=== PATIENT | male | born 1955 | race Caucasian/White ===

== ENCOUNTER 2022-11-16 08:24 | Outpatient (OUT) | payer OTHER, SELFPAY ==
[2022-11-16 08:42] LABS: Basophils Absolute Auto 0.1 10^3/uL (0.0-0.1); Basophils Percent Auto 1.2 % (0.2-2.0); Eosinophils Absolute Auto 0.2 10^3/uL (0.0-0.7); Eosinophils Percent Auto 2.3 % (0.9-7.0); Hematocrit 42.7 % (42.0-54.0); Hemoglobin 13.6 g/dL (14.0-18.0); Immature Granulocytes Abs Auto 0.04 10^3/uL (0.00-0.03); Immature Granulocytes Pct Auto 0.5 % (0.0-0.5); Lymphocytes Absolute Auto 0.7 10^3/uL (1.2-3.8); Lymphocytes Percent Auto 9.9 % (20.5-60.0); Mean Corpuscular HGB Conc 31.9 g/dL (29.9-35.2); Mean Corpuscular Volume 87.9 fL (80.0-94.0); Mean Platelet Volume 9.2 fL (9.5-13.5); Monocytes Absolute Auto 0.6 10^3/uL (0.3-0.8); Monocytes Percent Auto 8.4 % (1.7-12.0); Neutrophils Absolute Auto 5.7 10^3/uL (1.4-6.5); Neutrophils Percent Auto 77.7 % (43.0-75.0); Platelet Count 334 10^3/uL (150-450); Red Blood Count 4.86 10^6/uL (4.70-6.10); White Blood Count 7.4 10^3/uL (4.0-11.0)
[2022-11-16 10:09] LABS: Prostate Specific Antigen Dx 0.38 ng/mL (<=4.00)
[2022-11-16 10:10] LABS: Alanine Aminotransferase 20 U/L (16-63); Albumin Globulin Ratio 0.9; Albumin Level 3.8 g/dL (3.4-5.0); Alkaline Phosphatase 100 U/L (46-116); Anion Gap 13.7; Aspartate Amino Transferase 18 U/L (15-37); BUN Creatinine Ratio 5.6; Bilirubin Total 0.9 mg/dL (0.2-1.0); Calcium 8.6 mg/dL (8.5-10.1); Carbon Dioxide 26.2 mmol/L (21.0-32.0); Chloride 92 mmol/L (98-107); Chol HDL Ratio 3.9; Cholesterol 151 mg/dL (<=200); Estimated GFR (African America >60 (>=60); Estimated GFR (Non-African Ame >60 (>=60); Globulin 4.3 g/dL; Glucose 89 mg/dL (74-106); HDL Cholesterol 39 mg/dL (40-60); Potassium 3.9 mmol/L (3.5-5.1); Sodium 128 mmol/L (136-145); Thyroid Stimulating Hormone 0.533 uIU/mL (0.358-3.740); Total Protein 8.1 g/dL (6.4-8.2); Triglycerides 88 mg/dL (<=150); VLDL CHOLESTEROL 17.6 mg/dL
== END 2022-11-16 08:25 | disposition home or self-care (01) ==
LOC: LAB 08:25
PROVIDERS: PCP Family Medicine; Visit Provider Family Medicine
DX: Z00.00 Encounter for general adult medical examination without abnormal findings (principal); E03.9 Hypothyroidism, unspecified
CPT/HCPCS: 36415; 80053; 80061; 84153; 84443; 85025

== ENCOUNTER 2022-12-22 14:03 | Outpatient (OUT) | payer MEDICARE, OTHER, SELFPAY ==
[2022-12-22 14:28] LABS: Basophils Absolute Auto 0.1 10^3/uL (0.0-0.1); Basophils Percent Auto 0.9 % (0.2-2.0); Eosinophils Absolute Auto 0.2 10^3/uL (0.0-0.7); Eosinophils Percent Auto 1.2 % (0.9-7.0); Hematocrit 41.5 % (42.0-54.0); Hemoglobin 12.9 g/dL (14.0-18.0); Immature Granulocytes Abs Auto 0.09 10^3/uL (0.00-0.03); Immature Granulocytes Pct Auto 0.7 % (0.0-0.5); Lymphocytes Absolute Auto 1.1 10^3/uL (1.2-3.8); Lymphocytes Percent Auto 8.5 % (20.5-60.0); Mean Corpuscular HGB Conc 31.1 g/dL (29.9-35.2); Mean Corpuscular Hemoglobin 29.1 pg (25.9-34.0); Mean Corpuscular Volume 93.5 fL (80.0-94.0); Mean Platelet Volume 8.9 fL (9.5-13.5); Monocytes Absolute Auto 0.8 10^3/uL (0.3-0.8); Monocytes Percent Auto 6.5 % (1.7-12.0); Neutrophils Absolute Auto 10.5 10^3/uL (1.4-6.5); Neutrophils Percent Auto 82.2 % (43.0-75.0); Platelet Count 380 10^3/uL (150-450); Red Blood Count 4.44 10^6/uL (4.70-6.10); Red Cell Distribution Width 16.1 % (11.0-15.0); White Blood Count 12.8 10^3/uL (4.0-11.0)
[2022-12-22 15:02] LABS: Alanine Aminotransferase 21 U/L (16-63); Albumin Level 4.1 g/dL (3.4-5.0); Alkaline Phosphatase 86 U/L (46-116); Anion Gap 8.7; Aspartate Amino Transferase 17 U/L (15-37); BUN Creatinine Ratio 6.7; Bilirubin Total 0.5 mg/dL (0.2-1.0); Calcium 8.4 mg/dL (8.5-10.1); Carbon Dioxide 26.7 mmol/L (21.0-32.0); Chloride 86 mmol/L (98-107); Estimated GFR (African America >60 (>=60); Estimated GFR (Non-African Ame >60 (>=60); Glucose 93 mg/dL (74-106); Magnesium 1.7 mg/dL (1.8-2.4); Potassium 3.4 mmol/L (3.5-5.1); Thyroid Stimulating Hormone 0.878 uIU/mL (0.358-3.740); Total Protein 8.1 g/dL (6.4-8.2)
[2022-12-22 15:22] LABS: Sodium 118 mmol/L (136-145)
== END 2022-12-22 14:04 | disposition home or self-care (01) ==
PROVIDERS: PCP Family Medicine; Visit Provider Family Medicine
DX: I10 Essential (primary) hypertension (principal); E03.9 Hypothyroidism, unspecified
CPT/HCPCS: 36415; 80053; 83735; 84443; 85025

== ENCOUNTER 2022-12-25 10:08 | Outpatient (OUT) | payer MEDICARE, OTHER, SELFPAY ==
[2022-12-25 11:28] LABS: Basophils Absolute Auto 0.1 10^3/uL (0.0-0.1); Basophils Percent Auto 1.1 % (0.2-2.0); Eosinophils Absolute Auto 0.2 10^3/uL (0.0-0.7); Eosinophils Percent Auto 1.8 % (0.9-7.0); Hematocrit 44.6 % (42.0-54.0); Hemoglobin 13.7 g/dL (14.0-18.0); Immature Granulocytes Abs Auto 0.08 10^3/uL (0.00-0.03); Immature Granulocytes Pct Auto 0.7 % (0.0-0.5); Lymphocytes Absolute Auto 1.1 10^3/uL (1.2-3.8); Mean Corpuscular HGB Conc 30.7 g/dL (29.9-35.2); Mean Corpuscular Hemoglobin 28.8 pg (25.9-34.0); Mean Corpuscular Volume 93.9 fL (80.0-94.0); Mean Platelet Volume 9.2 fL (9.5-13.5); Monocytes Absolute Auto 0.6 10^3/uL (0.3-0.8); Neutrophils Absolute Auto 8.6 10^3/uL (1.4-6.5); Neutrophils Percent Auto 80.4 % (43.0-75.0); Platelet Count 441 10^3/uL (150-450); Red Blood Count 4.75 10^6/uL (4.70-6.10); Red Cell Distribution Width 16.2 % (11.0-15.0); White Blood Count 10.7 10^3/uL (4.0-11.0)
[2022-12-25 11:34] LABS: Alanine Aminotransferase 23 U/L (16-63); Albumin Globulin Ratio 0.9; Albumin Level 4.1 g/dL (3.4-5.0); Alkaline Phosphatase 91 U/L (46-116); Anion Gap 8.9; Aspartate Amino Transferase 19 U/L (15-37); BUN Creatinine Ratio 8.6; Bilirubin Total 0.6 mg/dL (0.2-1.0); Calcium 8.6 mg/dL (8.5-10.1); Carbon Dioxide 29.1 mmol/L (21.0-32.0); Chloride 98 mmol/L (98-107); Estimated GFR (African America >60 (>=60); Estimated GFR (Non-African Ame >60 (>=60); Globulin 4.5 g/dL; Glucose 120 mg/dL (74-106); Magnesium 1.8 mg/dL (1.8-2.4); Sodium 132 mmol/L (136-145); Thyroid Stimulating Hormone 0.622 uIU/mL (0.358-3.740); Total Protein 8.6 g/dL (6.4-8.2)
== END 2022-12-25 10:09 | disposition home or self-care (01) ==
PROVIDERS: PCP Family Medicine; Visit Provider Family Medicine
DX: I10 Essential (primary) hypertension (principal); E03.9 Hypothyroidism, unspecified
CPT/HCPCS: 36415; 80053; 83735; 84443; 85025

== ENCOUNTER 2023-07-18 10:07 | Outpatient (OUT) | payer MEDICARE, OTHER, SELFPAY ==
[2023-07-18 11:58] LABS: Alanine Aminotransferase 29 U/L (16-63); Albumin Globulin Ratio 0.9; Albumin Level 3.5 g/dL (3.4-5.0); Alkaline Phosphatase 111 U/L (46-116); Anion Gap 12.4; Aspartate Amino Transferase 24 U/L (15-37); BUN Creatinine Ratio 9.2; Bilirubin Total 0.5 mg/dL (0.2-1.0); Calcium 8.4 mg/dL (8.5-10.1); Carbon Dioxide 27.8 mmol/L (21.0-32.0); Chloride 97 mmol/L (98-107); Estimated GFR (African America >60 (>=60); Estimated GFR (Non-African Ame >60 (>=60); Glucose 108 mg/dL (74-106); Magnesium 1.9 mg/dL (1.8-2.4); Potassium 4.2 mmol/L (3.5-5.1); Sodium 133 mmol/L (136-145); TSH W/ REFLEX FT4 0.406 uIU/mL (0.358-3.740); Total Protein 7.5 g/dL (6.4-8.2)
== END 2023-07-18 10:08 | disposition home or self-care (01) ==
LOC: LAB 10:10
PROVIDERS: PCP Family Medicine; Visit Provider Family Medicine
DX: M79.89 Other specified soft tissue disorders (principal)
CPT/HCPCS: 36415; 80053; 83735; 83880; 84443

== ENCOUNTER 2023-07-30 10:12 | Outpatient (OUT) | payer MEDICARE, OTHER, SELFPAY ==
[2023-07-30 10:37] LABS: Basophils Absolute Auto 0.1 10^3/uL (0.0-0.1); Basophils Percent Auto 1.3 % (0.2-2.0); Eosinophils Absolute Auto 0.2 10^3/uL (0.0-0.7); Eosinophils Percent Auto 2.2 % (0.9-7.0); Hematocrit 42.6 % (42.0-54.0); Hemoglobin 13.1 g/dL (14.0-18.0); Immature Granulocytes Abs Auto 0.05 10^3/uL (0.00-0.03); Immature Granulocytes Pct Auto 0.5 % (0.0-0.5); Lymphocytes Absolute Auto 1.1 10^3/uL (1.2-3.8); Lymphocytes Percent Auto 10.6 % (20.5-60.0); Mean Corpuscular HGB Conc 30.8 g/dL (29.9-35.2); Mean Corpuscular Hemoglobin 29.5 pg (25.9-34.0); Mean Corpuscular Volume 95.9 fL (80.0-94.0); Mean Platelet Volume 9.4 fL (9.5-13.5); Monocytes Absolute Auto 0.9 10^3/uL (0.3-0.8); Neutrophils Absolute Auto 7.5 10^3/uL (1.4-6.5); Neutrophils Percent Auto 76.4 % (43.0-75.0); Platelet Count 366 10^3/uL (150-450); Red Blood Count 4.44 10^6/uL (4.70-6.10); Red Cell Distribution Width 13.4 % (11.0-15.0); White Blood Count 9.9 10^3/uL (4.0-11.0)
== END 2023-07-30 10:13 | disposition home or self-care (01) ==
LOC: LAB 10:15
PROVIDERS: PCP Family Medicine
DX: H02.209 Unspecified lagophthalmos unspecified eye, unspecified eyelid (principal); Z01.812 Encounter for preprocedural laboratory examination
CPT/HCPCS: 36415; 85025

== ENCOUNTER 2024-07-07 08:56 | Outpatient (OUT) | payer MEDICARE, OTHER, SELFPAY ==
--- NOTE | 2024-07-07 09:15 | NM_ITS ---
Patient Name: ALYSSIA GARCES MR#: [id number] : 1955 Exam Date: 07/07/2024 Ordering Doctor: DR. ROMULO CLARK RADIOLOGY REPORT PROCEDURE: NM BETH PERF SPECT REST STR COMPARISON: None. INDICATIONS: CHEST PAIN, SYNCOPE, HYPERTENSION TECHNIQUE: Exam Description: Rest/Stress two day protocol gated SPECT Rest Imagin.6 mCi Tc-99m Cardiolite IV on 07/07/2024 Stress Imaging 25.6 mCi Tc-99m Cardiolite IV on 07/08/2024 Exercise Protocol: Chris Heart Rate (bpm): Rest: 88 Max: 137 PMHR: 89 Blood Pressure: Rest: 162/96 Max: 180/96 Symptoms: Rest and peak stress ECG findings were pending and the exercise portion of the study was pending per attending physician [facility] . For more details, please see separate cardiac stress test report. FINDINGS: QUALITY OF STUDY: Good PERFUSION DEFECT: LOCATION: Inferior SIZE: Moderate SEVERITY: Moderate TYPE: Fixed and likely due to diaphragm attenuation WALL MOTION: Normal wall motion LV SIZE: 125 mL. TID / TCD: 0.9 LVEF: Calculated EF 59%. SUMMARY: Myocardial perfusion imaging study is normal CONCLUSION: 1. Myocardial perfusion is normal with soft tissue attenuation 2. Global left ventricular systolic function is normal 3. No evidence of transient ischemic dilatation Dictated by: Edgar Vasquez M.D. on 07/09/2024 at 12:28 Approved by: Edgar Vasquez M.D. on 07/09/2024 at 12:32
== END 2024-07-07 08:57 | disposition home or self-care (01) ==
LOC: NM 08:57
PROVIDERS: PCP Family Medicine; Visit Provider Family Medicine
DX: R55 Syncope and collapse (principal); I10 Essential (primary) hypertension; R07.9 Chest pain, unspecified
CPT/HCPCS: 78452; A9500

== ENCOUNTER 2024-07-08 08:34 | Outpatient (OUT) | payer MEDICARE, OTHER, SELFPAY ==
--- NOTE | 2024-07-08 | PCN_ITS ---
CARDIAC STRESS TEST Requesting Physician: Procedure Date: 07/08/2024 [facility] EKG STRESS TEST INDICATION FOR THE TEST: Syncope. The procedure was explained to the patient including details as well as risks and benefits and the patient was agreeable to proceed. Resting EKG showed normal sinus rhythm, heart rate 85 beats per minute, poor R progression with late transition in precordial leads. No T or ST changes. Resting blood pressure 162/96 mm/Hg.. The patient was exercised according to standard Chris protocol, and was able to finish 4 minutes and 10 seconds of exercise consistent with 7 METS. Patient achieved max heart rate of 137 beats per minute, which represents 89% of age predicted maximum heart rate. Maximum blood pressure of 180/96 mm/Hg. The patient was monitored for a total of 6 minutes into recovery phase with heart rate down to 100 beats per minute and blood pressure to 158/90 mm/Hg. Exercise was terminated secondary to dyspnea and generalized fatigue. The patient did not have any chest, neck, jaw or arm discomfort. EKG during exercise, at peak exercise, and during recovery phase did not show significant T or ST changes or significant arrhythmias. CONCLUSION: 1. Maximal stress test achieving 89% of age predicted maximum heart rate. 2. Appropriate heart rate and blood pressure response to exercise. 3. Mildly reduced exercise tolerance. 4. This stress test is negative for exercise induced ischemic symptoms, EKG changes or arrhythmias. 5. The nuclear perfusion images result will be reported separately. [facility]
== END 2024-07-08 08:35 | disposition home or self-care (01) ==
LOC: CARD 08:35
PROVIDERS: PCP Family Medicine; Visit Provider Family Medicine
DX: I10 Essential (primary) hypertension (principal); R55 Syncope and collapse; R07.9 Chest pain, unspecified
CPT/HCPCS: 93017

== ENCOUNTER 2025-02-18 11:07 | Outpatient (OUT) | payer MEDICARE, OTHER, SELFPAY ==
--- OUTSIDE RECORDS SUMMARY | 2025-02-18 11:20 | XMS_ITS | CCD ---
Author Organization [facility] Care Team Providers Care Steward [place] Name Role Phone Romulo Clark Primary Care Provider DO Romulo Clark Primary Care Provider SIMBA Samayoa Attending Provider Romulo Clark Primary Care Adiel Elizabeth Attending Unavailable Petznick, Romulo Lemos Primary Care Unavai lable Warmbrod, Rosalie Cantu Attending Unav ailable Warmbrod, Rosalie Cantu Attending Unav ailable Petznick, Romulo Lemos Primary Care Unavai lable Warmbrod, Rosalie Cantu Attending Unav ailable Petznick, Romulo Lemos Primary Care Unavai lable Warmbrod, Rosalie Cantu Attending Unav ailable Petznick, Romulo Lemos Primary Care Unavai lable Petznick, Romulo Lemos Primary Care Unavai lable Warmbrod, Rosalie Cantu Consulting UnaAdiel Parker Attending Unavailable Petznick, Romulo Lemos Primary Care Adiel lEizabeth Consulting Unavailable Warmbrod, Rosalie Cantu Attending Unav ailable Warmbrod, Rosalie Cantu Attending Unav ailable Petznick, Romulo Lemos Primary Care Unavai lable Petznick, Romulo Lemos Primary Care Emilyi Adiel Mcleod Attending Unavailable Petznick, Romulo Lemos Primary Care Unavai labAdiel Gallegos Attending Unavailable Warmbrod, Rosalie Cantu Attending Unav ailable Petznick, Romulo Lemos Primary Care Unavai lable Petznick, Romulo Lemos Primary Care Unavai lable Lori, Adiel Attending Unavailable Petznick, Romulo Lemos Primary Care Provider Petnelaick, Romulo Lemos Primary Care Provider LAKSHMI, DR MARTIN Admitting Unavailable SIDDIQUI, DR MARTIN Attending Unavailable PETZNICK, ROMULO Primary Care Unavailable MISC, DR CONDE Admitting Unavailable MISC, DR CONDE Attending Unavailable PETZNICK, ROMULO Primary Care Unavailable MISC, DR CONDE Consulting Unavailable PETZNICK, ROMULO Admitting Unavailable PETZNICK, ROMULO Attending Unavailable PETZNICK, ROMULO Primary Care Unavailable PETZNICK, ROMULO Consulting Unavailable Demetriick, Romulo Lemos Primary Care Provider Petznick, DO Romulo Primary Care Provider Yao [employer]IV[employer]ER Ivanna Attending Provider [phone] Yao Ivanna Unavailable Petznick DO, Romulo Lemos Primary Care Provid er Petznick, DO Romulo Primary Care Provider Petznick, DO Romulo Attending Provider Petznick DO, Romulo Lemos Primary Care Provid er Petznick DO, Romulo Vela Primary Care Provider Unavailable Primary Care Provider Unavailabl e SERG FOSTER Attending Unavailable SERG FOSTER Referring Unavailable Petznick Romulo SAMUEL Unavailable Petznick DO, Romulo Primary Care Provider Wesley Newell DO Emergency Provider Petznick DORomulo Dane Unavailable Petnelaick, Romulo Primary Care Unavailable Wesley Newell Admitting Unavailable Wesley Newell Attending Unavailable Petznick, Romulo Primary Care Unavailable Petznick, Romulo Attending Unavailable Petznick, Romulo Admitting Unavailable Petznick DO, Romulo Dane Primary Care Provider MARILUZ RUBIN Referring Unavailable PETZNICK, ROMULO C Primary Care Unavailable MARILUZ RUBIN Referring Unavailable PETZNICK, ROMULO C Primary Care Unavailable Petznick DO, Romulo Primary Care Provider Wesley Newell DO Emergency Provider MARILUZ RUBIN Attending Unavailable RUBIN, MARILUZ N Admitting Unavailable RUBIN, MARILUZ N Attending Unavailable PETZNICK, ROMULO Vela Primary Care Unavailable PETZNICK, ROMULO Vela Primary Care Unavailable RUBIN, MARILUZ N Referring Unavailable PETZNICK, ROMULO Vela Primary Care Unavailable RUBIN, MARILUZ N Attending Unavailable PETZNICK, ROMULO C Primary Care Unavailable RUBIN, MARILUZ N Admitting Unavailable RUBIN, MARILUZ N Attending Unavailable PETZNICK, ROMULO C Primary Care Unavailable RUBIN, MARILUZ N Attending Unavailable PETZNICK, ROMULO C Primary Care Unavailable RUBIN, MARILUZ N Attending Unavailable PETZNICK, ROMULO Vela Primary Care Unavailable PETZNICK, ROMULO LEMOS Primary Care Unavai lablaurence FUCHS, GABO Ramírez Attending Unavailable PETZNICK, ROMULO LEMOS Primary Care ROXANA Diaz Attending Unavailable MARIO SIDDIQUI Referring Unavailable PETZNICK, ROMULO LEMOS Primary Care Unamilesi lable KOLBYHE, GABO Ramírez Referring Unavailable PETZNICK, ROMULO LEMOS Primary Care Unavai lable PETZNICK, ROMULO LEMOS Primary Care Unavai lable PETZNICK, ROMULO LEMOS Primary Care Unavai lable PETZNICK, ROMULO LEMOS Referring Unavai lable PETZNICK, ROMULO LEMOS Primary Care Unavai lable CATRACHITA MARIEE Attending Unavailable MARIO SIDDIQUI Referring Unavailable PETZNICK, ROMULO LEMOS Primary Care MARTA Lee Attending Unavailable MARTA SALAZAR Admitting Unavailable PETZNICK, ROMULO LEMOS Primary Care Unavai lable PETZNICK, ROMULO LEMOS Primary Care Unavai lable PETZNICK, ROMULO LEMOS Primary Care Unavai lable PETZNICK, ROMULO LEMOS Primary Care Unavai MELANI Sagastume Attending Unavailable PETZNICK, ROMULO LEMOS Primary Care Unavai labMARTA Palma Attending Unavailable PETZNICK, ROMULO LEMOS Primary Care Unavai lable GOSHE, GABO Ramírez Referring Unavailable PETZNICK, ROMULO LEMOS Primary Care Unavathompson thompson SELF Referring Unavailable PETZNICK, ROMULO LEMOS Primary Care Unavai lable GOSHE, GABO Ramírez Referring Unavailable GOSHE, GABO Ramírez Attending Unavailable PETZNICK, ROMULO LEMOS Primary Care Unavai lable PETZNICK, ROMULO LEMOS Primary Care Unavai lable SELF Referring Unavailable HOLLY TANG Attending Unavailable PETZNICK, ROMULO LEMOS Primary Care Unavai lable SELF Referring Unavailable MARIO SIDDIQUI Attending Unavailable PETZNICK, ROMULO LEMOS Primary Care Unavai lable MARIO SIDDIQUI Referring Unavailable PETZNICK, ROMULO LEMOS Primary Care Unavai lable SELF Referring Unavailable PETZNICK, ROMULO LEMOS Primary Care Unavai lable PETZNICK, ROMULO LEMOS Primary Care Unavai lable PETZNICK, ROMULO LEMOS Primary Care Unavai lable PETZNICK, ROMULO LEMOS Primary Care Unavai lable HOLLY TAGN Attending Unavailable PETZNICK, ROMULO LEMOS Primary Care Unavai lable SELF Referring Unavailable PETZNICK, ROMULO LEMOS Primary Care Unavai lable MATRA SALAZAR Attending Unavailable TAYLOR MARQUEZ Attending Unavailable PETZNICK, ROMULO Vela Referring Unavailable PETZNICK, ROMULO Vela Attending Unavailable PETITTI, XAVI Villalpando Attending Unavailable FELTERTAYLOR Attending Unavailable PETITTI, XAVI Villalpando Attending Unavailable PETZNICK, ROMULO Vela Attending Unavailable FELTERTAYLOR Attending Unavailable FELTERTAYLOR Attending Unavailable Allergies Allergy ClassificationReported Allergen(s)Allergy TypeDate of OnsetReaction(s) Facility (20 sources)Angiotensin-converting enzyme inhibitor agent; Translations: [LIV INHIBITORS]Drug Xvwjvtlrcuu15-20-7930RivkcSmtrwsoab Clinic (20 sources)Angiotensin-converting enzyme inhibitor agentDrug Intolerance 73-81-9298TiqheCgsbjweuv Clinic (1 source)Angiotensin Converting Enzyme (Liv) InhibitorsDrug allergy (disorder) 53-75-5266Y[facility] Repository (1 source)Angiotensin Converting Enzyme (Liv) InhibitorsDrug allergy (disorder) 35-35[facility]239[facility]dlnxksCh[facility] Medications Current Medications MedicationDrug Class(es)DatesSig (Normalized)Sig (Original)acetaminophen 325 mg oral tablet (20 sources)Start: 06-23-2024 End: 11-44-8220xbeb 2 tablets by mouth every six hours as neededacetaminophen (Tylenol) 325 MG tablet Take 650 mg by mouth every 6 (six) hours if needed 5Activeacetaminophen 325 mg / oxyCODONE hydrochloride 5 mg oral tablet (13 sources)Opioid AgonistStart: 06-20-2024 End: 63-40-4930kuzg 1 tablet by mouth every four hours as neededoxyCODONE- acetaminophen (PERCOCET) 5-325 mg tablet 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 20 tablet 06/20/2024 06/27/2024 ActiveStart: 06-17-2024 End: 60-81-0792Bzmlq: 06-16-2024 End: 01-06-1509wosh 1 tablet into the eye(s) every six hours as needed for pain oxyCODONE-acetaminophen (PERCOCET) 5-325 mg tablet Indications: Pain in right eye 1 tablet every 6 hours as needed for pain 6 tablet 06/16/2024 06/17/2024 Expiredascorbic acid 500 mg chewable tablet (20 sources)Vitamin Ctake 1 tablet by mouth in the morningascorbic acid (Vitamin C) 500 MG tablet Take 500 mg by mouth in the morning. Activetake 2 tablets by mouth once dailyascorbic acid, vitamin C, (VITAMIN C) 500 mg tablet Take 1,000 mg by mouth once daily. Activetake 1 tablet by mouth once dailyascorbic acid, vitamin C, (VITAMIN C) 500 mg tablet Take 500 mg by mouth once daily. 0 Active Vitamin C ActiveComment on above:Take 500 mg by mouth once daily.Take 1,000 mg by mouth once daily.aspirin 81 mg delayed release oral tablet (20 sources)Platelet Aggregation Inhibitor, Nonsteroidal Anti-inflammatory Drug End: 20-21-1352okziydf 81 MG EC tablet 1 (one) time each day at the same time ActiveBABY ASPIRIN ORAL Take by mouth. SuspendedBABY ASPIRIN ORAL Take by mouth. ActiveBABY ASPIRIN ORAL Take by mouth. 0 ActiveComment on above:Take 81 mg by mouth once daily.Take by mouth.carboxymethylcellulose sodium 5 mg/ml ophthalmic solution (20 sources)carboxymethylcellulose (Refresh Plus) 0.5 % ophthalmic solution 1 drop Activecarboxymethylcellulose (REFRESH TEARS) 0.5 % drop Use 1 Drop in both eyes as needed. Active End: 90-99-8079Rtidzoexholanbeeolfmzq Sodium (EYE DROPS OP) Administer into affected eye(s) Ceftazidine 5%-eye drops 2x daily 06/18/2024 Discontinued (Therapy completed)Carboxymethylcellulose Sodium (EYE DROPS OP) Administer into affected eye(s) Ceftazidine 5%-eye drops 2x daily ActiveComment on above:Use 1 Drop in both eyes as needed.Carboxymethylcellulose Sodium (Refresh Contacts) drops (1 source)Start: 80-67-4048Ipooslkvclobqwpojkruqu Sodium (Refresh Contacts) drops Active 1 DROPS EYE-BOTH 4-6 TIMES PER DAY asneeded August 08, 2024 12:00amcefTAZidime ophthlamic solution 5% (50 mg/mL) (IP-CPD) (20 sources)Start: 41-82-3878jxwz 1 drop(s) into the eye(s) twice daily cefTAZidime ophthlamic solution 5% (50 mg/mL) (IP-CPD) Use 1 Drop in the right eye two times a day.15 mL 11 04/16/2024 8:13 AM EST 10/02/2023 SuspendedStart: 05-90-3010gsmn 1 drop(s) into the eye(s) twice dailycefTAZidime ophthlamic solution 5% (50 mg/mL) (IP-CPD) Use 1 Drop in the right eye two times a day.15 mL 11 04/16/2024 8:13 AM EST 10/02/2023 ActiveStart: 45-60-5832lndo 1 drop(s) into the eye(s) twice dailycefTAZidime ophthlamic solution 5% (50 mg/mL) (IP- CPD) Use 1 Drop in the right eye two times a day.15 mL 11 10/02/2023 Active Start: 07-30-2023 End: 46-40-9240eptj 1 drop(s) into the eye(s) every two hourscefTAZidime ophthlamic solution 5% (50 mg/mL) (IP-CPD) Use 1 drop in right eye every 2 hours as directed 15 mL 2 07/30/2023 10/02/2023 DiscontinuedStart: 92-22-1518nrkh 1 drop(s) into the eye(s) every two hourscefTAZidime ophthlamic solution 5% (50 mg/mL) (IP-CPD) Use 1 drop in right eye every 2 hours as directed 15 mL 2 07/30/2023 ActiveStart: 07-27-2023 End: 24-80-1376reee 1 drop(s) into the eye(s) every two hourscefTAZidime ophthlamic solution 5% (50 mg/mL) (IP-CPD) Use 1 Drop in the right eye every 2 hours. 15 mL 2 07/27/2023 08/28/2023 DiscontinuedStart: 02-47-6457ralm 1 drop(s) into the eye(s) every two hourscefTAZidime ophthlamic solution 5% (50 mg/mL) (IP-CPD) Use 1 Drop in the right eye every 2 hours. 15 mL 2 07/27/2023 Active Start: 69-41-1039xgrx 1 drop(s) into the eye(s) every hourcefTAZidime ophthlamic solution 5% (50 mg/mL) (IP-CPD) Place 1 Drop in the right eye every hour while awake. 15 mL 0 07/20/2023 ActiveComment on above:Place 1 Drop in the right eye every hour while awake.Use 1 Drop in the right eye every 2 hours.Use 1 drop in right eye every 2 hours as directedchlorhexidine gluconate 40 mg/ml medicated liquid soap (2 sources)Start: 06-26-2024 End: 74-61-9803kaacsqruvaspi (Hibiclens) 4 % external liquid Indications: Malignant melanoma of neck (Multi) Applytopically once daily as needed for wound care for up to 5 days. 473 mL 06/26/2024 07/03/2024 Discontinued (Stop Taking at Discharge)Start: 06-26-2024 End: 38-34-4976anxa 15 mL by mouth every other daychlorhexidine (Peridex) 0.12 % solution Indications: Malignant melanoma of neck (Multi) Use 15 mL in the mouth or throat if needed (Please rinse mouth night before surgey and morning of surgery) for up to 2 days. 473 mL 06/26/2024 07/03/2024 Discontinued (Stop Taking at Discharge)colchicine 0.6 mg oral tablet (5 sources)Start: 05-19-2024 End: 91-17-1524ipfm 1 tablet by mouth in the morningcolchicine 0.6 mg tablet Take 1 tablet (0.6 mg) by mouth early in the morning.. 05/19/2024 Activedocusate sodium 50 mg / sennosides, mcfp 8.6 mg oral tablet (3 sources)Start: 07-03-2024 End: 49-44-8580ttsr 1 tablet by mouth once dailySenna-Plus 8.6-50 MG tablet Take 1 tablet by mouth Daily 07/03/2024 Activeerythromycin 0.005 mg/mg ophthalmic ointment (20 sources)Macrolide, Macrolide AntimicrobialStart: 33-00-7826fxcnphcltftq (ROMYCIN) 5 mg/gram (0.5 %) ophthalmic ointment Use 1 application in the right eye four times daily. Apply less than a pea-sized amount per application 3.5 g 1 06/23/2024 ActiveStart: 10-09-2022 End: 62-60-4299exgpd 3.5 g into the eye(s) at bedtimeerythromycin (ROMYCIN) 5 mg/gram (0.5 %) ophthalmic ointment apply into right eye at bedtime 3.5 g 2 12/27/2022 ActiveStart: 09-28-2021 End: 20-31-0523tzbhw 3.5 g into the eye(s) at bedtimeerythromycin (ROMYCIN) 5 mg/gram (0.5 %) ophthalmic ointment apply into right eye at bedtime 3.5 g 2 04/12/2022 ActiveStart: 08-24-2021 End: 41-16-4777gwbadfgiphpd (ROMYCIN) 5 mg/gram (0.5 %) ophthalmic ointment Use 1 application in the right eye three times daily. 7 g 2 08/24/2021 09/28/2021 DiscontinuedStart: 05-23-2021 End: 06-51-4872mcvidbhnrkng (ROMYCIN) 5 mg/gram (0.5 %) ophthalmic ointment Use 1 application in the right eye daily at bedtime. Apply 1/2 inch ribbon per application 0 08/05/2021 08/18/2021 DiscontinuedStart: 06-18-2020 End: 72-00-7971mlszedtnrjqf ophthalmic ointment In both eyes and on incisions four times a day X 1 wk then twice aday x 1 wk 7 g 1 06/18/2020 08/05/2021 DiscontinuedStart: 06-10-2020 End: 34-77-3543rqyujhnomqvl ophthalmic ointment Apply 1/2 inch ribbon per application to incision and in eye four times a day X 1 wk then twice a day x 1 wk 7 g 2 06/10/2020 08/05/2021 DiscontinuedErythromycin ActiveErythromycin opthalmic ointment ActiveComment on above:Apply 1/2 inch ribbon per application to incision and in eye four times a day X 1 wk then twice a day x 1 wkIn both eyes and on incisions four times a day X 1 wk then twice a day x 1 wkUse 1 application in the right eye daily at bedtime. Apply 1/2 inch ribbon per applicationUse 1 application in the right eye three times daily.once daily.Use 1 application in the right eye daily at bedtime.apply into right eye at bedtime fluticasone propionate 0.05 mg/actuat metered dose nasal spray (20 sources)CorticosteroidStart: 99-43-4371mhfy 1 spray(s) nasal route once dailyFluticasone Propionate (Allergy Relief (Fluticasone)) 50 mcg/actuation spray,suspension Active 1 SPRAY INTRANASAL Daily August 08, 2024 12:00am administer into each nostrilStart: 04-09-2024 End: 89-32-5167zaix 2 spray(s) nasal route once dailyfluticasone (Flonase) 50 mcg/actuation nasal spray Administer 2 sprays into each nostril once daily. 04/09/2024 ActiveStart: 12-17-2020 End: 34-13-5661qznl 2 spray(s) nasal route once dailyfluticasone (Flonase) 50 MCG/ACT nasal spray Indications: Sinusitis, unspecified chronicity, unspecified location Administer 2 sprays into each nostril Daily 16 g 4 04/09/2024 Active Flonase Activehydroxyurea 500 mg oral capsule (20 sources)AntimetaboliteStart: 01-06-2024 End: 73-79-4535rtnc 1 capsule by mouth twice dailyhydroxyurea (HYDREA) 500 mg capsule Indications: Polycythemia vera (HCC) Take 1 capsule by mouth two times a day. 180 capsule 3 12/04/2024 ActiveStart: 05-14-2023 End: 62-03-8045ytil 1 capsule by mouth twice dailyhydroxyurea (HYDREA) 500 mg capsule Indications: Polycythemia vera (HCC) Take 1 capsule by mouth two times a day. 180 capsule 3 08/28/2023 01/04/2024 DiscontinuedStart: 03-13-2023 End: 13-63-5408zfiy 1 capsule by mouth twice dailyhydroxyurea (HYDREA) 500 mg capsule Indications: Polycythemia vera (HCC) Take 1 capsule by mouth two times a day. Or as directed. 60 capsule 0 03/23/2023 04/18/2023 DiscontinuedStart: 05-02-2022 End: 09-54-8829remp 2 capsules by mouth once dailyhydroxyurea (HYDREA) 500 mg capsule Take 2 capsules by mouth once daily. Or as directed. 180 capsule 3 09/19/2022 03/13/2023 DiscontinuedStart: 10-10-2021 End: 65-13-8922uwnh 1 capsule by mouth twice dailyhydroxyurea (HYDREA) 500 mg capsule Take 1 capsule by mouth twice daily. Or as directed. 180 capsule 3 10/10/2021 05/02/2022 DiscontinuedStart: 05-30-2021 End: 32-05-6969bpnq 1 capsule by mouth twice dailyhydroxyurea (HYDREA) 500 mg capsule Take 1 capsule by mouth twice daily. 180 capsule 3 05/30/2021 10/07/2021 DiscontinuedComment on above:Take 1 capsule by mouth twice daily.Take 1 capsule by mouth twice daily. Or as directed.Take 2 capsules by mouth once daily. Or as directed.Take 1 capsule by mouth two times a day. Or as directed.Take 1 capsule by mouth two times a day.take 1 capsule by mouth twice a daylevocetirizine dihydrochloride 5 mg oral tablet (20 sources)Histamine-1 Receptor AntagonistStart: 01-10-2024 End: 74-66-8795kozh 1 tablet by mouth in the eveninglevocetirizine (Xyzal) 5 MG tablet Indications: Sinusitis, unspecified chronicity, unspecified location , Benign prostatic hyperplasia with urinary obstruction Take 1 tablet (5 mg) by mouth in the evening 90 tablet 3 04/09/2024 04/04/2025 Active End: 37-27-5273kyxfzlwhlahafc (Xyzal) 5 MG tablet Take 5 mg by mouth. Active Xyzal ActiveComment on above:Take 5 mg by mouth.levothyroxine sodium 0.15 mg oral tablet (20 sources)l-ThyroxineStart: 04-05-2021 End: 96-18-8274nkoa 1 tablet by mouth once dailySynthroid 150 MCG tablet Indications: Acquired hypothyroidism TAKE 1 TABLET BY MOUTH DAILY 90 tablet 1 10/06/2024 Activetake 1 tablet by mouth once daily in the morningSynthroid 175 MCG 1 tablet on an empty stomach in the morning Orally Once a day ActiveComment on above:Take 1 tablet by mouth once daily.ondansetron 4 mg disintegrating oral tablet (13 sources)Serotonin-3 Receptor AntagonistStart: 07-03-2024 End: 14-50-2213boqo 1 tablet by mouth every six hours for nauseaondansetron ODT (Zofran-ODT) 4 mg disintegrating tablet Indications: Malignant melanoma of neck (Multi) Dissolve 1 tablet (4 mg) in the mouth every 6 hours if needed for nausea or vomiting for up to 5 days. 20 tablet 07/03/2024 07/08/2024 ActiveStart: 06-23-2024 End: 39-86-8434pdog 1 tablet by mouth every eight hours as neededondansetron (ZOFRAN) 8 mg tablet Take 1 tablet by mouth every 8 hours as needed for nausea/vomiting. 10 tablet 06/23/2024 ActiveoxyCODONE hydrochloride 5 mg oral tablet (4 sources)Opioid AgonistStart: 06-23-2024 End: 03-99-8606kbrb 1 tablet by mouth every eight hours as neededoxyCODONE (Roxicodone) 5 MG immediate release tablet Take 5 mg by mouth every 8 (eight) hours if needed 06/23/2024 Activephenylephrine hydrochloride 25 mg/ml ophthalmic solution (1 source)alpha-1 Adrenergic AgonistStart: 01-15-2024 End: 88-03-6646VAQDUBddskfmd 2.5 % 1 Drop (AK-DILATE, TERRANCE-SYNEPHRINE)polyvinyl alcohol 0.014 ml/ml / povidone 6 mg/ml ophthalmic solution (20 sources)polyvinyl alcohol-povidone (REFRESH) 1.4-0.6 % ophthalmic solution 1 drop into affected eye as needed ActiveComment on above:1 drop into affected eye as neededproparacaine hydrochloride 5 mg/ml ophthalmic solution (1 source)Local AnestheticStart: 01-15-2024 End: 28-08-5258xnfwuatxdvzm 0.5 % 1 Drop (ALCAINE)sodium fluoride 0.011 mg/mg toothpaste (20 sources)Start: 46-92-5208evescotg, sodium, (DENTA-GEL) 1.1 % gel use to BRUSH TEETH 3 to 5 MINUTES once daily 06/21/2022 ActiveComment on above:use to BRUSH TEETH 3 to 5 MINUTES once dailytamsulosin hydrochloride 0.4 mg oral capsule (20 sources)alpha-Adrenergic BlockerStart: 38-83-4116qjsw 1 capsule by mouth every twenty-four hours at bedtimetamsulosin (Flomax) 0.4 MG 24 hr capsule Indications: Benign prostatic hyperplasia with urinary obstruction Take 1 capsule (0.4 mg) by mouth at bedtime 90 capsule 3 04/09/2024 ActiveStart: 34-89-7766jnlm 1 capsule by mouth every twenty-four hours at bedtimetamsulosin (Flomax) 0.4 MG 24 hr capsule Indications: Benign prostatic hyperplasia with urinary obstruction Take 1 capsule (0.4 mg) by mouth at bedtime 90 capsule 3 01/10/2024 ActiveStart: 58-51-5799gjsa 1 capsule by mouth every twenty-four hours at bedtimetamsulosin (Flomax) 0.4 MG 24 hr capsule Indications: Benign prostatic hyperplasia with urinary obstruction take 1 capsule by mouth at bedtime 90 capsule 3 11/12/2023 ActiveStart: 63-47-2947vqth 0.4 mg by mouth once daily at bedtimetamsulosin (FLOMAX) 0.4 mg Take 0.4 mg by mouth daily at bedtime. 12/05/2020 ActiveTamsulosin HCl ActiveComment on above:Take 0.4 mg by mouth daily at bedtime.terbinafine 250 mg oral tablet (2 sources)Allylamine AntifungalStart: 12-10-2023 End: 05-74-4462zqop 1 tablet by mouth once dailyterbinafine (LamISIL) 250 MG tablet Indications: Onychomycosis Take 1 tablet (250 mg) by mouth Daily 90 tablet 12/10/2023 03/09/2024 ActivetraMADol hydrochloride 50 mg oral tablet (3 sources)Opioid AgonistStart: 07-03-2024 End: 14-79-0320nopm 1 tablet by mouth every eight hours for paintraMADol (Ultram) 50 mg tablet Indications: Malignant melanoma of neck (Multi) Take 1 tablet (50 mg) by mouth every 8 hours if needed for severe pain (7 - 10). 10 tablet 07/03/2024 08/07/2024 Discontinued (Stop Taking at Discharge) triamcinolone acetonide 1 mg/ml topical cream (6 sources)CorticosteroidStart: 89-97-8001qhkhuzdfscejv (Kenalog) 0.1 % cream Indications: Other atopic dermatitis Apply topically to hand bid as needed when flaring, set aside when clear. Avoid using on face, axilla, and groin 15 g 11 11/17/2024 Activetropicamide 10 mg/ml ophthalmic solution (1 source)AnticholinergicStart: 01-15-2024 End: 63-91-8461essczlkavra 1 % 1 Drop (MYDRIACYL)valACYclovir 1000 mg oral tablet (7 sources)Herpesvirus Nucleoside Analog DNA Polymerase Inhibitor, Herpes Simplex Virus Nucleoside Analog DNA Polymerase Inhibitor, Herpes Zoster Virus Nucleoside Analog DNA Polymerase InhibitorStart: 08-03-2021 End: 55-83-6780dsdg 1 tablet by mouth three times dailyvalACYclovir (VALTREX) 1 gram Take 1 tablet by mouth three times daily. 90 tablet 3 08/03/2021 09/02/2021 ActiveComment on above:Take 1 tablet by mouth three times daily.vitamin B12 (1 source)Vitamin L28Vnzjsng B 12 Active Completed/Discontinued Medications MedicationDrug Class(es)DatesSig (Normalized)Sig (Original)amLODIPine 5 mg / hydroCHLOROthiazide 12.5 mg / olmesartan medoxomil 40 mg oral tablet (1 source)Thiazide Diuretic, Dihydropyridine Calcium Channel Mars, Angiotensin 2 Receptor Blockertake 1 tablet by mouth every twenty-four hours Bmkhnxctto-srGCGISwqk-DJSU 40-5-12.5 MG 1 tablet Orally Once a day Not-Taking calcium chloride 0.0014 meq/ml / potassium chloride 0.004 meq/ml / sodium chloride 0.103 meq/ml / sodium lactate 0.028 meq/ml injectable solution (1 source)Start: 07-03-2024 End: 92-04-1429zyxp 100 mL intravenously every zhpd246 mL/hr, intravenous, Continuous, Starting on Abigail 07/03/24 at 0900, For 1 day, Recovery (only) cefTAZidime (4 sources)Cephalosporin AntibacterialStart: 09-15-2021 End: 64-07-9415cjks 1 drop(s) into the eye(s) twice dailycefTAZidime ophthalmic solution 2.5% (25 mg/mL) (IP-CPD) Use 1 Drop in the right eye twice daily. 15 mL 1 09/15/2021 09/28/2021 DiscontinuedStart: 73-04-6866dphb 1 drop(s) into the eye(s) twice dailycefTAZidime ophthalmic solution 2.5% (25 mg/mL) (IP-CPD) Use 1 Drop in the right eye twice daily. 15 mL 1 09/15/2021 ActiveComment on above:Use 1 Drop in the right eye twice daily.ciprofloxacin 3 mg/ml ophthalmic solution (11 sources)Quinolone AntimicrobialStart: 08-05-2021 End: 82-12-6723lzxw 1 drop(s) into the eye(s) four times dailyciprofloxacin HCl (CILOXAN) 0.3 % ophthalmic solution Use 1 Drop in the right eye four times daily.0 08/05/2021 09/19/2021 Discontinued (Course of therapy completed)Start: 06-07-2021 End: 02-93-9127bsvg 1 drop(s) into the eye(s) four times dailyciprofloxacin HCl (CILOXAN) 0.3 % ophthalmic solution Use 1 Drop in the right eye four times daily.5 mL 2 06/07/2021 08/03/2021 DiscontinuedComment on above:Use 1 Drop in the right eye four times daily.dexamethasone 6 mg oral tablet (5 sources)CorticosteroidStart: 04-20-2021 End: 66-14-3246rkvb 1 tablet by mouth once dailydexAMETHasone (DECADRON) 6 mg tablet Take 6 mg by mouth once daily. 0 04/20/2021 08/18/2021 Discontinued Comment on above:Take 6 mg by mouth once daily.dexamethasone 1 mg/ml / neomycin 3.5 mg/ml / polymyxin b 72416 unt/ml ophthalmic suspension (8 sources)Aminoglycoside Antibacterial, Polymyxin-class Antibacterial, CorticosteroidStart: 01-30-2022 End: 16-99-9249ltfs 1 drop(s) into the eye(s) four times daily URWIBTFF-JZSRHRUYE-BFZHEDWU 3.5 MG/ML-10,000 UNIT/ML-0.1% EYE DROPS instill 1 drop into right eye four times a day 0 01/30/2022 02/28/2022 DiscontinuedStart: 06-07-2021 End: 23-31-3118bgrx 1 drop(s) into the eye(s) four times dailyneomycin/polymyxin b/dexametha(MAXITROL 3.5 MG/ML-10,000 UNIT/ML-0.1% EYE DROPS,SUSPENSION) Use 1 Drop in the right eye four times daily. 10 mL 5 06/07/2021 08/05/2021 DiscontinuedComment on above:Use 1 Drop in the right eye four times daily. instill 1 drop into right eye four times a dayfluorouracil 50 mg/ml topical cream (9 sources)Nucleoside Metabolic InhibitorStart: 05-20-2024 End: 83-63-5063Zzpmnisrpsyw 5 % cream Discontinued 1 APPLIC TOPICAL Twice daily June 17, 2024 1:00am June 17, 2024 11:24amfurosemide 40 mg oral tablet (5 sources)Loop DiureticStart: 12-07-2022 End: 48-68-6843bapg 1 tablet by mouth once daily in the morningfurosemide (LASIX) 40 mg tablet Take 40 mg by mouth every morning. 0 12/07/2022 03/13/2023 DiscontinuedComment on above:Take 40 mg by mouth every morning.gentamicin 3 mg/ml ophthalmic solution (20 sources)Start: 11-15-2021 End: 08-46-6852mdqj 1 drop(s) into the eye(s) twice dailygentamicin (GENTAK) 0.3 % ophthalmic solution Use 1 Drop in the right eye twice daily. 5 mL 2 02/01/2022 04/12/2022 DiscontinuedStart: 08-03-2021 End: 68-03-0063zqni 1 drop(s) into the eye(s) four times dailygentamicin (GENTAK) 0.3 % ophthalmic solution Use 1 Drop in both eyes four times daily. 15 mL 1 08/03/2021 08/05/2021 DiscontinuedComment on above:Use 1 Drop in both eyes four times daily.Use 1 Drop in the right eye twice daily.hydroCHLOROthiazide 12.5 mg / olmesartan medoxomil 40 mg oral tablet (1 source)Thiazide Diuretic, Angiotensin 2 Receptor Blockertake 1 tablet by mouth every twenty-four hoursBenicar HCT 40-12.5 MG 1 tablet Orally Once a day Not-Takinglinezolid (20 sources)Oxazolidinone AntibacterialStart: 10-02-2023 End: 62-40-3076eghv 1 drop(s) into the eye(s) twice dailylinezolid ophthalmic solution 0.2% (IP-CPD) Use 1 Drop in the right eye two times a day. 15 mL 11 01/15/2024 DiscontinuedStart: 97-97-3698dzmk 1 drop(s) into the eye(s) twice dailylinezolid ophthalmic solution 0.2% (IP-CPD) Use 1 Drop in the right eye two times a day. 15 mL 11 10/02/2023 ActiveStart: 07-30-2023 End: 03-03-6760gazu 1 drop(s) into the eye(s) every two hourslinezolid ophthalmic solution 0.2% (IP-CPD) Use 1 drop in the right eye every 2 hours 15 mL 2 07/30/2023 10/02/2023 DiscontinuedStart: 86-76-7169berg 1 drop(s) into the eye(s) every two hourslinezolid ophthalmic solution 0.2% (IP-CPD) Use 1 drop in the right eye every 2 hours 15 mL 2 07/30/2023 ActiveStart: 07-27-2023 End: 54-23-1721kvdq 1 drop(s) into the eye(s) every two hourslinezolid ophthalmic solution 0.2% (IP-CPD) Use 1 Drop in the right eye every 2 hours. 15 mL 2 07/27/2023 08/28/2023 DiscontinuedStart: 24-49-1542dyvf 1 drop(s) into the eye(s) every two hourslinezolid ophthalmic solution 0.2% (IP-CPD) Use 1 Drop in the right eye every 2 hours. 15 mL 2 07/27/2023 ActiveStart: 39-19-8522iscg 1 drop(s) into the eye(s) every hourlinezolid ophthalmic solution 0.2% (IP-CPD) Use 1 Drop in the right eye every hour while awake. 15 mL 0 07/20/2023 Active End: 55-38-0373oewxqrvkv (Zyvox) 100 MG/5ML suspension 0.2% 2 drops ophtho x daily 09/05/2024 DiscontinuedComment on above:Use 1 Drop in the right eye every hour while awake.Use 1 Drop in the right eye every 2 hours.Use 1 drop in the right eye every 2 hoursMagnesium (1 source)Magnesium Not-Takingmoxifloxacin 5 mg/ml ophthalmic solution (20 sources)Quinolone AntimicrobialStart: 01-26-2023 End: 43-13-8139vqpl 1 drop(s) into the eye(s) three times dailymoxifloxacin (VIGAMOX) 0.5 % ophthalmic solution instill 1 drop into right eye three times a day 3 mL 5 01/26/2023 10/02/2023 DiscontinuedStart: 73-44-3195lbbt 1 drop(s) into the eye(s) three times dailymoxifloxacin (VIGAMOX) 0.5 % ophthalmic solution instill 1 drop into right eye three times a day 3 mL 3 10/09/2022 ActiveStart: 80-78-5970whzt 1 drop(s) into the eye(s) three times daily moxifloxacin (VIGAMOX) 0.5 % ophthalmic solution Use 1 Drop in the right eye three times daily. 3 mL 3 07/19/2022 ActiveStart: 08-24-2021 End: 14-26-7045oewv 1 drop(s) into the eye(s) twice dailymoxifloxacin (VIGAMOX) 0.5 % ophthalmic solution Use 1 Drop in the right eye twice daily. 3 mL 1 09/19/2021 Discontinued (Course of therapy completed) End: 59-99-7065ytihyvjvrjou (VIGAMOX) 0.5 % ophthalmic solution Not Available 0 02/07/2022 DiscontinuedComment on above:Use 1 Drop in the right eye twice daily. Not AvailableUse 1 Drop in the right eye three times daily.instill 1 drop into right eye three times a dayolmesartan medoxomil 20 mg oral tablet (20 sources)Angiotensin 2 Receptor BlockerStart: 06-17-2024 End: 41-39-5312mynr 1 tablet by mouth once dailyOlmesartan 20 mg tablet Discontinued 20 MG PO Daily June 17, 2024 1:00am August 08, 2024 10:10am Start: 04-05-2021 End: 04-37-0750humazqzlro (BENICAR) 40 mg tablet 0.5 tablets once daily. 0 04/05/2021 08/28/2023 DiscontinuedOlmesartan Medoxomil ActiveComment on above: 0.5 tablets once daily.microencapsulated potassium chloride 10 meq extended release oral tablet (5 sources)Start: 12-07-2022 End: 68-22-3822urxg 1 tablet by mouth once daily in the morningpotassium chloride ER (KLOR-CON M10) 10 mEq tablet take 1 tablet by mouth every morning (TAKE WITH LASIX) 0 12/07/2022 03/13/2023 DiscontinuedComment on above:take 1 tablet by mouth every morning (TAKE WITH LASIX)prednisoLONE acetate 10 mg/ml ophthalmic suspension (20 sources)CorticosteroidStart: 02-28-2022 End: 02-50-1536pamiwyepPGKF acetate (PRED FORTE, ECONOPRED PLUS) 1 % ophthalmic suspension Use 1 Drop in the righteye once daily. 10 mL 5 02/28/2022 03/13/2023 Discontinued (Discontinued by another Health Care Provider)Start: 02-28-2022 prednisoLONE acetate (PRED FORTE, ECONOPRED PLUS) 1 % ophthalmic suspension Use 1 Drop in the righteye once daily. 10 mL 5 02/28/2022 ActiveStart: 08-05-2021 End: 41-08-6779oalullkgCLAD acetate (PRED FORTE, ECONOPRED PLUS) 1 % ophthalmic suspension Use 1 Drop in the righteye four times daily. 5 mL 5 08/05/2021 09/19/2021 Discontinued (Discontinued by Patient) End: 05-68-3931ulmrjuvzOLME acetate (PRED FORTE, ECONOPRED PLUS) 1 % ophthalmic suspension 1 Drop twice daily. 0 02/28/2022 DiscontinuedComment on above:Use 1 Drop in the right eye four times daily.1 Drop twice daily.Use 1 Drop in the right eye once daily.predniSONE 20 mg oral tablet (20 sources)Start: 83-54-6103zshi 1 tablet by mouth once dailypredniSONE (DELTASONE) 20 mg tablet Take 1 tablet by mouth once daily. 90 tablet 0 09/28/2021 ActiveStart: 09-05-2021 End: 10-78-2407fsdc 3 tablets by mouth once dailypredniSONE (DELTASONE) 20 mg tablet Take 3 tablets by mouth once daily. 90 tablet 0 09/05/2021 09/28/2021 DiscontinuedComment on above:Take 3 tablets by mouth once daily.Take 1 tablet by mouth once daily.Ys-75j-woyvsnrpkde (Lymphoseek) injection 2.3 millicurie (1 source)Start: 07-02-2024 End: .3 millicurie, intradermal, Once in imaging, Starting on Sun07/02/24 at 1539, For 1 dose, If using for lymphoscintigraphy, administer immediately and up to 15 hours prior to imaging unless otherwise indicated. No imaging for breast injections.Tobramycin (2 sources)Aminoglycoside AntibacterialStart: 03-13-2023 End: 08-13-7926xuin 1 drop(s) into the eye(s) every two hourstobramycin ophthalmic solution 1.4% (13.57 mg/mL) (IP-CPD) Use 1 Drop in the right eye every 2 hours. 7 mL 0 03/13/2023 03/19/2023 DiscontinuedStart: 35-34-5585cpwb 1 drop(s) into the eye(s) every two hourstobramycin ophthalmic solution 1.4% (13.57 mg/mL) (IP-CPD) Use 1 Drop in the right eye every 2 hours. 7 mL 0 03/13/2023 ActiveComment on above:Use 1 Drop in the right eye every 2 hours. tobramycin 13.57 mg/mL ophthalmic drops ([facility]) (1 source)Start: 03-13-2023 End: 68-37-9248vchm 1 drop(s) into the eye(s) every two hourstobramycin 13.57 mg/mL ophthalmic drops ([facility]) Use 1 Drop in the right eye every 2 hours. 7 mL 0 03/13/2023 03/13/2023 DiscontinuedComment on above:Use 1 Drop in the right eye every 2 hours.Vancomycin (13 sources)Glycopeptide AntibacterialStart: 03-13-2023 End: 91-21-8495zekhysyyeq ophthalmic solution 2.5% (25 mg/mL) (IP-CPD) Use 1 Drop in the right eye every 2 hours while awake. 15 mL 0 03/13/2023 07/20/2023 DiscontinuedStart: 61-58-1250xcjaxggrjj ophthalmic solution 2.5% (25 mg/mL) (IP- CPD) Use 1 Drop in the right eye every 2 hours while awake. 15 mL 0 03/13/2023 ActiveComment on above:Use 1 Drop in the right eye every 2 hours while awake. vancomycin 25 mg/mL ophthalmic drops ([facility]) (1 source)Start: 03-13-2023 End: 78-09-8783exxn 1 drop(s) into the eye(s) every two hoursvancomycin 25 mg/mL ophthalmic drops ([facility]) Use 1 Drop in the right eye every 2 hours while awake. 15 mL 0 03/13/2023 03/13/2023 DiscontinuedComment on above:Use 1 Drop in the right eye every 2 hours while awake.Vitamin B Complex (20 sources) End: 07-53-4667sgnmkoc B complex (B-PLEX ORAL) Take by mouth. 0 03/13/2023 Discontinued (Discontinued by another Health Care Provider)vitamin B complex (B- PLEX ORAL) Take by mouth. 0 ActiveComment on above:Take by mouth.Vitamin D (1 source)Vitamin D Not-TakingZinc (20 sources) End: 75-57-7230HOAD ORAL Take 140 mg by mouth. 0 03/13/2023 Discontinued (Discontinued by another Health Care Provider)ZINC ORAL Take 140 mg by mouth. 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; Translations: [Rejection of cornea transplant of righteye]36-71-6184RwbofuipQxzacfxnbh associated with dizziness or vertigo (3 sources)Lightheadedness; Translations: [Dizziness and giddiness]Onset: 846607-92-5583BmtsfqpfRrunybab mellitus without complication (1 source)Hyperglycemia, unspecified; Translations: [Elevated random blood glucose level]Onset: 73-67-1286AbwwfdzyUeysacbhq hypertension (20 sources)Hypertensive disorder; Translations: [Essential (primary) hypertension]Onset: 439350-61-9598UdjujpbHkdle and electrolyte disorders (4 sources)Hyponatremia; Translations: [Hypo-osmolality and hyponatremia] 46-27-4257TvdlzwnvWphegdwfbcy of prostate (20 sources)Benign prostatic hypertrophy with outflow obstruction; Translations: [Benign prostatic hyperplasia with lower urinary tract symptoms]Onset: 12-07-2022 Resolved: 693230-65-8547LcttnuqEypaujqjt of skin (20 sources)Malignant melanoma of neck; Translations: [Malignant melanoma of scalp and neck]Onset: 245105-73-4532JkmkcyaLynjqmtxl of skin (5 sources)History of malignant melanoma of the skin; Translations: [Personal history of malignant melanoma ofskin]98-68-8763DezpkaypQhlyumxfy of unspecified nature or uncertain behavior (20 sources)Polycythemia vera (clinical); Translations: [Polycythemia vera] Onset: 42-23-5787QzsuwxtSobkjffqx of unspecified nature or uncertain behavior (6 sources)Neoplastic disease; Translations: [Neoplasm of unspecified behavior of bone, soft tissue, and skin]08-95-2097NnwtiowdLqtcccjmedb chest pain (4 sources)Chest pain; Translations: [Chest pain, unspecified]88-21-8784Goxzeihb Other and unspecified benign neoplasm (7 sources)Melanocytic nevus of trunk; Translations: [Melanocytic nevi of trunk] 67-19-5056KpxtqtywVovyx and unspecified benign neoplasm (3 sources)Melanocytic nevus of lower limb; Translations: [Melanocytic nevi of unspecified lower limb, including hip]66-64-9610ZmfqognqXmven circulatory disease (7 sources)Spider nevus; Translations: [Nevus, non-neoplastic]65-58-3568Tufpdzsu Other congenital anomalies (20 sources)Anophthalmos of right eye; Translations: [Other anophthalmos]Onset: 340786-08-7920VkwimnbXgksy eye disorders (20 sources)History of penetrating keratoplasty; Translations: [Corneal transplant status]Onset: 76-96-7064AiwucnrWfrpj eye disorders (12 sources)Aphakia of right eye; Translations: [Aphakia, right eye]ChronicOther eye disorders (1 source)Vitreous opacity of right eye; Translations: [Other vitreous opacities, right eye]19-77-6258HnulqapYjtus eye disorders (3 sources)Hemorrhagic choroidal detachment, left eye; Translations: [Hemorrhagic choroidal detachment]20-77-9781ItemilhMzezl eye disorders (20 sources)Phthisis bulbi of right eye; Translations: [Atrophy of globe, right eye]Onset: 071357-92-2784FgebnfdMktpe eye disorders (1 source)Atrophy of globe, right eye; Translations: [Phthisis bulbi of right eye]Onset: 29-08-7183HwpgbetQhtsw eye disorders (3 sources)Corneal scar; Translations: [Unspecified corneal scar and opacity] EpisodicOther eye disorders (1 source)Peripheral ulcerative keratitis of right eye; Translations: [Unspecified corneal ulcer, right eye]EpisodicOther eye disorders (4 sources)Other specified disorders of eye and adnexa; Translations: [OTHER SPEC DISORDERS EYE AND ADNEXA]Onset: 75-84-1194WpwygclrOelxr eye disorders (2 sources)Pain of right eye; Translations: [Ocular pain, right eye]06-16-2024 EpisodicOther non-epithelial cancer of skin (11 sources)Basal cell carcinoma of nose; Translations: [Basal cell carcinoma of skin of nose]Onset: 145320-66-9869XfhrdzbxZlacd nutritional; endocrine; and metabolic disorders (20 sources)Body mass index 30+ - obesity; Translations: [Obesity, unspecified] Onset: 395233-80-2783LftrmngVmnbv nutritional; endocrine; and metabolic disorders (1 source)Body mass index (BMI) 34.0-34.9, adultChronicOther nutritional; endocrine; and metabolic disorders (1 source)Obesity, unspecified; Translations: [Obesity, unspecified]Onset: 89-11-2602UqzaqwyGlolw screening for suspected conditions (not mental disorders or infectious disease) (3 sources)Encounter for screening for malignant neoplasm of prostate; Translations: [Encounter for screening for cardiovascular disorders]Onset: 80-57-8043PtqvqsvdEohjj skin disorders (7 sources)Seborrheic keratosis; Translations: [Other seborrheic keratosis] 30-06-2145PrtlgappMogqd skin disorders (8 sources)Actinic keratosis; Translations: [Actinic keratosis]05-20-2024 EpisodicOther skin disorders (7 sources)Lentiginosis; Translations: [Other melanin hyperpigmentation] 52-48-0643AxwgdvwfEhaoo skin disorders (3 sources)Skin tag; Translations: [Other hypertrophic disorders of the skin] 42-13-5867PsshkpmrVvccubgj codes; unclassified (20 sources)Obstructive sleep apnea syndrome; Translations: [Obstructive sleep apnea (adult) (pediatric)]Onset: 12-07-2022 Resolved: 740698-14-7255FbnwjwnCckeohyt codes; unclassified (1 source)Dependence on enabling machine or device; Translations: [Dependence on other enabling machines and devices]ChronicResidual codes; unclassified (4 sources)Obstructive sleep apnea (adult) (pediatric); Translations: [Obstructive sleep apnea (adult)(pediatric)]Onset: 30-61-3135NifplepMsikxfdg codes; unclassified (2 sources)Postoperative state; Translations: [Other specified postprocedural states]62-76-1455JlvmigmxApbtcsi disorders (20 sources)Hypothyroidism; Translations: [Hypothyroidism, unspecified]Onset: 03-17-2022 Resolved: 891254-53-8726JkmhcjmIkypexaljcuh (1 source)Established PatientOnset: 01-27-2025 Past or Other Problems Problem ClassificationProblemDateDocumented DateEpisodic/ChronicAllergic reactions (20 sources)Radiation dermatitis; 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, unspecified] Onset: 07-03-2017 Resolved: 234246-97-8116CriwwlowNpnnbf; other and unspecified primary (20 sources)Malignant tumor of conjunctiva; Translations: [Malignant neoplasm of right conjunctiva]Onset: 12-07-2022 Resolved: 071078-89-6366CkroadbNrzrmytl (20 sources)Cataract associated with radiation; Translations: [Other specified cataract]Onset: 09-30-2019 Resolved: 850835-68-7285VzpqqtvPrheqfnmnwrws of surgical procedures or medical care (20 sources)Dehiscence of surgical wound; Translations: [Disruption of external operation (surgical) wound, notelsewhere classified, initial encounter]Onset: 10-09-2017 Resolved: 472028-47-4950VjxdzxatUxmblaeh of white blood cells (20 sources)Leukocytosis; Translations: [Elevated white blood cell count, unspecified]Onset: 10-13-2014 Resolved: 567386-40-7444BmzznbsFvuqswobc of lipid metabolism (20 sources)Pure hypercholesterolemia; Translations: [Pure hypercholesterolemia, unspecified]Onset: 12-07-2022 Resolved: 776705-48-8560WhakycuMtccznerdwubrc and diverticulitis (20 sources)Diverticulosis of colon; Translations: [Diverticulosis of large intestine without perforation or abscess without bleeding]Onset: 12-07-2022 Resolved: 092837-92-6754DvsabifWlujnublvxxx; infection of eye (except that caused by tuberculosis or sexually transmitteddisease) (20 sources)Neurotrophic keratoconjunctivitis of right eye; Translations: [Neurotrophic keratoconjunctivitis, right eye]Onset: 10-09-2017 Resolved: 508841-09-1622BfwsgpvHwg-Zbmzngw`s lymphoma (20 sources)Malignant lymphoma of the eye region ; Translations: [Non-Hodgkin lymphoma, unspecified, extranodaland solid organ sites]Onset: 04-10-2017 Resolved: 303834-13-6345OkuqfavCtnqnmpukkg deficiencies (20 sources)Iron deficiency; Translations: [Iron deficiency]Onset: 12-07-2022 Resolved: 976239-57-9489QwrotsrbTuwdtrrxsekumw (20 sources)Degenerative joint disease involving multiple joints; Translations: [Polyosteoarthritis, unspecified]Onset: 12-07-2022 Resolved: 907385-60-1791AxidrwcMscxe eye disorders (20 sources)Cicatricial entropion of right lower eyelid; Translations: [Cicatricial entropion]Onset: 12-12-2017 Resolved: 949700-11-1693FhufmeurCujvh eye disorders (20 sources)Cicatricial ectropion of left lower eyelid; Translations: [Cicatricial ectropion of left lower eyelid]Onset: 12-12-2017 Resolved: 001217-23-9363CsiqkzsmMvvie eye disorders (20 sources)Limbal stem cell deficiency; Translations: [Other specified disorders of cornea, right eye]Onset: 352600-16-9386DykqgjvgZglcy eye disorders (20 sources)Scar of cornea of right eye; Translations: [Unspecified corneal scar and opacity]Onset: 04-05-2021 Resolved: 566572-70-9532UhoaxyypWzmfz eye disorders (20 sources)Perforated corneal ulcer, right eye; Translations: [Perforated corneal ulcer]Onset: 09-11-2017 Resolved: 59-57-6157DmfdhfxqFcqia eye disorders (20 sources)Malposition of eyelashes; Translations: [Trichiasis without entropion left lower eyelid]Onset: 05-11-2022 Resolved: 19-46-7163KwczygbhPkuev eye disorders (20 sources)Central corneal ulcer, right eye; Translations: [Central corneal ulcer]Onset: 05-11-2022 Resolved: 09-77-0770LzawzunaLwesu eye disorders (20 sources)Other specified disorders of cornea, right eye; Translations: [Other corneal disorders]Onset: 05-08-2018 Resolved: 83-14-6684NumsmmthKyzuv male genital disorders (20 sources)Other male erectile dysfunction; Translations: [Impotence of organic origin]Onset: 12-07-2022 Resolved: 236433-75-9139SsrgyklUtiyf nervous system disorders (1 source)Other acute postprocedural pain; Translations: [Post-op pain]Onset: 75-33-0329XthtpnchKgbek nutritional; endocrine; and metabolic disorders (20 sources)Obesity caused by energy imbalance; Translations: [Morbid (severe) obesity due to excess calories]Onset: 12-07-2022 Resolved: 662530-66-3787GdcpgalNhisyfxz codes; unclassified (1 source)Other specified postprocedural states; Translations: [Post-operative state]Onset: 50-99-3820VwbidjgnKttwutqaoiw injury; contusion (20 sources)Conjunctival abrasion; Translations: [Injury of conjunctiva and corneal abrasion without foreign body, right eye, initial encounter]Onset: 05-11-2022 Resolved: 95-81-1891AtqjcjlbUdovdcy (5 sources)Syncope; Translations: [Syncope and collapse]Onset: 08-03-2023 66-97-6432RrjjjuszMmrgouwrxlfp (8 sources)Onset: 06-09-2024 Resolved: Results Test NameValueInterpretationReference RangeFacilityCryotherapy, skin lesionon 37-31-6903ZGXDUniversity of [facility] W Auto Differential panel (Bld)on 01-27-2025 Basophils (Bld) [#/Vol]0.15 10*3/uLHigh<0.11CProtestant Hospital on above:Order Comment: Specimen Type: BLOOD SPECIMENOrdering Facility: [facility] Address:[address] [facility] [place], [place] [address]Jgoetslzs By: #### [id number] ####[facility] LABCLIA [id number] [place], [place] [address]Mbprkblmz/100 WBC (Bld)1.4 %NormalJ.W. Ruby Memorial Hospital on above:Order Comment: Specimen Type: BLOOD SPECIMENOrdering Facility: [facility] Address:[address] [place], [place] [address]Performed By: #### [id number] ####[facility] LABIA [id number] [place], [place] [address]Eeybeadaiarb cell count method Nom (Bld)AutoNormalClevelCleveland Clinic [facility]mount [facility] on above:Order Comment: Specimen Type: BLOOD SPECIMENOrdering Facility: [facility] Address:[address] [place], [place] [address]Performed By: #### [id number] ####[facility] LABIA [id number] [place], [place] [address]Tyzxtqyuxkg (Bld) [#/Vol]0.33 10*3/uLNormal<0.46[facility] on above:Order Comment: Specimen Type: BLOOD SPECIMENOrdering Facility: [facility] Address:[address] [place], [place] [address]Performed By: #### [id number] ####[facility] LABIA [id number] [place], [place] [address]Oyqvzjdaqkv/100 WBC (Bld)3.0 %NormalJ.W. Ruby [facility] Hospital on above:Order Comment: Specimen Type: BLOOD SPECIMENOrdering Facility: [facility] Address:[address] [place], [place] [address]Performed By: #### [id number] ####[facility] LABCLIA [id number] [place], [place] [address]Wmsuwpgkvyo distribution width (RBC) [Ratio]15.9 %High 11.5-15.0[facility] on above:Order Comment: Specimen Type: BLOOD SPECIMENOrdering Facility: [facility] Address:[address] [place], [place] [address]Performed By: #### 89519-7 ####[facility] LABIA [id number] [place] [address] Hematocrit (Bld) [Volume fraction]43.9 %Ffhgwm64.0-51.0[facility] on above:Order Comment: Specimen Type: BLOOD SPECIMENOrdering Facility: [facility] Address:[address] [place], [place] [address]Performed By: #### 60025-1 ####[facility] [id number] [place], [place] [address]Awmrjcpxor (Bld) [Mass/Vol]13.1 g/aFHbjfsi82.0-17.0[facility] on above:Order Comment: Specimen Type: BLOOD SPECIMENOrdering Facility: [facility] Address:[address] [place], [place] [address]Performed By: #### [id number] ####[facility] [id number] [place], [place] [address]Maiqcgmp granulocytes (Bld) [#/Vol]0.07 10*3/uLNormal <0.10[facility] on above:Order Comment: Specimen Type: BLOOD SPECIMENOrdering Facility: [facility] Address:[address] [place], [place] [address]Performed By: #### 77939-4 ####[facility] [id number] [place], [place] [address]Lnvenpib granulocytes/100 WBC (Bld)0.6 %NormalJ.W. Ruby [facility] Hospital on above: Order Comment: Specimen Type: BLOOD SPECIMENOrdering Facility: [facility] Address:[address] [place], [place] [address]Performed By: #### [id number]- 8 ####[facility] LABIA [id number] [place], [place] [address]Yevixwpjaqf (Bld) [#/Vol]1.07 10*3/uLNormal1.00-4.00 [facility] on above:Order Comment: Specimen Type: BLOOD SPECIMENOrdering Facility: [facility] Address:[address] [place], [place] [address]Performed By: #### 66175-0 ####[facility] LABIA [id number] [place], [place] [address]Dyijrwuedtz/100 WBC (Bld)9.7 %NormalJ.W. [facility] on above:Order Comment: Specimen Type: BLOOD SPECIMENOrdering Facility: [facility] Address:[address] [place], [place] [address]Performed By: #### 43326-2 ####[facility] LABCLIA [id number] [place], [place] [address]YHV (RBC) [Entitic mass]27.1 obLamjqe23.0-34.0[facility] on above:Order Comment: Specimen Type: BLOOD SPECIMENOrdering Facility: [facility] Address:[address] [place], [place] [address]Performed By: #### 12535-6 ####[facility] LABIA [id number] [place], [place] [address]AGJH (RBC) [Mass/Vol]29.8 g/dLLow30.5-36.0[facility] on above:Order Comment: Specimen Type: BLOOD SPECIMENOrdering Facility: [facility] Address:[address] [place], [place] [address]Performed By: #### 52791- 8 ####[facility] LABCLIA [id number] [place], [place] [address]XUL (RBC) [Entitic vol]90.7 uAHcbxxd52.0-100.0[facility] on above:Order Comment: Specimen Type: BLOOD SPECIMENOrdering Facility: [facility] Address:[address] [place], [place] [address]Performed By: #### 08273-2 ####[facility] LABIA [id number] [place], [place] [address]Qmsrmodnb (Bld) [#/Vol]0.63 10*3/uLNormal<0.87[facility] on above:Order Comment: Specimen Type: BLOOD SPECIMENOrdering Facility: [facility] Address:[address] [place], [place] [address]Performed By: #### 42858- 8 ####[facility] LABCLIA [id number] [place], [place] [address]Xwnmidtoj/100 WBC (Bld)5.7 %NormalJ.W. [facility] on above:Order Comment: Specimen Type: BLOOD SPECIMENOrdering Facility: [facility] Address:[address] [place], [place] [address]Performed By: #### 34390-3 ####[facility] LABIA [id number] [place], [place] [address]Acqzfijslwn (Bld) [#/Vol]8.74 10*3/uLHigh1.45-7.50[facility] on above:Order Comment: Specimen Type: BLOOD SPECIMENOrdering Facility: [facility] Address:[address] [place], [place] [address]Performed By: #### 11271-2 ####[facility] LABCLIA [id number] [place], [place] [address]Bfoprewdzto/100 WBC (Bld)79.6 %NormalJ.W. [facility] on above:Order Comment: Specimen Type: BLOOD SPECIMENOrdering Facility: [facility] Address:[address] [place], [place] [address]Performed By: #### 57837-3 ####[facility] LABIA [id number] [place], [place] [address]Iroakzjwv RBC (Bld) [#/Vol] 10*3/uLNormal<0.01[facility] on above:Order Comment: Specimen Type: BLOOD SPECIMENOrdering Facility: [facility] Address:[address] [place], [place] [address]Performed By: #### 10617-4 ####[facility] LABCLIA [id number] [place], [place] [address]Gzjsqbzba RBC/100 WBC (Bld) [Ratio]0.0 /100 WBCNormal [facility] on above:Order Comment: Specimen Type: BLOOD SPECIMENOrdering Facility: [facility] Address:[address] [place], [place] [address]Performed By: #### 91337-7 ####[facility] LABCLIA [id number] [place], [place] [address]Vssgoqbh mean volume (Bld) [Entitic vol]9.9 fLNormal9.0-12.7CProtestant Hospital on above:Order Comment: Specimen Type: BLOOD SPECIMENOrdering Facility: [facility] Address:[address] [place] [address] Performed By: #### 24376-6 ####[facility] LABCLIA [id number] [place], [place] [address]Eggjinucc (Bld) [#/Vol]417 10*3/rZErtz305-422LitfsxizxJ.W. [facility] on above:Order Comment: Specimen Type: BLOOD SPECIMENOrdering Facility: [facility] Address:[address] [place], [place] [address]Performed By: #### 60822-4 ####[facility] LABCLIA [id number] [place], [place] [address]PRF (Bld) [#/Vol]4.84 10*6/uLNormal4.20-6.00[facility] on above:Order Comment: Specimen Type: BLOOD SPECIMENOrdering Facility: [facility] Address:[address] [place], [place] [address]Performed By: #### 40112-8 ####[facility] LABCLIA [id number] [place], [place] [address]KYM (Bld) [#/Vol]10.99 10*3/uLNormal3.70-11.00[facility] on above: Order Comment: Specimen Type: BLOOD SPECIMENOrdering Facility: [facility] Address:[address] [place] [address] [place], [place] [address]Hpktpjrso By: #### 57726- 8 ####[facility] LABCLIA [id number] [place], [place] [address]XSR CBC W AUTO DIFF BLDon 51-20-7624Hddbomiit/100 WBC (Bld)1.4 %[facility] BASOPHILS # BLD AUTO0.15HighNITennova Healthcare DIFFERENTIAL METHOD BLDAutoNOMI[facility] EOSINOPHIL # BLD AUTO0.33NITennova Healthcare LYMPHOCYTES # BLD AUTO1.07[facility] MONOCYTES # BLD AUTO 0.63NITennova Healthcare NEUTROPHILS # BLD AUTO8.74[facility] NRBC # BLD AUTO<0.01NITennova Healthcare NRBC/100 WBC BLD-RTO0/100 WBCResearch Psychiatric Center PLATELET # BLD QURH449AvftBNCPAdvanced Surgical Hospital PMV BLD AUTO9.9 fL9.0 - 12.7 fLResearch Psychiatric Center WBC # BLD AUTO10.99NOMetropolitan Saint Louis Psychiatric CenterEosinophils/100 WBC (Bld)3 %[facility] Sports MedicineErythrocyte distribution width (RBC) [Ratio]15.9 % High11.5 - 15.0 %[facility] HealthcareHematocrit (Bld) [Volume fraction]43.9 %39.0 - 51.0 %[facility] HealthcareHemoglobin (Bld) [Mass/Vol]13.1 g/dL13.0 - 17.0 g/dLMercy McCune-Brooks Hospital GRANULOCYTES # BLD AUTO0.07NIRegionalOne Health Center GRANULOCYTES/LEUK NFR BLD AUTO0.6 %[facility] HealthcareInterpretation and review of laboratory resultsAbnormClarion HospitalLymphocytes/100 WBC (Bld)9.7 %[facility] Sports MedicineMCH (RBC) [Entitic mass]27.1 pg26.0 - 34.0 pgMissouri Rehabilitation CenterHC (RBC) [Mass/Vol]29.8 g/dLLow30.5 - 36.0 g/dLMissouri Rehabilitation CenterV (RBC) [Entitic vol]90.7 fL80.0 - 100.0 fLFreeman Orthopaedics & Sports MedicineMonocytes/100 WBC (Bld)5.7 %[facility] Neutrophils/100 WBC (Bld)79.6 %[facility] & Sports MedicineRBC (Bld) [#/Vol]4.84 10*6/uL4.20 - 6.00 m/uLFreeman Orthopaedics & Sports MedicineSpecimen Type: BLOOD SPECIMEN [facility] Address: [address] [place] [address] Original Ordering Provider: CATRACHITA RODRIGUES [facility] HospitalOVSMario [id number] () Office ([place]) MAK GARCES Dean ([id number]) 1955 M Date Time Provider Department 01/27/25 8:30 AM ROXANA PACHECO During your visit today, we recorded the following information about you: Temperature Pulse Respiration Blood pressure 97.9 degrees 79/minute 16/minute 153/99 Weight 119 kg Roxana Pacheco APRN.[employer] 01/27/2025 10:42 AM Signed PATIENT NAME: Mak Garces DATE: 01/27/25 PRIMARY CARE PHYSICIAN: Dr. Romulo Clark OTHER PHYSICIANS: Dr. Gabo Fuchs ([facility] Ophthalmology) Some of the elements of this note have been copied from my previous progress note dated 11/04/24 . All the information has been reviewed carefully. 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 Surgery was 06/23/2024. Since that his pain, headaches, and associate symptoms have resolved. 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 Status post WLE and SLNBx at on 07/03/2024. Lymph nodes were negative. He underwent reexcision on 08/07/2024 for positive margins, and ultimate surgical margins were clear. The patient has recovered from surgery well. Per plastic surgery adjuvant therapy not indicated. The patient has had no other significant medical changes. He remains on Hydrea 500 mg twice daily and is tolerating it well. 11/04/24: - Doing well - Remains on Hydrea 2 tabs daily. - Last phlebotomy was 5-6 months ago. - Seeing veterans employment representative next week. 01/27/25: -Overall doing well -Continues Hydrea -Following with Dermatology Has not needed phlebotomy's for over 10 months MEDICATIONS: hydroxyurea (HYDREA) 500 mg capsule Take 1 capsule by mouth two times a day. erythromycin (ROMYCIN) 5 mg/gram (0.5 %) ophthalmic ointment Use 1 application in the right eye four times daily. Apply less than a pea-sized amount per application acetaminophen (TYLENOL) 325 mg tablet Take 2 tablets by mouth every 6 hours as needed (Mild Pain (1-3)). ondansetron (ZOFRAN) 8 mg tablet Take 1 tablet by mouth every 8 hours as needed for nausea/vomiting. levocetirizine 5 mg tablet Take 5 mg by mouth. cefTAZidime ophthlamic solution 5% (50 mg/mL) (IP-CPD) Use 1 Drop in the right eye two times a day. BABY ASPIRIN ORAL Take by mouth. erythromycin (ROMYCIN) 5 mg/gram (0.5 %) ophthalmic ointment apply into right eye at bedtime fluoride, sodium, (DENTA-GEL) 1.1 % gel use to BRUSH TEETH 3 to 5 MINUTES once daily polyvinyl alcohol-povidone (REFRESH) 1.4-0.6 % ophthalmic solution 1 drop into affected eye as needed ascorbic acid, vitamin C, (VITAMIN C) 500 mg tablet Take 1,000 mg by mouth once daily. levothyroxine (SYNTHROID) 150 mcg tablet Take 1 tablet by mouth once daily. fluticasone (FLONASE) 50 mcg/actuation nasal spray tamsulosin (FLOMAX) 0.4 mg Take 0.4 mg by mouth daily at bedtime. carboxymethylcellulose (REFRESH TEARS) 0.5 % drop Use 1 Drop in both eyes as needed. 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 PAST SURGICAL HISTORY: PAST SURGICAL HISTORY Procedure Laterality Date CHOLECYSTECTOMY 2011 EPILATION OF TRICHIASIS, FORCEPS Right 04/18/2023 EYE SURGERY HX Left 01/17/2018 CONJUNCTIVOPLASTY, RECONSTRUCTION CUL-DE-SAC W/ BUCCAL GRAFT (Left EYE SURGERY HX Right Eye removal EYE SURGERY PROCEDURE Right 10/10/2017 REVISION OR REPAIR OPERATIVE WOUND EYE ANTERIOR SEGMENT MAJOR OR MINOR KERATOPLASTY PENTRG EXCEPT APHAKIA/PSEUDOPHAKIA Right 09/12/2017 PK (Penetrating Keratoplasty) OCULAR SURFACE RECONSTRUCTION AMNIOTIC MEMBRANE PAST SURGICAL HISTORY OF Right EVISCERATION OF OCULAR CONTENTS W/ IMPLANT - Right with Marta Salazar MD on 06/23/2024 PAST SURGICAL HISTORY OF Melanoma removed from left side of neck PAST SURGICAL HISTORY OF Skin cancer removed REFRACTIVE SURGERY OD (RIGHT EYE) 08/01/2023 REVIEW OF SYSTEMS: General: No weight loss, malaise or fevers. HEENT: Negative for frequent or signif (more content not included)...Normal [facility] HospitalComprehensive metabolic 2000 panelon 00-80-2860Ysfxask [Mass/Vol]4.1 g/dLNormal3.9-4.9CUniversity Hospitals Health SystemComtrinity health [facility] on above:Order Comment: Specimen Type: BLOOD SPECIMENOrdering Facility: [facility] Address:[address] [address]ATH[address] [place], [place] [address]Yuycnlmku By: #### 90002- 8, 2532-0 ####RANINVMARIA FERNANDA [facility] LABCLIA [id number] [facility] [place], [place] [address]SHB [Catalytic activity/Vol]108 U/TEyccil62-009 [facility] on above:Order Comment: Specimen Type: BLOOD SPECIMENOrdering Facility: [facility] Address:[address] [place], [place] [address]Performed By: #### 88549-4, 2532-0 ####[facility] CENTERMARIA FERNANDA [facility] LABCLIA [id number] [facility] [place], [place] [address]ZJF [Catalytic activity/Vol]9 U/OLgf57-68QblrzbzmyJ.W. [facility] on above: Order Comment: Specimen Type: BLOOD SPECIMENOrdering Facility: [facility] Address:[address] [place], [place] [address]Performed By: #### 22620- 8, 2531-0 ####RANINVMARIA FERNANDA [facility] LABCLIA [id number] [place], [place] [address]Sdwje gap [Moles/Vol]12 mmol/LNormal8-15[facility] on above:Order Comment: Specimen Type: BLOOD SPECIMENOrdering Facility: [facility] Address:[address] [place], [place] [address]Performed By: #### 51466-3, 2532-0 ####[facility] CENTERMARIA FERNANDA [facility] LABCLIA [id number] [facility] [place], [place] [address]MLN [Catalytic activity/Vol]16 U/FVxnfic50-62AefyetfyaJ.W. [facility] on above:Order Comment: Specimen Type: BLOOD SPECIMENOrdering Facility: [facility] Address:[address] [place], [place] [address]Performed By: #### 88252-5, 2532-0 ####[facility] LABCLIA [id number] [place], [place] [address]Zvojgmgft [Mass/Vol]0.5 mg/dLNormal0.2-1.3 [facility] on above:Order Comment: Specimen Type: BLOOD SPECIMENOrdering Facility: [facility] Address:[address] [place], [place] [address]Performed By: #### 03083-9, 2531-0 ####[facility] LABCLIA [id number] [place], [place] [address]Fjkeoey [Mass/Vol]8.8 mg/dLNormal8.5-10.2CProtestant Hospital on above: Order Comment: Specimen Type: BLOOD SPECIMENOrdering Facility: [facility] Address:[address] [place], [place] [address]Performed By: #### 40684- 8, 2531-0 ####[facility] LABCLIA [id number] [place], [place] [address]Skibmijt [Moles/Vol]97 mmol/XLjy10-758WmagycyaiJ.W. [facility] on above:Order Comment: Specimen Type: BLOOD SPECIMENOrdering Facility: [facility] Address:[address] [place], [place] [address]Performed By: #### 03500-8, 2-0 ####[facility] LABCLIA [id number] [place], [place] [address]DD1 [Moles/Vol]25 mmol/BEcjjww07-81FrpecydppJ.W. [facility] on above:Order Comment: Specimen Type: BLOOD SPECIMENOrdering Facility: [facility] Address:[address] [place], [place] [address]Performed By: #### 62447- 8, 2532-0 ####[facility] LABCLIA [id number] [place], [place] [address]Znsiauqmqg [Mass/Vol]0.97 mg/dLNormal0.73-1.22 [facility] on above:Order Comment: Specimen Type: BLOOD SPECIMENOrdering Facility: [facility] Address:[address] [place], [place] [address]Performed By: #### 02174-7, 2532-0 ####[facility] LABCLIA [id number] [place], [place] [address]mSHGvg SerPlBld CKD-EPI 804473 mL/min/1.73m???Normal>=60[facility] Comment on above:Order Comment: Specimen Type: BLOOD SPECIMENOrdering Facility: [facility] Address:[address] [place], [place] [address]Result Comment: Estimated Glomerular Filtration Rate (eGFR) is calculated using the 2020 CKD-EPI creatinine equation. This equation utilizes serum creatinine, sex, and age as parameters. The creatinine assay has traceable calibration to isotope dilution-mass spectrometry. Refer to KDIGO guidelines for clinical interpretation. In patients with unstable renal function, e.g. those with acute kidney injury, the eGFR may not accurately reflect actual GFR.Performed By: #### 58300-6, ####[facility] LABCLIA [id number] [place], [place] [address]Ivrxemr [Mass/Vol]103 mg/fYQcsz62-74 [facility] HospitalComment on above:Order Comment: Specimen Type: BLOOD SPECIMENOrdering Facility: [facility] Address:[address] [place] [address] Comment: The [place] Diabetes Association (ADA) provides guidance for cutoff values for fasting glucose and random glucose. The ADA defines fasting as no caloric intake for at least 8 hours. Fasting plasma glucose results between 100 to 125 mg/dL indicate increased risk for diabetes (prediabetes). Fasting plasma glucose results greater than or equal to 126 mg/dL meet the criteria for diagnosis of diabetes. In the absence of unequivocal hyperglycemia, results should be confirmed by repeat testing. In a patient with classic symptoms of hyperglycemia or hyperglycemic crisis, random plasma glucose results greater than or equal to 200 mg/dL meet the criteria for diagnosis of diabetes. Reference: Standards of Medical Care in Diabetes 2016, [place] Diabetes Association. Diabetes Care. 2016.39(Suppl 1).Performed By: #### 40303-8, 0 ####[facility] LABCLIA [id number] [place], [place] [address]Twngxgqmt [Moles/Vol]3.7 mmol/LNormal3.7-5.1CProtestant Hospital on above:Order Comment: Specimen Type: BLOOD SPECIMENOrdering Facility: [facility] Address:[address] [place], [place] [address]Performed By: #### 12923-8, 2532-0 ####[facility] LABCLIA [id number] [place], [place] [address]Powvnfw [Mass/Vol]7.5 g/dLNormal6.3-8.0[facility] on above:Order Comment: Specimen Type: BLOOD SPECIMENOrdering Facility: [facility] Address:[address] [place], [place] [address]Performed By: #### 28971- 8, 2531-0 ####[facility] LABCLIA [id number] [place], [place] [address]Fqcvjp [Moles/Vol]134 mmol/CSgt809-089PicuqxbezJ.W. [facility] on above:Order Comment: Specimen Type: BLOOD SPECIMENOrdering Facility: [facility] Address:[address] [place], [place] [address]Performed By: #### 62050-1, 2531-0 ####[facility] LABCLIA [id number] [place], [place] [address]Xpik nitrogen [Mass/Vol]7 mg/dLLow9-24[facility] on above: Order Comment: Specimen Type: BLOOD SPECIMENOrdering Facility: [facility] Address:[address] [place], [place] [address]Performed By: #### 51668- 8, 2532-0 ####[facility] LABCLIA [id number] [place], [place] [address]HET SerPl-cCncon 62-48-1989VJT [Catalytic activity/Vol]216 U/QFxtbzi474-164AuuvexdnqJ.W. [facility] on above: Order Comment: Specimen Type: BLOOD SPECIMENOrdering Facility: [facility] Address:[address] [id number] By: #### 37982- 8, 2532-0 ####CLAUDIA [facility] LABCLIA [id number] [place], [place] [address]Jl Panel Informationon 37-48-6915Ymga of biopsy: tangential Informed consent: discussed and consent obtained Informed consent comment: The risks and benefits of the biopsy were discussed. Risks include but are not limited to bleeding, infection, scarring, pain, and nerve damage. An opportunity to ask questions prior to the procedure was permitted and all questions were answered. Patient was prepped and draped in usual sterile fashion: area cleansed with alcohol. Anesthesia: the lesion was anesthetized in a standard fashion Anesthetic: 1% lidocaine w/ epinephrine 1-100,000 buffered w/ 8.4% NaHCO3 Instrument used: DermaBlade Hemostasis achieved with: suture and electrodesiccation Outcome: patient tolerated procedure well Outcome comment: The specimen was placed in a prelabeled formalin container to be sent for pathology Post-procedure details: sterile dressing applied and wound care instructions given Post-procedure details comment: Emphasized need to contact clinic for any signs of infection, uncontrollable bleeding, or complications. Dressing type: bandage Additional details: Photo taken Amount of lidocaine used: 1.[address] [facility] ALBUMIN/CREATININE RATIO, URINEon 68-80-4452Yqlzynb DL <= 20 mg/L (U) [Mass/Vol] 75.3 mg/LNormalJ.W. [facility] on above:Order Comment: Specimen Type: URINE SPECIMENOrdering Facility: [facility] [address] Address: [address] [place], [place] [address]Performed By: #### UA ####[facility] LABCLIA [id number] [place] [address] [place] AMERICAAlbumin/Creatinine (U) [Mass ratio]128 mg/gHigh<30[facility] on above:Order Comment: Specimen Type: URINE SPECIMENOrdering Facility: [facility] [address] Address: [address] [place], [place] [address]Result Comment: Adult Male and Female Nephrotic Criteria: <30 mg/g is considered normal to mildly increased 30-300 mg/g is considered moderately increased >300 mg/g is considered severely increased KDIGO. (2013). KDIGO 2012 Clinical Practice Guideline for the Evaluation and Management of Chronic Kidney Disease. Official Journal of the International Society of Nephrology, 3(1), 1-150.Performed By: #### UACR ####[facility] LABCLIA [id number] [place] [address] [place] AMERICACreatinine (U) [Mass/Vol]58.9 mg/zMVtfgap15.0-300.0 [facility] on above:Order Comment: Specimen Type: URINE SPECIMENOrdering Facility: [facility] [address] Address: [address] [place], [place] [address]Performed By: #### UACR ####[facility] LABCLIA [id number] [place] [address] [place] CBC W Auto Differential panel (Bld)on 51-47-8109Jiwtjdwdf (Bld) [#/Vol]0.13 10*3/uLHigh<0.11CProtestant Hospital on above:Order Comment: Specimen Type: BLOOD SPECIMENOrdering Facility: [facility] Address:[address] [place], [place] [address]Performed By: #### 04177-2 ####[facility] LABCLIA [id number] [place], [place] [address]Epaxqfmuh/100 WBC (Bld)1.3 %NormalJ.W. [facility] on above:Order Comment: Specimen Type: BLOOD SPECIMENOrdering Facility: [facility] Address:[address] [place], [place] [address]Performed By: #### 13821-9 ####[facility] LABIA [id number] [place], [place] [address]Wgkqdhnzbscy cell count method Nom (Bld)AutoNormalCProtestant Hospital on above:Order Comment: Specimen Type: BLOOD SPECIMENOrdering Facility: [facility] Address:[address] [place], [place] [address]Performed By: #### 83152-6 ####[facility] LABCLIA [id number] [place], [place] [address]Vpyezoarnxh (Bld) [#/Vol]0.35 10*3/uLNormal<0.46[facility] on above:Order Comment: Specimen Type: BLOOD SPECIMENOrdering Facility: [facility] Address:[address] [place], [place] [address]Performed By: #### 31116-0 ####[facility] LABCLIA [id number] [place], [place] [address]Arcgwiltqjo/100 WBC (Bld)3.5 %NormalJ.W. [facility] Hospital on above:Order Comment: Specimen Type: BLOOD SPECIMENOrdering Facility: [facility] Address:[address] [place], [place] [address]Performed By: #### 49950-1 ####[facility] LABCLIA [id number] [place], [place] [address]Qlwvsuinuof distribution width (RBC) [Ratio]15.5 %High 11.5-15.0[facility] on above:Order Comment: Specimen Type: BLOOD SPECIMENOrdering Facility: [facility] Address:[address] [place], [place] [address]Performed By: #### 65260-3 ####[facility] LABIA [id number] [place] [address] Hematocrit (Bld) [Volume fraction]42.6 %Esnxdj88.0-51.0[facility] on above:Order Comment: Specimen Type: BLOOD SPECIMENOrdering Facility: [facility] Address:[address] [place], [place] [address]Performed By: #### 04466-3 ####[facility] LABIA [id number] [place], [place] [address]Mvczpxnjbz (Bld) [Mass/Vol]12.9 g/dLLow13.0-17.0[facility] on above:Order Comment: Specimen Type: BLOOD SPECIMENOrdering Facility: [facility] Address:[address] [place], [place] [address]Performed By: #### 84659-3 ####[facility] [facility] LABCLIA [id number] [place], [place] [address]Qboxccfp granulocytes (Bld) [#/Vol]0.06 10*3/uLNormal <0.10[facility] on above:Order Comment: Specimen Type: BLOOD SPECIMENOrdering Facility: [facility] Address:[address] [place], [place] [address]Performed By: #### 14194-8 ####[facility] LABIA [id number] [place], [place] [address]Qjdorkrn granulocytes/100 WBC (Bld)0.6 %NormalJ.W. [facility] on above: Order Comment: Specimen Type: BLOOD SPECIMENOrdering Facility: [facility] Address:[address] [place], [place] [address]Performed By: #### 44001- 8 ####[facility] LABCLIA [id number] [place], [place] [address]Eviheteygqq (Bld) [#/Vol]1.11 10*3/uLNormal1.00-4.00 [facility] on above:Order Comment: Specimen Type: BLOOD SPECIMENOrdering Facility: [facility] Address:[address] [place], [place] [address]Performed By: #### 55228-8 ####[facility] LABIA [id number] [place], [place] [address]Nfkhylzafbw/100 WBC (Bld)11.2 %NormalJ.W. [facility] on above:Order Comment: Specimen Type: BLOOD SPECIMENOrdering Facility: [facility] Address:[address] [place], [place] [address]Performed By: #### 27006-1 ####[facility] LABCLIA [id number] [place], [place] [address]UFA (RBC) [Entitic mass]27.2 dnMsblkq77.0-34.0[facility] on above:Order Comment: Specimen Type: BLOOD SPECIMENOrdering Facility: [facility] Address:[address] [place], [place] [address]Performed By: #### 81410-0 ####[facility] LABCLIA [id number] [place], [place] [address]ZYEP (RBC) [Mass/Vol]30.3 g/dLLow30.5-36.0[facility] on above:Order Comment: Specimen Type: BLOOD SPECIMENOrdering Facility: [facility] Address:[address] [place], [place] [address]Performed By: #### 80737- 8 ####[facility] LABCLIA [id number] [place], [place] [address]APP (RBC) [Entitic vol]89.9 eYGlfecd34.0-100.0[facility] on above:Order Comment: Specimen Type: BLOOD SPECIMENOrdering Facility: [facility] Address:[address] [place], [place] [address]Performed By: #### 61094-7 ####[facility] LABCLIA [id number] [place], [place] [address]Zindavjee (Bld) [#/Vol]0.72 10*3/uLNormal<0.87[facility] on above:Order Comment: Specimen Type: BLOOD SPECIMENOrdering Facility: [facility] Address:[address] [place], [place] [address]Performed By: #### 16726- 8 ####[facility] LABCLIA [id number] [place], [place] [address]Yajfnwfen/100 WBC (Bld)7.3 %NormalJ.W. [facility] on above:Order Comment: Specimen Type: BLOOD SPECIMENOrdering Facility: [facility] Address:[address] [place], [place] [address]Performed By: #### 35978-3 ####[facility] LABCLIA [id number] [place], [place] [address]Mwowqyctrix (Bld) [#/Vol]7.56 10*3/uLHigh1.45-7.50[facility] on above:Order Comment: Specimen Type: BLOOD SPECIMENOrdering Facility: [facility] Address:[address] [place], [place] [address]Performed By: #### 02110-4 ####[facility] LABCLIA [id number] [place], [place] [address]Uelztsftzxx/100 WBC (Bld)76.1 %NormalJ.W. [facility] on above:Order Comment: Specimen Type: BLOOD SPECIMENOrdering Facility: [facility] Address:[address] [place], [place] [address]Performed By: #### 88983-1 ####[facility] LABCLIA [id number] [place], [place] [address]Bzfmfnbzh RBC (Bld) [#/Vol] 10*3/uLNormal<0.01[facility] on above:Order Comment: Specimen Type: BLOOD SPECIMENOrdering Facility: [facility] Address:[address] [place], [place] [address]Performed By: #### 82416-2 ####[facility] LABCLIA [id number] [place], [place] [address]Polxczsnf RBC/100 WBC (Bld) [Ratio]0.0 /100 WBCNormal [facility] on above:Order Comment: Specimen Type: BLOOD SPECIMENOrdering Facility: [facility] Address:[address] [place], [place] [address]Performed By: #### 50648-4 ####[facility] LABCLIA [id number] [place], [place] [address]Ogdqrhgi mean volume (Bld) [Entitic vol]10.0 fLNormal9.0-12.7CProtestant Hospital on above:Order Comment: Specimen Type: BLOOD SPECIMENOrdering Facility: [facility] Address:[address] [place] [address] Performed By: #### 26280-7 ####[facility] LABCLIA [id number] [place], [place] [address]Ugmgwqcxo (Bld) [#/Vol]370 10*3/lMJcxdjd999-041XhpyaeiayJ.W. [facility] on above:Order Comment: Specimen Type: BLOOD SPECIMENOrdering Facility: [facility] Address:[address] [place], [place] [address]Performed By: #### 13206-7 ####[facility] LABCLIA [id number] [place], [place] [address]KDQ (Bld) [#/Vol]4.74 10*6/uLNormal4.20-6.00[facility] on above:Order Comment: Specimen Type: BLOOD SPECIMENOrdering Facility: [facility] Address:[address] [place], [place] [address]Performed By: #### 77889-3 ####[facility] LABCLIA [id number] [place], [place] [address]KQQ (Bld) [#/Vol]9.93 10*3/uLNormal3.70-11.00[facility] on above: Order Comment: Specimen Type: BLOOD SPECIMENOrdering Facility: [facility] Address:[address] [place], [place] [address]Performed By: #### 34644- 8 ####[facility] LABCLIA [id number] [place], [place] [address]RMD CBC W AUTO DIFF BLDon 66-62-8570Eolyxlygw/100 WBC (Bld)1.3 %[facility] BASOPHILS # BLD AUTO0.13HighNITennova Healthcare DIFFERENTIAL METHOD BLDAutoNOMI[facility] EOSINOPHIL # BLD AUTO0.35NITennova Healthcare LYMPHOCYTES # BLD AUTO1.11[facility] MONOCYTES # BLD AUTO 0.72NITennova Healthcare NEUTROPHILS # BLD AUTO7.56[facility] NRBC # BLD AUTO<0.01NITennova Healthcare NRBC/100 WBC BLD-RTO0/100 WBCResearch Psychiatric Center PLATELET # BLD [id number] Psychiatric Center PMV BLD AUTO10 fL9.0 - 12.7 fLResearch Psychiatric Center WBC # BLD AUTO9.93[facility] MedicineEosinophils/100 WBC (Bld)3.5 %[facility] Sports MedicineErythrocyte distribution width (RBC) [Ratio]15.5 %High 11.5 - 15.0 %[facility] Sports MedicineHematocrit (Bld) [Volume fraction]42.6 %39.0 - 51.0 %[facility] Sports MedicineHemoglobin (Bld) [Mass/Vol]12.9 g/dLLow13.0 - 17.0 g/dLMercy McCune-Brooks Hospital GRANULOCYTES # BLD AUTO0.06NIRegionalOne Health Center GRANULOCYTES/LEUK NFR BLD AUTO0.6 %[facility] Sports MedicineInterpretation and review of laboratory resultsAbnormalFreeman Orthopaedics & Sports MedicineLymphocytes/100 WBC (Bld)11.2 %[facility] CenterH (RBC) [Entitic mass]27.2 pg26.0 - 34.0 pgMissouri Rehabilitation CenterHC (RBC) [Mass/Vol]30.3 g/dLLow30.5 - 36.0 g/dLMissouri Rehabilitation CenterV (RBC) [Entitic vol]89.9 fL80.0 - 100.0 fLFreeman Orthopaedics & Sports MedicineMonocytes/100 WBC (Bld)7.3 %[facility] Neutrophils/100 WBC (Bld)76.1 %[facility] Sports MedicineRBC (Bld) [#/Vol]4.74 10*6/uL4.20 - 6.00 m/uLFreeman Orthopaedics & Sports MedicineSpecimen Type: BLOOD SPECIMEN [facility] Address: [address], [place] [address] Original Ordering Provider: CATRACHITA GusmanSofie [id number] () Office ([place]) MAK GARCES ([id number]) 1955 Date Time Provider Department 11/04/24 8:20 AM CATRACHITA MARIEE During your visit today, we recorded the following information about you: Temperature Pulse Respiration Blood pressure 97.5 degrees 81/minute 16/minute 163/104 Weight Height 120.3 kg 1.88 m Catrachita Mariee MD 11/04/2024 11:23 AM Signed PATIENT NAME: Mak Garces DATE: 11/04/24 PRIMARY CARE PHYSICIAN: Dr. Romulo Clark OTHER PHYSICIANS: Dr. Gabo Fuchs ([facility] Ophthalmology) Some of the elements of this note have been copied from previous progress note dated 08/12/24. All the information has been reviewed carefully. 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 Surgery was 06/23/2024. Since that his pain, headaches, and associate symptoms have resolved. 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 Status post WLE and SLNBx at on 07/03/2024. Lymph nodes were negative. He underwent reexcision on 08/07/2024 for positive margins, and ultimate surgical margins were clear. The patient has recovered from surgery well. Per plastic surgery adjuvant therapy not indicated. The patient has had no other significant medical changes. He remains on Hydrea 500 mg twice daily and is tolerating it well. 11/04/24: - Doing well - Remains on Hydrea 2 tabs daily. - Last phlebotomy was 5-6 months ago. - Seeing veterans employment representative next week. MEDICATIONS: erythromycin (ROMYCIN) 5 mg/gram (0.5 %) ophthalmic ointment Use 1 application in the right eye four times daily. Apply less than a pea-sized amount per application acetaminophen (TYLENOL) 325 mg tablet Take 2 tablets by mouth every 6 hours as needed (Mild Pain (1-3)). ondansetron (ZOFRAN) 8 mg tablet Take 1 tablet by mouth every 8 hours as needed for nausea/vomiting. levocetirizine 5 mg tablet Take 5 mg by mouth. hydroxyurea (HYDREA) 500 mg capsule Take 1 capsule by mouth two times a day. cefTAZidime ophthlamic solution 5% (50 mg/mL) (IP-CPD) Use 1 Drop in the right eye two times a day. BABY ASPIRIN ORAL Take by mouth. erythromycin (ROMYCIN) 5 mg/gram (0.5 %) ophthalmic ointment apply into right eye at bedtime fluoride, sodium, (DENTA-GEL) 1.1 % gel use to BRUSH TEETH 3 to 5 MINUTES once daily polyvinyl alcohol-povidone (REFRESH) 1.4-0.6 % ophthalmic solution 1 drop into affected eye as needed ascorbic acid, vitamin C, (VITAMIN C) 500 mg tablet Take 1,000 mg by mouth once daily. levothyroxine (SYNTHROID) 150 mcg tablet Take 1 tablet by mouth once daily. fluticasone (FLONASE) 50 mcg/actuation nasal spray tamsulosin (FLOMAX) 0.4 mg Take 0.4 mg by mouth daily at bedtime. carboxymethylcellulose (REFRESH TEARS) 0.5 % drop Use 1 Drop in both eyes as needed. 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 PAST SURGICAL HISTORY: PAST SURGICAL HISTORY Procedure Laterality Date 2011 EPILATION OF TRICHIASIS, FORCEPS Right 04/18/2023 EYE SURGERY HX Left 01/17/2018 CONJUNCTIVOPLASTY, RECONSTRUCTION CUL-DE-SAC W/ BUCCAL GRAFT (Left EYE SURGERY HX Right Eye removal EYE SURGERY PROCEDURE Right 10/10/2017 REVISION OR REPAIR OPERATIVE WOUND EYE ANTERIOR SEGMENT MAJOR OR MINOR KERATOPLASTY PENTRG EXCEPT APHAKIA/PSEUDOPHAKIA Right 09/12/2017 PK (Penetrating Keratoplasty) OCULAR SURFACE RECONSTRUCTION AMNIOTIC MEMBRANE PAST SURGICAL HISTORY OF Right EVISCERATION OF OCULAR CONTENTS W/ IMPLANT - Right with Marta Salazar MD on 06/23/2024 PAST SURGICAL HISTORY OF Melanoma removed from left side of neck PAST SURGICAL HISTORY OF Skin cancer removed REFRACTIVE SURGERY OD (RIGHT EYE) 08/01/2023 REVIEW OF SYSTEMS: General: No weight loss, malaise or fevers. HEENT: Negative for frequent or significant headaches. No changes in hearing, no nose bleeds or other nasal problems. Positive right eye (more content not included)...NormalWilson Memorial HospitalComprehensive metabolic 2000 panelon 25-35-4181Poskmlf [Mass/Vol]4.3 g/dLNormal3.9-4.9CUniversity Hospitals Health System Comment on above:Order Comment: Specimen Type: BLOOD SPECIMENOrdering Facility: [facility] Address:[address] [place] [address] Performed By: #### 82229-8 ####[facility] LABCLIA [id number] [place], [place] [address]EWX [Catalytic activity/Vol]106 U/NAwaest79-769RktfzffrlWilson Memorial HospitalComment on above:Order Comment: Specimen Type: BLOOD SPECIMENOrdering Facility: [facility] Address:[address] [place] [address]Bviwmqjuo By: #### 15745-5 ####[facility] LABCLIA [id number] [place] [place] [address]KWZ [Catalytic activity/Vol]12 U/BEwoyjx34-49GtkxdqhlwJ.W. [facility] on above:Order Comment: Specimen Type: BLOOD SPECIMENOrdering Facility: [facility] Address:[address] [place], [place] [address]Performed By: #### 64140-8 ####[facility]ENTERMARIA FERNANDA [facility] LABCLIA [id number] [place], [place] [address]Xonkr gap [Moles/Vol]11 mmol/LNormal8-15[facility] on above:Order Comment: Specimen Type: BLOOD SPECIMENOrdering Facility: [facility] Address:[address] [place], [place] [address]Performed By: #### 50160- 8 ####[facility]ENTERMARIA [facility] LABCLIA [id number] [facility] [place], [place] [address]GKO [Catalytic activity/Vol]22 U/GXhzqvo47-47QpwnmngzzJ.W. [facility] on above:Order Comment: Specimen Type: BLOOD SPECIMENOrdering Facility: [facility] Address:[address] [place], [place] [address]Performed By: #### 75116-6 ####[facility] LABCLIA [id number] [facility] LEANNCONCEPCIONBAN[facility] [place], [place] [address]Zegyywtvl [Mass/Vol]0.6 mg/dLNormal0.2-1.3CProtestant Hospital on above:Order Comment: Specimen Type: BLOOD SPECIMENOrdering Facility: [facility] Address:[address] [place], [place] [address]Performed By: #### 08325- 8 ####[facility] LABCLIA [id number] [facility] [place], [place] [address]Ctlsnin [Mass/Vol]9.5 mg/dLNormal8.5-10.2CProtestant Hospital on above:Order Comment: Specimen Type: BLOOD SPECIMENOrdering Facility: [facility] Address:[address] [place], [place] [address]Performed By: #### 80346-2 ####[facility] LABCLIA [id number] [place], [place] [address]Auaralld [Moles/Vol]96 mmol/L Voy74-737BeezufxxcJ.W. [facility] on above:Order Comment: Specimen Type: BLOOD SPECIMENOrdering Facility: [facility] Address:[address] [place], [place] [address]Performed By: #### 07854-8 ####[facility] LABCLIA [id number] [place] [address] CO2 [Moles/Vol]26 mmol/URleanc93-83LyeeecprjJ.W. [facility] on above: Order Comment: Specimen Type: BLOOD SPECIMENOrdering Facility: [facility] Address:[address] [place], [place] [address]Performed By: #### 82131- 8 ####[facility] LABCLIA [id number] [place], [place] [address]Uvsczoqbjj [Mass/Vol]0.96 mg/dLNormal0.73-1.22[facility] on above:Order Comment: Specimen Type: BLOOD SPECIMENOrdering Facility: [facility] Address:[address] [place], [place] [address]Performed By: #### 27350-3 ####[facility] LABIA [id number] [place], [place] [address]Jsvjmzzyfv and Glomerular filtration rate.predicted panel (S/P/Bld)87 mL/min/1.73m???Normal>=60 [facility] on above:Order Comment: Specimen Type: BLOOD SPECIMENOrdering Facility: [facility] Address:[address] [place], [place] [address]Result Comment: Estimated Glomerular Filtration Rate (eGFR) is calculated using the 2020 CKD-EPI creatinine equation. This equation utilizes serum creatinine, sex, and age as parameters. The creatinine assay has traceable calibration to isotope dilution-mass spectrometry. Refer to KDIGO guidelines for clinical interpretation. In patients with unstable renal function, e.g. those with acute kidney injury, the eGFR may not accurately reflect actual GFR.Performed By: #### 38361-9 ####[facility] LABIA [id number] [place], [place] [address]Ushhguh [Mass/Vol]99 mg/aEIzxbnl56-55TiuuaohqpJ.W. [facility] on above:Order Comment: Specimen Type: BLOOD SPECIMENOrdering Facility: [facility] Address:[address] [place] [address]Dqbypi Comment: The [place] Diabetes Association (ADA) provides guidance for cutoff values for fast ing glucose and random glucose. The ADA defines fasting as no caloric intake for at least 8 hours. Fasting plasma glucose results between 100 to 125 mg/dL indicate increased risk for diabetes (prediabetes). Fasting plasma glucose results greater than or equal to 126 mg/dL meet the criteria for diagnosis of diabetes. In the absence of unequivocal hyperglycemia, results should be confirmed by repeat testing. In a patient with classic symptoms of hyperglycemia or hyperglycemic crisis, random plasma glucose results greater than or equal to 200 mg/dL meet the criteria for diagnosis of diabetes. Reference: Standards of Medical Care in Diabetes 2016, [place] Diabetes Association. Diabetes Care. 2016.39(Suppl 1).Performed By: #### 67764-5 ####[facility] LABIA [id number] [place], [place] [address]Luexefguh [Moles/Vol]4.4 mmol/LNormal3.7-5.1CProtestant Hospital on above:Order Comment: Specimen Type: BLOOD SPECIMENOrdering Facility: [facility] Address:[address] [place], [place] [address]Ftuvzaquz By: #### 96238-2 ####[facility] LABIA [id number] [place], [place] [address]Qkyyxdt [Mass/Vol]7.7 g/dLNormal6.3-8.0[facility] on above:Order Comment: Specimen Type: BLOOD SPECIMENOrdering Facility: [facility] Address:[address] [place], [place] [address]Performed By: #### 91923- 8 ####[facility] LABCLIA [id number] [place], [place] [address]Pgimtp [Moles/Vol]133 mmol/NRdp209-915VluacswgtJ.W. [facility] Hospital on above:Order Comment: Specimen Type: BLOOD SPECIMENOrdering Facility: [facility] Address:[address] [place], [place] [address]Performed By: #### 62257-5 ####[facility] LABCLIA [id number] [place], [place] [address]Ueot nitrogen [Mass/Vol]8 mg/dL Low9-24[facility] on above:Order Comment: Specimen Type: BLOOD SPECIMENOrdering Facility: [facility] Address:[address] [place], [place] [address]Performed By: #### 79260-8 ####[facility] LABCLIA [id number] [place], [place] [address]EkS1n (Bld)on 21-16-7989Jiygqhd glucose Estimated from glycated hemoglobin (Bld) [Mass/Vol]105 mg/dLNormalCProtestant Hospital on above:Order Comment: Specimen Type: BLOOD SPECIMENOrdering Facility: [facility] [address] Address: [address] [place], [place] [address]Result Comment: eAG: (Estimated average glucose) is a calculated value from HgbA1c and is signs sales representative of the average blood glucose level in the last 2-3 month period.Performed By: #### 60517-7 ####[facility] LABCLIA [id number] [place] [address] [facility] QTWKVTDApW9z (Bld) [Mass fraction]5.3 %Normal4.3-5.6CProtestant Hospital on above:Order Comment: Specimen Type: BLOOD SPECIMENOrdering Facility: [place] [address] Address: [address] [place], [place] [address]Result Comment: [place] Diabetes Association guidelines indicate that patients with HgbA1c in the range 5.7-6.4% are at increased risk for development of diabetes, and intervention by lifestyle modification may be beneficial. HgbA1c greater or equal to 6.5% is considered diagnostic of diabetes.Performed By: #### 33364-8 ####[facility] LABCLIA [id number] EUCD [facility]ITALK [address] [place] [address] [facility] MEDICAL CENTERLipid 1996 panelon 15-19-8475Okpztllymbv [Mass/Vol]162 mg/dL Normal<200Wilson Memorial HospitalComment on above:Order Comment: Specimen Type: BLOOD SPECIMENOrdering Facility: [place] [address] Address: [address] [place], [place] [address]Result Comment: <200 mg/dL, Desirable 200-239 mg/dL, Borderline high >239 mg/dL, HighPerformed By: #### 57976-0 ####[facility] LABCLIA [id number] [address] [place] [address] [facility] LABCLIA [id number] [place] [address]#### 3016-3, 3027 ####[facility] LABCLIA [id number] [address], [facility]95 [facility] CENTERCholesterol in HDL [Mass/Vol]37 mg/dLLow>39[facility] Comment on above:Order Comment: Specimen Type: BLOOD SPECIMENOrdering Facility: [place] [address] Address: [address] [place], [place] [address]Result Comment: 40-59 mg/dL, Acceptable >59 mg/dL, High: Negative risk factor for coronary heart disease <40 mg/dL, Low: Positive risk factor for coronary heart diseasePerformed By: #### 00412-1 ####[facility] LABCLIA [id number] [address] [place] [address] [facility] LABCLIA [id number] [place] [address]#### 3016-3, 3024-7 ####[facility] LABCLIA [id number] [address] [address] [facility] AMERICACholesterol in LDL [Mass/Vol]107 mg/dLHigh<100[facility] on above:Order Comment: Specimen Type: BLOOD SPECIMENOrdering Facility: [facility] 230 Address: [address] [place], [place] [address]Result Comment: <100 mg/dL, Optimal 100-129 mg/dL, Near optimal/above optimal 130-159 mg/dL, Borderline high 160-189 mg/dL, High >189 mg/dL, Very high Secondary prevention optimal LDL Cholesterol levels are recommended to be <70 mg/dL LDL cholesterol is calculated using the [place]-NIH equation.Performed By: #### 60078-5 ####[facility] LABCLIA [id number] [address] [address] [facility] LABCLIA [id number] [place] [address]#### 3016-3, 3024-7 ####[facility] LABCLIA [id number] [address] [address] [facility] AMERICACholesterol in LDL/Cholesterol in HDL [Mass ratio]2.89 {ratio}High<2.54[facility] on above:Order Comment: Specimen Type: BLOOD SPECIMENOrdering Facility: [place] [address] Address: [address] [place], [place] [address]Result Comment: Reference: 1. National Cholesterol Education Program ATP III Guideline At-A-Glance Quick Desk Reference: National Heart, Lung, and Blood Benge. National Institutes of Health. 2001: NIH Publication No. 01-3305. 2. An International Atherosclerosis Society position paper: global recommendations for the management of dyslipidemia: executive summary, Atherosclerosis. 2014: 232(2):410-413.Performed By: #### 33985-2 ####[facility] LABIA [id number] [address] [address] [facility] LABCLIA [id number] [place] [address]#### 3016-3, 7 ####[facility] LABCLIA [id number] [place] [address] [place] AMERICACholesterol in VLDL [Mass/Vol]16 mg/dLNormal<30[facility] on above:Order Comment: Specimen Type: BLOOD SPECIMENOrdering Facility: [place] [address] Address: [address] [place], [place] [address]Performed By: #### 31555-6 ####[facility] LABCLIA [id number] [place] [address] [facility] LABCLIA [id number] [place] [address]#### 3016-3, 3023-10 ####[facility] LABCLIA [id number] [place] [address] [place] AMERICACholesterol non HDL [Mass/Vol]125 mg/dLNormal<130[facility] on above:Order Comment: Specimen Type: BLOOD SPECIMENOrdering Facility: [place] [address] Address: [address] [place], [place] [address]Result Comment: <130 mg/dL, Optimal 130-159 mg/dL, Near optimal/above optimal 160-189 mg/dL, Borderline high 190-219 mg/dL, High >219 mg/dL, Very high Secondary prevention optimal non HDL Cholesterol levels are recommended to be <100 mg/dLPerformed By: #### 05019-3 ####[facility] LABCLIA [id number] [place] [address] [facility] LABCLIA [id number] [place] [address]#### 3016-3, 3023-7 ####[facility] LABCLIA [id number] [address] [place] [address] [facility] CENTERCholesterol.total/Cholesterol in HDL [Mass ratio]4.38 {ratio}Normal<5.10 [facility] on above:Order Comment: Specimen Type: BLOOD SPECIMENOrdering Facility: [place] [address] Address: [address] [place], [place] [address]Performed By: #### 99759-1 ####[facility] LABCLIA [id number] [address] [place] [address] [facility] LABCLIA [id number] [place] [address]#### 3016-3, 3024-7 ####[facility] LABCLIA [id number] [address] [place] [address] [place] [facility] CENTERFASTING TIME12 hrsNormalCProtestant Hospital on above:Order Comment: Specimen Type: BLOOD SPECIMENOrdering Facility: [place] [address] Address: [address] [place], [place] [address]Performed By: #### 34048-8 ####[facility] LABCLIA [id number] [address] [address] [facility] LABCLIA [id number] [place] [address]#### 3016-3, 3024-7 ####[facility] LABCLIA [id number] [address] [place] [address] [place] STATES AMERICATriglyceride [Mass/Vol]99 mg/dL Normal<150[facility] on above:Order Comment: Specimen Type: BLOOD SPECIMENOrdering Facility: [place] [address] Address: [address] [place], [place] [address]Result Comment: <150 mg/dL, Normal 150-199 mg/dL, Borderline high 200-499 mg/dL, High >499 mg/dL, Very highPerformed By: #### 72105-1 ####[facility] LABIA [id number] [place] [address] [facility] LABCLIA [id number] [place] [address]#### 3016-3, 3023-7 ####[facility]PITALIA [id number] [address]PSA/PROSTATE SPECIFIC ANTIGEN SCREENINGon 99-78-0431Feenvono specific Ag [Mass/Vol]0.45 ng/mLNormal<2.60[facility] on above:Order Comment: Specimen Type: BLOOD SPECIMENOrdering Facility: [place] [address] Address: [address] [place], [place] [address]Result Comment: Total PSA test methodology used is the Electrochemiluminescence Immunoassay by [employer]. Total PSA values by differing methodologies cannot be interchanged. Performed By: #### PSAS1 ####[facility] HOSPITALIA [id number] [address]T Free SerPl-mCncon 84-83-8402Nbvy T4 [Mass/Vol]1.6 ng/dLNormal0.9-1.7CProtestant Hospital on above:Order Comment: Specimen Type: BLOOD SPECIMENOrdering Facility: [place] [address] Address: [address] [place] [address] Performed By: #### 84158-3 ####[facility] LABIA [id number] [place] [address] [facility] LABIA [id number] [place] [address]#### 3016-3, 3027 ####[facility] LABIA [id number] [place] [address] [facility] CENTERTS SerPl-aCncon 28-06-1512FAD Qn0.336 m[IU]/LNormal0.270-4.200[facility] on above:Order Comment: Specimen Type: BLOOD SPECIMENOrdering Facility: [place] [place] [address] Address: [address] [place], [place] [address]Performed By: #### 25572-5 ####[facility] LABCLIA [id number] [address]ORTHCOAST UN[facility] LABCLIA [id number] [place] [address]#### 3016-3, 3024-7 ####[facility] LABCLIA [id number] [address]CNPNon 74-80-1284MPIVFqbsgoodk (HEMASA) MAK GARCES ([id number]) 1955 Date Time Provider Department 10/27/24 CATRACHITA MARIEE During your visit today, we recorded the following information about you: Vannesa Woodward MA 10/27/2024 11:47 AM Signed Patient coming in Sunday11/04/24 for Transition of care. Do you want labs before being seen. If so, please add lab orders. Thanks. Vannesa Woodward MA Allergies As of Date: 10/27/2024 Noted Allergy Reaction LIV INHIBITORS 10/05/2014 3 - Cough Date Reviewed: 08/12/2024 Reviewed by: Jessica Pal MA - Fully Assessed Reason for Visit: Lab Orders [1688] Primary Visit Diagnosis:Polycythemia vera (HCC) [D45] Order(s):COMPLETE BLOOD COUNT AND DIFFERENTIAL [SQCBCDIF] Order #: [id number] FUTURE COMPREHENSIVE METABOLIC PANEL [SQCMP] Order #: [id number] FUTURE Prescriptions as of 10/27/2024 - erythromycin (ROMYCIN) 5 mg/gram (0.5 %) ophthalmic ointment Use 1 application in the right eye four times daily. Apply less than a pea-sized amount per application - acetaminophen (TYLENOL) 325 mg tablet Take 2 tablets by mouth every 6 hours as needed (Mild Pain (1-3)). - ondansetron (ZOFRAN) 8 mg tablet Take 1 tablet by mouth every 8 hours as needed for nausea/vomiting. - levocetirizine 5 mg tablet Take 5 mg by mouth. - hydroxyurea (HYDREA) 500 mg capsule Take 1 capsule by mouth two times a day. - cefTAZidime ophthlamic solution 5% (50 mg/mL) (IP-CPD) Use 1 Drop in the right eye two times a day. - BABY ASPIRIN ORAL Take by mouth. - erythromycin (ROMYCIN) 5 mg/gram (0.5 %) ophthalmic ointment apply into right eye at bedtime - fluoride, sodium, (DENTA-GEL) 1.1 % gel use to BRUSH TEETH 3 to 5 MINUTES once daily - polyvinyl alcohol-povidone (REFRESH) 1.4-0.6 % ophthalmic solution 1 drop into affected eye as needed - ascorbic acid, vitamin C, (VITAMIN C) 500 mg tablet Take 1,000 mg by mouth once daily. - levothyroxine (SYNTHROID) 150 mcg tablet Take 1 tablet by mouth once daily. - fluticasone (FLONASE) 50 mcg/actuation nasal spray - tamsulosin (FLOMAX) 0.4 mg Take 0.4 mg by mouth daily at bedtime. - carboxymethylcellulose (REFRESH TEARS) 0.5 % drop Use 1 Drop in both eyes as needed. 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/2017 Exposure keratoconjunctivitis, right [H16.211] 10/09/2017 Rupture of operation wound [T81.31XA] 10/09/2017 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*12/12/2017 Exposure keratoconjunctivitis of right eye [H16*12/12/2017 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] 05/08/2018 Radiation induced cataract [H26.8] 09/30/2019 Preoperative examination [Z01.818] 04/05/2021 06/17/2024 Corneal scar, 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] 04/05/2021 Total, 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.89] 04/05/2021 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 W Auto Differential panel (Bld)on 32-42-0778Uxxbltmpx (Bld) [#/Vol] 0.12 10*3/uLHigh<0.11CProtestant Hospital on above:Order Comment: Specimen Type: BLOOD SPECIMENOrdering Facility: [facility] Address:[address] [place] [address]Ucbadnqat By: #### 92731-5 ####[facility] LABIA [id number] [place], [place] [address]Kglomseca/100 WBC (Bld)1.4 %NormalJ.W. [facility] on above:Order Comment: Specimen Type: BLOOD SPECIMENOrdering Facility: [facility] Address:[address] [place], [place] [address]Performed By: #### 97564-2 ####[facility] LABCLIA [id number] [place], [place] [address]Eeblembvilru cell count method Nom (Bld)AutoNormalClevelCleveland Clinic [facility]mount Hospital on above:Order Comment: Specimen Type: BLOOD SPECIMENOrdering Facility: [facility] Address:[address] [place], [place] [address]Performed By: #### 84575-5 ####[facility] LABCLIA [id number] [place], [place] [address]Ekaynodarqd (Bld) [#/Vol]0.38 10*3/uLNormal<0.46[facility] on above:Order Comment: Specimen Type: BLOOD SPECIMENOrdering Facility: [facility] Address:[address] [place], [place] [address]Performed By: #### 12384-9 ####[facility] LABIA [id number] [place], [place] [address]Ahecpbclhcg/100 WBC (Bld)4.3 %NormalJ.W. [facility] on above:Order Comment: Specimen Type: BLOOD SPECIMENOrdering Facility: [facility] Address:[address] [place], [place] [address]Performed By: #### 43895-2 ####[facility] LABIA [id number] [place], [place] [address]Mwnemwzxnyf distribution width (RBC) [Ratio]15.4 %High 11.5-15.0[facility] on above:Order Comment: Specimen Type: BLOOD SPECIMENOrdering Facility: [facility] Address:[address] [place], [place] [address]Performed By: #### 03783-2 ####[facility] LABCLIA [id number] [place] [address] Hematocrit (Bld) [Volume fraction]41.4 %Ctdxlb22.0-51.0[facility] on above:Order Comment: Specimen Type: BLOOD SPECIMENOrdering Facility: [facility] Address:[address] [place], [place] [address]Performed By: #### 59597-3 ####[facility] LABIA [id number] [place], [place] [address]Utughcptya (Bld) [Mass/Vol]12.6 g/dLLow13.0-17.0[facility] on above:Order Comment: Specimen Type: BLOOD SPECIMENOrdering Facility: [facility] Address:[address] [place], [place] [address]Performed By: #### 06856-7 ####[facility] LABIA [id number] [place], [place] [address]Qkcteknq granulocytes (Bld) [#/Vol]0.04 10*3/uLNormal <0.10[facility] on above:Order Comment: Specimen Type: BLOOD SPECIMENOrdering Facility: [facility] Address:[address] [place], [place] [address]Performed By: #### 37024-8 ####[facility] LABIA [id number] [place], [place] [address]Huqbgozp granulocytes/100 WBC (Bld)0.5 %NormalJ.W. [facility] on above: Order Comment: Specimen Type: BLOOD SPECIMENOrdering Facility: [facility] Address:[address] [place], [place] [address]Performed By: #### 54840- 8 ####[facility] LABIA [id number] [place], [place] [address]Oyychtiknnr (Bld) [#/Vol]1.17 10*3/uLNormal1.00-4.00 [facility] on above:Order Comment: Specimen Type: BLOOD SPECIMENOrdering Facility: [facility] Address:[address] [place], [place] [address]Performed By: #### 12830-3 ####[facility] LABCLIA [id number] [place], [place] [address]Sjgbgnotrzt/100 WBC (Bld)13.3 %NormalJ.W. [facility] on above:Order Comment: Specimen Type: BLOOD SPECIMENOrdering Facility: [facility] Address:[address] [place], [place] [address]Performed By: #### 01147-2 ####[facility] LABCLIA [id number] [place], [place] [address]XHC (RBC) [Entitic mass]27.6 aaFktndb48.0-34.0[facility] on above:Order Comment: Specimen Type: BLOOD SPECIMENOrdering Facility: [facility] Address:[address] [place], [place] [address]Performed By: #### 36699-3 ####[facility] LABCLIA [id number] [place], [place] [address]JNXJ (RBC) [Mass/Vol]30.4 g/dLLow30.5-36.0[facility] on above:Order Comment: Specimen Type: BLOOD SPECIMENOrdering Facility: [facility] Address:[address] [place], [place] [address]Performed By: #### 88039- 8 ####[facility] LABCLIA [id number] [place], [place] [address]BZM (RBC) [Entitic vol]90.6 kCZpfwud68.0-100.0[facility] on above:Order Comment: Specimen Type: BLOOD SPECIMENOrdering Facility: [facility] Address:[address] [place], [place] [address]Performed By: #### 29142-1 ####[facility] LABCLIA [id number] [place], [place] [address]Jdtpcencn (Bld) [#/Vol]0.56 10*3/uLNormal<0.87[facility] on above:Order Comment: Specimen Type: BLOOD SPECIMENOrdering Facility: [facility] Address:[address] [place], [place] [address]Performed By: #### 82454- 8 ####[facility] LABCLIA [id number] [place], [place] [address]Nlrekcjuk/100 WBC (Bld)6.4 %NormalJ.W. [facility] on above:Order Comment: Specimen Type: BLOOD SPECIMENOrdering Facility: [facility] Address:[address] [place], [place] [address]Performed By: #### 40393-6 ####[facility] LABIA [id number] [place], [place] [address]Kjuadfzyfro (Bld) [#/Vol]6.52 10*3/uLNormal1.45-7.50[facility] on above:Order Comment: Specimen Type: BLOOD SPECIMENOrdering Facility: [facility] Address:[address] [place], [place] [address]Performed By: #### 67872-7 ####[facility] LABCLIA [id number] [place], [place] [address]Vimuhrigjse/100 WBC (Bld)74.1 %NormalJ.W. [facility] on above:Order Comment: Specimen Type: BLOOD SPECIMENOrdering Facility: [facility] Address:[address] [place], [place] [address]Performed By: #### 34527-9 ####[facility] LABIA [id number] [place], [place] [address]Xaerbpaqd RBC (Bld) [#/Vol] 10*3/uLNormal<0.01[facility] on above:Order Comment: Specimen Type: BLOOD SPECIMENOrdering Facility: [facility] Address:[address] [place], [place] [address]Performed By: #### 51927-7 ####[facility] LABCLIA [id number] [place], [place] [address]Kynvhocmx RBC/100 WBC (Bld) [Ratio]0.0 /100 WBCNormal [facility] on above:Order Comment: Specimen Type: BLOOD SPECIMENOrdering Facility: [facility] Address:[address] [place], [place] [address]Performed By: #### 29725-2 ####[facility] LABCLIA [id number] [place], [place] [address]Iojbzjty mean volume (Bld) [Entitic vol]9.9 fLNormal9.0-12.7CProtestant Hospital on above:Order Comment: Specimen Type: BLOOD SPECIMENOrdering Facility: [facility] Address:[address] [place] [address] Performed By: #### 07052-4 ####[facility] LABCLIA [id number] [place], [place] [address]Xcejsbnzc (Bld) [#/Vol]310 10*3/sOTdvirm956-593PwgaiagziJ.W. [facility] on above:Order Comment: Specimen Type: BLOOD SPECIMENOrdering Facility: [facility] Address:[address] [place], [place] [address]Performed By: #### 30319-6 ####[facility] LABCLIA [id number] [place], [place] [address]FYH (Bld) [#/Vol]4.57 10*6/uLNormal4.20-6.00[facility] on above:Order Comment: Specimen Type: BLOOD SPECIMENOrdering Facility: [facility] Address:[address] [place], [place] [address]Performed By: #### 32285-2 ####[facility] LABCLIA [id number] [place], [place] [address]UNK (Bld) [#/Vol]8.79 10*3/uLNormal3.70-11.00[facility] on above: Order Comment: Specimen Type: BLOOD SPECIMENOrdering Facility: [facility] Address:[address] [place], [place] [address]Performed By: #### 72215- 8 ####[facility] LABCLIA [id number] [place], [place] [address]GLL CBC W AUTO DIFF BLDon 25-39-1120Auimidajn/100 WBC (Bld)1.4 %[facility] NorthlandF BASOPHILS # BLD AUTO0.12HighNITennova Healthcare DIFFERENTIAL METHOD BLDAutoNOMI[facility] EOSINOPHIL # BLD AUTO0.38NITennova Healthcare LYMPHOCYTES # BLD AUTO1.17[facility] MONOCYTES # BLD AUTO 0.56NITennova Healthcare NEUTROPHILS # BLD AUTO6.52NOProgress [facility] NRBC # BLD AUTO<0.01NITennova Healthcare NRBC/100 WBC BLD-RTO0/100 WBCFreeman Orthopaedics & Sports Medicine CCF PLATELET # BLD [id number] Psychiatric Center PMV BLD AUTO9.9 fL9.0 - 12.7 fLChildren's Mercy NorthlandF WBC # BLD AUTO8.79NOMetropolitan Saint Louis Psychiatric CenterEosinophils/100 WBC (Bld)4.3 % [facility]ics & Sports MedicineErythrocyte distribution width (RBC) [Ratio]15.4 %High11.5 - 15.0 %[facility] HealthcareHematocrit (Bld) [Volume fraction]41.4 %39.0 - 51.0 %NOM HealthcareHemoglobin (Bld) [Mass/Vol]12.6 g/dLLow13.0 - 17.0 g/dLFreeman Orthopaedics & Sports Medicine IMM GRANULOCYTES # BLD AUTO0.04NIRegionalOne Health Center GRANULOCYTES/LEUK NFR BLD AUTO0.5 %[facility] HealthcareInterpretation and review of laboratory resultsAbnormal NOMS HealthcareLymphocytes/100 WBC (Bld)13.3 %[facility] CenterH (RBC) [Entitic mass]27.6 pg26.0 - 34.0 pgMissouri Rehabilitation CenterHC (RBC) [Mass/Vol]30.4 g/dLLow30.5 - 36.0 g/dLMissouri Rehabilitation CenterV (RBC) [Entitic vol]90.6 fL80.0 - 100.0 fLFreeman Orthopaedics & Sports MedicineMonocytes/100 WBC (Bld)6.4 %[facility] & Sports MedicineNeutrophils/100 WBC (Bld) 74.1 %[facility]opa[facility]ics & Sports MedicineRBC (Bld) [#/Vol]4.57 10*6/uL4.20 - 6.00 m/uLMS HealthcareSpecimen Type: BLOOD SPECIMEN [facility] Address: [address] [place] [address] Original Ordering Provider: MARIO ROSAS [facility] HospitalDestruction of lesionon 10-50-1368Jwhehxjlrx: simple Destruction method: electrodesiccation and curettage Informed consent: discussed and consent obtained Informed consent comment: The risks of the procedure were discussed, including, but not limited to risks of scarring, darker or rn house supervisor pigmentary changes, recurrence, infection, and incomplete removal Timeout: patient name, date of , surgical site, and procedure verified Timeout comment: Patient and provider identified site. Site was marked. Photo was taken and shown to patient, patient verified this is the correct site. Procedure prep: Patient was prepped and draped in usual sterile fashion Prep type: Chlorhexidine Anesthesia: the lesion was anesthetized in a standard fashion Anesthetic: 1% lidocaine w/ epinephrine 1-100,000 buffered w/ 8.4% NaHCO3 Curettage performed in three different directions: Yes Electrodesiccation performed over the curetted area: Yes Curettage cycles: 3 Lesion length (cm): 0.9 Lesion width (cm): 0.9 Margin per side (cm): 0 Final wound size (cm): 0.9 Hemostasis achieved with: electrodesiccation Outcome: patient tolerated procedure well with no complications Post-procedure details: wound care instructions given Post-procedure details comment: Post-procedure instructions were given verbally and in writing. The office will be contacted if the lesion fails to resolve despite treatment, or if a side effect develops such as abnormal crusting, scabbing, reddness, discharge, or tenderness. Additional details: Amount of lidocaine used: 1.0 cc Previous accession number: [id number] Orthopaedics & Sports MedicineDestruction of lesionOrdered By: Arti Green on 98-72-2084TKQQFreeman Orthopaedics & Sports MedicineDERATH LAB- DERMATOPATHOLOGYon 28-63-9810LKRN6Nddayufdk report.totalFreeman Orthopaedics & Sports MedicineKitnedhlbrVKRJ3Vlhtgxzzqzafhieo Case: [id number] Orthopaedics & Sports MedicineCofiaxenhxCWUW3Pgnoqthcvov Provider: Mariluz Rubin MD Collected: 08/07/2024 1037NOMetropolitan Saint Louis Psychiatric CenterUinpeqzasvHRJI7Xhodgnry Location: [facility] Received: 08/08/2024 0842[facility] & Sports MedicineIvjkqgpwoxSXYP5Turbdu Tiki MCBRIDE MmdbinnlqwBFDG8Crnzhbbzuox: Karan Paniagua MDFreeman Orthopaedics & Sports MedicineUouyvnibbkBBSH2Vocwhoau: SKIN EXCISION, Excision of left neck short stitch superior, long stitch anteriorFreeman Orthopaedics & Sports MedicineNmjdhxrfhoRMAH9Xsry report.final diagnosisFreeman Orthopaedics & Sports MedicineOpvzerflzgQNKU8XBJY, EXCISION OF LEFT NECK SHORT STITCH SUPERIOR, LONG STITCH ANTERIOR:[facility]ics & Sports MedicineEotirjphzqCKWC9ELWVV CELL CARCINOMA, SUPERFICIAL GROWTH PATTERN, APPROXIMATELY 1 MM FROM THE PERIPHERAL MARGIN, DERMAL NEVUS AND CHANGES CONSISTENT WITH PREVIOUS PROCEDURE, PRESENT ON THE DEEP AND PERIPHERAL MARGIN, WITHOUT RESIDUAL ATYPICAL MELANOCYTIC NEOPLASM SEEN, SEE NOTE. [facility] TzdlclnlxpJTEX0Agnv: The basal cell carcinoma is present in Slide A4 and is approximately 1 mm from the mid posterior margin (at 3 o'clock, if the short stitch superior is 12 o'clock and the long stitch anterior is considered 9 o'clock.)[facility] HealthcareDERM1 Electronically signed out by Karan Paniagua MD [facility] AgvurnnhxmRBJS9Vjhfczogazzsoz signed by Karan Paniagua MD on 08/13/2024 at 1444 EDTMissouri Southern HealthcareHemmmjijqiFFTF9Vsdayqczhp commentNOMetropolitan Saint Louis Psychiatric CenterZjbunwyrbtKCIO2Jz the signature on this report, the individual or group listed as making the Final Interpretation/Diagnosis certifies that they have reviewed this case.[facility] EhmziqfdphBLPA5Rweb report.relevant HxNOIN GfsmzpruqvCCAV9Ide-Cu Diagnosis: Malignant melanoma of neck (Multi)NOMS BceszhczpoDJTM5Khey-Jx Diagnosis: Malignant melanoma of neck (Multi)NOMS HllwyhqmqjSEPF1Xllgstwgx Diagnosis: Malignant melanoma of neck (Multi) C43.4NOMS TebkcgzbxyFEVL9Elodvtli ID: [id number] A, [id number] JleiittomyHMBS6Zwqvalvg Source: SKIN EXCISIONNOMetropolitan Saint Louis Psychiatric CenterHtuxyafaweBAVA7Gmyy/Location: Excision of left neck short stitch superior, long stitch anteriorNOMetropolitan Saint Louis Psychiatric CenterWehdxtqcrhKTYC4Sehexndsqd Comments:[facility] Sports MedicineAmkwiaufukQKPK3Effl report.microscopic observationFreeman Orthopaedics & Sports MedicineEfsmovjirxJMLQ7Gxtrxordsdi examination reveals a specimen that extends into the subcutaneous fat. An area with hori zontally oriented collagen and vertically oriented vessels is present. There is dense solar elastosis. There is polyfilament suture with a foreign body giant cell reaction and there are nested and single benign appearing melanocytes in the dermis. There are nests of basaloid cells in Slide A4 connected to the undersurface of the epidermis. A SOX-10 stain reveals a normal number of melanocytes in this area. All control slides stain appropriately. [facility] Sports MedicinePwflcrlierFJTQ1CQO AP ASR DISCLAIMERNOTodd Ville [address]One or more of the reagents used to perform assays on this specimen MAY have contained components considered to be analyte specific reagents (ASR's). ASR's have not been cleared or approved by the U.S. Food and Drug Administration. These assays were developed and their performance characteristics determined by the Department of Pathology at [facility]. The FDA does not require this test to go through premarket FDA review. This test is used for clinical purposes. It should not be regarded as investigational or for research. This laboratory is certified under the Clinical Laboratory Improvement Amendments (CLIA) as qualified to perform high complexity clinical laboratory testing. The assays were performed with appropriate positive and negative controls which stained appropriately. [facility] Sports MedicineCnaltvdacrQDXF3Wnqw report.gross observationFreeman Orthopaedics & Sports MedicineYimjjbgnutKFRI0J:ALBERTO GusmanXrcoepjciuKWEO6Nzleuzso in formalin is a au and brown, ellipsoid piece of skin measuring 34 x 10 x 3 mm. It was received with a short stitch designated by the surgeon as superior , referred to here as 12 o'clock for the purpose of gross description. It was received with a second long stitch designated by the surgeon as anterior , referred to here as 9 o'clock for the purpose of gross description. The specimen was inked blue on the 12-6 o'clock margin and inkedblack on the 6-12 o'clock margin, then serially sectioned and embedded in toto in five blocks. Block 1 is at 12 o'clock, block 3 is at 9 and 3 o'clock, and block 5 is at 6 o'clock. The tips are embedded in blocks 1 and 5. 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 [facility] on above: Order Comment: Specimen Type: BLOOD SPECIMENOrdering Facility: [facility] Address:[address] [place], [place] [address]Performed By: #### 07508- 8 ####[facility] LABCLIA [id number] [place], [place] [address]Hlbjxcylwwvn cell count method Nom (Bld)AutoNormal [facility] on above:Order Comment: Specimen Type: BLOOD SPECIMENOrdering Facility: [facility] Address:[address] [place], [place] [address]Performed By: #### 76880-8 ####[facility] LABIA [id number] [place], [place] [address]Uchlamzuzhg (Bld) [#/Vol]0.30 10*3/uLNormal<0.46[facility] on above: Order Comment: Specimen Type: BLOOD SPECIMENOrdering Facility: [facility] Address:[address] [place], [place] [address]Performed By: #### 90602- 8 ####[facility] LABIA [id number] [place], [place] [address]Yqnblgkhamy/100 WBC (Bld)3.2 %NormalJ.W. [facility] on above:Order Comment: Specimen Type: BLOOD SPECIMENOrdering Facility: [facility] Address:[address] [place], [place] [address]Performed By: #### 59804-0 ####[facility] LABIA [id number] [place], [place] [address]Xumplqwozay distribution width (RBC) [Ratio]15.4 %High11.5-15.0[facility] on above:Order Comment: Specimen Type: BLOOD SPECIMENOrdering Facility: [facility] Address:[address] [place], [place] [address]Performed By: #### 23371- 8 ####[facility] LABIA [id number] [place], [place] [address]Kusjhskhxg (Bld) [Volume fraction]42.4 %Heumxw51.0-51.0 [facility] on above:Order Comment: Specimen Type: BLOOD SPECIMENOrdering Facility: [facility] Address:[address] [place], [place] [address]Performed By: #### 48467-6 ####[facility] LABIA [id number] [place], [place] [address]Bfznvobxgc (Bld) [Mass/Vol]12.5 g/dLLow13.0-17.0[facility] on above:Order Comment: Specimen Type: BLOOD SPECIMENOrdering Facility: [facility] Address:[address] [place], [place] [address]Performed By: #### 14638- 8 ####[facility] LABIA [id number] [place], [place] [address]Ckrpdvij granulocytes (Bld) [#/Vol]0.07 10*3/uLNormal <0.10[facility] on above:Order Comment: Specimen Type: BLOOD SPECIMENOrdering Facility: [facility] Address:[address] [place], [place] [address]Performed By: #### 10093-0 ####[facility] LABCLIA [id number] [place], [place] [address]Lqshruwy granulocytes/100 WBC (Bld)0.8 %NormalJ.W. [facility] on above: Order Comment: Specimen Type: BLOOD SPECIMENOrdering Facility: [facility] Address:[address] [place], [place] [address]Performed By: #### 52725- 8 ####[facility] LABCLIA [id number] [place], [place] [address]Xxtjggsepnx (Bld) [#/Vol]1.21 10*3/uLNormal1.00-4.00 [facility] on above:Order Comment: Specimen Type: BLOOD SPECIMENOrdering Facility: [facility] Address:[address] [place], [place] [address]Performed By: #### 68802-0 ####[facility] LABIA [id number] [place], [place] [address]Klhjvfywptb/100 WBC (Bld)13.0 %NormalJ.W. [facility] on above:Order Comment: Specimen Type: BLOOD SPECIMENOrdering Facility: [facility] Address:[address] [place], [place] [address]Performed By: #### 45148-8 ####[facility] LABIA [id number] [place], [place] [address]FSP (RBC) [Entitic mass]27.2 vyIihqlv57.0-34.0[facility] on above:Order Comment: Specimen Type: BLOOD SPECIMENOrdering Facility: [facility] Address:[address] [place], [place] [address]Performed By: #### 90031-1 ####[facility] LABCLIA [id number] [place], [place] [address]LGIZ (RBC) [Mass/Vol]29.5 g/dLLow30.5-36.0[facility] on above:Order Comment: Specimen Type: BLOOD SPECIMENOrdering Facility: [facility] Address:[address] [place], [place] [address]Performed By: #### 09626- 8 ####[facility] LABCLIA [id number] [place], [place] [address]QWM (RBC) [Entitic vol]92.4 dLZspdal49.0-100.0[facility] on above:Order Comment: Specimen Type: BLOOD SPECIMENOrdering Facility: [facility] Address:[address] [place], [place] [address]Performed By: #### 37046-7 ####[facility] LABIA [id number] [place], [place] [address]Zwupqbeyg (Bld) [#/Vol]0.55 10*3/uLNormal<0.87[facility] on above:Order Comment: Specimen Type: BLOOD SPECIMENOrdering Facility: [facility] Address:[address] [place], [place] [address]Performed By: #### 91415- 8 ####[facility] LABIA [id number] [place], [place] [address]Hexneaemo/100 WBC (Bld)5.9 %NormalJ.W. [facility] on above:Order Comment: Specimen Type: BLOOD SPECIMENOrdering Facility: [facility] Address:[address] [place], [place] [address]Performed By: #### 96125-1 ####[facility] LABIA [id number] [place], [place] [address]Qwkhopdqmud (Bld) [#/Vol]7.06 10*3/uLNormal1.45-7.50[facility] on above:Order Comment: Specimen Type: BLOOD SPECIMENOrdering Facility: [facility] Address:[address] [place], [place] [address]Performed By: #### 18868-1 ####[facility] LABCLIA [id number] [place], [place] [address]Grldpnuroqy/100 WBC (Bld)75.9 %NormalJ.W. [facility] on above:Order Comment: Specimen Type: BLOOD SPECIMENOrdering Facility: [facility] Address:[address] [place], [place] [address]Performed By: #### 00128-1 ####[facility] LABCLIA [id number] [place], [place] [address]Zmpbcseeo RBC (Bld) [#/Vol] 10*3/uLNormal<0.01[facility] on above:Order Comment: Specimen Type: BLOOD SPECIMENOrdering Facility: [facility] Address:[address] [place], [place] [address]Performed By: #### 02158-3 ####[facility] LABCLIA [id number] [place], [place] [address]Eijrlmgkn RBC/100 WBC (Bld) [Ratio]0.0 /100 WBCNormal [facility] on above:Order Comment: Specimen Type: BLOOD SPECIMENOrdering Facility: [facility] Address:[address] [place], [place] [address]Performed By: #### 45440-5 ####[facility] LABIA [id number] [place], [place] [address]Hswkbwzm mean volume (Bld) [Entitic vol]10.1 fLNormal9.0-12.7CProtestant Hospital on above:Order Comment: Specimen Type: BLOOD SPECIMENOrdering Facility: [facility] Address:[address] [place] [address] Performed By: #### 00546-6 ####[facility] LABCLIA [id number] [place], [place] [address]Puvjnzxmn (Bld) [#/Vol]370 10*3/iLCfmklt890-582AkmnfyvktJ.W. [facility] on above:Order Comment: Specimen Type: BLOOD SPECIMENOrdering Facility: [facility] Address:[address] [place], [place] [address]Performed By: #### 67416-6 ####[facility] LABCLIA [id number] [place], [place] [address]AYH (Bld) [#/Vol]4.59 10*6/uLNormal4.20-6.00[facility] on above:Order Comment: Specimen Type: BLOOD SPECIMENOrdering Facility: [facility] Address:[address] [place], [place] [address]Performed By: #### 01630-2 ####[facility] LABCLIA [id number] [place], [place] [address]ZKA (Bld) [#/Vol]9.30 10*3/uLNormal3.70-11.00[facility] on above: Order Comment: Specimen Type: BLOOD SPECIMENOrdering Facility: [facility] Address:[address] [place], [place] [address]Performed By: #### 22595- 8 ####[facility] LABCLIA [id number] [place], [place] [address]OJE CBC W AUTO DIFF BLDon 93-75-1425Qywyovbkn/100 WBC (Bld)1.2 %NOMS [facility] HospitalF BASOPHILS # BLD AUTO0.11HighNINFNOProgress West Hospital DIFFERENTIAL METHOD BLDAutoNOMS [facility] HospitalF EOSINOPHIL # BLD AUTO0.3NINFNOProgress West Hospital LYMPHOCYTES # BLD AUTO1.21NOSalem Memorial District HospitalF MONOCYTES # BLD AUTO 0.55NINFNOSalem Memorial District HospitalF NEUTROPHILS # BLD AUTO7.06NOIN HealthcareCCF NRBC # BLD AUTO<0.01NINFChildren's Mercy NorthlandF NRBC/100 WBC BLD-RTO0/100 WBCFreeman Orthopaedics & Sports Medicine CCF PLATELET # BLD [id number]'s Mercy NorthlandF PMV BLD AUTO10.1 fL9.0 - 12.7 fL [facility]'s Mercy NorthlandF WBC # BLD AUTO9.3[facility] MedicineEosinophils/100 WBC (Bld)3.2 %[facility] Sports MedicineErythrocyte distribution width (RBC) [Ratio]15.4 %High11.5 - 15.0 %[facility] Sports MedicineHematocrit (Bld) [Volume fraction]42.4 %39.0 - 51.0 %[facility] Sports MedicineHemoglobin (Bld) [Mass/Vol]12.5 g/dLLow13.0 - 17.0 g/dLResearch Medical Center GRANULOCYTES # BLD AUTO0.07NIRegionalOne Health Center GRANULOCYTES/LEUK NFR BLD AUTO0.8 %[facility] MedicineInterpretation and review of laboratory resultsAbnormal [facility] Sports MedicineLymphocytes/100 WBC (Bld)13 %[facility] CenterH (RBC) [Entitic mass]27.2 pg26.0 - 34.0 pgMissouri Rehabilitation CenterHC (RBC) [Mass/Vol]29.5 g/dLLow30.5 - 36.0 g/dLMissouri Rehabilitation CenterV (RBC) [Entitic vol]92.4 fL80.0 - 100.0 fLFreeman Orthopaedics & Sports MedicineMonocytes/100 WBC (Bld)5.9 %[facility] Sports MedicineNeutrophils/100 WBC (Bld) 75.9 %[facility] & Sports MedicineRBC (Bld) [#/Vol]4.59 10*6/uL4.20 - 6.00 m/uLHEBER VALLEY MEDICAL CENTER HealthcareSpecimen Type: BLOOD SPECIMEN [facility] Address: [address] [id number] Original Ordering Provider: HOLLY JENKINSFreeman Orthopaedics & Sports MedicineEddy [id number] ([place]) Office ([place]) MAK GARCES ([id number]) 1955 M Date Time Provider Department 08/12/24 9:40 AM MARIO SIDDIQUI During your visit today, we recorded the following information about you: Temperature Pulse Respiration Blood pressure 97.9 degrees 81/minute 16/minute 139/91 Weight Height 119.7 kg 1.88 m Mario Siddiqui MD 08/12/2024 8:50 PM Signed PATIENT NAME: Mak Garces DATE: 08/12/2024 PRIMARY CARE PHYSICIAN: Dr. Romulo Clark OTHER PHYSICIANS: Dr. Gabo Fuchs ([facility] Ophthalmology) Portions of this encounter note have been copied from the note from 05/20/2024 and has been updated where appropriate, and reflect my current medical decision making from today. 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 Surgery was 06/23/2024. Since that his pain, headaches, and associate symptoms have resolved. 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 Status post WLE and SLNBx at on 07/03/2024. Lymph nodes were negative. He underwent reexcision on 08/07/2024 for positive margins, and ultimate surgical margins were clear. The patient has recovered from surgery well. Per plastic surgery adjuvant therapy not indicated. The patient has had no other significant medical changes. He remains on Hydrea 500 mg twice daily and is tolerating it well. MEDICATIONS: acetaminophen (TYLENOL) 325 mg tablet Take 2 tablets by mouth every 6 hours as needed (Mild Pain (1-3)). ondansetron (ZOFRAN) 8 mg tablet Take 1 tablet by mouth every 8 hours as needed for nausea/vomiting. levocetirizine 5 mg tablet Take 5 mg by mouth. hydroxyurea (HYDREA) 500 mg capsule Take 1 capsule by mouth two times a day. BABY ASPIRIN ORAL Take by mouth. fluoride, sodium, (DENTA-GEL) 1.1 % gel use to BRUSH TEETH 3 to 5 MINUTES once daily ascorbic acid, vitamin C, (VITAMIN C) 500 mg tablet Take 1,000 mg by mouth once daily. levothyroxine (SYNTHROID) 150 mcg tablet Take 1 tablet by mouth once daily. fluticasone (FLONASE) 50 mcg/actuation nasal spray tamsulosin (FLOMAX) 0.4 mg Take 0.4 mg by mouth daily at bedtime. erythromycin (ROMYCIN) 5 mg/gram (0.5 %) ophthalmic ointment Use 1 application in the right eye four times daily. Apply less than a pea-sized amount per application cefTAZidime ophthlamic solution 5% (50 mg/mL) (IP-CPD) Use 1 Drop in the right eye two times a day. erythromycin (ROMYCIN) 5 mg/gram (0.5 %) ophthalmic ointment apply into right eye at bedtime polyvinyl alcohol-povidone (REFRESH) 1.4-0.6 % ophthalmic solution 1 drop into affected eye as needed carboxymethylcellulose (REFRESH TEARS) 0.5 % drop Use 1 Drop in both eyes as needed. 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 PAST SURGICAL HISTORY: PAST SURGICAL HISTORY Procedure Laterality Date CHOLECYSTECTOMY 2011 EPILATION OF TRICHIASIS, FORCEPS Right 04/18/2023 EYE SURGERY HX Left 01/17/2018 CONJUNCTIVOPLASTY, RECONSTRUCTION CUL-DE-SAC W/ BUCCAL GRAFT (Left EYE SURGERY HX Right Eye removal EYE SURGERY PROCEDURE Right 10/10/2017 REVISION OR REPAIR OPERATIVE WOUND EYE ANTERIOR SEGMENT MAJOR OR MINOR KERATOPLASTY PENTRG EXCEPT APHAKIA/PSEUDOPHAKIA Right 09/12/2017 PK (Penetrating Keratoplasty) OCULAR SURFACE RECONSTRUCTION AMNIOTIC MEMBRANE PAST SURGICAL HISTORY OF Right EVISCERATION OF OCULAR CONTENTS W/ IMPLANT - Right with Marta Salazar MD on 06/23/2024 PAST SURGICAL HISTORY OF Melanoma removed from left side of neck PAST SURGICAL HISTORY OF Skin cancer removed REFRACTIVE SURGERY OD (RIGHT EYE) 08/01/2023 REVIEW OF SYSTEMS: General: No weight loss, malaise or fevers. HEENT: Negative for frequent or significant headaches. No changes in hearing, no nose bleeds or other nasal problems. Positive right eye issues. Respiratory: Negative for cough, wheezing or shortness of breath. Cardiovascular: Negative for chest pain, (more content not included)...Normal [facility] Memorial HospitalComprehensive metabolic 2000 panelon 01-57-8564Ubhxxad [Mass/Vol]4.1 g/dLNormal3.9-4.9CProtestant Hospital on above:Order Comment: Specimen Type: BLOOD SPECIMENOrdering Facility: [facility] Address:[address] [place], [place] [address]Performed By: #### 90838- 8 ####[facility] LABCLIA [id number] [place], [place] [address]NEP [Catalytic activity/Vol]104 U/OXmsoqo60-428LnvotryjhJ.W. [facility] on above:Order Comment: Specimen Type: BLOOD SPECIMENOrdering Facility: [facility] Address:[address] [place], [place] [address]Performed By: #### 21317-3 ####[facility] LABCLIA [id number] [place], [place] [address]QBW [Catalytic activity/Vol]12 U/KLxmzig45-04HgybvzymxJ.W. [facility] on above:Order Comment: Specimen Type: BLOOD SPECIMENOrdering Facility: [facility] Address:[address] [place], [place] [address]Performed By: #### 03347- 8 ####[facility] LABCLIA [id number] [place], [place] [address]Iyfra gap [Moles/Vol]12 mmol/LNormal8-15[facility] on above:Order Comment: Specimen Type: BLOOD SPECIMENOrdering Facility: [facility] Address:[address] [place], [place] [address]Performed By: #### 28587-5 ####[facility] LABCLIA [id number] ABY NORIEGACONCEPCIONBAN[facility] [place] [address]PYF [Catalytic activity/Vol]19 U/NBnpekt38-67GsjdqycexJ.W. [facility] on above:Order Comment: Specimen Type: BLOOD SPECIMENOrdering Facility: [facility] Address:[address] [place], [place] [address]Performed By: #### 53049-7 ####[facility] LABCLIA [id number] [place] [address] Bilirubin [Mass/Vol]0.4 mg/dLNormal0.2-1.3CProtestant Hospital on above:Order Comment: Specimen Type: BLOOD SPECIMENOrdering Facility: [facility] Address:[address] [place], [place] [address]Performed By: #### 36678-2 ####[facility] LABCLIA [id number] LIAM LEANNCONCEPCIONBR[place], [place] [address]Uqfcjpf [Mass/Vol]9.2 mg/dLNormal8.5-10.2CProtestant Hospital on above:Order Comment: Specimen Type: BLOOD SPECIMENOrdering Facility: [facility] Address:[address] [place], [place] [address]Performed By: #### 03957-7 ####[facility] LABCLIA [id number] [place], [place] [address]Gkpixtjx [Moles/Vol]98 mmol/DXfecki50-761IhycwbamfJ.W. [facility] on above:Order Comment: Specimen Type: BLOOD SPECIMENOrdering Facility: [facility] Address:[address] [place], [place] [address]Performed By: #### 31443- 8 ####[facility] LABCLIA [id number] [place], [place] [address]HM8 [Moles/Vol]25 mmol/XVrxahy99-13EmueoqbcvJ.W. [facility] on above:Order Comment: Specimen Type: BLOOD SPECIMENOrdering Facility: [facility] Address:[address] [place], [place] [address]Performed By: #### 90139-1 ####[facility] LABIA [id number] [place], [place] [address]Gvjqngizmm [Mass/Vol]0.90 mg/dL Normal0.73-1.22[facility] on above:Order Comment: Specimen Type: BLOOD SPECIMENOrdering Facility: [facility] Address:[address] [place], [place] [address]Performed By: #### 91861-6 ####[facility] [id number] [place], [place] [address]Djoqodidik and Glomerular filtration rate.predicted panel (S/P/Bld)94 mL/min/1.73m???Normal>=60[facility] on above:Order Comment: Specimen Type: BLOOD SPECIMENOrdering Facility: [facility] Address:[address] [place], [place] [address]Result Comment: Estimated Glomerular Filtration Rate (eGFR) is calculated using the 2020 CKD-EPI creatinine equation. This equation utilizes serum creatinine, sex, and age as parameters. The creatinine assay has traceable calibration to isotope dilution- mass spectrometry. Refer to KDIGO guidelines for clinical interpretation. In patients with unstable renal function, e.g. those with acute kidney injury, the eGFR may not accurately reflect actual GFR.Performed By: #### 77049-0 ####[facility] LABIA [id number] [place], [place] [address]Ufdyqja [Mass/Vol]146 mg/gRJwbq08-45KijrhtwccJ.W. [facility] on above:Order Comment: Specimen Type: BLOOD SPECIMENOrdering Facility: [facility] Address:[address], [place], [place] [address] Comment: The [place] Diabetes Association (ADA) provides guidance for cutoff values for fasting glucose and random glucose. The ADA defines fasting as no caloric intake for at least 8 hours. Fasting plasma glucose results between 100 to 125 mg/dL indicate increased risk for diabetes (prediab etes). Fasting plasma glucose results greater than or equal to 126 mg/dL meet the criteria for diagnosis of diabetes. In the absence of unequivocal hyperglycemia, results should be confirmed by repeat testing. In a patient with classic symptoms of hyperglycemia or hyperglycemic crisis, random plasma glucose results greater than or equal to 200 mg/dL meet the criteria for diagnosis of diabetes. Reference: Standards of Medical Care in Diabetes 2016, [place] [employer] Association. Diabetes Care. 2016.39(Suppl 1).Performed By: #### 22419-4 ####[facility] LABCLIA [id number] [place], [place] [address]Eizrfzuye [Moles/Vol]3.8 mmol/LNormal3.7-5.1CProtestant Hospital on above:Order Comment: Specimen Type: BLOOD SPECIMENOrdering Facility: [facility] Address:[address] [place], [place] [address]Performed By: #### 28978-6 ####[facility] LABCLIA [id number] [place], [place] [address]Brvdrso [Mass/Vol]7.1 g/dLNormal6.3-8.0[facility] on above:Order Comment: Specimen Type: BLOOD SPECIMENOrdering Facility: [facility] Address:[address] [place], [place] [address]Performed By: #### 29746- 8 ####[facility] LABCLIA [id number] [place], [place] [address]Cyefwy [Moles/Vol]135 mmol/AWzd279-758ZnlxwhkyqJ.W. [facility] on above:Order Comment: Specimen Type: BLOOD SPECIMENOrdering Facility: [facility] Address:[address] [place], [place] [address]Performed By: #### 36638-4 ####[facility] LABCLIA [id number] [place], [place] [address]Njlh nitrogen [Mass/Vol]6 mg/dL Low9-24Wilson Memorial HospitalComtrinity health liv[facility] on above:Order Comment: Specimen Type: BLOOD SPECIMENOrdering Facility: [facility] Address:[address], [place] [address]Cbsgtavlj By: #### 65885-6 ####[facility] LABCLIA [id number] [place], [place] [address]GEDNVKLBB OF TRICHIASIS, FORCEPSon 54-66-9538Ohccnsbwk ClinicDERMPATH LAB- DERMATOPATHOLOGYon 99-98-8307ECCXTKDY LAB- DERMATOPATHOLOGYPathology report.total SEE COMMENT Dermatopathology Case: [id number] Authorizing Provider: Mariluz Rubin MD Collected: 08/07/2024 1037 Ordering Location: [facility] Received: 08/08/2024 0842 [facility] [place] Pathologist: Karan Paniagua MD Specimen: SKIN EXCISION, Excision of left neck short stitch superior, long stitch anterior Path report.final diagnosis SEE COMMENT SKIN, EXCISION OF LEFT NECK SHORT STITCH SUPERIOR, LONG STITCH ANTERIOR: BASAL CELL CARCINOMA, SUPERFICIAL GROWTH PATTERN, APPROXIMATELY 1 MM FROM THE PERIPHERAL MARGIN, DERMAL NEVUS AND CHANGES CONSISTENT WITH PREVIOUS PROCEDURE, PRESENT ON THE DEEP AND PERIPHERAL MARGIN, WITHOUT RESIDUAL ATYPICAL MELANOCYTIC NEOPLASM SEEN, SEE NOTE. Note: The basal cell carcinoma is present in Slide A4 and is approximately 1 mm from the mid posterior margin (at 3 o'clock, if the short stitch superior is 12 o'clock and the long stitch anterior is considered 9 o'clock.) Electronically signed out by Karan Paniagua MD at 1444 EDT Laboratory comment By the signature on this report, the individual or group listed as making the Final Interpretation/Diagnosis certifies that they have reviewed this case. Path report.relevant Hx SEE COMMENT Pre-Op Diagnosis: Malignant melanoma of neck (Multi) Post-Op Diagnosis: Malignant melanoma of neck (Multi) Admission Diagnosis: Malignant melanoma of neck (Multi) C43.4 Specimen ID: [id number], [id number] Specimen Source: SKIN EXCISION Site/Location: Excision of left neck short stitch superior, long stitch anterior Collection Comments: Path report.microscopic observation Microscopic examination reveals a specimen that extends into the subcutaneous fat. An area with horizontally oriented collagen and vertically oriented vessels is present. There is dense solar elastosis. There is polyfilament suture with a foreign body giant cell reaction and there are nested and single benign appearing melanocytes in the dermis. There are nests of basaloid cells in Slide A4 connected to the undersurface of the epidermis. A SOX-10 stain reveals a normal number of melanocytes in this area. All control slides stain appropriately. LAB AP ASR DISCLAIMER One or more of the reagents used to perform assays on this specimen MAY have contained components considered to be analyte specific reagents (ASR's). ASR's have not been cleared or approved by the U.S. Food and Drug Administration. These assays were developed and their performance characteristics determined by the Department of Pathology at [facility]. The FDA does not require this test to go through premarket FDA review. This test is used for clinical purposes. It should not be regarded as investigational or for research. This laboratory is certified under the Clinical Laboratory Improvement Amendments (CLIA) as qualified to perform high complexity clinical laboratory testing. The assays were performed with appropriate positive and negative controls which stained appropriately. Path report.gross observation SEE COMMENT A: Received in formalin is a au and brown, ellipsoid piece of skin measuring 34 x 10 x 3 mm. It was received with a short stitch designated by the surgeon as superior , referred to here as 12 o'clock for the purpose of gross description. It was received with a second long stitch designated by the surgeon as anterior , referred to here as 9 o'clock for the purpose of gross description. The specimen was inked blue on the 12-6 o'clock margin and inked black on the 6- 12 o'clock margin, then serially sectioned and embedded in toto in five blocks. Block 1 is at 12 o'clock, block 3 is at 9 and 3 o'clock, and block 5 is at 6 o'clock. The tips are embedded in blocks 1 and 5. The specimen was grossed by Arabella Evangelista.[facility] Hospital at SouthwoodsComment on above:Order Comment: Pre-op diagnosis: Malignant melanoma of neck (Multi) [C43.4]No Panel Informationon [id number] of biopsy: tangential Informed consent: discussed and consent obtained Informed consent comment: The risks and benefits of the biopsy were discussed. Risks include but are not limited to bleeding, infection, scarring, pain, and nerve damage. An opportunity to ask questions prior to the procedure was permitted and all questions were answered. Patient was prepped and draped in usual sterile fashion: area cleansed with alcohol. Anesthesia: the lesion was anesthetized in a standard fashion Anesthetic: 1% lidocaine w/ epinephrine 1-100,000 buffered w/ 8.4% NaHCO3 Instrument used: DermaBlade Hemostasis achieved with: electrodesiccation Outcome: patient tolerated procedure well Outcome comment: The specimen was placed in a prelabeled formalin container to be sent for pathology Post-procedure details: sterile dressing applied and wound care instructions given Post-procedure details comment: Emphasized need to contact clinic for any signs of infection, uncontrollable bleeding, or complications. Dressing type: bandage Additional details: Photo taken Amount of lidocaine used: 0.[address] [facility] DERMPATH LAB- DERMATOPATHOLOGYon [id number] LAB- DERMATOPATHOLOGY Pathology report.total SEE COMMENT Dermatopathology Case: [id number] Authorizing Provider: Mariluz Rubin MD Collected: 07/03/2024 0804 Ordering Location: [facility] Received: 07/04/2024 0448 [facility] [place] Pathologist: Karan Paniagua MD Specimens: A) - SKIN WIDE EXCISION, LEFT NECK MELANOMA INCISION SHORT STITCH SUPERIOR LONG STITCH ANTERIOR B) - SKIN WIDE EXCISION, SENTINEL LYMPH NODE #1 295 C) - SKIN WIDE EXCISION, SENTINEL LYMPH NODE #2 COUNT 135 D) - SKIN WIDE EXCISION, ADDITIONAL LYMPH NODE E) - SKIN WIDE EXCISION, ADDITIONAL INFERIOR SKIN Path report.final diagnosis SEE COMMENT A. SKIN WIDE EXCISION, LEFT NECK MELANOMA INCISION SHORT STITCH SUPERIOR LONG STITCH ANTERIOR, WIDEEXCISION: ATYPICAL MELANOCYTIC HYPERPLASIA AND CHANGES CONSISTENT WITH PREVIOUS PROCEDURE, SEE NOTE. Note: Microscopic examination reveals a specimen that extends into the subcutaneous fat. An area with horizontally oriented collagen and vertically oriented vessels is present. In slide A3 there is an area of basal layer vacuolization with occasional nests of melanocytes along the dermal-epidermal j unction. There is moderate to dense solar elastosis and there are superficial melanophages. A SOX-10 stain reveals an increase in single melanocytes that are non-continuous along the dermal-epidermaljunction in this area that are PRAME positive in approximately fifty percent. All control slides stain appropriately. The area of atypical melanocytic hyperplasia is from the area of dermal fibrosis by uninvolved epidermis and dermis. An area of melanoma in situ at a distance of approximately 1.6 mm from the long stitch anterior 9 o'clock margin cannot be excluded. B. NODE, SENTINEL LYMPH NODE #1 295, WIDE EXCISION: BENIGN LYMPH NODE. C. NODE, SENTINEL LYMPH NODE #2 COUNT 135, WIDE EXCISION: BENIGN LYMPH NODE. D. NODE, ADDITIONAL LYMPH NODE, WIDE EXCISION: BENIGN LYMPH NODE. E. SKIN, ADDITIONAL INFERIOR SKIN, WIDE EXCISION: ACTINIC DAMAGE WITH A POSSIBLE LYMPH NODE, SEE NOTE. Note: Microscopic examination reveals a specimen that extends into the subcutaneous fat. There is dense solar elastosis and there is basal layer melanin pigmentation in areas. There is a collection of lymphocytes in the subcutaneous fat that appears to be fairly well circumscribed. No melanoma is se en on a SOX-10, Melan-A or HMB45 stain amongst the inflammation. Electronically signed out by Karan Paniagua MD Laboratory comment By the signature on this report, the individual or group listed as making the Final Interpretation/Diagnosis certifies that they have reviewed this case. Path report.relevant Hx SEE COMMENT Pre-Op Diagnosis: Malignant melanoma of neck (Multi) Post-Op Diagnosis: Malignant melanoma of neck (Multi) Admission Diagnosis: Malignant melanoma of neck (Multi) C43.4 Specimen ID: [id number], [id number] Specimen Source: SKIN WIDE EXCISION Site/Location: LEFT NECK MELANOMA INCISION SHORT STITCH SUPERIOR LONG STITCH ANTERIOR Collection Comments: Specimen ID: [id number], [id number] Specimen Source: SKIN WIDE EXCISION Site/Location: SENTINEL LYMPH NODE #1 295 Collection Comments: Specimen ID: [id number], [id number] Specimen Source: SKIN WIDE EXCISION Site/Location: SENTINEL LYMPH NODE #2 COUNT 135 Collection Comments: Specimen ID: [id number], [id number] Specimen Source: SKIN WIDE EXCISION Site/Location: ADDITIONAL LYMPH NODE Collection Comments: Path report.microscopic observation SEE COMMENT A. Microscopic examination reveals a specimen that extends into the subcutaneous fat. An area with horizontally oriented collagen and vertically oriented vessels is present. B. Microscopic examination reveals a lymph node. No melanoma is seen on H&E. Melan A, Sox10, and HMB45 stains are unremarkable. All control slides stain appropriately. C. Microscopic examination reveals a lymph node. No melanoma is seen on H&E. Melan A, Sox10, and HMB45 stains are unremarkable. All control slides stain appropriately. D. Microscopic examination reveals a lymph node. There are islands of epithelium in the lymph node that stain with antibodies against AE1/AE3 and SOX-10. Melan- A and HMB45 stains were reviewed. LAB AP ASR DISCLAIMER One or more of the reagents used to perform assays on this specimen MAY have contained components considered to be analyte specific reagents (ASR's). ASR's have not been cleared or approved by the U.S. Food and Drug Administration. These assays were developed and their performance characteristics determined by the Department of Pathology at [facility]. The FDA does not require this test to go through premarket FDA review. This test is used for clinical purposes. It should not be regarded as investigational or for research. This laboratory is certified under the Clinical Laboratory Improvement Amendments (CLIA) as q (more content not included)...Normal [facility] HospitalComment on above:Order Comment: Pre-op diagnosis: Malignant melanoma of neck (Multi) [C43.4]No Panel Informationon [id number] Luke's Hospital ABO/RH GROUP TESTon [id number] ABO TYPEONOMS [facility] RH TYPE PositiveFreeman Orthopaedics & Sports MedicineFor patient undergoing Aortic, Liver, Cardiac, or Thoracic Surgery OR If instructed by Blood Bank OR If patient hemoglobin is less than 7.5g/dl and no active type and screen. Original Ordering Provider: LORI CULLEN/VERIFY ABORHon [id number] group Nom (Rajiv)ONNorwalk Memorial HospitalComment on above:Order Comment: For patient undergoing Aortic, Liver, Cardiac, or Thoracic Surgery OR If instructed by Blood Bank OR If patient hemoglobin is less than 7.5g/dl and no active type and screen. Performed By: #### VERAB #### CINTHYA Eisenberg ([id number]) [facility] ([facility]) [address] [place], [place] [address]D Ag Ql (Bld)PositiveNoSumma Health Akron CampusComment on above:Order Comment: For patient undergoing Aortic, Liver, Cardiac, or Thoracic Surgery OR If instructed by Blood Bank OR If patient hemoglobin is less than 7.5g/dl and no active type and screen. Performed By: #### VERAB #### CINTHYA Eisenberg ([id number]) [facility] ([facility]) [address] [place], [place] [address]Ydtmiw ABO/Rh Group Test (VERAB)on [id number] group Nom (Bld)[facility] ToledoD Ag Ql (Bld)PositiveTriHealth Bethesda North HospitalNM LYMPHOSCINTIGRAMon [id number] LYMPHOSCINTIGRAMInterpreted By: Nely Michael, STUDY: NM LYMPHOSCINTIGRAM; 07/02/2024 4:22 pm INDICATION: Signs/Symptoms:lymphosentigraphy for SLNB left neck melanoma. COMPARISON: None. ACCESSION NUMBER(S): [id number] ORDERING CLINICIAN: MARILUZ RUBIN TECHNIQUE: DIVISION OF NUCLEAR MEDICINE RADIONUCLIDE SENTINEL LYMPH NODE LYMPHOSCINTIGRAPHY A total of 2.3 millicuries of Tc-99m tilmanocept (Lymphoseek) was injected intradermally in a circumferential pattern surrounding the patient's melanoma biopsy site of the left neck. Sequential images were then acquired. FINDINGS: Activity representing a sentinel lymph node was identified in the left neck, corresponding to a left cervical level II node seen on SPECT CT. Another tiny left cervical level II node inferior to the sentinel node, likely representing a draining node IMPRESSION: 1. A left cervical level II node, likely representing a sentinel node. Another tiny left cervical level II node inferior to the sentinel node, likely representing a draining node. 2. Images saved into PACS for review. I personally reviewed the images/study.. This study was interpreted at [facility], [place], [place]. MACRO: None Signed by: Nely Michael 07/02/2024 6:28 PM Dictation workstation: [id number] Medical CenterNM Lymphatic vessels Views W radionuclide intra lymphaticon . A left cervical level II node, likely representing a sentinel node. Another tiny left cervical level II node inferior to the sentinel node, likely representing a draining node. 2. Images saved into PACS for review. I personally reviewed the images/study.. This study was interpreted at [place], [place]. MACRO: None Signed by: Nely Michael 07/02/2024 6:28 PM Dictation workstation: [id number] By: Nely Michael, STUDY: NM LYMPHOSCINTIGRAM; 07/02/2024 4:22 pm INDICATION: Signs/Symptoms:lymphosentigraphy for SLNB left neck melanoma. COMPARISON: None. ACCESSION NUMBER(S): [id number] ORDERING CLINICIAN: MARILUZ RUBIN TECHNIQUE: DIVISION OF NUCLEAR MEDICINE RADIONUCLIDE SENTINEL LYMPH NODE LYMPHOSCINTIGRAPHY A total of 2.3 millicuries of Tc-99m tilmanocept (Lymphoseek) was injected intradermally in a circumferential pattern surrounding the patient's melanoma biopsy site of the left neck. Sequential images were then acquired. FINDINGS: Activity representing a sentinel lymph node was identified in the left neck, corresponding to a left cervical level II node seen on SPECT CT. Another tiny left cervical level II node inferior to the sentinel node, likely representing a draining node [facility] Nely Wood MD - 07/02/2024 Interpreted By: Nely Michael, STUDY: NM LYMPHOSCINTIGRAM; 07/02/2024 4:22 pm INDICATION: Signs/Symptoms:lymphosentigraphy for SLNB left neck melanoma. COMPARISON: None. ACCESSION NUMBER(S): [id number] ORDERING CLINICIAN: MARILUZ RUBIN TECHNIQUE: DIVISION OF NUCLEAR MEDICINE RADIONUCLIDE SENTINEL LYMPH NODE LYMPHOSCINTIGRAPHY A total of 2.3 millicuries of Tc-99m tilmanocept (Lymphoseek) was injected intradermally in a circumferential pattern surrounding the patient's melanoma biopsy site of the left neck. Sequential images were then acquired. FINDINGS: Activity representing a sentinel lymph node was identified in the left neck, corresponding to a left cervical level II node seen on SPECT CT. Another tiny left cervical level II node inferior to the sentinel node, likely representing a draining node IMPRESSION: 1. A left cervical level II node, likely representing a sentinel node. Another tiny left cervical level II node inferior to the sentinel node, likely representing a draining node. 2. Images saved into PACS for review. I personally reviewed the images/study.. This study was interpreted at [place], [place]. MACRO: None Signed by: Nely Michael 07/02/2024 6:28 PM Dictation workstation: [id number] [facility] Work Phone: Source Facility: [facility] Interpreted By: Nely Michael, STUDY: NM LYMPHOSCINTIGRAM; 07/02/2024 4:22 pm INDICATION: Signs/Symptoms:lymphosentigraphy for SLNB left neck melanoma. COMPARISON: None. ACCESSION NUMBER(S): [id number] ORDERING CLINICIAN: MARILUZ RUBIN TECHNIQUE: DIVISION OF NUCLEAR MEDICINE RADIONUCLIDE SENTINEL LYMPH NODE LYMPHOSCINTIGRAPHY A total of 2.3 millicuries of Tc-99m tilmanocept (Lymphoseek) was injected intradermally in a circumferential pattern surrounding the patient's melanoma biopsy site of the left neck. Sequential images were then acquired. FINDINGS: Activity representing a sentinel lymph node was identified in the left neck, corresponding to a left cervical level II node seen on SPECT CT. Another tiny left cervical level II node inferior to the sentinel node, likely representing a draining node IMPRESSION: 1. A left cervical level II node, likely representing a sentinel node. Another tiny left cervical level II node inferior to the sentinel node, likely representing a draining node. 2. Images saved into PACS for review. I personally reviewed the images/study.. This study was interpreted at [place], [place]. MACRO: None Signed by: Nely Michael 07/02/2024 6:28 PM Dictation workstation: [id number], Radiologist, - 07/02/2024 Source Facility: [facility] Interpreted By: Nely Michael, STUDY: NM LYMPHOSCINTIGRAM; 07/02/2024 4:22 pm INDICATION: Signs/Symptoms:lymphosentigraphy for SLNB left neck melanoma. COMPARISON: None. ACCESSION NUMBER(S): [id number] ORDERING CLINICIAN: MARILUZ RUBIN TECHNIQUE: DIVISION OF NUCLEAR MEDICINE RADIONUCLIDE SENTINEL LYMPH NODE LYMPHOSCINTIGRAPHY A total of 2.3 millicuries of Tc-99m tilmanocept (Lymphoseek) was injected intradermally in a circumferential pattern surrounding the patient's melanoma biopsy site of the left neck. Sequential images were then acquired. FINDINGS: Activity representing a sentinel lymph node was identified in the left neck, corresponding to a left cervical level II node seen on SPECT CT. Another tiny left cervical level II node inferior to the sentinel node, likely representing a draining node IMPRESSION: 1. A left cervical level II node, likely representing a sentinel node. Another tiny left cervical level II node inferior to the sentinel node, likely representing a draining node. 2. Images saved into PACS for review. I personally reviewed the images/study.. This study was interpreted at [place], [place]. MACRO: None Signed by: Nely Michael 07/02/2024 6:28 PM Dictation workstation: [id number] [facility] & Sports MedicineRadiology Study observation (narrative)[facility] Work Phone: Radiology Study observation (narrative)[facility] NM Lymphatic vessels Views W radionuclide intra lymphaticOrdered By: Nely Michael on [id number] Medical [facility] Work Phone: NM Lymphatic vessels Views W radionuclide intra lymphaticOrdered By: Radiologist Radiology on [id number] Orthopaedics & Sports Medicine Work Phone: cbc W Auto Differential panel (Bld)on 07-01-2024 Basophils (Bld) [#/Vol]0.16 10*3/uLHigh<0.11CProtestant Hospital on above:Order Comment: Specimen Type: BLOOD SPECIMENOrdering Facility: [facility] Address:[address] [place] [address]Acapwwdqx By: #### 86914-0 ####SAUK RAPIDSCOAST UNIVERSITY OF [facility] LABCLIA [id number] [place], [place] [address]Dmzyxksga/100 WBC (Bld)1.4 %NormalJ.W. Ruby [facility] on above:Order Comment: Specimen Type: BLOOD SPECIMENOrdering Facility: [facility] Address:[address] [place], [place] [address]Performed By: #### 87861-0 ####[facility] LABIA [id number] [place], [place] [address]Iuxiltrwlxde cell count method Nom (Bld)AutoNormalClevelCleveland Clinic Marymount Hospital on above:Order Comment: Specimen Type: BLOOD SPECIMENOrdering Facility: [facility] Address:[address] [place], [place] [address]Performed By: #### 18501-1 ####[facility] LABCLIA [id number] [place], [place] [address]Xcffzevmtxq (Bld) [#/Vol]0.35 10*3/uLNormal<0.46[facility] on above:Order Comment: Specimen Type: BLOOD SPECIMENOrdering Facility: [facility] Address:[address] [place], [place] [address]Performed By: #### 14121-2 ####[facility] LABIA [id number] [place], [place] [address]Jpknqsnpagj/100 WBC (Bld)3.1 %NormalJ.W. Ruby Memorial Hospital on above:Order Comment: Specimen Type: BLOOD SPECIMENOrdering Facility: [facility] Address:[address] [place], [place] [address]Performed By: #### 03565-7 ####[facility] LABIA [id number] [place], [place] [address]Kqlbvllgpzm distribution width (RBC) [Ratio]15.0 %Normal 11.5-15.0[facility] on above:Order Comment: Specimen Type: BLOOD SPECIMENOrdering Facility: [facility] Address:[address] [place], [place] [address]Performed By: #### 04409-1 ####[facility] LABIA [id number] [place] [address] Hematocrit (Bld) [Volume fraction]41.5 %Nkikoq20.0-51.0[facility] on above:Order Comment: Specimen Type: BLOOD SPECIMENOrdering Facility: [facility] Address:[address] [place], [place] [address]Performed By: #### 68290-7 ####[facility] LABIA [id number] [place], [place] [address]Bagjduppgq (Bld) [Mass/Vol]12.8 g/dLLow13.0-17.0[facility] on above:Order Comment: Specimen Type: BLOOD SPECIMENOrdering Facility: [facility] Address:[address] [place], [place] [address]Performed By: #### 62292-0 ####[facility] LABIA [id number] [place], [place] [address]Kpstdgqm granulocytes (Bld) [#/Vol]0.06 10*3/uLNormal <0.10[facility] on above:Order Comment: Specimen Type: BLOOD SPECIMENOrdering Facility: [facility] Address:[address] [place], [place] [address]Performed By: #### 25753-8 ####[facility] LABIA [id number] [place], [place] [address]Mmwhrgdb granulocytes/100 WBC (Bld)0.5 %NormalJ.W. Ruby [facility] Hospital on above: Order Comment: Specimen Type: BLOOD SPECIMENOrdering Facility: [facility] Address:[address] [place], [place] [address]Performed By: #### 45341- 8 ####[facility] LABIA [id number] [place], [place] [address]Tilxxveqmpd (Bld) [#/Vol]1.08 10*3/uLNormal1.00-4.00 [facility] on above:Order Comment: Specimen Type: BLOOD SPECIMENOrdering Facility: [facility] Address:[address] [place], [place] [address]Performed By: #### 65606-0 ####[facility] LABIA [id number] [place], [place] [address]Cepamejqsrs/100 WBC (Bld)9.7 %NormalJ.W. Ruby [facility] Hospital on above:Order Comment: Specimen Type: BLOOD SPECIMENOrdering Facility: [facility] Address:[address] [place], [place] [address]Performed By: #### 72684-9 ####[facility] LABCLIA [id number] [place], [place] [address]MQY (RBC) [Entitic mass]28.1 ocLuzraf49.0-34.0[facility] on above:Order Comment: Specimen Type: BLOOD SPECIMENOrdering Facility: [facility] Address:[address] [place], [place] [address]Performed By: #### 72411-2 ####[facility] LABIA [id number] [place], [place] [address]JVZY (RBC) [Mass/Vol]30.8 g/rGGmtxxg34.5-36.0[facility] on above: Order Comment: Specimen Type: BLOOD SPECIMENOrdering Facility: [facility] Address:[address] [place], [place] [address]Performed By: #### 59625- 8 ####[facility] LABCLIA [id number] [place], [place] [address]AZB (RBC) [Entitic vol]91.2 vXPgcccl17.0-100.0[facility] on above:Order Comment: Specimen Type: BLOOD SPECIMENOrdering Facility: [facility] Address:[address] [place], [place] [address]Performed By: #### 51489-5 ####[facility] LABIA [id number] [place], [place] [address]Kxsgvlkia (Bld) [#/Vol]0.72 10*3/uLNormal<0.87[facility] on above:Order Comment: Specimen Type: BLOOD SPECIMENOrdering Facility: [facility] Address:[address] [place], [place] [address]Performed By: #### 91226- 8 ####[facility] LABCLIA [id number] [place], [place] [address]Ylkqrblsv/100 WBC (Bld)6.5 %NormalJ.W. Ruby [facility] Hospital on above:Order Comment: Specimen Type: BLOOD SPECIMENOrdering Facility: [facility] Address:[address] [place], [place] [address]Performed By: #### 38531-0 ####[facility] LABCLIA [id number] [place], [place] [address]Tpnzfmbtjmy (Bld) [#/Vol]8.76 10*3/uLHigh1.45-7.50[facility] on above:Order Comment: Specimen Type: BLOOD SPECIMENOrdering Facility: [facility] Address:[address] [place], [place] [address]Performed By: #### 49932-5 ####[facility] LABCLIA [id number] [place], [place] [address]Yqiospcczyu/100 WBC (Bld)78.8 %NormalJ.W. [facility] Hospital on above:Order Comment: Specimen Type: BLOOD SPECIMENOrdering Facility: [facility] Address:[address] [place], [place] [address]Performed By: #### 22042-6 ####[facility] LABIA [id number] [place], [place] [address]Tyrjzrrcy RBC (Bld) [#/Vol] 10*3/uLNormal<0.01[facility] on above:Order Comment: Specimen Type: BLOOD SPECIMENOrdering Facility: [facility] Address:[address] [place], [place] [address]Performed By: #### 06937-1 ####[facility] LABCLIA [id number] [place], [place] [address]Fulotpbeh RBC/100 WBC (Bld) [Ratio]0.0 /100 WBCNormal [facility] on above:Order Comment: Specimen Type: BLOOD SPECIMENOrdering Facility: [facility] Address:[address] [place], [place] [address]Performed By: #### 29748-9 ####[facility] LABCLIA [id number] [place], [place] [address]Xzrmixwr mean volume (Bld) [Entitic vol]10.1 fLNormal9.0-12.7CProtestant Hospital on above:Order Comment: Specimen Type: BLOOD SPECIMENOrdering Facility: [facility] Address:[address] [place] [address] Performed By: #### 07603-3 ####[facility] LABCLIA [id number] [place], [place] [address]Vrhzjdhgk (Bld) [#/Vol]404 10*3/kEEmin982-092PspzaetvzJ.W. [facility] Hospital on above:Order Comment: Specimen Type: BLOOD SPECIMENOrdering Facility: [facility] Address:[address] [place], [place] [address]Performed By: #### 65810-7 ####[facility] LABCLIA [id number] [place], [place] [address]JAD (Bld) [#/Vol]4.55 10*6/uLNormal4.20-6.00[facility] on above:Order Comment: Specimen Type: BLOOD SPECIMENOrdering Facility: [facility] Address:[address] [place], [place] [address]Performed By: #### 81011-7 ####[facility] LABCLIA [id number] [place], [place] [address]IKW (Bld) [#/Vol]11.13 10*3/uLHigh3.70-11.00[facility] HospitalComtrinity health [facility] on above: Order Comment: Specimen Type: BLOOD SPECIMENOrdering Facility: [facility] Address:[address], [place] [address]Kcmfyxmze By: #### 90872- 8 ####[facility] LABCLIA [id number] [place], [place] [address]JWL CBC W AUTO DIFF BLDon 60-12-6561Nqcovepct/100 WBC (Bld)1.4 %[facility] BASOPHILS # BLD AUTO0.16HighNITennova Healthcare DIFFERENTIAL METHOD BLDAutoNOMShriners Hospitals for ChildrenF EOSINOPHIL # BLD AUTO0.35NITennova Healthcare LYMPHOCYTES # BLD AUTO1.08[facility] MONOCYTES # BLD AUTO 0.72NITennova Healthcare NEUTROPHILS # BLD AUTO8.76[facility] NRBC # BLD AUTO<0.01NITennova Healthcare NRBC/100 WBC BLD-RTO0/100 WBCResearch Psychiatric Center PLATELET # BLD GBTN064YntnGAARAdvanced Surgical Hospital PMV BLD AUTO10.1 fL 9.0 - 12.7 fLResearch Psychiatric Center WBC # BLD AUTO11.13[facility] Eosinophils/100 WBC (Bld)3.1 %[facility] Sports MedicineErythrocyte distribution width (RBC) [Ratio]15 %11.5 - 15.0 %[facility] Sports MedicineHematocrit (Bld) [Volume fraction] 41.5 %39.0 - 51.0 %[facility] Sports MedicineHemoglobin (Bld) [Mass/Vol]12.8 g/dLLow13.0 - 17.0 g/dLMercy McCune-Brooks Hospital GRANULOCYTES # BLD AUTO0.06NIRegionalOne Health Center GRANULOCYTES/LEUK NFR BLD AUTO0.5 %[facility] MedicineInterpretation and review of laboratory resultsAbnormalFreeman Orthopaedics & Sports MedicineLymphocytes/100 WBC (Bld)9.7 %[facility] CenterH (RBC) [Entitic mass]28.1 pg26.0 - 34.0 pgMissouri Rehabilitation CenterHC (RBC) [Mass/Vol]30.8 g/dL30.5 - 36.0 g/dLFreeman Orthopaedics & Sports MedicineMCV (RBC) [Entitic vol]91.2 fL 80.0 - 100.0 fLFreeman Orthopaedics & Sports MedicineMonocytes/100 WBC (Bld)6.5 %[facility] Neutrophils/100 WBC (Bld)78.8 %[facility] HealthcareRBC (Bld) [#/Vol]4.55 10*6/uL4.20 - 6.00 m/uLHEBER VALLEY MEDICAL CENTER HealthcareSpecimen Type: BLOOD SPECIMEN [facility] Address: [address] [place] [address] Original Ordering Provider: HOLLY TERRYMadison Medical CenterComprehensive metabolic 2000 panelon 95-05-0882Kjoqzrj [Mass/Vol]4.1 g/dLNormal3.9-4.9 [facility] on above:Order Comment: Specimen Type: BLOOD SPECIMENOrdering Facility: [facility] Address:[address] [place], [place] [address]Performed By: #### 96195-2 ####[facility] LABCLIA [id number] [place], [place] [address]WEY [Catalytic activity/Vol]105 U/SLbqiwv91-924YudqnnvdrJ.W. [facility] on above:Order Comment: Specimen Type: BLOOD SPECIMENOrdering Facility: [facility] Address:[address] [place], [place] [address]Performed By: #### 21601- 8 ####[facility] LABCLIA [id number] [place], [place] [address]ZYN [Catalytic activity/Vol]10 U/RTomhqr80-04SewzmroudJ.W. [facility] on above:Order Comment: Specimen Type: BLOOD SPECIMENOrdering Facility: [facility] Address:[address] [place], [place] [address]Performed By: #### 65254-8 ####[facility] LABCLIA [id number] [place], [place] [address]Resqo gap [Moles/Vol]12 mmol/LNormal8-15[facility] ClevelandComment on above:Order Comment: Specimen Type: BLOOD SPECIMENOrdering Facility: [facility] Address:[address] [place], [place] [address]Performed By: #### 97591- 8 ####[facility] LABCLIA [id number] [facility] [place], [place] [address]BKK [Catalytic activity/Vol]15 U/BCryiqj06-97YerdetcswJ.W. [facility] on above:Order Comment: Specimen Type: BLOOD SPECIMENOrdering Facility: [facility] Address:[address] [place], [place] [address]Performed By: #### 21572-3 ####[facility] LABCLIA [id number] [place], [place] [address]Jqrubqmdj [Mass/Vol]0.6 mg/dLNormal0.2-1.3CProtestant Hospital on above:Order Comment: Specimen Type: BLOOD SPECIMENOrdering Facility: [facility] Address:[address] [place], [place] [address]Performed By: #### 03375- 8 ####[facility] LABCLIA [id number] [facility] [place], [place] [address]Fycbjnm [Mass/Vol]9.4 mg/dLNormal8.5-10.2CProtestant Hospital on above:Order Comment: Specimen Type: BLOOD SPECIMENOrdering Facility: [facility] Address:[address] [place], [place] [address]Performed By: #### 09661-4 ####[facility] LABCLIA [id number] [place], [place] [address]Bvhjdbrn [Moles/Vol]99 mmol/L Okmslf48-657QnzkrzqmxJ.W. [facility] on above:Order Comment: Specimen Type: BLOOD SPECIMENOrdering Facility: [facility] Address:[address] [place], [place] [address]Performed By: #### 41198-7 ####[facility] LABCLIA [id number] [place] [address] CO2 [Moles/Vol]26 mmol/TDzlmgt03-65AxvkcihrdJ.W. [facility] on above: Order Comment: Specimen Type: BLOOD SPECIMENOrdering Facility: [facility] Address:[address] [place], [place] [address]Performed By: #### 41331- 8 ####[facility] LABIA [id number] [facility] [place], [place] [address]Qqiidelfjy [Mass/Vol]0.96 mg/dLNormal0.73-1.22[facility] on above:Order Comment: Specimen Type: BLOOD SPECIMENOrdering Facility: [facility] Address:[address] [place], [place] [address]Performed By: #### 94148-0 ####[facility] [id number] [place], [place] [address]Bgiyonublh and Glomerular filtration rate.predicted panel (S/P/Bld)87 mL/min/1.73m???Normal>=60 [facility] on above:Order Comment: Specimen Type: BLOOD SPECIMENOrdering Facility: [facility] Address:[address] [place], [place] [address]Result Comment: Estimated Glomerular Filtration Rate (eGFR) is calculated using the 2020 CKD-EPI creatinine equation. This equation utilizes serum creatinine, sex, and age as parameters. The creatinine assay has traceable calibration to isotope dilution-mass spectrometry. Refer to KDIGO guidelines for clinical interpretation. In patients with unstable renal function, e.g. those with acute kidney injury, the eGFR may not accurately reflect actual GFR.Performed By: #### 65514-0 ####[facility] [id number] [facility]RASCONCEPCIONBANNER [facility] [place], [place] [address]Vpcgurs [Mass/Vol]110 mg/rPOzci70-72JoqrqprrgJ.[facility]. [facility] on above:Order Comment: Specimen Type: BLOOD SPECIMENOrdering Facility: [facility] Address:[address], [place], [place] [address]Xluqfi Comment: The [place] Diabetes Association (ADA) provides guidance for cutoff values for fast ing glucose and random glucose. The ADA defines fasting as no caloric intake for at least 8 hours. Fasting plasma glucose results between 100 to 125 mg/dL indicate increased risk for diabetes (prediabetes). Fasting plasma glucose results greater than or equal to 126 mg/dL meet the criteria for diagnosis of diabetes. In the absence of unequivocal hyperglycemia, results should be confirmed by repeat testing. In a patient with classic symptoms of hyperglycemia or hyperglycemic crisis, random plasma glucose results greater than or equal to 200 mg/dL meet the criteria for diagnosis of diabetes. Reference: Standards of Medical Care in Diabetes 2016, [place] Diabetes Association. Diabetes Care. 2016.39(Suppl 1).Performed By: #### 75187-8 ####[facility] LABCLIA [id number] [place], [place] [address]Vdycyyqsf [Moles/Vol]3.7 mmol/LNormal3.7-5.1CProtestant Hospital on above:Order Comment: Specimen Type: BLOOD SPECIMENOrdering Facility: [facility] Address:[address] [place], [place] [address]Performed By: #### 99048-1 ####[facility] LABCLIA [id number] [place], [place] [address]Ebgozkd [Mass/Vol]7.2 g/dLNormal6.3-8.0[facility] on above:Order Comment: Specimen Type: BLOOD SPECIMENOrdering Facility: [facility] Address:[address] [place], [place] [address]Performed By: #### 01676- 8 ####[facility] LABCLIA [id number] [place], [place] [address]Wjmwyl [Moles/Vol]137 mmol/EYbctpo508-080LgcyhotwlJ.W. [facility] on above:Order Comment: Specimen Type: BLOOD SPECIMENOrdering Facility: [facility] Address:[address] [place], [place] [address]Performed By: #### 62798-3 ####[facility] LABCLIA [id number] [place], [place] [address]Lubf nitrogen [Mass/Vol]11 mg/dLNormal9-24[facility] HospitalComtrinity health [facility] on above:Order Comment: Specimen Type: BLOOD SPECIMENOrdering Facility: [facility] Address:[address] INSTITUTEHEATHER [place], [place] [address]Mlnypzqpm By: #### 41675-3 ####[facility] LABCLIA [id number] [place], [place] [address]QNK CBC WITH AUTO DIFFon 86-54-4088Kenxqlguhga distribution width (RBC) [Ratio]14.9 %High11.5 - 14.5 %NOM HealthcareHematocrit (Bld) [Volume fraction]41.8 %41.0 - 52.0 %[facility] HealthcareHemoglobin (Bld) [Mass/Vol]12.8 g/dLLow13.5 - 17.5 g/dLHEBER VALLEY MEDICAL CENTER HealthcareInterpretation and review of laboratory resultsAbnormalMissouri Rehabilitation CenterH (RBC) [Entitic mass]27.4 pg26.0 - 34.0 pgMissouri Rehabilitation CenterHC (RBC) [Mass/Vol]30.6 g/dLLow32.0 - 36.0 g/dLMissouri Rehabilitation CenterV (RBC) [Entitic vol]90 fL80 - 100 fLSaint Luke's Hospital NUCLEATED RBC 0NOUniversity Health Lakewood Medical Center DYU612DdvzBRWDSaint Luke's Hospital RBC4.67NOUniversity Health Lakewood Medical Center WBC12.8 HighFreeman Orthopaedics & Sports MedicineOriginal Ordering Provider: [facility] POSTPROC EVALon 20-22-8744GGVP POSTPROC EVALHNO ID: [id number] Author: SADA SUH MD Service: ? 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 Anticipated Disposition: phase 2 then home. Neurological Status: aware and responsive. Pulmonary Status: breathing comfortably on room air Airway Control: returned to baseline unsupported. Cardiovascular Status: stable. Pain Management: clinically adequate Postoperative Hydration: acceptable. Intraoperative Events: no significant anesthesia events Post Operative Nausea/Vomiting Status: no significant post operative nausea or vomiting Recommendation: continue current plan of care. Anesthesia Observations No Documentation SIGNATURE: Sada Suh MD PATIENT NAME: Mak Garces DATE: June 26, 2024 TIME: 4:24 PM CSN: [id number] [facility] metabolic 2000 panelon 90-01-7178Uhlnx gap [Moles/Vol]15 mmol/SXcnqzb04-95GbyugfkqmwOhioHealth Arthur G.H. Bing, MD, Cancer CenterComment on above:Performed By: #### 18797-0 #### CINTHYA Eisenberg ([id number]) [facility] ([facility]) [address] [place], [place] [address]Drthpsy [Mass/Vol]9.2 mg/dLNormal8.6-10.6[facility] Valley HospitalComment on above:Performed By: #### 25825-1 #### CINTHYA Eisenberg ([id number]) [facility] ([facility]) [address] [place], [place] [address]Bsiqgohr [Moles/Vol]94 mmol/QVdz62-321JknmkxhdtoOhioHealth Arthur G.H. Bing, MD, Cancer CenterComment on above:Performed By: #### 38106-5 #### CINTHYA Eisenberg ([id number]) [facility] ([facility]) [address] [place], [place] [address]KA7 [Moles/Vol]27 mmol/VFnfsqt65-96GhvdsxdonbBlanchard Valley Health System Blanchard Valley HospitalComment on above:Performed By: #### 22389-4 #### CINTHYA Eisenberg ([id number]) [facility] ([facility]) [address] [place], [place] [address]Afruxfbvvd [Mass/Vol]0.86 mg/dLNormal0.50-1.30UnOhioHealth Arthur G.H. Bing, MD, Cancer CenterComment on above:Performed By: #### 50534-2 #### CINTHYA Eisenberg ([id number]) [facility] ([facility]) [address] [place], [place] [address]MVD/1.73 sq M.predicted MDRD (S/P/Bld) [Vol rate/Area] mL/min/{1.73_m2}Normal>60UnOhioHealth Arthur G.H. Bing, MD, Cancer CenterComment on above:Result Comment: Calculations of estimated GFR are performed using the 2020 CKD-EPI Study Refit equation without the race variable for the IDMS-Traceable creatinine methods. https://jasn.asnjournals.org/content//ASN.6667918174Vsdbymixl By: #### 92994-9 #### CINTHYA Eisenberg ([id number]) [facility] ([facility]) [address] [place], [place] [address]Ftmpflr [Mass/Vol]93 mg/kRXcltff88-25TlqfyxxbhhOhioHealth Arthur G.H. Bing, MD, Cancer CenterComment on above:Performed By: #### 79860-9 #### CINTHYA Eisenberg ([id number]) [facility] ([facility]) [address] [place], [place] [address]Pquelvkqk [Moles/Vol]4.1 mmol/LNormal3.5-5.3UnOhioHealth Arthur G.H. Bing, MD, Cancer CenterComment on above:Performed By: #### 44117-3 #### CINTHYA Eisenberg ([id number]) [facility] ([facility]) [address] [place], [place] [address]Ouiker [Moles/Vol]132 mmol/LEla925-415GrbrsilyobBlanchard Valley Health System Blanchard Valley HospitalComment on above:Performed By: #### 32774-6 #### CINTHYA Eisenberg ([id number]) [facility] ([facility]) [address] [place] [address]Flnz nitrogen [Mass/Vol]9 mg/dLNormal6-23[facility] Blanchard Valley HospitalComment on above:Performed By: #### 68022-4 #### CINTHYA Eisenberg ([id number]) [facility] ([facility]) [address] [place] [address]Ldvuo type and Indirect antibody screen panel (Bld)on 62-27-0464KRJ group Nom (Bld)ONormalBlanchard Valley Health System Blanchard Valley HospitalComment on above:Performed By: #### 36016-0 #### CINTHYA Eisenberg ([id number]) [facility] ([facility]) [address] [place] [address]Bkbvf group antibody screen QlNegativeNoSumma Health Akron CampusComment on above:Performed By: #### 70583-5 #### CINTHYA Eisenberg ([id number]) [facility]) [address] [place] [address] Ag Ql (Bld)PositiveNoSumma Health Akron CampusComment on above:Result Comment: 2nd ABO test required. Order and Collect VERABPerformed By: #### 87117-2 #### CINTHYA Eisenberg ([id number]) [facility]) [address] [place] [address]JLS panel Auto (Bld)on 74-76-2052Sscnzkhshdf distribution width (RBC) [Ratio]14.9 %High11.5-14.5[facility] Blanchard Valley HospitalComment on above:Performed By: #### 10746-8 #### CINTHYA Eisenberg ([id number]) [facility] ([facility]) [address] [place] [address]Jlivbucvns (Bld) [Volume fraction]41.8 %Frznbl95.0-52.0 [facility] Blanchard Valley HospitalComment on above:Performed By: #### 12857-9 #### CINTHYA Eisenberg (51147) [facility] ([facility]) [address] [place], [place] [address]Biowemfgxc (Bld) [Mass/Vol]12.8 g/dLLow13.5-17.5UnOhioHealth Arthur G.H. Bing, MD, Cancer CenterComment on above:Performed By: #### 08222-4 #### CINTHYA Eisenberg ([id number]) [facility] ([facility]) [address] [place], [place] [address]QRE (RBC) [Entitic mass]27.4 pkIecjxy41.0-34.0UnOhioHealth Arthur G.H. Bing, MD, Cancer CenterComment on above:Performed By: #### 91819-9 #### CINTHYA Eisenberg ([id number]) [facility] ([facility]) [address] [place] [address]VRPK (RBC) [Mass/Vol]30.6 g/dLLow32.0-36.0UnOhioHealth Arthur G.H. Bing, MD, Cancer CenterComment on above:Performed By: #### 16980-8 #### CINTHYA Eisenberg (06659) [facility] ([facility]) [address] [place] [address]ZGO (RBC) [Entitic vol]90 eAHeifxm64-677GymnxjimbvOhioHealth Arthur G.H. Bing, MD, Cancer CenterComment on above:Performed By: #### 99562-2 #### CINTHYA Eisenberg ([id number]) [facility] ([facility]) [address] [place] [address]Pamzeaoql RBC/100 WBC (Bld) [Ratio]0.0 /100 WBCsNormal0.0-0.0 [facility] Blanchard Valley HospitalComment on above:Performed By: #### 70237-6 #### CINTHYA Eisenberg (53661) [facility] ([facility]) [address] [place], [place] [address]Skndzbfpn (Bld) [#/Vol]501 x10*3/fLQzsb214-547BoftmptgebRegency Hospital Company Medical CenterComment on above:Performed By: #### 53398-0 #### CINTHYA Eisenberg ([id number]) [facility] ([facility]) [address] [place] [address]OFI (Bld) [#/Vol]4.67 x10*6/uLNormal4.50-5.90[facility] Bl[facility] Valley HospitalComment on above:Performed By: #### 85788-8 #### CINTHYA Eisenberg ([id number]) [facility] ([facility]) [address] [place] [address]BQJ (Bld) [#/Vol]12.8 x10*3/uLHigh4.4-11.3[facility] Valley HospitalComment on above:Performed By: #### 13928-4 #### CINTHYA Eisenberg ([id number]) [facility] ([facility]) [address] [place] [address]Lljumyjlsbupla aureus.methicillin resistant isolateon 77-62-8826GFOT isol Org specific cx Ql (Nose)Test: Staphylococcus aureus/MRSA colonization, Culture Specimen Source: Nares/Axilla/Groin Specimen Type: Swab Specimen Date: 06/26/2024 1057 Result Date: 06/27/2024 1404 Result Status: Final result Abnormal: Yes Resulting Lab: [facility] [address] [place] [address] CULTURE Isolated: Methicillin Resistant Staphylococcus aureus (MRSA) (Abnormal)Abnormal [facility] Blanchard Valley HospitalComment on above:Performed By: #### 89102-3 #### CINTHYA Eisenberg ([id number]) [facility] ([facility]) [address] [place] [address] BX REPORTon [id number] CASE REPORTNOIN HealthcareComment on above:Surgical Pathology Report Case: [id number] Authorizing Provider: Nohelia Shook MD Collected: 06/23/2024 03:52 PM Ordering Location: Admitting Received: 06/23/2024 04:57 PM Pathologist: Maritza Mcnally MD Specimen: Eye, Intraocular Contents, Right, Evisceration, with corneal button, in formalin [facility] CLINICAL HISTORYpainful blind eye, rightNOMS HealthcareCCF DIAGNOSIS COMMENT NOMS HealthcareComment on above:There is patchy chronic inflammation with small lymphocytes and plasma cells in iris, ciliary body.Blood clot/hemorrhage has focal fibrin/early organization. PAS (A1) highlights disrupted Descemet me mbrane. History of conjunctival lymphoma is noted and immunohistochemical stains will be reported in an addendum. [facility] FINAL DIAGNOSISNOMS HealthcareComment on above:Eye, right intraocular contents, evisceration - Cornea with marked scarring and thinning with peripheral vascularization and chronic inflammation: - Recent intraocular hemorrhage; - Disorganized retina with mild gliosis; - See comment. at 1122 EST [facility] FINAL PERFORMING LABNOMS HealthcareComment on above:Diagnostic interpretation performed at: [facility], [address] [place] [address], [facility] [address]# [id number] Sow Farm Manager: Jona Domínguez MD [facility] GROSS DESCRIPTIONNOMS HealthcareComment on above:A. Eye, Intraocular Contents, Right, Evisceration Received in formalin labeled eye, right, intraocular contents are multiple red-brown intraocular contents and fragments aggregating to 4.8 x 2.0 x 0.7 cm. There is corneal tissue present, measuring1.5 x 1.3 x 1.2 cm. The lens is not identified. Head Irrigator sections are submitted as follows: A1: Cornea A2: Intraocular contents Z 06/23/24 5:25 PM Gross examination performed at [facility], [address] [place] [address] Specimen Type: TISSUE SPECIMEN [facility]ing Facility[facility] Address: [address] [place] [address] Original Ordering Provider: NOHELIA Ruffin [id number] (OPHTMN) MAK GARCES ([id number]) 1955 M Date Time Provider Department 06/24/24 MARTA SALAZAR During your visit today, we recorded the following information about you: Ruben Nieves 06/24/2024 8:46 AM Addendum LV: 05/20/24 06/23/24 - Surgery FV: 07/01/24 (, Norma) Spoke with Norma this morning. She said she hadn't been contacted by anyone after surgery regarding the outcome of the surgery etc. She would appreciate a call from someone to go over details. Patient reports a restful night but, is seeing floaters OS, which weren't there before surgery. Reported to Dr. Fuchs who said he would see him anytime this week. Marta Salazar MD filed at 05/20/2024 12:16 PM Status: Signed Leaking right eye starting on the way here. Eye was glued shut four days ago. No pain today. 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 Bryant S/p Penetrating keratoplasty in a phakic right eye using a 8.5 mm host and 9.0 mm donor trephination 09/12/2017 - Dr. Fuchs S/p Revision of operative wound, anterior segment right eye, Multilayered sutured amniotic membrane graft, Right eye, Temporary lateral tarsorhhaphy, Right eye - 10/10/2017 - Dr. Fuchs S/p LLL hpg/rotation 01/17/2018 - JDP S/p LLL hpg/rotation 10/10/2018 - JDP s/p right orbitotomy for supraorbital nerve anastamoses with axogen donor graft for corneal neurotization, Right conjunctivoplasty, Right temporary tarsorrhaphy, Right permanent medial tarsorrhaphy, Right lower eyelid debulking hard palate graft [facility] 06/10/20 S/p Penetrating keratoplasty in a phakic right eye using a 8.0 mm host and 8.5 mm donor trephination, Complex cataract extraction requiring mechanical dilation with iris hooks and capsular staining with trypan blue, right eye, Lysis of posterior iris synechiae, right eye, Anterior vitrectomy, right eye, Temporary tarsorrhaphy, right eye 05/23/21 - Dr. Fuchs S/p eyelid surgeries with Dr. Cool and Dr. Nolen Saw Dr. Nolen 05/14/24 05/16/[address]. Fuchs: pt felt gush of fluid and pain, attempted to glue, referred for evisceration B scan 08/31/22: Date of Procedure 08/31/2022. Data Miner Information DENIA Galo ROUB 08/31/2022 10:58 AM . Notes B scan OD: 1) Interval resolution in the serous choroidal detachments 360-degrees. 2) Interval decrease in the density of the vitreous opacities. Today, opacities are mild through the lid. Exam: Light perception right eye - MD verified Right upper lid ptosis with trichiasis/Right upper lid entropion 2+ injection right eye No julieta kun positive area but thinned cornea inferior/centrally <0.1 cm , no glue seen Tenderness right eye (difficult to lift eyelid due to sensitivity) Right lateral permanent tarsorrhaphy in place Neovascularization right cornea Trichiasis Right upper lid Patient would like to try and save his right eye Would defer decision to patient and Dr. Fuchs Patient is light perception right eye Discussed if removal of eye likely would recc evisceration with implant Discussed blind painful eye If can get pain under control can hold off on surgery If cannot get pain under control consider enucleation or evisceration, likely evisceration with implant Discussed post op course including significant pain for first 24-48 hrs, need to stay on top of the pain Also discussed patch x 1 week, return to clinic then remove patch In between eyelids will then look pink (like inside of mouth) and no eye. Then after 6-8 wks so swelling is reduced may go to truck and transport mechanic to get prosthesis made Patient could also see truck and transport mechanic prior to any surgery to get an idea of what it would look like (discusssed process is usually multiple days) While waiting for prosthesis some patients get a black patch or cover the side of the glasses Will likely look like a closed eyelid, usually wear conformer until prosthesis made Discussed risk of extrusion of implant (early or late), inability to retain prosthesis, prosthesis will not move completely like other eye (usually reduced movement), ptosis will likely stay after surgery (may be able to be addressed in future but may not be covered by insurance), discussed small risk of sympathetic ophthalmia (inflammation of fellow eye) after evisceration (patient has had previous eye surgeries in past) Patient understands May still have pain post operatively, but usually pain improved Possible plan: Right eye evisceration with implant Right medial and lateral temporary tarsorrhaphy Right medial permanent tarsorrhaphy Ge (more content not included)...[facility] PRE-OPon [id number] PRE-OPHNO ID: [id number] Author: SADA SUH MD Service: ? Author Type: Anesthesiologist Type: Anesthesia Preprocedure Evaluation Filed: 06/23/2024 13:48 Note Text: PEDIATRIC ANESTHESIOLOGY DAY OF SURGERY NOTE : 1955 Procedure(s) (LRB): EVISCERATION OF OCULAR CONTENTS W/ IMPLANT (Right) REVISION OF EYELID (TARSORRHAPHY) (Right) Surgeon(s): Marta Salazar MD Engelmann, Alexander, MD Regueiro, MD Romulo Estimated body mass index is 34.65 kg/m? as calculated from the following: Height as of 05/20/24: 188 cm (6' 2.02 ). Weight as of 06/10/24: 122.5 kg (270 lb). Most recent hematocrit and potassium results: Hematocrit 41.5 05/20/2024 Potassium 3.7 05/20/2024 Relevant Problems ANESTHESIA (+) Sleep apnea, obstructive CARDIO (+) Hypertension ENDO (+) Hypothyroid PULMONARY (+) Sleep apnea, obstructive Other (+) Polycythemia vera (HCC) Physical Exam Airway: Patient intubated: No Tracheostomy tube present: No Mallampati scale: III. TM distance is normal. Mouth opening is normal. He has no dysmorphic features. Neck: Normal range of motion. Cardiovascular: Normal rate and regular rhythm. Pulmonary/Chest: Effort normal. Breath sounds clear to auscultation. Musculoskeletal: Cervical back: Normal range of motion. Anesthesia Plan ASA 3 general intravenous induction Anesthetic plan and risks discussed with patient. Use of blood products discussed with patient. Patient / Surrogate agrees to blood products: yes Vitals Value Taken Time BP 185/98 06/23/24 1210 Pulse 77 06/23/24 1210 Resp 14 06/23/24 1210 Temp 36.5 ?C (97.7 ?F) 06/23/24 1210 SpO2 98 % 06/23/24 1210 I have interviewed and examined the patient. I have reviewed the medical record and/or the pre-anesthesia evaluation, pertinent labs, and test results. This contains updated information obtained within 48 hours of Surgery/Procedure. SIGNATURE: Sada Suh MD PATIENT NAME: Mak Garces DATE: June 23, 2024 TIME: 1:47 PM CSN: [id number] OP NOTon [id number] OP NOTHNO ID: [id number] Author: NOHELIA SHOOK MD Service: Ophthalmology Author Type: Fellow Type: Brief Op Note Filed: 06/23/2024 15:57 Note Text: BRIEF OPERATIVE / PROCEDURE NOTE LOG ID: [id number] SURGERY/PROCEDURE DATE: 06/23/2024 INCISION/PROCEDURE START TIME: 2:35 PM INCISION CLOSE/PROCEDURE END TIME: 3:46 PM SURGEON(S)/PROCEDURALIST(S) AND STRAW BOSS(S): Surgeons and Role: * Marta Salazar MD - Primary * Romulo Blackwood MD - Resident - Assisting * Nohelia Shook MD - Fellow No Additional Staff SURGERY/PROCEDURE(S): Right eye evisceration with implant 2. Right eye severing tarsorrhaphy 3. Right medial and lateral temporary tarsorrhaphy ANESTHESIA: General FINDINGS: permanent medial and lateral tarsorrhaphies right eye, upper and lower eyelid scarring, significant forniceal shortening particularly inferiorly, opacified cornea with significant neovascularization, small appearing corneal diameter ESTIMATED BLOOD LOSS: <20 mls SPECIMENS: 1. Right corneal button and ocular contents in formalin sent for fixed pathology COMPLICATIONS: None Small conformer placed in right eye socket CLOSURE TECHNIQUE: Primary PRE-OP/PRE-PROCEDURE DIAGNOSIS: 1. Blind painful right eye POST-OP/POST-PROCEDURE DIAGNOSIS: Same as Preop Patient was accompanied to the next level of care by a licensed practitioner from the surgical team pending completion of this brief op note (or operative note) SIGNATURE: Nohelia Shook MD PATIENT NAME: Mak Garces DATE: June 23, 2024 TIME: 3:54 PMNormalSamaritan HospitalPNon [id number] (OPHTMN) MAK GARCES ([id number]) 1955 M Date Time Provider Department 06/23/24 GABO FUCHS [facility] During your visit today, we recorded the following information about you: Ruben Nieves 06/23/2024 8:47 AM Addendum LV: 06/18/24 FV: Patient's contacted the office reporting patient is in severe pain recommended that they make their way to the ER. They are on their way. Gabo Fuchs MD filed at 06/18/2024 10:07 AM Status: Signed Encounter Diagnosis ICD-10-CM 1. Perforated corneal ulcer of right eye H16.071 2. 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 CORNEAL EPITHELIAL DEBRIDEMENT (CULTURE/DIAGNOSTIC) OD (RIGHT EYE) BACTERIAL CULTURE, EYE FUNGAL CULTURE (NON DERMAL) REPAIR LACERATION;LUZ OF TISSUE GLUE/CORNEA AND/OR SCLERA OD (RIGHT EYE) 3. 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 current perforation of corneal ulcer OD in the setting of existing suprachoroidal hemorrhage causing severe pain some improvement with percocet temporarily patient eager to proceed with evisceration, understands that visual potential is already extremely limited and no clear pathway to improve vision based on severity of comorbidities and existing pathology emergent re-glue in office today to stabilize IOP and decrease pain, Bandage contact lens placed today OD Air Optix Aqua 13.8mm BC = 8.6 Prophylaxis with ceftaz cultures taken from central abrasion, unclear if concurrently infected or 2/2 previously dislodged glue will contact plastics to see if evisceration and be expedited based on severe pain I have confirmed and edited as necessary the relevant ophthalmic history, ROS, and the neuro exam findings as obtained by others. I have seen and examined this patient. I have discussed the case and the management of this patient's care with the Resident/Fellow, if applicable. I also have reviewed and agree with the assessment and plan as stated above and agree with all of its relevant components. MD Ezequiel Hughes Tina-Marie 06/24/2024 8:25 AM Addendum Per KUN Ballesteros with with Dr. Clark's off, ok to hold Aspirin. Allergies As of Date: 06/23/2024 Noted Allergy Reaction LIV INHIBITORS 10/05/2014 3 - Cough Date Reviewed: 06/23/2024 Reviewed by: Janett Alvarez RN - Fully Assessed Reason for Visit: Patient Update [1234] Prescriptions as of 06/24/2024 - erythromycin (ROMYCIN) 5 mg/gram (0.5 %) ophthalmic ointment Use 1 application in the right eye four times daily. Apply less than a pea-sized amount per application - acetaminophen (TYLENOL) 325 mg tablet Take 2 tablets by mouth every 6 hours as needed (Mild Pain (1-3)). - oxyCODONE IR (ROXICODONE) 5 mg immediate release tablet Take 1 tablet by mouth every 8 hours as needed for pain (Moderate Pain (4-6), Severe Pain (7-10)) for up to 10 doses. - ondansetron (ZOFRAN) 8 mg tablet Take 1 tablet by mouth every 8 hours as needed for nausea/vomiting. - oxyCODONE-acetaminophen (PERCOCET) 5-325 mg tablet Take 1 tablet by mouth every 4 hours as needed for up to 7 days. - levocetirizine 5 mg tablet Take 5 mg by mouth. - hydroxyurea (HYDREA) 500 mg capsule Take 1 capsule by mouth two times a day. - cefTAZidime ophthlamic solution 5% (50 mg/mL) (IP-CPD) Use 1 Drop in the right eye two times a day. - BABY ASPIRIN ORAL Take by mouth. - erythromycin (ROMYCIN) 5 mg/gram (0.5 %) ophthalmic ointment apply into right eye at bedtime - fluoride, sodium, (DENTA-GEL) 1.1 % gel use to BRUSH TEETH 3 to 5 MINUTES once daily - polyvinyl alcohol-povidone (REFRESH) 1.4-0.6 % ophthalmic solution 1 drop into affected eye as needed - ascorbic acid, vitamin C, (VITAMIN C) 500 mg tablet Take 1,000 mg by mouth once daily. - levothyroxine (SYNTHROID) 150 mcg tablet Take 1 tablet by mouth once daily. - fluticasone (FLONASE) 50 mcg/actuation nasal spray - tamsulosin (FLOMAX) 0.4 mg Take 0.4 mg by mouth daily at bedtime. - carboxymethylcellulose (REFRESH TEARS) 0.5 % drop Use 1 Drop in both eyes as needed. 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 Radiation dermatitis [L58.9] 07/03/2017 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] 09/11/2017 09/14/2017 S/P PKP (penetrating keratoplasty) [Z94.7] 09/14/2017 Neurotrophic (more content not included)...[facility] HISTORY PHYSICALon [id number] PHYSICALHNO ID: [id number] Author: NOHELIA SHOOK MD Service: Ophthalmology Author Type: Fellow Type: H&P Filed: 06/23/2024 13:46 Note Text: UPDATED HISTORY AND PHYSICAL EXAMINATION SERVICE DATE: 06/23/2024 SERVICE TIME: 1:45 PM PHYSICAL EXAM MUST BE COMPLETED ON ADMISSION The History and Physical (completed in the past 30 days) has been reviewed and the patient has been examined. The contents accurately reflect the patient's condition with the following additions or revisions since the HANDP was completed. Lung sounds clear, no wheezes rales or rhonchi Cardiovascular normal, palpable radial and dorsalis pedis pulses, symmetric and 2+ Abdomen soft and non-tender Tr bilateral lower extremity pitting edema Examination indicates no changes. This HANDP can be found in the Electronic Medical Record dated 06/18/24. SIGNATURE: Nohelia Shook MD PATIENT NAME: Mak Garces DATE: June 23, 2024 TIME: 1:45 PMNormalWilson Memorial HospitalOPERATIVE NOon [id number] NOHNO ID: [id number] Author: MARTA SALAZAR MD Service: Ophthalmology Author Type: Physician Type: Operative Report Filed: 06/24/2024 08:28 Note Text: OPERATIVE/PROCEDURE REPORT LOG ID: [id number] Surgery/Procedure Date: 06/23/2024 Incision/Procedure Start Time: 2:35 PM Incision Close/Procedure End Time: 3:46 PM Surgeon(s)/Proceduralist(s) and Whiskey Proof Reader(s): Surgeons and Role: * Marta Salazar MD - Primary * Romulo Blackwood MD - Resident - Assisting * Nohelia Shook MD - Fellow No Additional Staff Pre-Op/Pre-Procedure Diagnosis: right blind painful eye. H/o multiple procedures right eye with conjunctival scarring/shortening , s/p right lateral permanent tarsorrhaphy Post-Op/Post-Procedure Diagnosis: same right evisceration with 20mm PMMA implant, severing right lateral permanent tarsorrhaphy Procedure(s): right evisceration with implant and suture tarsorrhaphy, severing right lateral permanent tarsorrhaphy . Procedure indication(s): The patient requires right evisceration to improve pain, and tarsorrhaphy to maintain the fornices during the healing period. Patient had several procedures on the right eye and had uncontrollable pain and leakaage and required evisceration. He did have conjunctival scarring and shortening of the fornices especially laterally prior to the procedure. Anesthesia: General Procedure Details: After the risks and benefits of the planned procedure explained to patient, fully informed consent was obtained. The patient was then identified by the attending surgeon, Dr. Marta Salazar and taken to the operating room, where a sign-in and time-out was performed. A retrobulbar block was acheived with 4 mL of 2% lidocaine with 1:100,000 epinephrine containing 50 units per 10 mL of hyaluronidase solution, and 2cc of the same solution was delivered subconjunctivally and to the eyelids. The patient was then prepped and draped in standard sterile fashion. Attention was then turned to right evisceration with 20 mm PMMA implant. A 360- degree conjunctival peritomy was created and an incision was created 2 mm outside of the limbus with a #11 blade and latoya scissors. There was scarring of the conjunctiva and shortening of the fornices especially inferiorly and laterally. The cyclodialysis spatula was used to define the suprachoroidal plane and corneoscleral scissors were used to incise the sclera for 360 degrees. The entire intraocular contents were eviscerated with the evisceration spoons and all RPE elements were removed. The area was copiously irrigated. An H- shaped sclerotomy was created posteriorly and 4 mm anterior relaxing incisions were created in the oblique quadrants. A 20 mm PMMA implant was easily placed posteriorly. The sclera was closed in double-layered fashion with 5-0 Vicryl suture. The tenon layer was closed separately with 5-0 Vicryl suture. The conjunctiva was closed with running 6-0 plain gut suture and dressed with antibiotic ointment. A small conformer was placed. Attention was then turned to right suture tarsorrhaphy medial and lateral. This was carried out in standard fashion with a 6-0 plain gut suture. The wounds were dressed with antibiotic ointment and a pressure patch. A sign out was performed. The patient was extubated without complication and taken to the recovery room in stable condition having tolerated the procedure well. Estimated Blood Loss: <10 cc Specimens: 1. Right cornea and intraocular contents Implantable Devices: Implant Name Type Inv. Item Serial No. Box Blank Machine Operator Helper Lot No. LRB No. Used Action SPHERE KIP 20MM CLEAR PMMA 20MM EYE HARD LIGHTWEIGHT INERT VIRTUALLY - [id number] Implant SPHERE KIP 20MM CLEAR PMMA 20MM EYE HARD LIGHTWEIGHT INERT VIRTUALLY [employer] [id number] Right 1 Implanted CONFORMER KIP SMALL OPHTHALMIC SPHERE STERILE EYE - [id number] Implant CONFORMER KIP SMALL OPHTHALMIC SPHERE STERILE EYE [employer] [id number] Right 1 Wasted CONFORMER KIP SMALL CLEAR PMMA OPHTHALMIC HOLE HARD LIGHTWEIGHT INERT - [id number] Implant CONFORMER KIP SMALL CLEAR PMMA OPHTHALMIC HOLE HARD LIGHTWEIGHT INERT [employer] [id number] Right 1 Implanted Drains: None Complications: None Participation: Dr. Shook performed local infiltration, prep and drape under indirect supervision with staff out of room and immediately available. Dr. Marta Salazar was then scrubbed with assistance for the entire remainder of the case SIGNATURE: Marta Salazar MD PATIENT NAME: Mak Garces DATE: June 24, 2024 TIME: PAGER/CONTACT #:[facility] biopsy report Robi (Tiss)on [id number] 1:[facility] ShawComtr[facility] health [facility] on above:Order Comment: Specimen Type: TISSUE SPECIMENOrdering Facility: [facility] Address: [address] [place], [place] [address]Result Comment: Immunohistochemical stains (A1) to evaluate the inflammation in the limbal region show mixed small CD3 positive T cells and CD20 positive B cells. CD43 positivity and BCL2 positivity are noted. CISH DS Paisley and Lambda shows polytypic staining. The following is Hematopathology section review by Markus Cabral MD., 07/04/24: Histology section shows corneal tissue involved by lymphocytic infiltrate. The lymphoid cells are predominantly small with oval to slightly irregular nuclear contours, condensed chromatin and inconspicuous nucleolus. No sheets of large cells are seen. Immunohistochemical studies are performed and reviewed with appropriate control on block A1 for further diagnostic characterization. CD5 highlight T lymphocytes in similar pattern to CD3. CD10 and BCL6 are negative. Bcl-2 and CD43 highlight T lymphocytes, cyclin D1 is negative, CD21 is negative, CD138 highlights numerous plasma cells, dual ultrasensitive chromogenic in situ hybridization (CISH) for kappa and lambda light chain-encoding mRNA demonstrate polytypic plasma cells and B cells. Ki67 perforation index is low. Overall, there is no morphologic or immunophenotypic support for lymphoma, favor reactive lymphocytic infiltrate. Laboratory Developed Test (LDT) Disclaimer: Performance characteristics of immunohistochemical, immunofluorescent and chromogenic in-situ hybridization tests have been determined by the performing laboratory within [facility]???s [facility] Pathology and Laboratory Medicine Department ([facility], [facility], [facility], [facility], [facility], [facility], or [facility]) in a manner consistent with CLIA requirements. One or more of these tests havenot been cleared or approved by the FDA. [facility] is regulated under CLIA as qualified to perform high-complexity testing. These tests are used for clinical purposes. They should not be regarded as investigational or for research. Positive and negative controls stain appropriately. Addendum electronically signed by Maritza Mcnally MD on 07/04/2024 at 1540 EST Performed By: #### [id number] ####[facility] [id number] [address] ADDENDUM 2:NormalJ.W. [facility] on above:Order Comment: Specimen Type: TISSUE SPECIMENOrdering Facility: [facility] Address: [address] [place], [place] [address]Result Comment: This addendum is to note results of SENDY CISH. SENDY is negative Addendum electronically signed by Markus Cabral MD on 07/04/2024 at 1546 EST Performed By: #### [id number] ####[facility] [id number] [address] CASE REPORTNormalCProtestant Hospital on above:Order Comment: Specimen Type: TISSUE SPECIMENOrdering Facility: [facility] Address: [address] [place], [place] [address]Result Comment: Surgical Pathology Report Case: [id number] Authorizing Provider: Nohelia Shook MD Collected: 06/23/2024 03:52 PM Ordering Location: Admitting Received: 06/23/2024 04:57 PM Pathologist: Maritza Mcnally MD Specimen: Eye, Intraocular Contents, Right, Evisceration, with corneal button, in formalinPerformed By: #### [id number] ####[facility] LABCLIA [id number] [address] [facility] CLINICAL HISTORYpainful blind eye, rightNoSelect Medical [facility] on above:Order Comment: Specimen Type: TISSUE SPECIMENOrdering Facility: [facility] Address: [address] [place] [address] Performed By: #### [id number] ####[facility] LABIA [id number] [address] DIAGNOSIS COMMENTNoSelect Medical [facility] on above:Order Comment: Specimen Type: TISSUE SPECIMENOrdering Facility: [facility] Address: [address] [place], [place] [address]Result Comment: There is patchy chronic inflammation with small lymphocytes and plasma cells in iris, ciliary body. Blood clot/hemorrhage has focal fibrin/early organization. PAS (A1) highlights disrupted Descemet membrane. History of conjunctival lymphoma is noted and immunohistochemical stains will be reported in an addendum.Performed By: #### [id number] ####[facility] LABIA [id number] [address]FINAL DIAGNOSISNoSelect Medical [facility] on above:Order Comment: Specimen Type: TISSUE SPECIMENOrdering Facility: [facility] Address: [address] [place], [place] [address]Result Comment: Eye, right intraocular contents, evisceration - Cornea with marked scarring and thinning with peripheral vascularization and chronic inflammation: - Recent intraocular hemorrhage; - Disorganized retina with mild gliosis; - See comment. at 1122 ESTPerformed By: #### [id number] ####[facility] LABIA [id number] [address]FINAL PERFORMING LAB NormalWilson Memorial HospitalComment on above:Order Comment: Specimen Type: TISSUE SPECIMENOrdering Facility: [facility] Address: [address] [place], [place] [address]Result Comment: Diagnostic interpretation performed at: [facility], [address] [place] [address], [facility] [place] [address] CLIA# [id number] Sow Farm Manager: CARLOS ALBERTO Dickinsonerformed By: #### [id number] ####[facility] LABIA [id number] [place] [address] [place] [facility] [address] [facility] [address] HOSPITALGROSS DESCRIPTIONNormalCUniversity Hospitals Health System Comment on above:Order Comment: Specimen Type: TISSUE SPECIMENOrdering Facility: [facility] Address: [address] [place], [place] [address]Result Comment: A. Eye, Intraocular Contents, Right, Evisceration Received in formalin labeled eye, right, intraocular contents are multiple red-brown intraocular contents and fragments aggregating to 4.8 x 2.0 x 0.7 cm. There is corneal tissue present, measuring1.5 x 1.3 x 1.2 cm. The lens is not identified. Head Irrigator sections are submitted as follows: A1: Cornea A2: Intraocular contents HMZ 06/23/24 5:25 PM Gross examination performed at [facility], [address] [place], [place] [address]Performed By: #### 01978-0 ####[facility] LABIA [id number] [address] [facility] BACTERIA EYE AEROBE CULTon [id number] BACTERIA EYE AEROBE CULT CULTURE, EYE: No growth NOMS HealthcareOriginal Ordering Provider: GABO LOZADA HealthcareCNPNon [id number] (OPHTMN) MAK GARCES ([id number]) 1955 M Date Time Provider Department 06/20/24 NOHELIA SHOOK OPHN During your visit today, we recorded the following information about you: Nohelia Shook MD 06/20/2024 5:34 PM Signed Patient referred by alma Ibanez, for consideration of evisceration of blind painful right eye. Patient requested to have surgery sooner than previously scheduled. Scheduled for 06/26/24. Spoke with patient and spouse via phone. Patient is unable to tolerate constant pain despite treatment with opioid pain medication. He requests that his surgery be done this weekend. He understands the finality of this procedure, stating I have been dealing with this eye for 8 years now, we have tried everything but this is the only option now . Plan: Evisceration of ocular contents with placement of orbital implant and temporary tarsorrhaphy, right eye General anesthesia 90 min Will coordinate for surgery tomorrow, 06/20/24 NPO after midnight Take pain medication and levothyroxine in AM The patient was [facility] a [facility] [facility] An extensive discussion of the risks, benefits, alternatives of the above surgeries was conducted with the patient. The patient understood the risks including, but not limited to: bleeding, infection, scarring, asymmetry, need for future additional surgery, poor cosmesis, worsening dry eyes, orbital hemorrhage, nerve damage, muscle damage, complications of anesthesia including loss of life. Patient verbalizes an understanding. The patient wished to proceed with surgery. Post operative course: 1-2 wks of bruising and swelling. Ice compresses (ie: frozen peas in Ziploc bag with cloth between bag and skin) for15 min every hour for the first 3 days after surgery; then warm compresses as needed for bruising (from post op days 3-7). Can take arnica montana 5 day prior and 5 days post; bromelain as well for swelling Avoid blood thinners including aspirin, Advil, Motrin, Aleve, vitamin E, fish oil at least 2 wks prior to surgery. Antibiotic ointment to eyes and incisions four times a day after surgery for 1 week. No heavy lifting over 15 lbs or any strenuous exercise for 1 wk after surgery. Walking is okay after surgery. 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 - levocetirizine 5 mg tablet Take 5 mg by mouth. - hydroxyurea (HYDREA) 500 mg capsule Take 1 capsule by mouth two times a day. - cefTAZidime ophthlamic solution 5% (50 mg/mL) (IP-CPD) Use 1 Drop in the right eye two times a day. - BABY ASPIRIN ORAL Take by mouth. - erythromycin (ROMYCIN) 5 mg/gram (0.5 %) ophthalmic ointment apply into right eye at bedtime - fluoride, sodium, (DENTA-GEL) 1.1 % gel use to BRUSH TEETH 3 to 5 MINUTES once daily - polyvinyl alcohol-povidone (REFRESH) 1.4-0.6 % ophthalmic solution 1 drop into affected eye as needed - ascorbic acid, vitamin C, (VITAMIN C) 500 mg tablet Take 1,000 mg by mouth once daily. - levothyroxine (SYNTHROID) 150 mcg tablet Take 1 tablet by mouth once daily. - fluticasone (FLONASE) 50 mcg/actuation nasal spray - tamsulosin (FLOMAX) 0.4 mg Take 0.4 mg by mouth daily at bedtime. - carboxymethylcellulose (REFRESH TEARS) 0.5 % drop Use 1 Drop in both eyes as needed. 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] 09/14/2017 Neurotrophic keratoconjunctivitis of right eye *10/09/2017 Exposure keratoconjunctivitis, right [H16.211] 10/09/2017 Rupture of operation wound [T81.31XA] 10/09/2017 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*12/12/2017 Exposure keratoconjunctivitis of right eye [H16*12/12/2017 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 Perforated corneal ulcer of right eye H16.071 2. 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 CORNEAL EPITHELIAL DEBRIDEMENT (CULTURE/DIAGNOSTIC) OD (RIGHT EYE) BACTERIAL CULTURE, EYE FUNGAL CULTURE (NON DERMAL) REPAIR LACERATION;LUZ OF TISSUE GLUE/CORNEA AND/OR SCLERA OD (RIGHT EYE) 3. 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 current perforation of corneal ulcer OD in the setting of existing suprachoroidal hemorrhage causing severe pain some improvement with percocet temporarily patient eager to proceed with evisceration, understands that visual potential is already extremely limited and no clear pathway to improve vision based on severity of comorbidities and existing pathology emergent re-glue in office today to stabilize IOP and decrease pain, Bandage contact lens placed today OD Air Optix Aqua 13.8mm BC = 8.6 Prophylaxis with ceftaz cultures taken from central abrasion, unclear if concurrently infected or 2/2 previously dislodged glue will contact plastics to see if evisceration and be expedited based on severe pain Gabo Fuchs MD 06/20/2024 1:43 PM Signed Mariam, could you please prescribe him percocet 5/325 one pill q4hrs prn pain disp #20? I can't send controlled substances until they enroll my new phone with [employer]. Ruben Nieves 06/20/2024 2:08 PM Signed Spoke with Norma, , reports patient is in total and utter agony due to pain. She feels that he won't make it to . He is laying in bed moaning from constant pain. Reports pain medication isn't helping.Is there anyway he can have an emergency surgery? is crying and so upset. Ruben Nieves 06/20/2024 4:08 PM Signed Gabo Fuchs MD You; Mariam Roy MD; Meri Elizondo MD; Marta Salazar MD; Arti Euceda PA-C; Paula Sarmiento APRN.METER/RELAY CRAFTSMAN; Shaheen Mendosa PA-C; Nohelia Shook MD; Marleen Head10 minutes ago (3:54 PM) I spoke with Mak just now -- evidently Beverly and or Ryder already reached out (thank you!) and if Ryder is willing to do the evisceration tomorrow he would gladly accept it. Thank you all - Gabo Mauricio MD You; Mariam Roy MD; Meri Elizondo MD; Marta Salazar MD; Arti Euceda PA-C; Paula Sarmiento APRN.CNP; Shaheen Mendosa PA-C; Nohelia Shook MD; Marleen Head20 minutes ago (3:44 PM) Thank you for letting us know -- I am not sure whether our plastics service can offer anything sooner (they have definitely been very accommodating to move him up already so I don't know if they can offer anything more). I will call him now to see whether he needs to be admitted for pain control in the interim. Nohelia Shook MD 06/21/2024 10:38 AM Signed Spoke with patient?s spouse regarding plan for urgent evisceration for treatment of blind, painful eye. She is concerned that he is still NPO and his surgery may not happen until later today (currently on schedule for 8 PM), as we must rely on anesthesia staffing to take his case and there are many urgent inpatient cases today. She wonders if Dr. Salazar will be able to do his surgery on Sunday, as we previously discussed yesterday and she would prefer to do this if possible. I assured her that we will do our very best to accommodate the patient this coming Sunday as an add-on case. Will cancel case request for today and plan evisceration for 06/23/24. Ruben Nieves 06/23/2024 9:59 AM Signed You Nohelia Shook MD; Gabo Fuchs MD; Mariam Roy MD; Meri Elizondo MD; Marta Salazar MD; Arti Euceda PA-C; Paula Sarmiento APRN.METER/RELAY CRAFTSMAN; Shaheen Mendosa PA-C; Sahil Head now (9:56 AM) TG Phone encounter was sent in separate communication. Spoke with this morning suggested they make their way into the ER since he was in so much pain. Nohelia Shook MD Goshe, Jeffrey M, MD2 days ago AE That would be great! I told him that we will do our best to get him in on Sunday. Gabo Fuchs MD Engelmann, Alexander, MD2 days ago Oh sorry that is lousy -- thank you for tryin (more content not included)... NormalWilson Memorial HospitalCryotherapy, skin lesionon 86-53-5717RNZZ HealthcareDestruction of lesionon 00-42-0427Zhhrywvthw: simple Destruction method: cryotherapy Informed consent: discussed and consent obtained Informed consent comment: The risks of the procedure were discussed, including, but not limited to risks of scarring, darker or rn house supervisor pigmentary changes, recurrence, infection, and incomplete removal Timeout: patient name, date of , surgical site, and procedure verified Timeout comment: Patient and provider identified site. Site was marked. Photo was taken and shown to patient, patient verified this is the correct site. Lesion destroyed using liquid nitrogen: Yes Region frozen until ice ball extended beyond lesion: Yes Cryotherapy cycles: 2 Lesion length (cm): 1.2 Lesion width (cm): 0.7 Margin per side (cm): 0 Final wound size (cm): 1.2 Outcome: patient tolerated procedure well with no complications Post-procedure details: wound care instructions given Post-procedure details comment: Post-cryotherapy instructions were given verbally and in writing. The office will be contacted if the lesion fails to resolve despite treatment, or if a side effect develops such as abnormal crusting, scabbing, reddness, discharge, or tenderness. Additional details: Previous accession number: [id number] Vidant Beaufort HospitalREPAIR LACERATION;LUZ OF TISSUE GLUE/CORNEA AND/OR SCLERA OD (RIGHT EYE)on 16-31-4009Nrkgmmrzm ClinicAlanine aminotransferase [Enzymatic activity/volume] in Serum or PlasmaOrdered By: Wesley Newell on 85-81-7742MNG [Catalytic activity/Vol]Alanine aminotransferase [Enzymatic activity/volume] in Serum or Plasma7-52[facility] Medical CenterAlbumin [Mass/volume] in Serum or Plasma by Bromocresol green (BCG) dye binding methoOrdered By: Wesley Newell on 18-54-6298Pcblrvr BCG dye [Mass/Vol]Albumin [Mass/volume] in Serum or Plasma by Bromocresol green (BCG) dye binding metho3.5-5.7FWayne HospitalAlkaline phosphatase [Enzymatic activity/volume] in Serum or PlasmaOrdered By: Wesley Newell on 80-60-2492CET [Catalytic activity/Vol]Alkaline phosphatase [Enzymatic activity/volume] in Serum or Bzthxu44-957XzjgkdhueChillicothe Va Medical CenterAspartate aminotransferase [Enzymatic activity/volume] in Serum or PlasmaOrdered By: Wesley Newell on 94-68-0986YIH [Catalytic activity/Vol] Aspartate aminotransferase [Enzymatic activity/volume] in Serum or Mofxcg76-34 [facility] Medical CenterB-Type Natriuretic Peptideon 06-17-2024 Natriuretic peptide B (Bld) [Mass/Vol]102.0 pg/mLHigh5-100The [facility] Physician GroupComment on above:Result Comment: PERFORMED BY: [facility] [address] [place] [address] PATHOLOGIST GROCERY CARRIER DERECK BOOTHE M.D.Performed By: #### HS TROP, HEPATIC, BMP, BNP, PTT, CBC, CK, PT #### [facility] [address] [place] [address] USABacteria Eye Aerobe Culton 30-93-0766Hjzghdnw identified Aer cx Nom (Eye)CULTURE, EYE: No growthNormalCUniversity Hospitals Health SystemComment on above:Performed By: #### 580-1 ####[facility] LABCLIA [id number] [place] [address] [place]#### 609-8 ####[facility] LABCLIA [id number] [place] [address] [place] AMERICABasic Metabolic Panelon 55-91-6292Yrpdt gap [Moles/Vol] 9.7 mmol/LNormal6.0-15.0The [facility] Physician GroupComment on above:Performed By: #### HS TROP, HEPATIC, BMP, BNP, PTT, CBC, CK, PT #### [place] [address] USACalcium [Mass/Vol]9.3 mg/dLNormal8.6-10.3The [facility] Physician GroupComment on above:Performed By: #### HS TROP, HEPATIC, BMP, BNP, PTT, CBC, CK, PT #### [place] [address] USAChloride [Moles/Vol]100 mmol/TXknaza76-640Ijt [facility] Physician GroupComment on above:Performed By: #### HS TROP, HEPATIC, BMP, BNP, PTT, CBC, CK, PT #### [place] [address] USACO2 [Moles/Vol]26.2 mmol/KGwpgvj21.0-31.0The [facility] Physician GroupComment on above:Performed By: #### HS TROP, HEPATIC, BMP, BNP, PTT, CBC, CK, PT #### [place] [address] USACreatinine [Mass/Vol]0.95 mg/dLNormal0.70-1.30The [facility] Physician GroupComment on above:Performed By: #### HS TROP, HEPATIC, BMP, BNP, PTT, CBC, CK, PT #### [place] [address] USACreatinine Clr Calc Tgcfpfpd169.92NormalThe [facility] Hospital Physician GroupComment on above:Result Comment: PERFORMED BY: [place] [address] PATHOLOGIST GROCERY CARRIER DERECK BOOTHE M.D.Performed By: #### HS TROP, HEPATIC, BMP, BNP, PTT, CBC, CK, PT #### [place] [address] USAGFR/1.73 sq M.predicted MDRD (S/P/Bld) [Vol rate/Area] mL/min/{1.73_m2}NormalThe [facility] Hospital Physician GroupComment on above:Performed By: #### HS TROP, HEPATIC, BMP, BNP, PTT, CBC, CK, PT #### [facility] [address] [place] [address] USAGlucose [Mass/Vol]98 mg/sCWfhvdd66-660Jdj [facility] Physician GroupComment on above:Result Comment: Random Glucose Reference Range is dependent on time and content of last meal. Glucose of more than 200 mg/dL in a nonstressed, ambulatory subject supports the diagnosis of Diabetes Mellitus. ADA recommended reference rangePerformed By: #### HS TROP, HEPATIC, BMP, BNP, PTT, CBC, CK, PT #### [facility] [address] [place] [address] USAPotassium [Moles/Vol]3.9 mmol/LNormal3.5-5.1The [facility] Physician GroupComment on above:Performed By: #### HS TROP, HEPATIC, BMP, BNP, PTT, CBC, CK, PT #### [facility] [address] [place] [address] USASodium [Moles/Vol]132 mmol/JQuj153-608Dmv [facility] Physician GroupComment on above:Performed By: #### HS TROP, HEPATIC, BMP, BNP, PTT, CBC, CK, PT #### [facility] [address] [place] [address] USAUrea nitrogen [Mass/Vol]8 mg/dLNormal7-25The [facility] Physician GroupComment on above:Performed By: #### HS TROP, HEPATIC, BMP, BNP, PTT, CBC, CK, PT #### [facility] [address] [place] [address] USABasophils Auto (Bld) [#/Vol]Ordered By: Wesley Newell on 89-17-6645Ygvacfala (Bld) [#/Vol]Automated basophil count0.0-0.2FWayne HospitalBasophils/100 WBC Auto (Bld)Ordered By: Wesley Newell on 27-41-9665Rdsflpitp/100 WBC (Bld)Automated basophil %.Ch[facility] Medical CenterBilirubin.direct [Mass/volume] in Serum or PlasmaOrdered By: Wesley Newell on 55-61-5908Xedtoyurq.direct [Mass/Vol]Bilirubin.direct [Mass/volume] in Serum or PlasmaHigh0.03-0.18FWayne HospitalBilirubin.total [Mass/volume] in Serum or PlasmaOrdered By: Wesley Newell on 47-15-0081Alnfaqxfk [Mass/Vol]Bilirubin.total [Mass/volume] in Serum or Plasma0.3-1.0[facility] Va Medical CenterCORNEAL EPITHELIAL DEBRIDEMENT (CULTURE/DIAGNOSTIC) OD (RIGHT EYE)on 55-64-2518Yqkufwhfk ClinicCT head/brain wo conon 63-74-3434RR head/brain [place] [address] CT Scan Report Signed Patient: Mak Garces MR#: [id number] 6 : 1955 Acct:[id number] Age/Sex: 68 / M ADM Date: 06/17/24 Loc: ER Room: Type: [facility] ER Attending Dr: Copies to: Wesley Newell DO Ordering Provider: Wesley Newell DO Date of Service: 06/17/24 CT/CT head/brain wo con: lightheaded CT BRAIN WITHOUT CONTRAST: CLINICAL HISTORY: Lightheadedness, chills COMPARISON: None TECHNIQUE: Contiguous axial unenhanced images were obtained through the brain. This CT exam was performed using one or more following dose reduction techniques: Automated exposure control, adjustment of the mA and/or kV according to patient size, or use of iterative reconstruction technique. FINDINGS: There is no evidence of midline shift, intra or extra-axial fluid collection, hemorrhage or CT evidence of large vascular distribution stroke. Mild central involutional changes and chronic small vessel ischemic disease. Cataract surgery. Visualized paranasal sinuses are clear. The surrounding soft tissues are normal. CT/CT head/brain wo con IMPRESSION: NO ACUTE INTRACRANIAL ABNORMALITY. CHRONIC SMALL VESSEL CHANGES. Impression dictated by: Niels Osborne M.D.06/17/2024 10:09 AM Dictation Location: RADIO-PC-26 Transcribed By: RENE 06/17/24 1009 Dictated By: Niels Osborne MD 06/17/24 1005 Signed By: 06/17/24 1009[facility] Physician GroupCalcium [Mass/volume] in Serum or PlasmaOrdered By: Wesley Newell on 58-29-5834Ykeaztz [Mass/Vol]Calcium [Mass/volume] in Serum or Plasma8.6-10.3FWayne HospitalCarbon dioxide, total [Moles/volume] in Serum or PlasmaOrdered By: Wesley Newell on 06-35-7909DO4 [Moles/Vol]Carbon dioxide, total [Moles/volume] in Serum or Plasma 21.0-31.0[facility] Medical CenterChloride [Moles/volume] in Serum or PlasmaOrdered By: Wesley Newell on 79-28-3675Lqmhtvqe [Moles/Vol]Chloride [Moles/volume] in Serum or Sdjyoy78-289ZzcvfjwhyChillicothe Va Medical CenterComplete Blood Count Auto Diffon 87-62-6959Qofbyybht (Bld) [#/Vol]0.1 10*3/uLNormal 0.0-0.2The [facility] Physician [facility] HospitalComment on above:Result Comment: PERFORMED BY: [place] [address] PATHOLOGIST GROCERY CARRIER DERECK BOOTHE M.D.Performed By: #### HS TROP, HEPATIC, BMP, BNP, PTT, CBC, CK, PT #### [facility] [address] [place] [address] USABasophils/100 WBC (Bld)0.7 %Normal.The [facility] Physician GroupComment on above:Performed By: #### HS TROP, HEPATIC, BMP, BNP, PTT, CBC, CK, PT #### [facility] [address] [place] [id number] USAEosinophils (Bld) [#/Vol]0.2 10*3/uLNormal0.0-0.45The [facility] Physician GroupComment on above:Performed By: #### HS TROP, HEPATIC, BMP, BNP, PTT, CBC, CK, PT #### [place] [address] USAEosinophils/100 WBC (Bld)1.5 %Normal.The [facility] Physician GroupComment on above:Performed By: #### HS TROP, HEPATIC, BMP, BNP, PTT, CBC, CK, PT #### [place] [address] USAErythrocyte distribution width (RBC) [Ratio]16.4 %High 12.0-14.8The [facility] Physician GroupComment on above:Performed By: #### HS TROP, HEPATIC, BMP, BNP, PTT, CBC, CK, PT #### [place] [address] USAHematocrit (Bld) [Volume fraction]41.8 %Ayhgaj75.8-50.0The [facility] Physician GroupComment on above:Performed By: #### HS TROP, HEPATIC, BMP, BNP, PTT, CBC, CK, PT #### [place] [address] USAHemoglobin (Bld) [Mass/Vol]13.0 g/rEWedtaq54.0-17.0The [facility] Physician GroupComment on above:Performed By: #### HS TROP, HEPATIC, BMP, BNP, PTT, CBC, CK, PT #### [place] [address] USALymphocytes (Bld) [#/Vol]0.7 10*3/uLLow1.00-4.8The [facility] Physician GroupComment on above:Performed By: #### HS TROP, HEPATIC, BMP, BNP, PTT, CBC, CK, PT #### [place] [address] USALymphocytes/100 WBC (Bld)6.1 %Normal.The [facility] Physician GroupComment on above:Performed By: #### HS TROP, HEPATIC, BMP, BNP, PTT, CBC, CK, PT #### [address] Perez StreetMCH (RBC) [Entitic mass]27.9 tpHxrtzt58.5-35.2The [facility] Physician GroupComment on above:Performed By: #### HS TROP, HEPATIC, BMP, BNP, PTT, CBC, CK, PT #### [facility] [address] (RBC) [Entitic vol]90.0 sHObyrsa46.5-101The [facility] Physician GroupComment on above:Performed By: #### HS TROP, HEPATIC, BMP, BNP, PTT, CBC, CK, PT #### [facility] [address] [place] [address] USAMean Corpuscular HGB Conc31.0 g/dLLow32.5-35.6The [facility] Physician GroupComment on above:Performed By: #### HS TROP, HEPATIC, BMP, BNP, PTT, CBC, CK, PT #### [facility] [address] [place] [address] USAMonocytes (Bld) [#/Vol]0.6 10*3/uLNormal0.0-0.8The [facility] Physician GroupComment on above:Performed By: #### HS TROP, HEPATIC, BMP, BNP, PTT, CBC, CK, PT #### [place] [address] USAMonocytes/100 WBC (Bld)34.85 %High0.00-20.00The [facility] Physician GroupComment on above:Result Comment: For adults in ED, MDW > 20.0 may be associated with a higher risk of sepsis during the first 12 hrs of hospital admissionPerformed By: #### HS TROP, HEPATIC, BMP, BNP, PTT, CBC, CK, PT #### [facility] [address] [place] [address] USAMonocytes/100 WBC (Bld)5.5 %Normal.The [facility] Physician GroupComment on above:Performed By: #### HS TROP, HEPATIC, BMP, BNP, PTT, CBC, CK, PT #### [place] [address] USANeutrophils (Bld) [#/Vol]10.0 10*3/uLHigh1.8-7.7The [facility] Physician GroupComment on above:Performed By: #### HS TROP, HEPATIC, BMP, BNP, PTT, CBC, CK, PT #### [facility] [address] [place] [address] USANeutrophils/100 WBC (Bld)86.2 %Normal.The [facility] Physician GroupComment on above:Performed By: #### HS TROP, HEPATIC, BMP, BNP, PTT, CBC, CK, PT #### [facility] [address] [place] [address] USANRBC%0.0 /100{WBC}Normal0-0.5The [facility] Physician Group Comment on above:Performed By: #### HS TROP, HEPATIC, BMP, BNP, PTT, CBC, CK, PT #### [facility] [address] [place] [address] USAPlatelet mean volume (Bld) [Entitic vol]8.0 fLNormal 6.6-10.1The [facility] Physician GroupComment on above:Performed By: #### HS TROP, HEPATIC, BMP, BNP, PTT, CBC, CK, PT #### [facility] [address] [place] [address] USAPlatelets (Bld) [#/Vol]318 10*3/cNVdjqnd040-599Ifo [facility] Physician GroupComment on above:Performed By: #### HS TROP, HEPATIC, BMP, BNP, PTT, CBC, CK, PT #### [facility] [address] [place] [address] USARBC (Bld) [#/Vol]4.64 10*6/uLNormal3.90-5.60The [facility] Physician GroupComment on above:Performed By: #### HS TROP, HEPATIC, BMP, BNP, PTT, CBC, CK, PT #### [facility] [address] [place] [address] USAWBC (Bld) [#/Vol]11.6 10*3/uLHigh4.1-10.5The [facility] Physician GroupComment on above:Performed By: #### HS TROP, HEPATIC, BMP, BNP, PTT, CBC, CK, PT #### [facility] [address] [place] [address] USACreatine Kinaseon 37-99-2398RS [Catalytic activity/Vol]144 U/VNjdfhj33-533Xor [facility] Physician GroupComment on above:Performed By: #### HS TROP, HEPATIC, BMP, BNP, PTT, CBC, CK, PT #### [facility] [address] [place] [id number] USACreatine kinase [Enzymatic activity/volume] in Serum or PlasmaOrdered By: Wesley Newell on 85-77-4676WP [Catalytic activity/Vol]Creatine kinase [Enzymatic activity/volume] in Serum or Thbujq47-195CxnncvfkfChillicothe Va Medical CenterCreatinine [Mass/volume] in Serum or PlasmaOrdered By: Wesley Newell on 99-96-9996Swxjapdmfq [Mass/Vol]Creatinine [Mass/volume] in Serum or Plasma 0.70-1.30[facility] Va Medical CenterECG 12 lead ECGon 38-41-3801VHY 12 lead [facility]AV[facility] [place] [address] [place] [address] Electrocardiograph Report Signed Patient: Mak Garces MR#: [id number] 6 : 1955 Acct:[id number] Age/Sex: 68 / M ADM Date: 06/17/24 Loc: ER Room: Type: [facility] ER Attending Dr: Ordering Provider: Wesley Newell DO Date of Service: 06/17/24 ECG/ECG 12 lead ECG: Recheck/Abnormal Lab/Rx Copies to: Test Reason : Blood Pressure : 131/82 mmHG Vent. Rate : 66 BPM Atrial Rate : 66 BPM P-R Int : 190 ms QRS Dur : 86 ms QT Int : 442 ms P-R-T Axes : 52 0 -4 degrees QTcB Int : 463 ms Normal sinus rhythm Cannot rule out Anterior infarct , age undetermined Abnormal ECG No previous ECGs available Confirmed by Wesley Newell DO ([id number]) on 06/17/2024 3:47:27 PM Referred By: Electronically Signed By: Wesley Osiris DO Transcribed By: MUS Signed By Wesley Newell DO 5 1547NoAdams County Regional Medical Centere [facility] Physician GroupEosinophils Auto (Bld) [#/Vol]Ordered By: Wesley Newell on 89-83-6236Icrtvjjcxna (Bld) [#/Vol]Automated eosinophil count 0.0-0.45[facility] CenterEosinophils/100 WBC Auto (Bld)Ordered By: Wesley Newell on 07-14-5127Gnfztihaimy/100 WBC (Bld)Automated eosinophil %. [facility] CenterErythrocyte distribution width Auto (RBC) [Ratio]Ordered By: Wesley Newell on 69-15-9950Zgplcspsxjg distribution width (RBC) [Ratio]Erythrocyte distribution width [Ratio] by Automated fepjcWftn72.0-14.8 [facility] CenterFungus Spec Culton 99-68-8964Dpncby identified Cx Nom (Unsp spec)CULTURE, FUNGAL: No Fungus isolated after 28 daysNormalCUniversity Hospitals Health SystemComment on above:Performed By: #### 580-1 ####[facility] LABCLIA [id number] [place] [address] [place]#### 609-8 ####[facility] LABIA [id number] [place] [address] [place] AMERICAGlobulin Calc (S) [Mass/Vol]Ordered By: Wesley Newell on 64-82-9220Hsudtshg (S) [Mass/Vol]Serum globulin measurement by calculation (mass/volume)[facility] CenterGlucose [Mass/volume] in Serum or PlasmaOrdered By: Wesley Newell on 84-52-8255Vckamyf [Mass/Vol]Glucose [Mass/volume] in Serum or Rylbzz88-527 [facility] CenterComment on above:ADA recommended reference rangeRandom Glucose Reference Range is dependent on time and content of last meal. Glucose of more than 200 mg/dL in a nonstressed, ambulatory subject supports the diagnosisof Diabetes Mellitus.Hematocrit Auto (Bld) [Volume fraction]Ordered By: Wesley Newell on 74-57-5224Mjizhorfjx (Bld) [Volume fraction] Hematocrit [Volume Fraction] of Blood by Automated count38.8-50.0[facility] CenterHemoglobin [Mass/volume] in BloodOrdered By: Wesley Newell on 43-51-0434Jvlgrofagd (Bld) [Mass/Vol]Hemoglobin [Mass/volume] in Blood 13.0-17.0[facility] CenterHepatic Panelon 39-45-6373Osvxmbj [Mass/Vol]4.0 g/dLNormal3.5-5.7The [facility] Physician GroupComment on above: Performed By: #### HS TROP, HEPATIC, BMP, BNP, PTT, CBC, CK, PT #### [facility] [address] [place] [address] USAAlbumin/Globulin [Mass ratio]1.2 {ratio}NormalThe [facility] Physician GroupComment on above:Performed By: #### HS TROP, HEPATIC, BMP, BNP, PTT, CBC, CK, PT #### [facility] [address] [place] [address] USAALP [Catalytic activity/Vol]91 U/KQerseh28-819Nvd [facility] Physician GroupComment on above:Performed By: #### HS TROP, HEPATIC, BMP, BNP, PTT, CBC, CK, PT #### [place] [address] USAALT [Catalytic activity/Vol]13 U/LNormal7-52The [facility] Physician GroupComment on above:Performed By: #### HS TROP, HEPATIC, BMP, BNP, PTT, CBC, CK, PT #### [place] [address] USAAST [Catalytic activity/Vol]20 U/GXnvizh67-59Pij [facility] Physician GroupComment on above:Performed By: #### HS TROP, HEPATIC, BMP, BNP, PTT, CBC, CK, PT #### [place] [address] USABilirubin [Mass/Vol]0.6 mg/dLNormal0.3-1.0The [facility] Physician GroupComment on above:Performed By: #### HS TROP, HEPATIC, BMP, BNP, PTT, CBC, CK, PT #### [facility] [address] [place] [address] USABilirubin,Indirect0.4 mg/dLNoBlue Ridge Regional Hospital Physician GroupComment on above:Performed By: #### HS TROP, HEPATIC, BMP, BNP, PTT, CBC, CK, PT #### [facility] [address] [place] [address] USABilirubin.indirect [Mass/Vol]0.20 mg/dLHigh0.03-0.18The [facility] Physician GroupComment on above:Performed By: #### HS TROP, HEPATIC, BMP, BNP, PTT, CBC, CK, PT #### [facility] [address] [place] [address] USAGlobulin (S) [Mass/Vol]3.4 g/dLNormMercy Health Clermont Hospitale [facility] Physician [facility] HospitalComment on above:Performed By: #### HS TROP, HEPATIC, BMP, BNP, PTT, CBC, CK, PT #### [facility] [address] [place] [address] USAProtein [Mass/Vol]7.4 g/dLNormal6.4-8.9The [facility] Physician GroupComment on above:Performed By: #### HS TROP, HEPATIC, BMP, BNP, PTT, CBC, CK, PT #### [facility] [address] [place] [address] USAINR in Platelet poor plasma by Coagulation assayOrdered By: Wesley Newell on 80-39-6658LUP Coag (PPP) [Relative time]INR in Platelet poor plasma by Coagulation assayChillicothe Va Medical CenterComment on above:INR Therapeutic Range A) Pre- and Peroperative OAT started two weeks before surgery. NOT HIP SURGERY: 1.5 - 2.5 HIP SURGERY: 2 - 3B) Primary and secondary prevention of venous THROMBOSIS: 2 - 3C) Active venous thrombosis, pulmonary embolismand prevention of recurrent venous thrombosis: 2 - 3D) Prevention of arterial thromboembolismincluding patients with mechanical heart valves: 3 - 4.5 Leukocytes [#/volume] corrected for nucleated erythrocytes in Blood by Automated counOrdered By: Wesley Newell on 99-41-3613HDU corrected for nucl RBC Auto (Bld) [#/Vol]Leukocytes [#/volume] corrected for nucleated erythrocytes in Blood by Automated counHigh4.1-10.5FWayne HospitalLymphocytes Auto (Bld) [#/Vol]Ordered By: Wesley Newell on 92-00-6397Twjawvkmmee (Bld) [#/Vol] Lymphocytes [#/volume] in Blood by Automated countLow1.00-4.8[facility] Medical CenterLymphocytes/100 WBC Auto (Bld)Ordered By: Wesley Newell on 67-48-4647Gaczrvvcckg/100 WBC (Bld)Lymphocytes/100 leukocytes in Blood by Automated count.[facility] Medical CenterMCH Auto (RBC) [Entitic mass] Ordered By: Wesley Newell on 13-32-2195XPX (RBC) [Entitic mass]MCH [Entitic mass] by Automated count27.5-35.2FWayne HospitalMCHC Auto (RBC) [Mass/Vol]Ordered By: Wesley Newell on 89-26-7169ZIBP (RBC) [Mass/Vol]MCHC [Mass/volume] by Automated uahnbKqp72.5-35.6FWayne HospitalMCV Auto (RBC) [Entitic vol]Ordered By: Wesley Newell on 20-96-6910RMO (RBC) [Entitic vol]MCV [Entitic volume] by Automated count83.5-101[facility] Medical CenterMonocyte distribution width [Entitic volume] in Blood by AutomatedOrdered By: Wesley Newell on 47-43-4727Ztarzfcz distribution width Auto (Bld) [Entitic vol]Monocyte distribution width [Entitic volume] in Blood by AutomatedHigh 0.00-20.00[facility] CenterComment on above:For adults in ED, MDW > 20.0 may be associated with a higher risk of sepsis during the first 12 h rs of hospital admissionMonocytes Auto (Bld) [#/Vol]Ordered By: Wesley Newell on 02-46-8391Wpunuquzk (Bld) [#/Vol]Automated blood monocyte count0.0-0.8[facility] CenterMonocytes/100 WBC Auto (Bld)Ordered By: Wesley Newell on 70-95-5698Xchbsjxob/100 WBC (Bld)Automated monocyte %.[facility] CenterNatriuretic peptide B [Mass/Vol]Ordered By: Wesley Newell on 06-17-2024 Natriuretic peptide B (Bld) [Mass/Vol]BNP ser/plasHigh5-100[facility] Medical CenterNeutrophils Auto (Bld) [#/Vol]Ordered By: Wesley Newell on 75-46-9447Teokcwliwsr (Bld) [#/Vol]Neutrophils [#/volume] in Blood by Automated countHigh1.8-7.7FWayne HospitalNeutrophils/100 WBC Auto (Bld) Ordered By: Wesley Newell on 73-70-7779Zmsgantsrzn/100 WBC (Bld)Automated neutrophil %.[facility] CenterNo Panel InformationOrdered By: Wesley Newell on 74-03-2106Npduvdwnz GFR (CKD-EPI)> 60.0 mL/MinChillicothe Va Medical CenterPharmacy Creatinine Clearance (Tegq252.92[facility] Medical CenterNucleated erythrocytes [Presence] in Blood by Automated count Ordered By: Wesley Newell on 08-92-1355Jbopmpvdv RBC Auto Ql (Bld)Nucleated erythrocytes [Presence] in Blood by Automated count0-0.5FWayne HospitalPartial Thromboplastin Timeon 87-89-5850eNJS Coag (Bld) [Time]29.2 wMnpgdg04.1-36.5The [facility] Physician GroupComment on above:Result Comment: A hematocrit value greater than 55% may lead to inaccurate results in coagulation testing. Patients having hematocrit values >55% require a special collection tube for coagulation studies. Please contact the laboratory at [phone] for redraw instructions. PERFORMED BY: [facility] [address] [place] [address] PATHOLOGIST GROCERY CARRIER DERECK BOOTEH M.D.Performed By: #### HS TROP, HEPATIC, BMP, BNP, PTT, CBC, CK, PT #### [facility] [address] [place] [address] USAPlatelet mean volume Auto (Bld) [Entitic vol]Ordered By: Wesley Newell on 48-57-9398Dzbmfibt mean volume (Bld) [Entitic vol]Platelet mean volume [Entitic volume] in Blood by Automated count6.6-10.1FWayne HospitalPlatelets Auto (Bld) [#/Vol]Ordered By: Wesley Newell on 06-17-2024 Platelets (Bld) [#/Vol]Platelets [#/volume] in Blood by Automated xjozy819-330 [facility] CenterPotassium [Moles/volume] in Serum or Plasma Ordered By: Wesley Newell on 98-60-2977Vjdljkpgb [Moles/Vol]Potassium [Moles/volume] in Serum or Plasma3.5-5.1FWayne HospitalProtein [Mass/volume] in Serum or PlasmaOrdered By: Wesley Newell on 02-90-5595Gskjxnv [Mass/Vol]Protein [Mass/volume] in Serum or Plasma6.4-8.9[facility] CenterProthrombin Time INRon 65-83-7122QLZ Coag (PPP) [Relative time]1.1 {INR}NormalThe [facility] Physician GroupComment on above:Result Comment: INR Therapeutic Range A) Pre- and Peroperative OAT started two weeks before surgery. NOT HIP SURGERY: 1.5 - 2.5 HIP SURGERY: 2 - 3 B) Primary and secondary prevention of venous THROMBOSIS: 2 - 3 C) Active venous thrombosis, pulmonary embolism and prevention of recurrent venous thrombosis: 2 - 3 D) Prevention of arterial thromboembolism including patients with mechanical heart valves: 3 - 4.5Performed By: #### HS TROP, HEPATIC, BMP, BNP, PTT, CBC, CK, PT #### [facility] [address] [place] [address] USAPT Coag (PPP) [Time]12.7 sNormal9.0-12.9The [facility] Physician GroupComment on above:Result Comment: A hematocrit value greater than 55% may lead to inaccurate results in coagulation testing. Patients having hematocrit values >55% require a special collection tube for coagulation studies. Please contact the laboratory at [phone] for redraw instructions.Performed By: #### HS TROP, HEPATIC, BMP, BNP, PTT, CBC, CK, PT #### [facility] [address] [place] [address] USAProthrombin time (PT)Ordered By: Wesley Newell on 06-17-2024 PT Coag (PPP) [Time]Prothrombin time (PT)9.0-12.9[facility] CenterComment on above:A hematocrit value greater than 55% may lead to inaccurate results in coagulation testing. Patientshaving hematocrit values >55% require a special collection tube for coagulation studies. Please contact the laboratory at [phone] for redraw instructions.RBC Auto (Bld) [#/Vol]Ordered By: Wesley Newell on 28-36-9707ENX (Bld) [#/Vol]Erythrocytes [#/volume] in Blood by Automated count3.90-5.60[facility] Health Prebleerum or plasma albumin/globulin mass ratioOrdered By: Wesley Newell on 53-78-2058Inigyqt/Globulin [Mass ratio]Serum or plasma albumin/globulin mass ratioKettering Health Prebleerum or plasma anion gap determinationOrdered By: Wesley Newell on 15-51-6878Blgek gap [Moles/Vol]Serum or plasma anion gap determination6.0-15.0 [facility] Prebleerum or plasma non-glucuronidated bilirubin measurement (mass/volume)Ordered By: Wesley Newell on 81-16-2199Jjlwwvyrp.indirect [Mass/Vol]Serum or plasma non-glucuronidated bilirubin measurement (mass/volume)[facility] Health Prebleodium [Moles/volume] in Serum or PlasmaOrdered By: Wesley Newell on 65-31-2538Flgnti [Moles/Vol]Sodium [Moles/volume] in Serum or QkdlfqLzf337-706TwzwplghdChillicothe Va Medical Center Troponin I High Sensitivityon 55-39-5216Nbgcovth I High Rpwczypkblq2Uexvne1-19 The [facility] Physician GroupComment on above:Result Comment: The Troponin units of report have been changed to meet the Chest Pain Accreditation requirement, element EC5.M1l2. Troponin units are changed from pg/ml to ng/L. Also, the decimal is removed and results are in whole numbers. PERFORMED BY: [address] [place] [address] PATHOLOGIST GROCERY CARRIER DERECK BOOTHE M.D.Performed By: #### HS TROP, HEPATIC, BMP, BNP, PTT, CBC, CK, PT #### [facility] [address] [place] [address] USATroponin I.cardiac [Mass/volume] in Serum or Plasma by Detection limit <= 0.01 ng/Ordered By: Wesley Newell on 29-79-1844Ibhgmlty I.cardiac DL <= 0.01 ng/mL [Mass/Vol]Troponin I.cardiac [Mass/volume] in Serum or Plasma by Detection limit <= 0.01 ng/0-[facility] Comment on above:The Troponin units of report have been changed to meet the Chest Pain Accreditation requirement, element EC5.M1l2. Troponin units are changed from pg/ml to ng/L. Also, the decimal is removed and results are in whole numbers.Urea nitrogen [Mass/volume] in Serum or PlasmaOrdered By: Wesley Newell on 82-87-6367Cihs nitrogen [Mass/Vol]Urea nitrogen [Mass/volume] in Serum or Plasma11-21[facility] Medical CenterWBC Auto (Bld) [#/Vol]Ordered By: Wesley Newell on 53-37-1302GKR (Bld) [#/Vol]Leukocytes [#/volume] in Blood by Automated countHigh4.1-10.[address] [place], [place] [address]X-ray reportOrdered By: Gabo Motta on 57-24-5575Oqcft reportAVITA [facility] [place] [address] [place] [address] XRay Report Signed Patient: Mak Garces MR#: [id number] : 1955 Acct:[id number] Age/Sex: 68 / M ADM Date: 5 Loc: ER Room: Type: [facility] ER Attending Dr: Copies to: Wesley Newell DO~ Ordering Provider: Wesley Newell DO Date of Service: 06/17/24 XR/XR chest 1V portable: Recheck/Abnormal Lab/Rx Plain film chest Single view HISTORY: Low blood pressure this morning. COMPARISON: None FINDINGS: SUPPORT DEVICES: None POSTSURGICAL CHANGES: None HEART: Within normal limits PULMONARY DAT: Within normal limits MEDIASTINUM: Unremarkable LUNGS AND PLEURA: Minor left basilar atelectasis/pneumonitis. BONY STRUCTURES: Intact ADDITIONAL FINDINGS None XR/XR chest 1V portable IMPRESSION: Minor left basilar atelectasis/pneumonitis. Impression dictated by: Gabo Motta M.D.06/17/2024 9:51 AM Dictation Location: RADIO-PC-23 Transcribed By: RENE 06/17/2451 Dictated By: Gabo Motta DO 06/17/24923 Signed By: 06/17/24 0951 [facility] CenterXR chest 1V portableon 49-40-1909PS chest 1V portableAVITA [facility] [address] [place] [address] XRay Report Signed Patient: Mak Garces MR#: [id number] : 1955 Acct:[id number] Age/Sex: 68 / M ADM Date: 06/17/24 Loc: ER Room: Type: [facility] ER Attending Dr: Copies to: Wesley Newell DO Ordering Provider: Wesley Newell DO Date of Service: 06/17/24 XR/XR chest 1V portable: Recheck/Abnormal Lab/Rx Plain film chest Single view HISTORY: Low blood pressure this morning. COMPARISON: None FINDINGS: SUPPORT DEVICES: None POSTSURGICAL CHANGES: None HEART: Within normal limits PULMONARY DAT: Within normal limits MEDIASTINUM: Unremarkable LUNGS AND PLEURA: Minor left basilar atelectasis/pneumonitis. BONY STRUCTURES: Intact ADDITIONAL FINDINGS None XR/XR chest 1V portable IMPRESSION: Minor left basilar atelectasis/pneumonitis. Impression dictated by: Gabo Motta M.D.06/17/2024 9:51 AM Dictation Location: RADIO-PC-23 Transcribed By: RENE 06/17/2451 Dictated By: Gabo Motta DO 06/17/24923 Signed By: 06/17/24 0951[facility] Physician GroupaPTT in Platelet poor plasma by Coagulation assayOrdered By: Wesley Newell on 87-15-6249gTUZ Coag (PPP) [Time] Activated partial thromboplastin time (aPTT) in platelet poor plasma by coagulation a25.1-36.5FWayne HospitalComment on above:A hematocrit value greater than 55% may lead to inaccurate results in coagulation testing. Patientshaving hematocrit values >55% require a special collection tube for coagulation studies. Please contact the laboratory at [phone] for redraw instructions.Tono [id number] (OPHTMN) MAK GARCES ([id number]) 1955 M Date Time Provider Department 06/16/24 ELOISE BROOKS OPHYOLYN During your visit today, we recorded the following information about you: Eloise Brooks MD 06/16/2024 8:55 PM Signed Received page that patient had called regarding a medication concern The patient is otherwise doing well Patient is inquiring about a refill on percocet. Reviewed their preferred pharmacy and confirmed the medication had already been sent to that location this evening just after they had called in earlier. Asked patient to call back if they still have any issues obtaining the medication. Call back and ED precautions reviewed. All further questions answered. Eloise Brooks MD Allergies As of Date: 06/16/2024 Noted Allergy Reaction LIV INHIBITORS 10/05/2014 3 - Cough Date Reviewed: 05/22/2024 Reviewed by: Jason Abrams COT - Fully Assessed Prescriptions as of 06/16/2024 - oxyCODONE-acetaminophen (PERCOCET) 5-325 mg tablet 1 tablet every 6 hours as needed for pain - levocetirizine 5 mg tablet Take 5 mg by mouth. - hydroxyurea (HYDREA) 500 mg capsule Take 1 capsule by mouth two times a day. - cefTAZidime ophthlamic solution 5% (50 mg/mL) (IP-CPD) Use 1 Drop in the right eye two times a day. - BABY ASPIRIN ORAL Take by mouth. - erythromycin (ROMYCIN) 5 mg/gram (0.5 %) ophthalmic ointment apply into right eye at bedtime - fluoride, sodium, (DENTA-GEL) 1.1 % gel use to BRUSH TEETH 3 to 5 MINUTES once daily - polyvinyl alcohol-povidone (REFRESH) 1.4-0.6 % ophthalmic solution 1 drop into affected eye as needed - ascorbic acid, vitamin C, (VITAMIN C) 500 mg tablet Take 1,000 mg by mouth once daily. - levothyroxine (SYNTHROID) 150 mcg tablet Take 1 tablet by mouth once daily. - fluticasone (FLONASE) 50 mcg/actuation nasal spray - tamsulosin (FLOMAX) 0.4 mg Take 0.4 mg by mouth daily at bedtime. - carboxymethylcellulose (REFRESH TEARS) 0.5 % drop Use 1 Drop in both eyes as needed. 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] 05/09/2017 Radiation dermatitis [L58.9] 07/03/2017 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] 09/11/2017 09/14/2017 S/P PKP (penetrating keratoplasty) [Z94.7] 09/14/2017 Neurotrophic keratoconjunctivitis of right eye *10/09/2017 Exposure keratoconjunctivitis, right [H16.211] 10/09/2017 Rupture of operation wound [T81.31XA] 10/09/2017 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*12/12/2017 Exposure keratoconjunctivitis of right eye [H16*12/12/2017 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] 05/08/2018 Radiation induced cataract [H26.8] 09/30/2019 Preoperative examination [Z01.818] 04/05/2021 Corneal scar, 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] 04/05/2021 Total, 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.89] 04/05/2021 Central corneal ulcer of right eye [H16.011] 05/11/2022 Conjunctival abrasion, right, initial encounter*05/11/2022 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 Otherwise, I did offer him a 2:15 tomorrow (saw you had someone scheduled at 2:00) and he said he would take that. Please advise. Eloise Brooks MD filed at 06/11/2024 8:35 AM Status: Addendum Urgent visit. 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 - Seen 05/16/[address] Roy - had perforated cornea with collapsed globe, glued - Seen 05/20/[address] Salazar for evisceration eval given repeated failed grafts and perforations - patient elects to try for possible PKP OD - Seen 05/22/[address] Fuchs: - Reports significant pain that started yesterday, trouble sleeping. Exam today with reformed globe, area of perforation appears sealed, but very thin - New hemorrhagic choroidal detachment, cornea closed but increasing pain secondary to choroidal - Long discussion regarding options including evisceration versus protecting eye to stabilize - Based on epithelial recovery after epilation of lashes, still has reasonable epithelial reserve but needs to have permanent near-total tarsorrhaphy - Discussed that choroidal hemorrhage may lead to retinal detachment that may lead to phthisis without further surgery - Bandage contact lens placed 05/22/24 OD Urgent visit today 06/10/24: - Noticed leak yesterday from right eye and then developed pain today - BCL gently removed at slit lamp, area of perforation appears sealed but very thin, kun negative - Re-glued today, very difficult gluing given significant eyelid tenderness, small palpebral opening, unable to place speculum - Appears to have good effect right now. 30 min post glue application patient is kun neg and in less pain. - Despite multiple attempts due to eyelid tenderness unable to place BCL - Of note, during conversation today he states that after he treats his skin cancers in about 1 month he may be more interested in the evisceration RTC 06/12/24 at 830AM with cornea fellow Dr. Irwin Domingo (of note patient states he may want to move appointment given poor weather upcoming, told patient to call if that is the case) Eloise Brooks MD Ophthalmology Resident PGY-[address] Irwin Domingo I reviewed the pertinent patient history and agree with Dr. Brooks's recommended plan for care. Though I did not see the patient, I was immediately available to see the patient. Meri Domingo MD, PGY-6 Cornea Fellow [facility] Debbie Ley 06/12/2024 4:36 PM Signed patient calling to confirm 06/13 appt at 2:15 pm with the lady physician please call him back at [phone] Ruben Nieves 06/13/2024 9:23 AM Signed Is it ok for patient to come at 2:15 today? Ruben Nieves 06/13/2024 10:21 AM Signed View All Conversations on this Encounter You Meri Elizondo MDJust now (10:16 AM) TG I sent message yesterday that he wasn't able to make it due to the icy weather. Thank you for seeing him today. Meri Elizondo MD You23 minutes ago (9:52 AM) NE He was supposed to come yesterday but yes is fine thanks! Ruben Nieves 06/16/2024 3:[address] Clark office's called to say that patient's called them reporting severe pain he is alternating tylenol and ibuprofen every 4 hrs., as well as cold compresses. Are you able to prescribe something to help get him through the night until his appointment tomorrow? Ruben Nieves 06/16/2024 4:01 PM Signed You Meri Elizondo MD; Gabo Fuchs MDJust now (4:00 PM) TG Relayed message to patient, he is very thankful please send to [facility] in [place], [place]. Meri Elizondo MD You; Gabo Fuchs MD20 minutes ago (3:40 PM) NE Sure Ill prescribe percocet! Ruben Nieves 06/17/2024 8:22 AM Signed Unable to make today's appointment, he is on the way to the ER for other issues. Asked to keep us posted and if he is ok to go home would see if he can come in tomorrow. Allergies As of Date: 06/12/2024 Noted Allergy Reaction LIV INHIBITORS 10/05/2014 3 - Cough Date Reviewed: 05/22/2024 Reviewed by: Jason Abrams COT - Fully Assessed Prescriptions as of 06/17/2024 - oxyCODONE-acetaminophen (PERCOCET) 5-325 mg tablet 1 tablet every 6 hours as needed for pain - (more content not included)...NormalWilson Memorial HospitalCNPNon [id number] (OPHTMN) MAK GARCES ([id number]) 1955 M Date Time Provider Department 06/10/24 GABO FUCHS OPHTMN During your visit today, we recorded the following information about you: Ruben Nieves 06/10/2024 1:42 PM Signed LV: 05/22/24 FV: 08/26/24 Patient reports OD started leaking yesterday and would like to schedule appointment to stop leaking. Please advise Gabo Fuchs MD filed at 05/22/2024 11:10 AM Status: Signed Encounter Diagnosis ICD-10-CM 1. 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 Other vitreous opacities, right eye H43.391 BSCAN OD (RIGHT EYE) 5. 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 Seen Sunday - had perforated cornea with collapsed globe, glued Seen yesterday by Dr Salazar for evisceration eval given repeated failed grafts and perforations - patient elects to try for possible PKP OD Reports significant pain that started yesterday, trouble sleeping. Exam today with reformed globe, area of perforation appears sealed, but very thin New hemorrhagic choroidal detachment, cornea closed but increasing pain secondary to choroidal Long discussion regarding options including evisceration versus protecting eye to stabilize Based on epithelial recovery after epilation of lashes, still has reasonable epithelial reserve but needs to have permanent near-total tarsorrhaphy Discussed that choroidal hemorrhage may lead to retinal detachment that may lead to phthisis without further surgery Patient remains unsure Bandage contact lens placed today OD Kontur 16mm BC = 8.6 Prophylaxis with ceftaz If symptoms improve can follow-up with me in 2 weeks If symptoms worsen call JOSSELYN can discuss option of evisceration versus emergent corneal repair if repeat perforation During this patient visit I have spent approximately 40 minutes out of 45 in counseling regarding medical diagnoses, treatment options and coordinating care. Gabo Fuchs MD Electronically signed on May 22, 2024 at 11:10 AM I have confirmed and edited as necessary the relevant ophthalmic history, ROS, and the neuro exam findings as obtained by others. I have seen and examined this patient. I have discussed the case and the management of this patient's care with the Resident/Fellow, if applicable. I also have reviewed and agree with the assessment and plan as stated above and agree with all of its relevant components. MD Ezequiel Hughes Tina-Marie 06/10/2024 4:27 PM Signed Spoke with patient and relayed message, he is on his way. Alexis Singh with notify resident button machine operator and contact patient with instructions. Mariam Roy MD You; Meri Elizondo MD1 hour ago (3:00 PM) SP I am still at [place] and Dr Irwin Domingo is in the operating room doing a ruptured globe. He should come in to see the resident button machine operator Allergies As of Date: 06/10/2024 Noted Allergy Reaction LIV INHIBITORS 10/05/2014 3 - Cough Date Reviewed: 05/22/2024 Reviewed by: Jason Abrams COT - Fully Assessed Reason for Visit: Patient Update [1234] Prescriptions as of 06/13/2024 - levocetirizine 5 mg tablet Take 5 mg by mouth. - hydroxyurea (HYDREA) 500 mg capsule Take 1 capsule by mouth two times a day. - cefTAZidime ophthlamic solution 5% (50 mg/mL) (IP-CPD) Use 1 Drop in the right eye two times a day. - BABY ASPIRIN ORAL Take by mouth. - erythromycin (ROMYCIN) 5 mg/gram (0.5 %) ophthalmic ointment apply into right eye at bedtime - fluoride, sodium, (DENTA-GEL) 1.1 % gel use to BRUSH TEETH 3 to 5 MINUTES once daily - polyvinyl alcohol-povidone (REFRESH) 1.4-0.6 % ophthalmic solution 1 drop into affected eye as needed - ascorbic acid, vitamin C, (VITAMIN C) 500 mg tablet Take 1,000 mg by mouth once daily. - levothyroxine (SYNTHROID) 150 mcg tablet Take 1 tablet by mouth once daily. - fluticasone (FLONASE) 50 mcg/actuation nasal spray - tamsulosin (FLOMAX) 0.4 mg Take 0.4 mg by mouth daily at bedtime. - carboxymethylcellulose (REFRESH TEARS) 0.5 % drop Use 1 Drop in both eyes as needed. 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 Surgical history with Dr. Fuchs- has contact bandage currently. 06/09 severity now. BRIEF EXAM: NAD Awake and Alert Non labored breathing INITIAL WORKUP AND DECISION MAKING: discuss with endoscopy registered nurse- inadvertently instructed to the ED; they intended and are able to accommodate at [facility] right now; discuss with patient and endoscopy registered nurse and heading over. They will call me if any emergent needs after their visit. Orders Placed This Encounter No orders of the defined types were placed in this encounter. 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 Please advise. Gabo Fuchs MD filed at 05/22/2024 11:10 AM Status: Signed Encounter Diagnosis ICD-10-CM 1. 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 Other vitreous opacities, right eye H43.391 BSCAN OD (RIGHT EYE) 5. 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 Seen Sunday - had perforated cornea with collapsed globe, glued Seen yesterday by Dr Salazar for evisceration eval given repeated failed grafts and perforations - patient elects to try for possible PKP OD Reports significant pain that started yesterday, trouble sleeping. Exam today with reformed globe, area of perforation appears sealed, but very thin New hemorrhagic choroidal detachment, cornea closed but increasing pain secondary to choroidal Long discussion regarding options including evisceration versus protecting eye to stabilize Based on epithelial recovery after epilation of lashes, still has reasonable epithelial reserve but needs to have permanent near-total tarsorrhaphy Discussed that choroidal hemorrhage may lead to retinal detachment that may lead to phthisis without further surgery Patient remains unsure Bandage contact lens placed today OD Kontur 16mm BC = 8.6 Prophylaxis with ceftaz If symptoms improve can follow-up with me in 2 weeks If symptoms worsen call JOSSELYN can discuss option of evisceration versus emergent corneal repair if repeat perforation During this patient visit I have spent approximately 40 minutes out of 45 in counseling regarding medical diagnoses, treatment options and coordinating care. Gabo Fuchs MD Electronically signed on May 22, 2024 at 11:10 AM I have confirmed and edited as necessary the relevant ophthalmic history, ROS, and the neuro exam findings as obtained by others. I have seen and examined this patient. I have discussed the case and the management of this patient's care with the Resident/Fellow, if applicable. I also have reviewed and agree with the assessment and plan as stated above and agree with all of its relevant components. Gaob Fuchs MD Allergies As of Date: 06/04/2024 Noted Allergy Reaction LIV INHIBITORS 10/05/2014 3 - Cough Date Reviewed: 05/22/2024 Reviewed by: Jason Abrams COT - Fully Assessed Prescriptions as of 11/18/2024 - erythromycin (ROMYCIN) 5 mg/gram (0.5 %) ophthalmic ointment Use 1 application in the right eye four times daily. Apply less than a pea-sized amount per application - acetaminophen (TYLENOL) 325 mg tablet Take 2 tablets by mouth every 6 hours as needed (Mild Pain (1-3)). - ondansetron (ZOFRAN) 8 mg tablet Take 1 tablet by mouth every 8 hours as needed for nausea/vomiting. - levocetirizine 5 mg tablet Take 5 mg by mouth. - hydroxyurea (HYDREA) 500 mg capsule Take 1 capsule by mouth two times a day. - cefTAZidime ophthlamic solution 5% (50 mg/mL) (IP-CPD) Use 1 Drop in the right eye two times a day. - BABY ASPIRIN ORAL Take by mouth. - erythromycin (ROMYCIN) 5 mg/gram (0.5 %) ophthalmic ointment apply into right eye at bedtime - fluoride, sodium, (DENTA-GEL) 1.1 % gel use to BRUSH TEETH 3 to 5 MINUTES once daily - polyvinyl alcohol-povidone (REFRESH) 1.4-0.6 % ophthalmic solution 1 drop into affected eye as needed - ascorbic acid, vitamin C, (VITAMIN C) 500 mg tablet Take 1,000 mg by mouth once daily. - levothyroxine (SYNTHROID) 150 mcg tablet Take 1 tablet by mouth once daily. - fluticasone (FLONASE) 50 mcg/actuation nasal spray - tamsulosin (FLOMAX) 0.4 mg Take 0.4 mg by mouth daily at bedtime. - carboxymethylcellulose (REFRESH TEARS) 0.5 % drop Use 1 Drop in both eyes as needed. 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] 05/09/2017 Radiation dermatitis [L58.9] 07/03/2017 Perforated corneal ulcer of right (more content not included)...[facility] surgeryon [id number] obtained: written [place] Protocol: Procedure explained and questions answered to patient or proxy's satisfaction: Yes Test results available and properly labeled: Yes Pathology report reviewed: Yes External notes reviewed: Yes Photo or diagram used for site identification: Yes Site/side marked: Yes Slide independently reviewed by Mohs surgeon: Yes Immediately prior to procedure a time out was called: Yes Patient identity confirmed: verbally with patient Preparation: Patient was prepped and draped in usual sterile fashion Anticoagulation: Is the patient taking prescription anticoagulant and/or aspirin prescribed/recommended by a physician? No Was the anticoagulation regimen changed prior to Mohs? No Anesthesia: Anesthesia method: local infiltration Local anesthetic: lidocaine 1% WITH epi Procedure Details: Case ID Number: [id number] Biopsy accession number: [id number] Date of biopsy: 05/20/2024 Frozen section biopsy performed: No Specimen debulked: Yes (nBCC) Pre-Op diagnosis: basal cell carcinoma BCC subtype: nodular Surgical site (from skin exam): Left Ala Nasi Pre-operative length (cm): 0.5 Pre-operative width (cm): 0.6 Indications for Mohs surgery: anatomic location where tissue conservation is critical Previously treated? No Micrographic Surgery Details: Post-operative length (cm): 0.9 Post-operative width (cm): 1 Number of Mohs stages: 1 Stage 1 Comments: The patient was brought into the operating room and placed in the procedure chair in the appropriate position. The area positive by previous biopsy was identified and confirmed with the patient. The area of clinically obvious tumor was debulked using a curette and/or scalpel as needed. An incision was made following the Mohs approach through the skin. The specimen was taken to the lab, divided into 2 piece(s) and appropriately chromacoded and processed. Tumor features identified on Mohs section: no tumor identified Depth of defect: subcutaneous fat Patient tolerance of procedure: tolerated well, no immediate complications Reconstruction: Was the defect reconstructed? Yes Was reconstruction performed by the same Mohs surgeon? Yes Setting of reconstruction: outpatient office When was reconstruction performed? same day Type of reconstruction: flap Type of flap: transposition Transposition flap type: trilobed Flap area (cm2): 15 Subcutaneous Layers (Deep Stitches) Suture size: 5-0 Suture type: Vicryl Stitches: Buried vertical mattress Fine/surface layer approximation (top stitches) Fine approximation suture size: 6-0. Epidermal/Superficial suture type: Prolene Stitches: simple running Suture removal (days): 7 Hemostasis achieved with: electrodesiccation Outcome: patient tolerated procedure well with no complications Post-procedure details: sterile dressing applied and wound care instructions given Dressing type: Hypafix, pressure dressing, petrolatum and [facility] Work Phone: [facility] Work Phone: Surgical pathology studyon [id number] pathology studyPathology report.total SEE COMMENT Dermatopathology Report Case: [id number] Authorizing Provider: Serg Foster MD PhD Collected: 05/30/2024 1048 Ordering Location: [facility] Received: 05/30/2024 1048 [facility] Pathologist: Karan Paniagua MD Specimen: OUTSIDE BLOCK(S)/SLIDE(S), 1 SLIDE, [facility] #[id number] (BX: 05/20/2024) Path report.final diagnosis SEE COMMENT 1 SLIDE, [facility] #[id number] (A) (BX: 05/20/2024) A. SKIN, LT POST NECK, SHAVE BIOPSY: FOCALLY ULCERATED MALIGNANT MELANOMA, BRESLOW THICKNESS 0.4 MM, PRESENT ON THE DEEP AND PERIPHERAL MARGIN AND BASAL CELL CARCINOMA, SUPERFICIAL GROWTH PATTERN, PRESENT ON THE DEEP MARGIN, SEE NOTE. Note: Microscopic examination reveals a specimen that extends into the mid reticular dermis. There is dense solar elastosis and there is a very focal area of ulceration. There is an asymmetric proliferation of nested and single atypical melanocytes along the dermal-epidermal junction and involving adnexal epithelium. There are nests of atypical melanocytes in the dermis and there is a focus of basaloid cells with peripheral palisading connected to the undersurface of the epidermis. B. SKIN, LT ALA NASI, BIOPSY: SLIDE NOT RECEIVED C. SKIN, LT FOREARM, BIOPSY: SLIDE NOT RECEIVED D. SKIN, RT MID BACK, BIOPSY: SLIDE NOT RECEIVED Electronically signed out by Karan Paniagua MD Synoptic report SEE COMMENT MELANOMA OF THE SKIN: Biopsy MELANOMA OF THE SKIN: BIOPSY - All Specimens 8th Edition - Protocol posted: 07/20/2021 SPECIMEN Procedure: Biopsy, shave Specimen Laterality: Left TUMOR Tumor Site: Skin of scalp and neck: LT post neck (specimen A) Histologic Type: Lentigo maligna melanoma Maximum Tumor (Breslow) Thickness (Millimeters): 0.4 mm Ulceration: Present Extent of Ulceration (Millimeters): 0.02 mm Anatomic (Matty) Level: III (melanoma fills and expands papillary dermis) Mitotic Rate: None identified Microsatellite(s): Not identified Lymphovascular Invasion: Not identified Neurotropism: Not identified Tumor-Infiltrating Lymphocytes: Present, nonbrisk Tumor Regression: Not identified MARGINS: Margin Status for Invasive Melanoma: All margins negative for invasive melanoma Margin Status for Melanoma in situ: Melanoma in situ present at margin Margin(s) Involved by Melanoma in Situ: Peripheral Margin(s) Involved by Melanoma in Situ: Deep PATHOLOGIC STAGE CLASSIFICATION (pTNM, AJCC 8th Edition): pT Category: pT1b Path report.relevant Hx A: SHAVE/ TANGENTIAL NEOPLASM OF UNCERTAIN BEHAVIOR OF BONE, SOFT TISSUE AND SKIN MM VS PIGMENTED BCC, 0.5 X 1.0CM Path report.gross observation SEE COMMENT A. OUTSIDE BLOCK(S)/SLIDE(S). Received for consultation from [facility] Is one slide labeled #[id number] (A) (BX: 05/20/2024) along with the corresponding pathology report. Slide received for specimenA only.[facility] on above:Order Comment: Materials Received: 1 SLIDE, [facility] #[id number] (BX: 05/20/2024)BSCAN OD (RIGHT EYE) on [id number] ClinicRadiology Study observation (narrative)[facility] W Auto Differential panel (Bld)on [id number] (Bld) [#/Vol] 0.12 10*3/uLHigh<0.11CProtestant [facility] on above:Order Comment: Specimen Type: BLOOD SPECIMENOrdering Facility: [facility] Address:[address] [place], [place] [address]Lrheyjdgo By: #### 83541-4 ####[facility] LABCLIA [id number] [place], [place] [address]Shgaiecoh/100 WBC (Bld)1.1 %[facility] on above:Order Comment: Specimen Type: BLOOD SPECIMENOrdering Facility: [facility] Address:[address] [place], [place] [address]Performed By: #### 98444-8 ####[facility] LABIA [id number] [place], [place] [address]Ihpnzfonulym cell count method Nom (Bld)AutoNormalCProtestant Hospital on above:Order Comment: Specimen Type: BLOOD SPECIMENOrdering Facility: [facility] Address:[address] [place], [place] [address]Performed By: #### 58803-4 ####[facility] LABCLIA [id number] [place], [place] [address]Tirqnmsmpzt (Bld) [#/Vol]0.32 10*3/uLNormal<0.46[facility] on above:Order Comment: Specimen Type: BLOOD SPECIMENOrdering Facility: [facility] Address:[address] [place], [place] [address]Performed By: #### 98606-6 ####[facility] LABIA [id number] [place], [place] [address]Zjgkclxqmdy/100 WBC (Bld)3.0 %NormalJ.W. Ruby [facility] Hospital on above:Order Comment: Specimen Type: BLOOD SPECIMENOrdering Facility: [facility] Address:[address] [place], [place] [address]Performed By: #### 37699-1 ####[facility] LABCLIA [id number] [place], [place] [address]Oouuogmbqhk distribution width (RBC) [Ratio]15.8 %High 11.5-15.0[facility] on above:Order Comment: Specimen Type: BLOOD SPECIMENOrdering Facility: [facility] Address:[address] [place], [place] [address]Performed By: #### 89251-7 ####[facility] LABIA [id number] [place] [address] Hematocrit (Bld) [Volume fraction]41.5 %Ehsulh21.0-51.0[facility] on above:Order Comment: Specimen Type: BLOOD SPECIMENOrdering Facility: [facility] Address:[address] [place], [place] [address]Performed By: #### 28252-5 ####[facility] LABIA [id number] [place], [place] [address]Sdajycyzwp (Bld) [Mass/Vol]12.7 g/dLLow13.0-17.0[facility] on above:Order Comment: Specimen Type: BLOOD SPECIMENOrdering Facility: [facility] Address:[address] [place], [place] [address]Performed By: #### 84311-7 ####[facility] LABIA [id number] [place], [place] [address]Ktsnrcbv granulocytes (Bld) [#/Vol]0.07 10*3/uLNormal <0.10[facility] on above:Order Comment: Specimen Type: BLOOD SPECIMENOrdering Facility: [facility] Address:[address] [place], [place] [address]Performed By: #### 59221-4 ####[facility] LABIA [id number] [place], [place] [address]Fjcstrik granulocytes/100 WBC (Bld)0.7 %NormalJ.W. Ruby [facility] Hospital on above: Order Comment: Specimen Type: BLOOD SPECIMENOrdering Facility: [facility] Address:[address] [place], [place] [address]Performed By: #### 32638- 8 ####[facility] LABIA [id number] [place], [place] [address]Utwepugliow (Bld) [#/Vol]1.05 10*3/uLNormal1.00-4.00 [facility] on above:Order Comment: Specimen Type: BLOOD SPECIMENOrdering Facility: [facility] Address:[address] [place], [place] [address]Performed By: #### 51453-9 ####[facility] LABCLIA [id number] [place], [place] [address]Lyoppbkoogw/100 WBC (Bld)9.8 %NormalJ.W. Ruby [facility] Hospital on above:Order Comment: Specimen Type: BLOOD SPECIMENOrdering Facility: [facility] Address:[address] [place], [place] [address]Performed By: #### 45448-2 ####[facility] LABCLIA [id number] [place], [place] [address]VTS (RBC) [Entitic mass]28.0 iqJiaone85.0-34.0[facility] on above:Order Comment: Specimen Type: BLOOD SPECIMENOrdering Facility: [facility] Address:[address] [place], [place] [address]Performed By: #### 36916-7 ####[facility] LABCLIA [id number] [place], [place] [address]ZCOH (RBC) [Mass/Vol]30.6 g/nCMtkyip20.5-36.0[facility] on above: Order Comment: Specimen Type: BLOOD SPECIMENOrdering Facility: [facility] Address:[address] [place], [place] [address]Performed By: #### 03130- 8 ####[facility] LABCLIA [id number] [place], [place] [address]INK (RBC) [Entitic vol]91.6 tUGeebce50.0-100.0[facility] on above:Order Comment: Specimen Type: BLOOD SPECIMENOrdering Facility: [facility] Address:[address] [place], [place] [address]Performed By: #### 10103-8 ####[facility] LABIA [id number] [place], [place] [address]Abhtucqcd (Bld) [#/Vol]0.78 10*3/uLNormal<0.87[facility] on above:Order Comment: Specimen Type: BLOOD SPECIMENOrdering Facility: [facility] Address:[address] [place], [place] [address]Performed By: #### 11903- 8 ####[facility] LABCLIA [id number] [place], [place] [address]Xtcmlcwrg/100 WBC (Bld)7.3 %NormalJ.W. Ruby [facility] Hospital on above:Order Comment: Specimen Type: BLOOD SPECIMENOrdering Facility: [facility] Address:[address] [place], [place] [address]Performed By: #### 16714-6 ####[facility] LABCLIA [id number] [place], [place] [address]Kqetevgpcda (Bld) [#/Vol]8.34 10*3/uLHigh1.45-7.50[facility] on above:Order Comment: Specimen Type: BLOOD SPECIMENOrdering Facility: [facility] Address:[address] [place], [place] [address]Performed By: #### 79627-1 ####[facility] LABIA [id number] [place], [place] [address]Jgrsoddqokg/100 WBC (Bld)78.1 %NormalJ.W. Ruby [facility] Hospital on above:Order Comment: Specimen Type: BLOOD SPECIMENOrdering Facility: [facility] Address:[address] [place], [place] [address]Performed By: #### 38199-3 ####[facility] LABCLIA [id number] [place], [place] [address]Rtmzsojtx RBC (Bld) [#/Vol] 10*3/uLNormal<0.01[facility] on above:Order Comment: Specimen Type: BLOOD SPECIMENOrdering Facility: [facility] Address:[address] [place], [place] [address]Performed By: #### 68336-6 ####[facility] LABCLIA [id number] [place], [place] [address]Vnlzbuyli RBC/100 WBC (Bld) [Ratio]0.0 /100 WBCNormal [facility] on above:Order Comment: Specimen Type: BLOOD SPECIMENOrdering Facility: [facility] Address:[address] [place], [place] [address]Performed By: #### 15341-0 ####[facility] LABCLIA [id number] [place], [place] [address]Xylpvpao mean volume (Bld) [Entitic vol]9.4 fLNormal9.0-12.7CProtestant Hospital on above:Order Comment: Specimen Type: BLOOD SPECIMENOrdering Facility: [facility] Address:[address] [place] [address] Performed By: #### 22144-6 ####[facility] LABCLIA [id number] [place], [place] [address]Zaizrudci (Bld) [#/Vol]325 10*3/jZPaymyn600-435JavdnhxuyJ.W. [facility] Hospital on above:Order Comment: Specimen Type: BLOOD SPECIMENOrdering Facility: [facility] Address:[address] [place], [place] [address]Performed By: #### 12090-8 ####[facility] LABCLIA [id number] [place], [place] [address]LJH (Bld) [#/Vol]4.53 10*6/uLNormal4.20-6.00[facility] on above:Order Comment: Specimen Type: BLOOD SPECIMENOrdering Facility: [facility] Address:[address] [place], [place] [address]Performed By: #### 82124-3 ####[facility] LABCLIA [id number] [place], [place] [address]KKU (Bld) [#/Vol]10.68 10*3/uLNormal3.70-11.00[facility] on above: Order Comment: Specimen Type: BLOOD SPECIMENOrdering Facility: [facility] Address:[address] [place], [place] [address]Ygokzqmop By: #### 90795- 8 ####[facility] LABCLIA [id number] [place], [place] [address]UXX CBC W AUTO DIFF BLDon 62-09-9629Pmzylizng/100 WBC (Bld)1.1 %[facility] BASOPHILS # BLD AUTO0.12HighNITennova Healthcare DIFFERENTIAL METHOD BLDAutoNOMShriners Hospitals for ChildrenF EOSINOPHIL # BLD AUTO0.32NITennova Healthcare LYMPHOCYTES # BLD AUTO1.05[facility] MONOCYTES # BLD AUTO 0.78NITennova Healthcare NEUTROPHILS # BLD AUTO8.34HighResearch Psychiatric Center NRBC # BLD AUTO<0.01NITennova Healthcare NRBC/100 WBC BLD-RTO0/100 WBCResearch Psychiatric Center PLATELET # BLD [id number] Psychiatric Center PMV BLD AUTO9.4 fL9.0 - 12.7 fLResearch Psychiatric Center WBC # BLD AUTO10.68NOMetropolitan Saint Louis Psychiatric CenterEosinophils/100 WBC (Bld)3 %[facility] Sports MedicineErythrocyte distribution width (RBC) [Ratio]15.8 %High 11.5 - 15.0 %[facility] Sports MedicineHematocrit (Bld) [Volume fraction]41.5 %39.0 - 51.0 %[facility] Sports MedicineHemoglobin (Bld) [Mass/Vol]12.7 g/dLLow13.0 - 17.0 g/dLMercy McCune-Brooks Hospital GRANULOCYTES # BLD AUTO0.07NINFMercy McCune-Brooks Hospital GRANULOCYTES/LEUK NFR BLD AUTO0.7 %[facility] Sports MedicineInterpretation and review of laboratory resultsAbnormClarion HospitalLymphocytes/100 WBC (Bld)9.8 %[facility] CenterH (RBC) [Entitic mass]28 pg26.0 - 34.0 pgNOGolden Valley Memorial HospitalHC (RBC) [Mass/Vol]30.6 g/dL30.5 - 36.0 g/dLFreeman Orthopaedics & Sports MedicineMCV (RBC) [Entitic vol]91.6 fL 80.0 - 100.0 fLFreeman Orthopaedics & Sports MedicineMonocytes/100 WBC (Bld)7.3 %[facility] Neutrophils/100 WBC (Bld)78.1 %[facility] & Sports MedicineRBC (Bld) [#/Vol]4.53 10*6/uL4.20 - 6.00 m/uLFreeman Orthopaedics & Sports MedicineSpecimen Type: BLOOD SPECIMEN [facility] Address: [address] [place] [address] Original Ordering Provider: HOLLY TARIQMayo Clinic Health System– NorthlandOVSPon [id number] () Office ([place]) MAK GARCES ([id number]) 1955 [address]* Date Time Provider Department 05/20/24 9:00 AM HOLLY TANG During your visit today, we recorded the following information about you: Temperature Pulse Respiration Blood pressure 97.9 degrees 82/minute 16/minute 161/93 Weight Height 124.7 kg 1.88 m Holly Tang PA-C 05/20/2024 8:51 AM Signed PATIENT NAME: Mak Garces DATE: 05/20/2024 PRIMARY CARE PHYSICIAN: Dr. Romulo Clark OTHER PHYSICIANS: Dr. 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 INTERIM HISTORY: Mak returns for follow up. He remains on Hydrea 500 mg BID. He has been having more and more issues with his eye and he is seeing ophthalmology laer today to discuss surgery. He also has an appointment with dermatology for a spot on his left neck that his daughter says is getting bigger. MEDICATIONS: levocetirizine 5 mg tablet Take 5 mg by mouth. hydroxyurea (HYDREA) 500 mg capsule Take 1 capsule by mouth two times a day. cefTAZidime ophthlamic solution 5% (50 mg/mL) (IP-CPD) Use 1 Drop in the right eye two times a day. BABY ASPIRIN ORAL Take by mouth. erythromycin (ROMYCIN) 5 mg/gram (0.5 %) ophthalmic ointment apply into right eye at bedtime fluoride, sodium, (DENTA-GEL) 1.1 % gel use to BRUSH TEETH 3 to 5 MINUTES once daily polyvinyl alcohol-povidone (REFRESH) 1.4-0.6 % ophthalmic solution 1 drop into affected eye as needed ascorbic acid, vitamin C, (VITAMIN C) 500 mg tablet Take 1,000 mg by mouth once daily. levothyroxine (SYNTHROID) 150 mcg tablet Take 1 tablet by mouth once daily. fluticasone (FLONASE) 50 mcg/actuation nasal spray tamsulosin (FLOMAX) 0.4 mg Take 0.4 mg by mouth daily at bedtime. carboxymethylcellulose (REFRESH TEARS) 0.5 % drop Use 1 Drop in both eyes as needed. 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 PAST SURGICAL HISTORY: PAST SURGICAL HISTORY Procedure Laterality Date CHOLECYSTECTOMY 2011 EPILATION OF TRICHIASIS, FORCEPS Right 04/18/2023 EYE SURGERY HX Left 01/17/2018 CONJUNCTIVOPLASTY, RECONSTRUCTION CUL-DE-SAC W/ BUCCAL GRAFT (Left EYE SURGERY PROCEDURE Right 10/10/2017 REVISION OR REPAIR OPERATIVE WOUND EYE ANTERIOR SEGMENT MAJOR OR MINOR KERATOPLASTY PENTRG EXCEPT APHAKIA/PSEUDOPHAKIA Right 09/12/2017 PK (Penetrating Keratoplasty) OCULAR SURFACE RECONSTRUCTION AMNIOTIC MEMBRANE REFRACTIVE SURGERY OD (RIGHT EYE) 08/01/2023 REVIEW OF SYSTEMS: General: No weight loss, malaise or fevers. HEENT: Negative for frequent or significant headaches. No changes in hearing, no nose bleeds or other nasal problems. Positive right eye issues. Respiratory: Negative for cough, wheezing or shortness of breath. Cardiovascular: Negative for chest pain, leg swelling or palpitations. GI: Negative for abdominal discomfort, blood in stools or black stools or change in bowel habits. : No history of dysuria, frequency or incontinence. Musculoskeletal: Negative for joint pain or swelling, back pain and muscle pain. Skin: +skin changes, spot on left neck Hematology/Lymphology: Negative for prolonged bleeding, bruising easily or swollen nodes. Neuro: No history of headaches, syncope, paralysis, seizures or tremors. PHYSICAL EXAM: Vitals: BP 161/93 Pulse 82 Temp 36.6 ?C (97.9 ?F) (Temporal) Resp 16 Ht 188 cm (6' 2.02 ) Wt 124.7 kg (274 lb 14.6 oz) SpO2 99% BMI 35.28 kg/m? ECOG 0 General: Alert and oriented, no distress, pleasant and cooperative. Heart: Regular, normal S1 and S2, no murmurs, rubs, or gallops Lungs: Clear to auscultation bilaterally Abdomen: Benign Extremities: Feet/ankles without edema, posterior tibial pulses full and symmetrical Skin: blacked 1 cm lesion posterior cervical chain region of his left neck PATHOLOGY: 04/16/2017 Biopsy right eye conjunctiva Small B cell neoplasm best classified as extranodal marginal zone lym (more content not included)...NormalWilson Memorial HospitalComprehensive metabolic 2000 panelon [id number] [Mass/Vol]4.2 g/dLNormal3.9-4.9CProtestant Hospital on above:Order Comment: Specimen Type: BLOOD SPECIMENOrdering Facility: [facility] Address:[address] [place], [place] [address]Performed By: #### 60087-1 ####SAUK RAPIDSBHAVYA [facility] LABCLIA [id number] [place] [address]QHR [Catalytic activity/Vol]99 U/FRbdlbv44-564MpdistelzJ.W. [facility] Hospital on above:Order Comment: Specimen Type: BLOOD SPECIMENOrdering Facility: [facility] Address:[address] [place], [place] [address]Performed By: #### 12574-8 ####[facility] LABCLIA [id number] [place] [address]VZM [Catalytic activity/Vol]11 U/NHzynbw49-42ZffeywnzrJ.W. [facility] Hospital on above:Order Comment: Specimen Type: BLOOD SPECIMENOrdering Facility: [facility] Address:[address] [place], [place] [address]Performed By: #### 75461-1 ####[facility] LABCLIA [id number] [facility] [place], [place] [address]Bwppy gap [Moles/Vol]12 mmol/LNormal8-15[facility] on above:Order Comment: Specimen Type: BLOOD SPECIMENOrdering Facility: [facility] Address:[address] [place], [place] [address]Performed By: #### 48195- 8 ####[facility] LABCLIA [id number] [place] [address]VJD [Catalytic activity/Vol]18 U/KWlzclf91-30YspyjjpllJ.W. [facility] on above:Order Comment: Specimen Type: BLOOD SPECIMENOrdering Facility: [facility] Address:[address] [place], [place] [address]Performed By: #### 19462-7 ####[facility] LABCLIA [id number] [facility] [place] [place], [place] [address]Pqljjlvlv [Mass/Vol]0.5 mg/dLNormal0.2-1.3CProtestant Hospital on above:Order Comment: Specimen Type: BLOOD SPECIMENOrdering Facility: [facility] Address:[address] [place], [place] [address]Performed By: #### 02506- 8 ####[facility] LABCLIA [id number] [facility] [place], [place] [address]Pwmgzlp [Mass/Vol]8.8 mg/dLNormal8.5-10.2CProtestant Hospital on above:Order Comment: Specimen Type: BLOOD SPECIMENOrdering Facility: [facility] Address:[address] [place], [place] [address]Performed By: #### 25184-6 ####[facility] LABCLIA [id number] [place], [place] [address]Rcoyamgt [Moles/Vol]97 mmol/L Dby04-112GpkcbzzzeJ.W. Ruby Memorial Hospital on above:Order Comment: Specimen Type: BLOOD SPECIMENOrdering Facility: [facility] Address:[address] [place], [place] [address]Performed By: #### 86145-0 ####[facility] LABCLIA [id number] [place] [address] CO2 [Moles/Vol]26 mmol/LVachws09-75FtkxakwsqJ.W. [facility] on above: Order Comment: Specimen Type: BLOOD SPECIMENOrdering Facility: [facility] Address:[address] [place], [place] [address]Performed By: #### 77215- 8 ####[facility] LABCLIA [id number] [place], [place] [address]Ovahjocfjy [Mass/Vol]0.97 mg/dLNormal0.73-1.22[facility] on above:Order Comment: Specimen Type: BLOOD SPECIMENOrdering Facility: [facility] Address:[address] [place], [place] [address]Performed By: #### 49369-5 ####[facility] LABIA [id number] [place], [place] [address]Cqqnfqrgff and Glomerular filtration rate.predicted panel (S/P/Bld)86 mL/min/1.73m???Normal>=60 [facility] on above:Order Comment: Specimen Type: BLOOD SPECIMENOrdering Facility: [facility] Address:[address] [place], [place] [address]Vxpbdg Comment: Estimated Glomerular Filtration Rate (eGFR) is calculated using the 2020 CKD-EPI creatinine equation. This equation utilizes serum creatinine, sex, and age as parameters. The creatinine assay has traceable calibration to isotope dilution-mass spectrometry. Refer to KDIGO guidelines for clinical interpretation. In patients with unstable renal function, e.g. those with acute kidney injury, the eGFR may not accurately reflect actual GFR.Performed By: #### 38426-7 ####[facility] LABCLIA [id number] [place], [place] [address]Ddlawpr [Mass/Vol]107 mg/cGCstc57-15DhvuzxpafJ.W. [facility] on above:Order Comment: Specimen Type: BLOOD SPECIMENOrdering Facility: [facility] Address:[address] [place] [address]Ntijfd Comment: The [place] Diabetes Association (ADA) provides guidance for cutoff values for fast ing glucose and random glucose. The ADA defines fasting as no caloric intake for at least 8 hours. Fasting plasma glucose results between 100 to 125 mg/dL indicate increased risk for diabetes (prediabetes). Fasting plasma glucose results greater than or equal to 126 mg/dL meet the criteria for diagnosis of diabetes. In the absence of unequivocal hyperglycemia, results should be confirmed by repeat testing. In a patient with classic symptoms of hyperglycemia or hyperglycemic crisis, random plasma glucose results greater than or equal to 200 mg/dL meet the criteria for diagnosis of diabetes. Reference: Standards of Medical Care in Diabetes 2016, [place] [employer] Association. Diabetes Care. 2016.39(Suppl 1).Performed By: #### 66032-6 ####[facility] LABCLIA [id number] [place], [place] [address]Bykrizagj [Moles/Vol]3.7 mmol/LNormal3.7-5.1CProtestant Hospital on above:Order Comment: Specimen Type: BLOOD SPECIMENOrdering Facility: [facility] Address:[address] [place], [place] [address]Kgfyywxpg By: #### 57898-7 ####[facility] LABCLIA [id number] [place], [place] [address]Ubwjwpg [Mass/Vol]7.3 g/dLNormal6.3-8.0[facility] on above:Order Comment: Specimen Type: BLOOD SPECIMENOrdering Facility: [facility] Address:[address] [place], [place] [address]Performed By: #### 17972- 8 ####[facility] LABCLIA [id number] [place], [place] [address]Mcfvfn [Moles/Vol]135 mmol/BDmo538-130KshokkrknJ.W. [facility] on above:Order Comment: Specimen Type: BLOOD SPECIMENOrdering Facility: [facility] Address:[address] [place], [place] [address]Performed By: #### 40884-8 ####[facility] LABCLIA [id number] [place], [place] [address]Xkkl nitrogen [Mass/Vol]8 mg/dL Low9-24[facility] on above:Order Comment: Specimen Type: BLOOD SPECIMENOrdering Facility: [facility] Address:[address] [place], [place] [address]Performed By: #### 93975-0 ####[facility] LABIA [id number] [place], [place] [address]AMIQMPFAA OF TRICHIASIS, FORCEPSon [id number] ClinicNo Panel Informationon 03-20-0914Eria of biopsy: tangential Informed consent: discussed and consent obtained Informed consent comment: The risks and benefits of the biopsy were discussed. Risks include but are not limited to bleeding, infection, scarring, pain, and nerve damage. An opportunity to ask questions prior to the procedure was permitted and all questions were answered. Patient was prepped and draped in usual sterile fashion: area cleansed with alcohol. Anesthesia: the lesion was anesthetized in a standard fashion Anesthetic: 1% lidocaine w/ epinephrine 1-100,000 buffered w/ 8.4% NaHCO3 Instrument used: DermaBlade Hemostasis achieved with: electrodesiccation Outcome: patient tolerated procedure well Outcome comment: The specimen was placed in a prelabeled formalin container to be sent for pathology Post-procedure details: sterile dressing applied and wound care instructions given Post-procedure details comment: Emphasized need to contact clinic for any signs of infection, uncontrollable bleeding, or complications. Dressing type: bandage Additional details: Photo taken Amount of lidocaine used: 1.0 [facility] CenterType [facility]: tangential Informed consent: discussed and consent obtained Informed consent comment: The risks and benefits of the biopsy were discussed. Risks include but are not limited to bleeding, infection, scarring, pain, and nerve damage. An opportunity to ask questions prior to the procedure was permitted and all questions were answered. Patient was prepped and draped in usual sterile fashion: area cleansed with alcohol. Anesthesia: the lesion was anesthetized in a standard fashion Anesthetic: 1% lidocaine w/ epinephrine 1-100,000 buffered w/ 8.4% NaHCO3 Instrument used: DermaBlade Hemostasis achieved with: electrodesiccation Outcome: patient tolerated procedure well Outcome comment: The specimen was placed in a prelabeled formalin container to be sent for pathology Post-procedure details: sterile dressing applied and wound care instructions given Post-procedure details comment: Emphasized need to contact clinic for any signs of infection, uncontrollable bleeding, or complications. Dressing type: bandage Additional details: Photo taken Amount of lidocaine used: 1.0 [facility] HealthcareType of biopsy: tangential Informed consent: discussed and consent obtained Informed consent comment: The risks and benefits of the biopsy were discussed. Risks include but are not limited to bleeding, infection, scarring, pain, and nerve damage. An opportunity to ask questions prior to the procedure was permitted and all questions were answered. Patient was prepped and draped in usual sterile fashion: area cleansed with alcohol. Anesthesia: the lesion was anesthetized in a standard fashion Anesthetic: 1% lidocaine w/ epinephrine 1-100,000 buffered w/ 8.4% NaHCO3 Instrument used: DermaBlade Hemostasis achieved with: electrodesiccation Outcome: patient tolerated procedure well Outcome comment: The specimen was placed in a prelabeled formalin container to be sent for pathology Post-procedure details: sterile dressing applied and wound care instructions given Post-procedure details comment: Emphasized need to contact clinic for any signs of infection, uncontrollable bleeding, or complications. Dressing type: bandage Additional details: Photo taken Amount of lidocaine used: 1.0 [facility] CenterType of biopsy: tangential Informed consent: discussed and consent obtained Informed consent comment: The risks and benefits were discussed. Risks include, but are not limited to, bleeding, infection, scarring, pain, & nerve damage. An opportunity to ask questions prior to the procedure was permitted and questions were answered. Patient was prepped and draped in usual sterile fashion: Area cleansed with alcohol. Anesthesia: the lesion was anesthetized in a standard fashion Anesthetic: 1% lidocaine w/ epinephrine 1-100,000 buffered w/ 8.4% NaHCO3 Instrument used: DermaBlade Hemostasis achieved with: suture and electrodesiccation Outcome: patient tolerated procedure well Post-procedure details: sterile dressing applied and wound care instructions given Post-procedure details comment: Emphasized the need to contact clinic for any signs of infection, uncontrollable bleeding, or complications. Dressing type: bandage Additional details: Amount of lidocaine used: 1.0 cc Photo takenFormerly Vidant Beaufort HospitalCNPNon 03-20-4322DIKJLjnoqpqjh (OPHTMN) MAK GARCES ([id number]) 1955 [address]* Date Time Provider Department 05/16/24 GABO FUCHS During your visit today, we recorded the following information about you: Ruben Nieves 05/16/2024 9:01 AM Signed LV: 01/15/24 FV: 08/26/24 Phone: () Patient reports that since OD has been opened up he is having pain (2-3) he has been taking Tylenol and Advil on and off to help with pain. Office notes and photo's where requested from [facility], Dr. Reilly. Please advise. Gabo Fuchs MD filed at 01/15/2024 11:04 AM Status: Signed Encounter Diagnosis ICD-10-CM 1. 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 Trichiasis of right lower eyelid H02.052 Neurotrophic keratoconjunctivitis, right eye - linezolid/ceftaz eyedrops BID OD as ocean transportation intermediary prophylaxis - s/p PKP x4 (most recent 08/05/21) - vascularized graft but defer steroids as no benefit - Now s/p many repeat suture tarsorrhaphy OD (most recent 10/2023, Dr. Cool) - today with PEEs, no epi defect on graft. Trichiatic upper lashes. - continue ceftaz BID OD - return 6 months Shivam Carrero MD Ophthalmology Resident epilate LLL continue follow-up with Dr. Cool for trichiasis -- if possible would continue to remove lashes as much as tolerated follow-up me 6 months va iop ou I have confirmed and edited as necessary the relevant ophthalmic history, ROS, and the neuro exam findings as obtained by others. I have seen and examined this patient. I have discussed the case and the management of this patient's care with the Resident/Fellow, if applicable. I also have reviewed and agree with the assessment and plan as stated above and agree with all of its relevant components. MD Ezequiel Hughes Tina-Marie 05/16/2024 10:18 AM Signed Update: OD has started leaking fluid Ruben Nieves 05/16/2024 10:25 AM Signed Patient is on his way in and will be here around 12:30. He has been scheduled with instructions to page Dr. Roy. Allergies As of Date: 05/16/2024 Noted Allergy Reaction LIV INHIBITORS 10/05/2014 3 - Cough Date Reviewed: 05/16/2024 Reviewed by: Nitin Gomes OA - Fully Assessed Reason for Visit: Patient Update [1234] Prescriptions as of 05/19/2024 - levocetirizine 5 mg tablet Take 5 mg by mouth. - hydroxyurea (HYDREA) 500 mg capsule Take 1 capsule by mouth two times a day. - cefTAZidime ophthlamic solution 5% (50 mg/mL) (IP-CPD) Use 1 Drop in the right eye two times a day. - BABY ASPIRIN ORAL Take by mouth. - erythromycin (ROMYCIN) 5 mg/gram (0.5 %) ophthalmic ointment apply into right eye at bedtime - fluoride, sodium, (DENTA-GEL) 1.1 % gel use to BRUSH TEETH 3 to 5 MINUTES once daily - polyvinyl alcohol-povidone (REFRESH) 1.4-0.6 % ophthalmic solution 1 drop into affected eye as needed - ascorbic acid, vitamin C, (VITAMIN C) 500 mg tablet Take 1,000 mg by mouth once daily. - levothyroxine (SYNTHROID) 150 mcg tablet Take 1 tablet by mouth once daily. - fluticasone (FLONASE) 50 mcg/actuation nasal spray - tamsulosin (FLOMAX) 0.4 mg Take 0.4 mg by mouth daily at bedtime. - carboxymethylcellulose (REFRESH TEARS) 0.5 % drop Use 1 Drop in both eyes as needed. 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] 05/09/2017 Radiation dermatitis [L58.9] 07/03/2017 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] 09/11/2017 09/14/2017 S/P PKP (penetrating keratoplasty) [Z94.7] 09/14/2017 Neurotrophic keratoconjunctivitis of right eye *10/09/2017 Exposure keratoconjunctivitis, right [H16.211] 10/09/2017 Rupture of operation wound [T81.31XA] 10/09/2017 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*12/12/2017 Exposure keratoconjunctivitis of right eye [H16*12/12/2017 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] 05/08/2018 Radiation induced cataract [H26.8] 09/30/2019 Preoperative examination [Z01.818] 04/05/2021 Corneal scar, 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] 04/05/2021 Total, 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.89] 04/05/2021 Central corneal ulcer of right eye [H16.011] 05/11/2022 Conjunctival abrasion, right, initial encounter*05/11/2022 Trichiasis of right upper eyelid [H02.051] 05/11/2022 Encounter Status:Closed by DIMA COLLINS, (more content not included)...Normal [facility] HospitalCNPNon [id number] ([place]) MAK GARCES ([id number]) 1955 [address]* Date Time Provider Department 04/14/24 TAYLOR KHALIL During your visit today, we recorded the following information about you: Taylor Khalil RN 04/14/2024 11:58 AM Signed Pt called upset stating, I am not able to [facility], and they won't send my prescription. [facility]. Pt has a refill available. Verified mailing address and phone with them, while pt was also called to verify everything. Pt will receive medication in 3-5 days. Pt reports he has approximately 10 left on hand. Should pt have any problems in the future, please call [phone] (customer service) Taylor Khalil RN Allergies As of Date: 04/14/2024 Noted Allergy Reaction LIV INHIBITORS 10/05/2014 3 - Cough Date Reviewed: 02/26/2024 Reviewed by: Vannesa Woodward MA - Fully Assessed Reason for Visit: Hydrea RX problems with refill [Other] Prescriptions as of 04/14/2024 - hydroxyurea (HYDREA) 500 mg capsule Take 1 capsule by mouth two times a day. - cefTAZidime ophthlamic solution 5% (50 mg/mL) (IP-CPD) Use 1 Drop in the right eye two times a day. - BABY ASPIRIN ORAL Take by mouth. - erythromycin (ROMYCIN) 5 mg/gram (0.5 %) ophthalmic ointment apply into right eye at bedtime - fluoride, sodium, (DENTA-GEL) 1.1 % gel use to BRUSH TEETH 3 to 5 MINUTES once daily - polyvinyl alcohol-povidone (REFRESH) 1.4-0.6 % ophthalmic solution 1 drop into affected eye as needed - ascorbic acid, vitamin C, (VITAMIN C) 500 mg tablet Take 1,000 mg by mouth once daily. - levothyroxine (SYNTHROID) 150 mcg tablet Take 1 tablet by mouth once daily. - fluticasone (FLONASE) 50 mcg/actuation nasal spray - tamsulosin (FLOMAX) 0.4 mg Take 0.4 mg by mouth daily at bedtime. - carboxymethylcellulose (REFRESH TEARS) 0.5 % drop Use 1 Drop in both eyes as needed. 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] 05/09/2017 Radiation dermatitis [L58.9] 07/03/2017 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] 09/11/2017 09/14/2017 S/P PKP (penetrating keratoplasty) [Z94.7] 09/14/2017 Neurotrophic keratoconjunctivitis of right eye *10/09/2017 Exposure keratoconjunctivitis, right [H16.211] 10/09/2017 Rupture of operation wound [T81.31XA] 10/09/2017 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 W Auto Differential panel (Bld)on [id number] (Bld) [#/Vol] 0.14 10*3/uLHigh<0.11CProtestant Hospital on above:Order Comment: Specimen Type: BLOOD SPECIMENOrdering Facility: [facility] Address:[address] [place], [place] [address]Performed By: #### 90248-0 ####[facility] LABCLIA [id number] [place], [place] [address]Gxxkxdqwx/100 WBC (Bld)1.5 %NormalJ.W. Ruby [facility] Hospital on above:Order Comment: Specimen Type: BLOOD SPECIMENOrdering Facility: [facility] Address:[address] [place], [place] [address]Performed By: #### 13081-5 ####[facility] LABCLIA [id number] [place], [place] [address]Ikbpukzjziuv cell count method Nom (Bld)AutoNormalClevelasheville specialty hospital Clinic ClevelandComment on above:Order Comment: Specimen Type: BLOOD SPECIMENOrdering Facility: [facility] Address:[address] [place], [place] [address]Performed By: #### 89139-9 ####[facility] LABIA [id number] [place], [place] [address]Bycwqcqxrot (Bld) [#/Vol]0.23 10*3/uLNormal<0.46[facility] on above:Order Comment: Specimen Type: BLOOD SPECIMENOrdering Facility: [facility] Address:[address] [place], [place] [address]Performed By: #### 72081-0 ####[facility] LABIA [id number] [place], [place] [address]Pxyvtjrfbyp/100 WBC (Bld)2.5 %NormalJ.W. Ruby Memorial Hospital on above:Order Comment: Specimen Type: BLOOD SPECIMENOrdering Facility: [facility] Address:[address] [place], [place] [address]Performed By: #### 77748-5 ####[facility] LABIA [id number] [place], [place] [address]Uihlyqzcqpo distribution width (RBC) [Ratio]16.0 %High 11.5-15.0[facility] on above:Order Comment: Specimen Type: BLOOD SPECIMENOrdering Facility: [facility] Address:[address] [place], [place] [address]Performed By: #### 18965-0 ####[facility] LABIA [id number] [place] [address] Hematocrit (Bld) [Volume fraction]41.6 %Qgnneq80.0-51.0[facility] on above:Order Comment: Specimen Type: BLOOD SPECIMENOrdering Facility: [facility] Address:[address] [place], [place] [address]Performed By: #### 08631-7 ####[facility] LABCLIA [id number] [place], [place] [address]Snexojiltj (Bld) [Mass/Vol]12.9 g/dLLow13.0-17.0[facility] on above:Order Comment: Specimen Type: BLOOD SPECIMENOrdering Facility: [facility] Address:[address] [place], [place] [address]Performed By: #### 03257-5 ####[facility] LABCLIA [id number] [place], [place] [address]Zufhmtxe granulocytes (Bld) [#/Vol]0.05 10*3/uLNormal <0.10[facility] on above:Order Comment: Specimen Type: BLOOD SPECIMENOrdering Facility: [facility] Address:[address] [place], [place] [address]Performed By: #### 15967-6 ####[facility] LABIA [id number] [place], [place] [address]Tgqhcfbk granulocytes/100 WBC (Bld)0.6 %NormalJ.W. Ruby [facility] Hospital on above: Order Comment: Specimen Type: BLOOD SPECIMENOrdering Facility: [facility] Address:[address] [place], [place] [address]Performed By: #### 08467- 8 ####[facility] LABCLIA [id number] [place], [place] [address]Heqgqkjmpmy (Bld) [#/Vol]1.01 10*3/uLNormal1.00-4.00 [facility] on above:Order Comment: Specimen Type: BLOOD SPECIMENOrdering Facility: [facility] Address:[address] [place], [place] [address]Performed By: #### 00903-3 ####[facility] LABCLIA [id number] [place], [place] [address]Ymsgicwijpw/100 WBC (Bld)11.1 %NormalJ.W. Ruby [facility] Hospital on above:Order Comment: Specimen Type: BLOOD SPECIMENOrdering Facility: [facility] Address:[address] [place], [place] [address]Performed By: #### 89796-2 ####[facility] LABCLIA [id number] [place], [place] [address]HJG (RBC) [Entitic mass]28.2 ipEgyhlv82.0-34.0[facility] on above:Order Comment: Specimen Type: BLOOD SPECIMENOrdering Facility: [facility] Address:[address] [place], [place] [address]Performed By: #### 61729-8 ####[facility] LABIA [id number] [place], [place] [address]LTPO (RBC) [Mass/Vol]31.0 g/qCSexomf81.5-36.0[facility] on above: Order Comment: Specimen Type: BLOOD SPECIMENOrdering Facility: [facility] Address:[address] [place], [place] [address]Performed By: #### 91151- 8 ####[facility] LABIA [id number] [place], [place] [address]PHD (RBC) [Entitic vol]91.0 eVGdfykc73.0-100.0[facility] on above:Order Comment: Specimen Type: BLOOD SPECIMENOrdering Facility: [facility] Address:[address] [place], [place] [address]Performed By: #### 40383-0 ####[facility] LABIA [id number] [place], [place] [address]Mqwljlzpc (Bld) [#/Vol]0.67 10*3/uLNormal<0.87[facility] on above:Order Comment: Specimen Type: BLOOD SPECIMENOrdering Facility: [facility] Address:[address] [place], [place] [address]Performed By: #### 60885- 8 ####[facility]ENTERMAR[facility]ER[facility] LABCLIA [id number] [place], [place] [address]Visjhkles/100 WBC (Bld)7.4 %NormalJ.W. [facility] Hospital on above:Order Comment: Specimen Type: BLOOD SPECIMENOrdering Facility: [facility] Address:[address] [place], [place] [address]Performed By: #### 44955-2 ####[facility] LABCLIA [id number] [place], [place] [address]Hxjtfayovho (Bld) [#/Vol]6.96 10*3/uLNormal1.45-7.50[facility] on above:Order Comment: Specimen Type: BLOOD SPECIMENOrdering Facility: [facility] Address:[address] [place], [place] [address]Performed By: #### 41490-1 ####[facility] LABCLIA [id number] [place], [place] [address]Waokkhijawh/100 WBC (Bld)76.9 %NormalJ.W. [facility] Hospital on above:Order Comment: Specimen Type: BLOOD SPECIMENOrdering Facility: [facility] Address:[address] [place], [place] [address]Performed By: #### 74954-7 ####[facility] LABCLIA [id number] [place], [place] [address]Vzekhlmbu RBC (Bld) [#/Vol] 10*3/uLNormal<0.01[facility] on above:Order Comment: Specimen Type: BLOOD SPECIMENOrdering Facility: [facility] Address:[address] [place], [place] [address]Performed By: #### 06185-5 ####[facility] LABCLIA [id number] [place], [place] [address]Ghqjbfzby RBC/100 WBC (Bld) [Ratio]0.0 /100 WBCNormal [facility] on above:Order Comment: Specimen Type: BLOOD SPECIMENOrdering Facility: [facility] Address:[address] [place], [place] [address]Performed By: #### 88369-7 ####[facility] LABCLIA [id number] [place], [place] [address]Alhankbq mean volume (Bld) [Entitic vol]10.2 fLNormal9.0-12.7CProtestant Hospital on above:Order Comment: Specimen Type: BLOOD SPECIMENOrdering Facility: [facility] Address:[address] [place] [address] Performed By: #### 58417-8 ####[facility] LABCLIA [id number] [place], [place] [address]Wdxhhityq (Bld) [#/Vol]279 10*3/yCLdtujq424-622XyxkwwfdjJ.W. [facility] on above:Order Comment: Specimen Type: BLOOD SPECIMENOrdering Facility: [facility] Address:[address] [place], [place] [address]Performed By: #### 38402-6 ####[facility] LABCLIA [id number] [place], [place] [address]BZM (Bld) [#/Vol]4.57 10*6/uLNormal4.20-6.00[facility] on above:Order Comment: Specimen Type: BLOOD SPECIMENOrdering Facility: [facility] Address:[address] [place], [place] [address]Performed By: #### 19956-6 ####[facility] LABIA [id number] [place], [place] [address]PRU (Bld) [#/Vol]9.06 10*3/uLNormal3.70-11.00[facility] on above: Order Comment: Specimen Type: BLOOD SPECIMENOrdering Facility: [facility] Address:[address] [place], [place] [address]Performed By: #### 40342- 8 ####[facility] LABCLIA [id number] [place], [place] [address]TAM CBC W AUTO DIFF BLDon 08-30-9922Uincpvqxc/100 WBC (Bld)1.5 %[facility] NorthlandF BASOPHILS # BLD AUTO0.14HighNINFResearch Psychiatric Center DIFFERENTIAL METHOD BLDAutoNOMShriners Hospitals for ChildrenF EOSINOPHIL # BLD AUTO0.23NITennova Healthcare ClevelandF LYMPHOCYTES # BLD AUTO1.01[facility]landF MONOCYTES # BLD AUTO 0.67NINFResearch Psychiatric Center NEUTROPHILS # BLD AUTO6.96NOSalem Memorial District HospitalF NRBC # BLD AUTO<0.01NITennova Healthcare ClevelandF NRBC/100 WBC BLD-RTO0/100 WBCFreeman Orthopaedics & Sports Medicine CCF PLATELET # BLD YIPL111WKZIProgress West Hospital PMV BLD AUTO10.2 fL9.0 - 12.7 fL [facility] WBC # BLD AUTO9.06NOMetropolitan Saint Louis Psychiatric CenterEosinophils/100 WBC (Bld)2.5 %[facility]opaedics & Sports MedicineErythrocyte distribution width (RBC) [Ratio]16 %High11.5 - 15.0 %[facility]ics & Sports MedicineHematocrit (Bld) [Volume fraction]41.6 %39.0 - 51.0 %[facility]edics & Sports MedicineHemoglobin (Bld) [Mass/Vol]12.9 g/dLLow13.0 - 17.0 g/dLFreeman Orthopaedics & Sports Medicine IMM GRANULOCYTES # BLD AUTO0.05NIRegionalOne Health Center GRANULOCYTES/LEUK NFR BLD AUTO0.6 %[facility] Sports MedicineInterpretation and review of laboratory resultsAbnormal [facility] & Sports MedicineLymphocytes/100 WBC (Bld)11.1 %[facility] Rehabilitation CenterH (RBC) [Entitic mass]28.2 pg26.0 - 34.0 pgNOGolden Valley Memorial HospitalHC (RBC) [Mass/Vol]31 g/dL30.5 - 36.0 g/dLMissouri Rehabilitation CenterV (RBC) [Entitic vol]91 fL80.0 - 100.0 fLNOMetropolitan Saint Louis Psychiatric Center Monocytes/100 WBC (Bld)7.4 %[facility] Sports MedicineNeutrophils/100 WBC (Bld)76.9 %[facility]ics & Sports MedicineRBC (Bld) [#/Vol]4.57 10*6/uL4.20 - 6.00 /MICHELETMetropolitan Saint Louis Psychiatric CenterSpecimen Type: BLOOD SPECIMEN [facility] Address: [address], [place] [id number] Original Ordering Provider: HOLLY GusmanCNPNon [id number] (HEMASA) MAK GARCES ([id number]) 1955 [address] [facility]* Date Time Provider Department 04/08/24 TAYLOR KHALIL HEMBRENNON During your visit today, we recorded the following information about you: Taylor Khalil RN 04/08/2024 9:36 AM Signed ----- Message from Holly Tang PA-C sent at 04/08/2024 9:27 AM EST ----- Please call with hct results. No phleb at this time. Taylor Khalil RN 04/08/2024 9:36 AM Signed Pt waited for results following lab draw and aware no need at this time for phlebotomy. Taylor Khalil RN Allergies As of Date: 04/08/2024 Noted Allergy Reaction LIV INHIBITORS 10/05/2014 3 - Cough Date Reviewed: 02/26/2024 Reviewed by: Vannesa Woodward MA - Fully Assessed Prescriptions as of 04/08/2024 - hydroxyurea (HYDREA) 500 mg capsule Take 1 capsule by mouth two times a day. - cefTAZidime ophthlamic solution 5% (50 mg/mL) (IP-CPD) Use 1 Drop in the right eye two times a day. - BABY ASPIRIN ORAL Take by mouth. - erythromycin (ROMYCIN) 5 mg/gram (0.5 %) ophthalmic ointment apply into right eye at bedtime - fluoride, sodium, (DENTA-GEL) 1.1 % gel use to BRUSH TEETH 3 to 5 MINUTES once daily - polyvinyl alcohol-povidone (REFRESH) 1.4-0.6 % ophthalmic solution 1 drop into affected eye as needed - ascorbic acid, vitamin C, (VITAMIN C) 500 mg tablet Take 1,000 mg by mouth once daily. - levothyroxine (SYNTHROID) 150 mcg tablet Take 1 tablet by mouth once daily. - fluticasone (FLONASE) 50 mcg/actuation nasal spray - tamsulosin (FLOMAX) 0.4 mg Take 0.4 mg by mouth daily at bedtime. - carboxymethylcellulose (REFRESH TEARS) 0.5 % drop Use 1 Drop in both eyes as needed. 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] 05/09/2017 Radiation dermatitis [L58.9] 07/03/2017 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] 09/11/2017 09/14/2017 S/P PKP (penetrating keratoplasty) [Z94.7] 09/14/2017 Neurotrophic keratoconjunctivitis of right eye *10/09/2017 Exposure keratoconjunctivitis, right [H16.211] 10/09/2017 Rupture of operation wound [T81.31XA] 10/09/2017 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*12/12/2017 Exposure keratoconjunctivitis of right eye [H16*12/12/2017 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] 05/08/2018 Radiation induced cataract [H26.8] 09/30/2019 Preoperative examination [Z01.818] 04/05/2021 Corneal scar, 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] 04/05/2021 Total, 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.89] 04/05/2021 Central corneal ulcer of right eye [H16.011] 05/11/2022 Conjunctival abrasion, right, initial encounter*05/11/2022 Trichiasis of right upper eyelid [H02.051] 05/11/2022 Encounter Status:Closed by TAYLOR KHALIL on 04/08/24NormalCUniversity Hospitals Health SystemComprehensive metabolic 2000 panelon 70-89-9691Vdlsvto [Mass/Vol]4.1 g/dLNormal3.9-4.9CProtestant Hospital on above:Order Comment: Specimen Type: BLOOD SPECIMENOrdering Facility: [facility] Address:[address] [place], [place] [address]Performed By: #### 57907-9 ####[facility] LABCLIA [id number] [place], [place] [address]WQJ [Catalytic activity/Vol]93 U/ZObreny44-656SofqlauxtJ.W. [facility] Hospital on above:Order Comment: Specimen Type: BLOOD SPECIMENOrdering Facility: [facility] Address:[address] [place], [place] [address]Performed By: #### 18456-3 ####[facility] LABCLIA [id number] [place], [place] [address]OXO [Catalytic activity/Vol]12 U/KNgnbfr46-28HwkgboyksJ.W. [facility] Hospital on above:Order Comment: Specimen Type: BLOOD SPECIMENOrdering Facility: [facility] Address:[address] [place], [place] [address]Performed By: #### 28986- 8 ####[facility] LABCLIA [id number] [place], [place] [address]Tyzlc gap [Moles/Vol]10 mmol/LNormal8-15[facility] on above:Order Comment: Specimen Type: BLOOD SPECIMENOrdering Facility: [facility] Address:[address] [place], [place] [address]Performed By: #### 06096-3 ####[facility]ENTERMARIA [facility] LABCLIA [id number] [facility] JANETBANNER RE[facility] [place], [place] [address]TLC [Catalytic activity/Vol]18 U/WZksqdo65-91NrrmjgebqJ.W. [facility] on above:Order Comment: Specimen Type: BLOOD SPECIMENOrdering Facility: [facility] Address:[address] [place], [place] [address]Performed By: #### 88431-9 ####[facility] LABCLIA [id number] [facility] [place] [address] Bilirubin [Mass/Vol]0.4 mg/dLNormal0.2-1.3CProtestant Hospital on above:Order Comment: Specimen Type: BLOOD SPECIMENOrdering Facility: [facility] Address:[address] [place], [place] [address]Performed By: #### 68472-1 ####RANINVMARIA FERNA[facility]DA [facility] LABCLIA [id number] [facility] LEANNCONCEPCIONBR[place], [place] [address]Fpuhbyy [Mass/Vol]8.6 mg/dLNormal8.5-10.2CProtestant Hospital on above:Order Comment: Specimen Type: BLOOD SPECIMENOrdering Facility: [facility] Address:[address] [place], [place] [address]Performed By: #### 12522-2 ####[facility]ENTERMAR[facility] LABCLIA [id number] [facility] LEANNCONCEPCIONBANNER RE[facility] [place], [place] [address]Vnfaqucv [Moles/Vol]98 mmol/NTrjrow42-320RucdzqztaJ.W. [facility] Hospital on above:Order Comment: Specimen Type: BLOOD SPECIMENOrdering Facility: [facility] Address:[address] [place], [place] [address]Performed By: #### 33999- 8 ####[facility] LABCLIA [id number] [facility] LEANN FOWLERBANNER RE[facility] [place], [place] [address]LG5 [Moles/Vol]25 mmol/JTgdiua64-53FrdrcswgfJ.W. [facility] on above:Order Comment: Specimen Type: BLOOD SPECIMENOrdering Facility: [facility] Address:[facility] [place], [place] [address]Kpmbqraku By: #### 44713-6 ####[facility] LABIA [id number] [place], [place] [address]Femhtsklbk [Mass/Vol]0.92 mg/dL Normal0.73-1.22[facility] on above:Order Comment: Specimen Type: BLOOD SPECIMENOrdering Facility: [facility] Address:[address] [place], [place] [address]Performed By: #### 60896-9 ####[facility] LABIA [id number] [place], [place] [address]Gylvyhedfb and Glomerular filtration rate.predicted panel (S/P/Bld)91 mL/min/1.73m???Normal>=60[facility] on above:Order Comment: Specimen Type: BLOOD SPECIMENOrdering Facility: [facility] Address:[address] [place], [place] [address]Result Comment: Estimated Glomerular Filtration Rate (eGFR) is calculated using the 2020 CKD-EPI creatinine equation. This equation utilizes serum creatinine, sex, and age as parameters. The creatinine assay has traceable calibration to isotope dilution- mass spectrometry. Refer to KDIGO guidelines for clinical interpretation. In patients with unstable renal function, e.g. those with acute kidney injury, the eGFR may not accurately reflect actual GFR.Performed By: #### 17830-8 ####[facility] LABIA [id number] [place], [place] [address]Qqhvsyi [Mass/Vol]115 mg/wBVoiy30-24YlhkbfvplJ.W. [facility] on above:Order Comment: Specimen Type: BLOOD SPECIMENOrdering Facility: [facility] Address:[address] [place], [place] [address]Result Comment: The [place] Diabetes Association (ADA) provides guidance for cutoff values for fasting glucose and random glucose. The ADA defines fasting as no caloric intake for at least 8 hours. Fasting plasma glucose results between 100 to 125 mg/dL indicate increased risk for diabetes (prediab etes). Fasting plasma glucose results greater than or equal to 126 mg/dL meet the criteria for diagnosis of diabetes. In the absence of unequivocal hyperglycemia, results should be confirmed by repeat testing. In a patient with classic symptoms of hyperglycemia or hyperglycemic crisis, random plasma glucose results greater than or equal to 200 mg/dL meet the criteria for diagnosis of diabetes. Reference: Standards of Medical Care in Diabetes 2016, [place] [employer] Association. Diabetes Care. 2016.39(Suppl 1).Performed By: #### 83014-0 ####[facility] LABCLIA [id number] [place], [place] [address]Fgqaynbry [Moles/Vol]4.2 mmol/LNormal3.7-5.1CProtestant Hospital on above:Order Comment: Specimen Type: BLOOD SPECIMENOrdering Facility: [facility] Address:[address] [place], [place] [address]Performed By: #### 20463-4 ####[facility] LABIA [id number] [place], [place] [address]Qbpfaxw [Mass/Vol]7.2 g/dLNormal6.3-8.0[facility] on above:Order Comment: Specimen Type: BLOOD SPECIMENOrdering Facility: [facility] Address:[address] [place], [place] [address]Performed By: #### 91365- 8 ####[facility] LABCLIA [id number] [place], [place] [address]Rucprz [Moles/Vol]133 mmol/JEhx572-985WmobyxktgJ.W. [facility] on above:Order Comment: Specimen Type: BLOOD SPECIMENOrdering Facility: [facility] Address:[address] [place], [place] [address]Performed By: #### 19539-9 ####[facility] LABIA [id number] [place], [place] [address]Kjnn nitrogen [Mass/Vol]6 mg/dL Low9-24[facility] on above:Order Comment: Specimen Type: BLOOD SPECIMENOrdering Facility: [facility] Address:[address] [place], [place] [address]Performed By: #### 98866-7 ####[facility] LABIA [id number] [place], [place] [address]NUI W Auto Differential panel (Bld)on [id number] (Bld) [#/Vol]0.14 10*3/uL High<0.11[facility] on above:Order Comment: Specimen Type: BLOOD SPECIMENOrdering Facility: [facility] Address:[address] [place], [place] [address]Performed By: #### [id number] ####[facility] LABIA [id number] [place] [address] Basophils/100 WBC (Bld)1.4 %NormalJ.W. [facility] on above: Order Comment: Specimen Type: BLOOD SPECIMENOrdering Facility: [facility] Address:[address] [place], [place] [address]Performed By: #### [id number]- 8 ####[facility] LABIA [id number] [place], [place] [address]Dhtcyottvzmf cell count method Nom (Bld)AutoNormal [facility] on above:Order Comment: Specimen Type: BLOOD SPECIMENOrdering Facility: [facility] Address:[address] [place], [place] [address]Performed By: #### 29241-0 ####[facility] LABIA [id number] [place], [place] [address]Xgtdimfzqft (Bld) [#/Vol]0.26 10*3/uLNormal<0.46[facility] on above: Order Comment: Specimen Type: BLOOD SPECIMENOrdering Facility: [facility] Address:[address] [place], [place] [address]Performed By: #### [id number]- 8 ####[facility] LABCLIA [id number] [place], [place] [address]Zxiohtocjno/100 WBC (Bld)2.7 %NormalJ.W. [facility] on above:Order Comment: Specimen Type: BLOOD SPECIMENOrdering Facility: [facility] Address:[address] [place], [place] [address]Performed By: #### 38802-0 ####[facility] LABCLIA [id number] [place], [place] [address]Dzarsojipqz distribution width (RBC) [Ratio]15.3 %High11.5-15.0[facility] on above:Order Comment: Specimen Type: BLOOD SPECIMENOrdering Facility: [facility] Address:[address] [place], [place] [address]Performed By: #### 33111- 8 ####[facility] LABCLIA [id number] [place], [place] [address]Xyebgogitc (Bld) [Volume fraction]45.5 %Vgyeiw23.0-51.0 [facility] on above:Order Comment: Specimen Type: BLOOD SPECIMENOrdering Facility: [facility] Address:[address] [place], [place] [address]Performed By: #### 10430-9 ####[facility] LABCLIA [id number] [place], [place] [address]Wxfbzkazhb (Bld) [Mass/Vol]14.1 g/lEFsigqn13.0-17.0[facility] on above: Order Comment: Specimen Type: BLOOD SPECIMENOrdering Facility: [facility] Address:[address] [place], [place] [address]Performed By: #### 23161- 8 ####[facility] LABCLIA [id number] [place], [place] [address]Bnhvdvfj granulocytes (Bld) [#/Vol]0.06 10*3/uLNormal <0.10[facility] on above:Order Comment: Specimen Type: BLOOD SPECIMENOrdering Facility: [facility] Address:[address] [place], [place] [address]Performed By: #### 98735-2 ####[facility] LABCLIA [id number] [place], [place] [address]Xmnyxaul granulocytes/100 WBC (Bld)0.6 %NormalJ.W. [facility] on above: Order Comment: Specimen Type: BLOOD SPECIMENOrdering Facility: [facility] Address:[address] [place], [place] [address]Performed By: #### 10880- 8 ####[facility] LABCLIA [id number] [place], [place] [address]Nlgpidctlfv (Bld) [#/Vol]1.00 10*3/uLNormal1.00-4.00 [facility] on above:Order Comment: Specimen Type: BLOOD SPECIMENOrdering Facility: [facility] Address:[address] [place], [place] [address]Performed By: #### 15332-8 ####[facility] LABIA [id number] [place], [place] [address]Cejvryiedup/100 WBC (Bld)10.3 %NormalJ.W. [facility] on above:Order Comment: Specimen Type: BLOOD SPECIMENOrdering Facility: [facility] Address:[address] [place], [place] [address]Performed By: #### 35806-0 ####[facility] LABIA [id number] [place], [place] [address]NJF (RBC) [Entitic mass]28.0 flXrviwy67.0-34.0[facility] on above:Order Comment: Specimen Type: BLOOD SPECIMENOrdering Facility: [facility] Address:[address] [place], [place] [address]Performed By: #### 36746-3 ####[facility] LABIA [id number] [place], [place] [address]NYKU (RBC) [Mass/Vol]31.0 g/wKTjbjnh74.5-36.0[facility] on above: Order Comment: Specimen Type: BLOOD SPECIMENOrdering Facility: [facility] Address:[address] [place], [place] [address]Performed By: #### 12018- 8 ####[facility] LABCLIA [id number] [place], [place] [address]UXY (RBC) [Entitic vol]90.3 vZFwlujj78.0-100.0[facility] on above:Order Comment: Specimen Type: BLOOD SPECIMENOrdering Facility: [facility] Address:[address] [place], [place] [address]Performed By: #### 06883-2 ####[facility] LABCLIA [id number] [place], [place] [address]Ivdrimbmu (Bld) [#/Vol]0.58 10*3/uLNormal<0.87[facility] on above:Order Comment: Specimen Type: BLOOD SPECIMENOrdering Facility: [facility] Address:[address] [place], [place] [address]Performed By: #### 83920- 8 ####[facility] LABCLIA [id number] [place], [place] [address]Bdrdbruus/100 WBC (Bld)6.0 %NormalJ.W. [facility] on above:Order Comment: Specimen Type: BLOOD SPECIMENOrdering Facility: [facility] Address:[address] [place], [place] [address]Performed By: #### 16499-0 ####[facility] LABCLIA [id number] [place], [place] [address]Sptsggxtcub (Bld) [#/Vol]7.70 10*3/uLHigh1.45-7.50[facility] on above:Order Comment: Specimen Type: BLOOD SPECIMENOrdering Facility: [facility] Address:[address] [place], [place] [address]Performed By: #### 15714-9 ####[facility] LABCLIA [id number] [place], [place] [address]Dwdswpsymws/100 WBC (Bld)79.0 %NormalJ.W. [facility] on above:Order Comment: Specimen Type: BLOOD SPECIMENOrdering Facility: [facility] Address:[address] [place], [place] [address]Performed By: #### 09063-5 ####[facility] LABCLIA [id number] [place], [place] [address]Hrgwfgfys RBC (Bld) [#/Vol] 10*3/uLNormal<0.01[facility] on above:Order Comment: Specimen Type: BLOOD SPECIMENOrdering Facility: [facility] Address:[address] [place], [place] [address]Performed By: #### 45804-2 ####[facility] LABCLIA [id number] [place], [place] [address]Uamvexznc RBC/100 WBC (Bld) [Ratio]0.0 /100 WBCNormal [facility] on above:Order Comment: Specimen Type: BLOOD SPECIMENOrdering Facility: [facility] Address:[address] [place], [place] [address]Performed By: #### 12802-5 ####[facility] LABIA [id number] [place], [place] [address]Cxyuoabz mean volume (Bld) [Entitic vol]10.0 fLNormal9.0-12.7CProtestant Hospital on above:Order Comment: Specimen Type: BLOOD SPECIMENOrdering Facility: [facility] Address:[address] [place] [address] Performed By: #### 08535-0 ####[facility] LABIA [id number] [place], [place] [address]Tijyywcey (Bld) [#/Vol]416 10*3/wYKjei922-832BtvuysifyJ.[facility]. [facility] on above:Order Comment: Specimen Type: BLOOD SPECIMENOrdering Facility: [facility] Address:[address] [place], [place] [address]Performed By: #### 45216-0 ####[facility] LABCLIA [id number] [place], [place] [address]XJX (Bld) [#/Vol]5.04 10*6/uLNormal4.20-6.00[facility] on above:Order Comment: Specimen Type: BLOOD SPECIMENOrdering Facility: [facility] Address:[address] [place], [place] [address]Performed By: #### 89576-1 ####[facility] LABCLIA [id number] [place], [place] [address]OLP (Bld) [#/Vol]9.74 10*3/uLNormal3.70-11.00[facility] on above: Order Comment: Specimen Type: BLOOD SPECIMENOrdering Facility: [facility] Address:[address] [place], [place] [address]Performed By: #### 01945- 8 ####[facility] LABCLIA [id number] [place], [place] [address]KOK CBC W AUTO DIFF BLDon 03-77-6465Ndkgqvovm/100 WBC (Bld)1.4 %[facility] BASOPHILS # BLD AUTO0.14HighNITennova Healthcare DIFFERENTIAL METHOD BLDAutoNOMS [facility] EOSINOPHIL # BLD AUTO0.26NITennova Healthcare LYMPHOCYTES # BLD SFOM8EYGUProgress West Hospital MONOCYTES # BLD AUTO0.58 NINColumbia Regional Hospital NEUTROPHILS # BLD AUTO7.7HAurora S[facility] NRBC # BLD AUTO<0.01NITennova Healthcare NRBC/100 WBC BLD-RTO0/100 WBCFreeman Orthopaedics & Sports Medicine CC PLATELET # BLD [id number] HealthcareCCF PMV BLD AUTO10 fL9.0 - 12.7 fL [facility] HealthcareCCF WBC # BLD AUTO9.74NOMetropolitan Saint Louis Psychiatric CenterEosinophils/100 WBC (Bld)2.7 %NOMS HealthcareErythrocyte distribution width (RBC) [Ratio]15.3 %High11.5 - 15.0 %[facility]OMS HealthcareHematocrit (Bld) [Volume fraction]45.5 %39.0 - 51.0 %NOMCooper County Memorial HospitalHemoglobin (Bld) [Mass/Vol]14.1 g/dL13.0 - 17.0 g/dLFreeman Orthopaedics & Sports MedicineIMM GRANULOCYTES # BLD AUTO0.06NINFDoctors Hospital of SpringfieldM GRANULOCYTES/LEUK NFR BLD AUTO0.6 %[facility] HealthcareInterpretation and review of laboratory resultsAbnormal [facility]opa[facility]ics & Sports MedicineLymphocytes/100 WBC (Bld)10.3 %[facility]opaedics & Sports MedicineMCH (RBC) [Entitic mass]28 pg26.0 - 34.0 pgFreeman Orthopaedics & Sports MedicineMCHC (RBC) [Mass/Vol]31 g/dL30.5 - 36.0 g/dLFreeman Orthopaedics & Sports MedicineMCV (RBC) [Entitic vol]90.3 fL80.0 - 100.0 fLFreeman Orthopaedics & Sports Medicine Monocytes/100 WBC (Bld)6 %[facility] HealthcareNeutrophils/100 WBC (Bld)79 %[facility] HealthcareRBC (Bld) [#/Vol]5.04 10*6/uL4.20 - 6.00 /[facility] HealthcareSpecimen Type: BLOOD SPECIMEN [facility] Address: [address] [place] [address] Original Ordering Provider: HOLLY JENKINSFreeman Orthopaedics & Sports MedicineCNOVSPon [id number] ([place]) Office ([place]) MAK GARCES ([id number]) 1955 [address]* Date Time Provider Department 02/26/24 8:30 AM HOLLY TANG During your visit today, we recorded the following information about you: Temperature Pulse Respiration Blood pressure 97.7 degrees 84/minute 16/minute 151/94 Weight Height 124 kg 1.88 m Holly Tang PA-C 02/26/2024 9:07 AM Signed PATIENT NAME: Mak Garces DATE: 02/26/2024 PRIMARY CARE PHYSICIAN: Dr. Romulo Clark OTHER PHYSICIANS: Dr. 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 INTERIM HISTORY: Mak returns today for follow up. His eye is still healing, follows up with Ophthalmology twice a year. His vision remains the same. He has no new issues. He still has skin lesions from the Hydrea that he reports are mildly pruritic. He remains on Hydrea 500 mg twice a day. MEDICATIONS: hydroxyurea (HYDREA) 500 mg capsule Take 1 capsule by mouth two times a day. cefTAZidime ophthlamic solution 5% (50 mg/mL) (IP-CPD) Use 1 Drop in the right eye two times a day. BABY ASPIRIN ORAL Take by mouth. erythromycin (ROMYCIN) 5 mg/gram (0.5 %) ophthalmic ointment apply into right eye at bedtime fluoride, sodium, (DENTA-GEL) 1.1 % gel use to BRUSH TEETH 3 to 5 MINUTES once daily polyvinyl alcohol-povidone (REFRESH) 1.4-0.6 % ophthalmic solution 1 drop into affected eye as needed ascorbic acid, vitamin C, (VITAMIN C) 500 mg tablet Take 1,000 mg by mouth once daily. levothyroxine (SYNTHROID) 150 mcg tablet Take 1 tablet by mouth once daily. fluticasone (FLONASE) 50 mcg/actuation nasal spray tamsulosin (FLOMAX) 0.4 mg Take 0.4 mg by mouth daily at bedtime. carboxymethylcellulose (REFRESH TEARS) 0.5 % drop Use 1 Drop in both eyes as needed. 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 PAST SURGICAL HISTORY: PAST SURGICAL HISTORY Procedure Laterality Date CHOLECYSTECTOMY 2011 EPILATION OF TRICHIASIS, FORCEPS Right 04/18/2023 EYE SURGERY HX Left 01/17/2018 CONJUNCTIVOPLASTY, RECONSTRUCTION CUL-DE-SAC W/ BUCCAL GRAFT (Left EYE SURGERY PROCEDURE Right 10/10/2017 REVISION OR REPAIR OPERATIVE WOUND EYE ANTERIOR SEGMENT MAJOR OR MINOR KERATOPLASTY PENTRG EXCEPT APHAKIA/PSEUDOPHAKIA Right 09/12/2017 PK (Penetrating Keratoplasty) OCULAR SURFACE RECONSTRUCTION AMNIOTIC MEMBRANE REFRACTIVE SURGERY OD (RIGHT EYE) 08/01/2023 REVIEW OF SYSTEMS: General: No weight loss, malaise or fevers. HEENT: Negative for frequent or significant headaches. No changes in hearing, no nose bleeds or other nasal problems. Positive right eye issues. Respiratory: Negative for cough, wheezing or shortness of breath. Cardiovascular: Negative for chest pain, leg swelling or palpitations. GI: Negative for abdominal discomfort, blood in stools or black stools or change in bowel habits. : No history of dysuria, frequency or incontinence. Musculoskeletal: Negative for joint pain or swelling, back pain and muscle pain. Skin: +skin changes Hematology/Lymphology: Negative for prolonged bleeding, bruising easily or swollen nodes. Neuro: No history of headaches, syncope, paralysis, seizures or tremors. PHYSICAL EXAM: Vitals: BP 151/94 Pulse 84 Temp 36.5 ?C (97.7 ?F) (Temporal) Resp 16 Ht 188 cm (6' 2.02 ) Wt 124 kg (273 lb 5.9 oz) SpO2 99% BMI 35.08 kg/m? ECOG 0 General: Alert and oriented, no distress, pleasant and cooperative. Heart: Regular, normal S1 and S2, no murmurs, rubs, or gallops Lungs: Clear to auscultation bilaterally Abdomen: Benign Extremities: Feet/ankles without edema, posterior tibial pulses full and symmetrical PATHOLOGY: 04/16/2017 Biopsy right eye conjunctiva Small B cell neoplasm best classified as extranodal marginal zone lymphoma. LABORATORY DATA: Hemoglobin (g/dL) Date Value 02/26/2024 14.1 06/24/2021 12.1 Hematocrit (%) Date Value 02/26/2024 45.5 06/24/2021 40.2 W (more content not included)...NormalRiverside Methodist Hospitalprehensive metabolic 2000 panelon 33-26-1040Bbjijpu [Mass/Vol]4.4 g/dLNormal3.9-4.9 [facility] on above:Order Comment: Specimen Type: BLOOD SPECIMENOrdering Facility: [facility] Address:[address] [place], [place] [address]Performed By: #### 07728-3 ####[facility] LABCLIA [id number] [place], [place] [address]TBB [Catalytic activity/Vol]108 U/TPlawcx00-435QihafylunJ.W. [facility] on above:Order Comment: Specimen Type: BLOOD SPECIMENOrdering Facility: [facility] Address:[address] [place], [place] [address]Performed By: #### 53210- 8 ####[facility] LABCLIA [id number] [place], [place] [address]ESH [Catalytic activity/Vol]15 U/TBmiejr34-52QizlhnrycJ.W. [facility] on above:Order Comment: Specimen Type: BLOOD SPECIMENOrdering Facility: [facility] Address:[address] [place], [place] [address]Performed By: #### 49382-8 ####[facility] LABCLIA [id number] [place], [place] [address]Qnemv gap [Moles/Vol]11 mmol/LNormal8-15[facility] on above:Order Comment: Specimen Type: BLOOD SPECIMENOrdering Facility: [facility] Address:[address] [place], [place] [address]Performed By: #### 66163- 8 ####[facility] LABCLIA [id number] [facility] [place], [place] [address]FOC [Catalytic activity/Vol]26 U/EAwgvto87-06CbdstdqgeJ.W. [facility] on above:Order Comment: Specimen Type: BLOOD SPECIMENOrdering Facility: [facility] Address:[address] [place], [place] [address]Performed By: #### 46946-5 ####[facility] LABCLIA [id number] [place], [place] [address]Ruhdsdean [Mass/Vol]0.5 mg/dLNormal0.2-1.3CProtestant Hospital on above:Order Comment: Specimen Type: BLOOD SPECIMENOrdering Facility: [facility] Address:[address] [place], [place] [address]Performed By: #### 54829- 8 ####[facility] LABCLIA [id number] [facility] [place], [place] [address]Mmepyyf [Mass/Vol]9.0 mg/dLNormal8.5-10.2CProtestant Hospital on above:Order Comment: Specimen Type: BLOOD SPECIMENOrdering Facility: [facility] Address:[address] [place], [place] [address]Performed By: #### 93047-9 ####[facility] LABCLIA [id number] [place], [place] [address]Mowlqtyy [Moles/Vol]98 mmol/L Bczntc36-108OjpfengxcJ.W. [facility] on above:Order Comment: Specimen Type: BLOOD SPECIMENOrdering Facility: [facility] Address:[address] [place], [place] [address]Performed By: #### 05632-2 ####[facility] LABCLIA [id number] [place] [address] CO2 [Moles/Vol]24 mmol/YYxagad18-04YteyblepuJ.W. [facility] on above: Order Comment: Specimen Type: BLOOD SPECIMENOrdering Facility: [facility] Address:[address] [place] [address]Vvqntmuvr By: #### 21685- 8 ####[facility] LABCLIA [id number] [facility] [place], [place] [address]Umrrlwcdvc [Mass/Vol]1.04 mg/dLNormal0.73-1.22[facility] on above:Order Comment: Specimen Type: BLOOD SPECIMENOrdering Facility: [facility] Address:[address] [place], [place] [address]Performed By: #### 47190-1 ####[facility] LABCLIA [id number] [place], [place] [address]Rwbmaacsxe and Glomerular filtration rate.predicted panel (S/P/Bld)79 mL/min/1.73m???Normal>=60 [facility] on above:Order Comment: Specimen Type: BLOOD SPECIMENOrdering Facility: [facility] Address:[address] [place], [place] [address]Result Comment: Estimated Glomerular Filtration Rate (eGFR) is calculated using the 2020 CKD-EPI creatinine equation. This equation utilizes serum creatinine, sex, and age as parameters. The creatinine assay has traceable calibration to isotope dilution-mass spectrometry. Refer to KDIGO guidelines for clinical interpretation. In patients with unstable renal function, e.g. those with acute kidney injury, the eGFR may not accurately reflect actual GFR.Performed By: #### 29789-1 ####[facility] LABCLIA [id number] [place], [place] [address]Xpnxdpx [Mass/Vol]94 mg/aNTiytby31-40AhhvdnyggJ.W. [facility] on above:Order Comment: Specimen Type: BLOOD SPECIMENOrdering Facility: [facility] Address:[address] [place], [place] [address]Result Comment: The [place] Diabetes Association (ADA) provides guidance for cutoff values for fast ing glucose and random glucose. The ADA defines fasting as no caloric intake for at least 8 hours. Fasting plasma glucose results between 100 to 125 mg/dL indicate increased risk for diabetes (prediabetes). Fasting plasma glucose results greater than or equal to 126 mg/dL meet the criteria for diagnosis of diabetes. In the absence of unequivocal hyperglycemia, results should be confirmed by repeat testing. In a patient with classic symptoms of hyperglycemia or hyperglycemic crisis, random plasma glucose results greater than or equal to 200 mg/dL meet the criteria for diagnosis of diabetes. Reference: Standards of Medical Care in Diabetes 2016, [place] Diabetes Association. Diabetes Care. 2016.39(Suppl 1).Performed By: #### 78259-4 ####[facility] LABCLIA [id number] [place], [place] [address]Xvzlmsjlf [Moles/Vol]4.0 mmol/LNormal3.7-5.1CProtestant Hospital on above:Order Comment: Specimen Type: BLOOD SPECIMENOrdering Facility: [facility] Address:[address] [place], [place] [address]Performed By: #### 64117-9 ####[facility] LABIA [id number] [place], [place] [address]Nstybgl [Mass/Vol]8.0 g/dLNormal6.3-8.0[facility] on above:Order Comment: Specimen Type: BLOOD SPECIMENOrdering Facility: [facility] Address:[address] [place], [place] [address]Performed By: #### 30018- 8 ####[facility] LABCLIA [id number] [place], [place] [address]Akcgig [Moles/Vol]133 mmol/POpx413-654RmdblolzdJ.W. [facility] on above:Order Comment: Specimen Type: BLOOD SPECIMENOrdering Facility: [facility] Address:[address] [place], [place] [address]Performed By: #### 67907-3 ####[facility] LABIA [id number] [place], [place] [address]Fizt nitrogen [Mass/Vol]8 mg/dL Low9-24Wilson Memorial HospitalComment on above:Order Comment: Specimen Type: BLOOD SPECIMENOrdering Facility: [facility] Address:[address] [place], [place] [address]Tcydnjwlv By: #### 87330-3 ####[facility] LABCLIA [id number] [place], [place] [address]XILYXCYJA OF TRICHIASIS, FORCEPSon 10-24-2308Pzsmvtoog ClinicCCF CBC W AUTO DIFF BLDon 82-57-7917Dkzhohheb/100 WBC (Bld)1.3 %[facility] BASOPHILS # BLD AUTO 0.15[facility] [place] DIFFERENTIAL METHOD BLDAutoNOMI[facility] EOSINOPHIL # BLD AUTO0.22NITennova Healthcare LYMPHOCYTES # BLD AUTO1.02[facility] MONOCYTES # BLD AUTO0.80NITennova Healthcare NEUTROPHILS # BLD AUTO9.17[facility] NRBC # BLD AUTO<0.01NITennova Healthcare NRBC/100 WBC BLD-RTO0.0/100 WBCResearch Psychiatric Center PLATELET # BLD [id number] Psychiatric Center PMV BLD AUTO9.0 fL9.0 - 12.7 fLResearch Psychiatric Center WBC # BLD AUTO 11.44HighFreeman Orthopaedics & Sports MedicineEosinophils/100 WBC (Bld)1.9 %[facility]opaedics & Sports MedicineErythrocyte distribution width (RBC) [Ratio]14.5 %11.5 - 15.0 %[facility]opa[facility]ics & Sports MedicineHematocrit (Bld) [Volume fraction]43.2 %39.0 - 51.0 %[facility]ics & Sports MedicineHemoglobin (Bld) [Mass/Vol]13.5 g/dL13.0 - 17.0 g/dLMercy McCune-Brooks Hospital GRANULOCYTES # BLD AUTO 0.08NIRegionalOne Health Center GRANULOCYTES/LEUK NFR BLD AUTO0.7 %[facility] Interpretation and review of laboratory resultsAbnormClarion Hospital Lymphocytes/100 WBC (Bld)8.9 %[facility] & Sports MedicineMCH (RBC) [Entitic mass]28.2 pg26.0 - 34.0 pgMissouri Rehabilitation CenterHC (RBC) [Mass/Vol]31.3 g/dL30.5 - 36.0 g/dLMissouri Rehabilitation CenterV (RBC) [Entitic vol]90.2 fL80.0 - 100.0 fLFreeman Orthopaedics & Sports Medicine Monocytes/100 WBC (Bld)7.0 %[facility] HealthcareNeutrophils/100 WBC (Bld)80.2 %NOMS HealthcareRBC (Bld) [#/Vol]4.79 10*6/uL4.20 - 6.00 [facility] HospitalSpecimen Type: BLOOD SPECIMEN [facility] Address: [address] [place] [address] Original Ordering Provider: HOLLY TRUJILLOMetropolitan Saint Louis Psychiatric CenterEPILATION OF TRICHIASIS, FORCEPSon 26-80-8205Bgqnmmvsj [facility]. Gabriel HospitalCBC W Auto Differential panel (Bld)on 46-36-2115Fgdgkggnx (Bld) [#/Vol]0.11 10*3/uLHighNINFSelect Medical [facility] Clinic [facility] Basophils/100 WBC (Bld)0.9 %[facility], [facility] ShawDifferential cell count method Nom (Bld)AutoCleveland ClinicEosinophils (Bld) [#/Vol]0.35 10*3/uLNINFSelect Medical [facility] Clinic Rehabilitation Hospital, Edwin ShawEosinophils/100 WBC (Bld)2.9 %[facility] Hospital, Edwin ShawErythrocyte distribution width (RBC) [Ratio]13.8 %11.5 - 15.0 %[facility], Edwin ShawHematocrit (Bld) [Volume fraction]40.5 %39.0 - 51.0 %[facility], [facility] ShawHemoglobin (Bld) [Mass/Vol]12.7 g/dL Low13.0 - 17.0 g/dLSelect Medical Cleveland Clinic Rehabilitation Hospital, Edwin ShawImmature granulocytes (Bld) [#/Vol]0.07 10*3/uLNINFSelect Medical [facility] Clinic [facility], Edwin ShawImmature granulocytes/100 WBC (Bld)0.6 %[facility], [facility] ShawInterpretation and review of laboratory resultsAbnormalCPremier Health Miami [facility] Lymphocytes (Bld) [#/Vol]1.04 10*3/uLSelect Medical Cleveland Clinic Rehabilitation Hospital, Edwin ShawLymphocytes/100 WBC (Bld) 8.7 %[facility] Memorial HospitalH (RBC) [Entitic mass]28.4 pg26.0 - 34.0 pgClevelEssentia HealthHC (RBC) [Mass/Vol]31.4 g/dL30.5 - 36.0 g/dLSelect Medical Cleveland Clinic Rehabilitation Hospital, Edwin ShawMCV (RBC) [Entitic vol]90.6 fL80.0 - 100.0 fLCPremier Health Miami Valley Hospital SouthMonocytes (Bld) [#/Vol]0.93 10*3/uLHighNINFSelect Medical [facility], Edwin ShawMonocytes/100 WBC (Bld)7.8 %[facility] Neutrophils (Bld) [#/Vol]9.43 10*3/uLSuburban Community [facility] HospitalNeutrophils/100 WBC (Bld)79.1 %[facility] ShawNucleated RBC (Bld) [#/Vol]NINFCPremier Health Miami [facility] Hospital South Nucleated RBC/100 WBC (Bld) [Ratio]0.0 %/100 WBCSelect Medical [facility] Clinic Rehabilitation Hospital, Edwin ShawPlatelet mean volume (Bld) [Entitic vol]9.8 fL9.0 - 12.7 fLCPremier Health Miami Valley Hospital SouthPlatelets (Bld) [#/Vol]348 10*3/uLSelect Medical [facility] Hospital, Edwin ShawRBC (Bld) [#/Vol]4.47 10*6/uL4.20 - 6.00 m/uL [facility], [facility] ShawWBC (Bld) [#/Vol]11.93 10*3/uLUniversity Hospitals Beachwood Medical CenterComprehensive metabolic 2000 panelOrdered By: Shea Cool on 08-28-2023 Albumin [Mass/Vol]3.9 g/dL3.9 - 4.9 g/dLPaonia ClinicALP [Catalytic activity/Vol]128 U/LHigh38 - 113 U/LCleveland ClinicALT [Catalytic activity/Vol] 27 U/L10 - 54 U/LCleveland ClinicAnion gap [Moles/Vol]11 mmol/L9 - 18 mmol/L Paonia ClinicAST [Catalytic activity/Vol]27 U/L14 - 40 U/[facility] Bilirubin [Mass/Vol]0.7 mg/dL0.2 - 1.3 mg/dLPaonia ClinicCalcium [Mass/Vol] 8.7 mg/dL8.5 - 10.2 mg/dLPaonia ClinicChloride [Moles/Vol]102 mmol/L97 - 105 mmol/LCleveland ClinicCO2 [Moles/Vol]24 mmol/L22 - 30 mmol/LCleveland Clinic Creatinine [Mass/Vol]0.98 mg/dL0.73 - 1.22 mg/dLSelect Medical [facility], Edwin ShawGFR/1.73 sq M.predicted among non-blacks MDRD (S/P/Bld) [Vol rate/Area]85 mL/min/{1.73_m2}- PINFClevelCommunity Regional Medical CenterComment on above:Estimated Glomerular Filtration Rate (eGFR) is calculated using the 2020 CKD-EPI creatinine equation. This equation utilizes serum creatinine, sex, and age as parameters. The creatinine assay has traceable calibration to isotope dilution-mass spectrometry. Refer to KDIGO guidelines for clinical interpretation. In patients with unstable renal function, e.g. those with acute kidney injury, the eGFRmay not accurately reflect actual GFR.Glucose [Mass/Vol]99 mg/dL74 - 99 mg/dLSelect Medical [facility] Rehabilitation Hospital, Edwin ShawComment on above:The [place] Diabetes Association (ADA) provides guidance for cutoff values for fasting glucose andrandom glucose. The ADA defines fasting as no caloric intake for at least 8 hours. Fasting plasma glucose results between 100 to 125 mg/dL indicate increased risk for diabetes (prediabetes). Fasting plasma glucose results greater than or equal to 126 mg/dL meet the criteria for diagnosis of diabetes. In the absence of unequivocal hyperglycemia, results should be confirmed by repeat testing. In a patient with classic symptoms of hyperglycemia or hyperglycemic crisis, random plasma glucose results greater than or equal to 200 mg/dL meet the criteria for diagnosis of diabetes. Reference: Standards of Medical Care in Diabetes 2016, [place] [employer]. Diabetes Care. 2016.39(Suppl 1). Interpretation and review of laboratory resultsAbnormalCleveland ClinicPotassium [Moles/Vol]4.3 mmol/L3.7 - 5.1 mmol/LCleveland ClinicProtein [Mass/Vol]7.3 g/dL 6.3 - 8.0 g/dLPaonia ClinicSodium [Moles/Vol]137 mmol/L136 - 144 mmol/L Cooper ClinicUrea nitrogen [Mass/Vol]9 mg/dL9 - 24 mg/dLLakehealth Beachwood Medical CenterCA holter monitor recordingon [id number] holter monitor recordingAVITA [facility] Main [place] [id number] Holter Monitor Report Signed Patient: Mak Garces MR#: [id number] 6 : 1955 Acct:[id number] Age/Sex: 67 / M ADM Date: 08/03/23 Loc: Room: Type: [facility] Attending Dr: Romulo Clark DO Copies to: DO Rohan Juarez MD Ordering Provider: Romulo Clark DO Date of Service: 08/03/23 CA/CA holter monitor recording: g47.33,i10.r42 ORDERING: Romulo Clark DO CLINICAL INFORMATION: Syncope. The patient underwent 24-hour Holter monitoring for a history of syncope. The following observations were made: 1. Rhythm is sinus with heart rates ranging between 64 and 110 beats per minute. The average heart rate was 82 beats per minute. The longest pause was 1.3 seconds. 2. There were 2 isolated PVCs. 3. There were 14 supraventricular ectopic beats noted. These were predominantly isolated beats, although there was 1 couplet. 4. There were no symptoms reported during this recording. Transcribed By: AMINATA 08/09/23 1711 Dictated By: Rohan Galindo MD 08/08/23 1752 Signed By: 08/13/[address] [place] [address] Physician GroupECH echo transthoracicon [id number] echo transthoracicAVITA HEALTH SYSTEM [place] [address] Echocardiogram Signed Patient: Mak Garces MR#: [id number] 6 : 1955 Acct:[id number] Age/Sex: 67 / M ADM Date: 08/03/23 Loc: Room: Type: [facility] Attending Dr: Romulo Clark DO Ordering Provider: Romulo Clark DO Date of Service: 08/03/23/ ECH/ECH echo transthoracic: HTN. MATT. Syncope. Dizziness. Copies to: Ce Mantilla MD, [facility] Romulo Clark DO BSA: 2.5 m2 BP: 128/74 mmHg HR: 73 Reason For Study: HTN. MATT. Syncope. Dizziness. History: MATT. HTN. Interpretation Summary Mild concentric left ventricular hypertrophy. Ejection Fraction = 60-65%. A variety of Doppler measurements indicate impaired left ventricular relaxation, which is associated with grade I/IV or mild diastolic dysfunction. There is no prior echocardiogram noted for this patient. Procedure/Quality: A two-dimensional transthoracic echocardiogram with color flow and Doppler was performed. The study was technically good in quality. There is no prior echocardiogram noted for this patient. Left Ventricle: Mild concentric left ventricular hypertrophy. Left ventricular systolic function is normal. Ejection Fraction = 60-65%. A variety of Doppler measurements indicate impaired left ventricular relaxation, which is associated with grade I/IV or mild diastolic dysfunction. Left Atrium: The left atrium appears normal in size. The atrial septum appears normal. Right Atrium: The right atrium appears normal in size. Right Ventricle: The right ventricular size, thickness and function are normal. Aortic Valve: The aortic valve is trileaflet. Mitral Valve: The mitral valve is normal in structure and function. Tricuspid Valve: The tricuspid valve is normal in structure. There is trace tricuspid regurgitation. Pulmonic Valve: The pulmonic valve is not well seen, but is grossly normal. Arteries: The aortic root is normal size. Pericardium/Pleura: No pericardial effusion seen. There is no pleural effusion. IVC/Hepatic Veins: The IVC is normal in size with an inspiratory collapse of greater then 50%, suggesting normal right atrial pressure. Miscellaneous: No thrombus, vegetation or mass is seen. Measurements with Normals IVSd: 1.6 cm (0.7-1.1 cm)LVIDd: 5.4 cm (3.7-5.4 cm) LVPWd: 1.3 cm (0.7-1.1 cm)LVIDs: 3.6 cm (2.3-3.6 cm) LA dimension: 3.1 cm (2.3-4.0 cm)Ao root diam: 3.6 cm(2.0-3.6 cm) asc Aorta Diam: 4.2 cm(2.1-3.4cm) Doppler with Normals RVSP(TR): 34.8 mmHg (18-35mmHg) LV V1 max: 108.3 cm/sec (0.7-1.7m/s)MV E max jackelyn: 78.2 cm/sec(0.8-1.3m/s) MV A max jackelyn: 116.0 cm/sec(0.0-0.0m/s) MV E/A: 0.67 (<1.5) MMode/2D Measurements Calculations TAPSE: 2.6 cm FS: 34.0 % Ao root area: LVOT diam: 2.1 cm RV S Jackelyn: EDV(Teich): 10.0 cm2 LVOT area: 3.6 cm2 21.5 cm/sec 143.0 ml ESV(Teich): 53.9 ml EF(Teich): 62.3 % __ LVLd ap4: 8.6 cm SV(MOD-sp4): LAV(MOD-sp4): LA A2 area: 17.7 cm2 EDV(MOD-sp4): 95.4 ml 29.0 ml 148.0 ml LAV(MOD-sp2): LA A4 area: 14.6 cm2 LVLs ap4: 7.4 cm 47.6 ml LA length (vol): ESV(MOD-sp4): 5.5 cm 52.6 ml LA vol: 40.0 ml EF(MOD-sp4): 64.5 % LA vol index: 16.2 ml/m2 Doppler Measurements Calculations MV dec time: E/E' lat: 9.2 MV dec slope: Ao V2 max: 0.12 sec E/E' med: 9.7 155.3 cm/sec 634.7 cm/sec2 Ao max P.7 mmHg Ao mean P.7 mmHg Ao V2 mean: 113.1 cm/sec Ao V2 VTI: 26.3 cm BORIS(I,D): 2.6 cm2 BORIS(V,D): 2.5 cm2 __ LV V1 max PG: TV max PG: TR max jackelyn: 4.7 mmHg 32.0 mmHg 282.0 cm/sec LV V1 mean PG: TR max P.8 mmHg 2.7 mmHg RAP systole: 3.0 mmHg LV V1 mean: 78.4 cm/sec LV V1 VTI: 19.1 cm Transcribed By: SCV Performed At: 08/03/23920 Signed By: Ce Mantilla MD, [facility] 08/03/23 1432[facility] Physician GroupComprehensive metabolic 2000 panelon [id number] [Mass/Vol]4.3 g/dL 3.9 - 4.9 g/dLPaonia ClinicALP [Catalytic activity/Vol]122 U/LHigh38 - 113 U/LCleveland ClinicALT [Catalytic activity/Vol]18 U/L10 - 54 U/LC[facility] Clinic Anion gap [Moles/Vol]11 mmol/L9 - 18 mmol/LCleveland ClinicAST [Catalytic activity/Vol]24 U/L14 - 40 U/LCleveland ClinicBilirubin [Mass/Vol]0.5 mg/dL0.2 - 1.3 mg/dLPaonia ClinicCalcium [Mass/Vol]9.1 mg/dL8.5 - 10.2 mg/dLPaonia ClinicChloride [Moles/Vol]95 mmol/LLow97 - 105 mmol/LCleveland ClinicCO2 [Moles/Vol]24 mmol/L22 - 30 mmol/LCleveland ClinicCreatinine [Mass/Vol]0.92 mg/dL0.73 - 1.22 mg/dLSelect [facility], Edwin ShawEstimated Glomerular Filtration Rate92 mL/min/1.73m>=60 mL/min/1.73mCleveland ClinicGlucose [Mass/Vol]93 mg/dL74 - 99 mg/dLSelect [facility], Edwin ShawPotassium [Moles/Vol]4.7 mmol/L3.7 - 5.1 mmol/LCleveland ClinicProtein [Mass/Vol]7.8 g/dL6.3 - 8.0 g/dLPaonia ClinicSodium [Moles/Vol] 130 mmol/KGuj504 - 144 mmol/LCleveland ClinicUrea nitrogen [Mass/Vol]10 mg/dL9 - 24 mg/dLSelect [facility], Edwin ShawTSH BLDon [id number] Qn2.020 m[IU]/L0.270 - 4.200 mIU/LCleveland ClinicLIPID PROFILEon [id number] RATIO NORMSEE BELOW NormalThe [facility] HospitalComment on above:Result Comment: 3.3 - 4.4 LOW RISK 4.4 - 7.1 AVERAGE RISK 7.1 - 11.0 MODERATE RISK >11.0 HIGH RISKPerformed By: #### CMP, TSH, LIPID #### [facility] [address] [address] [address] John ParraCholesterol [Mass/Vol]156 mg/dLNormal<=200The [facility] Comment on above:Performed By: #### CMP, TSH, LIPID #### [facility] [address] [address] [address] John ParraCholesterol in HDL [Mass/Vol]42 mg/iBMokuoh64-73HksSt. John Of God HospitalComment on above:Performed By: #### CMP, TSH, LIPID #### [facility] [address] [place] [address] Dr. John Nevarezesterol in LDL [Mass/Vol]96.6 mg/dLOhioHealth Grant Medical CenterComment on above:Performed By: #### CMP, TSH, LIPID #### [facility] [address] [place] [address] Dr. John Pimentel.total/Cholesterol in HDL [Mass ratio]3.7 {ratio} NormalThe [facility] HospitalComment on above:Performed By: #### CMP, TSH, LIPID #### [facility] [address] [place] [address] Dr. John Hartman NORMAL> or = 60 mg/dl - LOW CARDIOVASCULAR RISK <40 mg/dl - HIGH CARDIOVASCULAR RISKOhioHealth Grant Medical CenterComment on above:Performed By: #### CMP, TSH, LIPID #### [facility] [address] [place] [address] Dr. John Mayorga CALC NORMALSEE Kettering Health TroyComment on above:Result Comment: <100 mg/dl OPTIMAL 100 - 129 mg/dl NEAR OR ABOVE OPTIMAL 130 - 159 mg/dl BORDERLINE HIGH 160 - 189 mg/dl HIGH >190 mg/dl VERY HIGH Performed By: #### CMP, TSH, LIPID #### [facility] [address] [address] [address] John ParraTriglyceride [Mass/Vol]87 mg/dLNormal<=150The [facility] Comment on above:Performed By: #### CMP, TSH, LIPID #### [facility] [address] [address] [address] John ParraVLDL CALC17.4 mg/dLNormalThe [facility] HospitalComment on above: Performed By: #### CMP, TSH, LIPID #### [facility] [address] [address] [address] John ParraPROF 14(COMP METB)on [id number] [Mass/Vol]4.0 g/dLNormal 3.4-5.0The [facility] HospitalComment on above:Performed By: #### CMP, TSH, LIPID #### [facility] [address] [place] [address] Dr. John ParraAlbumin/Globulin [Mass ratio]1.0 {ratio}NormalThe [facility] HospitalComment on above:Performed By: #### CMP, TSH, LIPID #### [facility] [address] [place] [address] Dr. John Randhawa [Catalytic activity/Vol]102 U/FYecwmw17-596Kpm [facility] HospitalComment on above:Performed By: #### CMP, TSH, LIPID #### [facility] [address] [address] [address] John Brooks [Catalytic activity/Vol]22 U/LCfyidm55-05Vfg [facility] HospitalComment on above:Performed By: #### CMP, TSH, LIPID #### [facility] [address] [place] [address] Dr. John Stark gap [Moles/Vol]9.4 mmol/LNormalThe [facility] HospitalComment on above:Performed By: #### CMP, TSH, LIPID #### [facility] [address] [place] [address] Dr. Yilan ChangAST [Catalytic activity/Vol]22 U/BTtahfq08-98Scm [facility] HospitalComment on above:Performed By: #### CMP, TSH, LIPID #### [facility] [address] [address] [address] John ParraBilirubin [Mass/Vol]0.6 mg/dLNormal0.2-1.0The [facility] Comment on above:Performed By: #### CMP, TSH, LIPID #### [facility] [address] [place] [address] Dr. John ParraCalcium [Mass/Vol]9.1 mg/dLNormal8.5-10.1The [facility] Comment on above:Performed By: #### CMP, TSH, LIPID #### [facility] [address] [place] [address] Dr. John ParraChloride [Moles/Vol]97 mmol/LCritically ofl60-710Ncg [facility] HospitalComment on above:Performed By: #### CMP, TSH, LIPID #### [facility] [address] [place] [address] Dr. John ParraCO2 [Moles/Vol]28.9 mmol/OPnxbqw10.0-32.0The [facility] Comment on above:Performed By: #### CMP, TSH, LIPID #### [facility] [address] [place] [address] Dr. John ParraCreatinine [Mass/Vol]0.95 mg/dLNormal0.70-1.30The [facility] HospitalComment on above:Performed By: #### CMP, TSH, LIPID #### [facility] [address] [place] [address] Dr. John MohrGFR-AF LIBERIAN>60Normal>=60The [facility] HospitalComment on above:Performed By: #### CMP, TSH, LIPID #### [facility] [address] [place] [address] Dr. John MohrGFR-NON AF LIBERIAN>60Normal>=60The [facility] HospitalComment on above:Performed By: #### CMP, TSH, LIPID #### [facility] [address] [address] [address] John ParraGlobulin (S) [Mass/Vol]4.0 g/dLNormBucyrus Community HospitalComment on above:Performed By: #### CMP, TSH, LIPID #### [facility] [address] [address] [address] John ParraGlucose [Mass/Vol]95 mg/aPOeaixw12-241Qao [facility] Comment on above:Performed By: #### CMP, TSH, LIPID #### [facility] [address] [address] [address] John ParraPotassium [Moles/Vol]4.3 mmol/LNormal3.5-5.1The [facility] Comment on above:Performed By: #### CMP, TSH, LIPID #### [facility] [address] [place] [address] Dr. John ParraProtein [Mass/Vol]8.0 g/dLNormal6.4-8.2The [facility] Comment on above:Performed By: #### CMP, TSH, LIPID #### [facility] [address] [address] [address] John ParraSodium [Moles/Vol]131 mmol/LCritically mke082-814Dzi [facility] HospitalComment on above:Performed By: #### CMP, TSH, LIPID #### [facility] [address] [place] [address] Dr. John ParraUrea nitrogen [Mass/Vol]4.0 mg/dLCritically low7.0-18.0The [facility] HospitalComment on above:Performed By: #### CMP, TSH, LIPID #### [facility] [address] [place] [address] Dr. John ParraUrea nitrogen/Creatinine [Mass ratio]4.2 mg/mgNoThe Jewish HospitalComment on above:Performed By: #### CMP, TSH, LIPID #### [facility] [address] [place] [address] Dr. John Gupta [id number] uIU/mLNormal0.358-3.740The [facility] HospitalComment on above:Performed By: #### CMP, TSH, LIPID #### [facility] [address] [place] [address] Dr. John ShaferC AUTO DIFFon [id number] #0.1 103/ulNormal0.0-0.1The [facility] HospitalComment on above:Performed By: #### CBC #### [facility] [address] [place] [address] Dr. John ParraBasophils/100 WBC (Bld)0.8 %Normal0.2-2.0The [facility] Comment on above:Performed By: #### CBC #### [facility] [address] [place] [address] Dr. John Hall #0.4 103/ulNormal0.0-0.7The [facility] HospitalComment on above: Performed By: #### CBC #### [facility] [address] [place] [address] Dr. John Mohrosinophils/100 WBC (Bld)2.5 %Normal0.9-7.0The [facility] Comment on above:Performed By: #### CBC #### [facility] [address] [place] [address] Dr. John Mohrrythrocyte distribution width (RBC) [Ratio]17.2 %Critically high 11.0-15.0The [facility] HospitalComment on above:Performed By: #### CBC #### [facility] [address] [place] [address] Dr. John ParraHematocrit (Bld) [Volume fraction]41.2 %Critically low42.0-54.0 The [facility] HospitalComment on above:Performed By: #### CBC #### [facility] [address] [place] [address] Dr. John ParraHemoglobin (Bld) [Mass/Vol]11.9 g/dLCritically low14.0-18.0The [facility] HospitalComment on above:Performed By: #### CBC #### [facility] [address] [address] [address] John Nye #0.10 10e3/ulCritically high0.00-0.03The [facility] Comment on above:Performed By: #### CBC #### [facility] [address] [address] [address] John Nye %0.7 %Critically high0.0-0.5The [facility] HospitalComment on above:Performed By: #### CBC #### [facility] [address] [place] [address] Dr. John Lemons #1.4 103/ulNormal1.2-3.8The [facility] HospitalComment on above:Performed By: #### CBC #### [facility] [address] [place] [address] Dr. John Lillyhocytes/100 WBC (Bld)9.9 %Critically low20.5-60.0The [facility] HospitalComment on above:Performed By: #### CBC #### [facility] [address] [place] [address] Dr. John ChavisUAL DIFF REQNONormalThe [facility] HospitalComment on above: Performed By: #### CBC #### [facility] [address] [place] [address] Dr. John Tripp (RBC) [Entitic mass]24.4 pgCritically low25.9-34.0The [facility] HospitalComment on above:Performed By: #### CBC #### [facility] [address] [place] [address] Dr. John Tripp (RBC) [Mass/Vol]28.9 g/dLCritically low29.9-35.2The [facility] HospitalComtrinity health livonia on above:Result Comment: RBCS ARE SLIGHTLY HYPOCHROMIC ON PERIPHERAL SMEARPerformed By: #### CBC #### [facility] [address] [place] [address] Dr. John Tripp (RBC) [Entitic vol]84.6 zHTyfuvj04.0-94.0The [facility] HospitalComment on above:Performed By: #### CBC #### [facility] [address] [address] [address] John Renee #1.1 103/ulCritically high0.3-0.8ThUniversity Hospitals Parma Medical Center Comment on above:Performed By: #### CBC #### [facility] [address] [address] [address] John Mejíaocytes/100 WBC (Bld)7.6 %Normal1.7-12.0[facility] Comment on above:Performed By: #### CBC #### [facility] [address] [address] [address] John Marion #11.5 103/ulCritically high1.4-6.5ThUniversity Hospitals Parma Medical Center Comment on above:Performed By: #### CBC #### [facility] [address] [address] [address] John Ontiverosutrophils/100 WBC (Bld)78.5 %Critically high43.0-75.0St. [facility] Of God HospitalComment on above:Performed By: #### CBC #### [facility] [address] [address] [address] John Gifford mean volume (Bld) [Entitic vol]8.8 fLCritically low 9.5-13.5ThUniversity Hospitals Parma Medical CenterComment on above:Performed By: #### CBC #### [facility] [address] [address] [address] John ParraPLT369 103/qvLisanu007-719Vik [facility] HospitalComment on above: Performed By: #### CBC #### [facility] [address] [address] [address] John ParraRBC4.87 106/ulNormal4.70-6.10The [facility] HospitalComment on above:Performed By: #### CBC #### [facility] [address] [address] [address] John ParraWBC14.6 103/ulCritically high4.0-11.0The [facility] HospitalComment on above:Performed By: #### CBC #### [facility] [address] [place] [address] Dr. John Chaudhary [id number] (ASCPKW) MAK GARCES ( ) 1955 M [employer] Date Time Provider Department 06/28/21 MARTA SALAZAR During your visit today, we recorded the following information about you: Marta Salzaar MD 06/28/2021 3:48 PM Signed Called patient Re: left lower lid entropion Discussed we were waiting on Botox approval--not sure if we got it yet Patient has upcoming surgery with Dr. Cool (only 25 min from his house)/ patient [place] Discussed can try and arrange at [facility] if patient wants Patient ok with having surgery with Dr. Cool discussed with patient we are available if needed Patient appreciative of call Patient feels right eye is doing well , saw Dr. fuchs today All questions answered Allergies As of Date: 06/28/2021 Noted Allergy Reaction LIV INHIBITORS 10/05/2014 3 - Cough Date Reviewed: 06/28/2021 Reviewed by: RACHANA Dobbins - Fully Assessed Reason for Visit: Appointment [186] Prescriptions as of 06/28/2021 - ciprofloxacin HCl (CILOXAN) 0.3 % ophthalmic solution Use 1 Drop in the right eye four times daily. - neomycin/polymyxin b/dexametha(MAXITROL 3.5 MG/ML-10,000 UNIT/ML-0.1% EYE DROPS,SUSPENSION) Use 1 Drop in the right eye four times daily. - dexAMETHasone (DECADRON) 6 mg tablet Take 6 mg by mouth once daily. - hydroxyurea (HYDREA) 500 mg capsule Take 1 capsule by mouth twice daily. - ZINC ORAL Take 140 mg by mouth. - levocetirizine (XYZAL) 5 mg tablet Take 5 mg by mouth. - ascorbic acid, vitamin C, (VITAMIN C) 500 mg tablet Take 500 mg by mouth once daily. - vitamin B complex (B-PLEX ORAL) Take by mouth. - erythromycin (ROMYCIN) 5 mg/gram (0.5 %) ophthalmic ointment Use 1 application in the right eye daily at bedtime. Apply 1/2 inch ribbon per application - olmesartan (BENICAR) 40 mg tablet 0.5 tablets once daily. - levothyroxine (SYNTHROID) 150 mcg tablet Take 1 tablet by mouth once daily. - fluticasone (FLONASE) 50 mcg/actuation nasal spray - tamsulosin (FLOMAX) 0.4 mg Take 0.4 mg by mouth daily at bedtime. - erythromycin ophthalmic ointment In both eyes and on incisions four times a day X 1 wk then twice a day x 1 wk - erythromycin ophthalmic ointment Apply 1/2 inch ribbon per application to incision and in eye four times a day X 1 wk then twice a day x 1 wk - carboxymethylcellulose (REFRESH TEARS) 0.5 % drop Use 1 Drop in both eyes as needed. - aspirin, enteric coated (ASPIRIN, ENTERIC COATED) 81 mg EC tablet Take 81 mg by mouth once daily. 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 Exposure keratoconjunctivitis, right [H16.211] 10/09/2017 Rupture of operation wound [T81.31XA] 10/09/2017 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*12/12/2017 Exposure keratoconjunctivitis of right eye [H16*12/12/2017 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] 05/08/2018 Radiation induced cataract [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] 09/30/2019 Preoperative examination [Z01.818] 04/05/2021 Corneal scar, 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] 04/05/2021 Total, 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.89] 04/05/2021 Encounter Status:Closed by MARTA SALAZAR on 06/28/21[facility] w/ Timbo [id number] distribution width (RBC) [Ratio]16.3 %High 11.6-14.8BAdena Fayette Medical CenterComment on above:Performed By: #### .Automated Diff #### [facility] (UNKNOWN) [address] [place], [place] [address]Tbjhnmkilj (Bld) [Volume fraction]42.7 %Sjapro92.0-53.0 [facility] SouthComment on above:Performed By: #### .Automated Diff #### [facility] (UNKNOWN) [address] [place], [place] [address]Vqltarqerw (Bld) [Mass/Vol]13.1 g/dLLow13.5-17.5BCleveland Clinic [facility] for Rehabilitation SystemComment on above:Performed By: #### .Automated Diff #### [facility] (UNKNOWN) [address], [place] [address]SKN (RBC) [Entitic mass]26.0 pgLow27.0-35.0[facility] SouthComment on above:Performed By: #### .Automated Diff #### [facility] (UNKNOWN) [address] [place], [place] [address]IDIZ96.6 %Low31.0-37.0[facility] SystemComment on above:Performed By: #### .Automated Diff #### [facility] (UNKNOWN) [address] [place], [place] [address]YKB (RBC) [Entitic vol]85.1 gLZdyaka29.0-100.0[facility] SouthComment on above:Performed By: #### .Automated Diff #### [facility] (UNKNOWN) [address] [place], [place] [address]Mxzqdtjz480 x10*3/wjJXftv976-252VvzhwmdhpPremier Health [facility] Comment on above:Performed By: #### .Automated Diff #### [facility] (UNKNOWN) [address] [place], [place] [address]Tpmjqscr mean volume (Bld) [Entitic vol]6.8 fLNormal6.7-10.6 [facility] SouthComment on above:Performed By: #### .Automated Diff #### [facility] (UNKNOWN) [address] [place], [place] [address]EVZ1.02 x10*6/mcLNormal4.30-5.80[facility] Comment on above:Performed By: #### .Automated Diff #### [facility] (UNKNOWN) [address] [place], [place] [address]EZL54.0 x10*3/mcLNormal4.5-11.0[facility] Comment on above:Performed By: #### .Automated Diff #### [facility] (UNKNOWN) [address] [place], [place] [address]Dpim Autoon [id number] Absolute0.1 x10*3/mcLNormal0.0-0.2 [facility] SouthComment on above:Performed By: #### .Automated Diff #### [facility] (UNKNOWN) [address] [place], [place] [address]Mpsgokrzu/100 WBC (Bld)1.3 %High0.0-1.2BAdena Fayette Medical CenterComment on above:Performed By: #### .Automated Diff #### [facility] (UNKNOWN) [address] [place], [place] [address]Uid Absolute0.3 x10*3/mcLNormal0.0-0.4BCleveland Clinic Children[facility] Hospital for Rehabilitation SystemComment on above:Performed By: #### .Automated Diff #### [facility] (UNKNOWN) [address] [facility], [place] [address]Stmtthuwsfr/100 WBC (Bld)2.6 %Normal0.0-6.1BCleveland Clinic Children[facility] Hospital for Rehabilitation SystemComment on above:Performed By: #### .Automated Diff #### [facility] (UNKNOWN) [address] [place], [place] [address]Xzfkm Absolute0.9 x10*3/mcLLow1.0-4.8BCleveland Clinic [facility] Hospital for Rehabilitation SystemComment on above:Performed By: #### .Automated Diff #### [facility] (UNKNOWN) [address] [place], [place] [address]Zucblgvbsxk/100 WBC (Bld)7.9 %Low27.2-40.8BCleveland Clinic Children[facility] Hospital for Rehabilitation SystemComment on above:Performed By: #### .Automated Diff #### [facility] (UNKNOWN) [address] [place], [place] [address]Pcye Absolute0.7 x10*3/mcLNormal0.3-1.1BCleveland Clinic Children[facility] for Rehabilitation SystemComment on above:Performed By: #### .Automated Diff #### [facility] (UNKNOWN) [address] [place], [place] [address]Gzoorrzdw/100 WBC (Bld)6.2 %Normal4.7-13.9BCleveland Clinic Children[facility] Hospital for Rehabilitation SystemComment on above:Performed By: #### .Automated Diff #### [facility] (UNKNOWN) [address] [place], [place] [address]Dwygoi Absolute9.0 x10*3/mcLHigh1.8-7.7BCleveland Clinic Children[facility] Hospital [facility] Rehabilitation SystemComment on above:Performed By: #### .Automated Diff #### [facility] (UNKNOWN) [address] [place], [place] [address]Uumyue Auto82.0 %High47.2-70.8BC[facility] System Comment on above:Performed By: #### .Automated Diff #### [facility] (UNKNOWN) [address] [place] [address].eGFRon 71-31-7041rDKK AA>60Normal>=60[facility] SouthComment on above:Result Comment: See comment.Performed By: #### .Manual Diff #### [facility] (UNKNOWN) [address] [place], [place] [address]hUVZ Non-AA>60Normal>=60[facility] SouthComment on above:Result Comment: Stages of Chronic Kidney Disease GFR Stage 3a Mild to moderate loss of kidney function 59 to 45 Stage 3b Moderate to severe loss of kidney function 44 to 33 Stage 4 Severe loss of kidney function 29 to 15 Stage 5 Kidney failure Less than 15 GFR calculated using the CKD-EPI Creatinine Equation (2009): eGFR = 141 X min(SCr/?, 1)? X max(SCr /?, 1)-1.209 X 0.993Age X 1.018 [if female] X 1.159 [if Black] Abbreviations/Units: eGFR (estimated glomerular filtration rate) = mL/min/1.73 m2 SCr (standardized serum creatinine) = mg/dL ? = 0.7 (females) or 0.9 (males) ? = -0.329 (females) or -0.411 (males) min = indicates the minimum of SCr/? or 1 max = indicates the maximum of SCr/? or 1 age = yearsPerformed By: #### .Manual Diff #### [facility] (UNKNOWN) [address] [place], [place] [address]OZS w/ Diffon 30-57-6836Egwbmyrbcfd distribution width (RBC) [Ratio]16.3 %High11.6-14.8BAdena Fayette Medical CenterComment on above: Performed By: #### .Manual Diff #### [facility] (UNKNOWN) [address] [place], [place] [address]Vqvxanurae (Bld) [Volume fraction]42.8 %Bnxgaa18.0-53.0 [facility] SouthComment on above:Performed By: #### .Manual Diff #### [facility] (UNKNOWN) [address] [place], [place] [address]Eagmczndyr (Bld) [Mass/Vol]13.1 g/dLLow13.5-17.5BAdena Fayette Medical CenterComment on above:Performed By: #### .Manual Diff #### [facility] (UNKNOWN) [address] [place], [place] [address]AIW (RBC) [Entitic mass]26.2 pgLow27.0-35.0[facility] SouthComment on above:Performed By: #### .Manual Diff #### [facility] (UNKNOWN) [address] [place], [place] [address]LYGX84.6 %Low31.0-37.0[facility] SouthComment on above:Performed By: #### .Manual Diff #### [facility] (UNKNOWN) [address] [place], [place] [address]DTU (RBC) [Entitic vol]85.6 dELmvyov39.0-100.0[facility] SouthComment on above:Performed By: #### .Manual Diff #### [facility] (UNKNOWN) [address] [place], [place] [address]Tomxsbaj736 x10*3/pfVEcnf956-632ZqelqufupPremier Health [facility] South Comment on above:Performed By: #### .Manual Diff #### [facility] (UNKNOWN) [address] [place], [place] [address]Lnumscsz mean volume (Bld) [Entitic vol]7.1 fLNormal6.7-10.6 [facility] SouthComment on above:Performed By: #### .Manual Diff #### [facility] (UNKNOWN) [address] [place], [place] [address]XNH6.00 x10*6/mcLNormal4.30-5.80[facility] Comment on above:Performed By: #### .Manual Diff #### [facility] (UNKNOWN) [address] [place], [place] [address]AXY99.4 x10*3/mcLNormal4.5-11.0[facility] Comment on above:Performed By: #### .Manual Diff #### [facility] (UNKNOWN) [address] [place], [place] [address]YISfu [id number] [Mass/Vol]4.4 g/dLNormal3.5-5.7 [facility] SouthComment on above:Performed By: #### .Automated Diff #### [facility] (UNKNOWN) [address], [place] [address]Ybnnard/Globulin [Mass ratio]1.3 {ratio}Normal1.1-2.2BCleveland Clinic Children[facility] Hospital for Rehabilitation SystemComment on above:Performed By: #### .Automated Diff #### [facility] (UNKNOWN) [address], [place] [address]Kab Phos91 IU/FVanurt98-652FcsqajztcPremier Health [facility] South Comment on above:Performed By: #### .Automated Diff #### [facility] (UNKNOWN) [address], [place] [address]SCN [Catalytic activity/Vol]15 U/LNormal7-52[facility] SouthComment on above:Performed By: #### .Automated Diff #### [facility] (UNKNOWN) [address], [place] [address]Zzacx gap [Moles/Vol]9 mmol/LNormal7-17[facility] SouthComment on above:Performed By: #### .Automated Diff #### [facility] (UNKNOWN) [address], [place] [address]MKO [Catalytic activity/Vol]25 U/MZxxfcy39-46SikvzcrjrMarion Hospital SystemComment on above:Performed By: #### .Automated Diff #### [facility] (UNKNOWN) [address] [place], [place] [address]Gjlp Total0.8 mg/dLNormal0.3-1.0[facility] Comment on above:Performed By: #### .Automated Diff #### [facility] (UNKNOWN) [address], [place] [address]Oxerjfc [Mass/Vol]9.4 mg/dLNormal8.6-10.2BCleveland Clinic [facility] for Rehabilitation SystemComment on above:Performed By: #### .Automated Diff #### [facility] (UNKNOWN) [address] [place], [place] [address]Julqukwz [Moles/Vol]96 mmol/XDrx71-259EcwynagfkMarion Hospital SystemComment on above:Performed By: #### .Automated Diff #### [facility] (UNKNOWN) [address] [place], [place] [address]DD7 [Moles/Vol]26 mmol/ODewmcg10-70WlxrqamovMarion Hospital SystemComment on above:Performed By: #### .Automated Diff #### [facility] (UNKNOWN) [address] [place], [place] [address]Shgztxanxl [Mass/Vol]1.1 mg/dLNormal0.6-1.3BCleveland Clinic Children[facility] Hospital for Rehabilitation SystemComment on above:Performed By: #### .Automated Diff #### [facility] (UNKNOWN) [address] [place], [place] [address]Qezynse [Mass/Vol]80 mg/fCJhefty67-06JjeyusvmdMarion Hospital SystemComment on above:Performed By: #### .Automated Diff #### [facility] (UNKNOWN) [address] [place], [place] [address]Opjkpktoo [Moles/Vol]4.3 mmol/LNormal3.5-5.1BCleveland Clinic Children[facility] Hospital [facility] Rehabilitation SystemComment on above:Performed By: #### .Automated Diff #### [facility] (UNKNOWN) [address] [place], [place] [address]Waamnxu [Mass/Vol]7.7 g/dLNormal6.4-8.9BCleveland Clinic [facility] Rehabilitation SystemComment on above:Performed By: #### .Automated Diff #### [facility] (UNKNOWN) [address] [place], [place] [address]Xsnwhn [Moles/Vol]127 mmol/RZjm532-167SwfcdmlsrMarion Hospital SystemComment on above:Performed By: #### .Automated Diff #### [facility] (UNKNOWN) [address] [place], [place] [address]Gyzu nitrogen [Mass/Vol]8 mg/dLNormal7-25[facility] SystemComment on above:Performed By: #### .Automated Diff #### [facility] (UNKNOWN) [address] [place], [place] [address]Jtmp nitrogen/Creatinine [Mass ratio]7.3 mg/mgLow10.0-20.0 [facility] SystemComment on above:Performed By: #### .Automated Diff #### [facility] (UNKNOWN) [address] [place], [place] [address]Kmtd Autoon [id number] Absolute0.1 x10*3/mcLNormal0.0-0.2 [facility] SystemComment on above:Performed By: #### .Automated Diff #### [facility] (UNKNOWN) [address] [place], [place] [address]Kavqyttqk/100 WBC (Bld)1.0 %Normal0.0-1.2BCleveland Clinic [facility] Rehabilitation SystemComment on above:Performed By: #### .Automated Diff #### [facility] (UNKNOWN) [address] [place], [place] [address]Sta Absolute0.3 x10*3/mcLNormal0.0-0.4BCleveland [facility] Rehabilitation SystemComment on above:Performed By: #### .Automated Diff #### [facility] (UNKNOWN) [address] [place], [place] [address]Wirvmzqvpqc/100 WBC (Bld)2.7 %Normal0.0-6.1BCleveland Clinic Children[facility] Hospital for Rehabilitation SystemComment on above:Performed By: #### .Automated Diff #### [facility] (UNKNOWN) [address] [place], [place] [address]Hdctw Absolute0.9 x10*3/mcLLow1.0-4.8BC[facility] Rehabilitation SystemComment on above:Performed By: #### .Automated Diff #### [facility] (UNKNOWN) [address] [place], [place] [address]Czbmkwtubrp/100 WBC (Bld)8.7 %Low27.2-40.8BCleveland [facility] Rehabilitation SystemComment on above:Performed By: #### .Automated Diff #### [facility] (UNKNOWN) [address] [place], [place] [address]Cljl Absolute0.7 x10*3/mcLNormal0.3-1.1BCleveland Clinic [facility] Rehabilitation SystemComment on above:Performed By: #### .Automated Diff #### [facility] (UNKNOWN) [address] [place], [place] [address]Bcfikwosw/100 WBC (Bld)6.7 %Normal4.7-13.9BCleveland [facility] Rehabilitation SystemComment on above:Performed By: #### .Automated Diff #### [facility] (UNKNOWN) [address] [place], [place] [address]Splqnb Absolute8.4 x10*3/mcLHigh1.8-7.7BCleveland Clinic [facility] Rehabilitation SystemComment on above:Performed By: #### .Automated Diff #### [facility] (UNKNOWN) [address] [place], [place] [address]Ykzabx Auto80.9 %High47.2-70.8BC[facility] System Comment on above:Performed By: #### .Automated Diff #### [facility] (UNKNOWN) [address] [place], [place] [address]Mfgvqerkwd Office/Clinic Noteon [id number] Office/Clinic NoteChief Complaint Polycythemia vera, history of non-Hodgkin lymphoma History of Present Illness Mr. Garces is a 65 year old male with past medical history of hypothyroid, OA, HTN, MATT, iron deficiency anemia in addition to orbital non-Hodgkin lymphoma, polycythemia vera. Regarding the patient's orbital non-Hodgkin lymphoma: He initially presented in 2017 with eye changes. He was found to have conjunctival lesions, more on the right than left. 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 The patient underwent PET/CT scan revealing no evidence of distant disease. He underwent bilateral conjunctival radiation which was completed 06/2017 with 24Gy/12. The patient has been followed on surveillance since without any evidence of recurrent lymphoma. He has had complications including corneal issues requiring surgery in 08/2017, 09/2017, 12/2017. He continues to follow closely with ophthalmology. Pathology with biopsy 03/2017 revealed CD20, BCL-2+, small lymphocytes with Ki-67 low at 10% consistent with extra clayton marginal zone lymphoma notably. Regarding the patient's polycythemia vera: The patient was noted incidentally on labs to have leukocytosis/thrombocytosis with normal hemoglobin. He had a low MCV and presumed iron deficiency anemia which was later confirmed. He had a JAK2 V617F mutation performed which was positive. The patient was started on aspirin and Hydroxyurea. He has required phlebotomies periodically. He is maintaining ad equate hemoglobin control with this management. Denies any personal history of any thromboses. He does have an enlarged spleen by ultrasound reportedly Interval History: The patient overall doing well. Denies any new concerns. Did have phlebotomy in the interim 10/2020.[place] better with this. Does note some mild fullness and fatigue but unchanged. Does have some pruritis but worse recently with increased hot water. Otherwise no significant progressive increase in his pruritis. No erythromelalgia. Does continue to have skin toxicity but denied any significant progression. No new eye change and has follow up eye surgeries planned at [facility]. Denies fevers, night sweats, unintentional weight loss. Denies any palpable adenopathy, LUQ pain, fullness or anorexia. No signs or symptoms of thrombosis. Review of Systems 10 point review of systems reviewed and negative other than HPI Physical Exam Vitals & Measurements T: 36.2 ?C (Oral) HR: 82 (Peripheral) BP: 130/84 SpO2: 97% HT: 191 cm HT: 191 cm WT: 127.9 kg (Dosing) WT: 123.4 kg (Dosing) WT: 127.9 kg BMI: 35.06 ECOG performance status: 0 Constitutional: No acute distress, alert and oriented x3 HEENT: Normocephalic atraumatic, moist mucous membranes, right eye with conjunctivae injected, drooped eyelid and reported decreased visual acuity Neck: Supple, no rigidity, no lymphadenopathy Cardiac: Regular rate and rhythm without murmur or gallop Respiratory: Clear to auscultation bilaterally without wheeze, rhonchi or rale Abdomen: Soft non tender, non distended, bowel sounds positive, no hepatosplenomegaly Extremities: No clubbing, cyanosis or edema Neurologic: Cranial nerves 2-12 intact, no focal deficits Skin: Intact without visible lesion or rash Laboratory Studies: Labs from today reviewed including CBC w/diff with WBC 10.4, ANC 8.4, hemoglobin 13.1, platelet count 415, CMP with sodium 127, otherwise unremarkable Assessment/Plan 65 year old male with past medical history of hypothyroid, HTN, MATT, OA, iron deficiency anemia in addition to ocular non-Hodgkin lymphoma, polycythemia vera. 1. Polycythemia vera ? Incidentally found with leukocytosis, thrombocytosis as well as normal reported hemoglobin although iron deficiency likely suppressing. JAK2 V617F mutation + in 2014 which was confirmed. Has been on aspirin daily, Hydrea, intermittent phlebotomy. No history of thrombosis. - The patient clinically doing well. Skin toxicity with no significant progression on higher dose Hydroxyurea. Continues moisturizer. Does have pruritis but no significant increase other than 1x increased after hot shower. Denies any signs or symptoms of VTE. No B symptoms. No palpable adenopathy. - Labs reviewed with stable blood counts with no significant increased leukocytosis or thrombocytosis, mild trending thrombocytosis which will be monitored. Hemoglobin remains suppressed with <45 hematocrit. - Last phlebotomy 10/2020. - Previously had increased the patient's dosing of Hydrea 08/2020 due to increasing platelet count. The patient has maintained relative stable counts at this time. The patient has some skin toxicity but wishes to continue treatment unchanged for adequate suppressive blood counts. Will continue treatment unchanged. - The patient received periodic phlebotomy with goal hematocrit >/=45. Last phlebotomy 10/2020. - Will continue aspirin daily 81mg PO daily with reported compliance. - Would continue Hydroxyurea unchan (more content not included)...Normal [facility] w/ Diffon 50-21-5459Gfvvvgjgvhc distribution width (RBC) [Ratio]16.0 %High11.6-14.8BAdena Fayette Medical CenterComment on above:Performed By: #### .Automated Diff #### [facility] (UNKNOWN) [address] [place], [place] [address]Qbohawmoqm (Bld) [Volume fraction]42.0 %Avlwzo18.0-53.0 [facility] SouthComment on above:Performed By: #### .Automated Diff #### [facility] (UNKNOWN) [address] [place], [place] [address]Xjqkyppyfx (Bld) [Mass/Vol]12.7 g/dLLow13.5-17.5BAdena Fayette Medical CenterComment on above:Performed By: #### .Automated Diff #### [facility] (UNKNOWN) [address] [place], [place] [address]YET (RBC) [Entitic mass]25.5 pgLow27.0-35.0[facility] SouthComment on above:Performed By: #### .Automated Diff #### [facility] (UNKNOWN) [address] [place], [place] [address]EXCW17.3 %Low31.0-37.0[facility] SouthComment on above:Performed By: #### .Automated Diff #### [facility] (UNKNOWN) [address] [place], [place] [address]LUI (RBC) [Entitic vol]84.3 wJMhegdk70.0-100.0[facility] SouthComment on above:Performed By: #### .Automated Diff #### [facility] (UNKNOWN) [address] [place], [place] [address]Rengflic333 x10*3/qcEOjkv732-675GikcxmiliPremier Health [facility] South Comment on above:Performed By: #### .Automated Diff #### [facility] (UNKNOWN) [address] [place], [place] [address]Ojdawcuj mean volume (Bld) [Entitic vol]6.7 fLNormal6.7-10.6 [facility] SouthComment on above:Performed By: #### .Automated Diff #### [facility] (UNKNOWN) [address] [place], [place] [address]DTM9.98 x10*6/mcLNormal4.30-5.80[facility] Comment on above:Performed By: #### .Automated Diff #### [facility] (UNKNOWN) [address] [place], [place] [address]NKP19.1 x10*3/mcLHigh4.5-11.0[facility] Comment on above:Performed By: #### .Automated Diff #### [facility] (UNKNOWN) [address] [place], [place] [address]Aiao Autoon 60-74-3139Ggrr Absolute0.1 x10*3/mcLNormal0.0-0.2 [facility] SystemComment on above:Performed By: #### .Automated Diff #### [facility] (UNKNOWN) [address] [place], [place] [address]Rcuelkhxg/100 WBC (Bld)1.0 %Normal0.0-1.2BCleveland Clinic Children[facility] Hospital for Rehabilitation SystemComment on above:Performed By: #### .Automated Diff #### [facility] (UNKNOWN) [address] [place], [place] [address]Oiz Absolute0.3 x10*3/mcLNormal0.0-0.4BCleveland Clinic Children[facility] Hospital for Rehabilitation SystemComment on above:Performed By: #### .Automated Diff #### [facility] (UNKNOWN) [address] [place], [place] [address]Pokedtmvzrx/100 WBC (Bld)2.4 %Normal0.0-6.1BCleveland Clinic Children's Hospital for Rehabilitation SystemComment on above:Performed By: #### .Automated Diff #### [facility] (UNKNOWN) [address], [place] [address]Nnpzg Absolute0.9 x10*3/mcLLow1.0-4.8BCleveland Clinic Children's Hospital for Rehabilitation SystemComment on above:Performed By: #### .Automated Diff #### [facility] (UNKNOWN) [address] [place], [place] [address]Ejzqmomxtno/100 WBC (Bld)7.5 %Low27.2-40.8BCleveland Clinic Children's Hospital for Rehabilitation SystemComment on above:Performed By: #### .Automated Diff #### [facility] (UNKNOWN) [address] [place], [place] [address]Pazj Absolute0.8 x10*3/mcLNormal0.3-1.1BCleveland Clinic Children's Hospital for Rehabilitation SystemComment on above:Performed By: #### .Automated Diff #### [facility] (UNKNOWN) [address] [place], [place] [address]Teyelqkag/100 WBC (Bld)6.3 %Normal4.7-13.9BCleveland Clinic Children's Hospital for Rehabilitation SystemComment on above:Performed By: #### .Automated Diff #### [facility] (UNKNOWN) [address] [place], [place] [address]Qcztqv Mpodgtss62.0 x10*3/mcLHigh1.8-7.7BCleveland Clinic Children's Hospital for Rehabilitation SystemComment on above:Performed By: #### .Automated Diff #### [facility] (UNKNOWN) [address] [place], [place] [address]Lwehij Auto82.8 %High47.2-70.8BCleveland Clinic Children[facility] for Rehabilitation System Comment on above:Performed By: #### .Automated Diff #### [facility] (UNKNOWN) [address] [place], [place] [address]ZMU w/ Diffon 45-71-1868Qsjyfeayocp distribution width (RBC) [Ratio]19.2 %High11.6-14.8BCleveland Clinic Children's Hospital for Rehabilitation SystemComment on above: Performed By: #### .Automated Diff #### [facility] (UNKNOWN) [address] [place], [place] [address]Aaliifcnvr (Bld) [Volume fraction]41.8 %Cqkonc60.0-53.0 [facility] SouthComment on above:Performed By: #### .Automated Diff #### [facility] (UNKNOWN) [address] [place], [place] [address]Kcmqxpayks (Bld) [Mass/Vol]12.9 g/dLLow13.5-17.5BCleveland Clinic Children's Hospital for Rehabilitation SystemComment on above:Performed By: #### .Automated Diff #### [facility] (UNKNOWN) [address] [place], [place] [address]TWM (RBC) [Entitic mass]25.4 pgLow27.0-35.0[facility] SystemComment on above:Performed By: #### .Automated Diff #### [facility] (UNKNOWN) [address] [place], [place] [address]UAWV38.0 %Dutvmk65.0-37.0[facility] SystemComment on above:Performed By: #### .Automated Diff #### [facility] (UNKNOWN) [address] [place], [place] [address]QSS (RBC) [Entitic vol]82.1 iVMcgvnk66.0-100.0[facility] SouthComment on above:Performed By: #### .Automated Diff #### [facility] (UNKNOWN) [address] [place], [place] [address]Tdljgxqg756 x10*3/eaKJskk704-487MpblthhrfPremier Health [facility] Comment on above:Performed By: #### .Automated Diff #### [facility] (UNKNOWN) [address] [place], [place] [address]Bdzwkofe mean volume (Bld) [Entitic vol]7.2 fLNormal6.7-10.6 [facility] SouthComment on above:Performed By: #### .Automated Diff #### [facility] (UNKNOWN) [address] [place], [place] [address]WVI5.09 x10*6/mcLNormal4.30-5.80[facility] Comment on above:Performed By: #### .Automated Diff #### [facility] (UNKNOWN) [address] [place], [place] [address]SAM69.0 x10*3/mcLNormal4.5-11.0[facility] Comment on above:Performed By: #### .Automated Diff #### [facility] (UNKNOWN) [address] [place], [place] [address]Bixt Autoon 12-18-2602Dzkq Absolute0.1 x10*3/mcLNormal0.0-0.2 [facility] SouthComment on above:Performed By: #### .Automated Diff #### [facility] (UNKNOWN) [address] [place], [place] [address]Itwfxbqwz/100 WBC (Bld)1.1 %Normal0.0-1.2BAdena Fayette Medical CenterComment on above:Performed By: #### .Automated Diff #### [facility] (UNKNOWN) [address] [facility], [place] [address]Vjf Absolute0.3 x10*3/mcLNormal0.0-0.4BCleveland Clinic Children's Hospital for Rehabilitation SystemComment on above:Performed By: #### .Automated Diff #### [facility] (UNKNOWN) [address] [place], [place] [address]Qglxmhoqbsg/100 WBC (Bld)2.5 %Normal0.0-6.1BCleveland Clinic Children's Hospital for Rehabilitation SystemComment on above:Performed By: #### .Automated Diff #### [facility] (UNKNOWN) [address] [place], [place] [address]Fpizm Absolute1.0 x10*3/mcLNormal1.0-4.8BCleveland Clinic Children[facility] Hospital for Rehabilitation SystemComment on above:Performed By: #### .Automated Diff #### [facility] (UNKNOWN) [address] [place], [place] [address]Ysdxoffhhha/100 WBC (Bld)9.5 %Low27.2-40.8BCleveland Clinic Children's Hospital for Rehabilitation SystemComment on above:Performed By: #### .Automated Diff #### [facility] (UNKNOWN) [address] [place], [place] [address]Fjjq Absolute0.7 x10*3/mcLNormal0.3-1.1BCleveland Clinic Children's Hospital for Rehabilitation SystemComment on above:Performed By: #### .Automated Diff #### [facility] (UNKNOWN) [address] [place], [place] [address]Zcpsyvgwi/100 WBC (Bld)6.4 %Normal4.7-13.9BCleveland Clinic Children's Hospital for Rehabilitation SystemComment on above:Performed By: #### .Automated Diff #### [facility] (UNKNOWN) [address] [place], [place] [address]Edbwgn Absolute8.9 x10*3/mcLHigh1.8-7.7BCleveland Clinic Children's Hospital for Rehabilitation SystemComment on above:Performed By: #### .Automated Diff #### [facility] (UNKNOWN) [address] [place], [place] [address]Tazszx Auto80.5 %High47.2-70.8BAdena Fayette Medical Center Comment on above:Performed By: #### .Automated Diff #### [facility] (UNKNOWN) [address], [place] [address]Zcao [facility] [id number]mugeeIdpmnqxqe Valley Health SystemComment on above:Performed By: #### .Manual Diff #### [facility] (UNKNOWN) [address], [place] [address]Uarc form neutrophils/100 WBC (Bld)0 %Normal0-5BCleveland Clinic Children's Hospital for Rehabilitation SystemComment on above:Performed By: #### .Manual Diff #### [facility] (UNKNOWN) [address] [place], [place] [address]Skxofoyqi/100 WBC (Bld)2 %Normal0-3BCleveland Clinic Children's Hospital for Rehabilitation SystemComment on above:Performed By: #### .Manual Diff #### [facility] (UNKNOWN) [address] [place], [place] [address]Idvvicymrav/100 WBC (Bld)4 %Normal0-7BCleveland Clinic Children's Hospital for Rehabilitation SystemComment on above:Performed By: #### .Manual Diff #### [facility] (UNKNOWN) [address] [place], [place] [address]Zttnvqeugze/100 WBC (Bld)17 %Pwqjzc23-60KsrulqdffMarion Hospital SystemComment on above:Performed By: #### .Manual Diff #### [facility] (UNKNOWN) [address] [place], [place] [address]Bpegrrgos/100 WBC (Bld)4 %Normal1-11BCleveland Clinic Children's Hospital for Rehabilitation SystemComment on above:Performed By: #### .Manual Diff #### [facility] (UNKNOWN) [address], [place] [address]TeezlawccbThbMbszbaJwkihvxba Valley Health SystemComment on above:Performed By: #### .Manual Diff #### [facility] (UNKNOWN) [address] [place], [place] [address]Opdupiez estimateIncreasedMercy Health Tiffin Hospital System Comment on above:Performed By: #### .Manual Diff #### [facility] (UNKNOWN) [address] [place], [place] [address]HAA morphology finding Nom (Bld)AbnormalNormalMarion Hospital SystemComment on above:Performed By: #### .Manual Diff #### [facility] (UNKNOWN) [address] [place], [place] [address]Kwij Man73 %Shsuhf65-00YefdvbvhmMarion Hospital SystemComment on above:Performed By: #### .Manual Diff #### [facility] (UNKNOWN) [address] [place] [address].eGFRon 78-90-6739oYJV AA>60Normal>=60[facility] SystemComment on above:Result Comment: See comment.Performed By: #### .Automated Diff #### [facility] (UNKNOWN) [address] [place], [place] [address]lIQQ Non-AA>60Normal>=60[facility] SouthComment on above:Result Comment: Stages of Chronic Kidney Disease GFR Stage 3a Mild to moderate loss of kidney function 59 to 45 Stage 3b Moderate to severe loss of kidney function 44 to 33 Stage 4 Severe loss of kidney function 29 to 15 Stage 5 Kidney failure Less than 15 GFR calculated using the CKD-EPI Creatinine Equation (2009): eGFR = 141 X min(SCr/?, 1)? X max(SCr /?, 1)-1.209 X 0.993Age X 1.018 [if female] X 1.159 [if Black] Abbreviations/Units: eGFR (estimated glomerular filtration rate) = mL/min/1.73 m2 SCr (standardized serum creatinine) = mg/dL ? = 0.7 (females) or 0.9 (males) ? = -0.329 (females) or -0.411 (males) min = indicates the minimum of SCr/? or 1 max = indicates the maximum of SCr/? or 1 age = yearsPerformed By: #### .Automated Diff #### [facility] (UNKNOWN) [address], [place] [address]IAX w/ Diffon 45-05-8470Ljqotzgdtlx distribution width (RBC) [Ratio]22.6 %High11.6-14.8BCleveland Clinic Children's Hospital for Rehabilitation SystemComment on above: Performed By: #### CBC #### [facility] (UNKNOWN) [address] [place], [place] [address]Ybxiibkhdp (Bld) [Volume fraction]40.3 %Low41.0-53.0[facility] SouthComment on above:Performed By: #### CBC #### [facility] (UNKNOWN) [address] [place], [place] [address]Weumqmxtin (Bld) [Mass/Vol]12.6 g/dLLow13.5-17.5BCleveland Clinic Children's Hospital for Rehabilitation SystemComment on above:Performed By: #### CBC #### [facility] (UNKNOWN) [address] [place], [place] [address]FHK (RBC) [Entitic mass]24.9 pgLow27.0-35.0[facility] SouthComment on above:Performed By: #### CBC #### [facility] (UNKNOWN) [address] [place], [place] [address]NMVW24.2 %Ijeblf93.0-37.0[facility] SouthComment on above:Performed By: #### CBC #### [facility] (UNKNOWN) [address] [place], [place] [address]UNX (RBC) [Entitic vol]79.9 fLLow80.0-100.0[facility] SouthComment on above:Performed By: #### CBC #### [facility] (UNKNOWN) [address] [place], [place] [address]Fltmjzeq596 x10*3/zdHLkxd840-888Nxtcftief [facility] Comment on above:Performed By: #### CBC #### [facility] (UNKNOWN) [address] [place], [place] [address]Oejvgizj mean volume (Bld) [Entitic vol]6.8 fLNormal6.7-10.6 [facility] SouthComment on above:Performed By: #### CBC #### [facility] (UNKNOWN) [address] [place], [place] [address]OSW5.05 x10*6/mcLNormal4.30-5.80[facility] Comment on above:Performed By: #### CBC #### [facility] (UNKNOWN) [address], [place] [address]UAT60.3 x10*3/mcLHigh4.5-11.0[facility] Comment on above:Performed By: #### CBC #### [facility] (UNKNOWN) [address], [place] [address]TCKzi 14-70-4967Hzhvixf [Mass/Vol]4.3 g/dLNormal3.5-5.7 [facility] SouthComment on above:Performed By: #### .Manual Diff #### [facility] (UNKNOWN) [address] [place], [place] [address]Utksmce/Globulin [Mass ratio]1.3 {ratio}Normal1.1-2.2BAdena Fayette Medical CenterComment on above:Performed By: #### .Manual Diff #### [facility] (UNKNOWN) [address], [place] [address]Epp Phos82 IU/XIfwzyz41-725EbzavhctoPremier Health [facility] Comment on above:Performed By: #### .Manual Diff #### [facility] (UNKNOWN) [address] [place], [place] [address]HCT [Catalytic activity/Vol]16 U/LNormal7-52[facility] SouthComment on above:Performed By: #### .Manual Diff #### [facility] (UNKNOWN) [address] [place], [place] [address]Ljwik gap [Moles/Vol]11 mmol/LNormal7-17[facility] SouthComment on above:Performed By: #### .Manual Diff #### [facility] (UNKNOWN) [address] [place], [place] [address]RFN [Catalytic activity/Vol]24 U/GNaffjt78-46IblcwcwmzPremier Health Miami Valley Hospital SouthComment on above:Performed By: #### .Manual Diff #### [facility] (UNKNOWN) [address] [place], [place] [address]Ergv Total0.6 mg/dLNormal0.3-1.0[facility] Comment on above:Performed By: #### .Manual Diff #### [facility] (UNKNOWN) [address], [place] [address]Mgxjqot [Mass/Vol]9.3 mg/dLNormal8.6-10.2BCleveland Clinic Children[facility] Hospital for Rehabilitation SystemComment on above:Performed By: #### .Manual Diff #### [facility] (UNKNOWN) [address] [place], [place] [address]Oovabnwj [Moles/Vol]92 mmol/NRwv71-978XtwuetavxMarion Hospital SystemComment on above:Performed By: #### .Manual Diff #### [facility] (UNKNOWN) [address] [place], [place] [address]MW1 [Moles/Vol]27 mmol/TQkwuof38-48OekptsntvMarion Hospital SystemComment on above:Performed By: #### .Manual Diff #### [facility] (UNKNOWN) [address] [place], [place] [address]Aihhwnuixw [Mass/Vol]1.0 mg/dLNormal0.6-1.3BCleveland Clinic Children[facility] Hospital for Rehabilitation SystemComment on above:Performed By: #### .Manual Diff #### [facility] (UNKNOWN) [address] [place], [place] [address]Iakwfpu [Mass/Vol]101 mg/lFIhwu99-58TsmfavlgqMarion Hospital SystemComment on above:Performed By: #### .Manual Diff #### [facility] (UNKNOWN) [address] [place], [place] [address]Vkjvuehrj [Moles/Vol]4.1 mmol/LNormal3.5-5.1BCleveland Clinic Children's Hospital for Rehabilitation SystemComment on above:Performed By: #### .Manual Diff #### [facility] (UNKNOWN) [address], [place] [address]Isavamo [Mass/Vol]7.5 g/dLNormal6.4-8.9BCleveland Clinic Children[facility] Hospital for Rehabilitation SystemComment on above:Performed By: #### .Manual Diff #### [facility] (UNKNOWN) [address] [place], [place] [address]Uvcnhx [Moles/Vol]126 mmol/TTgu830-761BvyzmeijaMarion Hospital SystemComment on above:Performed By: #### .Manual Diff #### [facility] (UNKNOWN) [address] [place], [place] [address]Ycze nitrogen [Mass/Vol]7 mg/dLNormal7-25[facility] SystemComment on above:Performed By: #### .Manual Diff #### [facility] (UNKNOWN) [address] [place], [place] [address]Abnu nitrogen/Creatinine [Mass ratio]7.0 mg/mgLow10.0-20.0 [facility] SystemComment on above:Performed By: #### .Manual Diff #### [facility] (UNKNOWN) [address] [place], [place] [address]Efqw Autoon 55-80-7680Wqyz Absolute0.1 x10*3/mcLNormal0.0-0.2 [facility] SystemComment on above:Performed By: #### .Automated Diff #### [facility] (UNKNOWN) [address] [place], [place] [address]Eiqbmguhu/100 WBC (Bld)0.9 %Normal0.0-1.2BCleveland Clinic Children's Hospital for Rehabilitation SystemComment on above:Performed By: #### .Automated Diff #### [facility] (UNKNOWN) [address] [place], [place] [address]Tim Absolute0.3 x10*3/mcLNormal0.0-0.4BCleveland Clinic Children[facility] Hospital for Rehabilitation SystemComment on above:Performed By: #### .Automated Diff #### [facility] (UNKNOWN) [address] [place], [place] [address]Zhlljsltxpf/100 WBC (Bld)2.5 %Normal0.0-6.1BCleveland Clinic Children[facility] Hospital for Rehabilitation SystemComment on above:Performed By: #### .Automated Diff #### [facility] (UNKNOWN) [address] [place], [place] [address]Zcrjv Absolute1.0 x10*3/mcLNormal1.0-4.8BCleveland Clinic [facility] for Rehabilitation SystemComment on above:Performed By: #### .Automated Diff #### [facility] (UNKNOWN) [address] [place], [place] [address]Vdqamyyanym/100 WBC (Bld)8.8 %Low27.2-40.8BCleveland Clinic Children[facility] Hospital for Rehabilitation SystemComment on above:Performed By: #### .Automated Diff #### [facility] (UNKNOWN) [address] [place], [place] [address]Vorn Absolute0.8 x10*3/mcLNormal0.3-1.1BCleveland Clinic [facility] for Rehabilitation SystemComment on above:Performed By: #### .Automated Diff #### [facility] (UNKNOWN) [address] [place], [place] [address]Qzlhrfgoc/100 WBC (Bld)7.0 %Normal4.7-13.9BCleveland Clinic Children[facility] for Rehabilitation SystemComment on above:Performed By: #### .Automated Diff #### [facility] (UNKNOWN) [address] [place], [place] [address]Fsonus Absolute9.1 x10*3/mcLHigh1.8-7.7BCleveland Clinic Children[facility] for Rehabilitation SystemComment on above:Performed By: #### .Automated Diff #### [facility] (UNKNOWN) [address] [place], [place] [address]Wldeen Auto80.8 %High47.2-70.8BC[facility] System Comment on above:Performed By: #### .Automated Diff #### [facility] (UNKNOWN) [address] [place], [place] [address]Phkv [facility] 18-70-2655TnldiebqzWftdxvgeVkitgvSjhhkcmun Valley Health SystemComment on above:Performed By: #### .Automated Diff #### [facility] (UNKNOWN) [address] [place], [place] [address]Ajof form neutrophils/100 WBC (Bld)0 %Normal0-5BCleveland Clinic Children's Hospital for Rehabilitation SystemComment on above:Performed By: #### .Automated Diff #### [facility] (UNKNOWN) [address] [place], [place] [address]Yejvptldk/100 WBC (Bld)1 %Normal0-3BCleveland Clinic Children's Hospital for Rehabilitation SystemComment on above:Performed By: #### .Automated Diff #### [facility] (UNKNOWN) [address] [place], [place] [address]Cmfheuidzcy/100 WBC (Bld)1 %Normal0-7BCleveland Clinic Children's Hospital for Rehabilitation SystemComment on above:Performed By: #### .Automated Diff #### [facility] (UNKNOWN) [address] [place], [place] [address]Lxbgtzplsmw/100 WBC (Bld)12 %Tfr40-26JoqlrxxkhMarion Hospital SystemComment on above:Performed By: #### .Automated Diff #### [facility] (UNKNOWN) [address] [place], [place] [address]Ltjcdqvfg/100 WBC (Bld)3 %Normal1-11BCleveland Clinic Children's Hospital for Rehabilitation SystemComment on above:Performed By: #### .Automated Diff #### [facility] (UNKNOWN) [address] [place], [place] [address]PuhsbmvkhjLhgNfgpnjRiqusbekv Valley Health SystemComment on above:Performed By: #### .Automated Diff #### [facility] (UNKNOWN) [address] [place], [place] [address]Llbevwzi estimateIncreasedNoDelaware County Hospital System Comment on above:Performed By: #### .Automated Diff #### [facility] (UNKNOWN) [address] [place], [place] [address]FTJ morphology finding Nom (Bld)AbnormalNormOhioHealth Hardin Memorial Hospital SystemComment on above:Performed By: #### .Automated Diff #### [facility] (UNKNOWN) [address] [place], [place] [address]Ttwu Man83 %Ktlh44-49TwesmsrhbMarion Hospital SystemComment on above:Performed By: #### .Automated Diff #### [facility] (UNKNOWN) [address] [place], [place] [address]Nzlzviqatw 03-82-0152Mybeldck Lvl8.0 ng/mLLow23.9-336.2 [facility] SystemComment on above:Performed By: #### FERR #### [facility] [address] [place], [place] [address]Obpgimuwfc Office/Clinic Noteon [phone] Office/Clinic NoteChief Complaint Polycythemia vera, history of non-Hodgkin lymphoma History of Present Illness Mr. Garces is a 65 year old male with past medical history of hypothyroid, OA, HTN, MATT, iron deficiency anemia in addition to orbital non-Hodgkin lymphoma, polycythemia vera. Regarding the patient's orbital non-Hodgkin lymphoma: He initially presented in 2017 with eye changes. He was found to have conjunctival lesions, more on the right than left. 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 The patient underwent PET/CT scan revealing no evidence of distant disease. He underwent bilateral conjunctival radiation which was completed 06/2017 with 24Gy/12. The patient has been followed on surveillance since without any evidence of recurrent lymphoma. He has had complications including corneal issues requiring surgery in 08/2017, 09/2017, 12/2017. He continues to follow closely with ophthalmology. Pathology with biopsy 03/2017 revealed CD20, BCL-2+, small lymphocytes with Ki-67 low at 10% consistent with extra clayton marginal zone lymphoma notably. Regarding the patient's polycythemia vera: The patient was noted incidentally on labs to have leukocytosis/thrombocytosis with normal hemoglobin. He had a low MCV and presumed iron deficiency anemia which was later confirmed. He had a JAK2 V617F mutation performed which was positive. The patient was started on aspirin and Hydroxyurea. He has required phlebotomies periodically. He is maintaining ad equate hemoglobin control with this management. Denies any personal history of any thromboses. He does have an enlarged spleen by ultrasound reportedly. Interval History: The patient doing well. No interval complaints. Continues to have tolerable skin toxities. Patient reports he has some scaling on top of his scalp along his forehead and on his cheek. Following closely with his eye doctor at [facility]. Has follow up check up 12/20/2020. Denies fevers or signs of infection. Denies any significant mental fogginess or decreased clarity. Review of Systems 10 point review of systems reviewed and negative other than HPI. Physical Exam Vitals & Measurements T: 36.3 ?C (Oral) HR: 92 (Peripheral) BP: 129/80 SpO2: 99% HT: 191 cm HT: 191 cm WT: 123.4 kg (Dosing) WT: 124.7 kg (Dosing) WT: 123.4 kg BMI: 33.83 ECOG performance status: 0 Constitutional: No acute distress, alert and oriented x3 HEENT: Normocephalic atraumatic, moist mucous membranes, right eye with conjunctivae injected, drooped eyelid and reported decreased visual acuity Neck: Supple, no rigidity, no lymphadenopathy Cardiac: Regular rate and rhythm without murmur or gallop Respiratory: Clear to auscultation bilaterally without wheeze, rhonchi or rale Abdomen: Soft non tender, non distended, bowel sounds positive, no hepatosplenomegaly Extremities: No clubbing, cyanosis or edema Neurologic: Cranial nerves 2-12 intact, no focal deficits Skin: Intact without visible lesion or rash, some mild redness noted along patients forehead and scalp. No significant scabbing, drainage, or ulceration noted Laboratory Studies: Labs from today reviewed including CBC w/diff with WBC 11.3, hemoglobin 12.6, hematocrit 40.3, platelet count 469, neutrophils 9.1, CMP with sodium 126, normal renal and hepatic function. Assessment/Plan 65 year old male with past medical history of hypothyroid, HTN, MATT, OA, iron deficiency anemia in addition to ocular non-Hodgkin lymphoma, polycythemia vera. 1. Polycythemia vera ? Incidentally found with leukocytosis, thrombocytosis as well as normal reported hemoglobin although iron deficiency likely suppressing. JAK2 V617F mutation + in 2014 which was confirmed. Has been on aspirin daily, Hydrea, intermittent phlebotomy. No history of thrombosis. - The patient clinically doing well. Stable skin toxicity. No new toxicities. No signs or symptoms of VTE. No B symptoms or palpable peripheral lymphadenopathy. - Lab studies reviewed for toxicity. Decreased leukocytosis. Slight increase in thrombocytosis. Hematocrit at goal at 40. - Last phlebotomy 10/2020. - Previously had decreased the patient's dosing of Hydrea secondary to skin toxicity. Has been on Hydrea 500mg PO bid. Reports stable skin findings. No other significant toxicities other than mild fatigue. Otherwise no change indicated. - The patient received periodic phlebotomy with hematocrit >/=45. Last phlebotomy 10/2020. - Will continue aspirin daily 81mg PO daily with reported compliance. - Would continue Hydroxyurea indefinite secondary to risk/reduction of thrombotic disease. Period blood count monitoring with reevaluation in 3 months. 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 Continues unknown moisturizer from [facility] country. 3. Non-Hodgkin lymphoma ? Presented in late 2017 with conjunctival involvement bilateral reported. Biopsy right conjunctiva with extra clayton margina (more content not included)...NormalPremier Health Miami [facility] Hospital SouthTIBCon 12-10-2020 Iron [Mass/Vol]18 ug/wFAgr79-696ZrsicbomfPremier Health Miami Valley Hospital SouthComment on above: Performed By: #### TIBC #### [address] [address]Aatu Sat3.6 %Low>=16.0Prem[facility] Hospital SouthComment on above:Performed By: #### TIBC #### [address] [address]CVUW626 mcg/cLRgxt694-873TwfobbsxpPremier Health Miami Valley Hospital SouthComment on above:Performed By: #### TIBC #### [address] [address]Jvmuooznmao [Mass/Vol]357 mg/rQSoeh899-263SslnbpkybPremier Health Miami Valley Hospital SouthComment on above:Performed By: #### TIBC #### [address] [address]Hr Panel Information[facility] Vital Signs Date TimeVital SignValuePerforming UodgmfgqcCatlfdzo38-12-4066 08:39-0400 Diastolic blood hjjidjow223 mm[Hg]Catrachita Mariee MD Work Phone: [facility] ClinicComment on above:ybgugtf69-04-3936 08:39-0400Systolic blood gpyiaiyx939 mm[Hg]Catrachita Mariee MD Work Phone: [facility] ClinicComment on above:egjqyaq51-49-1926 08:36-0400Body cmAadrian Mariee MD Work Phone: [place] Akzpbp34-43-5323 08:36-0400Body mass index (BMI) [Ratio]34.04 kg/m3JcncxiCatrachita Mariee MD Work Phone: cPremier Health Miami Valley Hospital SouthNbutwt29-61-9765 08:36-0400Body temperature 97.5 [degF]Catrachita Mariee MD Work Phone: [facility] hospitaland Wmrauc61-75-4238 08:36-0400Body nmgopy783.3 kgAdaluci Mariee MD Work Phone: cPremier Health Miami Valley Hospital SouthKdotsp75-90-5301 08:36-0400Heart rate81 /min Catrachita Mariee MD Work Phone: [facility] hospitaland Edorbn47-00-9027 08:36-0400Respiratory rate 16 /minAdaluci Mariee MD Work Phone: cPremier Health Miami Valley Hospital SouthUmrerh97-08-9898 08:36-3986ZtF0% (BldA) [Mass fraction]98 %Catrachita Mariee MD Work Phone: cPremier Health Miami Valley Hospital SouthZviztn48-76-4341 09:11-0400Body cswuef647 cm Mariluz Rubin MD Work Phone: [facility]06-23-2025 09:11-0400 Body mass index (BMI) [Ratio]34.73 kg/g8JbzezavMariluz Rubin MD Work Phone: [facility]06-23-2025 09:11-0400 Body bypcvrzyoaa38.5 [degF]Mariluz Rubin MD Work Phone: [facility]06-23-2025 09:11-0400 Body eoajgc598.7 kgMariluz Rubin MD Work Phone: [facility]06-23-2025 09:11-0400 Diastolic blood makpgbad874 mm[Hg]Mariluz Rubin MD Work Phone: [facility]06-23-2025 09:11-0400 Systolic blood ixwkhaba987 mm[Hg]Mariluz Rubin MD Work Phone: [facility]05-09-2025 10:21-0400 Body ugxcef607 cmMatthew Eyad DO Work Phone: 1(693)909-[address] [place], [place] [address]Eujrrqvwzr42-26-9404 10:21-0400Body mass index (BMI) [Ratio]33.81 kg/f6Godltdx Eyad DO Work Phone: 1(879)624-[address] [place], [place] [address]Pkqpuaghwu33-20-8857 10:0400Body temperature 98.2 [degF]Romulo Clark DO Work Phone: 1(212)264-[address] [place], [place] [address]Gnueubluyu25-19-1893 10:040Body yjfjey189.43 kgMatthew Eyad DO Work Phone: 1(221)[facility] [place], [place] [address]Fkeyvubqqz73-06-5623 10:0400Diastolic blood tdyzljen24 mm[Hg]Romulo Clark DO Work Phone: 1(804)[facility] [place], [place] [address]Lsfhitngyh18-42-5236 10:040Heart rate86 /min Romulo Clark DO Work Phone: 1(818)[facility] [place], [place] [address]Lotgzstrmo97-87-5094 10:3220EoY4% (BldA) [Mass fraction]96 %Romulo Clark DO Work Phone: 1(566)635-[address] [place], [place] [address]Pcunlvwgkn26-89-5234 10:040Systolic blood yrkkmnow677 mm[Hg]Romulo Clark DO Work Phone: [facility] MedicineBcrttwsatw62-17-8348 09:130400Body yrxlxu127 cm Mario Siddiqui MD Work Phone: [facility]04-15-2025 09:13-0400Body mass index (BMI) [Ratio]33.87 kg/r5AmpugMario Siddiqui MD Work Phone: [facility]04-15-2025 09:13-0400Body temperature 97.9 [degF]Mario Siddiqui MD Work Phone: [facility]04-15-2025 09:13-0400Body .7 kgMario Siddiqui MD Work Phone: [facility]04-15-2025 09:13-0400Diastolic blood mm[Hg]Mario Siddiqui MD Work Phone: [facility]04-15-2025 09:13-0400Heart rate81 /min Mario Siddiqui MD Work Phone: [facility]04-15-2025 09:13-0400Respiratory rate 16 /minMario Siddiqui MD Work Phone: [facility]04-15-2025 09:13-2110FlK5% (BldA) [Mass fraction]97 %Mario Siddiqui MD Work Phone: [facility]04-15-2025 09:130400Systolic blood ruszyxie057 mm[Hg]Mario Siddiqui MD Work Phone: [facility]04-11-2025 10:13-0400Body urzske924.96 cmMatthew Petznick DO Work Phone: 1(097)[address] [place], [place] [address]04-11-2025 10:13-0400 Body mass index (BMI) [Ratio]34 kg/h9Ykinllb Petznick DO Work Phone: 1(759)[address] [place], [place] [address]56[address]04-11-2025 10:13-0400 Body zyocmi540.2 kgMatthew Petznick DO Work Phone: 1(385)[address] [place], [place] [address]04-11-2025 10:13-0400 Diastolic blood skqzrauq48 mm[Hg]Romulo Clark DO Work Phone: 1(386)[address] [place], [place] [address]04-11-2025 10:13-0400 Heart rate80 /minMatthew Petznick DO Work Phone: 1(642)[address] [place], [place] [address]04-11-2025 10:13-0400 SaO2% (BldA) [Mass fraction]99 %Romulo Clark DO Work Phone: 1(407)[address] [place], [place] [address]04-11-2025 10:13-0400 Systolic blood abkyonbn540 mm[Hg]Romulo Clark DO Work Phone: 1(595)[address] [place], [place] [address]04-10-2025 12:19-0400 Body uynetpnqfiv66.3 [degF]Mariluz Rubin MD Work Phone: 1(138)382-[address] [place], [place] 8384404-10-2025 12:19-0400 Diastolic blood mm[Hg]Mariluz Rubin MD Work Phone: [phone])[address]04-10-2025 12:19-0400 Heart rate73 /Gaye uRbin MD Work Phone: 1216)[address]04-10-2025 12:19-0400 Respiratory rate16 /Gaye Rubin MD Work Phone: 1(913)[address]04-10-2025 12:19-0400 SaO2% (BldA) [Mass fraction]98 %Mariluz Rubin MD Work Phone: 1(468)[address]04-10-2025 12:19-0400 Systolic blood ytbjkxga362 mm[Hg]Mariluz Rubin MD Work Phone: 1216)604-[address] [place], [place] 8384404-10-2025 09:32-0400 Body idpvrr265 cmMariluz Rubin MD Work Phone: 1(702)811-[address] [place], [place] 8384404-10-2025 09:32-0400 Body mass index (BMI) [Ratio]32.72 kg/q0BqhafofMariluz Rubin MD Work Phone: 1(413)567-[address] [place], [place] 8384404-10-2025 09:32-0400 Body iavcdq523.6 kgMariluz Rubin MD Work Phone: 1(561)392-96[facility]03-24-2025 10:43-0400 Body pyultk817 cmMariluz Rubin MD Work Phone: 1(870)156-[address] [place], [place] 8384403-24-2025 10:43-0400 Body mass index (BMI) [Ratio]33.38 kg/t6EsfptwhMariluz Rubin MD Work Phone: 1(428)972-[address] [place], [place] 8384403-24-2025 10:43-0400 Body xrjhckhooke31.6 [degF]Mariluz Rubin MD Work Phone: [facility]03-24-2025 10:43-0400 Body .94 kgMariluz Rubin MD Work Phone: [facility]03-06-2025 09:45-0500 Body yqavjkrzjjo81.2 [degF]Mariluz Rubin MD Work Phone: [facility]03-06-2025 09:45-0500 Diastolic blood edsnjwvv21 mm[Hg]Mariluz Rubin MD Work Phone: 1([phone])[phone]03-06-2025 09:45-0500 Heart rate82 /Gaye Rubin MD Work Phone: [facility]03-06-2025 09:45-0500 Respiratory rate16 /Gaye Rubin MD Work Phone: [facility]03-06-2025 09:45-0500 SaO2% (BldA) [Mass fraction]95 %Mariluz Rubin MD Work Phone: [facility]03-06-2025 09:45-0500 Systolic blood hjrduzqv337 mm[Hg]Mariluz Rubin MD Work Phone: [facility]02-19-2025 09:16-0500 Body plqzib081 cmMatthew Petnelaick DO Work Phone: noMet[facility] CenterPbqxllatzf93-27-8972 09:16-0500Body mass index (BMI) [Ratio]34.02 kg/x7Qzojsdn Petnelaick DO Work Phone: noMet[facility] CenterWmfdkmnhrn68-55-3863 09:16-0500Body temperature 98.01 [degF]Romulo Clark DO Work Phone: noMet[facility] CenterNunkcdolsc50-10-2342 09:16-0500Body iusdzf560.2 kgRomulo Eyad DO Work Phone: 1(419)[address] [place], [place] 1914602-19-2025 09:16-0500Diastolic blood fekmoykf89 mm[Hg]Romulo Petznick DO Work Phone: 1(427)[address] [place], [place] 1914602-19-2025 09:16-0500Heart rate60 /min Romulo Petznick DO Work Phone: 1(820)[address] [place], [place] 1914602-19-2025 09:16-2843HrE1% (BldA) [Mass fraction]98 %Romulo Petznick DO Work Phone: 1(456)[address] [place], [place] 1914602-19-2025 09:16-0500Systolic blood yngthxqz539 mm[Hg]Romulo Petznick DO Work Phone: 1(062)[address] [place], [place] 1914602-18-2025 10:40-0500Diastolic blood goajwexw88 mm[Hg]Romulo Petznick DO Work Phone: 1(961)[address] [place], [place] [address]02-18-2025 10:40-0500 Heart rate55 /minMatthew Petznick DO Work Phone: 1(749)[address] [place], [place] 956[address]02-18-2025 10:40-0500 Respiratory rate18 /minMatthew Petznick DO Work Phone: 1(045)[address] [place], [place] 9569902-18-2025 10:40-0500 SaO2% (BldA) [Mass fraction]97 %Romulo Petznick DO Work Phone: 1(617)[address] [place], [place] 9569902-18-2025 10:40-0500 Systolic blood mm[Hg]Romulo Petznick DO Work Phone: 1(561)[address] [place], [place] 9569902-18-2025 08:58-0500 Body tsslei942.96 cmMatthew Petznick DO Work Phone: 1(901)[address] [place], [place] 956[address]02-18-2025 08:58-0500 Body cxgevlzwcsi97.6 [degF]Romulo Petznick DO Work Phone: 1(585)[address] [place], [place] [address]02-18-2025 08:58-0500 Body xeodht187.46 kgMatthew Petznick DO Work Phone: [facility]02-10-2025 08:54-0500 Body otgjpzlzxoe31.5 [degF]Mariluz Rubin MD Work Phone: [facility]02-10-2025 08:54-0500 Body mvkigk955.75 kgMariluz Rubin MD Work Phone: [facility]02-04-2025 07:49-0500 Diastolic blood lvejuitq780 mm[Hg]Serg Foster MD PhD Work Phone: [facility]02-04-2025 07:49-0500 Heart rate74 /minSerg Foster MD PhD Work Phone: [facility]02-04-2025 07:49-0500 Systolic blood zwuswonk911 mm[Hg]Serg Foster MD PhD Work Phone: [facility]01-21-2025 08:25-0500 Body rfvean600 cmMindy Star PA-C Work Phone: [facility]01-21-2025 08:25-0500Body mass index (BMI) [Ratio]35.28 kg/l6Bzout Star PA-C Work Phone: [facility]01-21-2025 08:25-0500Body temperature 97.9 [degF]Holly Star PA-C Work Phone: [facility]01-21-2025 08:25-0500Body .7 kgMindy Star PA-C Work Phone: [facility]01-21-2025 08:25-0500Diastolic blood rhwkejhu40 mm[Hg]Holly Star PA-C Work Phone: [facility] ShawComment on above:pt declined a recheck 05-20-2024 08:25-0500Heart rate82 /minMindy Star PA-C Work Phone: [facility]01-21-2025 08:25-0500Respiratory rate 16 /minMindy Star PA-C Work Phone: [facility]01-21-2025 08:25-0274GsB8% (BldA) [Mass fraction]99 %Holly Star PA-C Work Phone: [facility]01-21-2025 08:25-0500Systolic blood lgghsgmi974 mm[Hg]Holly Star PA-C Work Phone: [facility] ShawComment on above:pt declined a recheck 02-26-2024 10:02-0400Diastolic blood tqltmpuv13 mm[Hg]Chair Mike Work Phone: [facility]10-29-2024 10:02-0400Heart rate72 /min Chair Mike Work Phone: [facility]10-29-2024 10:02-0400Respiratory rate 18 /minChair Mike Work Phone: [facility]10-29-2024 10:02-0400Systolic blood wpgyvfnl785 mm[Hg]Chair Mike Work Phone: [facility]10-29-2024 08:18-0400Body cm Holly Star PA-C Work Phone: [facility]10-29-2024 08:18-0400Body mass index (BMI) [Ratio]35.08 kg/d7Iutqx Star PA-C Work Phone: [facility]10-29-2024 08:18-0400Body temperature 97.7 [degF]Holly Star PA-C Work Phone: [facility]10-29-2024 08:18-0400Body smncse174 kg Holly Star PA-C Work Phone: [facility]10-29-2024 08:18-0400Diastolic blood ggncwsyb20 mm[Hg]Holly Star PA-C Work Phone: [facility]10-29-2024 08:18-0400Heart rate84 /min Holly Star PA-C Work Phone: [facility]10-29-2024 08:18-0400Respiratory rate 16 /minMindy Star PA-C Work Phone: [facility]10-29-2024 08:18-0243WwZ8% (BldA) [Mass fraction]99 %Holly Star PA-C Work Phone: [facility]10-29-2024 08:18-0400Systolic blood cymiqpft424 mm[Hg]Holly Star PA-C Work Phone: [facility]07-31-2024 10:39-0400Diastolic blood drlthaly62 mm[Hg]Chair Mike Work Phone: [facility]07-31-2024 10:39-0400Heart rate79 /min Chair Chenango Work Phone: [facility]07-31-2024 10:39-0400Respiratory rate 16 /minChair Chenango Work Phone: [facility]07-31-2024 10:39-1501ArF3% (BldA) [Mass fraction]95 %Chair Mike Work Phone: [facility]07-31-2024 10:39-0400Systolic blood rzbeuabc656 mm[Hg]Chair Chenango Work Phone: [facility]07-31-2024 09:44-0400Body ajiexo771 cm Holly Star PA-C Work Phone: [facility]07-31-2024 09:44-0400Body mass index (BMI) [Ratio]34.46 kg/h5Huolv Star PA-C Work Phone: [facility]07-31-2024 09:44-0400Body temperature 98.01 [degF]Holly Satr PA-C Work Phone: [facility]07-31-2024 09:44-0400Body .8 kgMinree Tariqer PA-C Work Phone: [facility]07-31-2024 09:44-0400Diastolic blood gvuqpcgs76 mm[Hg]Holly Tariqer PA-C Work Phone: [facility]07-31-2024 09:44-0400Heart rate75 /min Holly Tariqer PA-C Work Phone: [facility]07-31-2024 09:44-0400Respiratory rate 16 /minHolly Star PA-C Work Phone: [facility]07-31-2024 09:44-3161UvJ1% (BldA) [Mass fraction]97 %Holly Tariqer PA-C Work Phone: [facility]07-31-2024 09:44-0400Systolic blood ljnswuin352 mm[Hg]Holly Tariqer PA-C Work Phone: [facility]04-30-2024 08:29-0400Body cm Mario Siddiqui MD Work Phone: [facility]04-30-2024 08:29-0400Body mass index (BMI) [Ratio]34.86 kg/q5PcqvzMario Siddiqui MD Work Phone: [facility]04-30-2024 08:29-0400Body temperature 97.11 [degF]Mario Siddiqui MD Work Phone: [facility]04-30-2024 08:29-0400Body hygunv834.2 kgMario Siddiqui MD Work Phone: [facility]04-30-2024 08:29-0400Diastolic blood jkmpytse56 mm[Hg]Mario Siddiqui MD Work Phone: [facility]04-30-2024 08:29-0400Heart rate81 /min Mario Siddiqui MD Work Phone: [facility]04-30-2024 08:29-0400Respiratory rate 18 /minMario Siddiqui MD Work Phone: [facility]04-30-2024 08:29-4160PeL1% (BldA) [Mass fraction]95 %Mario Siddiqui MD Work Phone: [facility]04-30-2024 08:29-0400Systolic blood ivlzqzlk158 mm[Hg]Mario Siddiqui MD Work Phone: [facility]04-12-2024 10:54-0400Body pwrhyu425.96 cmDO Romulo Clark Work Phone: 1(969)[address]04-12-2024 10:54-0400 Body mass index (BMI) [Ratio]34.9 kg/m2DO Romulo Clark Work Phone: 1(079)[address]04-12-2024 10:54-0400 Body afylkm648.37 kgDO Romulo Clark Work Phone: 1(995)[address]04-12-2024 10:54-0400 Diastolic blood cggjxcey16 mm[Hg]DO Romulo Clark Work Phone: 1(169)[address]04-12-2024 10:54-0400 Heart rate83 /minDO Romulo Clark Work Phone: 1(451)[address]04-12-2024 10:54-0400 SaO2% (BldA) [Mass fraction]97 %DO Romulo Clark Work Phone: 1(612)[address] [place], [place] [address]9904-12-2024 10:54-0400 Systolic blood vwjtildb073 mm[Hg]DO Romulo Petznick Work Phone: 1(451)[address]03-19-2024 08:52-0400 Diastolic blood mm[Hg]Chair Chenango Work Phone: [facility]03-19-2024 08:52-0400Heart rate86 /min Chair Chenango Work Phone: [facility]03-19-2024 08:52-0400Respiratory rate 16 /minChair Mike Work Phone: [facility]03-19-2024 08:52-0400Systolic blood pqubbqyt968 mm[Hg]Chair Mike Work Phone: [facility]03-19-2024 08:25-0400Body temperature 98.1 [degF]Chair Mike Work Phone: [facility]02-06-2024 09:40-0500Diastolic blood mm[Hg]Chair Mike Work Phone: [facility]02-06-2024 09:40-0500Heart rate99 /min Chair Mike Work Phone: [facility]02-06-2024 09:40-0500Respiratory rate 18 /minChair Mike Work Phone: [facility]02-06-2024 09:40-0500Systolic blood pvvhismd270 mm[Hg]Chair Mike Work Phone: [facility]02-06-2024 09:19-0500Body temperature 97.5 [degF]Chair Mike Work Phone: [facility]02-06-2024 08:41-0500Body tyvtaj463 cm Mario Siddiqui MD Work Phone: [facility]02-06-2024 08:41-0500Body temperature 97.5 [degF]Mario Siddiqui MD Work Phone: [facility]02-06-2024 08:41-0500Body carxxp514.1 kgMario Siddiqui MD Work Phone: [facility]02-06-2024 08:41-0500Diastolic blood mm[Hg]Mario Siddiqui MD Work Phone: [facility]02-06-2024 08:41-0500Heart rate98 /min Mario Siddiqui MD Work Phone: [facility]02-06-2024 08:41-0500Respiratory rate 18 /minMario Siddiqui MD Work Phone: [facility]02-06-2024 08:41-0280GnC0% (BldA) [Mass fraction]98 %Mario Siddiqui MD Work Phone: [facility]02-06-2024 08:41-0500Systolic blood bfnxmviq297 mm[Hg]Mario Siddiqui MD Work Phone: [facility]11-14-2023 08:45-0500Diastolic blood ayedvqhj08 mm[Hg]Nicolasa Donovan YOUTH MINISTER.METER/[employer]LAY [employer]FTSM[employer] Work Phone: [facility]11-14-2023 08:45-0500Heart rate78 /min Nicolasa Donovan APRN.METER/[employer]SM[employer] Work Phone: [facility]11-14-2023 08:45-0500Systolic blood lqambslv181 mm[Hg]Nicolasa Donovan APRN.METER/[employer]LAY CRAFTSMAN Work Phone: [facility]11-14-2023 08:41-0500Body cm Nicolasa Donovan APRN.METER/[employer]LAY CRAFTSMAN Work Phone: [facility]11-14-2023 08:41-0500Body temperature 97.81 [degF]Nicolasa Donovan APRN.METER/[employer]LAY CRAFTSMAN Work Phone: [facility]11-14-2023 08:41-0500Body nyzxiy344.01 kgNicolasa Donovan APRN.METER/[employer]LAY CRAFTSMAN Work Phone: [facility]11-14-2023 08:41-0500Respiratory rate 20 /minNicolasa Donovan APRN.METER/[employer]LAY C[employer]FTSMAN Work Phone: [facility]11-14-2023 08:41-0476AaS6% (BldA) [Mass fraction]98 %Nicolasa Donovan APRN.METER/[employer]LAY CRAFTSMAN Work Phone: [facility]08-15-2023 08:58-0400Diastolic blood gpxijlle18 mm[Hg]Chair Vieira Work Phone: [facility]08-15-2023 08:58-0400Heart rate82 /min Chair Chenango Work Phone: [facility]08-15-2023 08:58-0400Respiratory rate 18 /minChair Chenango Work Phone: [place] [address]-15-2023 08:58-0400Systolic blood ogcrxodc877 mm[Hg]Chair Chenango Work Phone: [facility]04-11-2023 10:30-0400Diastolic blood lefuhmya91 mm[Hg]Chair Chenango Work Phone: [place] [address]-11-2023 10:30-0400Systolic blood yonylphl539 mm[Hg]Chair Mike Work Phone: [place] [address]-11-2023 10:04-0400Heart rate82 /min Chair Mike Work Phone: [facility]04-11-2023 10:04-0400Respiratory rate 18 /minChair Mike Work Phone: [place] [address]-11-2023 09:21-0400Body temperature 98.6 [degF]Chair Mike Work Phone: [place] [address]-11-2023 09:21-5572YvH2% (BldA) [Mass fraction]99 %Chair Mike Work Phone: [facility]04-04-2023 10:30-0400Body heightPelocoizabela Samayoa Other [employer] Other 04-04-2023 10:30-0400Body mass index (BMI) [Ratio] 34.99 kg/q3Uhzah Samayoa Other [employer] Other 04-04-2023 10:30-0400Body cewwlr764.01 kgPenova Samayoa Other [employer] Other 04-04-2023 10:30-0400Diastolic blood iltvvaum86 mm[Hg] Ivanna Samayoa Other [employer] Other 04-04-2023 10:30-1883UsJ9% (BldA) [Mass fraction]97 % Ivanna Samayoa Other [employer] Other 04-04-2023 10:30-0400Systolic blood idjfkdpk534 mm[Hg] Ivanna Samayoa Other [employer] Other 01-03-2023 09:22-0500Body nawliq476 cmMario Siddiqui MD Work Phone: [facility]01-03-2023 09:22-0500Body temperature 97.81 [degF]Mario Siddiqui MD Work Phone: [facility]01-03-2023 09:22-0500Body gfrigb711.64 kgMario Siddiqui MD Work Phone: [facility]01-03-2023 09:22-0500Diastolic blood tglnyovt34 mm[Hg]Mario Siddiqui MD Work Phone: [facility]01-03-2023 09:22-0500Heart rate98 /min Mario Siddiqui MD Work Phone: [facility]01-03-2023 09:22-0500Respiratory rate 16 /minMario Siddiqui MD Work Phone: [facility]01-03-2023 09:22-5286UzV4% (BldA) [Mass fraction]97 %Mario Siddiqui MD Work Phone: [facility]01-03-2023 09:22-0500Systolic blood mm[Hg]Mario Siddiqui MD Work Phone: [facility]11-28-2022 09:38-0500Diastolic blood avboyjgw67 mm[Hg]Chair Vieira Work Phone: [facility]11-28-2022 09:38-0500Heart wcqm333 /minChair Mike Work Phone: [facility]11-28-2022 09:38-0500Respiratory rate 18 /minChair Mike Work Phone: [facility]11-28-2022 09:38-0500Systolic blood apotmsic141 mm[Hg]Chair Mike Work Phone: [facility]11-28-2022 09:09-0500Body temperature 98.01 [degF]Chair Mike Work Phone: [facility]11-28-2022 09:09-4921HdV6% (BldA) [Mass fraction]98 %Chair Mike Work Phone: [facility]10-10-2022 08:51-0400Body yjcwgi010 cm Nicolasa Donovan APRN.METER/[employer]LAY CRAFTSM[employer] Work Phone: [facility]10-10-2022 08:51-0400Body temperature 98.6 [degF]Nicolasa Donovan APRN.METER/[employer]LAY CRAFTSMAN Work Phone: [facility]10-10-2022 08:51-0400Body jzyzoe694.28 kgNicolasa Donovan APRN.METER/RELAY CRAFTSMAN Work Phone: [facility]10-10-2022 08:51-0400Diastolic blood agrnkygq32 mm[Hg]Nicolasa Donovan APRN.METER/[employer]LAY CRAFTSMAN Work Phone: [facility]10-10-2022 08:51-0400Heart rate89 /min Nicolasa Donovan APRN.METER/[employer]LAY CRAFTSMAN Work Phone: [facility]10-10-2022 08:51-0400Respiratory rate 16 /minNicolasa Donovan APRN.METER/RELAY CRAFTSMAN Work Phone: [facility]10-10-2022 08:51-6800BuJ8% (BldA) [Mass fraction]98 %Nicolasa Donovan APRN.METER/RELAY CRAFTSMAN Work Phone: [facility]10-10-2022 08:51-0400Systolic blood pgygxkbd326 mm[Hg]Nicolasa Donovan APRN.METER/RELAY CRAFTSMAN Work Phone: [facility]07-18-2022 09:13-0400Body pzsqzu702 cm Mario Siddiqui MD Work Phone: [facility]07-18-2022 09:13-0400Body temperature 97 [degF]Mario Siddiqui MD Work Phone: [facility]07-18-2022 09:13-0400Body ujtqty272.01 kgMario Siddiqui MD Work Phone: [facility]07-18-2022 09:13-0400Diastolic blood urdnudrh97 mm[Hg]Mario Siddiqui MD Work Phone: [facility]07-18-2022 09:13-0400Heart rate82 /min Mario Siddiqui MD Work Phone: [facility]07-18-2022 09:13-0400Respiratory rate 16 /minMario Siddiqui MD Work Phone: [facility]07-18-2022 09:13-5062BtZ0% (BldA) [Mass fraction]98 %Mario Siddiqui MD Work Phone: [facility]07-18-2022 09:13-0400Systolic blood bnyjyxwd344 mm[Hg]Mario Siddiqui MD Work Phone: [facility]05-23-2022 10:08-0400Body oxieqt102 cm Nicolasa Donovan YOUTH MINISTER.METER/[employer]LAY CRAFTSMAN Work Phone: [facility]05-23-2022 10:08-0400Body temperature 97.7 [degF]Nicolasa Donovan APRN.METER/RELAY CRAFTSMAN Work Phone: [facility]05-23-2022 10:08-0400Body cidhxw758.65 kgNicolasa Donovan APRN.METER/RELAY CRAFTSMAN Work Phone: [facility]05-23-2022 10:08-0400Diastolic blood aujrjumm24 mm[Hg]Nicolasa Donovan YOUTH MINISTER.METER/RELAY CRAFTSMAN Work Phone: [facility]05-23-2022 10:08-0400Heart rate98 /min Nicolasa Donovan YOUTH MINISTER.METER/RELAY CRAFTSMAN Work Phone: [facility]05-23-2022 10:08-0400Respiratory rate 16 /minNicolasa Donovan YOUTH MINISTER.METER/RELAY CRAFTSMAN Work Phone: [facility]05-23-2022 10:08-8784XgW2% (BldA) [Mass fraction]97 %Nicolasa Donovan YOUTH MINISTER.METER/RELAY CRAFTSMAN Work Phone: [facility]05-23-2022 10:08-0400Systolic blood vopeihxe194 mm[Hg]Nicolasa Donovan YOUTH MINISTER.METER/RELAY CRAFTSMAN Work Phone: [facility]03-28-2022 10:45-0400Body .1 cmMario Siddiqui MD Work Phone: [facility]03-28-2022 10:45-0400Body temperature 98.01 [degF]Mario Siddiqui MD Work Phone: [facility]03-28-2022 10:45-0400Body puxtay280 kg Mario Siddiqui MD Work Phone: [facility]03-28-2022 10:45-0400Diastolic blood rrndmqwe56 mm[Hg]Mario Siddiqui MD Work Phone: [facility]03-28-2022 10:45-0400Heart rate83 /min Mario Siddiqui MD Work Phone: [facility]03-28-2022 10:45-0400Respiratory rate 16 /minMario Siddiqui MD Work Phone: [place] [address]-28-2022 10:45-2507JqI6% (BldA) [Mass fraction]99 %Mario Siddiqui MD Work Phone: [place] [address]-28-2022 10:45-0400Systolic blood skgoyihg473 mm[Hg]Mario Siddiqui MD Work Phone: [facility] Encounters Encounter DateEncounter TypeCare ProviderFacilityStart: 02-16-2025 End: 89-63-0829Dtpyim flowsheetNatalie A Felter YOUTH MINISTER-METER/RELAY CRAFTSMAN Work Phone: noMS Vieira DermatologyStart: 02-16-2025 End: 55-24-5706Xwcozo flowsheetNatalie A Felter YOUTH MINISTER-METER/RELAY CRAFTSMAN Work Phone: [facility]ermatologyStart: 02-16-2025 End: 49-77-4091Qjvkoyent encounterMatthew Dane Clark DO Work Phone: noms [facility] 230Start: 02-16-2025 ambulatoryNATALIE A FELTERNot AvailableStart: 02-16-2025 End: 45-06-5259Uejmrz outpatient visit 15 minutesNatalie A Felter YOUTH MINISTER-METER/RELAY CRAFTSMAN Work Phone: [facility] DermatologyComment on above:Seborrheic keratosis (Primary Dx); Melanocytic nevus of trunk; Lentigines; Capillary angioma; History of nevus excision; History of basal cell carcinoma; History of malignant melanoma of skin; Melanocytic nevus of lower extremity, unspecified laterality; Skin tag; Actinic keratosis; History of SCC (squamous cell carcinoma) of skinStart: 01-27-2025 End: 76-41-1590Ftjqezbsl Result EncounterGeneric External Data ProviderNOMS External Department UnsolicitedStart: 01-27-2025 End: 53-46-5784Bxyzwicel Result EncounterGeneric External Data ProviderNOMS External Department UnsolicitedStart: 01-27-2025 End: 75-69-6137ynszvkyqmjQTBEMMU CHARLES PETZNICKFacility:[facility] HospitalStart: 12-04-2024 End: 65-12-8478KqlsewVizfein [facility] Work Phone: [facility] PharmacyComment on above: Refill RequestStart: 11-17-2024 End: 57-84-0308Uegfew flowsheetNatalie A Felter YOUTH MINISTER-METER/RELAY CRAFTSMAN Work Phone: noms [facility] DERMStart: 11-17-2024 End: 49-60-0115Xgttug flowsheetNatalie A Felter YOUTH MINISTER-METER/RELAY CRAFTSMAN Work Phone: noms [facility] DERMStart: 11-17-2024 End: 55-70-2345Fjnulw outpatient visit 15 minutesNatalie A Felter YOUTH MINISTER-METER/RELAY CRAFTSMAN Work Phone: noms [facility] DERMComment on above:Melanocytic nevus of trunk (Primary Dx); Melanocytic nevus of lower extremity, unspecified laterality; Other atopic dermatitis; Seborrheic keratosis; Lentigines; Capillary angioma; Skin tag; History of malignant melanoma of skin; History of basal cell carcinoma; History of nevus excision; Actinic keratosis; Neoplasm of unspecified behavior of bone, soft tissue, and skinStart: 11-17-2024 End: 93-02-4358ukjpsrwdisAXAIIVE A ARMANDOERNot AvailableStart: 11-04-2024 End: 68-75-1632Abcfphrip Result EncounterGeneric External Data ProviderNOMS External Department UnsolicitedStart: 11-04-2024 End: 72-41-3954Nzbfxmnwm Result EncounterGeneric External Data ProviderNOMS External Department UnsolicitedStart: 11-04-2024 End: 22-81-0929zldhrunkykKWGGKTJ CHARLES PETZNICKFacility:[facility] Hospitaltart: 32-23-5206Nnhnrxqgy for general adult medical examination without abnormal findingsROMULO MartHolzer HospitalStart: 11-04-2024 End: 80-14-9255Dkwftk outpatient visit 15 minutesAdaluci Mariee MD Work Phone: Hematology/OncologyComment on above:Polycythemia vera (HCC) (Primary Dx)Start: 10-27-2024 End: 34-83-6990Kwvrblkkp encounterAdaluci Mariee MD Work Phone: Hematology/OncologyComment on above:Lab OrdersStart: 10-20-2024 End: 52-51-3332Shprhz outpatient visit 15 minutesMariluz Rubin MD Work Phone: [facility] CenterComment on above: Malignant melanoma of neck (Multi) (Primary Dx)Start: 10-20-2024 End: 95-56-4639gljwxyurepLOAFHIF N STEVENSBarney Children's Medical Centertart: 09-23-2024 End: 01-11-2353Ptxwnxqse Result EncounterGeneric External Data ProviderNOMS External Department UnsolicitedStart: 09-23-2024 End: 18-01-3441Toptzutux Result EncounterGeneric External Data ProviderNOMS External Department UnsolicitedStart: 09-23-2024 End: 92-88-9921sbzfbphjmcGhicl Aden Vieira Work Phone: Hematology/OncologyComment on above:Polycythemia vera (HCC) (Primary Dx)Start: 09-05-2024 End: 66-97-6424Bgvwio flowsheetMatthew C Petznick DO Work Phone: [facility] 230Start: 09-05-2024 End: 52-65-8926Jnjndl flowsheetMatthew C Petznick DO Work Phone: [facility] 230Start: 09-05-2024 End: 04-11-9994Irkcoeq encounter procedureMatthew C Petznick DO Work Phone: [facility] 230Comment on above:Routine general medical examination at a health care facility (Primary Dx); Obstructive sleep apnea; Primary hypertension (CMS/HCC); Benign prostatic hyperplasia with urinary obstruction; Acquired hypothyroidism (CMS/HCC); Obesity (BMI 30-39.9); Polycythemia vera; Malignant melanoma of neck (CMS/HCC); HyponatremiaStart: 09-05-2024 End: 55-67-7746Hluowqk encounter statusMatthew C Petznick DO Work Phone: [facility] Work Phone: Start: 09-05-2024 End: 80-31-2275vlubpejmjwXBNKYVE C PETZNICKNot AvailableStart: 08-25-2024 End: 04-51-6207Pacuyl follow up visit related to original Damian Rubin MD Work Phone: [facility] CenterComment on above: Malignant melanoma of neck (Multi) (Primary Dx)Start: 08-25-2024 End: 76-80-7438odrvdibprgLLMYAUX N [facility]tart: 08-15-2024 End: 64-41-1694Ziowebx encounter procedureXavi Wang MD Work Phone: [facility] DERMComment on above: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)Start: 08-15-2024 End: 95-93-1982mrjhfyoeflXZOLK A PETITTINot AvailableStart: 08-12-2024 End: 88-03-0429Avpokfyua Result EncounterGeneric External Data ProviderNOMS External Department UnsolicitedStart: 08-12-2024 End: 20-22-1773Sdlwyuskg Result EncounterGeneric External Data ProviderNOMS External Department UnsolicitedStart: 08-12-2024 End: 64-51-6587Qpjokvq encounter procedureMario Siddiqui MD Work Phone: Hematology/OncologyStart: 08-12-2024 End: 77-29-1188lladzkwokqSnsrs R Murphy MD Work Phone: Hematology/OncologyComment on above:Polycythemia vera (HCC) (Primary Dx); Lymphoma of ocular adnexa (HCC)Start: 08-11-2024 End: 89-65-1042udyhoctzddPIKOLLF CHARLES PETZNICKFacility:[facility] Hospitaltart: 08-11-2024 End: 22-78-3723Nsyzefy encounter procedureCathelder Salazar MD Work Phone: OphthalmologyComment on above:Post-operative state (Primary Dx); Trichiasis of left lower eyelid without entropionStart: 08-08-2024 End: 26-20-6578oumicngofiVyufsozLos Clark DO Work Phone: [facility] Work Phone: Start: 08-08-2024 End: 46-55-1162Xqqertj encounter procedureRomulo Clark DO Work Phone: [facility] Work Phone: Start: 08-07-2024 End: 98-66-7279Ummvjqyzm Result EncounterGeneric External Data ProviderNOMS External Department UnsolicitedStart: 08-07-2024 End: 55-58-9858Gqpciyhuv Result EncounterGeneric External Data ProviderNOMS External Department UnsolicitedStart: 08-07-2024 End: 86-83-5695nbmimpvwlkGRMDJUA N STEVENSBarney Children's Medical Centertart: 08-07-2024 End: 42-97-0955Gzrwbqlkuv hospital visit by Prashanth Rubin MD Work Phone: uh [facility] [place] ORComment on above: Malignant melanoma of neck (Multi)Start: 08-04-2024 End: 65-44-1141Ntylph flowsheetNatalie A Felter YOUTH MINISTER-METER/RELAY CRAFTSMAN Work Phone: noms [facility] DERMStart: 08-04-2024 End: 60-41-8213Gnzrtl flowsheetNatalie A Felter YOUTH MINISTER-METER/RELAY CRAFTSMAN Work Phone: noms [facility] DERMStart: 08-04-2024 End: 66-07-5343Igqexq outpatient visit 15 minutesNatalie A Felter YOUTH MINISTER-METER/RELAY CRAFTSMAN Work Phone: noms [facility] DERMComment on above:Melanocytic nevus of trunk (Primary Dx); Actinic keratosis; Neoplasm of unspecified behavior of bone, soft tissue, and skin; Capillary angioma; Lentigines; Seborrheic keratosis; History of basal cell carcinoma; History of malignant melanoma of skinStart: 08-04-2024 End: 45-11-8253ugwmczmwyzYFQUMWQ A FELTERNot AvailableStart: 07-21-2024 End: 97-08-0894Fwoxds follow up visit related to original Damian Rubin MD Work Phone: uh [facility] CenterComment on above: Malignant melanoma of neck (Multi) (Primary Dx)Start: 07-21-2024 End: 06-61-8134syxsfvcnpuYUHGLVL [facility]: 07-03-2024 End: 11-10-0827Xmwddrvnf Result EncounterGeneric External Data ProviderNOMS External Department UnsolicitedStart: 07-03-2024 End: 65-09-4974Fzpgrsdui Result EncounterGeneric External Data ProviderNOMS External Department UnsolicitedStart: 07-03-2024 End: 02-55-1143gjutwwuuhtSLYHBOU [facility]tart: 07-03-2024 End: 44-30-0383Ebvlichdhs hospital visit by Prashanth Rubin MD Work Phone: [facility] [place] ORComment on above: Malignant melanoma of neck (Multi) (Primary Dx)Start: 07-02-2024 End: 02-09-0161Ubhhdmxtv Result EncounterGeneric External Data ProviderNOMS External Department UnsolicitedStart: 07-02-2024 End: 94-12-5510Onwrlscit Result EncounterGeneric External Data ProviderNOMS External Department UnsolicitedStart: 07-02-2024 End: 21-78-4410quzwymbffpLQEEMZBFisher-Titus Medical Centertart: 07-02-2024 End: 03-11-7817Tbwsepjrtn hospital visit by physicianS10 Thomas StreetComment on above:ArrivedMalignant melanoma of neck (Multi)Start: 07-01-2024 End: 17-44-6407Xmuulsmop Result EncounterGeneric External Data ProviderNOMS External Department UnsolicitedStart: 07-01-2024 End: 98-50-9257Jrztuurhh Result EncounterGeneric External Data ProviderNOMS External Department UnsolicitedStart: 07-01-2024 End: 43-38-8183Oxzodg follow up visit related to original Elida Shook MD Work Phone: OphthalmologyComment on above:Anophthalmos of right eye (Primary Dx); Post-operative stateStart: 07-01-2024 End: 60-64-2624ygyhpkubjmOyqxr Aden Vieira Work Phone: Hematology/OncologyComment on above:Polycythemia vera (HCC) (Primary Dx)Start: 06-26-2024 End: 94-01-4952Eimepndcp Result EncounterGeneric External Data ProviderNOMS External Department UnsolicitedStart: 06-26-2024 End: 66-79-5329Gtysetbqa Result EncounterGeneric External Data ProviderNOMS External Department UnsolicitedStart: 06-26-2024 End: 24-78-3187kvamdcqoudWSAXXUI N [facility]tart: 06-25-2024 End: 98-73-3592Qdprlw-up encounterNohelia Shook MD Work Phone: OphthalmologyStart: 06-25-2024 End: 23-00-5454jrwzqgufhxJYWKGDP C [facility]: 06-24-2024 End: 65-10-3877Ltcvzyyqm encounterCathelder Salazar MD Work Phone: OphthalmologyComment on above:Patient UpdateStart: 06-23-2024 End: 72-42-4615Qktggkagl Result EncounterGeneric External Data ProviderNOMS External Department UnsolicitedStart: 06-23-2024 End: 25-57-5973Lmteqohvw Result EncounterGeneric External Data ProviderNOMS External Department UnsolicitedStart: 06-23-2024 End: 23-73-7085Knuxbdepl encounterGabo Fuchs MD Work Phone: OphthalmologyComment on above:Patient UpdateStart: 06-23-2024 End: 85-21-5500cyglivsktaZLIGJUD CHARLES [facility]: 06-20-2024 End: 28-74-5361RasyrzTlbgh Patel MD Work Phone: OphthalmologyComment on above:PainStart: 06-18-2024 End: 45-61-3497Xofihll encounter procedureEmily A Petitti MD Work Phone: [facility] DERMComment on above:Basal cell carcinoma of skin of left upper limb, including shoulder (Primary Dx); Actinic keratosisStart: 06-18-2024 End: 71-20-0340aqjqspvourEOGPJ A PETITTINot AvailableStart: 06-18-2024 End: 68-90-8602Vvhobq outpatient visit 25 minutesMatthew Dane Susannelaleah DO Work Phone: [facility] FM 230Comment on above:Primary hypertension (CMS/HCC) (Primary Dx); Other specified types of non-hodgkin lymphoma, unspecified site (CMS/HCC); Obesity (BMI 30-39.9); Extranodal lymphoma (CMS/HCC); Polycythemia vera (CMS/HCC); Malignant melanoma of neck (CMS/HCC); Obstructive sleep apnea; Hyponatremia; Acquired hypothyroidism (CMS/HCC); Syncope, unspecified syncope type; Chest pain, unspecified typeStart: 06-17-2024 End: 25-16-8912uhsltdxqvtMKKUOLK MAYE CLARKFacility: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; Hemorrhagic choroidal detachment of left eye; Aphakia, right eye; 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Start: 06-17-2024 End: 76-92-5201Qdrvscttu Result EncounterGeneric External Data ProviderNOMS External Department UnsolicitedStart: 06-17-2024 End: 12-34-7449Tsahyhpuc Result EncounterGeneric External Data ProviderNOMS External Department UnsolicitedStart: 06-17-2024 End: 16-99-3274Mjdtewfmi department patient visitMatthew Eyad DO Work Phone: [facility] Work Phone: Start: 06-16-2024 End: 07-20-3458Nrgier Terrance Mendosa PA-C Work Phone: OphthalmologyComment on above:Neurotrophic keratoconjunctivitis of right eye (Primary Dx)Refill RequestStart: 06-13-2024 End: 67-81-6398dlbyupxvgySNEHVXJ CHARLES PETZNICKFacility:[facility] Hospitaltart: 06-13-2024 End: 07-56-3980Lgsnkpa encounter procedureMeri Domingo MD Work Phone: OphthalmologyComment on above:Neurotrophic keratoconjunctivitis of right eye (Primary Dx)Start: 06-12-2024 End: 34-93-6288Obppbixjq encounterGabo Fuchs MD Work Phone: OphthalmologyStart: 06-10-2024 End: 69-98-8169Uabqnps encounter procedureSpeter Brooks MD Work Phone: OphthalmologyComment on above:Neurotrophic keratoconjunctivitis of right eye (Primary Dx)Start: 06-10-2024 End: 13-71-7110Utwazmtja encounterGabo Fuchs MD Work Phone: OphthalmologyComment on above:Patient UpdateStart: 06-09-2024 End: 10-86-9536Cfsaoo outpatient new 60 minutesMariluz Rubin MD Work Phone: uh [facility] CenterComment on above: Malignant melanoma of neck (Multi) (Primary Dx)Start: 06-09-2024 End: 80-48-3836fzsszrermgDBCPRYW N STEVENSBarney Children's Medical Centertart: 06-04-2024 End: 41-73-5702Qatfcbgjc encounterGabo Fuchs MD Work Phone: OphthalmologyStart: 06-03-2024 End: 74-28-6692Phdhahc encounter procedureSerg Foster MD PhD Work Phone: [facility] AndersonComment on above:Basal cell carcinoma (BCC) of skin of noseStart: 06-03-2024 End: 30-54-3407cobbmqrwtaZGPSZ T [facility] CampusStart: 05-22-2024 End: 26-39-9044iapwzxzavgYNJBXCM CHARLES PETZNICKFacility:[facility] Hospitaltart: 05-22-2024 End: 76-44-9814Fbsuzlv encounter procedureGabo Fuchs MD Work Phone: OphthalmologyComment on above:Neurotrophic keratoconjunctivitis of right eye (Primary Dx); Trichiasis of right upper eyelid; S/P PKP (penetrating keratoplasty); Other vitreous opacities, right eye; Aphakia, right eye; Hemorrhagic choroidal detachment of left eyeStart: 05-21-2024 End: 14-38-1046Thmlgd OnlyGabo Fuchs MD Work Phone: OphthalmologyComment on above: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)Start: 05-20-2024 End: 93-80-3721Qmseog outpatient new 45 minutesNatalie Irasema Marquez YOUTH MINISTER-METER/RELAY CRAFTSMAN Work Phone: [facility] DERMComment on above:Seborrheic keratosis; Actinic keratosis; Melanocytic nevus of trunk; Lentigines; Capillary angioma; Neoplasm of unspecified behavior of bone, soft tissue, and skinStart: 05-20-2024 End: 41-54-6330Azuygitqy Result EncounterGeneric External Data ProviderNOMS External Department UnsolicitedStart: 05-20-2024 End: 18-41-6513Biszvtixp Result EncounterGeneric External Data ProviderNOMS External Department UnsolicitedStart: 05-20-2024 End: 59-48-5679pqkwxjvnatOFHAJEB A FELTERNot AvailableStart: 05-20-2024 End: 70-57-9539barpyusfftAXSVNRI CHARLES PETZNICKFacility:[facility]tart: 05-20-2024 End: 41-89-4904Tetjmns encounter procedureMarta Salazar MD Work Phone: OphthalmologyComment on above:Neurotrophic keratoconjunctivitis of right eye (Primary Dx); Trichiasis of right upper eyelidStart: 05-20-2024 End: 38-84-5308Hfjaig outpatient visit 15 minutesHolly Tang PA-C Work Phone: Hematology/OncologyComment on above:Polycythemia vera (HCC) (Primary Dx); Lymphoma of ocular adnexa (HCC)Start: 05-20-2024 End: 46-41-5638qxmarofxuzYGBDZ M MUSSERFacility:[facility] Hospitaltart: 05-16-2024 End: 61-32-1644Wcwivkdob encounterGabo Fuchs MD Work Phone: OphthalmologyComment on above:Patient UpdateStart: 05-16-2024 End: 42-36-0144hhmlrsolrjRIZWZQXAlondra Hernándezcility:[facility] Hospitaltart: 05-16-2024 End: 32-44-6947Hwmwly outpatient visit 15 minutesMariam Roy MD Work Phone: OphthalmologyComment on above:Neurotrophic keratoconjunctivitis of right eye (Primary Dx); S/P PKP (penetrating keratoplasty); Aphakia, right eye; Trichiasis of right upper eyelidStart: 04-14-2024 End: 48-01-1582Kuebcwojz encounterTaylor Khalil RNHematology/OncologyComment on above:Hydrea RX problems with refillStart: 04-08-2024 End: 98-99-5392Uzvutpxxm Result EncounterGeneric External Data ProviderNOMS External Department UnsolicitedStart: 04-08-2024 End: 43-30-0112Uqdfcpktn Result EncounterGeneric External Data ProviderNOMS External Department UnsolicitedStart: 04-08-2024 End: 57-77-5077Bozkvcnqm encounterTaylor Khalil RNHematology/OncologyStart: 04-08-2024 End: 07-63-8210mowvzmgvcpXBFEWSWAlondra Shoemakerity:[facility] Hospitaltart: 02-26-2024 End: 93-99-1284Xmhnqimkd Result EncounterGeneric External Data ProviderNOMS External Department UnsolicitedStart: 02-26-2024 End: 72-21-8841Zbqssouvw Result EncounterGeneric External Data ProviderNOMS External Department UnsolicitedStart: 02-26-2024 End: 36-64-1771Yokham outpatient visit 15 minutesMinree Ramírez [employer] Work Phone: Hematology/OncologyComment on above:Polycythemia vera (HCC) (Primary Dx); Lymphoma of ocular adnexa (HCC)Start: 02-26-2024 End: 90-62-7780knksrhygjxArjen [address] Work Phone: Hematology/OncologyComment on above:Polycythemia vera (HCC) (Primary Dx)Start: 01-15-2024 End: 65-65-2520Qnbapdp encounter procedureGabo Fuchs MD Work Phone: OphthalmologyComment on above:Neurotrophic keratoconjunctivitis of right eye (Primary Dx); Exposure keratoconjunctivitis of right eye; S/P PKP (penetrating keratoplasty); Trichiasis of left lower eyelid without entropion; Trichiasis of right lower eyelidStart: 01-09-2024 End: 20-80-0693Fsejrujyq Result EncounterGeneric External Data ProviderNOMS External Department UnsolicitedStart: 01-09-2024 End: 63-09-3092Sibmjsxol Result EncounterGeneric External Data ProviderNOMS External Department UnsolicitedStart: 01-04-2024 End: 33-86-7648MmsnpcDgmyzbz G Cullen RN Work Phone: Hematology/OncologyComment on above:Refill Request Start: 11-28-2023 End: 24-73-7872gqlyhvqbbjBzcub [address] Work Phone: Hematology/OncologyComment on above:Polycythemia vera (HCC) (Primary Dx)Start: 11-28-2023 End: 54-03-5076Qraqoz outpatient visit 15 minutesMinree Desiree [employer] Work Phone: Hematology/OncologyComment on above:Polycythemia vera (HCC) (Primary Dx)Start: 84-78-9063Zoaxzagyw encounterMario Siddiqui MD Work Phone: Hematology/OncologyComment on above:Lab OrdersStart: 10-09-2023 End: 31-05-6764iokxfulwcuOeszv Aden Vieira Work Phone: Hematology/OncologyComment on above:Polycythemia vera (HCC) (Primary Dx)Start: 10-02-2023 End: 42-51-3356Fastkkz encounter procedureGabo Fuchs MD Work Phone: OphthalmologyComment on above:Neurotrophic keratoconjunctivitis of right eye (Primary Dx); Exposure keratoconjunctivitis of right eye; Trichiasis of left lower eyelid without entropion; S/P PKP (penetrating keratoplasty); Aphakia, right eyeStart: 08-28-2023 End: 66-09-7096lskwpkvkxjPvjiu R Murphy MD Work Phone: Hematology/OncologyComment on above:Polycythemia vera (HCC) (Primary Dx); Lymphoma of ocular adnexa (HCC); Acquired hypothyroidismStart: 08-28-2023 End: 47-92-6913Ycmtdgy encounter Nikki Siddiqui MD Work Phone: Hematology/OncologyStart: 08-16-2023 End: 70-07-1055Tvpmphv encounter procedureGabo Fuchs MD Work Phone: OphthalmologyComment on above: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); Exposure keratoconjunctivitis of left eye; Aphakia, right eyeStart: 08-10-2023 End: 52-40-3326hhcxajtqdmEYAllie Clark Work Phone: [facility] Work Phone: Start: 08-10-2023 End: 85-08-0522Dgfgxow encounter procedureDO Romulo Clark Work Phone: [facility] Work Phone: Start: 08-03-2023 End: 84-28-2266Gcinxgr encounter procedureDO Romulo Davissaqib Work Phone: [facility] Work Phone: Start: 08-03-2023 End: 08-34-7357vhassygcwtMB Romulo Davissaqib Work Phone: [facility] Work Phone: Start: 07-23-2023 End: 67-50-9993Mkapimj encounter procedureGabo Fuchs MD Work Phone: OphthalmologyComment on above: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); Trichiasis without entropion of right upper eyelid; Trichiasis of right lower eyelid; Neurotrophic keratoconjunctivitis of right eye; Exposure keratoconjunctivitis of right eye; S/P PKP (penetrating keratoplasty)Start: 79-88-8150Vfveyxuzz encounterMoabiodun Ruiz MD Work Phone: OphthalmologyStart: 07-20-2023 End: 73-92-3873Yubqqml encounter procedureGabo Fuchs MD Work Phone: OphthalmologyComment on above: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); Trichiasis without entropion of right upper eyelid; Trichiasis of right lower eyelid; Neurotrophic keratoconjunctivitis of right eye; Exposure keratoconjunctivitis of right eyeStart: 74-35-0525Vxyslmgia encounter Gabo Fuchs MD Work Phone: OphthalmologyComment on above:Eye Problem Right Eye Start: 07-17-2023 End: 28-00-3264njccgrsltiAfgzw Aden [place] Work Phone: Hematology/OncologyComment on above:Polycythemia vera (HCC) (Primary Dx)Start: 10-11-1842Cphzdxteh encounterGabo Fuchs MD Work Phone: OphthalmologyStart: 06-14-2023 End: 76-37-1863Oxcorgb encounter procedureaGbo Fuchs MD Work Phone: OphthalmologyComment on above:Trichiasis without entropion of right upper eyelid (Primary Dx); Trichiasis of left lower eyelid without entropion; Neurotrophic keratoconjunctivitis of right eye; Exposure keratoconjunctivitis of right eye; S/P PKP (penetrating keratoplasty); 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Start: 06-05-2023 End: 48-85-4748hbosjeqkbrFfehd Aden Vieira Work Phone: Hematology/OncologyComment on above:Polycythemia vera (HCC) (Primary Dx)Polycythemia vera (HCC) (Primary Dx); Lymphoma of ocular adnexa (HCC); Acquired hypothyroidismStart: 06-05-2023 End: 30-37-6569Fhwzujw encounter procedureMario Siddiqui MD Work Phone: SANDUSKYStart: 04-17-2023 End: 42-61-6082Xiqivbc encounter procedureGabo Fuchs MD Work Phone: OphthalmologyComment on above: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); Trichiasis without entropion of right upper eyelid; Trichiasis of left lower eyelid without entropion; Neurotrophic keratoconjunctivitis of right eye; Exposure keratoconjunctivitis of right eye; S/P PKP (penetrating keratoplasty); 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; Aphakia, right eye; Trichiasis of right lower eyelidStart: 17-50-0132Tmtvyflny encounterGabo Fuchs MD Work Phone: OphthalmologyComment on above:Patient UpdateStart: 25-30-3147GcwdgqYftwjofs Smith RNHematology/OncologyComment on above:Refill RequestStart: 03-19-2023 End: 25-46-7517Cysdhwn encounter procedureGabo Fuchs MD Work Phone: OphthalmologyComment on above:Trichiasis without entropion of right upper eyelid (Primary Dx); Central corneal ulcer of right eye; Corneal scar, right eye; S/P PKP (penetrating keratoplasty); 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; Aphakia, right eyeStart: 24-56-4426Llyvdlucc encounterGabo Fuchs MD Work Phone: OphthalmologyComment on above:Patient QuestionStart: 03-13-2023 End: 05-64-2014LkuqeyAkwycrq [facility] Work Phone: Hematology/OncologyComment on above:Refill Request Polycythemia vera (HCC) (Primary Dx); Lymphoma of ocular adnexa (HCC); Acquired hypothyroidism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); Corneal scar, right eye; Trichiasis without entropion of right upper eyelid; Trichiasis of left lower eyelid without entropion; 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; S/P PKP (penetrating keratoplasty); 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; Aphakia, right eye; Exposure keratoconjunctivitis of right eye; Neurotrophic keratoconjunctivitis of right eyeStart: 91-04-2470Mwoozmsbg encounterGabo Fuchs MD Work Phone: OphthalmologyStart: 36-77-4537InvlmcTgtrzzl M Goshe MD Work Phone: OphthalmologyComment on above:Refill RequestStart: 12-12-2022 End: 84-10-4358sqjvqluazyXkfxu [address] [place] Work Phone: Hematology/OncologyComment on above:Polycythemia vera (HCC) (Primary Dx)Start: 11-07-2022 End: 87-27-0460Enbdrpo encounter procedureGabo Fuchs MD Work Phone: OphthalmologyComment on above:Corneal scar, right eye (Primary Dx); Trichiasis without entropion of right upper eyelid; Trichiasis of left lower eyelid without entropion; 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; Neurotrophic keratoconjunctivitis of right eye; Aphakia, right eye; S/P PKP (penetrating keratoplasty); Exposure keratoconjunctivitis of right eyeStart: 36-10-8476Hxawiyalz encounter Carolann Manuel RNHematology/OncologyComment on above:OrdersStart: 09-27-2022 End: 63-66-7006Kiemyey encounter procedureGabo Fuchs MD Work Phone: OphthalmologyComment on above:Corneal scar, right eye (Primary Dx); Trichiasis without entropion of right upper eyelid; Trichiasis of left lower eyelid without entropion; 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; Neurotrophic keratoconjunctivitis of right eye; Aphakia, right eye; S/P PKP (penetrating keratoplasty); Exposure keratoconjunctivitis of right eyeStart: 08-21-2022 End: 66-20-7306Anwuejd encounter Cari Price MD Work Phone: OphthalmologyComment on above: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); Corneal scar, right eyeStart: 77-37-0481Oyqorqpvm encounterJimmie Mathew MD Work Phone: OphthalmologyComment on above:Returning Patient's Call Start: 43-71-1677Sbsulnono encounterEdcierra Price MD Work Phone: OphthalmologyComment on above:Patient UpdateStart: 08-18-2022 End: 87-45-5999Ynwihab encounter Cari Price MD Work Phone: OphthalmologyComment on above: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)Start: 16-87-9748Mlwxmgmjt encounterGabo Fuchs MD Work Phone: OphthalmologyComment on above:Patient QuestionStart: 08-08-2022 End: 70-71-2927hrzjdxdxdzVgoay [address] [place] Work Phone: Hematology/OncologyComment on above:Polycythemia vera (HCC) (Primary Dx)Start: 08-02-2022 End: 91-20-6889Gdctzxj encounter procedureGabo Fuchs MD Work Phone: OphthalmologyComment on above: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); Trichiasis of right upper eyelid; Neurotrophic keratoconjunctivitis of right eye; 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Start: 86-15-3286Zjjrzd outpatient visit 15 minutesPeggy [facility] SouthStart: 08-01-2022 End: 85-07-0078cywoldgzweZK Romulo Petsaqib Work Phone: [facility] Work Phone: Start: 08-01-2022 End: 10-36-3872Zrtnstc encounter procedureDO Romulo Davisnelaleah Work Phone: [facility] Work Phone: Start: 07-25-2022 End: 46-58-0802Mobdjiv encounter procedureGabo Fuchs MD Work Phone: OphthalmologyComment on above: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); Trichiasis of right upper eyelid; Neurotrophic keratoconjunctivitis of right eye; 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; S/P PKP (penetrating keratoplasty); Aphakia, right eyeStart: 28-94-7188Lrjxjwygp encounterGabo Fuchs MD Work Phone: OphthalmologyComment on above:Patient UpdateStart: 07-19-2022 End: 92-80-2531Xtguhke encounter procedureGabo Fuchs MD Work Phone: OphthalmologyComment on above: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); Neurotrophic keratoconjunctivitis of right eye; 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; S/P PKP (penetrating keratoplasty); Aphakia, right eyeStart: 05-16-2022 End: 73-89-2615Lgublkt encounter procedureGabo Fuchs MD Work Phone: OphthalmologyComment on above:Trichiasis of right upper eyelid (Primary Dx); S/P PKP (penetrating keratoplasty); Neurotrophic keratoconjunctivitis of right eye; 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; Central corneal ulcer of right eyeStart: 05-02-2022 End: 62-43-9531saganwukanStigt R Murphy MD Work Phone: Hematology/OncologyComment on above:Polycythemia vera (HCC) (Primary Dx); Lymphoma of ocular adnexa (HCC); Acquired hypothyroidismStart: 05-02-2022 End: 77-49-6673Ripzbnt encounter procedureMario Siddiqui MD Work Phone: SANDUSKYStart: 04-12-2022 End: 84-56-6994Ubyoacy encounter procedureGabo Fuchs MD Work Phone: OphthalmologyComment on above:Trichiasis of right upper eyelid (Primary Dx); S/P PKP (penetrating keratoplasty); Neurotrophic keratoconjunctivitis of right eye; 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; Central corneal ulcer of right eye; Conjunctival abrasion, right, initial encounterStart: 41-72-3963Cczregtyh encounterJebridgette Cassidy RNHematology/OncologyComment on above:Patient Question Start: 03-27-2022 End: 10-28-9486nvqqqyophbIxuin Aden Vieira Work Phone: Hematology/OncologyComment on above:Polycythemia vera (HCC) (Primary Dx)Start: 54-97-0182Ouynyennz for general adult medical examination without abnormal findingsMITTTriHealthtart: 03-14-2022 End: 56-48-4697xbqykzjztlEBLKFKK PETZNICKFacility:J1Eyivy: 03-14-2022 End: 68-39-7126Yupzhusnk for general adult medical examination without abnormal findingsMATTHEW PETZNICKFacility:N0Govec: 02-28-2022 End: 29-53-7113Voabxpy encounter procedureGabo Fuchs MD Work Phone: OphthalmologyComment on above: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); S/P PKP (penetrating keratoplasty); Trichiasis of left lower eyelid without entropionStart: 49-50-7303Gjrwmidebra Lo MD Work Phone: OphthalmologyComment on above:Refill RequestStart: 02-07-2022 End: 22-55-3547Zyveyzx encounter procedureGabo Fuchs MD Work Phone: OphthalmologyComment on above: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); S/P PKP (penetrating keratoplasty); Exposure keratoconjunctivitis of right eye; Neurotrophic keratoconjunctivitis of right eye; Trichiasis of left lower eyelid without entropionStart: 02-06-2022 End: 52-10-8823joorvfjhtaEyzmu Martinez APRN.METER/[employer]RAFTSM[employer] Work Phone: Hematology/OncologyComment on above:Polycythemia vera (HCC) (Primary Dx); Lymphoma of ocular adnexa (HCC)Start: 02-06-2022 End: 71-38-2563Nyuitln encounter Leanna Donovan APRN.METER/[employer]LAY CRAFTSM[employer] Work Phone: SANDUSKYStart: 86-65-6597MoutmrNrpeifw M Goshe MD Work Phone: OphthalmologyComment on above:Refill RequestStart: 38-66-2132Ebshqztms encounterGabo Fuchs MD Work Phone: OphthalmologyComment on above:AppointmentStart: 01-04-2022 End: 85-60-8858Sgcbdjr encounter procedureGabo Fuchs MD Work Phone: OphthalmologyComment on above:S/P PKP (penetrating keratoplasty) (Primary Dx); Exposure keratoconjunctivitis of right eye; Neurotrophic keratoconjunctivitis of right eye; Trichiasis of left lower eyelid without entropionStart: 00-39-5752Uwpilyzwj encounterGabo Fuchs MD Work Phone: OphthalmologyComment on above:AppointmentStart: 12-27-2021 End: 70-59-2535iheosanjlbVO DOCTOR MISCFacility:A4Uqagd: 20-31-0346Roegohbho encounterTaylor Khalil RNHematology/OncologyComment on above:ResultsStart: 12-26-2021 End: 37-54-3810ensigfhanxKexka Aden Vieira Work Phone: Hematology/OncologyComment on above:Polycythemia vera (HCC) (Primary Dx)Start: 39-70-1067Pkaoljxds encounterGabo Fuchs MD Work Phone: OphthalmologyComment on above:Patient QuestionStart: 11-16-2021 End: 27-03-4497Xiwjkqf encounter procedureGabo Fuchs MD Work Phone: OphthalmologyComment on above:S/P PKP (penetrating keratoplasty) (Primary Dx); Exposure keratoconjunctivitis of right eye; Neurotrophic keratoconjunctivitis of right eyeStart: 80-52-3237Sjukdqbca encounterGabo Fuchs MD Work Phone: OphthalmologyComment on above:Refill RequestStart: 11-14-2021 End: 51-13-9801lutdjoygioEbgyh R Murphy MD Work Phone: Hematology/OncologyComment on above:Polycythemia vera (HCC) (Primary Dx); Lymphoma of ocular adnexa (HCC); Acquired hypothyroidismStart: 11-14-2021 End: 87-46-3555Ojtumox encounter Nikki Siddiqui MD Work Phone: SANDUSKYStart: 10-26-2021 End: 40-71-7598Khflgep encounter procedureGabo Fuchs MD Work Phone: OphthalmologyComment on above:S/P PKP (penetrating keratoplasty) (Primary Dx); Peripheral ulcerative keratitis, right; Exposure keratoconjunctivitis of right eyeStart: 20-21-5306JxtdzpLyrbuyn M Goshe MD Work Phone: OphthalmologyComment on above:Refill RequestStart: 16-81-8801Cnxyazcij encounterNasir Garrett RNHematology/OncologyComment on above:Medication QuestionStart: 10-17-2021 End: 92-11-0976yydxhgfmaqLgcft [address] [place] Work Phone: Hematology/OncologyComment on above:Polycythemia vera (HCC) (Primary Dx)Start: 85-18-6917PumlknTnwdhse Sessler RN Work Phone: Hematology/OncologyComment on above:Refill Request (Hydrea)Start: 10-06-2021 End: 66-90-3705Cbmlrgw encounter procedureGabo Fuchs MD Work Phone: OphthalmologyComment on above: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); S/P PKP (penetrating keratoplasty); Neurotrophic keratoconjunctivitis of both eyes; Exposure keratoconjunctivitis of right eyeStart: 09-27-2021 End: 91-13-8760Rgmiaxt encounter procedureGabo Fuchs MD Work Phone: OphthalmologyComment on above: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); S/P PKP (penetrating keratoplasty); Neurotrophic keratoconjunctivitis of both eyes; Exposure keratoconjunctivitis of right eyeStart: 09-20-2021 End: 16-92-9088Epijycr encounter procedureEcho Lui MD Work Phone: OphthalmologyComment on above:Neurotrophic keratoconjunctivitis of both eyes (Primary Dx); S/P PKP (penetrating keratoplasty); Central corneal ulcer of right eyeStart: 09-19-2021 End: 25-28-9307fbhfvivgkqMarwt Martinez APRN.MET[employer]RAFTSM[employer] Work Phone: Hematology/OncologyComment on above:Polycythemia vera (HCC) (Primary Dx); Lymphoma of ocular adnexa (HCC); Acquired hypothyroidismStart: 09-19-2021 End: 36-52-5909Ejfrqrn encounter procedureNicolasa Donovan APRN.METER/[employer] CRAFTSMAN Work Phone: SANDUSKYStart: 09-15-2021 End: 19-56-5797Lgzugft encounter procedureAce Flores MD Work Phone: OphthalmologyComment on above:Neurotrophic keratoconjunctivitis of both eyes (Primary Dx); Exposure keratoconjunctivitis of right eye; Central corneal ulcer of right eyeStart: 09-07-2021 End: 29-83-0555Zrpudfj encounter procedureGabo Fuchs MD Work Phone: OphthalmologyComment on above: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); Exposure keratoconjunctivitis of right eye; S/P PKP (penetrating keratoplasty); Neurotrophic keratoconjunctivitis of both eyesStart: 56-09-7852Okqsqecmq encounterGabo Fuchs MD Work Phone: OphthalmologyComment on above:Eye Pain ODStart: 09-05-2021 End: 33-70-4937Rodzcqb encounter procedureGabo Fuchs MD Work Phone: OphthalmologyComment on above: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); Exposure keratoconjunctivitis of right eye; S/P PKP (penetrating keratoplasty); Trichiasis without entropion left lower eyelidStart: 08-30-2021 End: 32-38-0640Wkcqzrq encounter procedureGabo Fuchs MD Work Phone: OphthalmologyComment on above: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); Exposure keratoconjunctivitis of right eye; Neurotrophic keratoconjunctivitis of both eyes; S/P PKP (penetrating keratoplasty)Start: 08-24-2021 End: 55-65-6344Jswfrxl encounter procedureGabo Fuchs MD Work Phone: OphthalmologyComment on above: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); Exposure keratoconjunctivitis of right eye; Neurotrophic keratoconjunctivitis of both eyesStart: 08-22-2021 End: 65-46-6874bcuadsvbpuMmbvu [address] [place] Work Phone: Hematology/OncologyComment on above:Polycythemia vera (HCC) (Primary Dx)Start: 08-18-2021 End: 61-44-5950Fcezqav encounter procedureGabo Fuchs MD Work Phone: OphthalmologyComment on above:S/P PKP (penetrating keratoplasty) (Primary Dx); Perforated corneal ulcer of right eye; Exposure keratoconjunctivitis of right eye; Neurotrophic keratoconjunctivitis of both eyes; Cornea scar; Trichiasis without entropion left lower eyelidStart: 08-04-2021 End: 96-69-6145Lpuigdv encounter procedureGabo Fuchs MD Work Phone: OphthalmologyComment on above: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); Exposure keratoconjunctivitis of right eye; Neurotrophic keratoconjunctivitis of both eyes; Cornea scar; S/P PKP (penetrating keratoplasty)Start: 08-03-2021 End: 33-34-6904Uvlehs OnlyGabo Fuchs MD Work Phone: OphthalmologyComment on above: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); Exposure keratoconjunctivitis of right eyeCornea scar (Primary Dx); S/P PKP (penetrating keratoplasty); Neurotrophic keratoconjunctivitis of both eyesStart: 08-02-2021 End: 41-94-1005Sbditbu encounter procedureDO Romulo Clark Work Phone: [facility]-Sleep LabStart: 07-25-2021 End: 19-40-4906mxdynstughSyxan R Murphy MD Work Phone: Hematology/OncologyComment on above:Polycythemia vera (HCC) (Primary Dx)Start: 07-25-2021 End: 93-76-0232Efpefjv encounter Nikki Siddiqui MD Work Phone: SANDUSKYStart: 06-01-2021 End: 11-53-1571xlhroycmvfPS BRIAN MURPHYFacility:M9Chqzj: 04-13-2021 End: 61-65-5024zcifhjjnazRqjcgzg Charles PetznickFacility:CANCStart: 04-05-2021 End: 44-10-4626Lbuptnmzrkier examination Luann Siddiqui MD Work Phone: [facility] Work Phone: Start: 91-63-8309xisoevfenbAuiavghAlondra Clark Facility:CANCStart: 03-02-2021 End: 06-35-2544ZlfbrbvXexxqmo Charles PetznickFacility:CANCStart: 03-02-2021 End: 25-61-1356sclhwyjyqiRwvwoay Maye DavisnelaleahFacility:[facility] On[facility] AssociatesStart: 02-02-2021 End: 35-84-7004bfooapstllSxhgrw Alondra WarmbrodFacility:CANCStart: 01-05-2021 End: 44-43-9870wcjwivnzcrZcbutk Alondra WarmbrodFacility:CANCStart: 74-86-0246oimwsnkkwuJqtfgb Alondra WarmbrodFacility:CANCStart: 12-10-2020 ambulatoryAudrey Alondra WarmbrodFacility:[facility] Start: 12-10-2020 End: 83-44-8106qffktrgcvxHltmosy Maye DavisnelaleahFacility:[facility] Procedures DateProcedureProcedure DetailPerforming ClinicianStart: 59-93-9017BLCJTKKFBRG SKIN LESIONNatalie A Felter YOUTH MINISTER-METER/[employer]LAY [employer]RAFTSM[employer] Work Phone: Start: 75-31-1776QGR CBC W AUTO DIFF BLDGeneric External Data ProviderStart: 23-72-5430TPZW / NAIL BIOPSYNatalie A Felter YOUTH MINISTER-METER/[employer]LAY CRAFTSMAN Work Phone: Start: 75-69-4820FVVHGNJNBFM SKIN LESIONNatalie A Felter YOUTH MINISTER-METER/[employer]LAY CRAFTSMAN Work Phone: Start: 80-65-4644FAS CBC W AUTO DIFF BLDGeneric External Data ProviderStart: 62-99-1695Ezkzj 1996 panel - Serum or PlasmaCatrachita Mariee MD Work Phone: start: 16-39-3067QQH CBC W AUTO DIFF BLDGeneric External Data ProviderStart: 26-52-3901BWHFOWHNSSJ OF LESIONEmily Irasema Wang MD Work Phone: Start: 75-21-6254NVN CBC W AUTO DIFF BLDGeneric External Data ProviderStart: 82-45-4628Cgybwmswrf trichiasis epilation forceps onlyCatherine Marie COURTNEY Work Phone: Start: 41-13-5792[facility]- DERMATOPATHOLOGYGeneric External Data ProviderStart: 78-60-2900DKFY / NAIL BIOPSYNatalie A Felter YOUTH MINISTER-METER/RELAY CRAFTSMAN Work Phone: Start: 16-83-2319AUJWBEZGRLI SKIN LESIONNatalie A Felter YOUTH MINISTER-METER/RELAY CRAFTSMAN Work Phone: Start: 82-93-9667RWDHF OXIMETRY, CONTINUOUSThomas Deepthi iWnter MD Work Phone: Start: 24-45-4085OA ABO/RH GROUP TESTGeneric External Data ProviderStart: 48-41-8591SEAFS/VERIFY ABORHThomas Deepthi Winter MD Work Phone: Start: 25-97-9767Arperkovwd & lymph nodes imaging Mariluz Rubin MD Work Phone: Start: 95-34-6050YR Lymphatic vessels Views W radionuclide intra lymphaticGeneric External Data ProviderStart: 06-84-4741VJS CBC W AUTO DIFF BLDGeneric External Data ProviderStart: 13-62-2937ZQH CBC WITH AUTO DIFFGeneric External Data ProviderStart: 45-26-6941EHEH PATH BX REPORT Generic External Data ProviderStart: 72-61-6925OISFRTILUDZ OF LESIONEmily Irasema Wang MD Work Phone: Start: 01-86-3349BWBNBQHLNXW SKIN LESIONEmily Irasema Wang MD Work Phone: Start: 92-73-8318HYJ BACTERIA EYE AEROBE CULTGeneric External Data ProviderStart: 75-05-7544Tyovgy scraping diagnostic smear &/cultureJeffrey M Goshe MD Work Phone: Start: 13-79-8492Qsk lac appl tissue glue wound cornea&/scleraGabo Fuchs MD Work Phone: Start: 49-02-0580DX of head without contrastMatthew Petznick DO Work Phone: Start: 60-82-9440Uszfb chest X-rayMatthew Petznick DO Work Phone: Start: 41-90-8093IQHC SURGERYSerg Foster MD PhD Work Phone: Start: 62-98-0899Ycosctzojg ultrasound dx b-scan w/wo a-scanGabo Fuchs MD Work Phone: Start: 05-20-2024 End: 91-74-7432IOSW / NAIL BIOPSYNatalie A Alma YOUTH MINISTER-METER/RELAY CRAFTSMAN Work Phone: Start: 99-33-9170Fotlmjwnzl trichiasis epilation forceps onlyMarta Salazar MD Work Phone: Start: 10-97-7030QXL CBC W AUTO DIFF BLDGeneric External Data ProviderStart: 55-57-7598ONI CBC W AUTO DIFF BLDGeneric External Data ProviderStart: 48-55-7719WVL CBC W AUTO DIFF BLDGeneric External Data ProviderStart: 17-66-0693Ljwjvuzcqw trichiasis epilation forceps Elvis Fuchs MD Work Phone: Start: 45-16-0726COA CBC W AUTO DIFF BLDGeneric External Data ProviderStart: 66-79-5072Qvrua 1996 panel - Serum or PlasmaEvelyn Brush RN Work Phone: Start: 97-28-6908Affshbxsvb trichiasis epilation forceps onlyGabo Fuchs MD Work Phone: Start: 55-40-0439Vtdwkd scraping diagnostic smear &/cultureGabo Fuchs MD Work Phone: Start: 71-34-2189Clviawwcgp trichiasis epilation forceps onlyGabo Fuchs MD Work Phone: Start: 09-90-9981Ohbnngwync trichiasis epilation forceps onlyGabo Fuchs MD Work Phone: Start: 93-15-5059Iaturjypsf trichiasis epilation forceps onlyGabo Fuchs MD Work Phone: Start: 13-17-1607Oopugrs fngi mold/yeast prsmptv oth xcpt bloodGabo Fuchs MD Work Phone: Start: 01-88-6336Sblzsvukqh trichiasis epilation forceps onlyGabo Fuchs MD Work Phone: Start: 35-32-5828Sbgpehrjomrks metabolic panelHolly Zion YOUTH MINISTER.METER/RELAY CRAFTSMAN Work Phone: Start: 13-88-0011Dlhkmmhbws trichiasis epilation forceps onlyGabo Fuchs MD Work Phone: Start: 60-13-1446Knrkngstdo trichiasis epilation forceps onlyGabo Fuchs MD Work Phone: Start: 76-60-4961Qzkpwqsnuy ultrasound dx b-scan w/wo Lida Price MD Work Phone: [phone]: 77-97-2576Oeocxkacct trichiasis epilation forceps onlyGabo Fuchs MD Work Phone: Start: 76-07-1036Ggrtc ophthalmic dx img ant segmt w/i&r uni/biGabo Fuchs MD Work Phone: [phone]: 80-16-6373Uetkdxaujv trichiasis epilation forceps onlyGabo Fuchs MD Work Phone: Start: 75-95-8922Fpt lac appl tissue glue wound cornea&/scleraGabo Fuchs MD Work Phone: [phone]: 62-05-8118Bgrfghglnx trichiasis epilation forceps onlyGabo Fuchs MD Work Phone: Start: 97-99-7341Rgwojnhhjw trichiasis epilation forceps onlyGabo Fuchs MD Work Phone: Start: 81-15-8478QJJ screeningDR MARIO SIDDIQUIComment on above:Performed By: #### PSAD #### [facility] [address] [place] [address] Dr. John ParraStart: 34-56-9415Auxojvzcgb trichiasis epilation forceps only Gabo Fuchs MD Work Phone: Start: 27-55-9348Eifzjalngr trichiasis epilation forceps onlyGabo Fuchs MD Work Phone: Start: 26-60-2006Hhoxv depression screening assessment Mario Siddiqui MD Work Phone: Start: 14-77-9210Ndimhr scraping diagnostic smear &/cultureGabo Fuchs MD Work Phone: Start: 75-43-8899Lumtrrb fngi mold/yeast prsmptv oth xcpt bloodGabo Fuchs MD Work Phone: Start: 90-34-7044Ddmfpruhrs trichiasis epilation forceps onlyGabo Fuchs MD Work Phone: Start: 17-78-9405Jslef depression screening assessment Mario Siddiqui MD Work Phone: Start: 09-14-2017H/O: cornea recipientPKP 09/12/17 OD for perforated corneal ulcerMario Siddiqui MD Work Phone: Start: 43-38-8801VrcwvahkkepFpyzx [place] Work Phone: H/O: cornea recipientS/P PKP (penetrating keratoplasty)Echo Lui MD Work Phone: H/O: cornea recipientS/P PKP (penetrating keratoplasty)Gabo Fuchs MD Work Phone: H/O: cornea recipientS/P PKP (penetrating keratoplasty)Gabo Fuchs MD Work Phone: H/O: cornea recipientS/P PKP (penetrating keratoplasty)Gabo Fuchs MD Work Phone: H/O: cornea recipientS/P PKP (penetrating keratoplasty)Gabo Fuchs MD Work Phone: H/O: cornea recipientS/P PKP (penetrating keratoplasty)Gabo Fuchs MD Work Phone: H/O: cornea recipientS/P PKP (penetrating keratoplasty)Echo Lui MD Work Phone: H/O: cornea recipientS/P PKP (penetrating keratoplasty)Gabo Fuchs MD Work Phone: H/O: cornea recipientS/P PKP (penetrating keratoplasty)Gabo Fuchs MD Work Phone: H/O: cornea recipientS/P PKP (penetrating keratoplasty)Gabo Fuchs MD Work Phone: H/O: cornea recipientS/P PKP (penetrating keratoplasty)Gabo Fuchs MD Work Phone: H/O: cornea recipientS/P PKP (penetrating keratoplasty)Gabo Fuchs MD Work Phone: H/O: surgeryHistory of nevus excisionNatalie A Felter YOUTH MINISTER-METER/RELAY CRAFTSMAN Work Phone: H/O: surgeryHistory of nevus excisionNatalie A Felter YOUTH MINISTER-METER/RELAY CRAFTSMAN Work Phone: Plan of Treatment DateCare ActivityDetailAuthorStart: 71-16-6695Mthlt panelLipid Screening [facility] Hospitaltart: 14-17-6647Oheurlfk specific antigen measurementProstate Cancer Screening DiscussionLima Memorial Hospitaltart: 28-25-1557Jaatg panelLipid ScreeningLima Memorial Hospitaltart: 16-81-7078Njviudba specific antigen measurement Prostate Cancer Screening DiscussionLima Memorial Hospitaltart: 40-66-9485Dfymowzb ScreeningDiabetes ScreeningCleveland Clinic Akron Generalrt: 66-36-6425Tfcuxcrq Screening Diabetes ScreeningLima Memorial Hospitaltart: 27-22-9253Kxgtzgft ScreeningDiabetes ScreeningLima Memorial Hospitaltart: 58-76-8537Iggdleuv mellitus screeningDiabetes ScreeningTriHealth Bethesda North HospitalStart: 99-94-0559Xvzfizbg Screening Diabetes ScreeningLima Memorial Hospitaltart: 66-23-4666Lkwdmhbw ScreeningDiabetes ScreeningLima Memorial Hospitaltart: 74-19-0138CUMOAHBM CANCER SCREENING DISCUSSION PROSTATE CANCER SCREENING DISCUSSIONLima Memorial Hospitaltart: 16-60-5699Msurpohn specific antigen measurementProstate Cancer Screening DiscussionSelect Medical [facility] Start: 02-50-5582Altpxkuz ScreeningDiabetes ScreeningLima Memorial Hospitaltart: 57-97-9095Oeuhvjsn ScreeningDiabetes ScreeningLima Memorial Hospitaltart: 11-27-2026 Diabetes ScreeningDiabetes ScreeningLima Memorial Hospitaltart: 95-13-4065Vemauztv ScreeningDiabetes ScreeningLima Memorial Hospitaltart: 91-95-0327Nupsjhts Screening Diabetes ScreeningLima Memorial Hospitaltart: 61-41-1817Xnudkfdt ScreeningDiabetes ScreeningLima Memorial Hospitaltart: 67-42-4413Bmrntzvrb for malignant neoplasm of colonColorectal Cancer ScreeningNOMS HealthcareComment on above:Postponed from 1956 (Patient Refused)Start: 81-63-9094EYRKGSUQ SCREENDIABETES SCREEN [facility] Hospitaltart: 51-91-4947Qcxgyayq ScreeningDiabetes ScreeningLima Memorial Hospitaltart: 68-75-4576YEPVQPPK SCREENDIABETES SCREENLima Memorial Hospitaltart: 60-28-7269HOQDHQNQ SCREENDIABETES SCREENLima Memorial Hospitaltart: 09-05-2025 Medicare Annual Wellness (AWV)Medicare Annual Wellness (AWV)[facility] Start: 08-24-2025 End: 80-09-2031Siclfow encounter procedureOphthalmologyComment on above:Return in about 1 year (around 08/11/2025).Start: 05-19-2025 End: 91-84-4723Apsqhbr encounter jyzsegrgt88/20/2026 9:20 AM EST Office Visit [facility] [address] [place] [address] Uri Marquezie Irasema, YOUTH MINISTER-METER/RELAY CRAFTSMAN [address] [facility] [address] [place] [address] [facility] DermatologyStart: 93-74-4377UQRTUBAB SCREENDIABETES SCREENCleveland ClinicStart: 02-16-2025 End: 28-32-9113Sjmmrcy encounter procedureNOMS SWS DERMComment on above:Arrived Start: 02-04-2025 End: 50-56-9945ZQE W Auto Differential panel - BloodCOMPLETE BLOOD COUNT AND DIFFERENTIAL Lab Routine Polycythemia vera (HCC) Expected: 02/04/2025 (Appr oximate), Expires: 05/06/2025[facility] Work Phone: comment on above:Expected: 02/04/2025 (Approximate), Expires: 05/06/2025Start: 02-04-2025 End: 94-09-7594Fdxnbnpiqbeeq metabolic 2000 panel - Serum or PlasmaCOMPREHENSIVE METABOLIC PANEL Lab Routine Polycythemia vera (HCC) Expected: 02/04/2025 (Approximate), Expires: 05/06/2025leveland ClinicComment on above:Expected: 02/04/2025 (Approximate), Expires: 05/06/2025Start: 02-04-2025 End: 51-07-3205Qsplxod dehydrogenase [Enzymatic activity/volume] in Serum or PlasmaLACTATE DEHYDROGENASE Lab Routine Polycythemia vera (HCC) Expected: 02/04/2025 (Approximate), Expires: 05/06/2025leveland ClinicComment on above: Expected: 02/04/2025 (Approximate), Expires: 05/06/2025Start: 01-26-2025 End: 80-85-2143fsitsfghjsMvtuuuhdtj/OncologyComment on above:12 week lab, RV and possible phlebotomyStart: 01-26-2025 End: 49-98-2148Usejbuu encounter xttnhymvk53/29/2025 8:00 AM EDT Office Visit [facility] [address] [place] [address] [place] [address] 12 week lab, RV and possible phlebotomyNortUniversity of Michigan Health LaboratoryComment on above:12 week lab, RV and possible phlebotomy Start: 05-61-2765Datnubemh vaccinationNOIN HealthcareStart: 12-12-2024 End: 83-52-6388Fskrggd encounter yndjtsxyk77/15/2025 9:00 AM EDT Office Visit [facility] [address] [place] [phone] Romulo Clark, DO [address] [place] [address] [facility] 230Start: 08-12-2025Medicare Annual Wellness (AWV)Medicare Annual Wellness (AWV)NOM HealthcareStart: 88-33-9212Jdwcaxzizocn Vaccine: 65+ Years (1 of 2 - PCV)Pneumococcal Vaccine: 65+ Years (1 of 2 - PCV) [facility] HealthcareComment on above:Postponed from 1962 (Patient Refused) Postponed from 11/24/1975 (Patient Refused)Start: 11-17-2024 End: 67-03-1228Uyukhow encounter procedureNOSANGER GENERAL H[facility]ITAL DERMComment on above:Arrived Start: 11-73-2547FOWLBOJQ SCREENDIABETES SCREENPaonia ClinicStart: 11-04-2024 End: 71-26-8506OCZ W Auto Differential panel - BloodCOMPLETE BLOOD COUNT AND DIFFERENTIAL Lab Routine Polycythemia vera (HCC) Expected: 11/04/2024 (Appr oximate), Expires: 02/03/2025[facility] hospitaland [facility] Work Phone: comment on above:Expected: 11/04/2024 (Approximate), Expires: 02/03/2025Start: 11-04-2024 End: 38-21-9508Pofgewyloewxh metabolic 2000 panel - Serum or PlasmaCOMPREHENSIVE METABOLIC PANEL Lab Routine Polycythemia vera (HCC) Expected: 11/04/2024 (Approximate), Expires: 02/03/2025[facility] springfield ClinicComment on above:Expected: 11/04/2024 (Approximate), Expires: 02/03/2025Start: 11-04-2024 End: 30-69-3870ubnkofbzdsHpejoilrhy/OncologyComment on above:12 week lab, RV and possible phlebotomyStart: 11-04-2024 End: 34-21-2727Xtytxon encounter procedureNOMS SWS DERMComment on above:12 week lab, RV and possible phlebotomyStart: 10-20-2024 End: 76-22-8088Dwsaxwr encounter qzyvugbiq42/23/2025 9:00 AM EDT Office Visit [facility] [address] [place] [address] [place] [address] [place], [place] [phone] [facility]art: 09-23-2024 End: 83-69-5556dbrshoodwf62/27/2025 9:00 AM EDT [facility] Hematology/Oncology [address] [address] 6 week cbc and possible phlebotomyHematology/OncologyComment on above:6 week cbc and possible phlebotomyStart: 09-23-2024 End: 48-57-2660Lmfqngo encounter guxjovqxn76/27/2025 8:45 AM EDT Office Visit [facility] [address] [place] [address] 6 week cbc and possible phlebotomyNortUniversity of Michigan Health LaboratoryComment on above:6 week cbc and possible phlebotomy Start: 97-61-5091Tjozvjaji for malignant neoplasm of colonNOMS HealthcareStart: 09-05-2024 End: 91-84-2715Zqsemvc encounter eopwmdixu72/09/2025 10:15 AM EDT Office Visit [facility] [address] [place] [address] Romulo Clark, [address] [place] [address] ArrivedNOMS SWS FM 230Comment on above:ArrivedStart: 09-01-2024 End: 56-51-9317Wkalpwr encounter xsodqzuox88/05/2025 2:45 PM EDT Office Visit [facility] [address] [address] Marta Salazar MD [address] [place] [address] 6-8 Weeks Post OpOphthalmologyComment on above:6-8 Weeks Post OpStart: 08-26-2024 End: 79-30-6890Ayrnjhh encounter procedureOphthalmologyComment on above: Neurotrophic Keratoconjunctivitis/YearlyNeurotrophic Keratoconjunctivitis/Yearly Page Dr Mayrt: 08-25-2024 End: 60-84-2966Ujfkvicqipjt consultation with vdynmhe1008/25/2024 4:00 PM EDT Telemedicine [facility] [address] [place] [address] [place] [address] [place] [address] [facility] Cent[facility]art: 08-15-2024 End: 57-02-3856Xoygoik encounter wjkymouai02/18/2025 8:50 AM EDT Procedure Visit [facility] [address] [place] [address] Xavi Wang MD [address] [place] [address] [facility] DERMStart: 08-12-2024 End: 52-72-8095hvprsmphigFbyterddqa/OncologyComment on above:12 week lab, RV and possible phlebotomyStart: 08-12-2024 End: 47-64-2908Xwztheq encounter twqqkhdas23/15/2025 9:15 AM EDT Office Visit [facility] [address] [place] [phone] 12 week lab, RV and possible phlebotomyNortUniversity of Michigan Health LaboratoryComment on above:12 week lab, RV and possible phlebotomy Start: 08-11-2024 End: 85-68-1756Ncoqeya encounter procedureOphthalmologyComment on above:6-8 Weeks Post OpStart: 08-07-2024 End: 32-65-7289Slodjhzdd to same day surgery dqfdlv2708/07/2024 7:00 AM EDT - 08/07/2024 8:55 AM EDT Surgery [facility] [address] [place] [address] [place] [address] [place] [address] EXCISION, LESION, SKIN, HEAD AND NECK REGION [88979 (CPT )][facility] T[facility] ORComment on above: EXCISION, LESION, SKIN, HEAD AND NECK REGION [23047 (CPT )]Start: 08-07-2024 End: 65-13-0860Qxljpgxg malignant lesion f/e/e/n/l >4.0 cmEXCISION, LESION, SKIN, HEAD AND NECK REGION Malignant melanoma of neck (Multi) 08/07/2024 7:00 AM EDTVirtual [facility] [place] ORStart: 92-39-6594Wujnosfluk hospital visit by physician 08/07/2024 5:30 AM EDT Hospital Encounter [facility] [address] [place] [address] [place] [address] [place] [address] [facility] ORStart: 08-04-2024 End: 71-35-6965Ugiavrc encounter procedureNOMS SWS DERMComment on above:Arrived Start: 74-26-2546EODRGLGE SCREENDIABETES SCREENPaonia ClinicStart: 07-24-2024 End: 03-86-4676Dmiasko encounter procedureOphthalmologyComment on above:return in 6 months7-8 Days Post OpStart: 07-14-2024 End: 78-17-3456Reuwnzasa to same day surgery centerOphthalmologyComment on above:EVISCERATION OF OCULAR CONTENTS W/ IMPLANTStart: 07-14-2024 End: 73-42-9977Ltsopp intermargin adhes/tarsorrh/canthorrhapyMER[facility]STITUTEStart: 07-14-2024 End: 35-70-4127Casgortnztfb ocular contents w/implantMER[facility]STITUTEStart: 81-55-0735Dvwyxobtuj hospital visit by physicianOphthalmologyComment on above: 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]Start: 07-07-2024 End: 34-60-3989Qvdiocb encounter fxrmupuqu71/10/2025 9:30 AM EDT Office Visit [facility] [address] [address] Paula Sarmiento APRN.METER/RELAY CRAFTSMAN [address] [place] [address] 7-8 Days Post OpOphthalmologyComment on above:7-8 Days Post OpStart: 07-03-2024 End: 45-54-2967Zdhxgfsx malignant lesion f/e/e/n/l >4.0 cmEXCISION, LESION, SKIN, HEAD AND NECK REGION Malignant melanoma of neck (Multi) 07/03/2024 7:00 AM ESTVirtual [facility] [place] ORStart: 07-01-2024 End: 21-99-2442Pzzboxu encounter vrdwwysug45/04/2025 1:15 PM EST Office Visit [facility] [address] [address] Nohelia Shook MD [address] [place] [address] ArrivedOphthalmologyComment on above:ArrivedStart: 07-01-2024 End: 05-27-1964cmkssakwom82/04/2025 9:00 AM EST Infusion Center Hematology/Oncology [address] [place] [address] [place] [address] 6 wk f/u with labs and poss phlebHematology/OncologyComment on above:6 wk f/u with labs and poss phlebStart: 07-01-2024 End: 17-50-9075Lqaqbjd encounter procedureVa [facility] Center Of [facility] LaboratoryComment on above:6 week labs with possible phlebotomy7-8 Days Post Op page Dr. Salazar's nurse Paula Sarmiento [id number]: 06-26-2024 End: 26-26-3531Bglcycztk to same day surgery gmubez6606/26/2024 7:30 AM EST - 06/26/2024 8:45 AM EST Surgery Admitting [address] [place] [address] Marta Salazar MD [address] [place] [address] EVISCERATION OF OCULAR CONTENTS W/ IMPLANTAdmittingComment on above:EVISCERATION OF OCULAR CONTENTS W/ IMPLANTStart: 06-26-2024 End: 01-31-6611Qtycav intermargin adhes/tarsorrh/canthorrhapyREVISION OF EYELID (TARSORRHAPHY) Neurotrophic keratoconjunctivitis of right eye 06/26/2024 7:30 AM [facility]Start: 06-26-2024 End: 20-64-8926Ekgzxmkkelmx ocular contents w/implantEVISCERATION OF OCULAR CONTENTS W/ IMPLANT Neurotrophic keratoconjunctivitis of right eye 06/26/2024 7:30 AM [facility]IONStart: 38-38-7289Wcfvqjawam hospital visit by riqvstlkf71/27/2025 7:30 AM [facility] Hospital Encounter Admitting [address] [place] [address] Marta Salazar MD [address] [place] [address] 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]AdmittingComment on above: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]Start: 06-23-2024 End: 29-42-0209Zvamkz intermargin adhes/tarsorrh/canthorrhapyREVISION OF EYELID (TARSORRHAPHY) Neurotrophic keratoconjunctivitis of right eye 06/23/2024 1:54 PM [facility]IONStart: 06-23-2024 End: 33-77-9599Czrjzpyslhgt ocular contents w/implantEVISCERATION OF OCULAR CONTENTS W/ IMPLANT Neurotrophic keratoconjunctivitis of right eye 06/23/2024 1:54 PM [facility]IONStart: 02-02-9443Zyjioiczoy hospital visit by kxvoabjra96/22/2025 Hospital Encounter Admitting [address] [place] [address] Nohelia Shook MD [address] [place] [address] 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], 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], 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, 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]AdmittingComment on above: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], 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], Blind painful right eye [H54.40, H57.11]Start: 06-20-2024 End: 84-66-7373Lsdqgfnvgl btahbpwmlakl73/21/2025 11:59 PM EST Anesthesia Event Admitting [address] [place] [address] Ruiz Hurley DO [address] [place] [address] AdmittingStart: 06-18-2024 End: 71-67-6579XF Heart Perfusion W single state of exerciseStress test with myocardial perfusion Cardiac Nuclear Medicine Routine Primary hypertension (CMS/HCC) Syncope, unspecified syncope type Chest pain, unspecified type Expected: 06/18/2024 (Approximate), Expires: 06/18/2026[facility] Work Phone: Comment on above:Expected: 06/18/2024 (Approximate), Expires: 06/18/2026Start: 06-17-2024 End: 34-48-0573Cezaquj encounter procedureInternal MedicineComment on above:Pre OpDr. Goshe - 06/17/24 @ 10:00 - Follow-up eye pain - Thank you! PER TINAStart: 77-32-0540EkwozznrhKettering Health Prebletart: 06-09-2024 End: 22-07-6875Iufnyod encounter fpibvperk48/10/2025 9:00 AM EST Office Visit [facility] [address] [place] [address] [place] [address] [place] [address] [facility]: 06-05-2024 End: 88-48-7873Ihywbtf encounter vyngojyte10/06/2025 11:00 AM EST Office Visit [facility] [address] [address] Gabo Fuchs MD [address] [facility] [place] [address] Add [facility] June 05, office use slot okay OphthalmologyComment on above:Add [facility] June 05, office use slot okay Start: 05-23-2024 End: 10-39-7081Ejwlcfyxy to same day surgery bplivl6205/23/2024 2:22 PM EST - 05/23/2024 4:16 PM EST Surgery Ophthalmology [address] [address] Gabo Fuchs MD [address] [place] [address] KERATOPLASTY PENETRATING IN PSEUDOPHAKIAOphthalmology Comment on above:KERATOPLASTY PENETRATING IN PSEUDOPHAKIAStart: 05-23-2024 End: 62-17-2279Ecatrh intermargin adhes/tarsorrh/canthorrhapyREVISION OF EYELID (TARSORRHAPHY) Perforated corneal ulcer of right eye 05/23/2024 2:22 PM [facility]: 05-23-2024 End: 01-58-2356Vzfpqdzteqth penetrating pseudophakiaKERATOPLASTY PENETRATING IN PSEUDOPHAKIA Perforated corneal ulcer of right eye 05/23/2024 2:22 PM [facility] INSTITUTEStart: 63-58-5277Zzizvjmize hospital visit by motqkoysy65/24/2025 2:22 PM EST Hospital Encounter Ophthalmology [address] [address] Gabo Fuchs MD [address] [place] [address] 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] OphthalmologyComment on above: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] Start: 05-22-2024 End: 33-30-6853Yajyoso encounter anllmztbg06/23/2025 11:30 AM EST Office Visit Internal Medicine [address] [address] Tracy Duggan APRN.METER/RELAY CRAFTSMAN [address] [place] [address] PRE OPInternal MedicineComment on above:PRE OPStart: 05-22-2024 End: 75-98-4687Mjnuoqa encounter eeagnusid81/23/2025 9:15 AM EST Office Visit [facility] [address] [place] [address] Gabo Fuchs MD [address] [place] [address] Perforated corneaOphthalmologyComment on above:Perforated corneaStart: 05-20-2024 End: 41-85-2170Hfxkmdn encounter /21/2025 2:05 PM EST Office Visit [facility] [address] [place] [address] Taylor Marquez YOUTH MINISTER-METER/RELAY CRAFTSMAN [address] [place] [address] [facility] DERMStart: 05-20-2024 End: 43-63-9877Pgggedz encounter idotnknsq53/21/2025 10:15 AM EST Office Visit [facility] [address] [place] [address] [address] [place] [address] Marta Salazar MD [address] [place] [address] Follow up / poss eviscerationOphthalmologyComment on above: Follow up / poss eviscerationStart: 05-20-2024 End: 35-73-5469zbmpqwqudqGphdtglrsq/OncologyComment on above:12wk f/u with labs and poss phlebStart: 05-20-2024 End: 22-09-3975Keorkmu encounter xiwfurmvx67/21/2025 8:45 AM EST Office Visit [facility] [address] [place] [address] 12wk f/u with labs and poss phlebNorth Ascension Borgess Hospital LaboratoryComment on above:12wk f/u with labs and poss phlebStart: 73-47-4235Sivudqg Directive DiscussionAdvance Directive DiscussionLima Memorial Hospitaltart: 04-08-2024 End: 09-14-4306Anhdzbw encounter ixddcygkr77/10/2024 9:30 AM EST Office Visit [facility] [address] [place] [address] 6 week labNortUniversity of Michigan Health Laboratory Comment on above:6 week labStart: 02-26-2024 End: 77-97-0550hmrtbmcgwhLnawaztsdv/OncologyComment on above:12wk f/u with labs and poss phlebStart: 02-26-2024 End: 20-40-1655Bejouco encounter alhwqpgsw75/29/2024 8:00 AM EDT Office Visit [facility] [address] [place] [address] 12wk f/u with labs and poss phlebNortUniversity of Michigan Health LaboratoryComment on above:12wk f/u with labs and poss phlebStart: 02-19-2024 End: 39-96-9678ozaoaqvfdzTqsnxbnqkc/OncologyComment on above:12wk f/u with labs and poss phlebStart: 02-19-2024 End: 00-43-9773Vbwbdfs encounter xrztonxpi62/22/2024 8:00 AM EDT Office Visit [facility] [address] [place] [address] 12wk f/u with labs and poss phlebNorth Ascension Borgess Hospital LaboratoryComment on above:12wk f/u with labs and poss phlebStart: 01-15-2024 End: 13-83-3570Cbvfubb encounter phexfripw88/17/2024 9:30 AM EDT Office Visit [facility] [address] [address] Gabo Fuchs MD [address] [place] [address] follow-up goshe approx 3-5 months, office use slot okay OphthalmologyComment on above:follow-up goshe approx 3-5 months, office use slot okayStart: 01-09-2024 End: 15-18-1596Qkiziyg encounter woudmxkhw44/11/2024 11:30 AM EDT Office Visit [facility] [address] [place] [address] Outside lab orders by Dr. LanceHighland Hospital LaboratoryComment on above:Outside lab orders by Dr. Clark Start: 87-97-0742Tutjsfpzb vaccinationPaonia ClinicStart: 49-43-1655RT CONTROLLED (<130/80)BP CONTROLLED (<130/80)[facility] Hospitaltart: 11-28-2023 End: 89-01-0102Stjemz-up encounterHematology/OncologyComment on above:12 week follow up with lab and possible phlebotomyStart: 11-28-2023 End: 22-43-2049Nxsmuei encounter rdofqukwf86/31/2024 9:30 AM EDT Office Visit [facility] [address] [place] [address] 12 week follow up with lab and possible phlebotomyNoHighland Hospital LaboratoryComment on above:12 week follow up with lab and possible phlebotomyStart: 2023 End: 59-02-5178BHV W Auto Differential panel - BloodCOMPLETE BLOOD COUNT AND DIFFERENTIAL Lab Routine Polycythemia vera (HCC) Expected: 2023, Expires: 02/22/2024leveland ClinicComment on above:Expected: 2023, Expires: 02/22/2024Start: 2023 End: [id number] metabolic 2000 panel - Serum or PlasmaCOMPREHENSIVE METABOLIC PANEL Lab Routine Polycythemia vera (HCC) Expected: 2023, Expires: 02/22/2024[facility] Work Phone: Comment on above:Expected: 2023, Expires: 02/22/2024Start: 11-20-2023 End: 65-33-3065Bryzqd-up encounterHematology/OncologyComment on above:12 week follow up with lab and possible phlebotomyStart: 11-20-2023 End: 04-04-7174Wubvngl encounter vrazrcnhq94/23/2024 8:45 AM EDT Office Visit [facility] [place] [address] 12 week follow up with lab and possible phlebotomyNortUniversity of Michigan Health LaboratoryComment on above:12 week follow up with lab and possible phlebotomyStart: 10-09-2023 End: 74-58-1706tzbcqmrlbh68/11/2024 8:30 AM EDT [facility] Hematology/Oncology [address] [place] [address] 6 week lab Phleb if HCT > 45%Hematology/OncologyComment on above:6 week lab Phleb if HCT > 45%Start: 10-09-2023 End: 98-87-9221Akxdppi encounter gfylyosvp33/11/2024 8:15 AM EDT Office Visit [facility] [address] [place] [address] 6 week lab Phleb if HCT > 45%[facility] LaboratoryComment on above:6 week lab Phleb if HCT > 45%Start: 10-02-2023 End: 52-80-0842Hdkuvnn encounter /04/2024 10:45 AM EDT Office Visit [facility] Ophthalmology [address] [place] [address] Gabo Fuchs MD [address] [place] [address] Return in about 4 weeks (around 09/13/2023).Ophthalmology Comment on above:Return in about 4 weeks (around 09/13/2023).Start: 06-05-2023 End: 35-65-8411PHJ W Auto Differential panel - BloodCBC + DIFF Lab Routine Polycythemia vera (HCC) Lymphoma of ocular adnexa (HCC) Acquired hypothyroidism Expected: 06/05/2023, Expires: 09/04/2023[facility] Work Phone: Comment on above:Expected: 06/05/2023, Expires: 09/04/2023Start: 06-05-2023 End: 31-23-1798Lwpsrbkhbbnui metabolic 2000 panel - Serum or PlasmaCOMP METABOLIC PANEL Lab Routine Polycythemia vera (HCC) Lymphoma of ocular adnexa (HCC) Acquired hypothyroidism Expected: 06/05/2023, Expires: 09/04/2023[facility] Work Phone: Comment on above:Expected: 06/05/2023, Expires: 09/04/2023Start: 70-08-8356Bervajd Directive DiscussionAdvance Directive DiscussionCleHolmes County Joel Pomerene Memorial Hospitaltart: 50-21-3600Fhpjrselsl Health ScreeningBehavioral Health ScreeningLima Memorial Hospitaltart: 44-53-5554Ykfquilwue Assessment Depression AssessmentLima Memorial Hospitaltart: 04-24-2023 End: 43-13-0340OGK W Auto Differential panel - BloodCBC + DIFF Lab Routine Polycythemia vera (HCC) Lymphoma of ocular adnexa (HCC) Acquired hypothyroidism Expected: 04/24/2023, Expires: 07/24/2023[facility] Work Phone: Comment on above:Expected: 04/24/2023, Expires: 07/24/2023Start: 13-98-8441Clpzzevls vaccinationLima Memorial Hospitaltart: 61-05-4975Ebevv depression screening assessmentDEPRESSION SCREENINGLima Memorial Hospitaltart: 06-01-2023Medicare Annual Wellness VisitMedicare Annual Wellness VisitLima Memorial Hospitaltart: 05-01-2022 End: 90-95-6761UGY W Auto Differential panel - BloodCBC + DIFF Lab Routine Polycythemia vera (HCC) Lymphoma of ocular adnexa (HCC) Expected: 05/01/2022, Expires: 07/01/2022[facility] Work Phone: Comment on above:Expected: 05/01/2022, Expires: 07/01/2022Start: 05-01-2022 End: 46-89-8664Iyuufbupvextt metabolic 2000 panel - Serum or PlasmaCOMP METABOLIC PANEL Lab Routine Polycythemia vera (HCC) Lymphoma of ocular adnexa (HCC) Expected: 05/01/2022, Expires: 07/01/2022[facility] Work Phone: Comment on above:Expected: 05/01/2022, Expires: 07/01/2022Start: 34-18-2242HLBIKZR DIRECTIVE DISCUSSIONADVANCE DIRECTIVE DISCUSSIONLima Memorial Hospitaltart: 89-99-6660UNMNPBYBKD ASSESSMENTDEPRESSION ASSESSMENTLima Memorial Hospitaltart: 02-06-2022 End: 97-70-6942GPE W Auto Differential panel - BloodCBC + DIFF Lab Routine Polycythemia vera (HCC) Lymphoma of ocular adnexa (HCC) Expected: 02/06/2022, Expires: 04/08/2022[facility] Work Phone: Comment on above:Expected: 02/06/2022, Expires: 04/08/2022tart: 73-25-8199Dsxfaxgyu vaccinationLima Memorial Hospitaltart: 83-43-9847OQRVBJA DIRECTIVE DISCUSSIONADVANCE DIRECTIVE DISCUSSIONLima Memorial Hospitaltart: 11-14-2021 End: 74-43-2998EIB W Auto Differential panel - BloodCBC + DIFF Lab Routine Polycythemia vera (HCC) Lymphoma of ocular adnexa (HCC) Acquired hypothyroidism Expected: 11/14/2021, Expires: 01/14/2022[facility] Work Phone: Comment on above:Expected: 11/14/2021, Expires: 01/14/2022tart: 11-14-2021 End: 42-36-4801Pqogsrbkuarjr metabolic 2000 panel - Serum or PlasmaCOMP METABOLIC PANEL Lab Routine Polycythemia vera (HCC) Lymphoma of ocular adnexa (HCC) Acquired hypothyroidism Expected: 11/14/2021, Expires: 01/14/2022[facility] Work Phone: Comment on above:Expected: 11/14/2021, Expires: 01/14/2022tart: 10-26-2021 End: 77-40-6793QXJT NEUTRO CYTO ABCDoctors Hospital Work Phone: Comment on above:Expected: 10/26/2021, Expires: 12/26/2021tart: 10-17-2021 End: 88-23-1190ERJ W Auto Differential panel - BloodCBC + DIFF Lab Routine Polycythemia vera (HCC) Lymphoma of ocular adnexa (HCC) Acquired hypothyroidism Expected: 10/17/2021, Expires: 12/17/2021[facility] Work Phone: Comment on above:Expected: 10/17/2021, Expires: 12/17/2021tart: 08-03-2021 End: 08-93-2504HDV 1,2 ANTIBODIES [facility]MOhio [facility] Work Phone: comment on above:Expected: 08/03/2021, Expires: 10/03/2021tart: 32-27-8577GIYXEMRXIK ASSESSMENTDEPRESSION ASSESSMENTLima Memorial Hospitaltart: 48-99-2945Fijfdrkfm vaccinationINFLUENZA (#1)[facility] Hospitaltart: 43-34-0230Wudix depression screening assessmentDEPRESSION SCREENINGLima Memorial Hospitaltart: 91-09-9177WPE High Risk: (Elderly (60+) or Population) (1 - Risk 60-74 years 1-dose series)RSV High Risk: (Elderly (60+) or Population) (1 - Risk 60-74 years 1-dose series)[facility]: 34-78-4617UYV Vaccine (1 - 1-dose 60+ series)RSV Vaccine (1 - 1- dose 60+ series)[facility]: 91-66-5301KCA Vaccine (1 - Risk 60-74 years 1-dose series)RSV Vaccine (1 - Risk 60-74 years 1-dose series)[facility]: 55-20-3543Oyczatthz for malignant neoplasm of colonSelect Medical [facility] Start: 93-14-1354HRAVIGJF CANCER SCREENING DISCUSSIONPROSTATE CANCER SCREENING DISCUSSIONLima Memorial Hospitaltart: 97-56-2524AYhD/Tdap/Td Vaccines (1 - Tdap) DTaP/Tdap/Td Vaccines (1 - Tdap)[facility]: 79-12-8232Jecsl microalbumin profileLima Memorial Hospitaltart: 2006 Pneumococcal Vaccine: 50+ (1 of 1 - PCV)Pneumococcal Vaccine: 50+ (1 of 1 - PCV) [facility]: 61-69-7843VMLQBRQB VACCINE (1 of 2)SHINGRIX VACCINE (1 of 2)[facility]: 82-65-7915VNRAIEXPL (FIT-DNA)COLOGUARD (FIT-DNA) [facility]: 81-24-1136AjwfgmorvajOMRYDXYCKMWGlgieioxr ClinicStart: 57-08-5465YNTHFIWPYZ CANCER SCREENINGCOLORECTAL CANCER SCREENINGSelect Medical [facility] Start: 56-90-7302PI COLONOGRAPHYCT COLONOGRAPHYLima Memorial Hospitaltart: 2001 FECAL OCCULT BLOODFECAL OCCULT BLOODLima Memorial Hospitaltart: 47-02-4773Yirmnkfur for malignant neoplasm of colonLima Memorial Hospitaltart: 65-35-7026OIHGMQVSZUTST SIGMOIDOSCOPYLima Memorial Hospitaltart: 57-25-8476Bglex 1996 panel - Serum or Plasma Lipid ScreeningLima Memorial Hospitaltart: 56-45-1674Jjmcb panelLipid Screening [facility]tart: 15-69-4730ZSNHT SCREENLIPID SCREENLima Memorial Hospitaltart: 54-62-5048Fquyrknegamq vaccinationPneumococcal Vaccine (1 of 2 - PCV)[facility]: 94-61-6803Jrpfjyqptmfa Vaccine: 50+ (1 of 2 - PCV) Pneumococcal Vaccine: 50+ (1 of 2 - PCV)[facility]: 11-24-1975 Pneumococcal Vaccine: 65+ Years (1 of 2 - PCV)Pneumococcal Vaccine: 65+ Years (1 of 2 - PCV)[facility]: 62-39-2611WGQVILEI VACCINE (1 of 2)SHINGRIX VACCINE (1 of 2)[facility]: 17-43-0199Lhhxn microalbumin profile DTAP,TDAP,TD (1 - Tdap)[facility]: 64-35-3391Hnucou Vaccines (1 of 2) Zoster Vaccines (1 of 2)[facility]: 38-29-3053EMBNFK PCP TEAM CHRONIC DISEASE VISITANNUAL PCP TEAM CHRONIC DISEASE VISITLima Memorial Hospitaltart: 46-98-0976Xsjaswh ScreeningAnxiety ScreeningLima Memorial Hospitaltart: 18-22-2319ZC CONTROLLED (<130/80)BP CONTROLLED (<130/80)[facility]: 25-27-4281Wmckmevajb ScreeningDepression ScreeningCleveland Clinic Akron Generalrt: 45-24-5902Jinpwkje mellitus screeningDiabetes ScreeningSt. [facility]'s Hospital: 78-89-6316SADBZISFA C SCREENINGHEPATITIS C SCREENINGLima Memorial Hospitaltart: 78-64-7672Elqfhtqms C screeningHepatitis C ScreeningLima Memorial Hospitaltart: 14-49-8984IGT SCREENINGHIV SCREENINGCleveland Clinic [facility] Generalrt: 38-42-9067VEXAE-19 VACCINE (1)COVID-19 VACCINE (1)[facility]: 25-77-7900AFWRHTKZPPWD (1 - PCV)PNEUMOCOCCAL (1 - PCV)[facility]: 63-90-2449Qpfbnvbjevka Vaccine: 65+ (1 - PCV)Pneumococcal Vaccine: 65+ (1 - PCV) [facility]: 40-41-6897Pcdazlfzswan Vaccine: 65+ (1 of 2 - PCV) Pneumococcal Vaccine: 65+ (1 of 2 - PCV)[facility]rt: 1962 PNEUMOCOCCAL: 65+ (1 - PCV)PNEUMOCOCCAL: 65+ (1 - PCV)[facility]: 47-37-2137GRMHN-19 VACCINE (#1)COVID-19 VACCINE (#1)[facility]: 34-87-3600Iius Cancer ScreeningSkin Cancer ScreeningHEBER [facility]LEY [facility] HealthcareStart: 01-07-5575XRJXJ-19 VACCINE (#1)COVID-19 VACCINE (#1)[facility]tart: 95-62-6799Yyoetxoxosd of skinDerm Melanoma Skin CheckTriHealth Bethesda North HospitalStmathews: 56-30-2527Uboki panelLipid PanelTriHealth Bethesda North HospitalStmathews: 07-27-1957Medicare Annual Wellness VisitMedicare Annual Wellness Visit (AWV)[facility]: 75-73-4280Pfoptoota for malignant neoplasm of colonHEBER VALLEY MED[facility]ENTER HealthcareStart: 84-39-1743Xgvibfs stimulating hormone measurementBone and Joint Hospital – Oklahoma CityBacteria identified in Eye by Aerobe cultureEYE CULTURE Microbiology Routine Central corneal ulcer of right eye 08/24/2021 2:30 PM [facility] Work Phone: Bacteria identified in Eye by Aerobe cultureEYE CULTURE Microbiology Routine Central corneal ulcer of right eye [facility]: Comment on above:Ordered: 09/05/2021acteria identified in Eye by Aerobe cultureEYE CULTURE Microbiology Routine Central corneal ulcer of right eye 03/13/2023 1:44 PM [facility] Work Phone: Bacteria identified in Eye by Aerobe cultureEYE CULTURE Microbiology Routine Central corneal ulcer of right eye 07/20/2023 9:44 AM [facility] Work Phone: Bacteria identified in Eye by Aerobe cultureBACTERIAL CULTURE, EYE Microbiology Routine Central corneal ulcer of right eye 06/17/2024 4:14 PM [facility] Work Phone: End: 10-02-4714HSV W Auto Differential panel - BloodCBC + DIFF Lab Routine Polycythemia vera (HCC) Once per month for 12 Occurrences starting 07/25/2021 [facility] Work Phone: Comment on above:Once per month for 12 Occurrences starting 07/25/2021 until 07/25/2022 End: 88-40-2652GRQ W Auto Differential panel - BloodCOMPLETE BLOOD COUNT AND DIFFERENTIAL Lab Routine Polycythemia vera (HCC) Every 6 weeks for 2 Occurrences starting 11/28/2023 until 11/27/2024[facility] hospitaland ClinicComment on above:Every 6 weeks for 2 Occurrences starting 11/28/2023 until 11/27/2024 End: 24-70-4876ZOS W Auto Differential panel - BloodCOMPLETE BLOOD COUNT AND DIFFERENTIAL Lab Routine Polycythemia vera (HCC) Lymphoma of ocular adnexa(HCC) Every 6 weeks for 2 Occurrences starting 02/26/2024 until 02/25/2025[facility] hospitaland ClinicComment on above:Every 6 weeks for 2 Occurrences starting 02/26/2024 until 02/25/2025 End: 74-91-2636YAY W Auto Differential panel - BloodCOMPLETE BLOOD COUNT AND DIFFERENTIAL Lab Routine Polycythemia vera (HCC) Lymphoma of ocular adnexa(HCC) Every 6 weeks for 2 Occurrences starting 05/20/2024 until 05/20/2025[facility] hospitaland ClinicComment on above:Every 6 weeks for 2 Occurrences starting 05/20/2024 until 05/20/2025 End: 14-89-1610Xgpaasbtixzpc metabolic 2000 panel - Serum or PlasmaCOMPREHENSIVE METABOLIC PANEL Lab Routine Polycythemia vera (HCC) Every 6 weeks for 2 Occurrences starting 11/28/2023 until 11/27/2024[facility] Work Phone: Comment on above:Every 6 weeks for 2 Occurrences starting 11/28/2023 until 11/27/2024 End: 59-27-9568Yuvcipvjapqky metabolic 2000 panel - Serum or PlasmaCOMPREHENSIVE METABOLIC PANEL Lab Routine Polycythemia vera (HCC) Lymphoma of ocular adnexa (HCC) Every 6 weeks for 2 Occurrences starting 02/26/2024 until 02/25/2025 [facility] Work Phone: Cominqd on above:Every 6 weeks for 2 Occurrences starting 02/26/2024 until 02/25/2025 End: 97-52-8784Ndnvvnjevvujc metabolic 2000 panel - Serum or PlasmaCOMPREHENSIVE METABOLIC PANEL Lab Routine Polycythemia vera (HCC) Lymphoma of ocular adnexa (HCC) Every 6 weeks for 2 Occurrences starting 05/20/2024 until 05/20/2025 [facility] Work Phone: Comment on above:Every 6 weeks for 2 Occurrences starting 05/20/2024 until 05/20/2025Dermatopathology examDermatopathology exam Pathology and Cytology Timed Neoplasm of unspecified behavior of bone, soft ti ssue, and skin Release Upon Ordering for 1 Occurrences starting 05/20/2024[facility] Healthcare Work Phone: comuzmm on above:Release Upon Ordering for 1 Occurrences starting 05/20/2024Dermatopathology examDermatopathology exam Pathology and Cytology Timed Neoplasm of unspecified behavior of bone, soft ti ssue, and skin Release Upon Ordering for 1 Occurrences starting 08/04/2024[facility] Healthcare Work Phone: comment on above:Release Upon Ordering for 1 Occurrences starting 08/04/2024Dermatopathology examDermatopathology exam Pathology and Cytology Timed Neoplasm of unspecified behavior of bone, soft ti ssue, and skin Release Upon Ordering for 1 Occurrences starting 11/17/2024[facility] Healthcare Work Phone: comznfh on above:Release Upon Ordering for 1 Occurrences starting 11/17/2024Dermatopathology- DERM LABDermatopathology- DERM LAB Pathology and Cytology Routine Malignant melanoma of neck (Multi) Release Upon Ordering for 1 Occurrences starting 07/03/2024[facility] Service Area Work Phone: Comment on above:Release Upon Ordering for 1 Occurrences starting 07/03/2024Dermatopathology- DERM LABDermatopathology- DERM LAB Pathology and Cytology Routine Malignant melanoma of neck (Multi) Release Upon Ordering for 1 Occurrences starting 08/07/2024[facility] Service Area Work Phone: Comment on above:Release Upon Ordering for 1 Occurrences starting 08/07/2024Evisceration ocular contents w/implant EVISCERATION OF OCULAR CONTENTS W/ IMPLANT 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 Blind painful right eyeMC MAIN PAVILIONFungus identified in Unspecified specimen by CultureFUNGAL CULTURE Microbiology Routine Central corneal ulcer of right eye 08/24/2021 2:30 PM EDT [facility] Work Phone: Fungus identified in Unspecified specimen by Culture FUNGAL CULTURE Microbiology Routine Central corneal ulcer of right eye Ordered: 09/05/2021[facility] Work Phone: Comment on above:Ordered: 09/05/2021Fungus identified in Unspecified specimen by CultureFUNGAL CULTURE Microbiology Routine Central corneal ulcer of right eye 03/13/2023 1:44 PM [facility] Work Phone: Fungus identified in Unspecified specimen by Culture FUNGAL CULTURE Microbiology Routine Central corneal ulcer of right eye 07/20/2023 9:44 AM [facility] Work Phone: Fungus identified in Unspecified specimen by Culture FUNGAL CULTURE (NON DERMAL) Microbiology Routine Central corneal ulcer of right eye 06/17/2024 4:14PM [facility] EducationDizziness in adults - ED discharge instructionsMemorial [facility] Work Phone: Patient referralMemorial Health System [facility] Work Phone: Surgical pathology studySurgical Pathology Exam Pathology and Cytology Routine Malignant melanoma of neck (Multi) Release Upon Ordering for 1 Occurrences starting 07/03/2024[facility] Work Phone: Comment on above:Release Upon Ordering for 1 Occurrences starting 07/03/2024TARSORRHAPHY, TEMPORARY (SCHWAB SUTURE) TARSORRHAPHY, TEMPORARY (SCHWAB SUTURE) Ophthalmology Routine Exposure keratoconjunctivitis of righteye 08/26/2021 2:36 PM [facility] Work Phone: [facility] ClinicC[facility] ClinicC[facility] ClinicC[facility] ClinicC[facility] ClinicCleveland ClinicCleveland ClinicCle[facility] Immunizations Immunization DateImmunizationNotesCare VmktmyazUkhkgziv21-63-0364yjrylhc and diphtheria toxoids, adsorbed, preservative free, for adult use (2 Lf of tetanus toxoid and 2 Lf of diphtheria toxoid)Nicolasa Donovan YOUTH MINISTER.METER/RELAY CRAFTSMAN Work Phone: [facility] ShawHlqnim06-44-3583iyiloca and diphtheria toxoids, adsorbed, preservative free, for adult use (5 Lf of tetanus toxoid and 2 Lf of diphtheria toxoid)Nicolasa Donovan YOUTH MINISTER.METER/RELAY CRAFTSMAN Work Phone: [facility] Payers DatePayer CategoryPayerPolicy [id number] or OtherMUT[place] [address] [id number] [id number] Health Insurance [id number] [id number] 2022Medicare [id number] [facility] PPO [place] [employer] [id number] 2018-Present [phone] [address] [place] [address] [id number] 1.2.840.253792.1.13.159.2.7.3.669088.315 [id number]bxmip0[id number] 2.16840.1.139867.3.57[id number] 2.16.840.1.109492.3.57[id number] 2.16.840.1.038286.3.579.2.2[id number] 2.16.840.1.269540.3.579.2.3[id number] 2.16840.1.971484.3.579.[id number] 2.16.840.1.511708.3.579.[id number] 2.16.840.1.227287.3.579.2.64107-43-4118Mhyukpg029940415 2.16.840.1.393334.3.579.2.[id number] 2.16840.1.629498.3.579.2.130[id number] 2.16840.1.048011.3.579.2.33557-39-0995Kclyevp731249343 2.16.840.1.194298.3.579.2.2[id number] 2.16840.1.490276.3.579.2.63092-78-3593Xeuiuki9577268 2.16840.1.350544.3.579.2.11806-12-0607Rnbamlw9681805 2.0.1.716450.3.579.2.01831-26-9141Fqqeigr4558196 2.840.1.655456.3.579.2.06504-68-4171Zsdxrna772373202 2.0.1.503238.3.579.2.928392-76-7444Dooueta25819053 2.0.1.342454.3.579.2.281762-04-6352Yqznsyg32001496 2.840.1.382802.3.579.2.496034-80-3941Fjywlsn625656542 2.840.1.219083.3.579.2.933752-99-0623Pxojalg477192482 2.840.1.991843.3.579.2.676665-65-3807Vgijgqr869754940 2.840.1.410160.3.579.2.700774-00-8854Zzamgku747075668 2.16840.1.800474.3.579.2.246094-28-5471Hdnkjxh736563786 2.16840.1.769410.3.579.2.169551-45-8394Rczjsqq176908145 2.16.840.1.508091.3.579.2.948694-30-2043Fhzbogp597071682 2.16.840.1.218180.3.579.2.465624-08-4318Jqryjpa949838158 2.16.840.1.077840.3.579.2.585910-41-3621Aupesqj69173778 2.16.840.1.410901.3.579.2.835150-17-9523Gvkicxc95611646 2.16.840.1.270352.3.579.2.119423-03-6807Bpsxedp3458132 2.16.840.1.610845.3.579.2.335424-80-6830Atibexy3093983 2.16.840.1.558012.3.579.2.713410-84-7805Doecayg8747105 2.16.840.1.807976.3.579.2.768531-37-7023Lusmony2010926 2..0.1.289858.3.579.2.201949-63-0817Uwzwmon5837256 2.840.1.282604.3.579.2.613084-40-0838Jpdzoxy1080610 2.16840.1.292519.3.579.2.1259Private Health [id number] 1cc8207i-8f31-1ftb-aw10-1ld8822207wqVptsgpgRfml [id number] f9i1hsw9-9bsa-4800-3a2t-[id number] 36007is4-20wr-0985-s452-510586867931KenaxehYVM897417594001 r56ci545-y8r9-8uo9-zy2j-8122z81110vpKpeetyp74426093 2.16.840.1.841465.3.579.2.659Tiemeft42293400 2.16.840.1.254338.3.579.2.531 Social History DateTypeDetailFacilityStart: 10-27-2014 End: 76-30-4242Nfeqhym smoking status NHISNever smoked tobaccoSelect Medical [facility] Clinic [facility] Start: 07-25-2021 End: 00-47-5327Dfsltqb intakeCurrent non-drinker of alcohol (finding)[facility]: 46-64-4933Tpp Assigned At BirthNot on fileLima Memorial Hospitaltart: 07-15-2021 End: 01-40-4667Vqmupotg to SARS-CoV-2 (event)Not sureLima Memorial Hospitaltart: 36-97-1416Kmh Assigned At BirthC[facility] Clinic Mercy Hospitaltart: 10-27-2014 End: 53-70-4084Emadjaj use and exposureSmokeless tobacco non-userLima Memorial Hospitaltart: 09-27-2022 End: 87-42-7137Zya Assigned At BirthLima Memorial Hospitaltart: 09-27-2022 End: 84-80-4753Whljrzr of Social functionLima Memorial Hospitaltart: 10-02-2014 End: 30-47-6364Yzlgy Depression Screening Poztoghrxx1Nvzvplzwi ClinicStart: 12-11-2023 End: 68-02-1402Fktefezap beverage intakeLifetime non-drinker (finding)[facility] HealthcareStart: 52-42-5138Ohhmrcg Commentcaffeine 2-3 cups per day, sodaNOMS HealthcareTobacco smoking status NHISTobacco smoking consumption unknown [facility] Work Phone: Start: 06-17-2024 End: 00-10-4322DjhLzny (finding)[facility] CenterNEGATED: Highlighted rowStart: NINFHistory of tobacco usePassive smokerUnSelect Medical [facility] Work Phone: Medical Equipment Procedure CodeEquipment CodeEquipment Original TextEquipment IdentifierDates Cornea Tissue - [id number]: 27-63-7898Peqtbv Tissue - [id number]: 90-11-9235Cep-Of-A-Kind Implant - [id number]: 97-93-5194Rybslrf on above:Description: Avance Nerve GraftGraft Amniograft Ypy39-563fa C Amniotic Membrane 3.5x3.5cm Soft Tissue - [id number] Start: 24-87-5072Cyvnq Amniograft Pvl28-754zo C Amniotic Membrane 3.5x3.5cm Soft Tissue - [id number]: 05-93-0408Iksvki Tissue - [id number]_impStart: 80-60-2542Hrrxl Amniograft Fsd82-623vd C Amniotic Membrane 3.5x3.5cm Soft Tissue - [id number]: 73-95-5672Lkllrj [place] 20mm Clear Pmma 20mm Eye Hard Lightweight Inert Virtually - [id number] Start: 47-23-2825Xbdazitxc [place] Small Clear Pmma Ophthalmic Hole Hard Lightweight Inert - [id number]: 06-23-2024 Functional Status SmesTahicpdojlSycttsXjegtzlp42-36-9835Zdjxmtv Health Questionnaire 2 item (PHQ- 2) [Reported][facility] MedicineZmgofhpxzl14-60-3506Wlf you deaf, or do you have serious difficulty hearingNo 12/01/2014 11:02 AM Carina Phillips [facility] 55-77-6545Ibm you blind, or do you have serious difficulty seeing, even when wearing glassesNo 12/01/2014 11:02 AM Carina Phillips [facility] 28-64-0484Tf you have serious difficulty walking or climbing stairsNo 12/01/2014 11:02 AM Carina Phillips [facility]08-04-2015Do you have difficulty dressing or bathingNo 12/01/2014 11:02 AM Carina Phillips [facility] [id number] of a physical, mental, or emotional condition, do you have difficulty doing errands alone such as visiting a physician's office or shopping No 12/01/2014 11:02 AM EDT [facility] Mental Status V[id number] of a physical, mental, or emotional condition, do you have serious difficulty concentrating, remembering, or making decisionsNo 12/01/2014 11:02 AM EDT [facility] 09-11-2017 to 02-16-2025 Note Date & [id number] Telephone encounter Note* Telephone Encounter - Lauren Rowell - 02/16/2025 2:09 PM EDT Pt called stating he is getting up 3 to 5 times a night to use the bathroom, The Pt wanted to know if Dr. Chaudhry wants to see him or just increase his medication or refer him to a Urologist. Pt would like a call back at [phone] to discuss this. [facility] [id number] Miscellaneous Notes* Telephone Encounter - Lauren Rowell - 02/16/2025 2:09 PM EDT Pt called stating he is getting up 3 to 5 times a night to use the bathroom, The Pt wanted to know if Dr. Chauhdry wants to see him or just increase his medication or refer him to a Urologist. Pt would like a call back at [phone] to discuss this. documented in this encounterFreeman Orthopaedics & Sports [id number] History of Present illness Narrative* MICHELLE Montes - 02/16/2025 9:20 AM EDT Skin Check Location: Patient requests a full body skin examination Dermatologic history: history of Actinic Keratosis, history of Basal Cell Carcinoma, history of Squamous Cell Carcinoma, history of Melanoma, history of atypical mole(s) Last visit: 3 months ago Established patient Melanoma History Location: Left Posterior Neck Date of Melanoma dx: 05/20/2024 Melanoma details: Malignant Melanoma Breslow's depth: 0.3 mm Mitotic rate: 0 Ulceration: present Melanoma treatment: Referred for wide excision & SLNB with Serg Foster MD. SLNB negatie Additional testing: NM Lymphoscintigram. Patient denies fatigue, shortness of breath, enlarged lymph nodes, unintentional weight loss, or abdominal pain today. Lesions: Location: face, scalp, and hands Duration: months Quality: denies pain, denies itch, denies bleeding Modifying factors: none Associated symptoms: rough Treatments: lotion Lesions: Location: scrotum Duration: years Quality: denies pain, denies itch, denies bleeding Modifying factors: none - feels it when he washes himself Associated symptoms: rough and raised off the skin Treatments: none All pertinent medical history, medications, and allergies were reviewed. General Exam: alert, oriented to person, place, and time, normal affect, well appearing Unaccompanied Scalp, Examined , exam limited by hair Right leg Examined Head, Face Examined , Exam limited by rapp and mustache Left leg Examined Neck Examined Right foot Examined Chest Examined Left foot Examined Back Examined Buttocks Examined Patient kept underwear on Abdomen Examined Digits,nails: Examined Right arm Examined Left arm Examined Lymphatics: Examined Hands Examined no cervical lymphadenopathy, no supraclavicular lymphadenopathy, no axillary lymphadenopathy Skin Exam 1. MELANOCYTIC NEVUS OF TRUNK Generalized Scattered benign appearing, regular brown to light brown melanocytic papules and macules with similar morphology Counseled regarding these benign growths. Rarely, a nevus can develop into malignant melanoma, so any changing nevi should be promptly re-evaluated. 2. SEBORRHEIC KERATOSIS Generalized Stuck on verrucous, variably pigmented papules and plaques. Patient was counseled regarding these benign growths. Removal is normally not necessary, but they may be removed if they are symptomatic or for cosmetic reasons. 3. LENTIGINES Generalized Scattered au macules in sun-exposed areas. The patient was informed that lentigines are benign pigmented lesions that occur on sun-exposed andsun-damaged skin. No treatment is necessary. Recommended regular use of broad spectrum sunscreen SPF 30 or higher 4. CAPILLARY ANGIOMA Generalized Scattered michelle-red papule(s). The patient was informed that angiomas are benign growths on the the skin. No treatment is necessary. 5. HISTORY OF NEVUS EXCISION right mid back No evidence of recurrence in scar from atypical mole excision. Notify office for any recurrence at surgery site or for any new or changing lesions. 6. HISTORY OF BASAL CELL CARCINOMA left ala nasi No evidence of recurrence at BCC scar. The patient was counseled that scars from excisional sites of nonmelanoma skin cancers should be monitored closely for recurrence. The patient was instructed to contact the office for any new, changing, or symptomatic moles. The patient was also instructed to contact the office for any new lesions that develop within or around the previous surgery scar. 7. HISTORY OF MALIGNANT MELANOMA OF SKIN left posterior neck No evidence of recurrence at melanoma scar. The patient was counseled that scars from excisional sites of melanoma should be monitored closely for recurrence. The patient was instructed to contact the office for any new, changing, or symptomatic moles. The patient was also instructed to contact the office for any new lesions that develop within or around the previous melanoma scar. 8. MELANOCYTIC NEVUS OF LOWER EXTREMITY, UNSPECIFIED LATERALITY Generalized Scattered benign appearing, regular brown to light brown melanocytic papules and macules with similar morphology Counseled regarding these benign growths. Rarely, a nevus can develop into malignant melanoma, so any changing nevi should be promptly re-evaluated. 9. SKIN TAG (2) Left Axilla, Right Medial Thigh Fleshy, skin-colored sessile and pedunculated papules. The patient was informed that skin tags are benign growths usually found around the neck or in the axillae. No treatment is necessary, but at times they can get caught on jewelry or clothing or become inflamed. Skin tags can be removed with scissors or liquid nitrogen. 10. ACTINIC KERATOSIS (37) Dorsum of Nose, Left 2nd Finger Metacarpophalangeal Joint, Left Antihelix, Left Antitragus, Left Buccal Cheek, Left Distal Thumb, Left Dorsal Mid 2nd Finger, Left Forehead (2), Left Inferior Abril of Antihelix, Left Malar Cheek, Left Nasal Sidewall, Left Posterior Neck, Left Proximal 5th Finger, Left Superior Northridge, Mid Forehead (2), Mid Parietal Scalp (5), Mid Tip of Nose, Right 2nd Finger Metacarpophalangeal Joint, Right Dorsal Hand (2), Right Forehead (2), Right Inferior Northridge (2), Right Mid Northridge, Right Parotid Area, Right Preauricular Area, Right Proximal 2nd Finger, Right Superior Abril of Antihelix, Right Restorationist (2) Erythematous scaly papules Patient was counseled regarding these sun-induced growths that can develop into squamous cell carcinoma if left untreated. Discussed treatment with cryotherapy vs Efudex. Patient prefers the cryotherapy. It was emphasized that any treated lesions that fail to resolve should be re-evaluated. Cryotherapy performed today; see procedure note Diagnosis: Actinic keratosis Indication: Precancerous Location: see skin exam Consent: Verbal consent was obtained and risks were discussed, including, but not limited to risks of scarring, darker or rn house supervisor pigmentary changes, recurrence, incomplete removal and infection. Method: Liquid nitrogen was used to treat the lesion(s) with two 5-10 second freeze-thaw cycles. Number of lesions treated: 37 Post-procedure instructions: Instructions were given orally and in writing. The office will be contacted if the lesion fails to resolve despite treatment, or if a side effect develops such as abnormal crusting, scabbing, redness or tenderness - Cryotherapy, skin lesion - Dorsum of Nose, Left 2nd Finger Metacarpophalangeal Joint, Left Antihelix, Left Antitragus, Left Buccal Cheek, Left Distal Thumb, Left Dorsal Mid 2nd Finger, Left Forehead (2), Left Inferior Abril of Antihelix, Left Malar Cheek, Left Nasal Sidewall, Left Posterior Neck, Left Proximal 5th Finger, Left Superior Northridge, Mid Forehead (2), Mid Parietal Scalp (5), Mid Tip of Nose, Right 2nd Finger Metacarpophalangeal Joint, Right Dorsal Hand (2), Right Forehead (2), Right Inferior Northridge (2), Right Mid Northridge, Right Parotid Area, Right Preauricular Area, Right Proximal 2nd Finger, Right Superior Abril of Antihelix, Right Restorationist (2) 11. HISTORY OF SCC (SQUAMOUS CELL CARCINOMA) OF SKIN Left Proximal 3rd Finger No evidence of recurrence at SCC scar. The patient was counseled that scars from excisional sites of nonmelanoma skin cancers should be monitored closely for recurrence. The patient was instructed to contact the office for any new, changing, or symptomatic moles. The patient was also instructed to contact the office for any new lesions that develop within or around the previous surgery scar. Next Visit: 3 months documented in this encounterFreeman Orthopaedics & Sports [id number] NoteHNO ID: [id number] Author: ROXANA PACHECO APRN.VALERIANO Service: ? Author Type: Nurse Practitioner Type: Progress Notes Filed: 01/27/2025 10:42 Note Text: PATIENT NAME: Mak Garces DATE: 01/27/25 PRIMARY CARE PHYSICIAN: Dr. Romulo Clark OTHER PHYSICIANS: Dr. Gabo Fuchs ([facility] Ophthalmology) Some of the elements of this note have been copied from my previous progress note dated 11/04/24 . All the information has been reviewed carefully. 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 Surgery was 06/23/2024. Since that his pain, headaches, and associate symptoms have resolved. 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 Status post WLE and SLNBx at on 07/03/2024. Lymph nodes were negative. He underwent reexcision on 08/07/2024 for positive margins, and ultimate surgical margins were clear. The patient has recovered from surgery well. Per plastic surgery adjuvant therapy not indicated. The patient has had no other significant medical changes. He remains on Hydrea 500 mg twice daily and is tolerating it well. 11/04/24: - Doing well - Remains on Hydrea 2 tabs daily. - Last phlebotomy was 5-6 months ago. - Seeing veterans employment representative next week. 01/27/25: -Overall doing well -Continues Hydrea -Following with Dermatology Has not needed phlebotomy's for over 10 months MEDICATIONS: hydroxyurea (HYDREA) 500 mg capsule Take 1 capsule by mouth two times a day. erythromycin (ROMYCIN) 5 mg/gram (0.5 %) ophthalmic ointment Use 1 application in the right eye four times daily. Apply less than a pea-sized amount per application acetaminophen (TYLENOL) 325 mg tablet Take 2 tablets by mouth every 6 hours as needed (Mild Pain (1-3)). ondansetron (ZOFRAN) 8 mg tablet Take 1 tablet by mouth every 8 hours as needed for nausea/vomiting. levocetirizine 5 mg tablet Take 5 mg by mouth. cefTAZidime ophthlamic solution 5% (50 mg/mL) (IP-CPD) Use 1 Drop in the right eye two times a day. BABY ASPIRIN ORAL Take by mouth. erythromycin (ROMYCIN) 5 mg/gram (0.5 %) ophthalmic ointment apply into right eye at bedtime fluoride, sodium, (DENTA-GEL) 1.1 % gel use to BRUSH TEETH 3 to 5 MINUTES once daily polyvinyl alcohol-povidone (REFRESH) 1.4-0.6 % ophthalmic solution 1 drop into affected eye as needed ascorbic acid, vitamin C, (VITAMIN C) 500 mg tablet Take 1,000 mg by mouth once daily. levothyroxine (SYNTHROID) 150 mcg tablet Take 1 tablet by mouth once daily. fluticasone (FLONASE) 50 mcg/actuation nasal spray tamsulosin (FLOMAX) 0.4 mg Take 0.4 mg by mouth daily at bedtime. carboxymethylcellulose (REFRESH TEARS) 0.5 % drop Use 1 Drop in both eyes as needed. 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 PAST SURGICAL HISTORY: PAST SURGICAL HISTORY Procedure Laterality Date CHOLECYSTECTOMY 2011 EPILATION OF TRICHIASIS, FORCEPS Right 04/18/2023 EYE SURGERY HX Left 01/17/2018 CONJUNCTIVOPLASTY, RECONSTRUCTION CUL-DE-SAC W/ BUCCAL GRAFT (Left EYE SURGERY HX Right Eye removal EYE SURGERY PROCEDURE Right 10/10/2017 REVISION OR REPAIR OPERATIVE WOUND EYE ANTERIOR SEGMENT MAJOR OR MINOR KERATOPLASTY PENTRG EXCEPT APHAKIA/PSEUDOPHAKIA Right 09/12/2017 PK (Penetrating Keratoplasty) OCULAR SURFACE RECONSTRUCTION AMNIOTIC MEMBRANE PAST SURGICAL HISTORY OF Right EVISCERATION OF OCULAR CONTENTS W/ IMPLANT - Right with Marta Salazar MD on 06/23/2024 PAST SURGICAL HISTORY OF Melanoma removed from left side of neck PAST SURGICAL HISTORY OF Skin cancer removed REFRACTIVE SURGERY OD (RIGHT EYE) 08/01/2023 REVIEW OF SYSTEMS: General: No weight loss, malaise or fevers. HEENT: Negative for frequent or significant headaches. No changes in hearing, no nose bleeds or other nasal problems. Positive right eye issues. Respiratory: Negative for cough, wheezing or shortness of breath. Cardiovascular: Negative for chest pain, leg swelling or palpitations. GI: Negative for abdominal discomfort, b (more content not included)...[facility]07-21-2025 History of Present illness Narrative* Taylor Marquez, [employer] MINISTER[employer]LAY [employer]RAFTSMAN - 11/17/2024 9:25 AM EDT Images from the original note were not included. Skin Check Location: Patient requests a full body skin examination Dermatologic history: history of Actinic Keratosis, history of Basal Cell Carcinoma, history of Melanoma, history of atypical mole (mild & monitoring), History of Squamous cell carcinoma Last visit: 3 months ago Established patient Melanoma History Location: Left Posterior Neck Date of Melanoma dx: 05/20/2024 Melanoma details: Malignant Melanoma Breslow's depth: 0.3 mm Mitotic rate: 0 Ulceration: present Melanoma treatment: Referred for wide excision & SLNB with Serg Foster MD. SLNB negatie Additional testing: NM Lymphoscintigram. Patient denies fatigue, shortness of breath, enlarged lymph nodes, unintentional weight loss, or abdominal pain today. Lesions: Location: face, scalp, and hands Duration: months Quality: denies pain, denies itch, denies bleeding Modifying factors: none Associated symptoms: rough Treatments: lotion All pertinent medical history, medications, and allergies were reviewed. General Exam: alert, oriented to person, place, and time, normal affect, well appearing Unaccompanied Areas not examined despite medical recommendation: Scalp, Examined Right leg Examined Head, Face Examined Left leg Examined Neck Examined Right foot Examined Chest Examined Left foot Examined Back Examined Buttocks Examined Patient kept underwear on Abdomen Examined Digits,nails: Examined Right arm Examined Left arm Examined Lymphatics: Examined Hands Examined no cervical lymphadenopathy, no supraclavicular lymphadenopathy, no axillary lymphadenopathy Skin Exam 1. MELANOCYTIC NEVUS OF TRUNK Generalized Scattered benign appearing, regular brown to light brown melanocytic papules and macules with similar morphology Counseled regarding these benign growths. Rarely, a nevus can develop into malignant melanoma, so any changing nevi should be promptly re-evaluated. 2. MELANOCYTIC NEVUS OF LOWER EXTREMITY, UNSPECIFIED LATERALITY Generalized Scattered benign appearing, regular brown to light brown melanocytic papules and macules with similar morphology Counseled regarding these benign growths. Rarely, a nevus can develop into malignant melanoma, so any changing nevi should be promptly re-evaluated. 3. OTHER ATOPIC DERMATITIS Left Dorsal Hand, Right Dorsal Hand Scaly erythematous plaques +/- dyspigmentation, lichenification, excoriations. Flaring today Discussed that atopic dermatitis is a chronic condition that can be controlled but not cured. StartTAC bid prn when flared, hold if smooth/asymptomatic. Encouraged daily moisturizing and gentle cleansers to prevent flares. Notify office if flaring despite treatment. Related Medications triamcinolone (Kenalog) 0.1 % cream Apply topically to hand bid as needed when flaring, set aside when clear. Avoid using on face, axilla, and groin 4. SEBORRHEIC KERATOSIS Generalized Stuck on verrucous, variably pigmented papules and plaques. Patient was counseled regarding these benign growths. Removal is normally not necessary, but they may be removed if they are symptomatic or for cosmetic reasons. 5. LENTIGINES Generalized Scattered au macules in sun-exposed areas. The patient was informed that lentigines are benign pigmented lesions that occur on sun-exposed andsun-damaged skin. No treatment is necessary. Recommended regular use of broad spectrum sunscreen SPF 30 or higher 6. CAPILLARY ANGIOMA Generalized Scattered michelle-red papule(s). The patient was informed that angiomas are benign growths on the the skin. No treatment is necessary. 7. SKIN TAG Left Axilla Fleshy, skin-colored sessile and pedunculated papules. The patient was informed that skin tags are benign growths usually found around the neck or in the axillae. No treatment is necessary, but at times they can get caught on jewelry or clothing or become inflamed. Skin tags can be removed with scissors or liquid nitrogen. 8. HISTORY OF MALIGNANT MELANOMA OF SKIN left posterior neck No evidence of recurrence at melanoma scar. The patient was counseled that scars from excisional sites of melanoma should be monitored closely for recurrence. The patient was instructed to contact the office for any new, changing, or symptomatic moles. The patient was also instructed to contact the office for any new lesions that develop within or around the previous melanoma scar. 9. HISTORY OF BASAL CELL CARCINOMA left ala nasi No evidence of recurrence at BCC scar. The patient was counseled that scars from excisional sites of nonmelanoma skin cancers should be monitored closely for recurrence. The patient was instructed to contact the office for any new, changing, or symptomatic moles. The patient was also instructed to contact the office for any new lesions that develop within or around the previous surgery scar. 10. HISTORY OF NEVUS EXCISION right mid back No evidence of recurrence in scar from atypical mole excision. Notify office for any recurrence at surgery site or for any new or changing lesions. 11. ACTINIC KERATOSIS (19) Left Dorsal Mid 3rd Finger, Left Ear, Left Forehead, Mid Parietal Scalp (9), Right Dorsal Hand (2),Right Dorsal Mid 3rd Finger, Right Forehead, Right Parotid Area, Right Proximal Thumb, Right Superior Northridge Erythematous scaly papules Patient was counseled regarding these sun-induced growths that can develop into squamous cell carcinoma if left untreated. Discussed treatment with cryotherapy. It was emphasized that any treated lesions that fail to resolve should be re- evaluated. Cryotherapy performed today; see procedure note Diagnosis: Actinic keratosis Indication: Precancerous Location: see skin exam Consent: Verbal consent was obtained and risks were discussed, including, but not limited to risks of scarring, darker or rn house supervisor pigmentary changes, recurrence, incomplete removal and infection. Method: Liquid nitrogen was used to treat the lesion(s) with two 5-10 second freeze-thaw cycles. Number of lesions treated: 19 Post-procedure instructions: Instructions were given orally and in writing. The office will be contacted if the lesion fails to resolve despite treatment, or if a side effect develops such as abnormal crusting, scabbing, redness or tenderness. Recommended wear a hat and protective clothing when outdoors. Cryotherapy, skin lesion - Left Dorsal Mid 3rd Finger, Left Ear, Left Forehead, Mid Parietal Scalp (9), Right Dorsal Hand (2), Right Dorsal Mid 3rd Finger, Right Forehead, Right Parotid Area, Right Proximal Thumb, Right Superior Northridge 12. NEOPLASM OF UNSPECIFIED BEHAVIOR OF BONE, SOFT TISSUE, AND SKIN Left Proximal 3rd Finger Erythematous papule Lesion biopsy Type of biopsy: tangential Informed consent: discussed and consent obtained Informed consent comment: The risks and benefits of the biopsy were discussed. Risks include but are not limited to bleeding, infection, scarring, pain, and nerve damage. An opportunity to ask questions prior to the procedure was permitted and all questions were answered. Patient was prepped and draped in usual sterile fashion: area cleansed with alcohol. Anesthesia: the lesion was anesthetized in a standard fashion Anesthetic: 1% lidocaine w/ epinephrine 1-100,000 buffered w/ 8.4% NaHCO3 Instrument used: DermaBlade Hemostasis achieved with: suture and electrodesiccation Outcome: patient tolerated procedure well Outcome comment: The specimen was placed in a prelabeled formalin container to be sent for pathology Post-procedure details: sterile dressing applied and wound care instructions given Post-procedure details comment: Emphasized need to contact clinic for any signs of infection, uncontrollable bleeding, or complications. Dressing type: bandage Additional details: Photo taken Amount of lidocaine used: 1.0 cc Specimen A - Dermatopathology exam Differential Diagnosis: Recurrent SCC, see previous path vs scar Check Margins: No Size of lesion: 0.7 x 0.7 cm Previous accession number: [id number] Shave biopsy today, see procedure note. Patient will be notified of results. Follow up pending biopsy results. Next Visit: 3 months skin exam, pending bx results documented in this encounterFreeman Orthopaedics & Sports [id number] Instructions* Patient Instructions* Catrachita Mariee MD - 11/04/2024 8:55 AM EDT Continue Hydrea, baby aspirin F/u in 3 months documented in this encounterSelect Medical [facility] History of Present illness Narrative* Catrachita Mariee MD - 11/04/2024 8:20 AM EDT PATIENT NAME: Mak Garces DATE: 11/04/24 PRIMARY CARE PHYSICIAN: Dr. Romulo Clark OTHER PHYSICIANS: Dr. Gabo Fuchs ([facility] Ophthalmology) Some of the elements of this note have been copied from previous progress note dated 08/12/24. All the information has been reviewed carefully. 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 Surgery was 06/23/2024. Since that his pain, headaches, and associate symptoms have resolved. 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 Status post WLE and SLNBx at on 07/03/2024. Lymph nodes were negative. He underwent reexcision on 08/07/2024 for positive margins, and ultimate surgical margins were clear. The patient has recovered from surgery well. Per plastic surgery adjuvant therapy not indicated. The patient has had no other significant medical changes. He remains on Hydrea 500 mg twice daily and is tolerating it well. 11/04/24: - Doing well - Remains on Hydrea 2 tabs daily. - Last phlebotomy was 5-6 months ago. - Seeing veterans employment representative next week. MEDICATIONS: erythromycin (ROMYCIN) 5 mg/gram (0.5 %) ophthalmic ointment Use 1 application in the right eye four times daily. Apply less than a pea-sized amount per application acetaminophen (TYLENOL) 325 mg tablet Take 2 tablets by mouth every 6 hours as needed (Mild Pain (1-3)). ondansetron (ZOFRAN) 8 mg tablet Take 1 tablet by mouth every 8 hours as needed for nausea/vomiting. levocetirizine 5 mg tablet Take 5 mg by mouth. hydroxyurea (HYDREA) 500 mg capsule Take 1 capsule by mouth two times a day. cefTAZidime ophthlamic solution 5% (50 mg/mL) (IP-CPD) Use 1 Drop in the right eye two times a day. BABY ASPIRIN ORAL Take by mouth. erythromycin (ROMYCIN) 5 mg/gram (0.5 %) ophthalmic ointment apply into right eye at bedtime fluoride, sodium, (DENTA-GEL) 1.1 % gel use to BRUSH TEETH 3 to 5 MINUTES once daily polyvinyl alcohol-povidone (REFRESH) 1.4-0.6 % ophthalmic solution 1 drop into affected eye as needed ascorbic acid, vitamin C, (VITAMIN C) 500 mg tablet Take 1,000 mg by mouth once daily. levothyroxine (SYNTHROID) 150 mcg tablet Take 1 tablet by mouth once daily. fluticasone (FLONASE) 50 mcg/actuation nasal spray tamsulosin (FLOMAX) 0.4 mg Take 0.4 mg by mouth daily at bedtime. carboxymethylcellulose (REFRESH TEARS) 0.5 % drop Use 1 Drop in both eyes as needed. 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 PAST SURGICAL HISTORY: PAST SURGICAL HISTORY Procedure Laterality Date CHOLECYSTECTOMY 2011 EPILATION OF TRICHIASIS, FORCEPS Right 04/18/2023 EYE SURGERY HX Left 01/17/2018 CONJUNCTIVOPLASTY, RECONSTRUCTION CUL-DE-SAC W/ BUCCAL GRAFT (Left EYE SURGERY HX Right Eye removal EYE SURGERY PROCEDURE Right 10/10/2017 REVISION OR REPAIR OPERATIVE WOUND EYE ANTERIOR SEGMENT MAJOR OR MINOR KERATOPLASTY PENTRG EXCEPT APHAKIA/PSEUDOPHAKIA Right 09/12/2017 PK (Penetrating Keratoplasty) OCULAR SURFACE RECONSTRUCTION AMNIOTIC MEMBRANE PAST SURGICAL HISTORY OF Right EVISCERATION OF OCULAR CONTENTS W/ IMPLANT - Right with Marta Salazar MD on 06/23/2024 PAST SURGICAL HISTORY OF Melanoma removed from left side of neck PAST SURGICAL HISTORY OF Skin cancer removed REFRACTIVE SURGERY OD (RIGHT EYE) 08/01/2023 REVIEW OF SYSTEMS: General: No weight loss, malaise or fevers. HEENT: Negative for frequent or significant headaches. No changes in hearing, no nose bleeds or other nasal problems. Positive right eye issues. Respiratory: Negative for cough, wheezing or shortness of breath. Cardiovascular: Negative for chest pain, leg swelling or palpitations. GI: Negative for abdominal discomfort, blood in stools or black stools or change in bowel habits. : No history of dysuria, frequency or incontinence. Musculoskeletal: Negative for joint pain or swelling, back pain and muscle pain. Skin: +skin changes, spot on left neck Hematology/Lymphology: Negative for prolonged bleeding, bruising easily or swollen nodes. Neuro: No history of headaches, syncope, paralysis, seizures or tremors. PHYSICAL EXAM: Vitals: BP 163/104 Pulse 81 Temp 36.4 C (97.5 F) (Temporal) Resp 16 Ht 188 cm (6' 2.02 ) Wt 120.3 kg (265 lb 3.4 oz) SpO2 98% BMI 34.04 kg/m ECOG 0 General: Alert and oriented, no distress, pleasant and cooperative. Heart: Regular, normal S1 and S2, no murmurs, rubs, or gallops Lungs: Clear to auscultation bilaterally Abdomen: Benign Extremities: Feet/ankles without edema, posterior tibial pulses full and symmetrical Skin: normal PATHOLOGY: 04/16/2017 Biopsy right eye conjunctiva Small B cell neoplasm best classified as extranodal marginal zone lymphoma. LABORATORY DATA: Hemoglobin (g/dL) Date Value 11/04/2024 12.9 06/24/2021 12.1 Hematocrit (%) Date Value 11/04/2024 42.6 06/24/2021 40.2 WBC (k/uL) Date Value 11/04/2024 9.93 06/24/2021 15.87 Platelet Count (k/uL) Date Value 11/04/2024 370 06/24/2021 455 RADIOLOGY/OTHER STUDIES: 05/28/2017 MRI orbit IMPRESSION: Normal study. Known abnormality of orbital adnexa not appreciated on this examination. No intracranial masses. 05/11/2017 PET scan IMPRESSION: 1. HEAD/NECK: No FDG avid neoplastic process. No hypermetabolic mass, adenopathy, or fluid collection. 2. CHEST: No FDG avid neoplastic process. No hypermetabolic mass, adenopathy, or fluid collection. 3. ABDOMEN/PELVIS: No FDG avid neoplastic process. No hypermetabolic mass, adenopathy, or fluid collection. 4. EXTREMITIES/SKELETON: No FDG avid osseous process. PATHOLOGY: FINAL DIAGNOSIS A. SKIN WIDE EXCISION, LEFT NECK MELANOMA INCISION SHORT STITCH SUPERIOR LONG STITCH ANTERIOR, WIDEEXCISION: ATYPICAL MELANOCYTIC HYPERPLASIA AND CHANGES CONSISTENT WITH PREVIOUS PROCEDURE, SEE NOTE. Note: Microscopic examination reveals a specimen that extends into the subcutaneous fat. An area with horizontally oriented collagen and vertically oriented vessels is present. In slide A3 there is an area of basal layer vacuolization with occasional nests of melanocytes along the dermal-epidermal j unction. There is moderate to dense solar elastosis and there are superficial melanophages. A SOX-10 stain reveals an increase in single melanocytes that are non-continuous along the dermal-epidermaljunction in this area that are PRAME positive in approximately fifty percent. All control slides stain appropriately. The area of atypical melanocytic hyperplasia is from the area of dermal fibrosis by uninvolved epidermis and dermis. An area of melanoma in situ at a distance of approximately 1.6 mm from the long stitch anterior 9 o'clock margin cannot be excluded. B. NODE, SENTINEL LYMPH NODE #1 295, WIDE EXCISION: BENIGN LYMPH NODE. C. NODE, SENTINEL LYMPH NODE #2 COUNT 135, WIDE EXCISION: BENIGN LYMPH NODE. D. NODE, ADDITIONAL LYMPH NODE, WIDE EXCISION: BENIGN LYMPH NODE. E. SKIN, ADDITIONAL INFERIOR SKIN, WIDE EXCISION: ACTINIC DAMAGE WITH A POSSIBLE LYMPH NODE, SEE NOTE. Note: Microscopic examination reveals a specimen that extends into the subcutaneous fat. There is dense solar elastosis and there is basal layer melanin pigmentation in areas. There is a collection of lymphocytes in the subcutaneous fat that appears to be fairly well circumscribed. No melanoma is se en on a SOX-10, Melan-A or HMB45 stain amongst the inflammation. ASSESSMENT/PLAN: 1. Polycythemia vera (HCC) - ICD9: 238.4, ICD10: D45 (primary diagnosis) Polycythemia vera initially diagnosed September 2014 after presenting with chronic thrombocytosis and leukocytosis (and iron deficiency at the time). Initial evaluation revealed a positive JAK2 mutation. Primary treatment with Hydrea and aspirin started at the time of diagnosis. On Hydrea 500 mg twice daily since April 2022. He also undergoes phlebotomy for hematocrit greater than 45%. Current CBC stable. - At this time the patient will continue as is with Hydrea. - Last therapeutic phlebotomy was 5-6 months ago. No need of phlebotomy today. 2. 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 Status post primary treatment with bilateral conjunctival radiation therapy completed June 2017 (24 Galindo in 12 fractions). He has had no evidence of recurrent lymphoma sincecompleting treatment, but has had multiple complications involving his eyes requiring multiple ophthalmologic procedures. Status post right eye evisceration 06/23/2024. Currently SARAY. Follow-up with [facility] ophthalmology as scheduled. 3. Acquired hypothyroidism - ICD9: 244.9, ICD10: E03.9 Stable on current medications, continue per PCP. 4. 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 Status post WLE and SLNBx at on 07/03/2024. Lymph nodes were negative. He underwent reexcision on 08/07/2024 for positive margins, and ultimate surgical margins clear. Currently SARAY. Per plastic surgery adjuvant therapy not indicated. Stage: cIB ([id number]). - Scheduled to see dermatology next week. F/u in 3 months. Total time spent 20 min. Catrachita Mariee MD [facility] Hematology/Oncology. documented in this encounterSelect [facility] NoteHNO ID: [id number] Author: CATRACHITA MARIEE MD Service: ? Author Type: Physician Type: Progress Notes Filed: 11/04/2024 11:23 Note Text: PATIENT NAME: Mak Garces DATE: 11/04/24 PRIMARY CARE PHYSICIAN: Dr. Romulo Clark OTHER PHYSICIANS: Dr. Gabo Fuchs ([facility] Ophthalmology) Some of the elements of this note have been copied from previous progress note dated 08/12/24. All the information has been reviewed carefully. 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 Surgery was 06/23/2024. Since that his pain, headaches, and associate symptoms have resolved. 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 Status post WLE and SLNBx at on 07/03/2024. Lymph nodes were negative. He underwent reexcision on 08/07/2024 for positive margins, and ultimate surgical margins were clear. The patient has recovered from surgery well. Per plastic surgery adjuvant therapy not indicated. The patient has had no other significant medical changes. He remains on Hydrea 500 mg twice daily and is tolerating it well. 11/04/24: - Doing well - Remains on Hydrea 2 tabs daily. - Last phlebotomy was 5-6 months ago. - Seeing veterans employment representative next week. MEDICATIONS: erythromycin (ROMYCIN) 5 mg/gram (0.5 %) ophthalmic ointment Use 1 application in the right eye four times daily. Apply less than a pea-sized amount per application acetaminophen (TYLENOL) 325 mg tablet Take 2 tablets by mouth every 6 hours as needed (Mild Pain (1-3)). ondansetron (ZOFRAN) 8 mg tablet Take 1 tablet by mouth every 8 hours as needed for nausea/vomiting. levocetirizine 5 mg tablet Take 5 mg by mouth. hydroxyurea (HYDREA) 500 mg capsule Take 1 capsule by mouth two times a day. cefTAZidime ophthlamic solution 5% (50 mg/mL) (IP-CPD) Use 1 Drop in the right eye two times a day. BABY ASPIRIN ORAL Take by mouth. erythromycin (ROMYCIN) 5 mg/gram (0.5 %) ophthalmic ointment apply into right eye at bedtime fluoride, sodium, (DENTA-GEL) 1.1 % gel use to BRUSH TEETH 3 to 5 MINUTES once daily polyvinyl alcohol-povidone (REFRESH) 1.4-0.6 % ophthalmic solution 1 drop into affected eye as needed ascorbic acid, vitamin C, (VITAMIN C) 500 mg tablet Take 1,000 mg by mouth once daily. levothyroxine (SYNTHROID) 150 mcg tablet Take 1 tablet by mouth once daily. fluticasone (FLONASE) 50 mcg/actuation nasal spray tamsulosin (FLOMAX) 0.4 mg Take 0.4 mg by mouth daily at bedtime. carboxymethylcellulose (REFRESH TEARS) 0.5 % drop Use 1 Drop in both eyes as needed. 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 PAST SURGICAL HISTORY: PAST SURGICAL HISTORY Procedure Laterality Date CHOLECYSTECTOMY 2011 EPILATION OF TRICHIASIS, FORCEPS Right 04/18/2023 EYE SURGERY HX Left 01/17/2018 CONJUNCTIVOPLASTY, RECONSTRUCTION CUL-DE-SAC W/ BUCCAL GRAFT (Left EYE SURGERY HX Right Eye removal EYE SURGERY PROCEDURE Right 10/10/2017 REVISION OR REPAIR OPERATIVE WOUND EYE ANTERIOR SEGMENT MAJOR OR MINOR KERATOPLASTY PENTRG EXCEPT APHAKIA/PSEUDOPHAKIA Right 09/12/2017 PK (Penetrating Keratoplasty) OCULAR SURFACE RECONSTRUCTION AMNIOTIC MEMBRANE PAST SURGICAL HISTORY OF Right EVISCERATION OF OCULAR CONTENTS W/ IMPLANT - Right with Marta Salazar MD on 06/23/2024 PAST SURGICAL HISTORY OF Melanoma removed from left side of neck PAST SURGICAL HISTORY OF Skin cancer removed REFRACTIVE SURGERY OD (RIGHT EYE) 08/01/2023 REVIEW OF SYSTEMS: General: No weight loss, malaise or fevers. HEENT: Negative for frequent or significant headaches. No changes in hearing, no nose bleeds or other nasal problems. Positive right eye issues. Respiratory: Negative for cough, wheezing or shortness of breath. Cardiovascular: Negative for chest pain, leg swelling or palpitations. GI: Negative for abdominal discomfort, blood in stools or black stools or change in bowel habits. : No history of dysuria, frequency or incontinence. Musculoskeletal (more content not included)...[facility] 10-27-2024 Telephone encounter Note* Telephone Encounter - Vannesa Woodward MA - 10/27/2024 11:44 AM EDT Patient coming in Sunday11/04/24 for Transition of care. Do you want labs before being seen. If so,please add lab orders. Thanks. Vannesa Woodward MA [facility]06-23-[facility]25 History of Present illness Narrative* Mariluz Rubin MD - 10/20/2024 9:15 AM EDT HEAD AND NECK SURGERY FOLLOW UP [facility] HPI I had the pleasure of seeing Mak Garces for a follow up visit today. Patient is s/p WLE melanoma of the neck with SLNBx on 07/03/24. Now s/p re-resection for close margins and melanoma in situ on 08/07/24, no residual melanoma, incidental BCC Patient reports doing well. Has some swelling in the area. Wears sunscreen, hat and avoids sun. Follows with dermatology q3 months. Physical Examination General: Examination reveals a well-developed, well-nourished patient in no apparent distress. Voice: The patient has no audible dysphonia Respiratory: No stridor or airway distress. Neuro: The patient is oriented, alert and responsive. Oral Cavity: The patient is able to open the mouth widely without trismus. Neck: Incision healing well, no lesions in the scar, healed well. Mild fullness and contour deformity from surgery Pathology: no residual melanoma, incidental BCC ASSESSMENT and PLAN: Neck melanoma, s/p WLE with SLNBx, lymph nodes negative, concern for Mis at margin, re-excision negative for melanoma - Discussed wound care and expectations for healing. He is overall healed well. Discussed scar massaged - Discussed avoiding sun and using hat/sunscreen which he is doing well - Emphasized importance of dermatology checks, he has follow up with dermatology soon - Discussed he has been adequately surgically treated, can follow up with me as needed Mariluz N Rubin, MD documented in this encounterTri[facility] Work Phone: [phone] NoteHNO ID: [id number] Author: SHAHEEN FRIEND RN Service: ? Author Type: Registered Nurse Type: Progress Notes Filed: 09/23/2024 08:24 Note Text: Hct 41.4- no phlebotomy needed.[facility]05-27-2025 History of Present illness Narrative* Shaheen Friend RN - 09/23/2024 8:18 AM EDT Hct 41.4- no phlebotomy needed. documented in this encounterSelect [facility] History of Present illness Narrative* Romulo Clark DO - 09/05/2024 10:15 AM EDT Images from the original note were not included. Mak Garces is a 68 y.o. male presents with chief complaint of Chief Complaint Patient presents with Medicare Annual Wellness Visit Initial Mak was seen today for medicare annual wellness visit initial. Diagnoses and all orders for this visit: Routine general medical examination at a health care facility Obstructive sleep apnea Primary hypertension (CMS/HCC) Benign prostatic hyperplasia with urinary obstruction Acquired hypothyroidism (CMS/HCC) Obesity (BMI 30-39.9) Polycythemia vera Malignant melanoma of neck (CMS/HCC) Hyponatremia Assessment & Plan Preventive wellness exam. Advised to maintain adequate hydration throughout the day. Cologuard testwill be ordered for colon cancer screening. Blood work including PSA, cholesterol, and thyroid willbe checked in October. Colonoscopy last performed in 08/2014, next due in 08/2024. Hypertension. Blood pressure readings have shown a decrease, currently at 140/86 mmHg. Advised to monitor blood pressure regularly. Reintroduction of antihypertensive medication may be considered in the future if necessary. Advised to start aspirin therapy at night. Hypothyroidism. Advised to continue current thyroid medication regimen. Thyroid function will be monitored every 6 months. Blood work including thyroid function to be checked in October. Melanoma. Melanoma excised, pathology report confirmed no cancer in the lymph nodes. Follow-up withdermatologist scheduled for October. Reports partial numbness on the left side, expected to persist for another 2-3 months, potentially up to 18 months. Advised to consider magnesium supplements for nerve recovery. ROMULO CLARK D.O. This note was entered using [employer] copilot. Grammatical and dictation errors maybe present in translation *I have reviewed and reconciled the history and medication list with the patient today* History of Present Illness Here for medicare wellness. CBC, CMP completed 08/12/24. Colonoscopy 09/14/14 Questioning if he should restart 81mg ASA. Stopped d/t having multiple surgeries. List of current healthcare providers: Patient Care Team: Romulo Clark DO as PCP - General (Family Medicine) Romulo Clark, DO as PCP - ACO Reach Medicare Annual Visit Over the past 2 weeks, how often have you been bothered by any of the following problems? Little interest or pleasure in doing things: Not at all Feeling down, depressed, or hopeless: Not at all Patient Health Questionnaire-2 Score: 0 Croft Fall Risk History of Falling, Immediate or Within 3 Months: No Health Risk Assessment Form Do you need help eating, bathing, using the toilet, dressing, or getting around your home?: No Can you prepare your own meals?: Yes Can you do your own housework without help?: Yes Can you shop for groceries or clothes without help?: Yes Do you exercise for about 20 minutes 3 or more days a week?: No How confident are you that you can control and manage most of your health problems?: Very confident Can you mange your money, credit cards and accounts, pay bills and taxes?: Yes Vision Screening: Yes, no gross abnormalities Hearing Screening: Yes, no gross abnormalities Cognitive Screening Self Assessment: No overt cognitive deficiency is apparent by direct observation Pain Assessment Pain Score: 0 - No pain The following health maintenance schedule was reviewed with the patient and provided in printed form in the after visit summary: Health Maintenance Topic Date Due Colorectal Cancer Screening 09/14/2024 Pneumococcal Vaccine: 65+ Years (1 of 2 - PCV) 12/09/2024 (Originally 11/24/1974) Medicare Annual Wellness (AWV) 12/09/2024 Influenza Vaccine (Season Ended) 2024 No orders of the defined types were placed in this encounter. The patient is a 68-year-old female who presents for a Medicare wellness visit. She has a history of polycythemia vera on hydroxyurea, obstructive sleep apnea, and lymphoma. Recent Surgical Procedures - Several surgical procedures recently, with the most recent one being 3 weeks ago - Basal cell carcinoma excised approximately 4 to 5 weeks ago, initially suspected to be melanoma - Pathology report confirmed that 3 lymph nodes were free of cancer - Scheduled for a follow-up visit in 10/2024 - Continues to experience partial numbness on her left side, expected to persist for another 2 to 3months Elevated Blood Pressure - Elevated blood pressure readings at home, averaging around 140/90 - Acknowledges the need for weight loss and has made some progress over the past few years Low Iron and Sodium Levels - History of low iron and sodium levels, similar to her mother Diverticulitis and Bowel Movements - History of diverticulitis - Concerned about the potential for a positive Cologuard test result - Recalls an incident of ileus following a colonoscopy, which required hospitalization for 2 days - Advised against using Metamucil and prefers not to use other stool softeners - Typically has one bowel movement per day, occasionally two Lymphoma - History of lymphoma, diagnosed 9 years ago, no evidence of recurrence - Currently under the care of a new occupational psychologist, whom she sees every 6 weeks - Has not required a phlebotomy for the past 7 to 8 visits, the longest period without this procedure Eye Removal Procedure - Underwent an eye removal procedure 12 days prior to her neck surgery - Believes the procedure was the cause of her lightheadedness - Pain-free since the procedure and has not experienced further episodes of lightheadedness - Awaiting an appointment for a prosthetic eye in [place] - Removed eye tested and found to be free of cancer Polycythemia Vera - History of polycythemia vera, believes it is an autoimmune disorder - Under the care of an oncologist and occupational psychologist Obstructive Sleep Apnea - History of obstructive sleep apnea - Seen by her sleep specialist approximately 3 weeks ago Supplemental information: PAST SURGICAL HISTORY: - Eye removal procedure - Neck surgery - Basal cell carcinoma excision - Colonoscopy (08/2014) FAMILY HISTORY His mother had low iron and low sodium levels. His father of Tawanna's granulomatosis, which is an autoimmune disorder. SUBJECTIVE: Current Medications: Allergies/Social History: ROS Current Outpatient Medications on File Prior to Visit Medication Sig Dispense Refill acetaminophen (Tylenol) 325 MG tablet Take 650 mg by mouth every 6 (six) hours if needed ascorbic acid (Vitamin C) 500 MG tablet Take 500 mg by mouth in the morning. carboxymethylcellulose (Refresh Plus) 0.5 % ophthalmic solution 1 drop fluticasone (Flonase) 50 MCG/ACT nasal spray Administer 2 sprays into each nostril Daily 16 g 4 Hydrea 500 MG capsule 500 mg in the morning and 500 mg before bedtime. levocetirizine (Xyzal) 5 MG tablet Take 1 tablet (5 mg) by mouth in the evening 90 tablet 3 Synthroid 150 MCG tablet Take 1 tablet (150 mcg) by mouth Daily 90 tablet 1 tamsulosin (Flomax) 0.4 MG 24 hr capsule Take 1 capsule (0.4 mg) by mouth at bedtime 90 capsule 3 [DISCONTINUED] linezolid (Zyvox) 100 MG/5ML suspension 0.2% 2 drops ophtho x daily [DISCONTINUED] ondansetron (Zofran) 8 MG tablet Take 8 mg by mouth every 8 (eight) hours if needed aspirin 81 MG EC tablet 1 (one) time each day at the same time (Patient not taking: Reported on 09/05/2024) No current facility-administered medications on file prior to visit. Allergies Allergen Reactions Liv Inhibitors Cough Social History Tobacco Use Smoking status: Never Smokeless tobacco: Never Vaping Use Vaping status: Never Used Substance Use Topics Alcohol use: Never Comment: caffeine 2-3 cups per day, soda Review of Systems Constitutional: Negative for fatigue. HENT: Negative for rhinorrhea. Respiratory: Negative for cough and shortness of breath. Cardiovascular: Negative for chest pain. Gastrointestinal: Negative for abdominal distention. Skin: Negative for rash. Neurological: Negative for dizziness. All other systems reviewed and are negative. 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 Wang Past Surgical History: Procedure Laterality Date BASIC RADIATION DOSE CALCULATION 06/29/2017 conjunctival lymphoma BIOPSY SKIN / SQ / MUCOUS MEMBRANE 05/2017 conjunctival lymphoma CHOLECYSTECTOMY 04/25/2012 COLONOSCOPY 2015 EYE SURGERY 2018 x8-cornea transplants, nerve surgeries EYE SURGERY [id number] EYE SURGERY Right 2024 right eye removed SKIN CANCER EXCISION 05/31/2023 basal cell removed from nose Depression: Not at risk (09/05/2024) PHQ-2 PHQ-2 Score: 0 Family History Problem Relation Name Age of Onset Thyroid disease Mother Diverticulitis Mother Other (hyponatremia) Mother Hypertension Mother Other (tawanna's granulomatosis) Father Thyroid disease Brother OBJECTIVE: 09/05/2024 10:21 AM 06/18/2024 9:16 AM 12/10/2023 3:13 PM 07/19/2023 2:41 PM 12/07/2022 4:04 PM 09/27/2021 12:00 PM 11/28/2017 12:00 PM Vitals BMI 33.81 kg/m2 34.02 kg/m2 34.41 kg/m2 34.92 kg/m2 34.28 kg/m2 34.79 kg/m2 35.05 kg/m2 BSA (m2) 2.49 m2 2.5 m2 2.52 m2 2.53 m2 2.51 m2 2.53 m2 2.54 m2 Systolic 152 134 128 136 122 126 108 Diastolic 96 88 86 86 84 84 78 Heart Rate 86 60 80 72 65 SpO2 96 % 98 % 98 % 98 % 99 % Temp 98.2 F 98 F 98.9 F 98.1 F 98 F Height (in) 6' 2 6' 2 6' 2 6' 2 6' 2 6' 2 6' 2 Weight (lb) 263.3 265 268 272 267 271 273 Visit Report Report Report Report Report Report GENERAL EXAM: Physical Exam General Appearance: Alert and oriented. Pleasant affect. No acute distress. Well nourished. Head: Atraumatic normal cephalic. No masses or tenderness. Eyes: Left or right eye absent Ears: External ears normal. No signs or trauma or infection. Nose: Nasal mucosal pink and moist, No discharge or congestion. Normal appearance of the soft tissue of the nose. Throat: Lips moist, Teeth and gums in good condition. Neck: Supple, no obvious range of motion deficits, no swelling or pain. Respiratory: Clear to auscultation, no wheezing, rales or rhonchi Cardiovascular: Regular rate and rhythm, grade 2 out of 6 systolic murmur Musculoskeletal: No gross deformities or malalignment, normal ambulation. Extremities: Mild swelling on the left side, not bad on the right Skin: Warm and dry, no rashes. Neurological: Cranial nerves II-VII grossly intact, no gross neurologic abnormalities or focal defects. Psychiatric: Cooperative, pleasant, no signs of major mood disorder. documented in this encounterFreeman Orthopaedics & Sports [id number] History of Present illness Narrative* Mariluz Rubin MD - 08/25/2024 4:00 PM EDT HEAD AND NECK SURGERY POST OP [facility] HPI I had the pleasure of seeing Mak Garces for a post-operative visit today. Patient is s/p WLE melanoma of the neck with SLNBx on 07/03/24. Now s/p re- resection for close margins and melanoma in situ on08/07/24, no residual melanoma, incidental BCC Patient reports doing well. He has some swelling in the area. Numbness over the incision. Recent SCC of the finger removed by derm, has close follow up for skin checks Physical Examination General: Examination reveals a well-developed, well-nourished patient in no apparent distress. Voice: The patient has no audible dysphonia Respiratory: No stridor or airway distress. Neuro: The patient is oriented, alert and responsive. Oral Cavity: The patient is able to open the mouth widely without trismus. Neck: Incision healing well Pathology: no residual melanoma, incidental BCC ASSESSMENT and PLAN: Neck melanoma, s/p WLE with SLNBx, lymph nodes negative, concern for Mis at margin, re-excision negative for melanoma - Discussed wound care and expectations for healing. Continue vaseline - Discussed avoiding sun and using hat/sunscreen - Emphasized importance of dermatology checks - Follow up with me in 2-3 months, certainly sooner if any issues Mariluz Rubin MD documented in this [facility] Work Phone: [phone] [phone] History of Present illness Narrative* Xavi Wang MD - 08/15/2024 8:50 AM EDT Images from the original note were not included. Follow up Diagnosis: Squamous Cell Carcinoma Location: Left proximal 3rd finger Last visit: 08/04/2024 Procedure performed: Shave biopsy Current treatment: Here today for ED&C All pertinent medical history, medications, and allergies were reviewed. General Exam: alert, oriented to person, place, and time, normal affect, well appearing Unaccompanied A focused exam completed based on patient reported problems, see below: Skin Exam 1. SQUAMOUS CELL CARCINOMA OF SKIN OF FINGER OF LEFT HAND Left Proximal 3rd Finger Hemorrhagic crust at the biopsy site Destruction of lesion Complexity: simple Destruction method: electrodesiccation and curettage Informed consent: discussed and consent obtained Informed consent comment: The risks of the procedure were discussed, including, but not limited to risks of scarring, darker or rn house supervisor pigmentary changes, recurrence, infection, and incomplete removal Timeout: patient name, date of , surgical site, and procedure verified Timeout comment: Patient and provider identified site. Site was marked. Photo was taken and shown to patient, patient verified this is the correct site. Procedure prep: Patient was prepped and draped in usual sterile fashion Prep type: Chlorhexidine Anesthesia: the lesion was anesthetized in a standard fashion Anesthetic: 1% lidocaine w/ epinephrine 1-100,000 buffered w/ 8.4% NaHCO3 Curettage performed in three different directions: Yes Electrodesiccation performed over the curetted area: Yes Curettage cycles: 3 Lesion length (cm): 0.9 Lesion width (cm): 0.9 Margin per side (cm): 0 Final wound size (cm): 0.9 Hemostasis achieved with: electrodesiccation Outcome: patient tolerated procedure well with no complications Post-procedure details: wound care instructions given Post-procedure details comment: Post-procedure instructions were given verbally and in writing. Theoffice will be contacted if the lesion fails to resolve despite treatment, or if a side effect develops such as abnormal crusting, scabbing, reddness, discharge, or tenderness. Additional details: Amount of lidocaine used: 1.0 cc Previous accession number: [id number] Patient instructed to notify office of any signs of recurrence prior to next scheduled visit. Next Visit: 11/04/2024/skin check documented in this encounterFreeman Orthopaedics & Sports [id number] NoteDate of Procedure 08/11/2024 [place] Protocol Safety Checklist A moment of CARE was completed Sign In Sign in communication not applicable due to emergent procedure. Personnel directly involved with the procedure wore the appropriate PEE. Special Equipment: N/A. Patient/surrogate stated/verified patient name, date of , relevant allergies, intended procedure. Provider Confirms: Relevant labs, photos, and/or imaging studies have been reviewed: N/A. Intended patient and procedure match the source document(s) (e.g. consent, associated studies [imaging, pathology]). Consent obtained and matches the intended procedure. Correct side/site marked and visible. Medications required for procedure verified. Fire risk assessed and interventions discussed: N/A. Correct implant(s) confirmed including size and side: N/A. Sign Out All specimens are correctly labeled and sent: N/A. All instruments, equipment, possible retained foreign bodies accounted for. Post-procedure POC communicated to patient or surrogate. Post-procedure POC communicated to patient's multidisciplinary team. Location Left lower lid. Procedure Notes Epilation of lash(es) was performed at slitlamp with forceps without complication.[facility]04-14-2025 Instructions* Patient Instructions* Marta Salazar MD - 08/11/2024 2:03 PM EDT No more pain Ok for prosthesis -->see truck and transport mechanic Outcome: S/P Orbit Surgery Outcomes: Improved condition Post-op Diagnoses:None Follow up yearly for socket check, sooner if issues 2. Left lower lid central trichiasis x 1 Discussed options: Manual epilation (repeat every 8 weeks) vs Radiofrequency ablation (may need multiple treatments, but more permanent solution) Patient would like epilation left lower lid x 1 central 3. General eye care Monocular precautions Polycarbonate glasses at all times Dr. Fuchs then likely comprehensive documented in this encounterSelect Medical [facility] History of Present illness Narrative* Marta Salazar MD - 08/11/2024 1:15 PM EDT S/P EVISCERATION OF OCULAR CONTENTS W/ IMPLANT - Right with Marta Salazar MD on 06/23/2024 PT is here 8 weeks post op PT said OD is feels ok using erythromycin 2-3x daily PT has had Malignant melanoma remove over the past couple months hand, neck, top of head, nose A/P: 1. S/p right evisceration with 20mm PMMA implant, severing right lateral permanent tarsorrhaphy 06/23/24 FINAL DIAGNOSIS Eye, right intraocular contents, evisceration - Cornea with marked scarring and thinning with peripheral vascularization and chronic inflammation: - Recent intraocular hemorrhage; - Disorganized retina with mild gliosis; - See comment. -Ocular Adnexal Lymphoma s/p XRT OU (2400 cGY in 12 fractions) completed 06/29/2017 (follows with ) -JDP 01/17/18 LLL hpg/rotation left and 09/2018 RLL hpg/rotation -s/p PKP 09/12/2017 for perforated corneal ulcer with Dr. Fuchs -Cataract sx OS 11/18/2019 -Dr. Cool ([place]) right entropion repair Summer 2019 Doing well at this time. Excellent result Patient happy with results Exam: Healed well Right anophthalmic socket Right upper lid entropion Left lower lid central trichiasis x 1 -->epilated No injection left eye Left lower lid posterior conj scarring No more pain Ok for prosthesis -->see truck and transport mechanic Outcome: S/P Orbit Surgery Outcomes: Improved condition Post-op Diagnoses:None Follow up yearly for socket check, sooner if issues 2. Left lower lid central trichiasis x 1 Discussed options: Manual epilation (repeat every 8 weeks) vs Radiofrequency ablation (may need multiple treatments, but more permanent solution) Patient would like epilation left lower lid x 1 central 3. General eye care Monocular precautions Polycarbonate glasses at all times Dr. Fuchs then likely comprehensive The documentation for this note was completed by Paula Sarmiento APRN, CNP acting as a scribe for Marta Salazar MD. 08/11/2024 1:58 PM. I have confirmed and edited as necessary the relevant HPI, ophthalmic history, ROS, and the neuro exam findings as obtained by others. I have seen and examined Mak Garces. I have discussed the case and the management of this patient's care with the Resident/Fellow, if applicable. I also have reviewed and agree with the assessment and plan as stated above and agree withall of its relevant components. I, Marta Salazar MD, personally performed the services described in this documentation. All medical record entries made by the scribe were at my direction and in my presence. I have reviewed the chart and discharge instructions (if applicable) and agree that the record reflects my personal performance and is accurate and complete. documented in this encounterSelect Medical [facility]25 NoteHNO ID: [id number] Author: MARTA SALAZAR MD Service: ? Author Type: Physician Type: Progress Notes Filed: 08/11/2024 16:51 Note Text: S/P EVISCERATION OF OCULAR CONTENTS W/ IMPLANT - Right with Marta Salazar MD on 06/23/2024 PT is here 8 weeks post op PT said OD is feels ok using erythromycin 2-3x daily PT has had Malignant melanoma remove over the past couple months hand, neck, top of head, nose A/P: 1. S/p right evisceration with 20mm PMMA implant, severing right lateral permanent tarsorrhaphy 06/23/24 FINAL DIAGNOSIS Eye, right intraocular contents, evisceration - Cornea with marked scarring and thinning with peripheral vascularization and chronic inflammation: - Recent intraocular hemorrhage; - Disorganized retina with mild gliosis; - See comment. -Ocular Adnexal Lymphoma s/p XRT OU (2400 cGY in 12 fractions) completed 06/29/2017 (follows with Dr. Bryant) -JDP 01/17/18 LLL hpg/rotation left and 09/2018 RLL hpg/rotation -s/p PKP 09/12/2017 for perforated corneal ulcer with Dr. Fuchs -Cataract sx OS 11/18/2019 -Dr. Cool ([place]) right entropion repair Summer 2019 Doing well at this time. Excellent result Patient happy with results Exam: Healed well Right anophthalmic socket Right upper lid entropion Left lower lid central trichiasis x 1 -->epilated No injection left eye Left lower lid posterior conj scarring No more pain Ok for prosthesis -->see truck and transport mechanic Outcome: S/P Orbit Surgery Outcomes: Improved condition Post-op Diagnoses:None Follow up yearly for socket check, sooner if issues 2. Left lower lid central trichiasis x 1 Discussed options: Manual epilation (repeat every 8 weeks) vs Radiofrequency ablation (may need multiple treatments, but more permanent solution) Patient would like epilation left lower lid x 1 central 3. General eye care Monocular precautions Polycarbonate glasses at all times Dr. Fuchs then likely comprehensive The documentation for this note was completed by Paula Sarmiento APRN, CNP acting as a scribe for Marta Salazar MD. 08/11/2024 1:58 PM. I have confirmed and edited as necessary the relevant HPI, ophthalmic history, ROS, and the neuro exam findings as obtained by others. I have seen and examined Mak Moran Garces. I have discussed the case and the management of this patient's care with the Resident/Fellow, if applicable. I also have reviewed and agree with the assessment and plan as stated above and agree with all of its relevant components. I, Marta Salazar MD, personally performed the services described in this documentation. All medical record entries made by the scribe were at my direction and in my presence. I have reviewed the chart and discharge instructions (if applicable) and agree that the record reflects my personal performance and is accurate and complete.[facility]04-14-2025 NoteHNO ID: [id number] Author: MARIO SIDDIQUI MD Service: ? Author Type: Physician Type: Progress Notes Filed: 08/12/2024 20:50 Note Text: PATIENT NAME: Mak Garces DATE: 08/12/2024 PRIMARY CARE PHYSICIAN: Dr. Romulo Clark OTHER PHYSICIANS: Dr. Gabo Fuchs ([facility] Ophthalmology) Portions of this encounter note have been copied from the note from 05/20/2024 and has been updated where appropriate, and reflect my current medical decision making from today. 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 Surgery was 06/23/2024. Since that his pain, headaches, and associate symptoms have resolved. 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 Status post WLE and SLNBx at on 07/03/2024. Lymph nodes were negative. He underwent reexcision on 08/07/2024 for positive margins, and ultimate surgical margins were clear. The patient has recovered from surgery well. Per plastic surgery adjuvant therapy not indicated. The patient has had no other significant medical changes. He remains on Hydrea 500 mg twice daily and is tolerating it well. MEDICATIONS: acetaminophen (TYLENOL) 325 mg tablet Take 2 tablets by mouth every 6 hours as needed (Mild Pain (1-3)). ondansetron (ZOFRAN) 8 mg tablet Take 1 tablet by mouth every 8 hours as needed for nausea/vomiting. levocetirizine 5 mg tablet Take 5 mg by mouth. hydroxyurea (HYDREA) 500 mg capsule Take 1 capsule by mouth two times a day. BABY ASPIRIN ORAL Take by mouth. fluoride, sodium, (DENTA-GEL) 1.1 % gel use to BRUSH TEETH 3 to 5 MINUTES once daily ascorbic acid, vitamin C, (VITAMIN C) 500 mg tablet Take 1,000 mg by mouth once daily. levothyroxine (SYNTHROID) 150 mcg tablet Take 1 tablet by mouth once daily. fluticasone (FLONASE) 50 mcg/actuation nasal spray tamsulosin (FLOMAX) 0.4 mg Take 0.4 mg by mouth daily at bedtime. erythromycin (ROMYCIN) 5 mg/gram (0.5 %) ophthalmic ointment Use 1 application in the right eye four times daily. Apply less than a pea-sized amount per application cefTAZidime ophthlamic solution 5% (50 mg/mL) (IP-CPD) Use 1 Drop in the right eye two times a day. erythromycin (ROMYCIN) 5 mg/gram (0.5 %) ophthalmic ointment apply into right eye at bedtime polyvinyl alcohol-povidone (REFRESH) 1.4-0.6 % ophthalmic solution 1 drop into affected eye as needed carboxymethylcellulose (REFRESH TEARS) 0.5 % drop Use 1 Drop in both eyes as needed. 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 PAST SURGICAL HISTORY: PAST SURGICAL HISTORY Procedure Laterality Date CHOLECYSTECTOMY 2011 EPILATION OF TRICHIASIS, FORCEPS Right 04/18/2023 EYE SURGERY HX Left 01/17/2018 CONJUNCTIVOPLASTY, RECONSTRUCTION CUL-DE-SAC W/ BUCCAL GRAFT (Left EYE SURGERY HX Right Eye removal EYE SURGERY PROCEDURE Right 10/10/2017 REVISION OR REPAIR OPERATIVE WOUND EYE ANTERIOR SEGMENT MAJOR OR MINOR KERATOPLASTY PENTRG EXCEPT APHAKIA/PSEUDOPHAKIA Right 09/12/2017 PK (Penetrating Keratoplasty) OCULAR SURFACE RECONSTRUCTION AMNIOTIC MEMBRANE PAST SURGICAL HISTORY OF Right EVISCERATION OF OCULAR CONTENTS W/ IMPLANT - Right with Marta Salazar MD on 06/23/2024 PAST SURGICAL HISTORY OF Melanoma removed from left side of neck PAST SURGICAL HISTORY OF Skin cancer removed REFRACTIVE SURGERY OD (RIGHT EYE) 08/01/2023 REVIEW OF SYSTEMS: General: No weight loss, malaise or fevers. HEENT: Negative for frequent or significant headaches. No changes in hearing, no nose bleeds or other nasal problems. Positive right eye issues. Respiratory: Negative for cough, wheezing or shortness of breath. Cardiovascular: Negative for chest pain, leg swelling or palpitations. GI: Negative for abdominal discomfort, blood in stools or black stools or change in bowel habits. : No history of dysuria, frequency or incontinence. Musculoskeletal: Negative for joint pain or swelling, back pain and muscle pain. Skin: +skin changes, spot on left neck Hemato (more content not included)...[facility]04-14-2025 History of Present illness Narrative* Mario Siddiqui MD - 08/11/2024 8:02 AM EDT PATIENT NAME: Mak Garces DATE: 08/12/2024 PRIMARY CARE PHYSICIAN: Dr. Romulo Clark OTHER PHYSICIANS: Dr. Gabo Fuchs ([facility] Ophthalmology) Portions of this encounter note have been copied from the note from 05/20/2024 and has been updated where appropriate, and reflect my current medical decision making from today. 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 Surgery was 06/23/2024. Since that his pain, headaches, and associate symptoms have resolved. 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 Status post WLE and SLNBx at on 07/03/2024. Lymph nodes were negative. He underwent reexcision on 08/07/2024 for positive margins, and ultimate surgical margins were clear. The patient has recovered from surgery well. Per plastic surgery adjuvant therapy not indicated. The patient has had no other significant medical changes. He remains on Hydrea 500 mg twice daily and is tolerating it well. MEDICATIONS: acetaminophen (TYLENOL) 325 mg tablet Take 2 tablets by mouth every 6 hours as needed (Mild Pain (1-3)). ondansetron (ZOFRAN) 8 mg tablet Take 1 tablet by mouth every 8 hours as needed for nausea/vomiting. levocetirizine 5 mg tablet Take 5 mg by mouth. hydroxyurea (HYDREA) 500 mg capsule Take 1 capsule by mouth two times a day. BABY ASPIRIN ORAL Take by mouth. fluoride, sodium, (DENTA-GEL) 1.1 % gel use to BRUSH TEETH 3 to 5 MINUTES once daily ascorbic acid, vitamin C, (VITAMIN C) 500 mg tablet Take 1,000 mg by mouth once daily. levothyroxine (SYNTHROID) 150 mcg tablet Take 1 tablet by mouth once daily. fluticasone (FLONASE) 50 mcg/actuation nasal spray tamsulosin (FLOMAX) 0.4 mg Take 0.4 mg by mouth daily at bedtime. erythromycin (ROMYCIN) 5 mg/gram (0.5 %) ophthalmic ointment Use 1 application in the right eye four times daily. Apply less than a pea-sized amount per application cefTAZidime ophthlamic solution 5% (50 mg/mL) (IP-CPD) Use 1 Drop in the right eye two times a day. erythromycin (ROMYCIN) 5 mg/gram (0.5 %) ophthalmic ointment apply into right eye at bedtime polyvinyl alcohol-povidone (REFRESH) 1.4-0.6 % ophthalmic solution 1 drop into affected eye as needed carboxymethylcellulose (REFRESH TEARS) 0.5 % drop Use 1 Drop in both eyes as needed. 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 PAST SURGICAL HISTORY: PAST SURGICAL HISTORY Procedure Laterality Date CHOLECYSTECTOMY 2012 EPILATION OF TRICHIASIS, FORCEPS Right 04/18/2023 EYE SURGERY HX Left 01/17/2018 CONJUNCTIVOPLASTY, RECONSTRUCTION CUL-DE-SAC W/ BUCCAL GRAFT (Left EYE SURGERY HX Right Eye removal EYE SURGERY PROCEDURE Right 10/10/2017 REVISION OR REPAIR OPERATIVE WOUND EYE ANTERIOR SEGMENT MAJOR OR MINOR KERATOPLASTY PENTRG EXCEPT APHAKIA/PSEUDOPHAKIA Right 09/12/2017 PK (Penetrating Keratoplasty) OCULAR SURFACE RECONSTRUCTION AMNIOTIC MEMBRANE PAST SURGICAL HISTORY OF Right EVISCERATION OF OCULAR CONTENTS W/ IMPLANT - Right with Marta Salazar MD on 06/23/2024 PAST SURGICAL HISTORY OF Melanoma removed from left side of neck PAST SURGICAL HISTORY OF Skin cancer removed REFRACTIVE SURGERY OD (RIGHT EYE) 08/01/2023 REVIEW OF SYSTEMS: General: No weight loss, malaise or fevers. HEENT: Negative for frequent or significant headaches. No changes in hearing, no nose bleeds or other nasal problems. Positive right eye issues. Respiratory: Negative for cough, wheezing or shortness of breath. Cardiovascular: Negative for chest pain, leg swelling or palpitations. GI: Negative for abdominal discomfort, blood in stools or black stools or change in bowel habits. : No history of dysuria, frequency or incontinence. Musculoskeletal: Negative for joint pain or swelling, back pain and muscle pain. Skin: +skin changes, spot on left neck Hematology/Lymphology: Negative for prolonged bleeding, bruising easily or swollen nodes. Neuro: No history of headaches, syncope, paralysis, seizures or tremors. PHYSICAL EXAM: Vitals: BP 139/91 Pulse 81 Temp 36.6 C (97.9 F) (Temporal) Resp 16 Ht 188 cm (6' 2.02 ) Wt 119.7 kg (263 lb 14.3 oz) SpO2 97% BMI 33.87 kg/m ECOG 0 General: Alert and oriented, no distress, pleasant and cooperative. 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 LABORATORY DATA: Hemoglobin (g/dL) Date Value 08/12/2024 12.5 06/24/2021 12.1 Hematocrit (%) Date Value 08/12/2024 42.4 06/24/2021 40.2 WBC (k/uL) Date Value 08/12/2024 9.30 06/24/2021 15.87 Platelet Count (k/uL) Date Value 08/12/2024 370 06/24/2021 455 RADIOLOGY/OTHER STUDIES: 05/28/2017 MRI orbit IMPRESSION: Normal study. Known abnormality of orbital adnexa not appreciated on this examination. No intracranial masses. 05/11/2017 PET scan IMPRESSION: 1. HEAD/NECK: No FDG avid neoplastic process. No hypermetabolic mass, adenopathy, or fluid collection. 2. CHEST: No FDG avid neoplastic process. No hypermetabolic mass, adenopathy, or fluid collection. 3. ABDOMEN/PELVIS: No FDG avid neoplastic process. No hypermetabolic mass, adenopathy, or fluid collection. 4. EXTREMITIES/SKELETON: No FDG avid osseous process. ASSESSMENT/PLAN: 1. Polycythemia vera (HCC) - ICD9: 238.4, ICD10: D45 (primary diagnosis) Polycythemia vera initially diagnosed September 2014 after presenting with chronic thrombocytosis and leukocytosis (and iron deficiency at the time). Initial evaluation revealed a positive JAK2 mutation. Primary treatment with Hydrea and aspirin started at the time of diagnosis. On Hydrea 500 mg twice daily since April 2022. He also undergoes phlebotomy for hematocrit greater than 45%. Current CBC stable. At this time the patient will continue as is with Hydrea. CBC in 6 weeks with phlebotomy as indicated. Return in 12 weeks for follow-up and labs. 2. 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 Status post primary treatment with bilateral conjunctival radiation therapy completed June 2017 (24 Galindo in 12 fractions). He has had no evidence of recurrent lymphoma sincecompleting treatment, but has had multiple complications involving his eyes requiring multiple ophthalmologic procedures. Status post right eye evisceration 06/23/2024. Currently SARAY. Follow-up with [facility] ophthalmology as scheduled. 3. Acquired hypothyroidism - ICD9: 244.9, ICD10: E03.9 Stable on current medications, continue per PCP. 4. 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 Status post WLE and SLNBx at on 07/03/2024. Lymph nodes were negative. He underwent reexcision on 08/07/2024 for positive margins, and ultimate surgical margins clear. Currently SARAY. Per plastic surgery adjuvant therapy not indicated. Continue management per dermatology/plastic surgery. Mario Siddiqui MD documented in this encounterSelect Medical [facility] Nurse Surgical operation note* Perioperative Nursing Note - Carrillo Dixon RN - 08/07/2024 12:31 PM EDT Pt tolerated water. Vss. Pt rated pain tolerable at a 1/10. Reviewed anesthesia and surgical instructions with patient and at bedside. Patient stated he felt good to go home. Removed ivx1 with catheter tip intact. [facility]04-10-2025 Miscellaneous Notes* Perioperative Nursing Note - Carrillo Dixon RN - 08/07/2024 12:31 PM EDT Pt tolerated water. Vss. Pt rated pain tolerable at a 1/10. Reviewed anesthesia and surgical instructions with patient and at bedside. Patient stated he felt good to go home. Removed ivx1 with catheter tip intact. * Op Note - Mariluz Rubin MD - 08/07/2024 10:28 AM EDT LESION EXCISION, NECK (L) Operative Note Date: 08/07/2024 OR Location: [facility] OR Name: Mak Garces, : 1955, Age: 68 y.o., , Sex: male Diagnosis Pre-op Diagnosis * Malignant melanoma of neck (Multi) [C43.4] Post-op Diagnosis * Malignant melanoma of neck (Multi) [C43.4] Procedures LESION EXCISION, NECK 18053 - CA EXCISION MALIGNANT LESION F/E/E/N/L >4.0 CM Surgeons * Mariluz Rubin - Primary Resident/Fellow/Other Whiskey Proof Reader: Surgeons and Role: * Elvira Varghese MD - Resident - Assisting Staff: Scrub Person: Pauly Marketing Effectiveness Manager: Yin Anesthesia Staff: Anesthesiologist: Lori Winter MD TRAVELING CONSTRUCTION SUPERINTENDENT: Patricia Calloway APRN-TRAVELING CONSTRUCTION SUPERINTENDENT Procedure Summary Anesthesia: General ASA: II Estimated Blood Loss: 5mL Intra-op Medications: Administrations occurring from 1055 to 1250 on 08/07/24: Medication Name Total Dose LR infusion Cannot be calculated Anesthesia Record Intraprocedure I/O Totals Intake LR infusion 700.00 mL Total Intake 700 mL Specimen: ID Type Source Tests Collected by Time 1 : Excision of left neck short stitch superior, long stitch anterior Tissue SKIN EXCISION DERMPATHLAB- DERMATOPATHOLOGY Mariluz Rubin MD 08/07/2024 1037 Drains and/or Catheters: * None in log * Tourniquet Times: Implants: Findings: WLE scar in area of melanoma in situ with >5 mm margins Indications: Mak Garces is an 68 y.o. male who is having surgery for Malignant melanoma of neck (Multi) [C43.4]. Pathology noted possible melanoma in situ at the prior tissue margin, tumor board recommendation for re-excision. The patient was seen in the preoperative area. The risks, benefits, complications, treatment options, non-operative alternatives, expected recovery and outcomes were discussed with the patient. The possibilities of reaction to medication, pulmonary aspiration, injury to surrounding structures, bleeding, recurrent infection, the need for additional procedures, failure to diagnose a condition, and creating a complication requiring transfusion or operation were discussed with the patient. The patient concurred with the proposed plan, giving informed consent. The site of surgery was properly noted/marked if necessary per policy. The patient has been actively warmed in preoperative area. Preopera tive antibiotics have been ordered and given within 1 hours of incision. Venous thrombosis prophylaxis have been ordered including bilateral sequential compression devices Procedure Details: Patient brought to the operating room and time out performed. Anesthesia was induced and LMA placed. An elliptical incision was planned around the prior scar with at least 5 mm width in all directions. This was infiltrated with lidocaine with epinephrine 1:100,000. The patient was prepped and draped in the usual sterile fashion. The incision was sharply incised with a 15 blade. This was carried down through the subcutaneous tissue with monopolar cautery. The lesion was fully excised and marked (short stitch superior, long stitch anterior) and sent for dermatopathology permanent analysis. The area was widely undermined to allow for tension free closure. The area was irrigated, inspected and hemostasis achieved. The incision was closed in layers with 3.0 vicryl suture and 5.0 fast. The patient was returned to anesthesia for awakening. Complications: None; patient tolerated the procedure well. Disposition: PACU - hemodynamically stable. Condition: stable Attending Attestation: I was present and scrubbed for the simmons portions of the procedure. Mariluz Rubin documented in this [facility] Work Phone: 1(506) 494-118804-10-2025 Surgery Surgical operation note* Op Note - Mariluz Rubin MD - 08/07/2024 10:28 AM EDT LESION EXCISION, NECK (L) Operative Note Date: 08/07/2024 OR Location: [facility] OR Name: Mak Garces, : 1955, Age: 68 y.o., , Sex: male Diagnosis Pre-op Diagnosis * Malignant melanoma of neck (Multi) [C43.4] Post-op Diagnosis * Malignant melanoma of neck (Multi) [C43.4] Procedures LESION EXCISION, NECK 53138 - CA EXCISION MALIGNANT LESION F/E/E/N/L >4.0 CM Surgeons * Mariluz Rubin - Primary Resident/Fellow/Other Whiskey Proof Reader: Surgeons and Role: * Elvira Varghese MD - Resident - Assisting Staff: Scrub Person: Pauly Marketing Effectiveness Manager: Yin Anesthesia Staff: Anesthesiologist: Lori Winter MD TRAVELING CONSTRUCTION SUPERINTENDENT: Patricia Calloway APRN-TRAVELING CONSTRUCTION SUPERINTENDENT Procedure Summary Anesthesia: General ASA: II Estimated Blood Loss: 5mL Intra-op Medications: Administrations occurring from 1055 to 1250 on 08/07/24: Medication Name Total Dose LR infusion Cannot be calculated Anesthesia Record Intraprocedure I/O Totals Intake LR infusion 700.00 mL Total Intake 700 mL Specimen: ID Type Source Tests Collected by Time 1 : Excision of left neck short stitch superior, long stitch anterior Tissue SKIN EXCISION DERMPATHLAB- DERMATOPATHOLOGY Mariluz Rubin MD 08/07/2024 1037 Drains and/or Catheters: * None in log * Tourniquet Times: Implants: Findings: WLE scar in area of melanoma in situ with >5 mm margins Indications: Mak Garces is an 68 y.o. male who is having surgery for Malignant melanoma of neck (Multi) [C43.4]. Pathology noted possible melanoma in situ at the prior tissue margin, tumor board recommendation for re-excision. The patient was seen in the preoperative area. The risks, benefits, complications, treatment options, non-operative alternatives, expected recovery and outcomes were discussed with the patient. The possibilities of reaction to medication, pulmonary aspiration, injury to surrounding structures, bleeding, recurrent infection, the need for additional procedures, failure to diagnose a condition, and creating a complication requiring transfusion or operation were discussed with the patient. The patient concurred with the proposed plan, giving informed consent. The site of surgery was properly noted/marked if necessary per policy. The patient has been actively warmed in preoperative area. Preopera tive antibiotics have been ordered and given within 1 hours of incision. Venous thrombosis prophylaxis have been ordered including bilateral sequential compression devices Procedure Details: Patient brought to the operating room and time out performed. Anesthesia was induced and LMA placed. An elliptical incision was planned around the prior scar with at least 5 mm width in all directions. This was infiltrated with lidocaine with epinephrine 1:100,000. The patient was prepped and draped in the usual sterile fashion. The incision was sharply incised with a 15 blade. This was carried down through the subcutaneous tissue with monopolar cautery. The lesion was fully excised and marked (short stitch superior, long stitch anterior) and sent for dermatopathology permanent analysis. The area was widely undermined to allow for tension free closure. The area was irrigated, inspected and hemostasis achieved. The incision was closed in layers with 3.0 vicryl suture and 5.0 fast. The patient was returned to anesthesia for awakening. Complications: None; patient tolerated the procedure well. Disposition: PACU - hemodynamically stable. Condition: stable Attending Attestation: I was present and scrubbed for the simmons portions of the procedure. Mariluz Rubin [facility] Work Phone: 1(902) 373-143104-10-2025 Hospital Discharge instructions* Discharge Instructions* Elvira Varghese MD - 08/07/2024 9:44 AM EDT DEPARTMENT OF OTOLARYNGOLOGY (ENT) DISCHARGE INSTRUCTIONS C O N F I D E N T I A L I N F O R M A T I O N Mak Garces [id number] The following is a brief overview of your hospitalization. Some of the information contained on this summary may be confidential. This information should be kept in your records and should be shared with your regular doctor. Admission Date:08/07/2024 8:56 AM Discharge Date: No discharge date for patient encounter. Disposition: home PRINCIPAL DIAGNOSIS (reason after study for this admission): melanoma of neck Physicians: Dr. Rubin Operations performed while hospitalized: Wide local excision melanoma Treatment/wound care: Keep area(s) clean and dry. It is okay to shower 48 hours after time of surgery. Do not scrub wound(s), pat dry. Do not submerge wound(s) in standing water until seen in followup (no tub bathing, swimming, or hottubs). Please visually inspect your wound(s) at least once daily. If the wound(s) are in a difficult to see location, please use a mirror or have someone else assist with visual inspection. If you have sutures that you can see outside of the skin or vivi: Sutures are resorbable and do not need to be removed. Do not remove the vivi/sutures on your own. Return sooner or call if wound(s) or surrounding area have increased swelling, pain, warmth, redness, or drainage that is thick, yellow and/or green. Apply vaseline to incision line twice per day for 2 weeks while your incision heals If you see white bandages on your neck: You have steri strips (small paper tape) along your incision. You can shower, pat dry; do not soak in a tub. The steri strips will fall off on their own; do not peel them off. Pain Control: Adequate management: Tylenol or ibuprofen can be taken as prescribed as needed for breakthrough pain. Activity after Discharge: No heavy lifting, weight bearing as tolerated, no driving until mobility is returned to normal. Do not submerge wound(s) in standing water for 7 days after surgery (no tub bathing, swimming, or hot tubs). Do not drive or operate heavy machinery while taking narcotic pain medications as these medicationscan alter perception, impair judgement, and slow reaction times. Diet: regular Call Provider if: Breathing faster than normal Breathing harder than normal or having retractions Fever of 100.4 (38 C) or higher Temperature is greater than 102 degrees Chills Drinking less than normal Not being able to go 4-6 hours between albuterol treatments Urinating less than normal, over 1 day Acting very sleepy and difficult to awaken Vomiting (throwing up) and not able to eat or drink for 12 hours 3 or more loose, watery bowel movements in 24 hours (diarrhea) Any new concerning symptoms Additional Instructions: Call [phone] with questions . AFTER HOURS PLEASE CALL [phone] and ask for ENT resident button machine operator documented in this encounterUniversity [facility]als [facility] Work Phone: [phone]) 948-786504-10-2025 Attending History and physical note* Elvira Varghese MD - 08/07/2024 9:06 AM EDT H&P reviewed. The patient was examined and there are no changes to the H&P. Cosigned by Mariluz Rubin MD at 08/07/2024 9:08 AM EDT Source Note - Mariluz Rubin MD - 07/21/2024 11:00 AM EDT HEAD AND NECK SURGERY POST OP [facility] HPI I had the pleasure of seeing Mak Garces for a post-operative visit today. Patient is s/p WLE melanoma of the neck with SLNBx on 07/03/24. Patient reports doing well. Healing well, no concerns. Pain controlled. No swelling or bleeding. Presents with today Physical Examination Vitals: Temp 35.9 C (96.6 F) Ht 1.88 m (6' 2 ) Wt 118 kg (260 lb) BMI 33.38 kg/m General: Examination reveals a well-developed, well-nourished patient in no apparent distress. The patient has no audible dysphonia, stridor or airway distress. The patient is oriented, alert and responsive. Oral Cavity: The patient is able to open the mouth widely without trismus. The floor of mouth and oral tongue are soft, and no mucosal abnormalities are noted on the lips or within the oral cavity. The oral tongue is fully mobile and midline on protrusion. Oropharynx: There are no mucosal abnormalities noted within the oropharynx. The soft palate elevates symmetrically, the tonsils and base of tongue are normal to inspection and palpation. Salivary glands: There are no palpable masses of the parotid or submandibular glands. Neuro: Cranial nerves 2-12 are without obvious abnormality. Neck: The neck is soft and symmetric. There is no palpable adenopathy. Incision healing well Pathology: lymph nodes negative, cannot rule out melanoma in situ at 9 o'clock position. ASSESSMENT and PLAN: Neck melanoma, s/p WLE with SLNBx, lymph nodes negative, concern for Mis at margin - Discussed wound care and expectations for healing - Reviewed pathology at length, discussed options including re-excision with myself or [employer] employment representative. He would like to proceed with re-excision and primary closure. Will plan to do this next available. Risks and benefits discussed at length and he would like to proceed. MD Mariluz Gardiner MD [facility] Work Phone: [phone] 856-331304-10-2025 History and physical note* Elvira Varghese MD - 08/07/2024 9:06 AM EDT H&P reviewed. The patient was examined and there are no changes to the H&P. Cosigned by Mariluz Rubin MD at 08/07/2024 9:08 AM EDT Source Note - Mariluz Rubin MD - 07/21/2024 11:00 AM EDT HEAD AND NECK SURGERY POST OP [facility] HPI I had the pleasure of seeing Mak Garces for a post-operative visit today. Patient is s/p WLE melanoma of the neck with SLNBx on 07/03/24. Patient reports doing well. Healing well, no concerns. Pain controlled. No swelling or bleeding. Presents with today Physical Examination Vitals: Temp 35.9 C (96.6 F) Ht 1.88 m (6' 2 ) Wt 118 kg (260 lb) BMI 33.38 kg/m General: Examination reveals a well-developed, well-nourished patient in no apparent distress. The patient has no audible dysphonia, stridor or airway distress. The patient is oriented, alert and responsive. Oral Cavity: The patient is able to open the mouth widely without trismus. The floor of mouth and oral tongue are soft, and no mucosal abnormalities are noted on the lips or within the oral cavity. The oral tongue is fully mobile and midline on protrusion. Oropharynx: There are no mucosal abnormalities noted within the oropharynx. The soft palate elevates symmetrically, the tonsils and base of tongue are normal to inspection and palpation. Salivary glands: There are no palpable masses of the parotid or submandibular glands. Neuro: Cranial nerves 2-12 are without obvious abnormality. Neck: The neck is soft and symmetric. There is no palpable adenopathy. Incision healing well Pathology: lymph nodes negative, cannot rule out melanoma in situ at 9 o'clock position. ASSESSMENT and PLAN: Neck melanoma, s/p WLE with SLNBx, lymph nodes negative, concern for Mis at margin - Discussed wound care and expectations for healing - Reviewed pathology at length, discussed options including re-excision with myself or [employer] employment representative. He would like to proceed with re-excision and primary closure. Will plan to do this next available. Risks and benefits discussed at length and he would like to proceed. MD Mariluz Gardiner MD documented in this [facility] Work Phone: 1(496) 199-287704-07-2025 History of Present illness Narrative* Taylor Marquez, YOUTH MINISTER-METER/RELAY CRAFTSMAN - 08/04/2024 11:10 AM EDT Images from the original note were not included. Skin Check Location: Patient requests a full body skin examination Dermatologic history: history of Actinic Keratosis, history of Basal Cell Carcinoma, history of Melanoma, history of atypical mole (mild & monitoring) Last visit: 3 months ago Established patient Melanoma History Location: Left Posterior Neck Date of Melanoma dx: 05/20/2024 Melanoma details: Malignant Melanoma Breslow's depth: 0.3 mm Mitotic rate: 0 Ulceration: present Melanoma treatment: Referred for wide excision & SLNB with Serg Foster MD. SLNB negatie Additional testing: NM Lymphoscintigram. Patient scheduled for 2nd excision on 08/07/2024. All pertinent medical history, medications, and allergies were reviewed. General Exam: alert, oriented to person, place, and time, normal affect, well appearing Unaccompanied Scalp, Examined , exam limited by hair Right leg Examined Head, Face Examined , Exam limited by rapp and mustache Left leg Examined Neck Examined Right foot Examined Chest Examined Left foot Examined Back Examined Buttocks Examined Abdomen Examined Digits,nails: Examined Right arm Examined Left arm Examined Lymphatics: Not examined Hands Examined no cervical lymphadenopathy, no supraclavicular lymphadenopathy, no axillary lymphadenopathy 1. Melanocytic nevus of trunk Scattered benign appearing, regular brown to light brown melanocytic papules and macules with similar morphology Counseled regarding these benign growths. Rarely, a nevus can develop into malignant melanoma, so any changing nevi should be promptly re-evaluated. 2. Actinic keratosis (12) Dorsum of Nose, Left Eyebrow, Left Forehead, Left Proximal 3rd Finger, Mid Forehead, Mid Frontal Scalp, Mid Parietal Scalp (4), Right Dorsal Hand, Right Forehead Erythematous scaly papules Patient was counseled regarding these sun-induced growths that can develop into squamous cell carcinoma if left untreated. Discussed treatment with cryotherapy. It was emphasized that any treated lesions that fail to resolve should be re- evaluated. Cryotherapy performed today; see procedure note Diagnosis: Actinic keratosis Indication: Precancerous Location: see skin exam Consent: Verbal consent was obtained and risks were discussed, including, but not limited to risks of scarring, darker or rn house supervisor pigmentary changes, recurrence, incomplete removal and infection. Method: Liquid nitrogen was used to treat the lesion(s) with two 5-10 second freeze-thaw cycles. Eyes were shielded using cotton pad during procedure Number of lesions treated: 12 Post-procedure instructions: Instructions were given orally and in writing. The office will be contacted if the lesion fails to resolve despite treatment, or if a side effect develops such as abnormal crusting, scabbing, redness or tenderness Cryotherapy, skin lesion - Dorsum of Nose, Left Eyebrow, Left Forehead, Left Proximal 3rd Finger, Mid Forehead, Mid Frontal Scalp, Mid Parietal Scalp (4), Right Dorsal Hand, Right Forehead 3. Neoplasm of unspecified behavior of bone, soft tissue, and skin Left Proximal 3rd Finger Hyperkeratotic papule Lesion biopsy Type of biopsy: tangential Informed consent: discussed and consent obtained Informed consent comment: The risks and benefits of the biopsy were discussed. Risks include but are not limited to bleeding, infection, scarring, pain, and nerve damage. An opportunity to ask questions prior to the procedure was permitted and all questions were answered. Patient was prepped and draped in usual sterile fashion: area cleansed with alcohol. Anesthesia: the lesion was anesthetized in a standard fashion Anesthetic: 1% lidocaine w/ epinephrine 1-100,000 buffered w/ 8.4% NaHCO3 Instrument used: DermaBlade Hemostasis achieved with: electrodesiccation Outcome: patient tolerated procedure well Outcome comment: The specimen was placed in a prelabeled formalin container to be sent for pathology Post-procedure details: sterile dressing applied and wound care instructions given Post-procedure details comment: Emphasized need to contact clinic for any signs of infection, uncontrollable bleeding, or complications. Dressing type: bandage Additional details: Photo taken Amount of lidocaine used: 0.5 cc Specimen A - Dermatopathology exam Differential Diagnosis: SCC vs AK Check Margins: No Size of lesion: 0.9 x 0.9 cm 4. Capillary angioma Scattered michelle-red papule(s). The patient was informed that angiomas are benign growths on the the skin. No treatment is necessary. 5. Lentigines Scattered au macules in sun-exposed areas. The patient was informed that lentigines are benign pigmented lesions that occur on sun-exposed andsun-damaged skin. No treatment is necessary. Recommended regular use of broad spectrum sunscreen SPF 30 or higher 6. Seborrheic keratosis Stuck on verrucous, variably pigmented papules and plaques. Patient was counseled regarding these benign growths. Removal is normally not necessary, but they may be removed if they are symptomatic or for cosmetic reasons. 7. History of basal cell carcinoma Left Forearm - Posterior No evidence of recurrence at BCC scar. The patient was counseled that scars from excisional sites of nonmelanoma skin cancers should be monitored closely for recurrence. The patient was instructed to contact the office for any new, changing, or symptomatic moles. The patient was also instructed to contact the office for any new lesions that develop within or around the previous surgery scar. 8. History of malignant melanoma of skin Left Posterior Neck No evidence of recurrence at melanoma scar. The patient was counseled that scars from excisional sites of melanoma should be monitored closely for recurrence. The patient was instructed to contact the office for any new, changing, or symptomatic moles. The patient was also instructed to contact the office for any new lesions that develop within or around the previous melanoma scar. Next Visit: 3 months FBSE documented in this encounterFreeman Orthopaedics & Sports [id number] Miscellaneous Notes* Telephone Encounter - Vannesa Woodward MA - 10/27/2024 11:44 AM EDT Patient coming in Sunday11/04/24 for Transition of care. Do you want labs before being seen. If so,please add lab orders. Thanks. Vannesa Woodward MA documented in this encounterSelect Medical [facility] History of Present illness Narrative* SELMA Youngblood - 07/21/2024 11:00 AM EDT po * Mariluz Rubin MD - 07/21/2024 11:00 AM EDT HEAD AND NECK SURGERY POST OP [facility] HPI I had the pleasure of seeing Mak Garces for a post-operative visit today. Patient is s/p WLE melanoma of the neck with SLNBx on 07/03/24. Patient reports doing well. Healing well, no concerns. Pain controlled. No swelling or bleeding. Presents with today Physical Examination Vitals: Temp 35.9 C (96.6 F) Ht 1.88 m (6' 2 ) Wt 118 kg (260 lb) BMI 33.38 kg/m General: Examination reveals a well-developed, well-nourished patient in no apparent distress. The patient has no audible dysphonia, stridor or airway distress. The patient is oriented, alert and responsive. Oral Cavity: The patient is able to open the mouth widely without trismus. The floor of mouth and oral tongue are soft, and no mucosal abnormalities are noted on the lips or within the oral cavity. The oral tongue is fully mobile and midline on protrusion. Oropharynx: There are no mucosal abnormalities noted within the oropharynx. The soft palate elevates symmetrically, the tonsils and base of tongue are normal to inspection and palpation. Salivary glands: There are no palpable masses of the parotid or submandibular glands. Neuro: Cranial nerves 2-12 are without obvious abnormality. Neck: The neck is soft and symmetric. There is no palpable adenopathy. Incision healing well Pathology: lymph nodes negative, cannot rule out melanoma in situ at 9 o'clock position. ASSESSMENT and PLAN: Neck melanoma, s/p WLE with SLNBx, lymph nodes negative, concern for Mis at margin - Discussed wound care and expectations for healing - Reviewed pathology at length, discussed options including re-excision with myself or [employer] veterans employment representative. He would like to proceed with re-excision and primary closure. Will plan to do this next available. Risks and benefits discussed at length and he would like to proceed. MD Mariluz Gardiner MD documented in this [facility] Work Phone: [phone]) 564-552203-06-2025 Hospital Discharge instructions* Discharge Instructions* Mariluz Rubin MD - 07/03/2024 7:17 AM EST [facility] DEPARTMENT OF OTOLARYNGOLOGY (ENT): POST-OPERATIVE INSTRUCTIONS Operations performed: Wide local excision of neck melanoma, sentinel lymph node biopsy Treatment/wound care: Keep area(s) clean and dry. It is okay to shower 48 hours after time of surgery. Do not scrub wound(s), pat dry. Do not submerge wound(s) in standing water until seen in followup (no tub bathing, swimming, or hottubs). Please visually inspect your wound(s) at least once daily. If the wound(s) are in a difficult to see location, please use a mirror or have someone else assist with visual inspection. If you see white bandages on your neck: You have steri strips (small paper tape) along your incision. You can shower, pat dry; do not soak in a tub. The steri strips will fall off on their own; do not peel them off. Expected Post-Surgical Symptoms: You may experience pain and a hoarse/weak voice. These symptoms are often temporary and may be due to irritation from the breathing tube that's inserted during surgery. Swallowing difficulties due topain for several days. Pain Control: Adequate management: tramadol can be taken as prescribed as needed for breakthrough pain. Activity after Discharge: When you go home, you can usually return to your regular activities. Avoid strenuous activities, such as bicycle riding, jogging, weight lifting, or aerobic exercise, for at least 2 weeks. No travelling for at least 7 days following surgery. Do not drive or operate heavy machinery while taking narcotic pain medications as these medicationscan alter perception, impair judgement, and slow reaction times. Diet: resume normal diet Additional Instructions: Medicines DO NOT take blood thinners, such as warfarin (Coumadin), clopidogrel (Plavix), or aspirin until instructed to do so from your surgeon. Do not take aspirin, medicines that contain aspirin, or non-steroidal anti- inflammatory medicines such as ibuprofen (Advil, Motrin) or naproxen (Aleve) for 2 weeks after surgery unless otherwise directed by your doctor. Take pain medicines exactly as directed. If you are prescribed antibiotics, take them as directed. Do not stop taking them just because you feel better. You need to take the full course of antibiotics. If you have neck pain that gets worse, redness or neck swelling call your doctor. If severe symptoms call or go to your local Emergency Room Important Phone Numbers Dr. Mariluz Rubin: Office number during business hours: [phone] Evenings/Weekends Emergency: [phone] - please ask for the ENT resident on-call documented in this [facility] Work Phone: 1([phone]) 195-487003-06-2025 Attending History and physical note* Deepti Hall MD - 07/03/2024 6:52 AM EST H&P reviewed. The patient was examined and there are no changes to the H&P. Cosigned by Mariluz Rubin MD at 07/03/2024 7:46 AM EST Source Note - Mariluz Rubin MD - 06/09/2024 9:00 AM EST Images from the original note were not included. 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 The patient reports a history of multiple skin lesions, most recently had biopsy of a nasal ala (BCC) and neck (melanoma) by his veterans employment representative. He underwent excision of the nose lesion with Dr Foster and is referred to me for the neck melanoma. No itching, pain, drainage or bleeding in the area. Has stiches on his nose from recent procedure that need to be removed. Has had sun exposure throughout his life. Prior skin cancers to the head and neck, no prior melanoma. The patient denies having prior trauma or surgery to their head and neck. There is not a personal or family history of blood clots, easy bleeding or bruising, or anesthesia concerns. He lives at homewith his who accompanies him today and assists with history and treatment planning. Never smoker Tobacco use: The patient reports that he has never smoked. He has never been exposed to tobacco smoke. He has never used smokeless tobacco. Alcohol Use: The patient reports no history of alcohol use. Physical Examination Vitals: Temp 36.4 C (97.5 F) (Temporal) Wt 122 kg (268 lb 6.4 oz) General: Examination reveals a well-developed, well-nourished patient in no apparent distress. The patient has no audible dysphonia, stridor or airway distress. The patient is oriented, alert and responsive. Skin: multiple spots throughout face and scalp, left 1 cm plaque-like lesion posterior SCM Oral Cavity: The patient is able to open the mouth widely without trismus. The floor of mouth and oral tongue are soft, and no mucosal abnormalities are noted on the lips or within the oral cavity. The oral tongue is fully mobile and midline on protrusion. Oropharynx: There are no mucosal abnormalities noted within the oropharynx. The soft palate elevates symmetrically, the tonsils and base of tongue are normal to inspection and palpation. Salivary glands: There are no palpable masses of the parotid or submandibular glands. Neuro: Cranial nerves 2-12 are without obvious abnormality. Neck: The neck is soft and symmetric. There is no palpable adenopathy. DATA REVIEWED: Discussions with other providers: I discussed this case with Sejal Simms (Derm) regarding initialreferral to Dr Foster (Derm) and given concerning features felt patient warranted SLNBx Review of prior medical records: I reviewed the patient's medical records which included a clinic note from Dr. Foster from 06/03/24 who detailed excision of the left nasal ala malignancy Pathology: I reviewed the pathology report from the biopsy 05/20/24 which demonstrated shave biopsy with 0.3 mm depth, ulceration present, lentigo malignant type, 0 mm mitotic rate; reviewed at 05/30/24 and 0.4 mm depth with presence at deep and superficial margin, ulceration present ASSESSMENT and PLAN: Cancer Staging Malignant melanoma of neck (Multi), Staging form: Melanoma of the Skin, AJCC 8th Edition, Clinical:cT1b - Unsigned - Exam and pathology findings discussed with patient and family - Recommend proceeding with WLE melanoma with 1 cm margins and [place] Lymph node biopsy - Reviewed the procedure for SLNBx including injection with radiotracer dye, use of imaging and gamma probe to identify the probable sentinel node. I will address risks specific to the node location on the day of surgery. General risks and benefits discussed including pain, bleeding, infection, scar, need or further procedures, risks of anesthesia, poor cosmetic outcome, damage to surrounding structures including nerves and blood vessels. Also reviewed the risk of not being able to localize a sentinel lymph node - Reconstruction options discussed including staged reconstruction, split or full thickness skin graft, primary closure, local tissue rearrangement and referral to my facial plastic surgery colleagues. For this patient, I recommend staged v same-day local tissue rearrangement. Left nasal malignancy s/p excision and closure with Dr Foster - sutures removed today, healing well Questions were answered and they are in agreement with the plan Mariluz Rubin MD [facility] Work Phone: [phone]) 802-279503-06-2025 History and physical note* Deepti Hall MD - 07/03/2024 6:52 AM EST H&P reviewed. The patient was examined and there are no changes to the H&P. Cosigned by Mariluz Rubin MD at 07/03/2024 7:46 AM EST Source Note - Mariluz Rubin MD - 06/09/2024 9:00 AM EST Images from the original note were not included. 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 The patient reports a history of multiple skin lesions, most recently had biopsy of a nasal ala (BCC) and neck (melanoma) by his veterans employment representative. He underwent excision of the nose lesion with Dr Foster and is referred to me for the neck melanoma. No itching, pain, drainage or bleeding in the area. Has stiches on his nose from recent procedure that need to be removed. Has had sun exposure throughout his life. Prior skin cancers to the head and neck, no prior melanoma. The patient denies having prior trauma or surgery to their head and neck. There is not a personal or family history of blood clots, easy bleeding or bruising, or anesthesia concerns. He lives at homewith his who accompanies him today and assists with history and treatment planning. Never smoker Tobacco use: The patient reports that he has never smoked. He has never been exposed to tobacco smoke. He has never used smokeless tobacco. Alcohol Use: The patient reports no history of alcohol use. Physical Examination Vitals: Temp 36.4 C (97.5 F) (Temporal) Wt 122 kg (268 lb 6.4 oz) General: Examination reveals a well-developed, well-nourished patient in no apparent distress. The patient has no audible dysphonia, stridor or airway distress. The patient is oriented, alert and responsive. Skin: multiple spots throughout face and scalp, left 1 cm plaque-like lesion posterior SCM Oral Cavity: The patient is able to open the mouth widely without trismus. The floor of mouth and oral tongue are soft, and no mucosal abnormalities are noted on the lips or within the oral cavity. The oral tongue is fully mobile and midline on protrusion. Oropharynx: There are no mucosal abnormalities noted within the oropharynx. The soft palate elevates symmetrically, the tonsils and base of tongue are normal to inspection and palpation. Salivary glands: There are no palpable masses of the parotid or submandibular glands. Neuro: Cranial nerves 2-12 are without obvious abnormality. Neck: The neck is soft and symmetric. There is no palpable adenopathy. DATA REVIEWED: Discussions with other providers: I discussed this case with Sejal Simms (Derm) regarding initialreferral to Dr Foster (Derm) and given concerning features felt patient warranted SLNBx Review of prior medical records: I reviewed the patient's medical records which included a clinic note from Dr. Foster from 06/03/24 who detailed excision of the left nasal ala malignancy Pathology: I reviewed the pathology report from the biopsy 05/20/24 which demonstrated shave biopsy with 0.3 mm depth, ulceration present, lentigo malignant type, 0 mm mitotic rate; reviewed at 05/30/24 and 0.4 mm depth with presence at deep and superficial margin, ulceration present ASSESSMENT and PLAN: Cancer Staging Malignant melanoma of neck (Multi), Staging form: Melanoma of the Skin, AJCC 8th Edition, Clinical:cT1b - Unsigned - Exam and pathology findings discussed with patient and family - Recommend proceeding with WLE melanoma with 1 cm margins and [place] Lymph node biopsy - Reviewed the procedure for SLNBx including injection with radiotracer dye, use of imaging and gamma probe to identify the probable sentinel node. I will address risks specific to the node location on the day of surgery. General risks and benefits discussed including pain, bleeding, infection, scar, need or further procedures, risks of anesthesia, poor cosmetic outcome, damage to surrounding structures including nerves and blood vessels. Also reviewed the risk of not being able to localize a sentinel lymph node - Reconstruction options discussed including staged reconstruction, split or full thickness skin graft, primary closure, local tissue rearrangement and referral to my facial plastic surgery colleagues. For this patient, I recommend staged v same-day local tissue rearrangement. Left nasal malignancy s/p excision and closure with Dr Foster - sutures removed today, healing well Questions were answered and they are in agreement with the plan Mariluz Rubin MD documented in this encounterTri[facility] Work Phone: [phone]) 488-701903-04-2025 Instructions* Patient Instructions* Nohelia Shook MD - 07/01/2024 12:38 PM EST Removed sutures today without complication; pt tolerated well. Keep conformer in place. If it falls out, clean it off and put it back in. No sign of infection. Use erythromycin ointment to incisions four times a day x 1wk then twice daily x 1 more week, then stop. Warm compresses until swelling resolves. May resume normal activities - no swimming x 1 more week. Follow up with Dr. Salazar in 6 weeks, sooner if issues. documented in this encounterSelect Medical [facility]03-04-2025 NoteHNO ID: [id number] Author: NOHELIA SHOOK MD Service: ? Author Type: Fellow Type: Progress Notes Filed: 07/01/2024 12:43 Note Text: A/P: 1. s/p right evisceration with implant and suture tarsorrhaphy, severing right lateral permanent tarsorrhaphy 06/23/[address] [facility] Doing well at this time. Had some constipation after surgery, but this has resolved since stopping opiates for pain control. States pain has been significantly better since surgery. Now feeling back to normal again. Exam: Anticipated postsurgical ecchymosis and edema Conjunctival incisions healing well No erythema or warmth Conformer in place Irregular lid margin, misdirected and missing lashes. Severed permanent tarsorrhaphy laterally Removed suture tarsorrhaphy today without complication; pt tolerated well. Keep conformer in place. If it falls out, clean it off and put it back in. No sign of infection. Patch removed today use erythromycin ointment to incisions four times a day x 1wk then twice daily x 1 more week, then stop. Warm compresses until swelling resolves. May resume normal activities - no swimming x 1 more week. Follow up with Dr. Salazar in 6 weeks, sooner if issues. Attestation: I have confirmed and edited as necessary the relevant ophthalmic history, ROS, and the neuro exam findings as obtained by others. I have seen and examined Mak Garces. I also have reviewed and agree with the assessment and plan as stated above and agree with all of its relevant components. I, Nohelia Shook MD, personally performed the services described in this documentation. I have reviewed the chart and discharge instructions (if applicable) and agree that the record reflects my personal performance and is accurate and complete. Nohelia Shook, [facility]03-04-2025 History of Present illness Narrative* Nohelia Shook MD - 07/01/2024 12:18 PM EST A/P: 1. s/p right evisceration with implant and suture tarsorrhaphy, severing right lateral permanent tarsorrhaphy 06/23/[address] [facility] Doing well at this time. Had some constipation after surgery, but this has resolved since stopping opiates for pain control.States pain has been significantly better since surgery. Now feeling back to normal again. Exam: Anticipated postsurgical ecchymosis and edema Conjunctival incisions healing well No erythema or warmth Conformer in place Irregular lid margin, misdirected and missing lashes. Severed permanent tarsorrhaphy laterally Removed suture tarsorrhaphy today without complication; pt tolerated well. Keep conformer in place. If it falls out, clean it off and put it back in. No sign of infection. Patch removed today use erythromycin ointment to incisions four times a day x 1wk then twice daily x 1 more week, then stop. Warm compresses until swelling resolves. May resume normal activities - no swimming x 1 more week. Follow up with Dr. Salazar in 6 weeks, sooner if issues. Attestation: I have confirmed and edited as necessary the relevant ophthalmic history, ROS, and the neuro exam findings as obtained by others. I have seen and examined Mak Garces. I also have reviewed and agree with the assessment and plan as stated above and agree with all of its relevant components. I, Nohelia Shook MD, personally performed the services described in this documentation. I have reviewed the chart and discharge instructions (if applicable) and agree that the record reflects my personal performance and is accurate and complete. Nohelia Shook MD documented in this encounterSelect Medical [facility]03-04-2025 NoteHNO ID: [id number] Author: SIOBHAN BEAR RN Service: ? Author Type: Registered Nurse Type: Progress Notes Filed: 07/01/2024 08:35 Note Text: Patient Hct 41.5 today, does not meet parameters for phlebotomy. Pt given results and PSS wrote down next appt date/time per pt request. [facility]obhan Bear [facility] History of Present illness Narrative* Siobhan Bear RN - 07/01/2024 8:27 AM EST Patient Hct 41.5 today, does not meet parameters for phlebotomy. Pt given results and PSS wrote down next appt date/time per pt request. Siobhan Bear RN documented in this encounterSelect Medical [facility]02-25-2025 Telephone encounter Note * Telephone Encounter - Marta Salazar MD - 06/24/2024 9:53 AM EST Called Re: surgery Everything went well ; discussed patient has scarring of conjunctiva and may be difficult to fit prothesis in future ; may need additional reconstruction but hopefully can avoid (prosthesis not until6-8 wks from now) Patient without pain Patch in place Patient also reported new floater left eye, no flashes of light Patient reports he spoke to Dr. Fuchs and he said he would see for dilated fundus exam this week , Retinal detachment precautions given to patient; any flashes of light, black spots, shade over vision needs to get seen immediately Looking back at records: 06/10/24 dilated fundus exam with Posterior vitreous detachment (PVD) left eye Fundus Exam Right Left Posterior Vitreous PVD Disc Normal C/D Ratio 0.2 Macula Normal Vessels Normal Periphery Normal Discussed with patient if he has a local eye doctor and can go in for a dilated fundus exam today that would be good; patient defers and understands Retinal detachment precautions and will see Dr. 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 Fuchs and he said he would see for dilated fundus exam this week , Retinal detachment precautions given to patient; any flashes of light, black spots, shade over vision needs to get seen immediately Looking back at records: 06/10/24 dilated fundus exam with Posterior vitreous detachment (PVD) left eye Fundus Exam Right Left Posterior Vitreous PVD Disc Normal C/D Ratio 0.2 Macula Normal Vessels Normal Periphery Normal Discussed with patient if he has a local eye doctor and can go in for a dilated fundus exam today that would be good; patient defers and understands Retinal detachment precautions and will see Dr. Fuchs All questions answered Patient appreciative of call * Telephone Encounter - Ruben Nieves - 06/24/2024 8:29 AM EST LV: 05/20/24 06/23/24 - Surgery FV: 07/01/24 (, Norma) Spoke with Norma this morning. She said she hadn't been contacted by anyone after surgery regardingthe outcome of the surgery etc. She would appreciate a call from someone to go over details. Patient reports a restful night but, is seeing floaters OS, which weren't there before surgery. Reported to Dr. Fuchs who said he would see him anytime this week. Marta Salazar MD filed at 05/20/2024 12:16 PM Status: Signed Leaking right eye starting on the way here. Eye was glued shut four days ago. No pain today. 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 Bryant S/p Penetrating keratoplasty in a phakic right eye using a 8.5 mm host and 9.0 mm donor trephination 09/12/2017 - Dr. Fuchs S/p Revision of operative wound, anterior segment right eye, Multilayered sutured amniotic membranegraft, Right eye, Temporary lateral tarsorhhaphy, Right eye - 10/10/2017 - Dr. Fuchs S/p LLL hpg/rotation 01/17/2018 - JDP S/p LLL hpg/rotation 10/10/2018 - JDP s/p right orbitotomy for supraorbital nerve anastamoses with axogen donor graft for corneal neurotization, Right conjunctivoplasty, Right temporary tarsorrhaphy, Right permanent medial tarsorrhaphy, Right lower eyelid debulking hard palate graft [facility] 06/10/20 S/p Penetrating keratoplasty in a phakic right eye using a 8.0 mm host and 8.5 mm donor trephination, Complex cataract extraction requiring mechanical dilation with iris hooks and capsular staining with trypan blue, right eye, Lysis of posterior iris synechiae, right eye, Anterior vitrectomy, righteye, Temporary tarsorrhaphy, right eye 05/23/21 - Dr. Fuchs S/p eyelid surgeries with Dr. Cool and Dr. Nolen Saw Dr. Nolen 05/14/24 05/16/[address] Dr[address] Roy [address]. Fuchs: pt felt gush of fluid and pain, attempted to glue, referred for evisceration B scan 08/31/22: Date of Procedure 08/31/2022. Data Miner Information DENIA Galo, NATALIA 08/31/2022 10:58 AM . Notes B scan OD: 1) Interval resolution in the serous choroidal detachments 360-degrees. 2) Interval decrease in the density of the vitreous opacities. Today, opacities are mild through the lid. Exam: Light perception right eye - MD verified Right upper lid ptosis with trichiasis/Right upper lid entropion 2+ injection right eye No julieta kun positive area but thinned cornea inferior/centrally <0.1 cm , no glue seen Tenderness right eye (difficult to lift eyelid due to sensitivity) Right lateral permanent tarsorrhaphy in place Neovascularization right cornea Trichiasis Right upper lid Patient would like to try and save his right eye Would defer decision to patient and Dr. Fuchs Patient is light perception right eye Discussed if removal of eye likely would recc evisceration with implant Discussed blind painful eye If can get pain under control can hold off on surgery If cannot get pain under control consider enucleation or evisceration, likely evisceration with implant Discussed post op course including significant pain for first 24-48 hrs, need to stay on top of thepain Also discussed patch x 1 week, return to clinic then remove patch In between eyelids will then look pink (like inside of mouth) and no eye. Then after 6-8 wks so swelling is reduced may go to truck and transport mechanic to get prosthesis made Patient could also see truck and transport mechanic prior to any surgery to get an idea of what it would look like (discusssed process is usually multiple days) While waiting for prosthesis some patients get a black patch or cover the side of the glasses Will likely look like a closed eyelid, usually wear conformer until prosthesis made Discussed risk of extrusion of implant (early or late), inability to retain prosthesis, prosthesis will not move completely like other eye (usually reduced movement), ptosis will likely stay after surgery (may be able to be addressed in future but may not be covered by insurance), discussed small risk of sympathetic ophthalmia (inflammation of fellow eye) after evisceration (patient has had previous eye surgeries in past) Patient understands May still have pain post operatively, but usually pain improved Possible plan: Right eye evisceration with implant Right medial and lateral temporary tarsorrhaphy Right medial permanent tarsorrhaphy General 1 hr + light perception right eye H/o polycythemia vera *discussed implant could get infected and come out either early or late --may have delayed healing 2/2 radiation *discussed patient has scarring may or may not be able to retain a prosthesis *h/o right conj malt lymphoma 2017, h/o radiation 2018 S/p corneal neurotization Avoid aspirin, ibuprofen, nsaids, vitamin e , fish oil 2 wks prior and 1 wk post Stop multivitamin, 2 wks prior and 1 wk post Stop aspirin 81 2 wks prior and 1 wk post if ok with medical doctor Can take arnica montana 5 day prior and 5 days post; bromelain as well for swelling Nothing to eat or drink 8 hrs prior to surgery except medicines day of with small sip of water Will need stud driver if having sedation surgery No working for 1 week after surgery. For surgery [facility], call The patient was offered a surgery/procedure at a [facility] facility. The surgeon/proceduralist and patient have discussed in detail the risk of exposure to and/or potential harm posed by the COVID-19 virus with having a surgery/procedure at this time versus the risk of delaying the surgery/pr ocedure. It is not possible to know either the risk of delaying the surgery or procedure or chance of getting an infection with perfect accuracy, but a joint decision was made between the patient andthe surgeon/proceduralist to proceed at this time with the scheduled surgery/procedure as indicatedon the consent form. An extensive discussion of the risks, benefits, alternatives of the above surgeries was conducted with the patient. The patient understood the risks including, but not limited to: bleeding, infection, scarring, asymmetry, need for future additional surgery, poor cosmesis, worsening dry eyes, orbital hemorrhage causing loss of vision, nerve damage, muscle damage, double vision, complications of anesthesia including loss of life. Discussed with patient these surgeries in most cases are performed with resident and/or fellow participation at the level deemed fit by Dr. Salazar. Patient verbalizes an understanding. The patient wished to proceed with surgery. Post operative course reviewed. 1-2 wks of bruising and swelling. Ice compresses (ie: frozen peas in Ziploc bag with cloth between bag and skin) for15 min every hourfor the first 3 days after surgery; then warm compresses as needed for bruising (from post op days 3-7) Avoid blood thinners including aspirin, Advil, Motrin, Aleve, vitamin E, fish oil at least 2 wks prior to surgery. Antibiotic ointment to eyes and incisions four times a day after surgery for 1 week. No heavy lifting over 15 lbs or any strenuous exercise for 1 wk after surgery. Walking is okay after surgery. 2. Right upper lid trichiasis Recc epilation today , may need more permanent solution in future Discussed options: Manual epilation (repeat every 8 weeks) vs Radiofrequency ablation (may need multiple treatments, but more permanent solution) Patient would like epilation today Right upper lid If need eyelid closure Right eyelid permanent tarsorrhaphy , possible multiple Possible right radiofrequency ablation of lashes or excision lash line with recession of lashes Mac 30 min Can take arnica montana 5 day prior and 5 days post; bromelain as well for swelling Nothing to eat or drink 8 hrs prior to surgery except medicines day of with small sip of water Will need stud driver if having sedation surgery No working for 1 week after surgery. For surgery [facility], call The patient was offered a surgery/procedure at a [facility] facility. The surgeon/proceduralist and patient have discussed in detail the risk of exposure to and/or potential harm posed by the COVID-19 virus with having a surgery/procedure at this time versus the risk of delaying the surgery/pr ocedure. It is not possible to know either the risk of delaying the surgery or procedure or chance of getting an infection with perfect accuracy, but a joint decision was made between the patient andthe surgeon/proceduralist to proceed at this time with the scheduled surgery/procedure as indicatedon the consent form. An extensive discussion of the risks, benefits, alternatives of the above surgeries was conducted with the patient. The patient understood the risks including, but not limited to: bleeding, infection, scarring, asymmetry, need for future additional surgery, poor cosmesis, worsening dry eyes, orbital hemorrhage causing loss of vision, nerve damage, muscle damage, double vision, complications of anesthesia including loss of life. Discussed with patient these surgeries in most cases are performed with resident and/or fellow participation at the level deemed fit by Dr. Salazar. Patient verbalizes an understanding. The patient wished to proceed with surgery. Post operative course reviewed. 1-2 wks of bruising and swelling. Ice compresses (ie: frozen peas in Ziploc bag with cloth between bag and skin) for15 min every hourfor the first 3 days after surgery; then warm compresses as needed for bruising (from post op days 3-7) Avoid blood thinners including aspirin, Advil, Motrin, Aleve, vitamin E, fish oil at least 2 wks prior to surgery. Antibiotic ointment to eyes and incisions four times a day after surgery for 1 week. No heavy lifting over 15 lbs or any strenuous exercise for 1 wk after surgery. Walking is okay after surgery. The documentation for this note was completed by Paula Sarmiento APRN, CNP acting as a scribe for Marta Salazar MD. 05/20/2024 12:01 PM. I have confirmed and edited as necessary the relevant HPI, ophthalmic history, ROS, and the neuro exam findings as obtained by others. I have seen and examined Mak Garces. I have discussed the case and the management of this patient's care with the Resident/Fellow, if applicable. I also have reviewed and agree with the assessment and plan as stated above and agree withall of its relevant components. I, Marta Salazar MD, personally performed the services described in this documentation. All medical record entries made by the scribe were at my direction and in my presence. I have reviewed the chart and discharge instructions (if applicable) and agree that the record reflects my personal performance and is accurate and complete. [facility] Telephone encounter Note * Telephone Encounter - Ruben Nieves - 06/24/2024 8:29 AM EST LV: 05/20/24 06/23/24 - Surgery FV: 07/01/24 (, Norma) Spoke with Norma this morning. She said she hadn't been contacted by anyone after surgery regardingthe outcome of the surgery etc. She would appreciate a call from someone to go over details. Patient reports a restful night but, is seeing floaters OS, which weren't there before surgery. Reported to Dr. Fuchs who said he would see him anytime this week. Marta Salazar MD filed at 05/20/2024 12:16 PM Status: Signed Leaking right eye starting on the way here. Eye was glued shut four days ago. No pain today. 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 Bryant S/p Penetrating keratoplasty in a phakic right eye using a 8.5 mm host and 9.0 mm donor trephination 09/12/2017 - Dr. Fuchs S/p Revision of operative wound, anterior segment right eye, Multilayered sutured amniotic membranegraft, Right eye, Temporary lateral tarsorhhaphy, Right eye - 10/10/2017 - Dr. Fuchs S/p LLL hpg/rotation 01/17/2018 - JDP S/p LLL hpg/rotation 10/10/2018 - JGRAHAM s/p right orbitotomy for supraorbital nerve anastamoses with axogen donor graft for corneal neurotization, Right conjunctivoplasty, Right temporary tarsorrhaphy, Right permanent medial tarsorrhaphy, Right lower eyelid debulking hard palate graft [facility] 06/10/20 S/p Penetrating keratoplasty in a phakic right eye using a 8.0 mm host and 8.5 mm donor trephination, Complex cataract extraction requiring mechanical dilation with iris hooks and capsular staining with trypan blue, right eye, Lysis of posterior iris synechiae, right eye, Anterior vitrectomy, righteye, Temporary tarsorrhaphy, right eye 05/23/21 - Dr. Fuchs S/p eyelid surgeries with Dr. Cool and Dr. Nolen Saw Dr. Nolen 05/14/24 05/16/[address] Dr[address] Fuchs: pt felt gush of fluid and pain, attempted to glue, referred for evisceration B scan 08/31/22: Date of Procedure 08/31/2022. Data Miner Information DENIA Galo, NATALIA 08/31/2022 10:58 AM . Notes B scan OD: 1) Interval resolution in the serous choroidal detachments 360-degrees. 2) Interval decrease in the density of the vitreous opacities. Today, opacities are mild through the lid. Exam: Light perception right eye - MD verified Right upper lid ptosis with trichiasis/Right upper lid entropion 2+ injection right eye No julieta kun positive area but thinned cornea inferior/centrally <0.1 cm , no glue seen Tenderness right eye (difficult to lift eyelid due to sensitivity) Right lateral permanent tarsorrhaphy in place Neovascularization right cornea Trichiasis Right upper lid Patient would like to try and save his right eye Would defer decision to patient and Dr. Fuchs Patient is light perception right eye Discussed if removal of eye likely would recc evisceration with implant Discussed blind painful eye If can get pain under control can hold off on surgery If cannot get pain under control consider enucleation or evisceration, likely evisceration with implant Discussed post op course including significant pain for first 24-48 hrs, need to stay on top of thepain Also discussed patch x 1 week, return to clinic then remove patch In between eyelids will then look pink (like inside of mouth) and no eye. Then after 6-8 wks so swelling is reduced may go to truck and transport mechanic to get prosthesis made Patient could also see truck and transport mechanic prior to any surgery to get an idea of what it would look like (discusssed process is usually multiple days) While waiting for prosthesis some patients get a black patch or cover the side of the glasses Will likely look like a closed eyelid, usually wear conformer until prosthesis made Discussed risk of extrusion of implant (early or late), inability to retain prosthesis, prosthesis will not move completely like other eye (usually reduced movement), ptosis will likely stay after surgery (may be able to be addressed in future but may not be covered by insurance), discussed small risk of sympathetic ophthalmia (inflammation of fellow eye) after evisceration (patient has had previous eye surgeries in past) Patient understands May still have pain post operatively, but usually pain improved Possible plan: Right eye evisceration with implant Right medial and lateral temporary tarsorrhaphy Right medial permanent tarsorrhaphy General 1 hr + light perception right eye H/o polycythemia vera *discussed implant could get infected and come out either early or late --may have delayed healing 2/2 radiation *discussed patient has scarring may or may not be able to retain a prosthesis *h/o right conj malt lymphoma 2017, h/o radiation 2018 S/p corneal neurotization Avoid aspirin, ibuprofen, nsaids, vitamin e , fish oil 2 wks prior and 1 wk post Stop multivitamin, 2 wks prior and 1 wk post Stop aspirin 81 2 wks prior and 1 wk post if ok with medical doctor Can take arnica montana 5 day prior and 5 days post; bromelain as well for swelling Nothing to eat or drink 8 hrs prior to surgery except medicines day of with small sip of water Will need stud driver if having sedation surgery No working for 1 week after surgery. For surgery [facility], call The patient was offered a surgery/procedure at a [facility] facility. The surgeon/proceduralist and patient have discussed in detail the risk of exposure to and/or potential harm posed by the COVID-19 virus with having a surgery/procedure at this time versus the risk of delaying the surgery/pr ocedure. It is not possible to know either the risk of delaying the surgery or procedure or chance of getting an infection with perfect accuracy, but a joint decision was made between the patient andthe surgeon/proceduralist to proceed at this time with the scheduled surgery/procedure as indicatedon the consent form. An extensive discussion of the risks, benefits, alternatives of the above surgeries was conducted with the patient. The patient understood the risks including, but not limited to: bleeding, infection, scarring, asymmetry, need for future additional surgery, poor cosmesis, worsening dry eyes, orbital hemorrhage causing loss of vision, nerve damage, muscle damage, double vision, complications of anesthesia including loss of life. Discussed with patient these surgeries in most cases are performed with resident and/or fellow participation at the level deemed fit by Dr. Salazar. Patient verbalizes an understanding. The patient wished to proceed with surgery. Post operative course reviewed. 1-2 wks of bruising and swelling. Ice compresses (ie: frozen peas in Ziploc bag with cloth between bag and skin) for15 min every hourfor the first 3 days after surgery; then warm compresses as needed for bruising (from post op days 3-7) Avoid blood thinners including aspirin, Advil, Motrin, Aleve, vitamin E, fish oil at least 2 wks prior to surgery. Antibiotic ointment to eyes and incisions four times a day after surgery for 1 week. No heavy lifting over 15 lbs or any strenuous exercise for 1 wk after surgery. Walking is okay after surgery. 2. Right upper lid trichiasis Recc epilation today , may need more permanent solution in future Discussed options: Manual epilation (repeat every 8 weeks) vs Radiofrequency ablation (may need multiple treatments, but more permanent solution) Patient would like epilation today Right upper lid If need eyelid closure Right eyelid permanent tarsorrhaphy , possible multiple Possible right radiofrequency ablation of lashes or excision lash line with recession of lashes Mac 30 min Can take arnica montana 5 day prior and 5 days post; bromelain as well for swelling Nothing to eat or drink 8 hrs prior to surgery except medicines day of with small sip of water Will need stud driver if having sedation surgery No working for 1 week after surgery. For surgery [facility], call The patient was offered a surgery/procedure at a [facility] facility. The surgeon/proceduralist and patient have discussed in detail the risk of exposure to and/or potential harm posed by the COVID-19 virus with having a surgery/procedure at this time versus the risk of delaying the surgery/pr ocedure. It is not possible to know either the risk of delaying the surgery or procedure or chance of getting an infection with perfect accuracy, but a joint decision was made between the patient andthe surgeon/proceduralist to proceed at this time with the scheduled surgery/procedure as indicatedon the consent form. An extensive discussion of the risks, benefits, alternatives of the above surgeries was conducted with the patient. The patient understood the risks including, but not limited to: bleeding, infection, scarring, asymmetry, need for future additional surgery, poor cosmesis, worsening dry eyes, orbital hemorrhage causing loss of vision, nerve damage, muscle damage, double vision, complications of anesthesia including loss of life. Discussed with patient these surgeries in most cases are performed with resident and/or fellow participation at the level deemed fit by Dr. Salazar. Patient verbalizes an understanding. The patient wished to proceed with surgery. Post operative course reviewed. 1-2 wks of bruising and swelling. Ice compresses (ie: frozen peas in Ziploc bag with cloth between bag and skin) for15 min every hourfor the first 3 days after surgery; then warm compresses as needed for bruising (from post op days 3-7) Avoid blood thinners including aspirin, Advil, Motrin, Aleve, vitamin E, fish oil at least 2 wks prior to surgery. Antibiotic ointment to eyes and incisions four times a day after surgery for 1 week. No heavy lifting over 15 lbs or any strenuous exercise for 1 wk after surgery. Walking is okay after surgery. The documentation for this note was completed by Paula Sarmiento APRN, CNP acting as a scribe for Marta Salazar MD. 05/20/2024 12:01 PM. I have confirmed and edited as necessary the relevant HPI, ophthalmic history, ROS, and the neuro exam findings as obtained by others. I have seen and examined Mak Garces. I have discussed the case and the management of this patient's care with the Resident/Fellow, if applicable. I also have reviewed and agree with the assessment and plan as stated above and agree withall of its relevant components. I, Marta Salazar MD, personally performed the services described in this documentation. All medical record entries made by the scribe were at my direction and in my presence. I have reviewed the chart and discharge instructions (if applicable) and agree that the record reflects my personal performance and is accurate and complete. [facility]02-24-2025 NoteHNO ID: [id number] Author: ADRIENNE GARCIA APRN.TRAVELING CONSTRUCTION SUPERINTENDENT Service: ? 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 Staffing TRAVELING CONSTRUCTION SUPERINTENDENT: Adrienne Garcia APRN.TRAVELING CONSTRUCTION SUPERINTENDENT Performed by: TRAVELING CONSTRUCTION SUPERINTENDENT Indications and Patient Condition Indications for airway management: anesthesia Preoxygenated: yes anesthesia circuit Patient position: sniffing Method: asleep Difficult Mask: No Final Airway Details Final airway type: supraglottic airway Number of attempts at approach: 1 Final Supraglottic Airway: LMA Flexible Size 5 Seal Adequate: yes Airway not difficult SIGNATURE: Adrienne Garcia APRN.CRNA PATIENT NAME: Mak Garces DATE: June 23, 2024 TIME: 2:20 PM CSN: [id number] NoteHNO ID: [id number] Author: YELENA PERERA RN Service: Nursing Author Type: Registered Nurse Type: Nursing Progress Note Filed: 06/23/2024 11:50 Note Text: Other: Dr Salazar paged AND notified patient needs HANDP with heart and lungs [facility]Wilson [facility]25 Telephone encounter Note* Telephone Encounter - Ruben Nieves - 06/23/2024 10:45 AM EST Ok to hold Aspirin. [facility]02-24-2025 Miscellaneous Notes* Telephone Encounter - Ruben Nieves - 06/23/2024 10:45 AM EST Ok to hold Aspirin. * Telephone Encounter - Ruben Nieves - 06/23/2024 8:39 AM EST LV: 06/18/24 FV: Patient's contacted the office reporting patient is in severe pain recommended that they make their way to the ER. They are on their way. Gabo Fuchs MD filed at 06/18/2024 10:07 AM Status: Signed Encounter Diagnosis ICD-10-CM 1. Perforated corneal ulcer of right eye H16.071 2. 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 CORNEAL EPITHELIAL DEBRIDEMENT (CULTURE/DIAGNOSTIC) OD (RIGHT EYE) BACTERIAL CULTURE, EYE FUNGAL CULTURE (NON DERMAL) REPAIR LACERATION;LUZ OF TISSUE GLUE/CORNEA AND/OR SCLERA OD (RIGHT EYE) 3. 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 current perforation of corneal ulcer OD in the setting of existing suprachoroidal hemorrhage causing severe pain some improvement with percocet temporarily patient eager to proceed with evisceration, understands that visual potential is already extremely limited and no clear pathway to improve vision based on severity of comorbidities and existing pathology emergent re-glue in office today to stabilize IOP and decrease pain, Bandage contact lens placed today OD Air Optix Aqua 13.8mm BC = 8.6 Prophylaxis with ceftaz cultures taken from central abrasion, unclear if concurrently infected or 2/2 previously dislodged glue will contact plastics to see if evisceration and be expedited based on severe pain I have confirmed and edited as necessary the relevant ophthalmic history, ROS, and the neuro exam findings as obtained by others. I have seen and examined this patient. I have discussed the case and the management of this patient's care with the Resident/Fellow, if applicable. I also have reviewed and agree with the assessment and plan as stated above and agree with all of its relevant components. Gabo Fuchs MD documented in this encounterSelect [facility] Telephone encounter Note * Telephone Encounter - Ruben Nieves - 06/23/2024 9:58 AM EST Images from the original note were not included. You Nohelia Shook MD; Gabo Fuchs MD; Mariam Roy MD; Meri Elizondo MD; Marta Salazar MD; Arti Euceda PA-C; Paula Sarmiento APRN.METER/RELAY CRAFTSMAN; Shaheen Mendosa PA-C;[facility] now (9:56 AM) TG Phone encounter was sent in separate communication. Spoke with this morning suggested they make their way into the ER since he was in so much pain. Nohelia Shook MD Goshe, Jeffrey M, MD2 days ago AE That would be great! I told him that we will do our best to get him in on Sunday. Gabo Fuchs MD Engelmann, Alexander, MD2 days ago Oh sorry that is lousy -- thank you for trying so hard to accommodate this patient. I know they arebeing super careful with the OR schedule but I am 99% sure I will be done very early on Sunday (like 1-2pm) so maybe they would consider letting it go my in my OR at [place] if that is easier for everyone. [facility]02-24-2025 Miscellaneous Notes* Telephone Encounter - Ruben Nieves - 06/23/2024 9:58 AM EST Images from the original note were not included. You Nohelia Shook MD; Gabo Fuchs MD; Mariam Roy MD; Meri Elizondo MD; Marta Salazar MD; Arti Euceda PA-C; Paula Sarmiento APRN.METER/RELAY CRAFTSMAN; Shaheen Mendosa PA-C;[facility] [place] now (9:56 AM) TG Phone encounter was sent in separate communication. Spoke with this morning suggested they make their way into the ER since he was in so much pain. Nohelia Shook MD Goshe, Jeffrey M, MD2 days ago AE That would be great! I told him that we will do our best to get him in on Sunday. Gabo Fuchs MD Engelmann, Alexander, MD2 days ago Oh sorry that is lousy -- thank you for trying so hard to accommodate this patient. I know they arebeing super careful with the OR schedule but I am 99% sure I will be done very early on Sunday (like 1-2pm) so maybe they would consider letting it go my in my OR at [place] if that is easier for everyone. * Telephone Encounter - Ruben Nieves - 06/20/2024 4:07 PM EST Images from the original note were not included. Gabo Fuchs MD You; Mariam Roy MD; Meri Elizondo MD; Marta Salazar MD; Arti Euceda PA-C; Paula Sarmiento APRN.METER/RELAY CRAFTSMAN; Shaheen Mendosa PA-C; Nohelia Shook MD;Marleen Head10 minutes ago (3:54 PM) I spoke with Mak just now -- evidently Beverly and or Ryder already reached out (thank you!) and ifAlex is willing to do the evisceration tomorrow he would gladly accept it. Thank you all - Gabo Mauricio MD You; Mariam Roy MD; Meri Elizondo MD; Marta Salazar MD; Arti Euceda PA-C; Paula Sarmiento APRN.METER/RELAY CRAFTSMAN; Shaheen Mendosa PA-C; Nohelia Shook MD;Marleen Head20 minutes ago (3:44 PM) Thank you for letting us know -- I am not sure whether our plastics service can offer anything sooner (they have definitely been very accommodating to move him up already so I don't know if they can offer anything more). I will call him now to see whether he needs to be admitted for pain control inthe interim. * Telephone Encounter - Ruben Nieves - 06/20/2024 2:01 PM EST Spoke with Norma, , reports patient is in total and utter agony due to pain. She feels that he won't make it to . He is laying in bed moaning from constant pain. Reports pain medication isn't helping.Is there anyway he can have an emergency surgery? is crying and so upset. * Telephone Encounter - Gabo Fuchs MD - 06/20/2024 1:42 PM EST Mariam, could you please prescribe him percocet 5/325 one pill q4hrs prn pain disp #20? I can't sendcontrolled substances until they enroll my new phone with [employer]. * Telephone Encounter - Vicenta Collier - 06/20/2024 1:22 PM EST Norma calling [phone] Patient's pain level is 30 Needs something stronger than than what you prescribed Gabo Fuchs MD filed at 06/18/2024 10:07 AM Status: Signed Encounter Diagnosis ICD-10-CM 1. Perforated corneal ulcer of right eye H16.071 2. 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 CORNEAL EPITHELIAL DEBRIDEMENT (CULTURE/DIAGNOSTIC) OD (RIGHT EYE) BACTERIAL CULTURE, EYE FUNGAL CULTURE (NON DERMAL) REPAIR LACERATION;LUZ OF TISSUE GLUE/CORNEA AND/OR SCLERA OD (RIGHT EYE) 3. 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 current perforation of corneal ulcer OD in the setting of existing suprachoroidal hemorrhage causing severe pain some improvement with percocet temporarily patient eager to proceed with evisceration, understands that visual potential is already extremely limited and no clear pathway to improve vision based on severity of comorbidities and existing pathology emergent re-glue in office today to stabilize IOP and decrease pain, Bandage contact lens placed today OD Air Optix Aqua 13.8mm BC = 8.6 Prophylaxis with ceftaz cultures taken from central abrasion, unclear if concurrently infected or 2/2 previously dislodged glue will contact plastics to see if evisceration and be expedited based on severe pain documented in this encounterSelect [facility] Telephone encounter Note * Telephone Encounter - Ruben Nieves - 06/23/2024 8:39 AM EST LV: 06/18/24 FV: Patient's contacted the office reporting patient is in severe pain recommended that they make their way to the ER. They are on their way. Gabo Fuchs MD filed at 06/18/2024 10:07 AM Status: Signed Encounter Diagnosis ICD-10-CM 1. Perforated corneal ulcer of right eye H16.071 2. 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 CORNEAL EPITHELIAL DEBRIDEMENT (CULTURE/DIAGNOSTIC) OD (RIGHT EYE) BACTERIAL CULTURE, EYE FUNGAL CULTURE (NON DERMAL) REPAIR LACERATION;LUZ OF TISSUE GLUE/CORNEA AND/OR SCLERA OD (RIGHT EYE) 3. 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 current perforation of corneal ulcer OD in the setting of existing suprachoroidal hemorrhage causing severe pain some improvement with percocet temporarily patient eager to proceed with evisceration, understands that visual potential is already extremely limited and no clear pathway to improve vision based on severity of comorbidities and existing pathology emergent re-glue in office today to stabilize IOP and decrease pain, Bandage contact lens placed today OD Air Optix Aqua 13.8mm BC = 8.6 Prophylaxis with ceftaz cultures taken from central abrasion, unclear if concurrently infected or 2/2 previously dislodged glue will contact plastics to see if evisceration and be expedited based on severe pain I have confirmed and edited as necessary the relevant ophthalmic history, ROS, and the neuro exam findings as obtained by others. I have seen and examined this patient. I have discussed the case and the management of this patient's care with the Resident/Fellow, if applicable. I also have reviewed and agree with the assessment and plan as stated above and agree with all of its relevant components. Gabo Fuchs MD [facility]02-22-2025 NoteHNO ID: [id number] Author: NOHELIA SHOOK MD Service: ? Author Type: Fellow Type: Progress Notes Filed: 06/21/2024 10:38 Note Text: Spoke with patient?s spouse regarding plan for urgent evisceration for treatment of blind, painful eye. She is concerned that he is still NPO and his surgery may not happen until later today (currently on schedule for 8 PM), as we must rely on anesthesia staffing to take his case and there are many urgent inpatient cases today. She wonders if Dr. Salazar will be able to do his surgery on Sunday, as we previously discussed yesterday and she would prefer to do this if possible. I assured her that we will do our very best to accommodate the patient this coming Sunday as an add-on case. Will cancel case request for today and plan evisceration for 06/23/24.[facility]02-22-2025 History of Present illness Narrative* Nohelia Shook MD - 06/21/2024 10:30 AM EST Spoke with patient s spouse regarding plan for urgent evisceration for treatment of blind, painful eye. She is concerned that he is still NPO and his surgery may not happen until later today (currently on schedule for 8 PM), as we must rely on anesthesia staffing to take his case and there are manyurgent inpatient cases today. She wonders if Dr. Salazar will be able to do his surgery on Sunday, as we previously discussed yesterday and she would prefer to do this if possible. I assured her that we will do our very best to accommodate the patient this coming Sunday as an add-on case. Will cancel case request for today and plan evisceration for 06/23/24. documented in this encounterSelect [facility]25 Telephone encounter Note * Telephone Encounter - Nohelia Shook MD - 06/20/2024 5:19 PM EST Patient referred by alma Ibanez, for consideration of evisceration of blind painful right eye. Patient requested to have surgery sooner than previously scheduled. Scheduled for 06/26/24. Spoke with patient and spouse via phone. Patient is unable to tolerate constant pain despite treatment withopioid pain medication. He requests that his surgery be done this weekend. He understands the finality of this procedure, stating I have been dealing with this eye for 8 years now, we have tried everything but this is the only option now . Plan: Evisceration of ocular contents with placement of orbital implant and temporary tarsorrhaphy, righteye General anesthesia 90 min Will coordinate for surgery tomorrow, 06/20/24 NPO after midnight Take pain medication and levothyroxine in AM The patient was offered a surgery/procedure at a [facility]. An extensive discussionof the risks, benefits, alternatives of the above surgeries was conducted with the patient. The patient understood the risks including, but not limited to: bleeding, infection, scarring, asymmetry, need for future additional surgery, poor cosmesis, worsening dry eyes, orbital hemorrhage, nerve damage, muscle damage, complications of anesthesia including loss of life. Patient verbalizes an understanding. The patient wished to proceed with surgery. Post operative course: 1-2 wks of bruising and swelling. Ice compresses (ie: frozen peas in Ziploc bag with cloth between bag and skin) for15 min every hourfor the first 3 days after surgery; then warm compresses as needed for bruising (from post op days 3-7). Can take arnica montana 5 day prior and 5 days post; bromelain as well for swelling Avoid blood thinners including aspirin, Advil, Motrin, Aleve, vitamin E, fish oil at least 2 wks prior to surgery. Antibiotic ointment to eyes and incisions four times a day after surgery for 1 week. No heavy lifting over 15 lbs or any strenuous exercise for 1 wk after surgery. Walking is okay after surgery. Nohelia Shook MD [facility], Oculofacial Plastic Surgery Fellow [facility]02-21-2025 Miscellaneous Notes* Telephone Encounter - Nohelia Shook MD - 06/20/2024 5:19 PM EST Patient referred by Dr. Fuchs, alma, for consideration of evisceration of blind painful right eye. Patient requested to have surgery sooner than previously scheduled. Scheduled for 06/26/24. Spoke with patient and spouse via phone. Patient is unable to tolerate constant pain despite treatment withopioid pain medication. He requests that his surgery be done this weekend. He understands the finality of this procedure, stating I have been dealing with this eye for 8 years now, we have tried everything but this is the only option now . Plan: Evisceration of ocular contents with placement of orbital implant and temporary tarsorrhaphy, righteye General anesthesia 90 min Will coordinate for surgery tomorrow, 06/20/24 NPO after midnight Take pain medication and levothyroxine in AM The patient was offered a surgery/procedure at a [facility]. An extensive discussionof the risks, benefits, alternatives of the above surgeries was conducted with the patient. The patient understood the risks including, but not limited to: bleeding, infection, scarring, asymmetry, need for future additional surgery, poor cosmesis, worsening dry eyes, orbital hemorrhage, nerve damage, muscle damage, complications of anesthesia including loss of life. Patient verbalizes an understanding. The patient wished to proceed with surgery. Post operative course: 1-2 wks of bruising and swelling. Ice compresses (ie: frozen peas in Ziploc bag with cloth between bag and skin) for15 min every hourfor the first 3 days after surgery; then warm compresses as needed for bruising (from post op days 3-7). Can take arnica [place] 5 day prior and 5 days post; bromelain as well for swelling Avoid blood thinners including aspirin, Advil, Motrin, Aleve, vitamin E, fish oil at least 2 wks prior to surgery. Antibiotic ointment to eyes and incisions four times a day after surgery for 1 week. No heavy lifting over 15 lbs or any strenuous exercise for 1 wk after surgery. Walking is okay after surgery. Nohelia Shook MD [facility], Oculofacial Plastic Surgery Fellow documented in this encounterSelect [facility] Telephone encounter Note * Telephone Encounter - Ruben Nieves - 06/20/2024 4:07 PM EST Images from the original note were not included. Gabo Fuchs MD You; Mariam Roy MD; Meri Elizondo MD; Marta Salazar MD; Arti Euceda PA-C; Paula Sarmiento APRN.METER/RELAY CRAFTSMAN; Shaheen Mendosa PA-C; Nohelia Shook MD;Marleen Head10 minutes ago (3:54 PM) I spoke with Mak just now -- evidently Beverly and or Ryder already reached out (thank you!) and Michael is willing to do the evisceration tomorrow he would gladly accept it. Thank you all - Gabo Mauricio MD You; Mariam Roy MD; Meri Elizondo MD; Marta Salazar MD; Arti Euceda PA-C; Paula Sarmiento APRN.METER/RELAY CRAFTSMAN; Shaheen Mendosa PA-C; Nohelia Shook MD;Marleen Head20 minutes ago (3:44 PM) Thank you for letting us know -- I am not sure whether our plastics service can offer anything sooner (they have definitely been very accommodating to move him up already so I don't know if they can offer anything more). I will call him now to see whether he needs to be admitted for pain control inthe interim. [facility]02-21-2025 Telephone encounter Note* Telephone Encounter - Ruben Nieves - 06/20/2024 2:01 PM EST Spoke with Norma, , reports patient is in total and utter agony due to pain. She feels that he won't make it to . He is laying in bed moaning from constant pain. Reports pain medication isn't helping.Is there anyway he can have an emergency surgery? is crying and so upset. [facility]02-21-2025 Telephone encounter Note* Telephone Encounter - Gabo Fuchs MD - 06/20/2024 1:42 PM EST Sheel, could you please prescribe him percocet 5/325 one pill q4hrs prn pain disp #20? I can't sendcontrolled substances until they enroll my new phone with [employer]. [facility]02-21-2025 Telephone encounter Note* Telephone Encounter - [employer] - 06/20/2024 1:22 PM EST Norma calling [phone] Patient's pain level is 30 Needs something stronger than than what you prescribed Gabo Fuchs MD filed at 06/18/2024 10:07 AM Status: Signed Encounter Diagnosis ICD-10-CM 1. Perforated corneal ulcer of right eye H16.071 2. 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 CORNEAL EPITHELIAL DEBRIDEMENT (CULTURE/DIAGNOSTIC) OD (RIGHT EYE) BACTERIAL CULTURE, EYE FUNGAL CULTURE (NON DERMAL) REPAIR LACERATION;LUZ OF TISSUE GLUE/CORNEA AND/OR SCLERA OD (RIGHT EYE) 3. 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 current perforation of corneal ulcer OD in the setting of existing suprachoroidal hemorrhage causing severe pain some improvement with percocet temporarily patient eager to proceed with evisceration, understands that visual potential is already extremely limited and no clear pathway to improve vision based on severity of comorbidities and existing pathology emergent re-glue in office today to stabilize IOP and decrease pain, Bandage contact lens placed today OD Air Optix Aqua 13.8mm BC = 8.6 Prophylaxis with ceftaz cultures taken from central abrasion, unclear if concurrently infected or 2/2 previously dislodged glue will contact plastics to see if evisceration and be expedited based on severe pain [facility] Work Phone: 1(301) 193-654902-19-2025 NoteHNO ID: [id number] Author: GABO FUCHS MD Service: ? Author Type: Physician Type: Progress Notes Filed: 06/18/2024 10:07 Note Text: Encounter Diagnosis ICD-10-CM 1. Perforated corneal ulcer of right eye H16.071 2. 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 CORNEAL EPITHELIAL DEBRIDEMENT (CULTURE/DIAGNOSTIC) OD (RIGHT EYE) BACTERIAL CULTURE, EYE FUNGAL CULTURE (NON DERMAL) REPAIR LACERATION;LUZ OF TISSUE GLUE/CORNEA AND/OR SCLERA OD (RIGHT EYE) 3. 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 current perforation of corneal ulcer OD in the setting of existing suprachoroidal hemorrhage causing severe pain some improvement with percocet temporarily patient eager to proceed with evisceration, understands that visual potential is already extremely limited and no clear pathway to improve vision based on severity of comorbidities and existing pathology emergent re-glue in office today to stabilize IOP and decrease pain, Bandage contact lens placed today OD Air Optix Aqua 13.8mm BC = 8.6 Prophylaxis with ceftaz cultures taken from central abrasion, unclear if concurrently infected or 2/2 previously dislodged glue will contact plastics to see if evisceration and be expedited based on severe pain I have confirmed and edited as necessary the relevant ophthalmic history, ROS, and the neuro exam findings as obtained by others. I have seen and examined this patient. I have discussed the case and the management of this patient's care with the Resident/Fellow, if applicable. I also have reviewed and agree with the assessment and plan as stated above and agree with all of its relevant components. Gabo Fuchs, [facility]02-19-2025 History of Present illness Narrative* Gabo Fuchs MD - 06/18/2024 10:02 AM EST Encounter Diagnosis ICD-10-CM 1. Perforated corneal ulcer of right eye H16.071 2. 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 CORNEAL EPITHELIAL DEBRIDEMENT (CULTURE/DIAGNOSTIC) OD (RIGHT EYE) BACTERIAL CULTURE, EYE FUNGAL CULTURE (NON DERMAL) REPAIR LACERATION;LUZ OF TISSUE GLUE/CORNEA AND/OR SCLERA OD (RIGHT EYE) 3. 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 current perforation of corneal ulcer OD in the setting of existing suprachoroidal hemorrhage causing severe pain some improvement with percocet temporarily patient eager to proceed with evisceration, understands that visual potential is already extremely limited and no clear pathway to improve vision based on severity of comorbidities and existing pathology emergent re-glue in office today to stabilize IOP and decrease pain, Bandage contact lens placed today OD Air Optix Aqua 13.8mm BC = 8.6 Prophylaxis with ceftaz cultures taken from central abrasion, unclear if concurrently infected or 2/2 previously dislodged glue will contact plastics to see if evisceration and be expedited based on severe pain I have confirmed and edited as necessary the relevant ophthalmic history, ROS, and the neuro exam findings as obtained by others. I have seen and examined this patient. I have discussed the case and the management of this patient's care with the Resident/Fellow, if applicable. I also have reviewed and agree with the assessment and plan as stated above and agree with all of its relevant components. Gabo Fuchs MD documented in this encounterSelect Medical [facility]-2025 NoteDate of Procedure 06/17/2024 [place] Protocol Safety Checklist Sign In: A moment to CARE completed, Special equipment verified, Appropriate PPE verified, Patient name, date of , allergies and intended procedure verified. Provider Confirms: Correct side/site marked visible. Relevant labs, photos, and/or imaging studies have been reviewed. Medications required for procedure verified. Fire risk assessed and interventions discussed. Correct implant confirmed and expiration reviewed. Anesthesia Proparacaine drops 0.5%. Pre-procedure Medication 1 drop Gentamicin ophthalmic solution. Post-procedure Medication 1 drop Gentamicin ophthalmic solution. Bandage Contact Lens Extended wear soft contact lens. Sign Out Sign out discussion completed, All instruments, equipment, and/or possible retained foreign bodies accounted for, Post-procedure follow up management communicated. No specimens.[facility] History of Present illness Narrative* Xavi Wang MD - 06/18/2024 9:50 AM EST Images from the original note were not included. Follow up Diagnosis: Basal Cell Carcinoma Location: Left forearm Last visit: 05/20/2024 Procedure performed: Shave biopsy Current treatment: Here today for ED&C Lesions: Location: Left forearm, adjacent to biopsy site Duration: Noticed it after the biopsy was done Quality: denies pain, denies itch Associated symptoms: crusted Treatments: None All pertinent medical history, medications, and allergies were reviewed. General Exam: alert, oriented to person, place, and time, normal affect, well appearing Unaccompanied A focused exam completed based on patient reported problems, see below: 1. Basal cell carcinoma of skin of left upper limb, including shoulder Left Forearm - Posterior Hemorrhagic crust at the biopsy site Destruction of lesion Complexity: simple Destruction method: cryotherapy Informed consent: discussed and consent obtained Informed consent comment: The risks of the procedure were discussed, including, but not limited to risks of scarring, darker or rn house supervisor pigmentary changes, recurrence, infection, and incomplete removal Timeout: patient name, date of , surgical site, and procedure verified Timeout comment: Patient and provider identified site. Site was marked. Photo was taken and shown to patient, patient verified this is the correct site. Lesion destroyed using liquid nitrogen: Yes Region frozen until ice ball extended beyond lesion: Yes Cryotherapy cycles: 2 Lesion length (cm): 1.2 Lesion width (cm): 0.7 Margin per side (cm): 0 Final wound size (cm): 1.2 Outcome: patient tolerated procedure well with no complications Post-procedure details: wound care instructions given Post-procedure details comment: Post-cryotherapy instructions were given verbally and in writing. The office will be contacted if the lesion fails to resolve despite treatment, or if a side effect develops such as abnormal crusting, scabbing, reddness, discharge, or tenderness. Additional details: Previous accession number: [id number] Discussed treatment options including ED&C vs aggressive cryotherapy, recommend aggressive cryotherapy today given skin in the area is too fragile for ED&C. Patient instructed to notify office of any signs of recurrence prior to next scheduled visit. 2. Actinic keratosis Left Forearm - Posterior Erythematous scaly papule Patient was counseled regarding these sun-induced growths that can develop into squamous cell carcinoma if left untreated. Discussed treatment with cryotherapy. It was emphasized that any treated lesions that fail to resolve should be re- evaluated. Cryotherapy performed today; see procedure note Diagnosis: Actinic keratosis Indication: Precancerous Location: see skin exam Consent: Verbal consent was obtained and risks were discussed, including, but not limited to risks of scarring, darker or rn house supervisor pigmentary changes, recurrence, incomplete removal and infection. Method: Liquid nitrogen was used to treat the lesion(s) with two 5-10 second freeze-thaw cycles. Number of lesions treated: 1 Post-procedure instructions: Instructions were given verbally. The office will be contacted if the lesion fails to resolve despite treatment, or if a side effect develops such as abnormal crusting, scabbing, redness or tenderness Cryotherapy, skin lesion - Left Forearm - Posterior Related Medications fluorouracil (Efudex) 5 % cream Apply to directed areas on scalp, forehead, cheeks, and ears bid x 14 days Next Visit: 08/04/2024, skin check documented in this encounterFreeman Orthopaedics & Sports [id number] History of Present illness Narrative* Romulo Clark, DO - 06/18/2024 9:00 AM EST Images from the original note were not included. Mak Garces is a 68 y.o. male presents with chief complaint of Chief Complaint Patient presents with Hospital Follow-up Mak was seen today for hospital follow-up. Diagnoses and all orders for this visit: Primary hypertension (CMS/HCC) Other specified types of non-hodgkin lymphoma, unspecified site (CMS/HCC) Obesity (BMI 30-39.9) Extranodal lymphoma (CMS/HCC) Polycythemia vera (CMS/HCC) Malignant melanoma of neck (CMS/HCC) Obstructive sleep apnea Hyponatremia Acquired hypothyroidism (CMS/HCC) Syncope, unspecified syncope type Chest pain, unspecified type Assessment & Plan Syncope. At the conclusion of today's visit, reviewed with patient recent ER visit along with past work-up for his syncopal episodes. He has had labile blood pressure over the last year. 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 Also has been undergoing treatments for polycythemia vera. Past echo, MRI of the brain and Holter monitor were unremarkable. With the symptoms of syncope, weakness, and some chest pain, a stress test will beobtained. At the conclusion of today's visit, all questions were addressed. If stress test is negative, I would recommend event monitor. Melanoma. 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 Polycythemia vera. He has been undergoing treatments for polycythemia vera. ROMULO CLARK D.O. This note was entered using [employer]. Grammatical and dictation errors maybe present in translation *I have reviewed and reconciled the history and medication list with the patient today* History of Present Illness The patient is a 68-year-old male who presents with syncope. He reports an episode of lightheadedness and near-fainting, which he attributes to his fluctuating blood pressure. This incident occurred without any preceding pain or discomfort. He recalls that theepisode happened after he had showered and was preparing to leave for a doctor's appointment. He managed to sit down before ascending the stairs and subsequently lay on the floor. His blood pressure readings were within normal limits this morning. He has been dealing with melanoma for 7 years, which has not healed, and the doctor has recommendedremoval. He had a melanoma removed from his nose and is scheduled to have another one removed in 2 weeks at the main campus. He also had a spot removed from his back and used a cream for 2 weeks, which cleared up all the spots except for one. He is seeking another opinion on this. Supplemental Information His legs have been doing fine as long as he wears compression socks. MEDICATIONS Discontinued: Joy Patient has had multiple near syncopal events over the last several months. Occurring more frequently, has occurred 3 times within the last week. Describes as feeling a warm flushed feeling and lightheaded. At each event he needs to lay down on the ground with feet elevated for 10-15 minutes beforefeeling well enough to sit back up. Yesterday symptoms lasted longer and son had to be called to help patient up off the floor and out to the car. [place] [facility] fo head, labs, EKG, chest xray and was discharged and advised to follow up with PCP. Has had ongoing eye issues and feels these events are related to pain from this. SUBJECTIVE: Current Medications: Allergies/Social History: Depression Screen/Family History: Current Outpatient Medications on File Prior to Visit Medication Sig Dispense Refill ascorbic acid (Vitamin C) 500 MG tablet Take 500 mg by mouth in the morning. aspirin 81 MG EC tablet 1 (one) time each day at the same time. carboxymethylcellulose (Refresh Plus) 0.5 % ophthalmic solution 1 drop. fluticasone (Flonase) 50 MCG/ACT nasal spray Administer 2 sprays into each nostril Daily 16 g 4 Hydrea 500 MG capsule 500 mg in the morning and 500 mg before bedtime. levocetirizine (Xyzal) 5 MG tablet Take 1 tablet (5 mg) by mouth in the evening 90 tablet 3 linezolid (Zyvox) 100 MG/5ML suspension 0.2% 2 drops ophtho x daily Synthroid 150 MCG tablet Take 1 tablet (150 mcg) by mouth Daily 90 tablet 1 tamsulosin (Flomax) 0.4 MG 24 hr capsule Take 1 capsule (0.4 mg) by mouth at bedtime 90 capsule 3 [DISCONTINUED] Carboxymethylcellulose Sodium (EYE DROPS OP) Administer into affected eye(s) Ceftazidine 5%-eye drops 2x daily [DISCONTINUED] fluorouracil (Efudex) 5 % cream Apply to directed areas on scalp, forehead, cheeks, and ears bid x 14 days 40 g 0 No current facility-administered medications on file prior to visit. Allergies Allergen Reactions Liv Inhibitors Cough Social History Tobacco Use Smoking status: Never Smokeless tobacco: Never Vaping Use Vaping status: Never Used Substance Use Topics Alcohol use: Never Comment: caffeine 2-3 cups per day, soda Depression: Not at risk (06/18/2024) PHQ-2 PHQ-2 Score: 0 Family History Problem Relation Name Age of Onset Thyroid disease Mother Diverticulitis Mother Other (hyponatremia) Mother Hypertension Mother Other (tawanna's granulomatosis) Father Thyroid disease Brother Past Medical History: Surgical History: ROS Past Medical History: Diagnosis Date Basal cell carcinoma 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 05/11/2022 Concussion Corneal scar, right eye 04/05/2021 Diverticulosis Generalized osteoarthritis Hypertension (CMS/HCC) Hypothyroid (CMS/HCC) Iron deficiency Leukocytosis 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/2017 Added automatically from request for surgery [id number] 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 Melanoma ([facility]/HCC) 05/20/2024 Left posterior neck Melanoma ([facility]/HCC) 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 Added automatically from request for surgery [id number] MATT (obstructive sleep apnea) Polycythemia vera (CMS/HCC) Primary lymphoma of conjunctiva (CMS/HCC) Pterygium Pure hypercholesterolemia (CMS/HCC) Radiation dermatitis 07/03/2017 Rheumatoid arthritis (CMS/[facility]) Sleep apnea, obstructive 12/07/2022 Past Surgical History: Procedure Laterality Date BASIC RADIATION DOSE CALCULATION 06/29/2017 conjunctival lymphoma BIOPSY SKIN / SQ / MUCOUS MEMBRANE 05/2017 conjunctival lymphoma CHOLECYSTECTOMY 04/25/2012 COLONOSCOPY 2015 EYE SURGERY 2018 x8-cornea transplants, nerve surgeries EYE SURGERY [id number] SKIN CANCER EXCISION 05/31/2023 basal cell removed from nose Review of Systems Constitutional: Positive for fatigue. HENT: Negative for rhinorrhea. Respiratory: Negative for cough and shortness of breath. Cardiovascular: Negative for chest pain. Gastrointestinal: Negative for abdominal distention. Skin: Negative for rash. Neurological: Positive for syncope and light-headedness. Negative for dizziness. All other systems reviewed and are negative. OBJECTIVE: 06/18/2024 9:16 AM 12/10/2023 3:13 PM 07/19/2023 2:41 PM 12/07/2022 4:04 PM 09/27/2021 12:00 PM 11/28/2017 12:00 PM 05/28/2017 12:00 PM Vitals BMI 34.02 kg/m2 34.41 kg/m2 34.92 kg/m2 34.28 kg/m2 34.79 kg/m2 35.05 kg/m2 36.08 kg/m2 BSA (m2) 2.5 m2 2.52 m2 2.53 m2 2.51 m2 2.53 m2 2.54 m2 2.58 m2 Systolic 134 128 136 122 126 108 112 Diastolic 88 86 86 84 84 78 74 Heart Rate 60 80 72 65 SpO2 98 % 98 % 98 % 99 % Temp 98 F 98.9 F 98.1 F 98 F Height (in) 6' 2 6' 2 6' 2 6' 2 6' 2 6' 2 6' 2 Weight (lb) 265 268 272 267 271 273 281 Visit Report Report Report Report Report GENERAL EXAM: Physical Exam General Appearance: Alert and oriented. Pleasant affect. No acute distress. Well nourished. Head: Atraumatic normal cephalic. No masses or tenderness. Eyes: right eye atrophy Ears: External ears normal. No signs or trauma or infection. Nose: Nasal mucosal pink and moist, No discharge or congestion. Normal appearance of soft tissue ofnose. Throat: Lips moist, Teeth and gums in good condition. No exudate or drainage. Neck: Supple, normal rom of neck, no swelling or pain on palpitation. Respiratory: Clear to auscultation bilaterally, no wheezes, rhonchi or crackles. Good breaths sounds throughout lung potter. Cardiovascular: Regular rate and rhythm, 2 out of 6 systolic murmur at the right upper sternal border. Normal S1, S2. Back, Musculoskeletal: No gross deformities or malalignment, normal ambulation. Extremities: No swelling, no deformity or acute findings. Skin: Warm and dry, no rashes. Neurological: Cranial nerves II-VII grossly intact, no gross neurologic abnormalities. Psychiatric: Cooperative, pleasant, no signs of mood disorder. documented in this encounterFreeman Orthopaedics & Sports [id number] NoteDate of Procedure 06/17/2024 [place] Protocol Safety Checklist Sign In: Patient name, date of , allergies and intended procedure verified. Provider Confirms: Correct side/site marked visible. No relevant labs, photos, and/or imaging studies to review. No medications required for procedure. No fire risk. No implants. Anesthesia 1-2 drops Topical 0.5% Proparacaine. Instrument Used Sterile spatula. Post-procedure Medication None. Home Going Prescription Patient has drops at home. Sign Out Sign out discussion completed, All instruments, equipment, and/or possible retained foreign bodies accounted for, Post-procedure follow up management communicated. Specimen containers correctly labeled.[facility]02-18-2025 Radiology Diagnostic study [facility] [address] [place] [address] CT Scan Report Signed Patient: Mak Garces MR#: [id number] : 1955 Acct:[id number] Age/Sex: 68 / M ADM Date: 5 Loc: ER Room: Type: [facility] ER Attending Dr: Copies to: Wesley Newell DO~ Ordering Provider: Wesley Newell DO Date of Service: 06/17/24 CT/CT head/brain wo con: lightheaded CT BRAIN WITHOUT CONTRAST: CLINICAL HISTORY: Lightheadedness, chills COMPARISON: None TECHNIQUE: Contiguous axial unenhanced images were obtained through the brain. This CT exam was performed using one or more following dose reduction techniques: Automated exposure control, adjustmentof the mA and/or kV accordingto patient size, or use of iterative reconstruction technique. FINDINGS: There is no evidence of midline shift, intra or extra-axial fluid collection, hemorrhage or CT evidence of large vascular distribution stroke. Mild central involutional changes and chronic small vessel ischemic disease. Cataract surgery. Visualized paranasal sinuses are clear. The surrounding soft tissues are normal. CT/CT head/brain wo con IMPRESSION: NO ACUTE INTRACRANIAL ABNORMALITY. CHRONIC SMALL VESSEL CHANGES. Impression dictated by: Niels Osborne M.D.06/17/2024 10:09 AM Dictation Location: [facility]-- Transcribed By: [facility] 06/17/24 100 Dictated By: Niels Osborne MD 06/17/241004 Signed By: 06/17/24 1009 [facility] Work Phone: [phone] Telephone encounter Note* Telephone Encounter - Eloise Brooks MD - 06/16/2024 8:54 PM EST Received page that patient had called regarding a medication concern The patient is otherwise doing well Patient is inquiring about a refill on percocet. Reviewed their preferred pharmacy and confirmed the medication had already been sent to that location this evening just after they had called in earlier. Asked patient to call back if they still haveany issues obtaining the medication. Call back and ED precautions reviewed. All further questions answered. Eloise Brooks MD [facility] Work Phone: [phone] Miscellaneous Notes* Telephone Encounter - Eloise Brooks MD - 06/16/2024 8:54 PM EST Received page that patient had called regarding a medication concern The patient is otherwise doing well Patient is inquiring about a refill on percocet. Reviewed their preferred pharmacy and confirmed the medication had already been sent to that location this evening just after they had called in earlier. Asked patient to call back if they still haveany issues obtaining the medication. Call back and ED precautions reviewed. All further questions answered. Eloise Brooks MD documented in this encounterSelect Medical [facility] Telephone encounter Note * Telephone Encounter - Imani Moses - 06/16/2024 4:44 PM EST Patient needed the listed medication to go to the updated pharmacy. Original was sent to mail orderservice, and they will not transfer the script. Patient can be contacted at the following number, . Patient's request for medication is as follows: Requested Prescriptions Pending Prescriptions Disp Refills oxyCODONE-acetaminophen (PERCOCET) 5-325 mg tablet 6 tablet 0 Si tablet every 6 hours as needed for pain Prescription(s) as above. Please process accordingly. Imani Moses FV: 06/16/2024 (Karlos) LV: 06/13/2024 Meri Elizondo MD filed at 06/13/2024 3:08 PM Status: Signed Urgent visit. 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 - Seen 05/16/[address] Roy - had perforated cornea with collapsed globe, glued - Seen 05/20/[address] Salazar for evisceration eval given repeated failed grafts and perforations - patient elects to try for possible PKP OD - Seen 05/22/[address] Fuchs: - Reports significant pain that started yesterday, trouble sleeping. Exam today with reformed globe, area of perforation appears sealed, but very thin - New hemorrhagic choroidal detachment, cornea closed but increasing pain secondary to choroidal - Long discussion regarding options including evisceration versus protecting eye to stabilize - Based on epithelial recovery after epilation of lashes, still has reasonable epithelial reserve but needs to have permanent near-total tarsorrhaphy - Discussed that choroidal hemorrhage may lead to retinal detachment that may lead to phthisis without further surgery - Bandage contact lens placed 05/22/24 OD Urgent visit today 06/10/24: - Noticed leak yesterday from right eye and then developed pain today - BCL gently removed at slit lamp, area of perforation appears sealed but very thin, kun negative - Re-glued today, very difficult gluing given significant eyelid tenderness, small palpebral opening, unable to place speculum - Appears to have good effect right now. 30 min post glue application patient is kun neg and in less pain. - Despite multiple attempts due to eyelid tenderness unable to place BCL - Of note, during conversation today he states that after he treats his skin cancers in about 1 month he may be more interested in the evisceration Follow up today because of pain and irritation OD: - Stable exam with thin area but kun negative - Piece of glue found and removed - Trichiatic lashes abutting on the cornea removed - BCL placed (bioinfinity) We will call him back for a follow up appointment after discussing with Dr. Karlos Domingo MD [facility]02-17-2025 Miscellaneous Notes* Telephone Encounter - Imani Moses - 06/16/2024 4:44 PM EST Patient needed the listed medication to go to the updated pharmacy. Original was sent to mail orderservice, and they will not transfer the script. Patient can be contacted at the following number, . Patient's request for medication is as follows: Requested Prescriptions Pending Prescriptions Disp Refills oxyCODONE-acetaminophen (PERCOCET) 5-325 mg tablet 6 tablet 0 Si tablet every 6 hours as needed for pain Prescription(s) as above. Please process accordingly. Imani Moses FV: 06/16/2024 (Karlos) LV: 06/13/2024 Meri Elizondo MD filed at 06/13/2024 3:08 PM Status: Signed Urgent visit. 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 - Seen 05/16/[address] Roy - had perforated cornea with collapsed globe, glued - Seen 05/20/[address] Salazar for evisceration eval given repeated failed grafts and perforations - patient elects to try for possible PKP OD - Seen 05/22/[address] Fuchs: - Reports significant pain that started yesterday, trouble sleeping. Exam today with reformed globe, area of perforation appears sealed, but very thin - New hemorrhagic choroidal detachment, cornea closed but increasing pain secondary to choroidal - Long discussion regarding options including evisceration versus protecting eye to stabilize - Based on epithelial recovery after epilation of lashes, still has reasonable epithelial reserve but needs to have permanent near-total tarsorrhaphy - Discussed that choroidal hemorrhage may lead to retinal detachment that may lead to phthisis without further surgery - Bandage contact lens placed 05/22/24 OD Urgent visit today 06/10/24: - Noticed leak yesterday from right eye and then developed pain today - BCL gently removed at slit lamp, area of perforation appears sealed but very thin, kun negative - Re-glued today, very difficult gluing given significant eyelid tenderness, small palpebral opening, unable to place speculum - Appears to have good effect right now. 30 min post glue application patient is kun neg and in less pain. - Despite multiple attempts due to eyelid tenderness unable to place BCL - Of note, during conversation today he states that after he treats his skin cancers in about 1 month he may be more interested in the evisceration Follow up today because of pain and irritation OD: - Stable exam with thin area but kun negative - Piece of glue found and removed - Trichiatic lashes abutting on the cornea removed - BCL placed (bioinfinity) We will call him back for a follow up appointment after discussing with Dr. Karlos Domingo MD documented in this encounterSelect [facility] NoteHNO ID: [id number] Author: MERI ELIZONDO MD Service: ? Author Type: Fellow Type: Progress Notes Filed: 06/13/2024 15:08 Note Text: Urgent visit. 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 - Seen 05/16/[address] Roy - had perforated cornea with collapsed globe, glued - Seen 05/20/[address] Salazar for evisceration eval given repeated failed grafts and perforations - patient elects to try for possible PKP OD - Seen 05/22/[address] Fuchs: - Reports significant pain that started yesterday, trouble sleeping. Exam today with reformed globe, area of perforation appears sealed, but very thin - New hemorrhagic choroidal detachment, cornea closed but increasing pain secondary to choroidal - Long discussion regarding options including evisceration versus protecting eye to stabilize - Based on epithelial recovery after epilation of lashes, still has reasonable epithelial reserve but needs to have permanent near-total tarsorrhaphy - Discussed that choroidal hemorrhage may lead to retinal detachment that may lead to phthisis without further surgery - Bandage contact lens placed 05/22/24 OD Urgent visit today 06/10/24: - Noticed leak yesterday from right eye and then developed pain today - BCL gently removed at slit lamp, area of perforation appears sealed but very thin, kun negative - Re-glued today, very difficult gluing given significant eyelid tenderness, small palpebral opening, unable to place speculum - Appears to have good effect right now. 30 min post glue application patient is kun neg and in less pain. - Despite multiple attempts due to eyelid tenderness unable to place BCL - Of note, during conversation today he states that after he treats his skin cancers in about 1 month he may be more interested in the evisceration Follow up today because of pain and irritation OD: - Stable exam with thin area but kun negative - Piece of glue found and removed - Trichiatic lashes abutting on the cornea removed - BCL placed (bioinfinity) We will call him back for a follow up appointment after discussing with Dr. Karlos Domingo [facility]02-14-2025 History of Present illness Narrative* Meri Elizondo MD - 06/13/2024 3:06 PM EST Urgent visit. 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 - Seen 05/16/[address] Roy - had perforated cornea with collapsed globe, glued - Seen 05/20/[address] Salazar for evisceration eval given repeated failed grafts and perforations - patient elects to try for possible PKP OD - Seen 05/22/[address] Fuchs: - Reports significant pain that started yesterday, trouble sleeping. Exam today with reformed globe, area of perforation appears sealed, but very thin - New hemorrhagic choroidal detachment, cornea closed but increasing pain secondary to choroidal - Long discussion regarding options including evisceration versus protecting eye to stabilize - Based on epithelial recovery after epilation of lashes, still has reasonable epithelial reserve but needs to have permanent near-total tarsorrhaphy - Discussed that choroidal hemorrhage may lead to retinal detachment that may lead to phthisis without further surgery - Bandage contact lens placed 05/22/24 OD Urgent visit today 06/10/24: - Noticed leak yesterday from right eye and then developed pain today - BCL gently removed at slit lamp, area of perforation appears sealed but very thin, kun negative - Re-glued today, very difficult gluing given significant eyelid tenderness, small palpebral opening, unable to place speculum - Appears to have good effect right now. 30 min post glue application patient is kun neg and in less pain. - Despite multiple attempts due to eyelid tenderness unable to place BCL - Of note, during conversation today he states that after he treats his skin cancers in about 1 month he may be more interested in the evisceration Follow up today because of pain and irritation OD: - Stable exam with thin area but kun negative - Piece of glue found and removed - Trichiatic lashes abutting on the cornea removed - BCL placed (bioinfinity) We will call him back for a follow up appointment after discussing with Dr. Karlos Domingo MD documented in this encounterSelect [facility] Telephone encounter Note * Telephone Encounter - Tere NievesJustoDeborah - 06/13/2024 10:16 AM EST Images from the original note were not included. View All Conversations on this Encounter You Meri Elizondo MDJust now (10:16 AM) TG I sent message yesterday that he wasn't able to make it due to the icy weather. Thank you for seeing him today. Meri Elizondo MD You23 minutes ago (9:52 AM) NE He was supposed to come yesterday but yes is fine thanks! [facility]02-14-2025 Miscellaneous Notes* Telephone Encounter - Ruben Nieves - 06/13/2024 10:16 AM EST Images from the original note were not included. View All Conversations on this Encounter You Meri Elizondo MDJust now (10:16 AM) TG I sent message yesterday that he wasn't able to make it due to the icy weather. Thank you for seeing him today. Meri Elizondo MD You23 minutes ago (9:52 AM) NE He was supposed to come yesterday but yes is fine thanks! * Telephone Encounter - Ruben Nieves - 06/13/2024 9:22 AM EST Is it ok for patient to come at 2:15 today? * Telephone Encounter - Debbie Ley - 06/12/2024 4:35 PM EST patient calling to confirm 06/13 appt at 2:15 pm with the lady physician please call him back at [phone] * Telephone Encounter - Ruben Nieves - 06/12/2024 12:56 PM EST LV: 06/11/24 FV: 08/26/24 Patient had to cancel today's appointment due to weather and would like to reschedule for tomorrow around 10:00 AM or so if possible. Otherwise, I did offer him a 2:15 tomorrow (saw you had someone scheduled at 2:00) and he said he would take that. Please advise. Eloise Brooks MD filed at 06/11/2024 8:35 AM Status: Addendum Urgent visit. 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 - Seen 05/16/[address] Roy - had perforated cornea with collapsed globe, glued - Seen 05/20/[address] Salazar for evisceration eval given repeated failed grafts and perforations - patient elects to try for possible PKP OD - Seen 05/22/[address] Fuchs: - Reports significant pain that started yesterday, trouble sleeping. Exam today with reformed globe, area of perforation appears sealed, but very thin - New hemorrhagic choroidal detachment, cornea closed but increasing pain secondary to choroidal - Long discussion regarding options including evisceration versus protecting eye to stabilize - Based on epithelial recovery after epilation of lashes, still has reasonable epithelial reserve but needs to have permanent near-total tarsorrhaphy - Discussed that choroidal hemorrhage may lead to retinal detachment that may lead to phthisis without further surgery - Bandage contact lens placed 05/22/24 OD Urgent visit today 06/10/24: - Noticed leak yesterday from right eye and then developed pain today - BCL gently removed at slit lamp, area of perforation appears sealed but very thin, kun negative - Re-glued today, very difficult gluing given significant eyelid tenderness, small palpebral opening, unable to place speculum - Appears to have good effect right now. 30 min post glue application patient is kun neg and in less pain. - Despite multiple attempts due to eyelid tenderness unable to place BCL - Of note, during conversation today he states that after he treats his skin cancers in about 1 month he may be more interested in the evisceration RTC 06/12/24 at 830AM with cornea fellow Dr. Irwin Domingo (of note patient states he may want to move appointment given poor weather upcoming, told patient to call if that is the case) Eloise Brooks MD Ophthalmology Resident PGY-3 Discussed with cornea fellow Dr. Irwin Domingo I reviewed the pertinent patient history and agree with Dr. Brooks's recommended plan for care. Though I did not see the patient, I was immediately available to see the patient. Meri Domingo MD, PGY-6 Cornea Fellow [facility] documented in this encounterSelect [facility] Telephone encounter Note * Telephone Encounter - Ruben Nieves - 06/13/2024 9:22 AM EST Is it ok for patient to come at 2:15 today? [facility]02-[facility] Telephone encounter Note* Telephone Encounter - Debbie Ley - 06/12/2024 4:35 PM EST patient calling to confirm 06/13 appt at 2:15 pm with the lady physician please call him back at [phone] [facility] Work Phone: 1(809) 783-523602-13-2025 Telephone encounter Note* Telephone Encounter - Ruben Nieves - 06/12/2024 12:56 PM EST LV: 06/11/24 FV: 08/26/24 Patient had to cancel today's appointment due to weather and would like to reschedule for tomorrow around 10:00 AM or so if possible. Otherwise, I did offer him a 2:15 tomorrow (saw you had someone scheduled at 2:00) and he said he would take that. Please advise. Eloise Brooks MD filed at 06/11/2024 8:35 AM Status: Addendum Urgent visit. 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 - Seen 05/16/[address] Roy - had perforated cornea with collapsed globe, glued - Seen 05/20/[address] Salazar for evisceration eval given repeated failed grafts and perforations - patient elects to try for possible PKP OD - Seen 05/22/[address] Fuchs: - Reports significant pain that started yesterday, trouble sleeping. Exam today with reformed globe, area of perforation appears sealed, but very thin - New hemorrhagic choroidal detachment, cornea closed but increasing pain secondary to choroidal - Long discussion regarding options including evisceration versus protecting eye to stabilize - Based on epithelial recovery after epilation of lashes, still has reasonable epithelial reserve but needs to have permanent near-total tarsorrhaphy - Discussed that choroidal hemorrhage may lead to retinal detachment that may lead to phthisis without further surgery - Bandage contact lens placed 05/22/24 OD Urgent visit today 06/10/24: - Noticed leak yesterday from right eye and then developed pain today - BCL gently removed at slit lamp, area of perforation appears sealed but very thin, kun negative - Re-glued today, very difficult gluing given significant eyelid tenderness, small palpebral opening, unable to place speculum - Appears to have good effect right now. 30 min post glue application patient is kun neg and in less pain. - Despite multiple attempts due to eyelid tenderness unable to place BCL - Of note, during conversation today he states that after he treats his skin cancers in about 1 month he may be more interested in the evisceration RTC 06/12/24 at 830AM with cornea fellow Dr. Irwin Domingo (of note patient states he may want to move appointment given poor weather upcoming, told patient to call if that is the case) Eloise Brooks MD Ophthalmology Resident PGY-3 Discussed with cornea fellow Dr. Irwin Domingo I reviewed the pertinent patient history and agree with Dr. Brooks's recommended plan for care. Though I did not see the patient, I was immediately available to see the patient. Meri Domingo MD, PGY-6 Cornea Fellow [facility]02-11-2025 NoteHNO ID: [id number] Author: MERI ELIZONDO MD Service: ? Author Type: Resident Type: Progress Notes Filed: 06/11/2024 08:35 Note Text: Urgent visit. 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 - Seen 05/16/[address] Roy - had perforated cornea with collapsed globe, glued - Seen 05/20/[address] Salazar for evisceration eval given repeated failed grafts and perforations - patient elects to try for possible PKP OD - Seen 05/22/[address] Fuchs: - Reports significant pain that started yesterday, trouble sleeping. Exam today with reformed globe, area of perforation appears sealed, but very thin - New hemorrhagic choroidal detachment, cornea closed but increasing pain secondary to choroidal - Long discussion regarding options including evisceration versus protecting eye to stabilize - Based on epithelial recovery after epilation of lashes, still has reasonable epithelial reserve but needs to have permanent near-total tarsorrhaphy - Discussed that choroidal hemorrhage may lead to retinal detachment that may lead to phthisis without further surgery - Bandage contact lens placed 05/22/24 OD Urgent visit today 06/10/24: - Noticed leak yesterday from right eye and then developed pain today - BCL gently removed at slit lamp, area of perforation appears sealed but very thin, kun negative - Re-glued today, very difficult gluing given significant eyelid tenderness, small palpebral opening, unable to place speculum - Appears to have good effect right now. 30 min post glue application patient is kun neg and in less pain. - Despite multiple attempts due to eyelid tenderness unable to place BCL - Of note, during conversation today he states that after he treats his skin cancers in about 1 month he may be more interested in the evisceration RTC 06/12/24 at 830AM with cornea fellow Dr. Irwin Domingo (of note patient states he may want to move appointment given poor weather upcoming, told patient to call if that is the case) Eloise Brooks MD Ophthalmology Resident PGY-3 Discussed with cornea fellow Dr. Irwin Domingo I reviewed the pertinent patient history and agree with Dr. Brooks's recommended plan for care. Though I did not see the patient, I was immediately available to see the patient. Meri Domingo MD, PGY-6 Cornea Fellow [facility]02-11-2025 History of Present illness Narrative* Eloise Brooks MD - 06/10/2024 7:53 PM EST Urgent visit. 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 - Seen 05/16/[address] Roy - had perforated cornea with collapsed globe, glued - Seen 05/20/[address] Salazar for evisceration eval given repeated failed grafts and perforations - patient elects to try for possible PKP OD - Seen 05/22/[address] Fuchs: - Reports significant pain that started yesterday, trouble sleeping. Exam today with reformed globe, area of perforation appears sealed, but very thin - New hemorrhagic choroidal detachment, cornea closed but increasing pain secondary to choroidal - Long discussion regarding options including evisceration versus protecting eye to stabilize - Based on epithelial recovery after epilation of lashes, still has reasonable epithelial reserve but needs to have permanent near-total tarsorrhaphy - Discussed that choroidal hemorrhage may lead to retinal detachment that may lead to phthisis without further surgery - Bandage contact lens placed 05/22/24 OD Urgent visit today 06/10/24: - Noticed leak yesterday from right eye and then developed pain today - BCL gently removed at slit lamp, area of perforation appears sealed but very thin, kun negative - Re-glued today, very difficult gluing given significant eyelid tenderness, small palpebral opening, unable to place speculum - Appears to have good effect right now. 30 min post glue application patient is kun neg and in less pain. - Despite multiple attempts due to eyelid tenderness unable to place BCL - Of note, during conversation today he states that after he treats his skin cancers in about 1 month he may be more interested in the evisceration RTC 06/12/24 at 830AM with cornea fellow Dr. Irwin Domingo (of note patient states he may want to move appointment given poor weather upcoming, told patient to call if that is the case) Eloise Brooks MD Ophthalmology Resident PGY-3 Discussed with cornea fellow Dr. Irwin Domingo I reviewed the pertinent patient history and agree with Dr. Brooks's recommended plan for care. Though I did not see the patient, I was immediately available to see the patient. Meri Domingo MD, PGY-6 Cornea Fellow [facility] documented in this encounterSelect [facility] Telephone encounter Note * Telephone Encounter - Ruben Nieves - 06/10/2024 4:26 PM EST Images from the original note were not included. Spoke with patient and relayed message, he is on his way. Alexis Singh with notify resident button machine operator and contact patient with instructions. Mariam Roy MD You; Meri Elizondo MD1 hour ago (3:00 PM) SP I am still at [place] and Dr Irwin Domingo is in the operating room doing a ruptured globe. He should come in to see the resident button machine operator [facility]02-11-2025 Miscellaneous Notes* Telephone Encounter - Ruben Nieves - 06/10/2024 4:26 PM EST Images from the original note were not included. Spoke with patient and relayed message, he is on his way. Alexis Singh with notify resident button machine operator and contact patient with instructions. Mariam Roy MD You; Meri Elizondo MD1 hour ago (3:00 PM) SP I am still at [place] and Dr Irwin Domingo is in the operating room doing a ruptured globe. He should come in to see the resident button machine operator * Telephone Encounter - Ruben Nieves - 06/10/2024 1:39 PM EST LV: 05/22/24 FV: 08/26/24 Patient reports OD started leaking yesterday and would like to schedule appointment to stop leaking. Please advise Gabo Fuchs MD filed at 05/22/2024 11:10 AM Status: Signed Encounter Diagnosis ICD-10-CM 1. 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 Other vitreous opacities, right eye H43.391 BSCAN OD (RIGHT EYE) 5. 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 Seen Sunday - had perforated cornea with collapsed globe, glued Seen yesterday by Dr Salazar for evisceration eval given repeated failed grafts and perforations - patient elects to try for possible PKP OD Reports significant pain that started yesterday, trouble sleeping. Exam today with reformed globe, area of perforation appears sealed, but very thin New hemorrhagic choroidal detachment, cornea closed but increasing pain secondary to choroidal Long discussion regarding options including evisceration versus protecting eye to stabilize Based on epithelial recovery after epilation of lashes, still has reasonable epithelial reserve butneeds to have permanent near-total tarsorrhaphy Discussed that choroidal hemorrhage may lead to retinal detachment that may lead to phthisis without further surgery Patient remains unsure Bandage contact lens placed today OD Kontur 16mm BC = 8.6 Prophylaxis with ceftaz If symptoms improve can follow-up with me in 2 weeks If symptoms worsen call JOSSELYN can discuss option of evisceration versus emergent corneal repair if repeat perforation During this patient visit I have spent approximately 40 minutes out of 45 in counseling regarding medical diagnoses, treatment options and coordinating care. Gabo Fuchs MD Electronically signed on May 22, 2024 at 11:10 AM I have confirmed and edited as necessary the relevant ophthalmic history, ROS, and the neuro exam findings as obtained by others. I have seen and examined this patient. I have discussed the case and the management of this patient's care with the Resident/Fellow, if applicable. I also have reviewed and agree with the assessment and plan as stated above and agree with all of its relevant components. Gabo Fuchs MD documented in this encounterSelect [facility] Telephone encounter Note * Telephone Encounter - Ruben Nieves - 06/10/2024 1:39 PM EST LV: 05/22/24 FV: 08/26/24 Patient reports OD started leaking yesterday and would like to schedule appointment to stop leaking. Please advise Gabo Fcuhs MD filed at 05/22/2024 11:10 AM Status: Signed Encounter Diagnosis ICD-10-CM 1. 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 Other vitreous opacities, right eye H43.391 BSCAN OD (RIGHT EYE) 5. 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 Seen Sunday - had perforated cornea with collapsed globe, glued Seen yesterday by Dr Salazar for evisceration eval given repeated failed grafts and perforations - patient elects to try for possible PKP OD Reports significant pain that started yesterday, trouble sleeping. Exam today with reformed globe, area of perforation appears sealed, but very thin New hemorrhagic choroidal detachment, cornea closed but increasing pain secondary to choroidal Long discussion regarding options including evisceration versus protecting eye to stabilize Based on epithelial recovery after epilation of lashes, still has reasonable epithelial reserve butneeds to have permanent near-total tarsorrhaphy Discussed that choroidal hemorrhage may lead to retinal detachment that may lead to phthisis without further surgery Patient remains unsure Bandage contact lens placed today OD Kontur 16mm BC = 8.6 Prophylaxis with ceftaz If symptoms improve can follow-up with me in 2 weeks If symptoms worsen call JOSSELYN can discuss option of evisceration versus emergent corneal repair if repeat perforation During this patient visit I have spent approximately 40 minutes out of 45 in counseling regarding medical diagnoses, treatment options and coordinating care. Gabo Fuchs MD Electronically signed on May 22, 2024 at 11:10 AM I have confirmed and edited as necessary the relevant ophthalmic history, ROS, and the neuro exam findings as obtained by others. I have seen and examined this patient. I have discussed the case and the management of this patient's care with the Resident/Fellow, if applicable. I also have reviewed and agree with the assessment and plan as stated above and agree with all of its relevant components. Gabo Fuchs MD [facility]02-10-2025 History of Present illness Narrative* Mariluz Rubin MD - 06/09/2024 9:00 AM EST Images from the original note were not included. 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 The patient reports a history of multiple skin lesions, most recently had biopsy of a nasal ala (BCC) and neck (melanoma) by his veterans employment representative. He underwent excision of the nose lesion with Dr Foster and is referred to me for the neck melanoma. No itching, pain, drainage or bleeding in the area. Has stiches on his nose from recent procedure that need to be removed. Has had sun exposure throughout his life. Prior skin cancers to the head and neck, no prior melanoma. The patient denies having prior trauma or surgery to their head and neck. There is not a personal or family history of blood clots, easy bleeding or bruising, or anesthesia concerns. He lives at homewith his who accompanies him today and assists with history and treatment planning. Never smoker Tobacco use: The patient reports that he has never smoked. He has never been exposed to tobacco smoke. He has never used smokeless tobacco. Alcohol Use: The patient reports no history of alcohol use. Physical Examination Vitals: Temp 36.4 C (97.5 F) (Temporal) Wt 122 kg (268 lb 6.4 oz) General: Examination reveals a well-developed, well-nourished patient in no apparent distress. The patient has no audible dysphonia, stridor or airway distress. The patient is oriented, alert and responsive. Skin: multiple spots throughout face and scalp, left 1 cm plaque-like lesion posterior SCM Oral Cavity: The patient is able to open the mouth widely without trismus. The floor of mouth and oral tongue are soft, and no mucosal abnormalities are noted on the lips or within the oral cavity. The oral tongue is fully mobile and midline on protrusion. Oropharynx: There are no mucosal abnormalities noted within the oropharynx. The soft palate elevates symmetrically, the tonsils and base of tongue are normal to inspection and palpation. Salivary glands: There are no palpable masses of the parotid or submandibular glands. Neuro: Cranial nerves 2-12 are without obvious abnormality. Neck: The neck is soft and symmetric. There is no palpable adenopathy. DATA REVIEWED: Discussions with other providers: I discussed this case with Sejal Simms (Derm) regarding initialreferral to Dr Foster (Derm) and given concerning features felt patient warranted SLNBx Review of prior medical records: I reviewed the patient's medical records which included a clinic note from Dr. Foster from 06/03/24 who detailed excision of the left nasal ala malignancy Pathology: I reviewed the pathology report from the biopsy 05/20/24 which demonstrated shave biopsy with 0.3 mm depth, ulceration present, lentigo malignant type, 0 mm mitotic rate; reviewed at 05/30/24 and 0.4 mm depth with presence at deep and superficial margin, ulceration present ASSESSMENT and PLAN: Cancer Staging Malignant melanoma of neck (Multi), Staging form: Melanoma of the Skin, AJCC 8th Edition, Clinical:cT1b - Unsigned - Exam and pathology findings discussed with patient and family - Recommend proceeding with WLE melanoma with 1 cm margins and [place] Lymph node biopsy - Reviewed the procedure for SLNBx including injection with radiotracer dye, use of imaging and gamma probe to identify the probable sentinel node. I will address risks specific to the node location on the day of surgery. General risks and benefits discussed including pain, bleeding, infection, scar, need or further procedures, risks of anesthesia, poor cosmetic outcome, damage to surrounding structures including nerves and blood vessels. Also reviewed the risk of not being able to localize a sentinel lymph node - Reconstruction options discussed including staged reconstruction, split or full thickness skin graft, primary closure, local tissue rearrangement and referral to my facial plastic surgery colleagues. For this patient, I recommend staged v same-day local tissue rearrangement. Left nasal malignancy s/p excision and closure with Dr Foster - sutures removed today, healing well Questions were answered and they are in agreement with the plan Mariluz Rubin MD documented in this [facility] Work Phone: 1(310) 518-386302-10-2025 Instructions* Patient Instructions* Mariluz Rubin MD - 06/09/2024 9:00 AM EST Patient Education Melanoma skin cancer What is melanoma? -- Melanoma is a serious form of skin cancer. It happens when normal cells in theskin change into abnormal cells and grow out of control. Melanoma can occur anywhere on the skin, including the back and other hard-to-see areas. It can also occur on the skin lining the mouth, nose, and genitals. When it is not treated, melanoma can spread to organs inside the body. Melanoma can run in families. What are the symptoms of melanoma? -- Melanoma often looks like a brown or black mole or birthmark.But melanoma has features that make it different from normal moles and birthmarks. One way to remember the abnormal features of melanoma is to think of the letters A, B, C, D, and E (picture 1): Asymmetry - One half can look different than the other half. Border - It can have a jagged or uneven edge. Color - It can have a mix of colors (like brown, black, and red). Diameter - It is larger than the eraser on the end of a pencil. Evolution - Its size, color, or shape can global climate change researcher time. Melanomas can also turn into sores that bleed. Many moles and birthmarks are normal and are not melanoma. But if you have a mole or birthmark thatyou think might be abnormal, show it to your doctor or nurse. Is there a test for melanoma? -- Yes. Your doctor or nurse will do an exam and check the skin all over your body. If they suspect you have melanoma, you will have a follow-up test called a biopsy. During a biopsy, a doctor will usually remove the whole abnormal area. In some cases, the doctor mightinstead take a small sample of skin from the abnormal area. Either way, another doctor will look atthe skin that is removed under a microscope to see if the cells are melanoma. What is melanoma staging? -- Staging is a way in which doctors find out how deep in the skin and how far inside the body the melanoma has spread. The right treatment for you will depend a lot on the stage of your melanoma. Your treatment will also depend on your age and other medical problems. How is melanoma treated? -- Most people with melanoma have 1 or more of the following treatments depending on the stage: Surgery - Melanoma is usually treated with surgery to remove the cancer. Most people need more surgery even if the biopsy appeared to have removed the whole abnormal area. During surgery, the doctor might also check nearby lymph nodes to see if the melanoma has spread inside the body. Lymph nodes are lepe-shaped organs under the skin that store infection-fighting cells. Immunotherapy - Immunotherapy is the term doctors use to describe medicines that work with the body's infection-fighting system to stop cancer growth. Targeted therapy - Targeted therapy is the term doctors use to describe a group of medicines that work only on cancers with certain characteristics. These medicines usually work by blocking a specific protein or molecule. Radiation therapy - Radiation kills cancer cells. Chemotherapy - Chemotherapy is the medical term for medicines that kill cancer cells or stop them from growing. What happens after treatment? -- After treatment, you will need to be checked every so often to seeif the melanoma comes back or if new melanomas appear. Your doctor will do an exam and check your skin all over. They might also order follow-up imaging tests. Imaging tests create pictures of the inside of your body and can show abnormal growths. Most doctors also recommend that you check your skin every month to look for any changes. It might also help to have a partner, friend, or relative help you. They can check parts of your body that are hard for you to see, like your back. Tell your doctor or nurse if you find any new moles or birthmarks, or if the ones you have look different. Can melanoma be prevented? -- You can help prevent melanoma by protecting your skin from the sun's rays. Sun exposure and sunburn are a big cause of melanoma. To reduce the chance of getting melanoma, you can: Stay out of the sun in the middle of the day (from 10 AM to 4 PM) Wear sunscreen and reapply it often Wear a wide-brimmed hat, long-sleeved shirt, or long pants Not use tanning beds. They increase your risk of getting melanoma. Some people are at higher risk for melanoma than others. You might be at higher risk if you have family members who have had melanoma or if you have had certain abnormal moles in the past. In this case, your doctor might recommend checking your skin yourself every month to look for any changes, plus getting an exam once a year. Lymphoscintigraphy (injection with radioactive dye with lymph node imaging) Why is this procedure done? Lymphoscintigraphy is a special kind of test that makes pictures of your lymph node system. You have lymph nodes all over your body. They help fight infection and are a part of your body's natural defense against illness. Your doctor may order this test to: Find the first lymph node that drains or takes waste from a tumor. This is the sentinel lymph node. Plan surgery or a biopsy if there is concern that the first lymph node has tumor cells. Look for places where the lymph drainage is blocked. See how advanced your disease or cancer is. What happens before the procedure? Your doctor will take your history. Talk to the doctor about: All the drugs you are taking. Be sure to include all prescription and wixt-lal-zyretsz (OTC) drugs,and herbal supplements. Tell the doctor if you have any drug allergy. Bring a list of drugs you take with you. Any bleeding problems. Be sure to tell your doctor if you are taking any drugs that may cause bleeding. Some of these are warfarin, rivaroxaban, apixaban, ticagrelor, clopidogrel, ketorolac, ibuprofen, naproxen, or aspirin. Certain vitamins and herbs, such as garlic and fish oil, may also add to the risk for bleeding. You may need to stop these drugs as well. Talk to your doctor about them. If you are or might be or if you are currently . If you need to stop eating or drinking before your procedure. Wear comfortable clothes the morning of your procedure. Do not wear makeup or jewelry. What happens during the procedure? You will lie on an exam table for the procedure. Your doctor will inject a tracer substance, or dye, that is radioactive. The tracer may be injected into your vein, skin, or other tissues. For someexams, you may breathe in a gas or swallow a substance with the tracer in it. This will help find the sentinel lymph node. A special type of camera will take pictures of the area being studied. Remain still while the pictures are being taken. The camera may move to different positions or it may be still and you may need to change positions. A handheld camera can also be used. The camera may also show areas with more of the radioactive tracer called hot spots or areas of concern when checking for the spread of a disease like cancer. You may need to have the tracer given to you more than once and have pictures taken more than once.Sometimes, you may need to do light exercises and then have more pictures taken. This procedure may take 1 to 4 hours. Sometimes, this special camera and radioactive tracer are used during a surgery rather than before a biopsy or surgery. What happens after the procedure? You are sent to the operating room for a biopsy immediately after this test. Sometimes, you go homeafter the test and the biopsy is done the next day. Talk with your doctor to clarify your schedule. If you had an IV placed for the test, it will be removed before you go home. You may feel pain where the tracer was injected. Take the pain drugs as ordered by your doctor. Ask your doctor when the results will be available. What care is needed at home? Ask your doctor what you need to do when you go home. Make sure you ask questions if you do not understand what the doctor says. This way you will know what you need to do. The injection site may have some bruising. Place an ice pack or a bag of frozen peas wrapped in a towel over the painful part. Never put ice right on the skin. Do not leave the ice on more than 10 to15 minutes at a time. [place] lymph node biopsy (procedure in the operating room to remove one or more lymph nodes) What is a sentinel lymph node biopsy? -- This is an operation to check if melanoma has spread to the lymph nodes. Lymph nodes are lepe-shaped organs found all over the body, including the head and neck. They are part of a network of vessels called the called the lymphatic system, which carries a clear fluid called lymph . When melanoma cancer cells spread, they usually travel first through the lymph to 1 ormore lymph nodes in the head and neck. These lymph nodes are called sentinel lymph nodes. During a sentinel lymph node biopsy ( SLNB ), a surgeon finds, takes out, and checks the sentinel lymph node (or nodes) for cancer cells. Knowing whether cancer is in the sentinel lymph nodes helps the doctor choose the right treatment. What happens during an SLNB? -- The operation is done under general anesthesia. This means that youwill get medicines to make you unconscious. These might be given through a small tube into a vein (called an IV ) or gases that you breathe through a mask. Doctors use different techniques to find the sentinel node (figure 2): Blue dye - The doctor injects blue dye into your head and neck near the cancer after you are unconscious in the operating room. The dye travels through the lymph and turns the sentinel node blue. A radioactive substance - The doctor injects a radioactive substance into your head and neck near the cancer, before you go to the operating room. Then, after you are unconscious, the doctor uses a special device that finds radioactive substances to locate the sentinel lymph node. (See lymphoscintigraphy section above for more information). Many surgeons use 2 of these techniques, but some use just 1. After finding the sentinel node, the surgeon makes a small cut to take it out, then sends it to a lab. A different doctor (the pathologist) then checks the node for cancer cells. Sometimes, more than 1 sentinel node is found and taken out. Most people do not have cancer in their sentinel lymph nodes. Rarely, no sentinel lymph node is identified (this happens 5% of the time.) What happens after an SLNB? -- Risks of surgery include pain, bruising, or bleeding, an infection. Your doctor will prescribe pain relievers or other medicines to treat any symptoms. If your doctor used blue dye, part of your skin may be blue until all of the dye disappears from your body. Your urine may also turn green for 1 day. In rare cases, people are allergic to the dye used for SLNB. Your doctor will tell you about this risk and answer any questions you have before the operation. The allergic reaction happens in the operating room and is treated right away with medicines given through an IV. If your doctor used a radioactive substance, the amount of radioactivity is very low and not harmful. It leaves your body quickly through your urine. You are not radioactive or dangerous to other people near you. Your doctor will tell you about the results of the biopsy. They will also tell you if additional lymph nodes need to be removed from your head and neck Written by the doctors and editors at [employer] with editing by the doctors at [facility] Consumer Information Use and Disclaimer Disclaimer: This generalized information is a limited summary of diagnosis, treatment, and/or medication information. It is not meant to be comprehensive and should be used as a tool to help the userunderstand and/or assess potential diagnostic and treatment options. It does NOT include all information about conditions, treatments, medications, side effects, or risks that may apply to a specificpatient. It is not intended to be medical advice or a substitute for the medical advice, diagnosis,or treatment of a health care provider based on the health care provider's examination and assessment of a patient's specific and unique circumstances. Patients must speak with a health care providerfor complete information about their health, medical questions, and treatment options, including any risks or benefits regarding use of medications. This information does not endorse any treatments or medications as safe, effective, or approved for treating a specific patient. [employer] and its affiliates disclaim any warranty or liability relating to this information or the use thereof.The use of this information is governed by the Terms of Use, available at https://www.[employer].com/en/know/bdpmztyl-qetraijessjcm-sfofr. 2023 [employer] and its affiliates and/or licensors. All rights reserved. Copyright 2023 [employer]. and/or its affiliates. All rights reserved. documented in this [facility]Tri[facility] Work Phone: [phone]) 841-366102-05-2025 Telephone encounter Note* Telephone Encounter - Ruben Nieves - 06/04/2024 3:14 PM EST LV: 05/22/24 FV: 06/05/24 Patient would like to reschedule appointment due to freezing rain etc., and he also had a small procedure done yesterday. Please advise. Gabo Fuchs MD filed at 05/22/2024 11:10 AM Status: Signed Encounter Diagnosis ICD-10-CM 1. 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 Other vitreous opacities, right eye H43.391 BSCAN OD (RIGHT EYE) 5. 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 Seen Sunday - had perforated cornea with collapsed globe, glued Seen yesterday by Dr Salazar for evisceration eval given repeated failed grafts and perforations - patient elects to try for possible PKP OD Reports significant pain that started yesterday, trouble sleeping. Exam today with reformed globe, area of perforation appears sealed, but very thin New hemorrhagic choroidal detachment, cornea closed but increasing pain secondary to choroidal Long discussion regarding options including evisceration versus protecting eye to stabilize Based on epithelial recovery after epilation of lashes, still has reasonable epithelial reserve butneeds to have permanent near-total tarsorrhaphy Discussed that choroidal hemorrhage may lead to retinal detachment that may lead to phthisis without further surgery Patient remains unsure Bandage contact lens placed today OD Kontur 16mm BC = 8.6 Prophylaxis with ceftaz If symptoms improve can follow-up with me in 2 weeks If symptoms worsen call JOSSELYN can discuss option of evisceration versus emergent corneal repair if repeat perforation During this patient visit I have spent approximately 40 minutes out of 45 in counseling regarding medical diagnoses, treatment options and coordinating care. Gabo uFchs MD Electronically signed on May 22, 2024 at 11:10 AM I have confirmed and edited as necessary the relevant ophthalmic history, ROS, and the neuro exam findings as obtained by others. I have seen and examined this patient. I have discussed the case and the management of this patient's care with the Resident/Fellow, if applicable. I also have reviewed and agree with the assessment and plan as stated above and agree with all of its relevant components. Gabo Fuchs MD [facility]02-05-2025 Miscellaneous Notes* Telephone Encounter - Ruben Nieves - 06/04/2024 3:14 PM EST LV: 05/22/24 FV: 06/05/24 Patient would like to reschedule appointment due to freezing rain etc., and he also had a small procedure done yesterday. Please advise. Gabo Fuchs MD filed at 05/22/2024 11:10 AM Status: Signed Encounter Diagnosis ICD-10-CM 1. 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 Other vitreous opacities, right eye H43.391 BSCAN OD (RIGHT EYE) 5. 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 Seen Sunday - had perforated cornea with collapsed globe, glued Seen yesterday by Dr Salazar for evisceration eval given repeated failed grafts and perforations - patient elects to try for possible PKP OD Reports significant pain that started yesterday, trouble sleeping. Exam today with reformed globe, area of perforation appears sealed, but very thin New hemorrhagic choroidal detachment, cornea closed but increasing pain secondary to choroidal Long discussion regarding options including evisceration versus protecting eye to stabilize Based on epithelial recovery after epilation of lashes, still has reasonable epithelial reserve butneeds to have permanent near-total tarsorrhaphy Discussed that choroidal hemorrhage may lead to retinal detachment that may lead to phthisis without further surgery Patient remains unsure Bandage contact lens placed today OD Kontur 16mm BC = 8.6 Prophylaxis with ceftaz If symptoms improve can follow-up with me in 2 weeks If symptoms worsen call JOSSELYN can discuss option of evisceration versus emergent corneal repair if repeat perforation During this patient visit I have spent approximately 40 minutes out of 45 in counseling regarding medical diagnoses, treatment options and coordinating care. Gabo Fuchs MD Electronically signed on May 22, 2024 at 11:10 AM I have confirmed and edited as necessary the relevant ophthalmic history, ROS, and the neuro exam findings as obtained by others. I have seen and examined this patient. I have discussed the case and the management of this patient's care with the Resident/Fellow, if applicable. I also have reviewed and agree with the assessment and plan as stated above and agree with all of its relevant components. Gabo Fuchs MD documented in this encounter[facility] History of Present illness Narrative* Serg Foster MD PhD - 06/03/2024 8:00 AM EST Images from the original note were not included. Office Visit Note Date: 06/03/2024 Surgeon: Serg Foster MD PhD Office Location: [address] [facility] [address] Dept: [phone] Dept Referring Provider: Taylor Marquez, YOUTH MINISTER-METER/RELAY CRAFTSMAN [address] [place] [address] Subjective Mak Garces is a 68 y.o. male who presents for the following: MOHS Surgery According to the patient, the lesion has been present for approximately 1 month at the time of diagnosis. The lesion is not causing symptoms. The lesion has not been treated previously. The patient does not have a pacemaker / defibrillator. The patient does not have a heart valve / joint replacement. The patient is on blood thinners. The patient does not have a history of hepatitis B or C. The patient does not have a history of HIV. The patient does not have a history of immunosuppression (e.g. organ transplantation, malignancy, medications) Review of Systems: No other skin or systemic complaints other than what is documented elsewhere in the note. MEDICAL HISTORY: clinically relevant history including significant past medical history, medications and allergies was reviewed and documented in Epic. Objective Well appearing patient in no apparent distress; mood and affect are within normal limits. Vital signs: See record. Noted on the Left Ala Nasi Is a 0.5 x 0.6 cm scar The patient confirmed the identified site. Discussion: The nature of the diagnosis was explained. The lesion is a skin cancer. It has a risk of local growth and distant spread. The condition is associated with sun exposure. Warning signs of non-melanoma skin cancer discussed. Patient was instructed to perform monthly self skin examination. We recommended that the patient have regular full skin exams given an increased risk of subsequent skin cancers. The patient was instructed to use sun protective behaviors including use of broad spectrum sunscreens and sun protective clothing to reduce risk of skin cancers. Risks, benefits, side effects of Mohs surgery were discussed with patient and the patient voiced understanding. It was explained that even though the cure rate of Mohs is very high it is not 100%. Risks of surgery including but not limited to bleeding, infection, numbness, nerve damage, and scar were reviewed. Discussion included wound care requirements, activity restrictions, likely scar outcomeand time to heal. After Mohs surgery, the defect may need to be repaired surgically and the scar may be longer than the original lesion. Reconstruction options, risks, and benefits were reviewed including second intention healing, linear repair (4-1 ratio was explained), local flaps, skin grafts, cartilage grafts and interpolation flaps (the need for multiple surgeries was explained). Possible outcomes were reviewed including likely scar appearance, failure of flap survival, infection, bleeding and the need for revision surgery. The pathology was reviewed, the photograph was reviewed, and the referring physician's note was reviewed. Patient elected for Mohs surgery. * Serg Foster MD PhD - 06/03/2024 8:00 AM EST Images from the original note were not included. Mohs Surgery Operative Note Date of Surgery: 06/03/2024 Surgeon: Serg Foster MD PhD Office Location: [address] [facility] [address] Dept: [phone] Dept Referring Provider: Taylor Marquez APRN-METER/RELAY CRAFTSMAN [address] [facility] [address] [place] [address] Assessment/Plan Pre-procedure: Obtained informed consent: written from patient The surgical site was identified and confirmed with the patient. Intra-operative: Audible time out called at : 11:50 AM 06/03/24 by: Kailee So RN Verified patient name, birthdate, site, specimen bottle label & requisition. The planned procedure(s) was again reviewed with the patient. The risks of bleeding, infection, nerve damage and scarring were reviewed. Written authorization was obtained. The patient identity, surgical site, and planned procedure(s) were verified. The provider acted as both surgeon and pathologist. Basal cell carcinoma (BCC) of skin of nose Left Ala Nasi Mohs surgery Consent obtained: written [place] Protocol: Procedure explained and questions answered to patient or proxy's satisfaction: Yes Test results available and properly labeled: Yes Pathology report reviewed: Yes External notes reviewed: Yes Photo or diagram used for site identification: Yes Site/side marked: Yes Slide independently reviewed by Mohs surgeon: Yes Immediately prior to procedure a time out was called: Yes Patient identity confirmed: verbally with patient Preparation: Patient was prepped and draped in usual sterile fashion Anticoagulation: Is the patient taking prescription anticoagulant and/or aspirin prescribed/recommended by a physician? No Was the anticoagulation regimen changed prior to Mohs? No Anesthesia: Anesthesia method: local infiltration Local anesthetic: lidocaine 1% WITH epi Procedure Details: Case ID Number: [id number] Biopsy accession number: [id number] Date of biopsy: 05/20/2024 Frozen section biopsy performed: No Specimen debulked: Yes (nBCC) Pre-Op diagnosis: basal cell carcinoma BCC subtype: nodular Surgical site (from skin exam): Left Ala Nasi Pre-operative length (cm): 0.5 Pre-operative width (cm): 0.6 Indications for Mohs surgery: anatomic location where tissue conservation is critical Previously treated? No Micrographic Surgery Details: Post-operative length (cm): 0.9 Post-operative width (cm): 1 Number of Mohs stages: 1 Stage 1 Comments: The patient was brought into the operating room and placed in the procedure chair in the appropriate position. The area positive by previous biopsy was identified and confirmed with the patient. The area of clinically obvious tumor was debulked using a curette and/or scalpel as needed. Anincision was made following the Mohs approach through the skin. The specimen was taken to the lab, divided into 2 piece(s) and appropriately chromacoded and processed. Tumor features identified on Mohs section: no tumor identified Depth of defect: subcutaneous fat Patient tolerance of procedure: tolerated well, no immediate complications Reconstruction: Was the defect reconstructed? Yes Was reconstruction performed by the same Mohs surgeon? Yes Setting of reconstruction: outpatient office When was reconstruction performed? same day Type of reconstruction: flap Type of flap: transposition Transposition flap type: trilobed Flap area (cm2): 15 Subcutaneous Layers (Deep Stitches) Suture size: 5-0 Suture type: Vicryl Stitches: Buried vertical mattress Fine/surface layer approximation (top stitches) Fine approximation suture size: 6-0. Epidermal/Superficial suture type: Prolene Stitches: simple running Suture removal (days): 7 Hemostasis achieved with: electrodesiccation Outcome: patient tolerated procedure well with no complications Post-procedure details: sterile dressing applied and wound care instructions given Transposition Flap: Due to geometric and functional constraints, a trilobed flap reconstruction wasperformed to reconstruct the defect. To that end, adjacent tissue was incised and carried over to close the defect in the following manner: Transposition flap Using skin marking ink, a transposition flap was designed to repair the defect and minimize functional and cosmetic distortion. Given the size, depth, and location of the defect, the surrounding structures and local tissue laxity, it was felt that a transposition flap was necessary to provide the best mormonism of normal anatomy and function of the skin. The risks, benefits and likely outcome of the flap were discussed. The wound edges were refreshed to a 90 degree angle. The flap was cut and undermined extensively at the level of the subcutaneous plane. Standing cutaneous cones were removed using Burow's triangles. The flap was elevated and through closure of the secondary/tertiary defect the flap was transposed into the primary defect using multiple simmons deep sutures. The flap was trimmed where needed for a more accurate fit.The remainder of the flap was then affixed with epidermal sutures. The flap measured 15 cm2. Wound care was discussed, and the patient was given written post-operative wound care instructions. The patient will follow up with Serg Foster MD PhD as needed for any post operative problems or concerns, and will follow up with their primary veterans employment representative as scheduled. documented in this [facility] Work Phone: [phone]) 484-295701-23-2025 NoteDate of Procedure 05/22/2024. Data Miner Information Lorin Suggs [employer] Checker 05/22/2024 10:33 AM . Notes B Scan OD Hemorrhagic choroidal detachments 360 degrees with a maximum height of 14.8 mm at 9:00 anterior to the equator Within the mobile choroidal opacities is a non-mobile suspected clot Dense mobile vitreous opacities No retina detachment No [id number] ID: [id number] Author: GABO FUCHS MD Service: ? Author Type: Physician Type: Progress Notes Filed: 05/22/2024 11:10 Note Text: Encounter Diagnosis ICD-10-CM 1. 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 Other vitreous opacities, right eye H43.391 BSCAN OD (RIGHT EYE) 5. 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 Seen José Luis - had perforated cornea with collapsed globe, glued Seen yesterday by Dr Salazar for evisceration eval given repeated failed grafts and perforations - patient elects to try for possible PKP OD Reports significant pain that started yesterday, trouble sleeping. Exam today with reformed globe, area of perforation appears sealed, but very thin New hemorrhagic choroidal detachment, cornea closed but increasing pain secondary to choroidal Long discussion regarding options including evisceration versus protecting eye to stabilize Based on epithelial recovery after epilation of lashes, still has reasonable epithelial reserve but needs to have permanent near-total tarsorrhaphy Discussed that choroidal hemorrhage may lead to retinal detachment that may lead to phthisis without further surgery Patient remains unsure Bandage contact lens placed today OD Kontur 16mm BC = 8.6 Prophylaxis with ceftaz If symptoms improve can follow-up with me in 2 weeks If symptoms worsen call JOSSELYN can discuss option of evisceration versus emergent corneal repair if repeat perforation During this patient visit I have spent approximately 40 minutes out of 45 in counseling regarding medical diagnoses, treatment options and coordinating care. Gabo Fuchs MD Electronically signed on May 22, 2024 at 11:10 AM I have confirmed and edited as necessary the relevant ophthalmic history, ROS, and the neuro exam findings as obtained by others. I have seen and examined this patient. I have discussed the case and the management of this patient's care with the Resident/Fellow, if applicable. I also have reviewed and agree with the assessment and plan as stated above and agree with all of its relevant components. Gabo Fuchs, [facility]01-23-2025 History of Present illness Narrative* Gabo Fuchs MD - 05/22/2024 9:47 AM EST Encounter Diagnosis ICD-10-CM 1. 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 Other vitreous opacities, right eye H43.391 BSCAN OD (RIGHT EYE) 5. 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 Seen José Luis - had perforated cornea with collapsed globe, glued Seen yesterday by Dr Salazar for evisceration eval given repeated failed grafts and perforations - patient elects to try for possible PKP OD Reports significant pain that started yesterday, trouble sleeping. Exam today with reformed globe, area of perforation appears sealed, but very thin New hemorrhagic choroidal detachment, cornea closed but increasing pain secondary to choroidal Long discussion regarding options including evisceration versus protecting eye to stabilize Based on epithelial recovery after epilation of lashes, still has reasonable epithelial reserve butneeds to have permanent near-total tarsorrhaphy Discussed that choroidal hemorrhage may lead to retinal detachment that may lead to phthisis without further surgery Patient remains unsure Bandage contact lens placed today OD Kontur 16mm BC = 8.6 Prophylaxis with ceftaz If symptoms improve can follow-up with me in 2 weeks If symptoms worsen call JOSSELYN can discuss option of evisceration versus emergent corneal repair if repeat perforation During this patient visit I have spent approximately 40 minutes out of 45 in counseling regarding medical diagnoses, treatment options and coordinating care. Gabo Fuchs MD Electronically signed on May 22, 2024 at 11:10 AM I have confirmed and edited as necessary the relevant ophthalmic history, ROS, and the neuro exam findings as obtained by others. I have seen and examined this patient. I have discussed the case and the management of this patient's care with the Resident/Fellow, if applicable. I also have reviewed and agree with the assessment and plan as stated above and agree with all of its relevant components. Gabo Fuchs MD documented in this encounterSelect [facility] History of Present illness Narrative* Taylor Marquez, YOUTH MINISTER-METER/RELAY CRAFTSMAN - 05/20/2024 2:05 PM EST Images from the original note were not included. Skin Check Location: Patient requests a skin examination from the waist up Dermatologic history: no history of skin cancer, no history of atypical moles, no family history ofmelanoma Last visit: New patient Lesions: Location: left neck Duration: months Quality: denies pain, denies itch, denies bleeding Modifying factors: none Associated symptoms: change in shape, getting bigger Treatments: none Lesion # 2: Location: arms Duration: months Quality: denies pain, denies itch, denies bleeding Modifying factors: rubs on clothing Associated symptoms: rough, scaly Treatments: none Location #3: left nose Duration: months Quality: bleeding, denies pain, denies itch Modifying factors: aggravated by picking Associated symptoms: non-healing Treatments: none All pertinent medical history, medications, and allergies were reviewed. General Exam: alert, oriented to person, place, and time, normal affect, well appearing Unaccompanied A complete skin exam was offered, pt declined. Areas not examined despite medical recommendation: From the waist down Scalp, Examined Head, Face Examined Neck Examined Chest Examined Back Examined Abdomen Examined Right arm Examined Left arm Examined Hands Examined Digits,nails: Examined Lymphatics: Not examined 1. Seborrheic keratosis Stuck on verrucous, variably pigmented papules and plaques. Patient was counseled regarding these benign growths. Removal is normally not necessary, but they may be removed if they are symptomatic or for cosmetic reasons. 2. Actinic keratosis (3) Head - Anterior (Face), Left Ear, Right Ear Erythematous scaly papules Patient was counseled regarding these sun-induced growths that can develop into squamous cell carcinoma if left untreated. Discussed treatment options, including cryotherapy and topical preparations.It was emphasized that any treated lesions that fail to resolve should be re-evaluated. Patient elected for treatment with Efudex as this has become a chronic issue. Educated on Efudex treatment. Apply to Scalp, Forehead, Cheeks, and Ears twice a day for two weeks. Discussed that treated areas willbecome red, crusty, and inflamed. If areas become too uncomfortable, patient may use OTC hydrocortisone cream to help decrease irritation and can discontinue treatment early. Sun exposure should be avoided during treatment. Patient instructed to contact office for any questions or issues during treatment. Lesions that fail to resolve once treated area is healed should be re-evaluated in the office. Handout given to patient fluorouracil (Efudex) 5 % cream - Head - Anterior (Face), Left Ear, Right Ear Apply to directed areas on scalp, forehead, cheeks, and ears bid x 14 days 3. Melanocytic nevus of trunk Scattered benign appearing, regular brown to light brown melanocytic papules and macules with similar morphology Counseled regarding these benign growths. Rarely, a nevus can develop into malignant melanoma, so any changing nevi should be promptly re-evaluated. 4. Lentigines Scattered au macules in sun-exposed areas. The patient was informed that lentigines are benign pigmented lesions that occur on sun-exposed andsun-damaged skin. No treatment is necessary. Recommended regular use of broad spectrum sunscreen SPF 30 or higher 5. Capillary angioma Scattered michelle-red papule(s). The patient was informed that angiomas are benign growths on the the skin. No treatment is necessary. 6. Neoplasm of unspecified behavior of bone, soft tissue, and skin (4) Left Posterior Neck Irregularly pigmented papule Lesion biopsy Type of biopsy: tangential Informed consent: discussed and consent obtained Informed consent comment: The risks and benefits were discussed. Risks include, but are not limitedto, bleeding, infection, scarring, pain, & nerve damage. An opportunity to ask questions prior to the procedure was permitted and questions were answered. Patient was prepped and draped in usual sterile fashion: Area cleansed with alcohol. Anesthesia: the lesion was anesthetized in a standard fashion Anesthetic: 1% lidocaine w/ epinephrine 1-100,000 buffered w/ 8.4% NaHCO3 Instrument used: DermaBlade Hemostasis achieved with: suture and electrodesiccation Outcome: patient tolerated procedure well Post-procedure details: sterile dressing applied and wound care instructions given Post-procedure details comment: Emphasized the need to contact clinic for any signs of infection, uncontrollable bleeding, or complications. Dressing type: bandage Additional details: Amount of lidocaine used: 1.0 cc Photo taken Specimen A - Dermatopathology exam Differential Diagnosis: MM vs Pigmented BCC Check Margins: No Size of lesion: 0.5 x 1.0 cm Left [place] Hemorrhagic crusted macule Lesion biopsy Type of biopsy: tangential Informed consent: discussed and consent obtained Informed consent comment: The risks and benefits of the biopsy were discussed. Risks include but are not limited to bleeding, infection, scarring, pain, and nerve damage. An opportunity to ask questions prior to the procedure was permitted and all questions were answered. Patient was prepped and draped in usual sterile fashion: area cleansed with alcohol. Anesthesia: the lesion was anesthetized in a standard fashion Anesthetic: 1% lidocaine w/ epinephrine 1-100,000 buffered w/ 8.4% NaHCO3 Instrument used: DermaBlade Hemostasis achieved with: electrodesiccation Outcome: patient tolerated procedure well Outcome comment: The specimen was placed in a prelabeled formalin container to be sent for pathology Post-procedure details: sterile dressing applied and wound care instructions given Post-procedure details comment: Emphasized need to contact clinic for any signs of infection, uncontrollable bleeding, or complications. Dressing type: bandage Additional details: Photo taken Amount of lidocaine used: 1.0 cc Specimen B - Dermatopathology exam Differential Diagnosis: BCC vs other Check Margins: No Size of lesion: 0.3 x 0.4 cm Left Forearm Erythematous hemorrhagic crusted papule Lesion biopsy Type of biopsy: tangential Informed consent: discussed and consent obtained Informed consent comment: The risks and benefits of the biopsy were discussed. Risks include but are not limited to bleeding, infection, scarring, pain, and nerve damage. An opportunity to ask questions prior to the procedure was permitted and all questions were answered. Patient was prepped and draped in usual sterile fashion: area cleansed with alcohol. Anesthesia: the lesion was anesthetized in a standard fashion Anesthetic: 1% lidocaine w/ epinephrine 1-100,000 buffered w/ 8.4% NaHCO3 Instrument used: DermaBlade Hemostasis achieved with: electrodesiccation Outcome: patient tolerated procedure well Outcome comment: The specimen was placed in a prelabeled formalin container to be sent for pathology Post-procedure details: sterile dressing applied and wound care instructions given Post-procedure details comment: Emphasized need to contact clinic for any signs of infection, uncontrollable bleeding, or complications. Dressing type: bandage Additional details: Photo taken Amount of lidocaine used: 1.0 cc Specimen C - Dermatopathology exam Differential Diagnosis: BCC vs SCC Check Margins: No Size of lesion: 1.2 x 0.7 cm Right Mid Back Irregularly pigmented papule Lesion biopsy Type of biopsy: tangential Informed consent: discussed and consent obtained Informed consent comment: The risks and benefits of the biopsy were discussed. Risks include but are not limited to bleeding, infection, scarring, pain, and nerve damage. An opportunity to ask questions prior to the procedure was permitted and all questions were answered. Patient was prepped and draped in usual sterile fashion: area cleansed with alcohol. Anesthesia: the lesion was anesthetized in a standard fashion Anesthetic: 1% lidocaine w/ epinephrine 1-100,000 buffered w/ 8.4% NaHCO3 Instrument used: DermaBlade Hemostasis achieved with: electrodesiccation Outcome: patient tolerated procedure well Outcome comment: The specimen was placed in a prelabeled formalin container to be sent for pathology Post-procedure details: sterile dressing applied and wound care instructions given Post-procedure details comment: Emphasized need to contact clinic for any signs of infection, uncontrollable bleeding, or complications. Dressing type: bandage Additional details: Photo taken Amount of lidocaine used: 1.0 cc Specimen D - Dermatopathology exam Differential Diagnosis: Dysplastic Nevus vs MM Check Margins: No Size of lesion: 0.7 x 0.4 cm Related Procedures Ambulatory referral to Dermatology Next Visit: 6 months skin check, pending biopsy results documented in this encounterFreeman Orthopaedics & Sports [id number] Instructions* Patient Instructions* Marta Salazar MD - 05/20/2024 12:11 PM EST Patient would like to try and save his right eye Would defer decision to patient and Dr. Fuchs Patient is light perception right eye Discussed if removal of eye likely would recc evisceration with implant Possible plan: Right eye evisceration with implant Right medial and lateral temporary tarsorrhaphy Right medial permanent tarsorrhaphy General 1 hr H/o polycythemia vera *discussed implant could get infected and come out either early or late *discussed patient has scarring may or may not be able to retain a prosthesis *h/o right conj malt lymphoma 2017, h/o radiation 2018 S/p corneal neurotization Avoid aspirin, ibuprofen, nsaids, vitamin e , fish oil 2 wks prior and 1 wk post Stop multivitamin, 2 wks prior and 1 wk post Stop aspirin 81 2 wks prior and 1 wk post if ok with medical doctor Can take arnica [place] 5 day prior and 5 days post; bromelain as well for swelling Nothing to eat or drink 8 hrs prior to surgery except medicines day of with small sip of water Will need stud driver if having sedation surgery No working for 1 week after surgery. For surgery [facility], call The patient was offered a surgery/procedure at a [facility]. The surgeon/proceduralist and patient have discussed in detail the risk of exposure to and/or potential harm posed by the COVID-19 virus with having a surgery/procedure at this time versus the risk of delaying the surgery/pr ocedure. It is not possible to know either the risk of delaying the surgery or procedure or chance of getting an infection with perfect accuracy, but a joint decision was made between the patient andthe surgeon/proceduralist to proceed at this time with the scheduled surgery/procedure as indicatedon the consent form. An extensive discussion of the risks, benefits, alternatives of the above surgeries was conducted with the patient. The patient understood the risks including, but not limited to: bleeding, infection, scarring, asymmetry, need for future additional surgery, poor cosmesis, worsening dry eyes, orbital hemorrhage causing loss of vision, nerve damage, muscle damage, double vision, complications of anesthesia including loss of life. Discussed with patient these surgeries in most cases are performed with resident and/or fellow participation at the level deemed fit by Dr. Salazar. Patient verbalizes an understanding. The patient wished to proceed with surgery. Post operative course reviewed. 1-2 wks of bruising and swelling. Ice compresses (ie: frozen peas in Ziploc bag with cloth between bag and skin) for15 min every hourfor the first 3 days after surgery; then warm compresses as needed for bruising (from post op days 3-7) Avoid blood thinners including aspirin, Advil, Motrin, Aleve, vitamin E, fish oil at least 2 wks prior to surgery. Antibiotic ointment to eyes and incisions four times a day after surgery for 1 week. No heavy lifting over 15 lbs or any strenuous exercise for 1 wk after surgery. Walking is okay after surgery. 2. Right upper lid trichiasis Recc epilation today , may need more permanent solution in future Discussed options: Manual epilation (repeat every 8 weeks) vs Radiofrequency ablation (may need multiple treatments, but more permanent solution) Patient would like epilation today Right upper lid MEDICATION TO DISCONTINUE PRIOR TO SURGERY ARE YOU TAKING BLOOD THINNERS? - BRING THIS TO THE DOCTOR'S ATTENTION Important information that must be followed prior to surgery: Many prescribed and over the counter medications cause thinning of the blood that may cause excess bleeding during or after your surgery. * Your primary care provider MUST approve the discontinuation of the following medications at the specified time prior to your surgery. * To minimize the risk of problems related to bleeding, we ask that you strictly adhere to the guidelines below. * If you have any questions regarding these or other medications that may thin the blood, please call our Preadmission testing Office at [phone] or [phone]. [phone]. Medication your doctor MUST approve to stop Medication to stop 2 weeks prior to surgery Arixtra (Fondaparinux) Aspirin (if prescribed) Brillinta (Ticagrelor Coumadin (Warfarin) Eliquis (Apixaban) Fragmin (Dalteparin) Heparin Innohep (Tinzaparin) Lovenox (Enoxaparin) Persantine (Dipyridamole) Plavix (Clopidogrel Bisulfate) Pletal (Ciloxtazol) Pradaxa (Dabigatran) Prasugrel (Effient) Ticlid (Ticlopidine Hydrochloride) Vorapaxar (Zontivity) Xarelto (Rivaroxaban) Advil (Ibuprofen) Aleve (Naproxen Sodium) Aspirin, Baby Aspirin (if not Prescribed) Eliza (Aspirin) Biotin (Vitamin H) Bufferin (Aspirin) Celebrex (Celecoxib) Excedrin (Migraine relief) Ecotrin (Aspirin) Garlic supplement Gingko (Ginkgo biloba) Glucosamine Chondroitin CoQ10 (Duraflex) Herbal extracts Ibuprofen (Caldoror) Indocin (Indomethacin) Meloxicam (Mobic, Vivlodex) Motrin (Ibuprofen) Multi-vitamins Nuprin (Ibuprofen) Naproxen (Naprosyn) Ocuvite (Androvite) Dakota 3, Krill oil, Fish oil, Flax seed oil Pamprin (Pamabrom) Preservision (AREDS) Trental (Pentoxifylline) Turmeric (Curcuma Longa) Vitamin E (Alpha tocopherol) Other HOLD 1 WEEK PRIOR TO SURGERY GLP-1 (John Paul, Romero, Silvia, Keyla, Twan Arboleda, Robb Coronado, Zepbound) documented in this encounterSelect Medical [facility]01-21-2025 NoteDate of Procedure 05/20/2024 [place] Protocol Safety Checklist Sign In: A moment to CARE completed, Special equipment verified, Appropriate PPE verified, Patient name, date of , allergies and intended procedure verified. Provider Confirms: Consent documented and matches the intended procedure, Correct side/site marked visible, Intended patient and procedure match the source document. No relevant labs, photos, and/or imaging studies to review. No medications required for procedure. No fire risk. No implants. Location Right upper lid. Procedure Notes Epilation of lash(es) was performed at slitlamp with forceps without complication. Sign Out Sign out discussion completed, All instruments, equipment, and/or possible retained foreign bodies accounted for, Post-procedure follow up management communicated. Specimen containers correctly labeled.[facility]01-21-2025 History of Present illness Narrative* Marta Salazar MD - 05/20/2024 10:15 AM EST Leaking right eye starting on the way here. Eye was glued shut four days ago. No pain today. 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 Bryant S/p Penetrating keratoplasty in a phakic right eye using a 8.5 mm host and 9.0 mm donor trephination 09/12/2017 - Dr. Fuchs S/p Revision of operative wound, anterior segment right eye, Multilayered sutured amniotic membranegraft, Right eye, Temporary lateral tarsorhhaphy, Right eye - 10/10/2017 - Dr. Fuchs S/p LLL hpg/rotation 01/17/2018 - JDP S/p LLL hpg/rotation 10/10/2018 - JDP s/p right orbitotomy for supraorbital nerve anastamoses with axogen donor graft for corneal neurotization, Right conjunctivoplasty, Right temporary tarsorrhaphy, Right permanent medial tarsorrhaphy, Right lower eyelid debulking hard palate graft [facility] [facility] S/p Penetrating keratoplasty in a phakic right eye using a 8.0 mm host and 8.5 mm donor trephination, Complex cataract extraction requiring mechanical dilation with iris hooks and capsular staining with trypan blue, right eye, Lysis of posterior iris synechiae, right eye, Anterior vitrectomy, righteye, Temporary tarsorrhaphy, right eye 05/23/21 - Dr. Fcuhs S/p eyelid surgeries with Dr. Cool and Dr. Nolen Saw Dr. Nolen 05/14/24 05/16/[address] Fuchs: pt felt gush of fluid and pain, attempted to glue, referred for evisceration B scan 08/31/22: Date of Procedure 08/31/2022. Data Miner Information DENIA Galo, NATALIA 08/31/2022 10:58 AM . Notes B scan OD: 1) Interval resolution in the serous choroidal detachments 360-degrees. 2) Interval decrease in the density of the vitreous opacities. Today, opacities are mild through the lid. Exam: Light perception right eye - MD verified Right upper lid ptosis with trichiasis/Right upper lid entropion 2+ injection right eye No julieta kun positive area but thinned cornea inferior/centrally <0.1 cm , no glue seen Tenderness right eye (difficult to lift eyelid due to sensitivity) Right lateral permanent tarsorrhaphy in place Neovascularization right cornea Trichiasis Right upper lid Patient would like to try and save his right eye Would defer decision to patient and Dr. Fuchs Patient is light perception right eye Discussed if removal of eye likely would recc evisceration with implant Discussed blind painful eye If can get pain under control can hold off on surgery If cannot get pain under control consider enucleation or evisceration, likely evisceration with implant Discussed post op course including significant pain for first 24-48 hrs, need to stay on top of thepain Also discussed patch x 1 week, return to clinic then remove patch In between eyelids will then look pink (like inside of mouth) and no eye. Then after 6-8 wks so swelling is reduced may go to truck and transport mechanic to get prosthesis made Patient could also see truck and transport mechanic prior to any surgery to get an idea of what it would look like (discusssed process is usually multiple days) While waiting for prosthesis some patients get a black patch or cover the side of the glasses Will likely look like a closed eyelid, usually wear conformer until prosthesis made Discussed risk of extrusion of implant (early or late), inability to retain prosthesis, prosthesis will not move completely like other eye (usually reduced movement), ptosis will likely stay after surgery (may be able to be addressed in future but may not be covered by insurance), discussed small risk of sympathetic ophthalmia (inflammation of fellow eye) after evisceration (patient has had previous eye surgeries in past) Patient understands May still have pain post operatively, but usually pain improved Possible plan: Right eye evisceration with implant Right medial and lateral temporary tarsorrhaphy Right medial permanent tarsorrhaphy General 1 hr + light perception right eye H/o polycythemia vera *discussed implant could get infected and come out either early or late --may have delayed healing 2/2 radiation *discussed patient has scarring may or may not be able to retain a prosthesis *h/o right conj malt lymphoma 2016, h/o radiation 2017 S/p corneal neurotization Avoid aspirin, ibuprofen, nsaids, vitamin e , fish oil 2 wks prior and 1 wk post Stop multivitamin, 2 wks prior and 1 wk post Stop aspirin 81 2 wks prior and 1 wk post if ok with medical doctor Can take arnica montana 5 day prior and 5 days post; bromelain as well for swelling Nothing to eat or drink 8 hrs prior to surgery except medicines day of with small sip of water Will need stud driver if having sedation surgery No working for 1 week after surgery. For surgery [facility], call The patient was offered a surgery/procedure at a [facility] facility. The surgeon/proceduralist and patient have discussed in detail the risk of exposure to and/or potential harm posed by the COVID-19 virus with having a surgery/procedure at this time versus the risk of delaying the surgery/pr ocedure. It is not possible to know either the risk of delaying the surgery or procedure or chance of getting an infection with perfect accuracy, but a joint decision was made between the patient andthe surgeon/proceduralist to proceed at this time with the scheduled surgery/procedure as indicatedon the consent form. An extensive discussion of the risks, benefits, alternatives of the above surgeries was conducted with the patient. The patient understood the risks including, but not limited to: bleeding, infection, scarring, asymmetry, need for future additional surgery, poor cosmesis, worsening dry eyes, orbital hemorrhage causing loss of vision, nerve damage, muscle damage, double vision, complications of anesthesia including loss of life. Discussed with patient these surgeries in most cases are performed with resident and/or fellow participation at the level deemed fit by Dr. Salazar. Patient verbalizes an understanding. The patient wished to proceed with surgery. Post operative course reviewed. 1-2 wks of bruising and swelling. Ice compresses (ie: frozen peas in Ziploc bag with cloth between bag and skin) for15 min every hourfor the first 3 days after surgery; then warm compresses as needed for bruising (from post op days 3-7) Avoid blood thinners including aspirin, Advil, Motrin, Aleve, vitamin E, fish oil at least 2 wks prior to surgery. Antibiotic ointment to eyes and incisions four times a day after surgery for 1 week. No heavy lifting over 15 lbs or any strenuous exercise for 1 wk after surgery. Walking is okay after surgery. 2. Right upper lid trichiasis Recc epilation today , may need more permanent solution in future Discussed options: Manual epilation (repeat every 8 weeks) vs Radiofrequency ablation (may need multiple treatments, but more permanent solution) Patient would like epilation today Right upper lid If need eyelid closure Right eyelid permanent tarsorrhaphy , possible multiple Possible right radiofrequency ablation of lashes or excision lash line with recession of lashes Mac 30 min Can take arnica montana 5 day prior and 5 days post; bromelain as well for swelling Nothing to eat or drink 8 hrs prior to surgery except medicines day of with small sip of water Will need stud driver if having sedation surgery No working for 1 week after surgery. For surgery [facility], call The patient was offered a surgery/procedure at a [facility] facility. The surgeon/proceduralist and patient have discussed in detail the risk of exposure to and/or potential harm posed by the COVID-19 virus with having a surgery/procedure at this time versus the risk of delaying the surgery/pr ocedure. It is not possible to know either the risk of delaying the surgery or procedure or chance of getting an infection with perfect accuracy, but a joint decision was made between the patient andthe surgeon/proceduralist to proceed at this time with the scheduled surgery/procedure as indicatedon the consent form. An extensive discussion of the risks, benefits, alternatives of the above surgeries was conducted with the patient. The patient understood the risks including, but not limited to: bleeding, infection, scarring, asymmetry, need for future additional surgery, poor cosmesis, worsening dry eyes, orbital hemorrhage causing loss of vision, nerve damage, muscle damage, double vision, complications of anesthesia including loss of life. Discussed with patient these surgeries in most cases are performed with resident and/or fellow participation at the level deemed fit by Dr. Salazar. Patient verbalizes an understanding. The patient wished to proceed with surgery. Post operative course reviewed. 1-2 wks of bruising and swelling. Ice compresses (ie: frozen peas in Ziploc bag with cloth between bag and skin) for15 min every hourfor the first 3 days after surgery; then warm compresses as needed for bruising (from post op days 3-7) Avoid blood thinners including aspirin, Advil, Motrin, Aleve, vitamin E, fish oil at least 2 wks prior to surgery. Antibiotic ointment to eyes and incisions four times a day after surgery for 1 week. No heavy lifting over 15 lbs or any strenuous exercise for 1 wk after surgery. Walking is okay after surgery. The documentation for this note was completed by Paula Sarmiento APRN, CNP acting as a scribe for Marta Salazar MD. 05/20/2024 12:01 PM. I have confirmed and edited as necessary the relevant HPI, ophthalmic history, ROS, and the neuro exam findings as obtained by others. I have seen and examined Mak Garces. I have discussed the case and the management of this patient's care with the Resident/Fellow, if applicable. I also have reviewed and agree with the assessment and plan as stated above and agree withall of its relevant components. I, Marta Salazar MD, personally performed the services described in this documentation. All medical record entries made by the scribe were at my direction and in my presence. I have reviewed the chart and discharge instructions (if applicable) and agree that the record reflects my personal performance and is accurate and complete. documented in this [facility] NoteHNO ID: [id number] Author: MARTA SALAZAR MD Service: ? Author Type: Physician Type: Progress Notes Filed: 05/20/2024 12:16 Note Text: Leaking right eye starting on the way here. Eye was glued shut four days ago. No pain today. 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 Bryant S/p Penetrating keratoplasty in a phakic right eye using a 8.5 mm host and 9.0 mm donor trephination 09/12/2017 - Dr. Fuchs S/p Revision of operative wound, anterior segment right eye, Multilayered sutured amniotic membrane graft, Right eye, Temporary lateral tarsorhhaphy, Right eye - 10/10/2017 - Dr. Fuhcs S/p LLL hpg/rotation 01/17/2018 - MICHAEL S/p LLL hpg/rotation 10/10/2018 - MICHAEL s/p right orbitotomy for supraorbital nerve anastamoses with axogen donor graft for corneal neurotization, Right conjunctivoplasty, Right temporary tarsorrhaphy, Right permanent medial tarsorrhaphy, Right lower eyelid debulking hard palate graft [facility] 06/10/20 S/p Penetrating keratoplasty in a phakic right eye using a 8.0 mm host and 8.5 mm donor trephination, Complex cataract extraction requiring mechanical dilation with iris hooks and capsular staining with trypan blue, right eye, Lysis of posterior iris synechiae, right eye, Anterior vitrectomy, right eye, Temporary tarsorrhaphy, right eye 05/23/21 - Dr. Fuchs S/p eyelid surgeries with Dr. Cool and Dr. Nolen Saw Dr. Nolen 05/14/24 05/16/[address] Fuchs: pt felt gush of fluid and pain, attempted to glue, referred for evisceration B scan 08/31/22: Date of Procedure 08/31/2022. Data Miner Information DENIA Galo ROUB 08/31/2022 10:58 AM . Notes B scan OD: 1) Interval resolution in the serous choroidal detachments 360-degrees. 2) Interval decrease in the density of the vitreous opacities. Today, opacities are mild through the lid. Exam: Light perception right eye - MD verified Right upper lid ptosis with trichiasis/Right upper lid entropion 2+ injection right eye No julieta kun positive area but thinned cornea inferior/centrally <0.1 cm , no glue seen Tenderness right eye (difficult to lift eyelid due to sensitivity) Right lateral permanent tarsorrhaphy in place Neovascularization right cornea Trichiasis Right upper lid Patient would like to try and save his right eye Would defer decision to patient and Dr. Fuchs Patient is light perception right eye Discussed if removal of eye likely would recc evisceration with implant Discussed blind painful eye If can get pain under control can hold off on surgery If cannot get pain under control consider enucleation or evisceration, likely evisceration with implant Discussed post op course including significant pain for first 24-48 hrs, need to stay on top of the pain Also discussed patch x 1 week, return to clinic then remove patch In between eyelids will then look pink (like inside of mouth) and no eye. Then after 6-8 wks so swelling is reduced may go to truck and transport mechanic to get prosthesis made Patient could also see truck and transport mechanic prior to any surgery to get an idea of what it would look like (discusssed process is usually multiple days) While waiting for prosthesis some patients get a black patch or cover the side of the glasses Will likely look like a closed eyelid, usually wear conformer until prosthesis made Discussed risk of extrusion of implant (early or late), inability to retain prosthesis, prosthesis will not move completely like other eye (usually reduced movement), ptosis will likely stay after surgery (may be able to be addressed in future but may not be covered by insurance), discussed small risk of sympathetic ophthalmia (inflammation of fellow eye) after evisceration (patient has had previous eye surgeries in past) Patient understands May still have pain post operatively, but usually pain improved Possible plan: Right eye evisceration with implant Right medial and lateral temporary tarsorrhaphy Right medial permanent tarsorrhaphy General 1 hr + light perception right eye H/o polycythemia vera *discussed implant could get infected and come out either early or late --may have delayed healing 2/2 radiation *discussed patient has scarring may or may not be able to retain a prosthesis *h/o right conj malt lymphoma 2016, h/o radiation 2017 S/p corneal neurotization Avoid aspirin, ibuprofen, nsaids, vitamin e , fish oil 2 wks prior and 1 wk post Stop multivitamin, 2 wks prior and 1 wk post Stop aspirin 81 2 wks prior and 1 wk post if ok with medical doctor Can take arnica montana 5 day prior and 5 days post; bromelain as well for swelling Nothing to eat or drink 8 hrs prior to surgery except medicines d (more content not included)...[facility]01-21-2025 History of Present illness Narrative* Holly Tang PA-C - 05/20/2024 9:00 AM EST PATIENT NAME: Mak Garces DATE: 05/20/2024 PRIMARY CARE PHYSICIAN: Dr. Romulo Clark OTHER PHYSICIANS: Dr. 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 INTERIM HISTORY: Mak returns for follow up. He remains on Hydrea 500 mg BID. He has been having more and more issues with his eye and he is seeing ophthalmology laer today to discuss surgery. He also has an appointment with dermatology for a spot on his left neck that his daughter says is getting bigger. MEDICATIONS: levocetirizine 5 mg tablet Take 5 mg by mouth. hydroxyurea (HYDREA) 500 mg capsule Take 1 capsule by mouth two times a day. cefTAZidime ophthlamic solution 5% (50 mg/mL) (IP-CPD) Use 1 Drop in the right eye two times a day. BABY ASPIRIN ORAL Take by mouth. erythromycin (ROMYCIN) 5 mg/gram (0.5 %) ophthalmic ointment apply into right eye at bedtime fluoride, sodium, (DENTA-GEL) 1.1 % gel use to BRUSH TEETH 3 to 5 MINUTES once daily polyvinyl alcohol-povidone (REFRESH) 1.4-0.6 % ophthalmic solution 1 drop into affected eye as needed ascorbic acid, vitamin C, (VITAMIN C) 500 mg tablet Take 1,000 mg by mouth once daily. levothyroxine (SYNTHROID) 150 mcg tablet Take 1 tablet by mouth once daily. fluticasone (FLONASE) 50 mcg/actuation nasal spray tamsulosin (FLOMAX) 0.4 mg Take 0.4 mg by mouth daily at bedtime. carboxymethylcellulose (REFRESH TEARS) 0.5 % drop Use 1 Drop in both eyes as needed. 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 PAST SURGICAL HISTORY: PAST SURGICAL HISTORY Procedure Laterality Date CHOLECYSTECTOMY 2011 EPILATION OF TRICHIASIS, FORCEPS Right 04/18/2023 EYE SURGERY HX Left 01/17/2018 CONJUNCTIVOPLASTY, RECONSTRUCTION CUL-DE-SAC W/ BUCCAL GRAFT (Left EYE SURGERY PROCEDURE Right 10/10/2017 REVISION OR REPAIR OPERATIVE WOUND EYE ANTERIOR SEGMENT MAJOR OR MINOR KERATOPLASTY PENTRG EXCEPT APHAKIA/PSEUDOPHAKIA Right 09/12/2017 PK (Penetrating Keratoplasty) OCULAR SURFACE RECONSTRUCTION AMNIOTIC MEMBRANE REFRACTIVE SURGERY OD (RIGHT EYE) 08/01/2023 REVIEW OF SYSTEMS: General: No weight loss, malaise or fevers. HEENT: Negative for frequent or significant headaches. No changes in hearing, no nose bleeds or other nasal problems. Positive right eye issues. Respiratory: Negative for cough, wheezing or shortness of breath. Cardiovascular: Negative for chest pain, leg swelling or palpitations. GI: Negative for abdominal discomfort, blood in stools or black stools or change in bowel habits. : No history of dysuria, frequency or incontinence. Musculoskeletal: Negative for joint pain or swelling, back pain and muscle pain. Skin: +skin changes, spot on left neck Hematology/Lymphology: Negative for prolonged bleeding, bruising easily or swollen nodes. Neuro: No history of headaches, syncope, paralysis, seizures or tremors. PHYSICAL EXAM: Vitals: BP 161/93 Pulse 82 Temp 36.6 C (97.9 F) (Temporal) Resp 16 Ht 188 cm (6' 2.02 ) Wt 124.7 kg (274 lb 14.6 oz) SpO2 99% BMI 35.28 kg/m ECOG 0 General: Alert and oriented, no distress, pleasant and cooperative. 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 LABORATORY DATA: Hemoglobin (g/dL) Date Value 05/20/2024 12.7 06/24/2021 12.1 Hematocrit (%) Date Value 05/20/2024 41.5 06/24/2021 40.2 WBC (k/uL) Date Value 05/20/2024 10.68 06/24/2021 15.87 Platelet Count (k/uL) Date Value 05/20/2024 325 06/24/2021 455 RADIOLOGY/OTHER STUDIES: 05/28/2017 MRI orbit IMPRESSION: Normal study. Known abnormality of orbital adnexa not appreciated on this examination. No intracranial masses. 05/11/2017 PET scan IMPRESSION: 1. HEAD/NECK: No FDG avid neoplastic process. No hypermetabolic mass, adenopathy, or fluid collection. 2. CHEST: No FDG avid neoplastic process. No hypermetabolic mass, adenopathy, or fluid collection. 3. ABDOMEN/PELVIS: No FDG avid neoplastic process. No hypermetabolic mass, adenopathy, or fluid collection. 4. EXTREMITIES/SKELETON: No FDG avid osseous process. ASSESSMENT/PLAN: 1. Polycythemia vera (HCC) - ICD9: 238.4, ICD10: D45 (primary diagnosis) Polycythemia vera initially diagnosed September 2014 after presenting with chronic thrombocytosis and leukocytosis (and iron deficiency at the time). Initial evaluation revealed a positive JAK2 mutation. Primary treatment with Hydrea and aspirin started at the time of diagnosis. Currently on Hydrea 500 mg twice daily since 05/02/2022. He also undergoes phlebotomy for hematocrit greater than 45%. Today his hematocrit is 41.5 % and he will not require a phlebotomy. He will continue Hydrea 500 mgBID and check his CBC in 6 weeks and return in 12 weeks for follow up and labs. 2. 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 Status post primary treatment with bilateral conjunctival radiation therapy completed June 2017 (24 Galindo in 12 fractions). He has had no evidence of recurrent lymphoma sincecompleting treatment, but has had multiple complications involving his eyes requiring multiple ophthalmologic procedures. He will follow-up with ophthalmology as scheduled today for possible surgery. 3. Acquired hypothyroidism - ICD9: 244.9, ICD10: E03.9 Stable on current medications, continue per PCP. Holly Tang PA-C I spent a total of 20 minutes on the date of the service which included preparing to see the patient, [id number] patient care, completing clinical documentation, performing a medically appropriate examination, counseling and educating the patient/family/caregiver, ordering medications, tests, or p rocedures, independently interpreting results (not separately reported), communicating results to the patient/family/caregiver, and care coordination (not separately reported). documented in this encounterSelect [facility] NoteHNO ID: [id number] Author: HOLLY TANG PA-C Service: ? Author Type: Physician Whiskey Proof Reader Type: Progress Notes Filed: 05/20/2024 08:51 Note Text: PATIENT NAME: Mak Garces DATE: 05/20/2024 PRIMARY CARE PHYSICIAN: Dr. Romulo Clark OTHER PHYSICIANS: Dr. 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 INTERIM HISTORY: Mak returns for follow up. He remains on Hydrea 500 mg BID. He has been having more and more issues with his eye and he is seeing ophthalmology laer today to discuss surgery. He also has an appointment with dermatology for a spot on his left neck that his daughter says is getting bigger. MEDICATIONS: levocetirizine 5 mg tablet Take 5 mg by mouth. hydroxyurea (HYDREA) 500 mg capsule Take 1 capsule by mouth two times a day. cefTAZidime ophthlamic solution 5% (50 mg/mL) (IP-CPD) Use 1 Drop in the right eye two times a day. BABY ASPIRIN ORAL Take by mouth. erythromycin (ROMYCIN) 5 mg/gram (0.5 %) ophthalmic ointment apply into right eye at bedtime fluoride, sodium, (DENTA-GEL) 1.1 % gel use to BRUSH TEETH 3 to 5 MINUTES once daily polyvinyl alcohol-povidone (REFRESH) 1.4-0.6 % ophthalmic solution 1 drop into affected eye as needed ascorbic acid, vitamin C, (VITAMIN C) 500 mg tablet Take 1,000 mg by mouth once daily. levothyroxine (SYNTHROID) 150 mcg tablet Take 1 tablet by mouth once daily. fluticasone (FLONASE) 50 mcg/actuation nasal spray tamsulosin (FLOMAX) 0.4 mg Take 0.4 mg by mouth daily at bedtime. carboxymethylcellulose (REFRESH TEARS) 0.5 % drop Use 1 Drop in both eyes as needed. 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 PAST SURGICAL HISTORY: PAST SURGICAL HISTORY Procedure Laterality Date CHOLECYSTECTOMY 2012 EPILATION OF TRICHIASIS, FORCEPS Right 04/18/2023 EYE SURGERY HX Left 01/17/2018 CONJUNCTIVOPLASTY, RECONSTRUCTION CUL-DE-SAC W/ BUCCAL GRAFT (Left EYE SURGERY PROCEDURE Right 10/10/2017 REVISION OR REPAIR OPERATIVE WOUND EYE ANTERIOR SEGMENT MAJOR OR MINOR KERATOPLASTY PENTRG EXCEPT APHAKIA/PSEUDOPHAKIA Right 09/12/2017 PK (Penetrating Keratoplasty) OCULAR SURFACE RECONSTRUCTION AMNIOTIC MEMBRANE REFRACTIVE SURGERY OD (RIGHT EYE) 08/01/2023 REVIEW OF SYSTEMS: General: No weight loss, malaise or fevers. HEENT: Negative for frequent or significant headaches. No changes in hearing, no nose bleeds or other nasal problems. Positive right eye issues. Respiratory: Negative for cough, wheezing or shortness of breath. Cardiovascular: Negative for chest pain, leg swelling or palpitations. GI: Negative for abdominal discomfort, blood in stools or black stools or change in bowel habits. : No history of dysuria, frequency or incontinence. Musculoskeletal: Negative for joint pain or swelling, back pain and muscle pain. Skin: +skin changes, spot on left neck Hematology/Lymphology: Negative for prolonged bleeding, bruising easily or swollen nodes. Neuro: No history of headaches, syncope, paralysis, seizures or tremors. PHYSICAL EXAM: Vitals: BP 161/93 Pulse 82 Temp 36.6 ?C (97.9 ?F) (Temporal) Resp 16 Ht 188 cm (6' 2.02 ) Wt 124.7 kg (274 lb 14.6 oz) SpO2 99% BMI 35.28 kg/m? ECOG 0 General: Alert and oriented, no distress, pleasant and cooperative. 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 LABORATORY DATA: Hemoglobin (g/dL) Date Value 05/20/2024 12.7 06/24/2021 12.1 Hematocrit (%) Date Value 05/20/2024 41.5 06/24/2021 40.2 WBC (k/uL) Date Value 05/20/2024 10.68 06/24/2021 15.87 Platelet Count (k/uL) Date Value 05/20/2024 325 06/24/2021 455 RADIOLOGY/OTHER STUDIES (more content not included)...[facility] 05-16-2024 NoteHNO ID: [id number] Author: MARIAM ROY MD Service: ? Author Type: Fellow Type: Progress Notes Filed: 05/17/2024 11:12 Note Text: Encounter Diagnosis ICD-10-CM 1. 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 S/P PKP (penetrating keratoplasty) Z94.7 3. Aphakia, right eye H27.01 4. 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 Presents today with gush of fluid OD, pain starting today. Saw his outside doc on Sunday, had lashes epilated, noted to have tarso opening up Today pain got worse and started leaking fluid Exam with appearance of pre-phtisis, minimal structures able to be visualized, deformed globe New 2.7mm oval shaped perforation inferocentrally, in area of trichiasis with lash touch to globe Plan: -Attempted further lash epilation today however difficulty given patient discomfort -Attempted to glue today, difficult gluing given significant eyelid tenderness, small palpebral opening, unable to place peds speculum - appears to have good effect right now. 30 min post glue application, patient is kun neg, feeling better, less pain -Unable to place BCL given above -Keep Ceftaz QID OD -Discussed options today with patient, Dr Fuchs also discussed over the phone - options such as attempting large diameter therapeutic PKP although very likely to fail, vs. consultation with oculoplastics team for evisceration with prosthesis eval given long standing hx of perforations and failed tarsos with pain -He would like to discuss with his and get back to us -Call if any worsening in pain or symptoms, patched today for more comfort given unable to place BCL -Dr Fuchs will call patient tomorrow Discussed with Dr Karlos Roy MD Fellow, Cornea, External Disease, and Refractive Surgery [facility], [facility]01-17-2025 History of Present illness Narrative* Mariam Roy MD - 05/16/2024 2:18 PM EST Encounter Diagnosis ICD-10-CM 1. 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 S/P PKP (penetrating keratoplasty) Z94.7 3. Aphakia, right eye H27.01 4. 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 Presents today with gush of fluid OD, pain starting today. Saw his outside doc on Sunday, had lashes epilated, noted to have tarso opening up Today pain got worse and started leaking fluid Exam with appearance of pre-phtisis, minimal structures able to be visualized, deformed globe New 2.7mm oval shaped perforation inferocentrally, in area of trichiatic lash touch to globe Plan: -Attempted to glue today, difficult gluing given significant eyelid tenderness, small palpebral opening, unable to place peds speculum - appears to have good effect right now. Currently is dry without leakage, feeling better, less pain -Unable to place BCL given above -Keep Ceftaz QID OD -Discussed today with patient, Dr Fuchs also discussed over the phone - regards to attempting largediameter PKP although very likely to fail, vs. consultation with oculoplastics team for evisceration with prosthesis eval -He would like to discuss with his and get back to us -Call if any worsening in pain or symptoms, patched today for more comfort given unable to place BCL -Dr Fuchs will call patient tomorrow Discussed with Dr Karlos Roy MD Fellow, Cornea, External Disease, and Refractive Surgery [facility], [facility] documented in [facility] encounter[facility] Telephone encounter Note * Telephone Encounter - Tere NievesJustoDeborah - 05/16/2024 10:24 AM EST Patient is on his way in and will be here around 12:30. He has been scheduled with instructions to page Dr. Roy. [facility]01-17-2025 Miscellaneous Notes* Telephone Encounter - Ruben Nieves - 05/16/2024 10:24 AM EST Patient is on his way in and will be here around 12:30. He has been scheduled with instructions to page Dr. Roy. * Telephone Encounter - Ruben Nieves - 05/16/2024 10:17 AM EST Update: OD has started leaking fluid * Telephone Encounter - Ruben Nieves - 05/16/2024 8:37 AM EST LV: 01/15/24 FV: 08/26/24 Phone: () Patient reports that since OD has been opened up he is having pain (2-3) he has been taking Tylenoland Advil on and off to help with pain. Office notes and photo's where requested from [facility], Dr. Reilly. Please advise. Gabo Fuchs MD filed at 01/15/2024 11:04 AM Status: Signed Encounter Diagnosis ICD-10-CM 1. 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 Trichiasis of right lower eyelid H02.052 Neurotrophic keratoconjunctivitis, right eye - linezolid/ceftaz eyedrops BID OD as ocean transportation intermediary prophylaxis - s/p PKP x4 (most recent 08/05/21) - vascularized graft but defer steroids as no benefit - Now s/p many repeat suture tarsorrhaphy OD (most recent 10/2023, Dr. Cool) - today with PEEs, no epi defect on graft. Trichiatic upper lashes. - continue ceftaz BID OD - return 6 months Shivam Carrero MD Ophthalmology Resident epilate LLL continue follow-up with Dr. Cool for trichiasis -- if possible would continue to remove lashes as much as tolerated follow-up me 6 months [facility] I have confirmed and edited as necessary the relevant ophthalmic history, ROS, and the neuro exam findings as obtained by others. I have seen and examined this patient. I have discussed the case and the management of this patient's care with the Resident/Fellow, if applicable. I also have reviewed and agree with the assessment and plan as stated above and agree with all of its relevant components. Gabo Fuchs MD documented in [facility] encounter[facility] Telephone encounter Note * Telephone Encounter - Ruben Nieves - 05/16/2024 10:17 AM EST Update: OD has started leaking fluid [facility]01-17-2025 Telephone encounter Note* Telephone Encounter - Ruben Nieves - 05/16/2024 8:37 AM EST LV: 01/15/24 FV: 08/26/24 Phone: () Patient reports that since OD has been opened up he is having pain (2-3) he has been taking Tylenoland Advil on and off to help with pain. Office notes and photo's where requested from [facility], Dr. Reilly. Please advise. Gabo Fuchs MD filed at 01/15/2024 11:04 AM Status: Signed Encounter Diagnosis ICD-10-CM 1. 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 Trichiasis of right lower eyelid H02.052 Neurotrophic keratoconjunctivitis, right eye - linezolid/ceftaz eyedrops BID OD as jail prophylaxis - s/p PKP x4 (most recent 08/05/21) - vascularized graft but defer steroids as no benefit - Now s/p many repeat suture tarsorrhaphy OD (most recent 10/2023, Dr. Cool) - today with PEEs, no epi defect on graft. Trichiatic upper lashes. - continue ceftaz BID OD - return 6 months Shivam Carrero MD Ophthalmology Resident epilate LLL continue follow-up with Dr. Cool for trichiasis -- if possible would continue to remove lashes as much as tolerated follow-up me 6 months [facility] I have confirmed and edited as necessary the relevant ophthalmic history, ROS, and the neuro exam findings as obtained by others. I have seen and examined this patient. I have discussed the case and the management of this patient's care with the Resident/Fellow, if applicable. I also have reviewed and agree with the assessment and plan as stated above and agree with all of its relevant components. Gabo Fuchs MD [facility]12-16-2024 Telephone encounter Note* Telephone Encounter - Taylor Khalil RN - 04/14/2024 11:55 AM EST Pt called upset stating, I am not able [facility] call [facility], and they won't send my prescription. [facility]. Pt has a refill available. Verified mailing address and phone with them,while pt was also called to verify everything. Pt will receive medication in 3-5 days. Pt reports he has approximately 10 left on hand. Should pt have any problems in the future, please call [phone] (customer service) Taylor Khalil RN [facility]12-16-2024 Miscellaneous Notes* Telephone Encounter - Taylor Khalil RN - 04/14/2024 11:55 AM EST Pt called upset stating, I am not able to [facility], and they won't send my prescription. [facility]. Pt has a refill available. Verified mailing address and phone with them,while pt was also called to verify everything. Pt will receive medication in 3-5 days. Pt reports he has approximately 10 left on hand. Should pt have any problems in the future, please call [phone] (customer service) Taylor Khalil RN documented in [facility] encounter[facility]24 Telephone encounter Note * Telephone Encounter - Taylor Khalil RN - 04/08/2024 9:36 AM EST Pt waited for results following lab draw and aware no need at this time for phlebotomy. Taylor Khalil RN [facility]12-10-2024 Telephone encounter Note* Telephone Encounter - Taylor Khalil RN - 04/08/2024 9:36 AM EST ----- Message from Holly Tang PA-C sent at 04/08/2024 9:27 AM EST ----- Please call with hct results. No phleb at this time. [facility]12-10-2024 Miscellaneous Notes* Telephone Encounter - Taylor Khalil RN - 04/08/2024 9:36 AM EST Pt waited for results following lab draw and aware no need at this time for phlebotomy. Taylor Khalil RN * Telephone Encounter - Taylor Khalil RN - 04/08/2024 9:36 AM EST ----- Message from Holly Tang PA-C sent at 04/08/2024 9:27 AM EST ----- Please call with hct results. No phleb at this time. documented in this encounterSelect [facility]-29-2024 NoteHNO ID: [id number] Author: NASIR GARRETT RN Service: ? Author Type: Registered Nurse Type: Progress Notes Filed: 02/26/2024 10:43 Note Text: OBS complete. Patient notes that he will have his daughter check his BP later today noting that he was taken off of BP meds per PCP. Patient denies any symptoms and discharged home. Nasir Garrett RN[facility] History of Present illness Narrative* Nasir Garrett RN - 02/26/2024 10:02 AM EDT OBS complete. Patient notes that he will have his daughter check his BP later today noting that he was taken off of BP meds per PCP. Patient denies any symptoms and discharged home. Nasir Garrett RN documented in this encounterSelect [facility] History of Present illness Narrative* Holly Tang PA-C - 02/26/2024 8:30 AM EDT PATIENT NAME: Mak Garces DATE: 02/26/2024 PRIMARY CARE PHYSICIAN: Dr. Romulo Clark OTHER PHYSICIANS: Dr. 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 INTERIM HISTORY: Mak returns today for follow up. His eye is still healing, follows up with Ophthalmology twice a year. His vision remains the same. He has no new issues. He still has skin lesionsfrom the Hydrea that he reports are mildly pruritic. He remains on Hydrea 500 mg twice a day. MEDICATIONS: hydroxyurea (HYDREA) 500 mg capsule Take 1 capsule by mouth two times a day. cefTAZidime ophthlamic solution 5% (50 mg/mL) (IP-CPD) Use 1 Drop in the right eye two times a day. BABY ASPIRIN ORAL Take by mouth. erythromycin (ROMYCIN) 5 mg/gram (0.5 %) ophthalmic ointment apply into right eye at bedtime fluoride, sodium, (DENTA-GEL) 1.1 % gel use to BRUSH TEETH 3 to 5 MINUTES once daily polyvinyl alcohol-povidone (REFRESH) 1.4-0.6 % ophthalmic solution 1 drop into affected eye as needed ascorbic acid, vitamin C, (VITAMIN C) 500 mg tablet Take 1,000 mg by mouth once daily. levothyroxine (SYNTHROID) 150 mcg tablet Take 1 tablet by mouth once daily. fluticasone (FLONASE) 50 mcg/actuation nasal spray tamsulosin (FLOMAX) 0.4 mg Take 0.4 mg by mouth daily at bedtime. carboxymethylcellulose (REFRESH TEARS) 0.5 % drop Use 1 Drop in both eyes as needed. 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 PAST SURGICAL HISTORY: PAST SURGICAL HISTORY Procedure Laterality Date CHOLECYSTECTOMY 2012 EPILATION OF TRICHIASIS, FORCEPS Right 04/18/2023 EYE SURGERY HX Left 01/17/2018 CONJUNCTIVOPLASTY, RECONSTRUCTION CUL-DE-SAC W/ BUCCAL GRAFT (Left EYE SURGERY PROCEDURE Right 10/10/2017 REVISION OR REPAIR OPERATIVE WOUND EYE ANTERIOR SEGMENT MAJOR OR MINOR KERATOPLASTY PENTRG EXCEPT APHAKIA/PSEUDOPHAKIA Right 09/12/2017 PK (Penetrating Keratoplasty) OCULAR SURFACE RECONSTRUCTION AMNIOTIC MEMBRANE REFRACTIVE SURGERY OD (RIGHT EYE) 08/01/2023 REVIEW OF SYSTEMS: General: No weight loss, malaise or fevers. HEENT: Negative for frequent or significant headaches. No changes in hearing, no nose bleeds or other nasal problems. Positive right eye issues. Respiratory: Negative for cough, wheezing or shortness of breath. Cardiovascular: Negative for chest pain, leg swelling or palpitations. GI: Negative for abdominal discomfort, blood in stools or black stools or change in bowel habits. : No history of dysuria, frequency or incontinence. Musculoskeletal: Negative for joint pain or swelling, back pain and muscle pain. Skin: +skin changes Hematology/Lymphology: Negative for prolonged bleeding, bruising easily or swollen nodes. Neuro: No history of headaches, syncope, paralysis, seizures or tremors. PHYSICAL EXAM: Vitals: BP 151/94 Pulse 84 Temp 36.5 C (97.7 F) (Temporal) Resp 16 Ht 188 cm (6' 2.02 ) Wt 124 kg (273 lb 5.9 oz) SpO2 99% BMI 35.08 kg/m ECOG 0 General: Alert and oriented, no distress, pleasant and cooperative. Heart: Regular, normal S1 and S2, no murmurs, rubs, or gallops Lungs: Clear to auscultation bilaterally Abdomen: Benign Extremities: Feet/ankles without edema, posterior tibial pulses full and symmetrical PATHOLOGY: 04/16/2017 Biopsy right eye conjunctiva Small B cell neoplasm best classified as extranodal marginal zone lymphoma. LABORATORY DATA: Hemoglobin (g/dL) Date Value 02/26/2024 14.1 06/24/2021 12.1 Hematocrit (%) Date Value 02/26/2024 45.5 06/24/2021 40.2 WBC (k/uL) Date Value 02/26/2024 9.74 06/24/2021 15.87 Platelet Count (k/uL) Date Value 02/26/2024 416 06/24/2021 455 RADIOLOGY/OTHER STUDIES: 05/28/2017 MRI orbit IMPRESSION: Normal study. Known abnormality of orbital adnexa not appreciated on this examination. No intracranial masses. 05/11/2017 PET scan IMPRESSION: 1. HEAD/NECK: No FDG avid neoplastic process. No hypermetabolic mass, adenopathy, or fluid collection. 2. CHEST: No FDG avid neoplastic process. No hypermetabolic mass, adenopathy, or fluid collection. 3. ABDOMEN/PELVIS: No FDG avid neoplastic process. No hypermetabolic mass, adenopathy, or fluid collection. 4. EXTREMITIES/SKELETON: No FDG avid osseous process. ASSESSMENT/PLAN: 1. Polycythemia vera (HCC) - ICD9: 238.4, ICD10: D45 (primary diagnosis) Polycythemia vera initially diagnosed September 2014 after presenting with chronic thrombocytosis and leukocytosis (and iron deficiency at the time). Initial evaluation revealed a positive JAK2 mutation. Primary treatment with Hydrea and aspirin started at the time of diagnosis. Currently on Hydrea 500 mg twice daily since 05/02/2022. He also undergoes phlebotomy for hematocrit greater than 45%. Today his hematocrit is 45.5% and he will require a phlebotomy. He will continue Hydrea 500 mg BID and check his CBC in 6 weeks and return in 12 weeks for follow up and labs. 2. 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 Status post primary treatment with bilateral conjunctival radiation therapy completed June 2017 (24 Galindo in 12 fractions). He has had no evidence of recurrent lymphoma sincecompleting treatment, but has had multiple complications involving his eyes requiring multiple ophthalmologic procedures. He will follow-up with ophthalmology as scheduled, next appointment is July 2024. 3. Acquired hypothyroidism - ICD9: 244.9, ICD10: E03.9 Stable on current medications, continue per PCP. ALIRIO Loving-S2 The patient was seen and examined by me. The student's note was modified if appropriate. Holly Tang PA-C I spent a total of 20 minutes on the date of the service which included preparing to see the patient, [id number] patient care, completing clinical documentation, performing a medically appropriate examination, counseling and educating the patient/family/caregiver, ordering medications, tests, or p rocedures, independently interpreting results (not separately reported), communicating results to the patient/family/caregiver, and care coordination (not separately reported). documented in this encounterSelect [facility]24 NoteHNO ID: [id number] Author: HOLLY TANG PA-C Service: ? Author Type: Physician Whiskey Proof Reader Type: Progress Notes Filed: 02/26/2024 09:07 Note Text: PATIENT NAME: Mak Garces DATE: 02/26/2024 PRIMARY CARE PHYSICIAN: Dr. Romulo Clark OTHER PHYSICIANS: Dr. 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 INTERIM HISTORY: Mak returns today for follow up. His eye is still healing, follows up with Ophthalmology twice a year. His vision remains the same. He has no new issues. He still has skin lesions from the Hydrea that he reports are mildly pruritic. He remains on Hydrea 500 mg twice a day. MEDICATIONS: hydroxyurea (HYDREA) 500 mg capsule Take 1 capsule by mouth two times a day. cefTAZidime ophthlamic solution 5% (50 mg/mL) (IP-CPD) Use 1 Drop in the right eye two times a day. BABY ASPIRIN ORAL Take by mouth. erythromycin (ROMYCIN) 5 mg/gram (0.5 %) ophthalmic ointment apply into right eye at bedtime fluoride, sodium, (DENTA-GEL) 1.1 % gel use to BRUSH TEETH 3 to 5 MINUTES once daily polyvinyl alcohol-povidone (REFRESH) 1.4-0.6 % ophthalmic solution 1 drop into affected eye as needed ascorbic acid, vitamin C, (VITAMIN C) 500 mg tablet Take 1,000 mg by mouth once daily. levothyroxine (SYNTHROID) 150 mcg tablet Take 1 tablet by mouth once daily. fluticasone (FLONASE) 50 mcg/actuation nasal spray tamsulosin (FLOMAX) 0.4 mg Take 0.4 mg by mouth daily at bedtime. carboxymethylcellulose (REFRESH TEARS) 0.5 % drop Use 1 Drop in both eyes as needed. 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 PAST SURGICAL HISTORY: PAST SURGICAL HISTORY Procedure Laterality Date CHOLECYSTECTOMY 2011 EPILATION OF TRICHIASIS, FORCEPS Right 04/18/2023 EYE SURGERY HX Left 01/17/2018 CONJUNCTIVOPLASTY, RECONSTRUCTION CUL-DE-SAC W/ BUCCAL GRAFT (Left EYE SURGERY PROCEDURE Right 10/10/2017 REVISION OR REPAIR OPERATIVE WOUND EYE ANTERIOR SEGMENT MAJOR OR MINOR KERATOPLASTY PENTRG EXCEPT APHAKIA/PSEUDOPHAKIA Right 09/12/2017 PK (Penetrating Keratoplasty) OCULAR SURFACE RECONSTRUCTION AMNIOTIC MEMBRANE REFRACTIVE SURGERY OD (RIGHT EYE) 08/01/2023 REVIEW OF SYSTEMS: General: No weight loss, malaise or fevers. HEENT: Negative for frequent or significant headaches. No changes in hearing, no nose bleeds or other nasal problems. Positive right eye issues. Respiratory: Negative for cough, wheezing or shortness of breath. Cardiovascular: Negative for chest pain, leg swelling or palpitations. GI: Negative for abdominal discomfort, blood in stools or black stools or change in bowel habits. : No history of dysuria, frequency or incontinence. Musculoskeletal: Negative for joint pain or swelling, back pain and muscle pain. Skin: +skin changes Hematology/Lymphology: Negative for prolonged bleeding, bruising easily or swollen nodes. Neuro: No history of headaches, syncope, paralysis, seizures or tremors. PHYSICAL EXAM: Vitals: BP 151/94 Pulse 84 Temp 36.5 ?C (97.7 ?F) (Temporal) Resp 16 Ht 188 cm (6' 2.02 ) Wt 124 kg (273 lb 5.9 oz) SpO2 99% BMI 35.08 kg/m? ECOG 0 General: Alert and oriented, no distress, pleasant and cooperative. Heart: Regular, normal S1 and S2, no murmurs, rubs, or gallops Lungs: Clear to auscultation bilaterally Abdomen: Benign Extremities: Feet/ankles without edema, posterior tibial pulses full and symmetrical PATHOLOGY: 04/16/2017 Biopsy right eye conjunctiva Small B cell neoplasm best classified as extranodal marginal zone lymphoma. LABORATORY DATA: Hemoglobin (g/dL) Date Value 02/26/2024 14.1 06/24/2021 12.1 Hematocrit (%) Date Value 02/26/2024 45.5 06/24/2021 40.2 WBC (k/uL) Date Value 02/26/2024 9.74 06/24/2021 15.87 Platelet Count (k/uL) Date Value 02/26/2024 416 06/24/2021 455 RADIOLOGY/OTHER STUDIES: 05/28/2017 MRI orbit IMPRESSION: Normal study. Known abnormality of orbital adnexa not appreciated on this examination. No intracranial masses. 05/11/2017 PE (more content not included)...[facility]09-17-2024 NoteDate of Procedure 01/15/2024 [place] Protocol Safety Checklist Sign In: Patient name, date of , allergies and intended procedure verified. Provider Confirms: Correct side/site marked visible. No relevant labs, photos, and/or imaging studies to review. No medications required for procedure. No fire risk. No implants. Location Left lower lid. Procedure Notes Epilation of lash(es) was performed at slitlamp with forceps without complication. Sign Out Sign out discussion completed, All instruments, equipment, and/or possible retained foreign bodies accounted for, Post-procedure follow up management communicated. No specimens.[facility] History of Present illness Narrative* Gabo Fuchs MD - 01/15/2024 10:24 AM EDT Encounter Diagnosis ICD-10-CM 1. 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 Trichiasis of right lower eyelid H02.052 Neurotrophic keratoconjunctivitis, right eye - linezolid/ceftaz eyedrops BID OD as ocean transportation intermediary prophylaxis - s/p PKP x4 (most recent 08/05/21) - vascularized graft but defer steroids as no benefit - Now s/p many repeat suture tarsorrhaphy OD (most recent 10/2023, Dr. Cool) - today with PEEs, no epi defect on graft. Trichiatic upper lashes. - continue ceftaz BID OD - return 6 months Shivam Carrero MD Ophthalmology Resident epilate LLL continue follow-up with Dr. Cool for trichiasis -- if possible would continue to remove lashes as much as tolerated follow-up me 6 months va iop [facility] I have confirmed and edited as necessary the relevant ophthalmic history, ROS, and the neuro exam findings as obtained by others. I have seen and examined this patient. I have discussed the case and the management of this patient's care with the Resident/Fellow, if applicable. I also have reviewed and agree with the assessment and plan as stated above and agree with all of its relevant components. Gabo Fuchs MD documented in this encounter[facility] Telephone encounter Note * Telephone Encounter - Evelyn Brush RN - 01/04/2024 3:56 PM EDT Patient phones requesting refills as follows: Requested Prescriptions Pending Prescriptions Disp Refills hydroxyurea (HYDREA) 500 mg capsule 180 capsule 3 Sig: Take 1 capsule by mouth two times a day. Please review and advise. Pt calls stating he needs [facility] due to his insurance changing. Please sign pending script. Evelyn Addison RN [facility]09-06-2024 Miscellaneous Notes* Telephone Encounter - Evelyn Brush RN - 01/04/2024 3:56 PM EDT Patient phones requesting refills as follows: Requested Prescriptions Pending Prescriptions Disp Refills hydroxyurea (HYDREA) 500 mg capsule 180 capsule 3 Sig: Take 1 capsule by mouth two times a day. Please review and advise. Pt calls stating he needs his scripts [facility] now due to his insurance changing. Please sign pending script. Thanks, Evelyn Brush RN documented in this encounterSelect [facility] History of Present illness Narrative* Sharonda Tesfaye RN - 11/28/2023 10:08 AM EDTSummary: Phlebotomy Pt presents ambulatory alone for phlebotomy. Hct 45. Pt given apple juice and protein bar prior to phlebotomy. Phlebotomy initiated to right arm without complications. See IV assessment. 500cc blood removed and discarded. Pt denied any dizziness or complaints throughout phlebotomy. See VS. IV removed intact. Pressure dressing applied. Pt instructed to avoid heavy lifting with right arm and to drink plenty of fluids over the next 24-48 hours. Pt verbalized understanding. Ricki Tesfaye RN,BSN,OCN documented in this encounterSelect [facility] History of Present illness Narrative* Holly Tang PA-C - 11/28/2023 10:00 AM EDT PATIENT NAME: Mak Garces DATE: 11/28/2023 PRIMARY CARE PHYSICIAN: Dr. Romulo Clark OTHER PHYSICIANS: Dr. Gabo Fuchs ([facility] Ophthalmology) (Elements copied from Dr. 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 INTERIM HISTORY: Mak returns today for follow up. His eye is still healing. His vision remains the same. He has no new issues. He still has skin lesions from the Hydrea and constipation. Her remains on Hydrea 500 mg twice a day. MEDICATIONS: cefTAZidime ophthlamic solution 5% (50 mg/mL) (IP-CPD) Use 1 Drop in the right eye two times a day. linezolid ophthalmic solution 0.2% (IP-CPD) Use 1 Drop in the right eye two times a day. hydroxyurea (HYDREA) 500 mg capsule Take 1 capsule by mouth two times a day. BABY ASPIRIN ORAL Take by mouth. erythromycin (ROMYCIN) 5 mg/gram (0.5 %) ophthalmic ointment apply into right eye at bedtime (Patient not taking: Reported on 10/02/2023) fluoride, sodium, (DENTA-GEL) 1.1 % gel use to BRUSH TEETH 3 to 5 MINUTES once daily polyvinyl alcohol-povidone (REFRESH) 1.4-0.6 % ophthalmic solution 1 drop into affected eye as needed ascorbic acid, vitamin C, (VITAMIN C) 500 mg tablet Take 1,000 mg by mouth once daily. levothyroxine (SYNTHROID) 150 mcg tablet Take 1 tablet by mouth once daily. fluticasone (FLONASE) 50 mcg/actuation nasal spray tamsulosin (FLOMAX) 0.4 mg Take 0.4 mg by mouth daily at bedtime. carboxymethylcellulose (REFRESH TEARS) 0.5 % drop Use 1 Drop in both eyes as needed. 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 PAST SURGICAL HISTORY: PAST SURGICAL HISTORY Procedure Laterality Date CHOLECYSTECTOMY 2012 EPILATION OF TRICHIASIS, FORCEPS Right 04/18/2023 EYE SURGERY HX Left 01/17/2018 CONJUNCTIVOPLASTY, RECONSTRUCTION CUL-DE-SAC W/ BUCCAL GRAFT (Left EYE SURGERY PROCEDURE Right 10/10/2017 REVISION OR REPAIR OPERATIVE WOUND EYE ANTERIOR SEGMENT MAJOR OR MINOR KERATOPLASTY PENTRG EXCEPT APHAKIA/PSEUDOPHAKIA Right 09/12/2017 PK (Penetrating Keratoplasty) OCULAR SURFACE RECONSTRUCTION AMNIOTIC MEMBRANE REFRACTIVE SURGERY OD (RIGHT EYE) 08/01/2023 REVIEW OF SYSTEMS: General: No weight loss, malaise or fevers. HEENT: Negative for frequent or significant headaches. No changes in hearing, no nose bleeds or other nasal problems. Positive right eye issues. Respiratory: Negative for cough, wheezing or shortness of breath. Cardiovascular: Negative for chest pain, leg swelling or palpitations. GI: Negative for abdominal discomfort, blood in stools or black stools or change in bowel habits. +constipation : No history of dysuria, frequency or incontinence. Musculoskeletal: Negative for joint pain or swelling, back pain and muscle pain. Skin: +skin changes Hematology/Lymphology: Negative for prolonged bleeding, bruising easily or swollen nodes. Neuro: No history of headaches, syncope, paralysis, seizures or tremors. PHYSICAL EXAM: Vitals: BP 163/94 Pulse 75 Temp 36.7 C (98 F) (Temporal) Resp 16 Ht 188 cm (6' 2.02 ) Wt 121.8 kg (268 lb 8.3 oz) SpO2 97% BMI 34.46 kg/m ECOG 0 General: Alert and oriented, no distress, pleasant and cooperative. Heart: Regular, normal S1 and S2, no murmurs, rubs, or gallops Lungs: Clear to auscultation bilaterally Abdomen: Benign Extremities: Feet/ankles without edema, posterior tibial pulses full and symmetrical PATHOLOGY: 04/16/2017 Biopsy right eye conjunctiva Small B cell neoplasm best classified as extranodal marginal zone lymphoma. LABORATORY DATA: Hemoglobin (g/dL) Date Value 11/28/2023 14.0 06/24/2021 12.1 Hematocrit (%) Date Value 11/28/2023 45.0 06/24/2021 40.2 WBC (k/uL) Date Value 11/28/2023 11.29 06/24/2021 15.87 Platelet Count (k/uL) Date Value 11/28/2023 295 06/24/2021 455 RADIOLOGY/OTHER STUDIES: 05/28/2017 MRI orbit IMPRESSION: Normal study. Known abnormality of orbital adnexa not appreciated on this examination. No intracranial masses. 05/11/2017 PET scan IMPRESSION: 1. HEAD/NECK: No FDG avid neoplastic process. No hypermetabolic mass, adenopathy, or fluid collection. 2. CHEST: No FDG avid neoplastic process. No hypermetabolic mass, adenopathy, or fluid collection. 3. ABDOMEN/PELVIS: No FDG avid neoplastic process. No hypermetabolic mass, adenopathy, or fluid collection. 4. EXTREMITIES/SKELETON: No FDG avid osseous process. ASSESSMENT/PLAN: 1. Polycythemia vera (HCC) - ICD9: 238.4, ICD10: D45 (primary diagnosis) Polycythemia vera initially diagnosed September 2014 after presenting with chronic thrombocytosis and leukocytosis (and iron deficiency at the time). Initial evaluation revealed a positive JAK2 mutation. Primary treatment with Hydrea and aspirin started at the time of diagnosis. Currently on Hydrea 500 mg twice daily since 05/02/2022. He also undergoes phlebotomy for hematocrit greater than 45%. Today his hematocrit is 45% and he will require a phlebotomy. He will continue Hydrea 500 mg BID and check his CBC in 6 weeks and return in 12 weeks for follow up and labs. 2. 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 Status post primary treatment with bilateral conjunctival radiation therapy completed June 2017 (24 Galindo in 12 fractions). He has had no evidence of recurrent lymphoma sincecompleting treatment, but has had multiple complications involving his eyes requiring multiple ophthalmologic procedures. He will follow-up with ophthalmology as scheduled. 3. Acquired hypothyroidism - ICD9: 244.9, ICD10: E03.9 Stable on current medications, continue per PCP. Holly Tang PA-C I spent a total of 20 minutes on the date of the service which included preparing to see the patient, [id number] patient care, completing clinical documentation, performing a medically appropriate examination, counseling and educating the patient/family/caregiver, ordering medications, tests, or p rocedures, independently interpreting results (not separately reported), communicating results to the patient/family/caregiver, and care coordination (not separately reported). documented in this encounter[facility] Telephone encounter Note * Telephone Encounter - Janett Herron MA - 2023 12:50 PM EDT Labs needed for appt on 11/27? Janett Herron MA [facility]07-26-2024 Miscellaneous Notes* Telephone Encounter - Janett Herron MA - 2023 12:50 PM EDT Labs needed for appt on 11/27? Janett Herron MA documented in this encounterSelect [facility] History of Present illness Narrative* Shaheen Friend RN - 10/09/2023 8:35 AM EDT Hct 44.5- no phlebotomy needed today. CBC printed and pt notified. documented in this encounterSelect [facility]24 NoteDate of Procedure 10/03/2023 [place] Protocol Safety Checklist Sign In: Patient name, date of , allergies and intended procedure verified. Provider Confirms: Correct side/site marked visible. No relevant labs, photos, and/or imaging studies to review. No medications required for procedure. No fire risk. No implants. Location Left lower lid. Procedure Notes Epilation of lash(es) was performed at slitlamp with forceps without complication. Sign Out Sign out discussion completed, All instruments, equipment, and/or possible retained foreign bodies accounted for, Post-procedure follow up management communicated. No specimens.[facility] History of Present illness Narrative* Gabo Fuchs MD - 10/04/2023 5:44 AM EDT Encounter Diagnosis ICD-10-CM 1. 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 Cool) tarsorrhaphy is coming loose again -- patient seeing Dr. Cool tomorrow, possibly may have further revision ulcer healed without injection -- okay to decrease linezolid/ceftaz to BID OD and continue longtermprophylaxis epilate LLL today follow-up 4-6 months next visit va iop ou DFE OS I have confirmed and edited as necessary the relevant ophthalmic history, ROS, and the neuro exam findings as obtained by others. I have seen and examined this patient. I have discussed the case and the management of this patient's care with the Resident/Fellow, if applicable. I also have reviewed and agree with the assessment and plan as stated above and agree with all of its relevant components. Gabo Fuchs MD documented in this encounterSelect [facility] History of Present illness Narrative* Mario Siddiqui MD - 08/27/2023 8:49 PM EDT PATIENT NAME: Mak Garces DATE: 08/28/2023 PRIMARY CARE PHYSICIAN: Dr. Romulo Clark OTHER PHYSICIANS: Dr. Gabo Fuchs ([facility] Ophthalmology) Portions of this encounter note have been copied from the note from 06/05/2023 and has been updated where appropriate, and reflect my current medical decision making from today. 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 INTERIM HISTORY: Since the patient's last visit here he underwent surgery on his right eye (surgery#[id number]). He still has blurred vision, otherwise stable. No other new medical problems. He remains on Hydrea 500 mg twice daily and is tolerating it well. MEDICATIONS: cefTAZidime ophthlamic solution 5% (50 mg/mL) (IP-CPD) Use 1 drop in right eye every 2 hours as directed linezolid ophthalmic solution 0.2% (IP-CPD) Use 1 drop in the right eye every 2 hours cefTAZidime ophthlamic solution 5% (50 mg/mL) (IP-CPD) Use 1 Drop in the right eye every 2 hours. linezolid ophthalmic solution 0.2% (IP-CPD) Use 1 Drop in the right eye every 2 hours. BABY ASPIRIN ORAL Take by mouth. hydroxyurea (HYDREA) 500 mg capsule Take 1 capsule by mouth two times a day. moxifloxacin (VIGAMOX) 0.5 % ophthalmic solution instill 1 drop into right eye three times a day erythromycin (ROMYCIN) 5 mg/gram (0.5 %) ophthalmic ointment apply into right eye at bedtime fluoride, sodium, (DENTA-GEL) 1.1 % gel use to BRUSH TEETH 3 to 5 MINUTES once daily polyvinyl alcohol-povidone (REFRESH) 1.4-0.6 % ophthalmic solution 1 drop into affected eye as needed ascorbic acid, vitamin C, (VITAMIN C) 500 mg tablet Take 1,000 mg by mouth once daily. olmesartan (BENICAR) 40 mg tablet 0.5 tablets once daily. (Patient not taking: Reported on 07/20/2023) levothyroxine (SYNTHROID) 150 mcg tablet Take 1 tablet by mouth once daily. fluticasone (FLONASE) 50 mcg/actuation nasal spray tamsulosin (FLOMAX) 0.4 mg Take 0.4 mg by mouth daily at bedtime. carboxymethylcellulose (REFRESH TEARS) 0.5 % drop Use 1 Drop in both eyes as needed. 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 HEENT: Negative for frequent or significant headaches. No changes in hearing, no nose bleeds or other nasal problems. Positive right eye issues. Respiratory: Negative for cough, wheezing or shortness of breath. Cardiovascular: Negative for chest pain, leg swelling or palpitations. GI: Negative for abdominal discomfort, blood in stools or black stools or change in bowel habits. : No history of dysuria, frequency or incontinence. Musculoskeletal: Negative for joint pain or swelling, back pain and muscle pain. Skin: Negative for lesions, rash and itching. Hematology/Lymphology: Negative for prolonged bleeding, bruising easily or swollen nodes. Neuro: No history of headaches, syncope, paralysis, seizures or tremors. PHYSICAL EXAM: Vitals: BP 134/87 Pulse 81 Temp 36.2 C (97.1 F) (Temporal) Resp 18 Ht 188 cm (6' 2.02 ) Wt 123.2 kg (271 lb 9.7 oz) SpO2 95% BMI 34.86 kg/m ECOG 0 Exam limited to gross visualization where appropriate due to COVID-19. Gen.: This is an age-appropriate patient in no acute distress. Head: Appears atraumatic with no visible lesions. Eyes: Right eye red. Neck: Supple. Mouth: Masked. Respiratory: Appears to be respiring comfortably. Neurologic: Nonfocal to gross visualization. Alert and oriented 3. Psychiatric: No evidence of inappropriate anxiety or depression. Skin: Visible areas of skin without rash, lesions, wounds or petechiae. 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 LABORATORY DATA: Hemoglobin (g/dL) Date Value 08/28/2023 12.7 06/24/2021 12.1 Hematocrit (%) Date Value 08/28/2023 40.5 06/24/2021 40.2 WBC (k/uL) Date Value 08/28/2023 11.93 06/24/2021 15.87 Platelet Count (k/uL) Date Value 08/28/2023 348 06/24/2021 455 RADIOLOGY/OTHER STUDIES: 05/28/2017 MRI orbit IMPRESSION: Normal study. Known abnormality of orbital adnexa not appreciated on this examination. No intracranial masses. 05/11/2017 PET scan IMPRESSION: 1. HEAD/NECK: No FDG avid neoplastic process. No hypermetabolic mass, adenopathy, or fluid collection. 2. CHEST: No FDG avid neoplastic process. No hypermetabolic mass, adenopathy, or fluid collection. 3. ABDOMEN/PELVIS: No FDG avid neoplastic process. No hypermetabolic mass, adenopathy, or fluid collection. 4. EXTREMITIES/SKELETON: No FDG avid osseous process. ASSESSMENT/PLAN: 1. Polycythemia vera (HCC) - ICD9: 238.4, ICD10: D45 (primary diagnosis) Polycythemia vera initially diagnosed September 2014 after presenting with chronic thrombocytosis and leukocytosis (and iron deficiency at the time). Initial evaluation revealed a positive JAK2 mutation. Primary treatment with Hydrea and aspirin started at the time of diagnosis. Currently on Hydrea 500 mg twice daily since 05/02/2022. He also undergoes phlebotomy for hematocrit greater than 45%. At this time the patient's hematocrit is <45%, therefore he will not require phlebotomy. Continue as is with Hydrea. Will check a CBC in 6 weeks. Return for follow-up in 12 weeks. 2. 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 Status post primary treatment with bilateral conjunctival radiation therapy completed June 2017 (24 Galindo in 12 fractions). He has had no evidence of recurrent lymphoma sincecompleting treatment, but has had multiple complications involving his eyes requiring multiple ophthalmologic procedures. He will follow-up with ophthalmology as scheduled. 3. Acquired hypothyroidism - ICD9: 244.9, ICD10: E03.9 Stable on current medications, continue per PCP. Mario Siddiqui MD documented in this encounterSelect [facility] History of Present illness Narrative* Gabo Fuchs MD - 08/16/2023 4:42 PM EDT Encounter Diagnosis ICD-10-CM 1. 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 Exposure keratoconjunctivitis of left eye H16.212 3. Aphakia, right eye H27.[address] Fuchs 07/23/23 Last seen by outside eye care provider (Dr. 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 Cool) decrease drops to QID OD and continue follow-up 2 months I have confirmed and edited as necessary the relevant ophthalmic history, ROS, and the neuro exam findings as obtained by others. I have seen and examined this patient. I have discussed the case and the management of this patient's care with the Resident/Fellow, if applicable. I also have reviewed and agree with the assessment and plan as stated above and agree with all of its relevant components. Gabo Fuchs MD documented in this encounterSelect [facility] History of Present illness Narrative* Gabo Fuchs MD - 07/24/2023 7:44 AM EDT Encounter Diagnosis ICD-10-CM 1. 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 Trichiasis of right lower eyelid H02.052 4. 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 Cool for repeat permanent lateral tarsorrhaphy and lash ablation Okay to continue as previously scheduled Follow-up me in 3 weeks, JOSSELYN if worse Consider long-term prophylaxis with linezolid based on recurrent gram-positive infections despite moxifloxacin + erythromycin prophylaxis next visit [facility] I have confirmed and edited as necessary the relevant ophthalmic history, ROS, and the neuro exam findings as obtained by others. I have seen and examined this patient. I have discussed the case and the management of this patient's care with the Resident/Fellow, if applicable. I also have reviewed and agree with the assessment and plan as stated above and agree with all of its relevant components. Gabo Fuchs MD documented in this encounterSelect [facility]03-[facility]24 Miscellaneous Notes* Telephone Encounter - Katherin Ruiz MD - 07/21/2023 6:56 PM EDT Critical Values Notification Note Returned page at 6:57 PM Right eye culture (right cornea) performed by Dr. Fuchs on 10/20/23 at 9:44 AM Most recently resulting: staph haemolyticus, no sensitivities yet resulted Currently on linezolid and ceftazidime every 1 hour while awake Will route message to provider Continue on above pending sensitivities which have not yet resulted Katherin Ruiz MD Ophthalmology Resident, PGY-3 [facility] documented in this encounterSelect Medical [facility]03-[facility] History of Present illness Narrative* Gabo Fuchs MD - 07/20/2023 1:36 PM EDT Encounter Diagnosis ICD-10-CM 1. 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 EYE CULTURE FUNGAL CULTURE CORNEAL EPITHELIAL DEBRIDEMENT (CULTURE/DIAGNOSTIC) OD (RIGHT EYE) 2. 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 Trichiasis of right lower eyelid H02.052 4. 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 Exposure keratoconjunctivitis of right eye H16.211 1 week history of pain/redness right eye Presence of new 2.5 mm ulcer with thinning and vague infiltration Patient previously taking moxifloxacin twice daily and erythromycin at time of presentation Previous history of corynebacterium ulcer for months previously sensitive to vancomycin Patient was intolerant of vancomycin so therapy was discontinued after epi closed Trichiasis right upper and right lower lid with mechanical irritation-epilated slit-lamp Recommend start linezolid and ceftazidime every hour while awake Discontinue moxifloxacin Continue erythromycin ointment nightly Cultures taken for bacteria and fungus Plan follow-up Sunday a.m. next visit [facility] I have confirmed and edited as necessary the relevant ophthalmic history, ROS, and the neuro exam findings as obtained by others. I have seen and examined this patient. I have discussed the case and the management of this patient's care with the Resident/Fellow, if applicable. I also have reviewed and agree with the assessment and plan as stated above and agree with all of its relevant components. Gabo Fuchs MD documented in this encounterSelect [facility]24 Miscellaneous Notes* Telephone Encounter - Gabo Fuchs MD - 07/18/2023 5:06 PM EDT Please add him to my clinic tomorrow, thanks * Telephone Encounter - Imani Moses - 07/18/2023 4:28 PM EDT Patient's is calling stating he has been having pain in the OD for the past 2 days with light sensitivity. No flashing and the pain has been rating as high as a 3. Says he has been taking Tylenol for the pain, however, it still seems to be worsening. Patient would like to know what to do. Patient and can be contacted at the following number, . FV: 08/16/2023 LV: 06/14/2023 Gabo Fuchs MD filed at 06/14/2023 9:12 AM Status: Signed Encounter Diagnosis ICD-10-CM 1. 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 Trichiasis of left lower eyelid without entropion H02.055 3. 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 Exposure keratoconjunctivitis of right eye H16.211 5. S/P PKP (penetrating keratoplasty) Z94.7 6. 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 - Presented 03/13/23 with new onset ulcer with significant thinning, - culture growing corynebacterium and staph, both sensitive to vanco Patient stopped vancomycin on 03/31/23 Currently taking moxifloxacin twice daily-no pain, small central epi defect Trichiasis present right upper lid, right lower lid epilate RUL and LLL today Continue moxifloxacin twice daily erythromycin ointment QHS and prn frequent tears avoid topical steroids for now -- once tarsorrhaphy is complete might consider reintroducing low dose topical steroid Recommend return to oculoplastics for 25 to 50% permanent lateral tarsorrhaphy and ablation of any residual trichiasis - has appt with Dr. Cool on 07/04/23 Letter to Kyler Cool Follow-up: 6 weeks Next visit [facility] I have confirmed and edited as necessary the relevant ophthalmic history, ROS, and the neuro exam findings as obtained by others. I have seen and examined this patient. I have discussed the case and the management of this patient's care with the Resident/Fellow, if applicable. I also have reviewed and agree with the assessment and plan as stated above and agree with all of its relevant components. Gabo Fuchs MD documented in this encounterSelect [facility]03-08-2024 Miscellaneous Notes* Telephone Encounter - Gabo Fuchs MD - 07/06/2023 3:48 PM EST Thank you, lets have him see me back on August 13 or August 15 okay to add to my clinic. Thanks * Telephone Encounter - Ruben Nieves - 07/06/2023 1:30 PM EST LV: 06/14/23 FV: 08/02/[address] Cool 07/04/23 as initial visit, new surgery 08/01/23, follow- up 08/08/23. Do youstill want to see him 08/02/23? Please advise as to new date and time. Gabo Fuchs MD filed at 06/14/2023 9:12 AM Status: Signed Encounter Diagnosis ICD-10-CM 1. 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 Trichiasis of left lower eyelid without entropion H02.055 3. 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 Exposure keratoconjunctivitis of right eye H16.211 5. S/P PKP (penetrating keratoplasty) Z94.7 6. 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 - Presented 03/13/23 with new onset ulcer with significant thinning, - culture growing corynebacterium and staph, both sensitive to vanco Patient stopped vancomycin on 03/31/23 Currently taking moxifloxacin twice daily-no pain, small central epi defect Trichiasis present right upper lid, right lower lid epilate RUL and LLL today Continue moxifloxacin twice daily erythromycin ointment QHS and prn frequent tears avoid topical steroids for now -- once tarsorrhaphy is complete might consider reintroducing low dose topical steroid Recommend return to oculoplastics for 25 to 50% permanent lateral tarsorrhaphy and ablation of any residual trichiasis - has appt with Dr. Cool on 07/04/23 Letter to Kyler Cool Follow-up: 6 weeks Next visit [facility] I have confirmed and edited as necessary the relevant ophthalmic history, ROS, and the neuro exam findings as obtained by others. I have seen and examined this patient. I have discussed the case and the management of this patient's care with the Resident/Fellow, if applicable. I also have reviewed and agree with the assessment and plan as stated above and agree with all of its relevant components. Gabo Fuchs MD documented in this encounterSelect [facility]02[facility] History of Present illness Narrative* Gabo Fuchs MD - 06/14/2023 8:37 AM EST Encounter Diagnosis ICD-10-CM 1. 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 Trichiasis of left lower eyelid without entropion H02.055 3. 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 Exposure keratoconjunctivitis of right eye H16.211 5. S/P PKP (penetrating keratoplasty) Z94.7 6. 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 - Presented 03/13/23 with new onset ulcer with significant thinning, - culture growing corynebacterium and staph, both sensitive to vanco Patient stopped vancomycin on 03/31/23 Currently taking moxifloxacin twice daily-no pain, small central epi defect Trichiasis present right upper lid, right lower lid epilate RUL and LLL today Continue moxifloxacin twice daily erythromycin ointment QHS and prn frequent tears avoid topical steroids for now -- once tarsorrhaphy is complete might consider reintroducing low dose topical steroid Recommend return to oculoplastics for 25 to 50% permanent lateral tarsorrhaphy and ablation of any residual trichiasis - has appt with Dr. Cool on 07/04/23 Letter to Kyler Cool Follow-up: 6 weeks Next visit [facility] I have confirmed and edited as necessary the relevant ophthalmic history, ROS, and the neuro exam findings as obtained by others. I have seen and examined this patient. I have discussed the case and the management of this patient's care with the Resident/Fellow, if applicable. I also have reviewed and agree with the assessment and plan as stated above and agree with all of its relevant components. Gabo Fuchs MD documented in this encounterSelect [facility] History of Present illness Narrative* Mario Siddiqui MD - 06/05/2023 5:28 AM EST PATIENT NAME: Mak Garces DATE: 06/05/2023 PRIMARY CARE PHYSICIAN: Dr. Romulo Clark OTHER PHYSICIANS: Dr. Gabo Fuchs ([facility] Ophthalmology) Portions of this encounter note have been copied from the note from 03/13/2023 and has been updatedwhere appropriate, and reflect my current medical decision making from today. 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 INTERIM HISTORY: Since the patient's last visit here he has stated no significant medical changes. He remains on Hydrea 500 mg twice daily which he is tolerating. No recent fevers, night sweats or weight loss. Irritation around his right eye is unchanged. No newcomplaints. MEDICATIONS: hydroxyurea (HYDREA) 500 mg capsule take 1 capsule by mouth twice a day vancomycin ophthalmic solution 2.5% (25 mg/mL) (IP-CPD) Use 1 Drop in the right eye every 2 hours while awake. moxifloxacin (VIGAMOX) 0.5 % ophthalmic solution instill 1 drop into right eye three times a day erythromycin (ROMYCIN) 5 mg/gram (0.5 %) ophthalmic ointment apply into right eye at bedtime fluoride, sodium, (DENTA-GEL) 1.1 % gel use to BRUSH TEETH 3 to 5 MINUTES once daily polyvinyl alcohol-povidone (REFRESH) 1.4-0.6 % ophthalmic solution 1 drop into affected eye as needed ascorbic acid, vitamin C, (VITAMIN C) 500 mg tablet Take 1,000 mg by mouth once daily. olmesartan (BENICAR) 40 mg tablet 0.5 tablets once daily. levothyroxine (SYNTHROID) 150 mcg tablet Take 1 tablet by mouth once daily. fluticasone (FLONASE) 50 mcg/actuation nasal spray tamsulosin (FLOMAX) 0.4 mg Take 0.4 mg by mouth daily at bedtime. carboxymethylcellulose (REFRESH TEARS) 0.5 % drop Use 1 Drop in both eyes as needed. 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 HEENT: Negative for frequent or significant headaches. No changes in hearing, no nose bleeds or other nasal problems. Positive right eye issues. Respiratory: Negative for cough, wheezing or shortness of breath. Cardiovascular: Negative for chest pain, leg swelling or palpitations. GI: Negative for abdominal discomfort, blood in stools or black stools or change in bowel habits. : No history of dysuria, frequency or incontinence. Musculoskeletal: Negative for joint pain or swelling, back pain and muscle pain. Skin: Negative for lesions, rash and itching. Hematology/Lymphology: Negative for prolonged bleeding, bruising easily or swollen nodes. Neuro: No history of headaches, syncope, paralysis, seizures or tremors. PHYSICAL EXAM: Vitals: BP 122/81 Pulse 98 Temp 36.4 C (97.5 F) (Temporal) Resp 18 Ht 188 cm (6' 2.02 ) Wt 124.1 kg (273 lb 9.5 oz) SpO2 98% BMI 35.11 kg/m ECOG 0 Exam limited to gross visualization where appropriate due to COVID-19. Gen.: This is an age-appropriate patient in no acute distress. Head: Appears atraumatic with no visible lesions. Eyes: Right eye red. Neck: Supple. Mouth: Masked. Respiratory: Appears to be respiring comfortably. Neurologic: Nonfocal to gross visualization. Alert and oriented 3. Psychiatric: No evidence of inappropriate anxiety or depression. Skin: Visible areas of skin without rash, lesions, wounds or petechiae. 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 LABORATORY DATA: Hemoglobin (g/dL) Date Value 06/05/2023 15.3 06/24/2021 12.1 Hematocrit (%) Date Value 06/05/2023 48.6 06/24/2021 40.2 WBC (k/uL) Date Value 06/05/2023 9.69 06/24/2021 15.87 Platelet Count (k/uL) Date Value 06/05/2023 290 06/24/2021 455 RADIOLOGY/OTHER STUDIES: 05/28/2017 MRI orbit IMPRESSION: Normal study. Known abnormality of orbital adnexa not appreciated on this examination. No intracranial masses. 05/11/2017 PET scan IMPRESSION: 1. HEAD/NECK: No FDG avid neoplastic process. No hypermetabolic mass, adenopathy, or fluid collection. 2. CHEST: No FDG avid neoplastic process. No hypermetabolic mass, adenopathy, or fluid collection. 3. ABDOMEN/PELVIS: No FDG avid neoplastic process. No hypermetabolic mass, adenopathy, or fluid collection. 4. EXTREMITIES/SKELETON: No FDG avid osseous process. ASSESSMENT/PLAN: 1. Polycythemia vera (HCC) - ICD9: 238.4, ICD10: D45 (primary diagnosis) Polycythemia vera initially diagnosed September 2014 after presenting with chronic thrombocytosis and leukocytosis (and iron deficiency at the time). Initial evaluation revealed a positive JAK2 mutation. Primary treatment with Hydrea and aspirin started at the time of diagnosis. He also undergoes phlebotomy for hematocrit greater than 45%. Currently on Hydrea 1000 mg daily since 05/02/2022. At this time the patient's hematocrit is >45%, therefore he will require a phlebotomy today. Continue as is with Hydrea. Will check a CBC in 6 weeks. Return for follow-up in 12 weeks. 2. 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 Status post primary treatment with bilateral conjunctival radiation therapy completed June 2017 (24 Galindo in 12 fractions). He has had no evidence of recurrent lymphoma sincecompleting treatment, but has had multiple complications involving his eyes requiring multiple ophthalmologic procedures (7 on right eye, 2 on left eye). He will follow-up with ophthalmology as scheduled. 3. Acquired hypothyroidism - ICD9: 244.9, ICD10: E03.9 Stable on current medications, continue per PCP. Mario Siddiqui MD documented in this encounterSelect [facility]12-19-2023 History of Present illness Narrative* Gabo Fuchs MD - 04/17/2023 1:20 PM EST Encounter Diagnosis ICD-10-CM 1. 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 S/P PKP (penetrating keratoplasty) Z94.7 7. 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 - Presented 03/13/23 with new onset ulcer with significant thinning, - culture growing corynebacterium and staph, both sensitive to vanco Patient stopped vancomycin on 03/31/23 Currently taking moxifloxacin twice daily-no pain, 0.5 mm residual epithelial defect at base of previous ulcer Trichiasis present right upper lid, right lower lid, left lower lid Epilated lids x3 Continue moxifloxacin twice daily erythromycin ointment QHS and prn frequent tears avoid topical steroids Recommend return to oculoplastics for 25 to 50% permanent lateral tarsorrhaphy and ablation of any residual trichiasis Letter to Kyler Cool Follow-up: 3 weeks Next visit [facility] I have confirmed and edited as necessary the relevant ophthalmic history, ROS, and the neuro exam findings as obtained by others. I have seen and examined this patient. I have discussed the case and the management of this patient's care with the Resident/Fellow, if applicable. I also have reviewed and agree with the assessment and plan as stated above and agree with all of its relevant components. Gabo Fuchs MD documented in this encounterSelect Medical [facility]12-02-2023 Miscellaneous Notes* Telephone Encounter - Gabo Fuchs MD - 03/31/2023 12:20 PM EST Called and left message on VM - recommend stopping vancomycin drops with negative repeat cultures and possible toxicity causing increased abrasion last visit. documented in this encounterSelect Medical [facility]11-24-2023 Miscellaneous Notes* Telephone Encounter - Nicole Woodward RN - 03/23/2023 12:25 PM EST Patient called stating he is having issues with is mail order pharmacy filling his most recent Hydrea script. Can we please send a one month supply to [facility] in [place] until it gets straightened out. Thanks Christa Woodward RN documented in this encounterSelect Medical [facility]2023 History of Present illness Narrative* Gabo Fuchs MD - 03/22/2023 4:54 PM EST Encounter Diagnosis ICD-10-CM 1. 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 3. 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 -Presented with new onset ulcer with significant thinning, now approximate 50% epithelial closure, decreased injection and pain - culture growing corynebacterium and staph, both sensitive to vanco photophobia OD - Epilated additional lashes from RUL at the slit-lamp without replace BCL today (March 19, 2023) Discontinue tobramycin Restart moxifloxacin twice daily Bandage contact lens placed today OD Kontur 16mm BC = 8.6 Prophylaxis with moxifloxacin/vancomycin Follow-up: 1 week Next visit [facility] I have confirmed and edited as necessary the relevant ophthalmic history, ROS, and the neuro exam findings as obtained by others. I have seen and examined this patient. I have discussed the case and the management of this patient's care with the Resident/Fellow, if applicable. I also have reviewed and agree with the assessment and plan as stated above and agree with all of its relevant components. Gabo Fuchs MD documented in this encounterSelect Medical [facility]11-[facility]-2023 Miscellaneous Notes* Telephone Encounter - Ruben Nieves 03/14/2023 11:06 AM EST Message has been relayed to patient, he understood and had no further questions. * Telephone Encounter - Gabo Fuchs MD - 03/14/2023 11:03 AM EST Sorry I did not clarify this -- for now, he can stop the moxifloxacin but please continue the erythromycin ointment * Telephone Encounter - Ruben Nieves - 03/14/2023 8:59 AM EST LV: 03/13/23 FV: 03/19/23 Is patient to continue Moxi and Erythromycin along with antibiotics? Please advise. Kaden Martinez, RACHANA filed at 03/13/2023 1:31 PM Status: Sign when Signing Visit Encounter Diagnosis ICD-10-CM 1. 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 Trichiasis of left lower eyelid without entropion H02.055 5. 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 S/P PKP (penetrating keratoplasty) Z94.7 7. 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 Aphakia, right eye H27.01 9. Exposure keratoconjunctivitis of right eye H16.211 10. 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 - BCL is no longer present - 2-3+ injection and diffuse KNV over the cornea. Plan: - BCL today Bandage contact lens placed today OD Kontur 16mm BC = 8.6 Prophylaxis with Moxifloxacin/Linezolid OD (H02.051) Trichiasis Comment: - Pt reports having FBS, redness, and photophobia. He expressed irritation and pain fluctuate in appearance and intensity. Plan: - Offer epilation of lashes if there are trichiatic lashes present. By signing my name below, I, RACHANA Montiel, attest that this documentation has been prepared under the direction and in the presence of Dr. Fuchs Electronically signed, RACHANA Montiel, Scribe March 13, 2023 1:16 PM I agree with the Chief Complaint, ROS, and Past Histories independently gathered by the clinical program support specialist and the remaining scribed note accurately describes my personal service to the patient. Follow-up: 1 week (Sunday) Next visit va iop ou - Pt expressed having redness, irritation, FBS, and photophobia OD - A 3 by 1.[address] with 70% thinning without much infiltration. Will culture to rule out bacterial infection. - Epilated lashes from OD at the slit-lamp without complication. - Start applying Tobramycin and Vancomycin every 2 hours while awake OD. Sent script to pharmacy. - Will update the patient regarding the result of the culture and to devise next step. - Removed loose suture adjacent to the ulcer OD under the slit-lamp without complication. - Inserted BCL today: Bandage contact lens placed today OD Kontur 16mm BC = 8.6 Prophylaxis with Moxifloxacin/Linezolid OD documented in this encounterSelect [facility] History of Present illness Narrative* Gabo Fuchs MD - 03/13/2023 12:44 PM EST Encounter Diagnosis ICD-10-CM 1. 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 Trichiasis of left lower eyelid without entropion H02.055 5. 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 S/P PKP (penetrating keratoplasty) Z94.7 7. 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 Aphakia, right eye H27.01 9. Exposure keratoconjunctivitis of right eye H16.211 10. 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 - BCL is no longer present - 2-3+ injection and diffuse KNV over the cornea. + New superior ulcer with 80% thinning in area of upper lid trichiasis, no distinct infiltration but ulcer margins are necrotic - Pt expressed having redness, irritation, FBS, and photophobia OD - A 3 by 1.[address] with 70% thinning without much infiltration. Will culture to rule out bacterial infection. - Epilated lashes from RUL at the slit-lamp without complication. - Start applying Tobramycin and Vancomycin every 2 hours while awake OD. Sent script to pharmacy. - Will update the patient regarding the result of the culture and to devise next step. - Removed loose suture adjacent to the ulcer OD under the slit-lamp without complication. - Inserted BCL today: Bandage contact lens placed today OD Kontur 16mm BC = 8.6 Prophylaxis with Moxifloxacin/Linezolid OD By signing my name below, I, RACHANA Montiel, attest that this documentation has been prepared under the direction and in the presence of Dr. Fuchs Electronically signed, RACHANA Montiel Scribe March 13, 2023 1:16 PM Follow-up: 1 week (Sunday) Next visit [facility] I have confirmed and edited as necessary the relevant ophthalmic history, ROS, and the neuro exam findings as obtained by others. I have seen and examined this patient. I have discussed the case and the management of this patient's care with the Resident/Fellow, if applicable. I also have reviewed and agree with the assessment and plan as stated above and agree with all of its relevant components. Gabo Fuchs MD documented in this encounterSelect [facility] History of Present illness Narrative* Nicolasa Donovan, YOUTH MINISTER.[facility] - 03/13/2023 8:53 AM EST PATIENT NAME: Mak Garces DATE: 03/13/2023 PRIMARY CARE PHYSICIAN: Dr. Romulo Clark OTHER PHYSICIANS: Dr. Gabo Fuchs ([facility] Ophthalmology) Portions of this encounter note have been copied from the note from 12/12/2022 and has been updated where appropriate, and reflect my current medical decision making from today. 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 INTERIM HISTORY: Mak Garces returns for scheduled follow-up and possible phlebotomy. He remains on Hydrea 500 mg twice daily. He still has skin effects . His hands are dry and break out. His faceturns very red. He denies bleeding and abnormal bruising. He denies fevers, chills, night sweats and signs/symptoms of infection. He has noticed that his right eye has been more red lately and is scheduled to see his endoscopy registered nurse today, Dr. Fuchs. MEDICATIONS: moxifloxacin (VIGAMOX) 0.5 % ophthalmic solution instill 1 drop into right eye three times a day erythromycin (ROMYCIN) 5 mg/gram (0.5 %) ophthalmic ointment apply into right eye at bedtime hydroxyurea (HYDREA) 500 mg capsule Take 2 capsules by mouth once daily. Or as directed. fluoride, sodium, (DENTA-GEL) 1.1 % gel use to BRUSH TEETH 3 to 5 MINUTES once daily polyvinyl alcohol-povidone (REFRESH) 1.4-0.6 % ophthalmic solution 1 drop into affected eye as needed ascorbic acid, vitamin C, (VITAMIN C) 500 mg tablet Take 1,000 mg by mouth once daily. olmesartan (BENICAR) 40 mg tablet 0.5 tablets once daily. levothyroxine (SYNTHROID) 150 mcg tablet Take 1 tablet by mouth once daily. fluticasone (FLONASE) 50 mcg/actuation nasal spray tamsulosin (FLOMAX) 0.4 mg Take 0.4 mg by mouth daily at bedtime. carboxymethylcellulose (REFRESH TEARS) 0.5 % drop Use 1 Drop in both eyes as needed. furosemide (LASIX) 40 mg tablet Take 40 mg by mouth every morning. (Patient not taking: Reported on03/13/2023) potassium chloride ER (KLOR-CON M10) 10 mEq tablet take 1 tablet by mouth every morning (TAKE WITH LASIX) (Patient not taking: Reported on 03/13/2023) prednisoLONE acetate (PRED FORTE, ECONOPRED PLUS) 1 % ophthalmic suspension Use 1 Drop in the righteye once daily. ZINC ORAL Take 140 mg by mouth. levocetirizine 5 mg tablet Take 5 mg by mouth. vitamin B complex (B-PLEX ORAL) Take by mouth. 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 HEENT: Negative for frequent or significant headaches. No changes in hearing, no nose bleeds or other nasal problems. Positive right eye issues. Respiratory: Negative for cough, wheezing or shortness of breath. Cardiovascular: Negative for chest pain, leg swelling or palpitations. GI: Negative for abdominal discomfort, blood in stools or black stools or change in bowel habits. : No history of dysuria, frequency or incontinence. Musculoskeletal: Negative for joint pain or swelling, back pain and muscle pain. Skin: Negative for lesions, rash and itching. Hematology/Lymphology: Negative for prolonged bleeding, bruising easily or swollen nodes. Neuro: No history of headaches, syncope, paralysis, seizures or tremors. PHYSICAL EXAM: Vitals: BP 133/84 Pulse 78 Temp 36.6 C (97.8 F) (Temporal) Resp 20 Ht 188 cm (6' 2.02 ) Wt 124 kg (273 lb 6.4 oz) SpO2 98% BMI 35.09 kg/m ECOG 0 Exam limited to gross visualization where appropriate due to COVID-19. Gen.: This is an age-appropriate patient in no acute distress. Head: Appears atraumatic with no visible lesions. Eyes: Right eye red. Neck: Supple. Mouth: Masked. Respiratory: Appears to be respiring comfortably. Neurologic: Nonfocal to gross visualization. Alert and oriented 3. Psychiatric: No evidence of inappropriate anxiety or depression. Skin: Visible areas of skin without rash, lesions, wounds or petechiae. 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 LABORATORY DATA: Hemoglobin (g/dL) Date Value 03/13/2023 13.9 06/24/2021 12.1 Hematocrit (%) Date Value 03/13/2023 44.7 06/24/2021 40.2 WBC (k/uL) Date Value 03/13/2023 11.05 06/24/2021 15.87 Platelet Count (k/uL) Date Value 03/13/2023 395 06/24/2021 455 RADIOLOGY/OTHER STUDIES: 05/28/2017 MRI orbit IMPRESSION: Normal study. Known abnormality of orbital adnexa not appreciated on this examination. No intracranial masses. 05/11/2017 PET scan IMPRESSION: 1. HEAD/NECK: No FDG avid neoplastic process. No hypermetabolic mass, adenopathy, or fluid collection. 2. CHEST: No FDG avid neoplastic process. No hypermetabolic mass, adenopathy, or fluid collection. 3. ABDOMEN/PELVIS: No FDG avid neoplastic process. No hypermetabolic mass, adenopathy, or fluid collection. 4. EXTREMITIES/SKELETON: No FDG avid osseous process. ASSESSMENT/PLAN: 1. Polycythemia vera (HCC) - ICD9: 238.4, ICD10: D45 (primary diagnosis) Polycythemia vera initially diagnosed September 2014 after presenting with chronic thrombocytosis and leukocytosis (and iron deficiency at the time). Initial evaluation revealed a positive JAK2 mutation. Primary treatment with Hydrea and aspirin started at the time of diagnosis. He also undergoes phlebotomy for hematocrit greater than 45%. Currently on Hydrea 1000 mg daily since 05/02/2022. At this time the patient is clinically stable, his hematocrit is <45% therefore he will not require a phlebotomy today. Continue as is with Hydrea. Will check a CBC in 6 weeks. He will return for follow-up in 12 weeks. 2. 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 Status post primary treatment with bilateral conjunctival radiation therapy completed June 2017 (24 Galindo in 12 fractions). He has had no evidence of recurrent lymphoma sincecompleting treatment, but has had multiple complications involving his eyes requiring multiple ophthalmologic procedures (7 on right eye, 2 on left eye). He will follow-up with ophthalmology as scheduled. 3. Acquired hypothyroidism - ICD9: 244.9, ICD10: E03.9 Stable on current medications, continue per PCP. Nicolasa Donovan APRN.VALERIANO I spent a total of 30 minutes on the date of the service which included preparing to see the patient, [id number] patient care, completing clinical documentation, obtaining and/or reviewing separately obtained history, performing a medically appropriate examination, counseling and educating the pat ient/family/caregiver, ordering medications, tests, or procedures, independently interpreting results (not separately reported), and communicating results to the patient/family/caregiver. documented in this encounterSelect [facility]11-13-2023 Miscellaneous Notes* Telephone Encounter - Ruben Nieves - 03/12/2023 3:52 PM EST Spoke with patient and relayed message, he has been scheduled for tomorrow. * Telephone Encounter - Gabo Fuchs MD - 03/12/2023 1:53 PM EST We can add him to my clinic tomorrow regardless, thanks * Telephone Encounter - Ruben Nieves - 03/12/2023 1:17 PM EST LV: 02/09/23 FV: 06/14/23 Patient reports OD is very blood shot. Vision is the same with slight discomfort pain at 1-2. Relayed that it could be broken blood vessel. Picture has been requested. Waiting for email. Please advise. Gabo Fuchs MD filed at 02/09/2023 10:36 AM Status: Signed Encounter Diagnosis ICD-10-CM 1. Corneal scar, right eye H17.9 2. 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 S/P PKP (penetrating keratoplasty) Z94.7 6. 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 Exposure keratoconjunctivitis of right eye H16.211 9. 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 - Epilated ~15 upper lases of lashes OD along upper eyelid and 2 lower lashes OS - BCL fell out 2 weeks ago - Previously had Kontour 16.00 BC = 8.6 - Also removed 3 loose graft sutures superior OD today Discussed options and prognosis-at present, surface has been well-maintained although increased neovascularization consistent with stopping steroids the setting of previous transplant All previous attempts of reintroducing steroid have led to nonhealing corneal ulcers and multiple perforations Favor conservative management with comfort care and avoidance of compromising posterior segment butno meaningful path to stable anterior segment with current options Patient has been more comfortable in bandage contact lens-reasonable to replace as patient already has evidence of limbal stem cell failure in the setting of severe neurotrophic disease and unlikely to worsen any future surgical options at this time Bandage contact lens placed today OD Kontur 16mm BC = 8.6 Prophylaxis with gent BID erythromycin kd qhs/prn follow-up me 3 months next visit [facility] I have confirmed and edited as necessary the relevant ophthalmic history, ROS, and the neuro exam findings as obtained by others. I have seen and examined this patient. I have discussed the case and the management of this patient's care with the Resident/Fellow, if applicable. I also have reviewed and agree with the assessment and plan as stated above and agree with all of its relevant components. Gabo Fuchs MD documented in this encounterSelect Medical [facility]08-30-2023 Miscellaneous Notes* Telephone Encounter - Ruben Nieves - 12/27/2022 9:41 AM EDT LV: 11/07/22 FV: 02/08/23 Patient's request for medication is as follows: Requested Prescriptions Pending Prescriptions Disp Refills erythromycin (ROMYCIN) 5 mg/gram (0.5 %) ophthalmic ointment [Pharmacy Med Name: ERYTHROMYCIN 0.5% EYE OINTMENT] 3.5 g 2 Sig: apply into right eye at bedtime Prescription(s) as above. Please process accordingly. Gabo Xiong MD filed at 11/07/2022 11:08 AM Status: Signed Encounter Diagnosis ICD-10-CM 1. Corneal scar, right eye H17.9 2. Trichiasis without entropion of right upper eyelid H02.051 EPILATION OF TRICHIASIS, FORCEPS 3. 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 Aphakia, right eye H27.01 7. S/P PKP (penetrating keratoplasty) Z94.7 8. 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 - Epilation of lashes OD along upper eyelid - Currently on Moxifloxacin TID OD while BCL in place - BCL OD in place and removed today. - To consider trial off of BCL this visit. IOP today is 16 mmHg By signing my name below, I, Kaden Martinez, attest that this documentation has been prepared under the direction and in the presence of Dr. Fuchs Electronically signed, Grant Montiel November 07, 2022 10:40 AM I agree with the Chief Complaint, ROS, and Past Histories independently gathered by the clinical program support specialist and the remaining scribed note accurately describes my personal service to the patient. - Epilated lashes under the slit lamp today without complication. - Given the presentation, I advised against further procedure at this time as it may result in complicated outcome. - Replaced BCL OD today Bandage contact lens placed today OS Kontur 16mm BC = 8.6 Prophylaxis with moxi - Consider trial off BCL next visit to see if surface tolerates. Follow up 10-12 weeks next visit [facility] discussed option of trial out of bcl with close monitoring vs continue intermediate patient to consider, okay to continue bcl if prefers for stability would need to address trichiasis before any trial out of bcl though I have confirmed and edited as necessary the relevant ophthalmic history, ROS, and the neuro exam findings as obtained by others. I have seen and examined this patient. I have discussed the case and the management of this patient's care with the Resident/Fellow, if applicable. I also have reviewed and agree with the assessment and plan as stated above and agree with all of its relevant components. Gabo Fuchs MD documented in this encounterSelect Medical [facility]07-[facility] History of Present illness Narrative* Gabo Fuchs MD - 11/07/2022 9:30 AM EDT Encounter Diagnosis ICD-10-CM 1. Corneal scar, right eye H17.9 2. Trichiasis without entropion of right upper eyelid H02.051 EPILATION OF TRICHIASIS, FORCEPS 3. 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 Aphakia, right eye H27.01 7. S/P PKP (penetrating keratoplasty) Z94.7 8. 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 - Epilation of lashes OD along upper eyelid - Currently on Moxifloxacin TID OD while BCL in place - BCL OD in place and removed today. - To consider trial off of BCL this visit. IOP today is 16 mmHg By signing my name below, I, Kaden Martinez, attest that this documentation has been prepared under the direction and in the presence of Dr. Fuchs Electronically signed, Grant Montiel November 07, 2022 10:40 AM I agree with the Chief Complaint, ROS, and Past Histories independently gathered by the clinical program support specialist and the remaining scribed note accurately describes my personal service to the patient. - Epilated lashes under the slit lamp today without complication. - Given the presentation, I advised against further procedure at this time as it may result in complicated outcome. - Replaced BCL OD today Bandage contact lens placed today OS Kontur 16mm BC = 8.6 Prophylaxis with moxi - Consider trial off BCL next visit to see if surface tolerates. Follow up 10-12 weeks next visit [facility] discussed option of trial out of bcl with close monitoring vs continue intermediate patient to consider, okay to continue bcl if prefers for stability would need to address trichiasis before any trial out of bcl though I have confirmed and edited as necessary the relevant ophthalmic history, ROS, and the neuro exam findings as obtained by others. I have seen and examined this patient. I have discussed the case and the management of this patient's care with the Resident/Fellow, if applicable. I also have reviewed and agree with the assessment and plan as stated above and agree with all of its relevant components. Gabo Fuchs MD documented in this encounterSelect Medical [facility]07-05-2023 Miscellaneous Notes* Telephone Encounter - Carolann Manuel RN - 11/01/2022 8:14 AM EDT Can you please place updated phlebotomy orders in [place] to prevent delay in tx. He is scheduled first thing this morning. Thank you, Carolann Manuel RN * Telephone Encounter - Carolann Manuel RN - 10/24/2022 2:35 PM EDT Pt is scheduled for labs and possible phlebotomy on 11/01. Please place current orders to prevent delay in tx. Thank you, Carolann Manuel RN documented in this encounterSelect Medical [facility]05-31-2023 History of Present illness Narrative* Gabo Fuchs MD - 09/27/2022 11:43 AM EDT Encounter Diagnosis ICD-10-CM 1. Corneal scar, right eye H17.9 2. 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 Aphakia, right eye H27.01 7. S/P PKP (penetrating keratoplasty) Z94.7 8. 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 Behavior also raises suspicion for secondary causes of unusual behavior such as subclinical zoster?) Continue moxifloxacin 3 times daily Bandage contact lens placed today OS Kontur 16mm BC = 8.6 Prophylaxis with moxi Follow-up 4- 6weeks Consider trial out of bandage contact lens letter to Dr. Cool may be able to defer additional tarsorrhaphy if surface remains intact, potentially would benefit from more eyelash ablation though next visit [facility] I have confirmed and edited as necessary the relevant ophthalmic history, ROS, and the neuro exam findings as obtained by others. I have seen and examined this patient. I have discussed the case and the management of this patient's care with the Resident/Fellow, if applicable. I also have reviewed and agree with the assessment and plan as stated above and agree with all of its relevant components. Gabo Fuchs MD documented in this encounterSelect Medical [facility]04-24-2023 History of Present illness Narrative* Gelacio Price MD - 08/21/2022 10:35 AM EDT Follow-up descemetocele/perforated corneal ulcer right eye (in setting of NK and prior PKP) - initially discovered 07/19/22 Glued 07/19/22 and again 08/18/2208/21 Closed today (glue gone) but vision is significantly worse (subjectively and objectively), eye remains soft B-scan with large choroidal effusions adjacent to macula Plan: BCL replaced - [employer] N&D BC 8.6 3 RUL trichiatic lashes epilated with jewelers forceps Continue moxifloxacin TID OD Stop Pred [place] shield nightly OD No heavy lifting, bending over at waist, eye rubbing Follow up on with Dr. Fuchs Return precautions discussed Seen with Dr. Fuchs. Gelacio Price MD Fellow Cornea, External Disease, & Refractive Surgery documented in this encounterSelect Medical [facility]04-22-2023 Miscellaneous Notes* Telephone Encounter - Jimmie Mathew MD - 08/19/2022 10:15 AM EDT Returned call at 10:15 AM Patient with perforated ulcer/descemetocele Saw Dr. Price yesterday, found to have pinpoint leakage Glued and BCL placed yesterday Patient calling in because of leakage in his eye Says he wakes up with leaking eye, can feel water running down his face This only happens when he wakes up He is currently NOT having these symptoms when I spoke to him Eye feels about the same as yesterday I discussed that this leakage is more consistent with tearing from possible dryness/irritation from bcl and glue given these symptoms only occur upon wakening (and it would be unlikely that he would notice significant leaking from a pinpoint leak) Discussed that I can see him today at main campus if he would like Recommended he try artificial tears in the meantime He says he will try to wait until Sunday for follow up as scheduled since he seems to be doing finenow Asked him to call back or go to ED if any acute worsening of symptoms in the meantime Jimmie Mathew MD Ophthalmology Resident documented in this encounterSelect Medical [facility]-2023 History of Present illness Narrative* Gelacio Price MD - 08/18/2022 12:00 PM EDT Follow-up descemetocele/perforated corneal ulcer right eye Glue remains in place but has recurrent pinpoint leakage through glue, IOP low and globe appears shrunken R/B/A of repeat glue and loose suture removal discussed, patient wishes to proceed Loose 3 o'clock suture removed without incident Glue applied over prior perforation successfully, Kun negative following application, Oasys 8.8 BCL placed Continue moxifloxacin TID OD, Pred Forte once daily OD Smith shield nightly OD No heavy lifting, bending over at waist Follow up Sunday Return precautions discussed Gelacio Price MD Fellow Cornea, External Disease, & Refractive Surgery documented in this encounter[facility] Miscellaneous Notes* Telephone Encounter - TereJustoDeborah Ezequiel - 08/18/2022 9:02 AM EDT Images from the original note were not included. Spoke with patient he is on his way and understands instructions. Gelacio Price MD You; Gabo Fuchs MD; Emilia Mcfadden MD 33 minutes ago (8:27 AM) EL Please advise him nothing to eat or drink starting now. Gelacio Price MD You; Gabo Fuchs MD; Emilia Mcfadden MD 33 minutes ago (8:27 AM) EL JOSSELYN via SDA with me please. Gelacio * Telephone Encounter - Ruben Nieves - 08/18/2022 8:24 AM EDT LV: 08/02/22 FV: 08/31/22 Patient is concerned he sprung a leak OD and would like to be seen. He has excessive tearing. Please advise. Gabo Fuchs MD filed at 08/02/2022 9:06 PM Status: Signed Encounter Diagnosis ICD-10-CM 1. Perforated corneal ulcer of right eye H16.071 OCT ANTERIOR SEGMENT CIRRUS OD (RIGHT EYE) CANCELED: OCT ANTERIOR SEGMENT OPTOVUE OD (RIGHT EYE) 2. Trichiasis of right upper eyelid H02.051 EPILATION OF TRICHIASIS, FORCEPS 3. 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 Follow-up descemetocele/perforated corneal ulcer right eye Glue remains in place, intraocular pressure improved consistent with closure of perforation Trichiasis right upper lid-epilated x3 Discussed may need additional permanent lateral tarsorrhaphy right side once cornea stable Recommend continue moxifloxacin 3 times daily right eye recommend continue prednisolone once daily right eye Commend continue smith shield nightly right eye Follow-up 3 to 4 weeks next visit va iop ou I have confirmed and edited as necessary the relevant ophthalmic history, ROS, and the neuro exam findings as obtained by others. I have seen and examined this patient. I have discussed the case and the management of this patient's care with the Resident/Fellow, if applicable. I also have reviewed and agree with the assessment and plan as stated above and agree with all of its relevant components. Gabo Fuchs MD documented in this encounterSelect [facility] Miscellaneous Notes* Telephone Encounter - Ruben Nieves - 08/17/2022 8:57 AM EDT Relayed detailed message to patient, he understood and had no further questions. * Telephone Encounter - Gabo Fuchs MD - 08/17/2022 8:35 AM EDT With apologies, I thought I had sent a letter but it did not go up. I just sent a new communicationto Dr. Cool with details regarding what I think would be best for his lid surgery moving forwards. I would still wait approximately 2 weeks before doing any surgery on the lid just to make sure that his eye is stable but anytime after I see him back in early August would be fine. * Telephone Encounter - Ruben Nieves - 08/16/2022 11:18 AM EDT LV: 08/02/22 FV: 08/31/22 Patient is wondering if you had contacted Dr. Cool regarding resealing patient's eye? He hasn't heard from them yet. Please advise. Gabo Fuchs MD filed at 08/02/2022 9:06 PM Status: Signed Encounter Diagnosis ICD-10-CM 1. Perforated corneal ulcer of right eye H16.071 OCT ANTERIOR SEGMENT CIRRUS OD (RIGHT EYE) CANCELED: OCT ANTERIOR SEGMENT OPTOVUE OD (RIGHT EYE) 2. Trichiasis of right upper eyelid H02.051 EPILATION OF TRICHIASIS, FORCEPS 3. 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 Follow-up descemetocele/perforated corneal ulcer right eye Glue remains in place, intraocular pressure improved consistent with closure of perforation Trichiasis right upper lid-epilated x3 Discussed may need additional permanent lateral tarsorrhaphy right side once cornea stable Recommend continue moxifloxacin 3 times daily right eye recommend continue prednisolone once daily right eye Commend continue smith shield nightly right eye Follow-up 3 to 4 weeks next visit va iop ou I have confirmed and edited as necessary the relevant ophthalmic history, ROS, and the neuro exam findings as obtained by others. I have seen and examined this patient. I have discussed the case and the management of this patient's care with the Resident/Fellow, if applicable. I also have reviewed and agree with the assessment and plan as stated above and agree with all of its relevant components. Gabo Fuchs MD documented in this encounterSelect [facility] History of Present illness Narrative* Gabo Fuchs MD - 08/02/2022 9:04 PM EDT Encounter Diagnosis ICD-10-CM 1. Perforated corneal ulcer of right eye H16.071 OCT ANTERIOR SEGMENT CIRRUS OD (RIGHT EYE) CANCELED: OCT ANTERIOR SEGMENT OPTOVUE OD (RIGHT EYE) 2. Trichiasis of right upper eyelid H02.051 EPILATION OF TRICHIASIS, FORCEPS 3. 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 Follow-up descemetocele/perforated corneal ulcer right eye Glue remains in place, intraocular pressure improved consistent with closure of perforation Trichiasis right upper lid-epilated x3 Discussed may need additional permanent lateral tarsorrhaphy right side once cornea stable Recommend continue moxifloxacin 3 times daily right eye recommend continue prednisolone once daily right eye Commend continue smith shield nightly right eye Follow-up 3 to 4 weeks next visit va iop ou I have confirmed and edited as necessary the relevant ophthalmic history, ROS, and the neuro exam findings as obtained by others. I have seen and examined this patient. I have discussed the case and the management of this patient's care with the Resident/Fellow, if applicable. I also have reviewed and agree with the assessment and plan as stated above and agree with all of its relevant components. Gabo Fuchs MD documented in this encounterSelect [facility] Evaluation note* Encounter Date Diagnosis Assessment Notes Treatment Notes Treatment Clinical Notes Jul, Obstructive sleep apnea (ICD-10 - G47.33) Fortunately, the patient is using and benefiting from treatment. Download was reviewed with patient, Current pressure is controlling apnea well, And we will make no changes at this time. A prescription was sent to the [facility] for new supplies throughout the year. He was encouraged to continue to use his machine nightly, throughout the entire night and for naps as this does provide clinical benefit. He will follow-up in the sleep clinic in 1 year or sooner if problems. Jul,MI 34.0-34.9,adult (ICD-10 - Z68.34)No big changes since last OV. We discussed the benefits of weight control as a long-term resolutionto MATT. Weight loss strategies were reviewed in detail, including decreased overall caloric intake quantity, better food choices and portion control. Emphasis was placed budgeting calories so therecan be room for appropriate quantities of favorite foods, and on making gradual progress rather than seeking short term loss. Weight reduction can be broadly beneficial and have substantial positive e ffects on sleep apnea severity. Jul,OtherCall if any questions or problems. Patient is advised to work on healthy diet choices and appropriate servings, weight control, regular exercise as directed, and reduce fat intake. Use machine regularly, and keep up with mask changes as needed. Call if problems with mask toleration, increased sleepiness, or poor response to treatment. DEQ Other 03-28-2023 History of Present illness Narrative* Gabo Fuchs MD - 07/25/2022 10:00 AM EDT Encounter Diagnosis ICD-10-CM 1. Perforated corneal ulcer of right eye H16.071 2. 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 Pt felt a little fluid coming out yesterday and this morning on his way up here. Corneal glue is present and intact and is holding and leaking does not look to be originated from it. - Epilated lashes from upper lid of the right eye without complication. No infiltrate, no hypopyon, chamber formed and deep but IOP very soft, IOP today is 4 over BCL - Continue moxifloxacin 4 times daily OD PF and Ointment at night. By signing my name below, I, Melichristy Juan, attest that this documentation has been prepared under the direction and in the presence of Dr. Fuchs Electronically signed, Grant Montiel July 25, 2022 9:57 AM I agree with the Chief Complaint, ROS, and Past Histories independently gathered by the clinical program support specialist and the remaining scribed note accurately describes my personal service to the patient. Follow-up in 1 week Call JOSSELYN if worsening signs or symptoms continue smith shield QHS, no eye rubbing possible need to patch graft but favor avoid if possible based on prolonged post-op course/poor healing with multiple previous grafts next visit va iop ou (icare okay over BCL OD) optovue/ant seg oct OD I have confirmed and edited as necessary the relevant ophthalmic history, ROS, and the neuro exam findings as obtained by others. I have seen and examined this patient. I have discussed the case and the management of this patient's care with the Resident/Fellow, if applicable. I also have reviewed and agree with the assessment and plan as stated above and agree with all of its relevant components. Gabo Fuchs MD documented in this encounterSelect [facility]23 History of Present illness Narrative* Gabo Fuchs MD - 07/19/2022 2:39 PM EDT Encounter Diagnosis ICD-10-CM 1. Perforated corneal ulcer of right eye H16.071 2. 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 Patient noticed change in symptoms 1 week ago, pain last night with gush of fluid this morning Urgent visit requested today No infiltrate, no hypopyon, chamber formed and deep but IOP very soft Recommend corneal gluing RBA discussed, patient elects proceed Glue successfully applied with Kun negative postprocedural IOP = 7 Start moxifloxacin 4 times daily OD Bandage contact lens placed right eye Follow-up 5 days Call JOSSELYN if worsening signs or symptoms next visit [facility] iop ou I have confirmed and edited as necessary the relevant ophthalmic history, ROS, and the neuro exam findings as obtained by others. I have seen and examined this patient. I have discussed the case and the management of this patient's care with the Resident/Fellow, if applicable. I also have reviewed and agree with the assessment and plan as stated above and agree with all of its relevant components. Gabo Fuchs MD documented in this encounterSelect [facility]-2023 Miscellaneous Notes* Telephone Encounter - Ruben Nieves - 07/19/2022 11:11 AM EDT Spoke with patient, he can be here around 1:00. * Telephone Encounter - Gabo Fuchs MD - 07/19/2022 9:35 AM EDT Very difficult to know with his eye what is going on but if he is able to come in I am happy to seehim today. If we put him on for same-day access at 12:30 PM I can see him then. * Telephone Encounter - Ruben Nieves - 07/19/2022 9:18 AM EDT LV: 07/12/22 FV: 11/07/22 Patient reports pain (3) yesterday and today, took ibuprofen and feels better. He felt a little dabof fluid that came out of his right eye. He had used eye drops (steroid) 1 hr before that. Patient is about 2.5 hrs away if you want to see him today. Please advise. Gabo Fuchs MD filed at 07/12/2022 8:15 AM Status: Signed Encounter Diagnosis ICD-10-CM 1. S/P PKP (penetrating keratoplasty) Z94.7 2. 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 Trichiasis of left lower eyelid H02.055 EPILATION OF TRICHIASIS, FORCEPS 5. 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 Significant LSCD Neutrophic component (s/p indirect neruotization) Current meds - Prednisolone once daily right eye - Erythromycin ointment bedtime right eye - S/p cryo 1 week ago. Pt with multiple trichiatic lashes right upper lid. Saw Dr. Cool. - Removed one exposed suture from the right eye (@4 O'clock) under slit-lamp without complication. Prophylaxis with [id number]-[id number]. - Continue prednisolone acetate 1% once daily right eye - Continue erythromycin ointment bedtime right eye Two Trichiatic lashes Left lower lid - repeat epilation at slit lamp today. If this is a recurring condition, Advised the patient to continue care with Dr. Cool . No lash in OD today. Discussed option of repeat PKP/possible sutured IOL in future favor defer at present as risk for healing issues is significant without addressing LSCD and NK (already had indirect neurotization procedure with minimal or no corneal sensation). By signing my name below, I, Kaden Martinez, attest that this documentation has been prepared under the direction and in the presence of Dr. Fuchs Electronically signed, Grant Montiel July 11, 2022 1:11 PM I agree with the Chief Complaint, ROS, and Past Histories independently gathered by the clinical program support specialist and the remaining scribed note accurately describes my personal service to the patient. Follow up 4 months next visit va iop ou slit lamp photos od optovue od I have confirmed and edited as necessary the relevant ophthalmic history, ROS, and the neuro exam findings as obtained by others. I have seen and examined this patient. I have discussed the case and the management of this patient's care with the Resident/Fellow, if applicable. I also have reviewed and agree with the assessment and plan as stated above and agree with all of its relevant components. Gabo Fuchs MD documented in this encounterSelect [facility]-2023 History of Present illness Narrative* Gabo Fuchs MD - 05/16/2022 10:15 AM EST Encounter Diagnosis ICD-10-CM 1. Trichiasis of right upper eyelid H02.051 2. S/P PKP (penetrating keratoplasty) Z94.7 3. 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 6. Conjunctival abrasion, right, initial encounter S05.01XA Follow-up complex ocular surface disease with multiple nonhealing corneal ulcers right eye status post penetrating keratoplasty Status post temporary tarsorrhaphy with amniotic membrane graft right eye 09/28/2021 Epithelium closed over corneal surface with vascularized membrane. Exposed suture @ 2 o'clock removed today without complication. Continue prednisolone once daily right eye Continue erythromycin ointment bedtime right eye Multiple Trichiatic lashes right upper lid - repeat epilation at slit lamp today. If this is a recurring condition, Will refer the pt to Oculoplastics. Follow-up 8 weeks next visit va iop ou agree as per above discussed option of repeat PKP/possible sutured IOL in future favor defer at present as risk for healing issues is significant without addressing LSCD and NK (already had indirect neurotization procedure with minimal or no corneal sensation). follow-up 2 months next visit va iop ou I have confirmed and edited as necessary the relevant ophthalmic history, ROS, and the neuro exam findings as obtained by others. I have seen and examined this patient. I have discussed the case and the management of this patient's care with the Resident/Fellow, if applicable. I also have reviewed and agree with the assessment and plan as stated above and agree with all of its relevant components. Gabo Fuchs MD documented in this encounterSelect [facility]-2023 History of Present illness Narrative* Mario Siddiqui MD - 05/02/2022 7:42 AM EST PATIENT NAME: Mak Garces DATE: 05/02/2022 PRIMARY CARE PHYSICIAN: Dr. Romulo Clark OTHER PHYSICIANS: Dr. Gabo Fuchs ([facility] Ophthalmology) Portions of this encounter note have been copied from the note from 02/06/2022 and has been updatedwhere appropriate, and reflect my current medical decision making from today. 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 INTERIM HISTORY: Due to progressive leukocytosis and persistent thrombocytosis the patient's Hydreadose was increased to 1000 mg daily Sunday through Sunday and 500 mg daily Sunday and Sunday on 03/27/2022. The patient is tolerating the higher dose quite well. In fact he feels little better since then. He continues to have issues in regards to his eyes with dryness, pain and poor vision. Overall stable. No new complaints today. MEDICATIONS: erythromycin (ROMYCIN) 5 mg/gram (0.5 %) ophthalmic ointment apply into right eye at bedtime prednisoLONE acetate (PRED FORTE, ECONOPRED PLUS) 1 % ophthalmic suspension Use 1 Drop in the righteye once daily. polyvinyl alcohol-povidone (REFRESH) 1.4-0.6 % ophthalmic solution 1 drop into affected eye as needed hydroxyurea (HYDREA) 500 mg capsule Take 1 capsule by mouth twice daily. Or as directed. predniSONE (DELTASONE) 20 mg tablet Take 1 tablet by mouth once daily. ZINC ORAL Take 140 mg by mouth. levocetirizine 5 mg tablet Take 5 mg by mouth. ascorbic acid, vitamin C, (VITAMIN C) 500 mg tablet Take 500 mg by mouth once daily. vitamin B complex (B-PLEX ORAL) Take by mouth. olmesartan (BENICAR) 40 mg tablet 0.5 tablets once daily. levothyroxine (SYNTHROID) 150 mcg tablet Take 1 tablet by mouth once daily. fluticasone (FLONASE) 50 mcg/actuation nasal spray tamsulosin (FLOMAX) 0.4 mg Take 0.4 mg by mouth daily at bedtime. carboxymethylcellulose (REFRESH TEARS) 0.5 % drop Use 1 Drop in both eyes as needed. 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 PAST SURGICAL HISTORY: PAST SURGICAL HISTORY Procedure Laterality Date CHOLECYSTECTOMY 2011 EYE SURGERY HX Left 01/17/2018 CONJUNCTIVOPLASTY, RECONSTRUCTION CUL-DE-SAC W/ BUCCAL GRAFT (Left EYE SURGERY PROCEDURE Right 10/10/2017 REVISION OR REPAIR OPERATIVE WOUND EYE ANTERIOR SEGMENT MAJOR OR MINOR KERATOPLASTY PENTRG EXCEPT APHAKIA/PSEUDOPHAKIA Right 09/12/2017 PK (Penetrating Keratoplasty) OCULAR SURFACE RECONSTRUCTION AMNIOTIC MEMBRANE REVIEW OF SYSTEMS: General: No weight loss, malaise or fevers. HEENT: Negative for frequent or significant headaches. No changes in hearing, no nose bleeds or other nasal problems. Positive right eye issues. Respiratory: Negative for cough, wheezing or shortness of breath. Cardiovascular: Negative for chest pain, leg swelling or palpitations. GI: Negative for abdominal discomfort, blood in stools or black stools or change in bowel habits. : No history of dysuria, frequency or incontinence. Musculoskeletal: Negative for joint pain or swelling, back pain and muscle pain. Skin: Negative for lesions, rash and itching. Hematology/Lymphology: Negative for prolonged bleeding, bruising easily or swollen nodes. Neuro: No history of headaches, syncope, paralysis, seizures or tremors. PHYSICAL EXAM: Vitals: BP 139/85 Pulse 98 Temp 36.6 C (97.8 F) (Temporal) Resp 16 Ht 188 cm (6' 2.02 ) Wt 127.6 kg (281 lb 6.4 oz) SpO2 97% BMI 36.11 kg/m ECOG 0 Exam limited to gross visualization where appropriate due to COVID-19. Gen.: This is an age-appropriate patient in no acute distress. Head: Appears atraumatic with no visible lesions. Eyes: Pupils equally round and reactive to light, extraocular muscles are intact. Neck: Supple. Mouth: Masked. Respiratory: Appears to be respiring comfortably. Neurologic: Nonfocal to gross visualization. Alert and oriented 3. Psychiatric: No evidence of inappropriate anxiety or depression. Skin: Visible areas of skin without rash, lesions, wounds or petechiae. 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 LABORATORY DATA: Hemoglobin (g/dL) Date Value 05/02/2022 12.5 06/24/2021 12.1 Hematocrit (%) Date Value 05/02/2022 43.3 06/24/2021 40.2 WBC (k/uL) Date Value 05/02/2022 11.34 06/24/2021 15.87 Platelet Count (k/uL) Date Value 05/02/2022 433 06/24/2021 455 RADIOLOGY/OTHER STUDIES: 05/28/2017 MRI orbit IMPRESSION: Normal study. Known abnormality of orbital adnexa not appreciated on this examination. No intracranial masses. 05/11/2017 PET scan IMPRESSION: 1. HEAD/NECK: No FDG avid neoplastic process. No hypermetabolic mass, adenopathy, or fluid collection. 2. CHEST: No FDG avid neoplastic process. No hypermetabolic mass, adenopathy, or fluid collection. 3. ABDOMEN/PELVIS: No FDG avid neoplastic process. No hypermetabolic mass, adenopathy, or fluid collection. 4. EXTREMITIES/SKELETON: No FDG avid osseous process. ASSESSMENT/PLAN: 1. Polycythemia vera (HCC) - ICD9: 238.4, ICD10: D45 (primary diagnosis) Polycythemia vera initially diagnosed September 2014 after presenting with chronic thrombocytosis and leukocytosis (and iron deficiency at the time). Initial evaluation revealed a positive JAK2 mutation. Primary treatment with Hydrea and aspirin started at the time of diagnosis. Currently on Hydrea 1000mg daily Sunday through Sunday plus 500 mg on Sunday and Sunday since 03/27/2022. The patient also takes aspirin 81 mg daily, and undergoes phlebotomy for hematocrit greater than 45%. The patient is currently clinically stable, but he is concerned about the significance of his persistent thrombocytosis. Options for management were discussed, and we elected to increase the Hydrea to 1000 mg daily. We will check a CBC in 4 weeks, and arrange for phlebotomy if hematocrit greater than 45%. He will return in 8 weeks for follow-up and labs. 2. 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 Status post primary treatment with bilateral conjunctival radiation therapy completed June 2017 (24 Galindo in 12 fractions). He has had no evidence of recurrent lymphoma sincecompleting treatment, but has had multiple complications involving his eyes requiring multiple ophthalmologic procedures (7 on right eye, 2 on left eye). He will follow-up with ophthalmology as scheduled. 3. Acquired hypothyroidism - ICD9: 244.9, ICD10: E03.9 Stable on current medications, continue per PCP. Mario Siddiqui MD documented in this encounterSelect [facility] History of Present illness Narrative* Gabo Fuchs MD - 04/16/2022 1:50 PM EST Encounter Diagnosis ICD-10-CM 1. Trichiasis of right upper eyelid H02.051 EPILATION OF TRICHIASIS, FORCEPS 2. S/P PKP (penetrating keratoplasty) Z94.7 3. 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 6. Conjunctival abrasion, right, initial encounter S05.01XA Follow-up complex ocular surface disease with multiple nonhealing corneal ulcers right eye status post penetrating keratoplasty Status post temporary tarsorrhaphy with amniotic membrane graft right eye 09/28/2021 Epithelium closed over corneal surface with vascularized membrane ? New inferior conjunctival abrasion -possible toxicity to gentamicin Recommend discontinue gentamicin Continue prednisolone once daily right eye Continue erythromycin ointment bedtime right eye Multiple trichiatic lashes right upper lid -epilated at slit-lamp Follow-up 4 weeks next visit [facility] I have confirmed and edited as necessary the relevant ophthalmic history, ROS, and the neuro exam findings as obtained by others. I have seen and examined this patient. I have discussed the case and the management of this patient's care with the Resident/Fellow, if applicable. I also have reviewed and agree with the assessment and plan as stated above and agree with all of its relevant components. Gabo Fuchs MD documented in this encounterSelect [facility]12-02-2022 Miscellaneous Notes* Telephone Encounter - Noni Barraza RN - 03/31/2022 4:35 PM EST Call placed to pt. No answer. Left message informing pt of Dr Siddiqui's instructions and to return call if any questions/concerns. Noni Barraza RN * Telephone Encounter - Lissa Cassidy RN - 03/31/2022 4:27 PM EST Noni- can you call and notify patient. Thank you Lissa Cassidy RN * Telephone Encounter - Mario Siddiqui MD - 03/27/2022 12:32 PM EST Bumping the dose slightly may be of benefit. I would suggest 1000 mg Sunday through Sunday, 500 mg on Sunday. This may be just enough to bring his hematocrit less than 45%, and not let the white count or platelet count drop too much. Thanks, BRM * Telephone Encounter - Lissa Cassidy RN - 03/27/2022 10:51 AM EST Patient states he is taking Hydroxurea 500mg 1 tab alternating with 2 tabs. He is wondering if thisshould be adjusted. Please review and advise. Lissa Cassidy RN documented in this encounterSelect Medical [facility]11-01-2022 History of Present illness Narrative* Gabo Fuchs MD - 02/28/2022 11:06 AM EDT Encounter Diagnosis ICD-10-CM 1. 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 S/P PKP (penetrating keratoplasty) Z94.7 3. Trichiasis of left lower eyelid without entropion H02.055 EPILATION OF TRICHIASIS, FORCEPS Follow-up nonhealing epithelial defect right eye in the setting of limbal stem cell deficiency and severe neurotrophic disease Status post sutured amniotic membrane graft with tarsorrhaphy right eye 09/2021 Status postconversion of temporary tarsorrhaphy to permanent lateral tarsorrhaphy right eye approximately 11/[address] Cool Tarsorrhaphy is only about 20% lateral currently but able to retain contact lens Surface appears to be stabilizing as the cornea vascular rises Still an area of staining inferiorly as drawn but appears to be more elevated loose epithelium rather than ulceration, no visible areas of impending thinning or high risk for perforation Epilated lashes from left lower lid Bandage contact lens placed today OD Kontur 16mm BC = 8.6 Prophylaxis with gent BID Continue prednisolone once daily right eye follow-up 4 to 6 weeks next visit [facility] I have confirmed and edited as necessary the relevant ophthalmic history, ROS, and the neuro exam findings as obtained by others. I have seen and examined this patient. I have discussed the case and the management of this patient's care with the Resident/Fellow, if applicable. I also have reviewed and agree with the assessment and plan as stated above and agree with all of its relevant components. Gabo Fuchs MD documented in this encounterSelect [facility]10-31-2022 Miscellaneous Notes* Telephone Encounter - FAROOQ Ortiz - 02/27/2022 9:10 AM EDT Last visit 02/07/2022 Next visit 02/28/[address] Fuchs Central corneal ulcer of right eye Bandage contact lens placed today RIGHT EYE Patient phones requesting refills as follows: Requested Prescriptions Pending Prescriptions Disp Refills erythromycin (ROMYCIN) 5 mg/gram (0.5 %) ophthalmic ointment [Pharmacy Med Name: ERYTHROMYCIN 0.5% EYE OINTMENT] 3.5 g 2 Sig: apply into right eye at bedtime Please review and advise. FAROOQ Ortiz documented in this encounterSelect [facility]10-12-2022 History of Present illness Narrative* Gabo Fuchs MD - 02/08/2022 6:32 PM EDT Encounter Diagnosis ICD-10-CM 1. 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 S/P PKP (penetrating keratoplasty) Z94.7 3. 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 Trichiasis of left lower eyelid without entropion H02.055 Follow-up nonhealing epithelial defect right eye in the setting of limbal stem cell deficiency and severe neurotrophic disease Status post sutured amniotic membrane graft with tarsorrhaphy right eye Status postconversion of temporary tarsorrhaphy to permanent lateral tarsorrhaphy right eye approximately [address] Cool Per patient noted that eye opened up recently Tarsorrhaphy is only about 20% lateral currently but should be enough to hold contact lens decrease pred acetate 1% to every day od Bandage contact lens placed today OD Kontur 16mm BC = 8.6 Prophylaxis with gent BID follow-up 2-3 weeks next visit [facility] if remains open consider discontinue steroids I have confirmed and edited as necessary the relevant ophthalmic history, ROS, and the neuro exam findings as obtained by others. I have seen and examined this patient. I have discussed the case and the management of this patient's care with the Resident/Fellow, if applicable. I also have reviewed and agree with the assessment and plan as stated above and agree with all of its relevant components. Gabo Fuchs MD documented in this encounterSelect [facility]10-10-2022 History of Present illness Narrative* Nicolasa SAMIA Donovan.METER/RELAY CRAFTSMAN - 02/06/2022 9:02 AM EDT PATIENT NAME: Mak Garces DATE: 02/06/2022 PRIMARY CARE PHYSICIAN: Dr. Romulo Clark OTHER PHYSICIANS: Dr. Gabo Fuchs ([facility] Ophthalmology) Portions of this encounter note have been copied from the note from 11/14/2021 and has been updated where appropriate, and reflect my current medical decision making from today. 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 INTERIM HISTORY: Mak Garces returns for scheduled follow up. He remains on Hydrea 1000 mg daily alternating with Hydrea 500 mg daily. He is tolerating well. He denies any signs of bleeding or abnormal bruising. He denies any signs of blood clots. No leg swelling, shortness of breath or chest pain. He is scheduled with Dr. Fuchs on 12/29/2021 for additional eye surgery. Overall, he is doing well. MEDICATIONS: [id number] 3.5 MG/ML-10,000 UNIT/ML-0.1% EYE DROPS instill 1 drop into right eye four times a day polyvinyl alcohol-povidone (REFRESH) 1.4-0.6 % ophthalmic solution 1 drop into affected eye as needed moxifloxacin (VIGAMOX) 0.5 % ophthalmic solution Not Available gentamicin (GENTAK) 0.3 % ophthalmic solution Use 1 Drop in the right eye twice daily. prednisoLONE acetate (PRED FORTE, ECONOPRED PLUS) 1 % ophthalmic suspension 1 Drop twice daily. erythromycin (ROMYCIN) 5 mg/gram (0.5 %) ophthalmic ointment Use 1 application in the right eye daily at bedtime. hydroxyurea (HYDREA) 500 mg capsule Take 1 capsule by mouth twice daily. Or as directed. predniSONE (DELTASONE) 20 mg tablet Take 1 tablet by mouth once daily. ZINC ORAL Take 140 mg by mouth. levocetirizine 5 mg tablet Take 5 mg by mouth. ascorbic acid, vitamin C, (VITAMIN C) 500 mg tablet Take 500 mg by mouth once daily. vitamin B complex (B-PLEX ORAL) Take by mouth. olmesartan (BENICAR) 40 mg tablet 0.5 tablets once daily. levothyroxine (SYNTHROID) 150 mcg tablet Take 1 tablet by mouth once daily. fluticasone (FLONASE) 50 mcg/actuation nasal spray tamsulosin (FLOMAX) 0.4 mg Take 0.4 mg by mouth daily at bedtime. carboxymethylcellulose (REFRESH TEARS) 0.5 % drop Use 1 Drop in both eyes as needed. 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 HEENT: Negative for frequent or significant headaches. No changes in hearing, no nose bleeds or other nasal problems. Positive right eye issues. Respiratory: Negative for cough, wheezing or shortness of breath. Cardiovascular: Negative for chest pain, leg swelling or palpitations. GI: Negative for abdominal discomfort, blood in stools or black stools or change in bowel habits. : No history of dysuria, frequency or incontinence. Musculoskeletal: Negative for joint pain or swelling, back pain and muscle pain. Skin: Negative for lesions, rash and itching. Hematology/Lymphology: Negative for prolonged bleeding, bruising easily or swollen nodes. Neuro: No history of headaches, syncope, paralysis, seizures or tremors. PHYSICAL EXAM: Vitals: BP 139/94 Pulse 89 Temp 37 C (98.6 F) (Temporal) Resp 16 Ht 188 cm (6' 2.02 ) Wt 127.3 kg (280 lb 9.6 oz) SpO2 98% BMI 36.01 kg/m ECOG 0 Exam limited to gross visualization where appropriate due to COVID-19. Gen.: This is an age-appropriate patient in no acute distress. Head: Appears atraumatic with no visible lesions. Eyes: Pupils equally round and reactive to light, extraocular muscles are intact. Neck: Supple. Mouth: Masked. Respiratory: Appears to be respiring comfortably. Neurologic: Nonfocal to gross visualization. Alert and oriented 3. Psychiatric: No evidence of inappropriate anxiety or depression. Skin: Visible areas of skin without rash, lesions, wounds or petechiae. 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 LABORATORY DATA:. Hemoglobin (g/dL) Date Value 02/06/2022 13.0 06/24/2021 12.1 Hematocrit (%) Date Value 02/06/2022 43.8 06/24/2021 40.2 WBC (k/uL) Date Value 02/06/2022 12.90 06/24/2021 15.87 Platelet Count (k/uL) Date Value 02/06/2022 504 06/24/2021 455 RADIOLOGY/OTHER STUDIES: 05/28/2017 MRI orbit IMPRESSION: Normal study. Known abnormality of orbital adnexa not appreciated on this examination. No intracranial masses. 05/11/2017 PET scan IMPRESSION: 1. HEAD/NECK: No FDG avid neoplastic process. No hypermetabolic mass, adenopathy, or fluid collection. 2. CHEST: No FDG avid neoplastic process. No hypermetabolic mass, adenopathy, or fluid collection. 3. ABDOMEN/PELVIS: No FDG avid neoplastic process. No hypermetabolic mass, adenopathy, or fluid collection. 4. EXTREMITIES/SKELETON: No FDG avid osseous process. ASSESSMENT/PLAN: 1. Polycythemia vera (HCC) - ICD9: 238.4, ICD10: D45 (primary diagnosis) P vera diagnosed September 2014 after presenting with chronic thrombocytosis and leukocytosis (and iron deficiency at the time). Initial evaluation revealed a positive JAK2 mutation. Primary treatment with Hydrea and aspirin started at the time of diagnosis. Currently on Hydrea 1000 mg daily alternatingwith 500 mg daily since Apr 2021. The patient also takes aspirin 81 mg daily, and undergoes phlebotomy for hematocrit greater than 45%. The patient is currently clinically stable and CBC is stable. The patient will continue as is with his current dose of Hydrea. We will check a CBC in 6 weeks, and arrange for phlebotomy if hematocrit greater than 45%. He will return in 12 weeks for follow-up and labs. 2. 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 Status post primary treatment with bilateral conjunctival radiation therapy completed June 2017 (24 Galindo in 12 fractions). He has had no evidence of recurrent lymphoma sincecompleting treatment, but has had multiple complications involving his eyes requiring multiple ophthalmologic procedures (7 on right eye, 2 on left eye). He will follow-up with ophthalmology as scheduled. 3. Acquired hypothyroidism - ICD9: 244.9, ICD10: E03.9 Stable on current medications, continue per PCP. Nicolasa Donovan APRN.VALERIANO I spent a total of 30 minutes on the date of the service which included preparing to see the patient, [id number] patient care, completing clinical documentation, obtaining and/or reviewing separately obtained history, performing a medically appropriate examination, counseling and educating the pat ient/family/caregiver, ordering medications, tests, or procedures, independently interpreting results (not separately reported), and communicating results to the patient/family/caregiver. documented in this encounterSelect Medical [facility]10-05-2022 Miscellaneous Notes* Telephone Encounter - Imani Moses - 02/01/2022 2:35 PM EDT Patient's request for medication is as follows: Requested Prescriptions Pending Prescriptions Disp Refills gentamicin (GENTAK) 0.3 % ophthalmic solution 5 mL 2 Sig: Use 1 Drop in the right eye twice daily. Prescription(s) as above. Please process accordingly. Imani Moses FV: 02/07/2022 LV: 01/05/2022 Gabo Fuchs MD filed at 01/05/2022 8:31 AM Status: Signed Encounter Diagnosis ICD-10-CM 1. S/P PKP (penetrating keratoplasty) Z94.7 2. 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 Cool) good closure, BCL in place possibly one loose suture nasally but defer attempt to remove as BCL likely cannot be replaced one symptomatic trichiatic lash LLL - epilated seeing dr. cool for suture removal in 1-2 weeks follow-up 4-5 weeks next visit [facility] plan remove BCL OD, hopefully can remain out in future discussed vascular surface may continue to compromise future attempts to repair cornea -- goal is stability at present I have confirmed and edited as necessary the relevant ophthalmic history, ROS, and the neuro exam findings as obtained by others. I have seen and examined this patient. I have discussed the case and the management of this patient's care with the Resident/Fellow, if applicable. I also have reviewed and agree with the assessment and plan as stated above and agree with all of its relevant components. Gabo Fuchs MD documented in this encounterSelect [facility]09-[facility]-2022 Miscellaneous Notes* Telephone Encounter - Ruben Nieves - 01/05/2022 8:45 AM EDT Patient returned call and has been scheduled. * Telephone Encounter - Ruben Nieves - 01/05/2022 8:34 AM EDT Images from the original note were not included. Left detailed message for patient via voicemail. Left office number to return call. Message Received: Today MD Ruben Wright can you please offer him a follow-up appt on 02/07 or 02/14? thanks documented in this encounterSelect [facility]09-[facility]-2022 History of Present illness Narrative* Gabo Fuchs MD - 01/05/2022 8:25 AM EDT Encounter Diagnosis ICD-10-CM 1. S/P PKP (penetrating keratoplasty) Z94.7 2. 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 Cool) good closure, BCL in place possibly one loose suture nasally but defer attempt to remove as BCL likely cannot be replaced one symptomatic trichiatic lash LLL - epilated seeing dr. cool for suture removal in 1-2 weeks follow-up 4-5 weeks next visit [facility] plan remove BCL OD, hopefully can remain out in future discussed vascular surface may continue to compromise future attempts to repair cornea -- goal is stability at present I have confirmed and edited as necessary the relevant ophthalmic history, ROS, and the neuro exam findings as obtained by others. I have seen and examined this patient. I have discussed the case and the management of this patient's care with the Resident/Fellow, if applicable. I also have reviewed and agree with the assessment and plan as stated above and agree with all of its relevant components. Gabo Fuchs MD documented in this encounterSelect Medical [facility]09-06-2022 Miscellaneous Notes* Telephone Encounter - Ruben Nieves - 01/03/2022 3:29 PM EDT Left message via voicemail to contact office to arrange appointment date and time. Waiting to hear back. * Telephone Encounter - Gabo Fuchs MD - 01/03/2022 2:43 PM EDT Can you please offer him an appt to see me tomorrow (sun) or at 11:00am? If Sunday through , if add to my clinic. Thanks * Telephone Encounter - Imani Moses - 12/30/2021 11:45 AM EDT Patient is calling stating he had his surgery with Dr. Cool yesterday, and was calling to schedule with you. Per your note, you wanted to see the patient 1 to 2 week after the surgery, however, there are no openings. Is there a day we can scheduled the patient to be seen within this time frame. FV: 02/21/2022 LV: 11/17/2021 Gabo Fuchs MD filed at 11/17/2021 4:26 PM Status: Signed Encounter Diagnosis ICD-10-CM 1. S/P PKP (penetrating keratoplasty) Z94.7 2. 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 6 weeks s/p multilayered AMG +temp tars for non healing K ulcer following PKP/ECCE/anterior vit OD ocular surface looks to be intact but vision will remain compromised 2/2 scarring without additional corneal transplant surgery negative ANCA (father had wegeners) temp tars suture has been in 6 weeks but minimal irritation and no dermatitis but needs to be removed based on multiple recurrent melts, favor convert to 40% perm lateral tarsorrhaphy R side rather than release outright discussed goal at present is maintain ocular surface consider revisit repeat corneal surgery in future but wait minimum 4-6 months prefers to have lid surgery done locally -- will send letter to Dr. Kyler Cool who performed previous entropion repair will plan follow-up me 1-2 weeks after lid surgery patient requests exam for driving license -- mrx given for distance next visit [facility] I have confirmed and edited as necessary the relevant ophthalmic history, ROS, and the neuro exam findings as obtained by others. I have seen and examined this patient. I have discussed the case and the management of this patient's care with the Resident/Fellow, if applicable. I also have reviewed and agree with the assessment and plan as stated above and agree with all of its relevant components. Gabo Fuchs MD documented in this encounterSelect Medical [facility]08-29-2022 Miscellaneous Notes* Telephone Encounter - Taylor Khalil RN - 12/26/2021 2:10 PM EDT Message left regarding BRM note. Encouraged to call back for any additional questions or concerns. Taylor Khalil RN * Telephone Encounter - Taylor Khalil RN - 12/26/2021 2:10 PM EDT ----- Message from Mario Siddiqui MD sent at 12/26/2021 12:42 PM EDT ----- Please inform the patient that his CBC is stable. He should continue his current dose of Hydrea, and we will see him back as scheduled. Thanks, BRDesiree documented in this encounterSelect Medical [facility]08-29-2022 History of Present illness Narrative* Lissa Cassidy RN - 12/26/2021 8:52 AM EDT Patient HGB 41.4 today. Parameters for phlebotomy is >45. Patient does not qualify today. Patient notified and verbalized understanding. Lissa Cassidy RN documented in this encounterSelect Medical [facility]07-28-2022 Miscellaneous Notes* Telephone Encounter - Gabo Fuchs MD - 11/24/2021 6:49 AM EDT If he is not having pain in the eyelid, it could wait until 12/29 but I should take a look at him in November. We can offer 11am on 12/14, thanks * Telephone Encounter - Ruben Nieves - 2021 2:54 PM EDT LV: 11/17/21 FV: 02/21/22 Patient scheduled appointment with Dr. Cool for 12/29/21 he is wondering if that is ok with you or, would you like him to have it done sooner possibly with Dr. Salazar? Please advise. Gabo Fuchs MD filed at 11/17/2021 4:26 PM Status: Signed Encounter Diagnosis ICD-10-CM 1. S/P PKP (penetrating keratoplasty) Z94.7 2. 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 6 weeks s/p multilayered AMG +temp tars for non healing K ulcer following PKP/ECCE/anterior vit OD ocular surface looks to be intact but vision will remain compromised 2/2 scarring without additional corneal transplant surgery negative ANCA (father had wegeners) temp tars suture has been in 6 weeks but minimal irritation and no dermatitis but needs to be removed based on multiple recurrent melts, favor convert to 40% perm lateral tarsorrhaphy R side rather than release outright discussed goal at present is maintain ocular surface consider revisit repeat corneal surgery in future but wait minimum 4-6 months prefers to have lid surgery done locally -- will send letter to Dr. Kyler Cool who performed previous entropion repair will plan follow-up me 1-2 weeks after lid surgery patient requests exam for driving license -- mrx given for distance next visit [facility] I have confirmed and edited as necessary the relevant ophthalmic history, ROS, and the neuro exam findings as obtained by others. I have seen and examined this patient. I have discussed the case and the management of this patient's care with the Resident/Fellow, if applicable. I also have reviewed and agree with the assessment and plan as stated above and agree with all of its relevant components. Gabo Fuchs MD documented in this encounterSelect Medical [facility]07-[facility]22 History of Present illness Narrative* Gabo Fuchs MD - 11/16/2021 10:55 AM EDT Encounter Diagnosis ICD-10-CM 1. S/P PKP (penetrating keratoplasty) Z94.7 2. 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 6 weeks s/p multilayered AMG +temp tars for non healing K ulcer following PKP/ECCE/anterior vit OD ocular surface looks to be intact but vision will remain compromised 2/2 scarring without additional corneal transplant surgery negative ANCA (father had wegeners) temp tars suture has been in 6 weeks but minimal irritation and no dermatitis but needs to be removed based on multiple recurrent melts, favor convert to 40% perm lateral tarsorrhaphy R side rather than release outright discussed goal at present is maintain ocular surface consider revisit repeat corneal surgery in future but wait minimum 4-6 months prefers to have lid surgery done locally -- will send letter to Dr. Kyler Cool who performed previous entropion repair will plan follow-up me 1-2 weeks after lid surgery patient requests exam for driving license -- mrx given for distance next visit [facility] I have confirmed and edited as necessary the relevant ophthalmic history, ROS, and the neuro exam findings as obtained by others. I have seen and examined this patient. I have discussed the case and the management of this patient's care with the Resident/Fellow, if applicable. I also have reviewed and agree with the assessment and plan as stated above and agree with all of its relevant components. Gabo Fuchs MD documented in this encounterSelect [facility] Miscellaneous Notes* Telephone Encounter - Gabo Fuchs MD - 11/15/2021 6:49 AM EDT done.thanks * Telephone Encounter - Ruben Nieves - 11/14/2021 11:47 AM EDT LV: 10/26/2021 FV: 11/16/21 Patient is requesting a refill on Gentamyicin eye drop but, I don't see it on his med list. Please advise. Gabo Fuchs MD filed at 10/26/2021 12:04 PM Status: Signed Encounter Diagnosis ICD-10-CM 1. S/P PKP (penetrating keratoplasty) Z94.7 2. 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 I have seen and examined this patient. I have discussed the case and the management of this patient's care with the Resident/Fellow, if applicable. I also have reviewed and agree with the assessment and plan as stated above and agree with all of its relevant components. Gabo Fuchs MD documented in this encounterSelect [facility] History of Present illness Narrative* Mario Siddiqui MD - 11/14/2021 7:33 AM EDT PATIENT NAME: Mak Garces DATE: 11/14/2021 PRIMARY CARE PHYSICIAN: Dr. Romulo Clark OTHER PHYSICIANS: Dr. Gabo Fuchs ([facility] Ophthalmology) Portions of this encounter note have been copied from the note from 07/25/2021 and has been updated where appropriate, and reflect my current medical decision making from today. 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 INTERIM HISTORY: Since the patient's last visit here he has remained on Hydrea 1000 mg daily alternating with 500 mg daily. He is tolerating this well. He weaned off prednisone as of 11/03/2021. His ocular symptoms persist but overall are stable. He otherwise feels well today with no new complaints. No unusual pain or shortness of breath. MEDICATIONS: erythromycin (ROMYCIN) 5 mg/gram (0.5 %) ophthalmic ointment Use 1 application in the right eye daily at bedtime. hydroxyurea (HYDREA) 500 mg capsule Take 1 capsule by mouth twice daily. Or as directed. predniSONE (DELTASONE) 20 mg tablet Take 1 tablet by mouth once daily. ZINC ORAL Take 140 mg by mouth. levocetirizine (XYZAL) 5 mg tablet Take 5 mg by mouth. ascorbic acid, vitamin C, (VITAMIN C) 500 mg tablet Take 500 mg by mouth once daily. vitamin B complex (B-PLEX ORAL) Take by mouth. olmesartan (BENICAR) 40 mg tablet 0.5 tablets once daily. levothyroxine (SYNTHROID) 150 mcg tablet Take 1 tablet by mouth once daily. fluticasone (FLONASE) 50 mcg/actuation nasal spray tamsulosin (FLOMAX) 0.4 mg Take 0.4 mg by mouth daily at bedtime. carboxymethylcellulose (REFRESH TEARS) 0.5 % drop Use 1 Drop in both eyes as needed. 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 HEENT: Negative for frequent or significant headaches. No changes in hearing, no nose bleeds or other nasal problems. Positive right eye issues. Respiratory: Negative for cough, wheezing or shortness of breath. Cardiovascular: Negative for chest pain, leg swelling or palpitations. GI: Negative for abdominal discomfort, blood in stools or black stools or change in bowel habits. : No history of dysuria, frequency or incontinence. Musculoskeletal: Negative for joint pain or swelling, back pain and muscle pain. Skin: Negative for lesions, rash and itching. Hematology/Lymphology: Negative for prolonged bleeding, bruising easily or swollen nodes. Neuro: No history of headaches, syncope, paralysis, seizures or tremors. PHYSICAL EXAM: Vitals: BP 143/87 Pulse 82 Temp 36.1 C (97 F) (Temporal) Resp 16 Ht 188 cm (6' 2.02 ) Wt 127 kg (280 lb) SpO2 98% BMI 35.93 kg/m Exam limited to gross visualization where appropriate due to COVID-19. Gen.: This is an age-appropriate patient in no acute distress. Head: Appears atraumatic with no visible lesions. Eyes: Pupils equally round and reactive to light, extraocular muscles are intact. Neck: Supple. Mouth: Masked. Respiratory: Appears to be respiring comfortably. Neurologic: Nonfocal to gross visualization. Alert and oriented 3. Psychiatric: No evidence of inappropriate anxiety or depression. Skin: Visible areas of skin without rash, lesions, wounds or petechiae. 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 LABORATORY DATA:. Hemoglobin (g/dL) Date Value 11/14/2021 12.1 06/24/2021 12.1 Hematocrit (%) Date Value 11/14/2021 43.4 06/24/2021 40.2 WBC (k/uL) Date Value 11/14/2021 13.51 06/24/2021 15.87 Platelet Count (k/uL) Date Value 11/14/2021 430 06/24/2021 455 RADIOLOGY/OTHER STUDIES: 05/28/2017 MRI orbit IMPRESSION: Normal study. Known abnormality of orbital adnexa not appreciated on this examination. No intracranial masses. 05/11/2017 PET scan IMPRESSION: 1. HEAD/NECK: No FDG avid neoplastic process. No hypermetabolic mass, adenopathy, or fluid collection. 2. CHEST: No FDG avid neoplastic process. No hypermetabolic mass, adenopathy, or fluid collection. 3. ABDOMEN/PELVIS: No FDG avid neoplastic process. No hypermetabolic mass, adenopathy, or fluid collection. 4. EXTREMITIES/SKELETON: No FDG avid osseous process. ASSESSMENT/PLAN: 1. Polycythemia vera (HCC) - ICD9: 238.4, ICD10: D45 (primary diagnosis) P vera diagnosed September 2014 after presenting with chronic thrombocytosis and leukocytosis (and iron deficiency at the time). Initial evaluation revealed a positive JAK2 mutation. Primary treatment with Hydrea and aspirin started at the time of diagnosis. Currently on Hydrea 1000 mg daily alternatingwith 500 mg daily since Apr 2021. The patient also takes aspirin 81 mg daily, and undergoes phlebotomy for hematocrit greater than 45%. The patient is currently clinically stable and CBC is stable. The patient will continue as is with his current dose of Hydrea. We will check a CBC in 6 weeks, and arrange for phlebotomy if hematocrit greater than 45%. He will return in 12 weeks for follow-up and labs. 2. 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 Status post primary treatment with bilateral conjunctival radiation therapy completed June 2017 (24 Galindo in 12 fractions). He has had no evidence of recurrent lymphoma sincecompleting treatment, but has had multiple complications involving his eyes requiring multiple ophthalmologic procedures (7 on right eye, 2 on left eye). He will follow-up with ophthalmology as scheduled. 3. Acquired hypothyroidism - ICD9: 244.9, ICD10: E03.9 Stable on current medications, continue per PCP. Mario Siddiqui MD documented in this encounterSelect Medical [facility]06-29-2022 History of Present illness Narrative* Gabo Fuchs MD - 10/26/2021 12:02 PM EDT Encounter Diagnosis ICD-10-CM 1. S/P PKP (penetrating keratoplasty) Z94.7 2. 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 I have seen and examined this patient. I have discussed the case and the management of this patient's care with the Resident/Fellow, if applicable. I also have reviewed and agree with the assessment and plan as stated above and agree with all of its relevant components. Gabo Fucsh MD documented in this encounterSelect Medical [facility]06-29-2022 Instructions* Patient Instructions* Gabo Fuchs MD - 10/26/2021 11:20 AM EDT RESTART CEFTAZADIME (REFRIGERATED DROP): TWICE DAILY RIGHT EYE RESTART PREDNISOLONE (PINK OR WHITE CAP): TWICE DAILY RIGHT EYE TAKE ONE QUARTER PREDNISONE TABLE DAILY FOR 1 WEEK THEN STOP ERYTHROMYCIN OINTMENT: TWICE DAILY EXTERNALLY documented in this encounterSelect Medical [facility]06-26-2022 Miscellaneous Notes* Telephone Encounter - Mario Siddiqui MD - 10/23/2021 10:24 PM EDT Yes I would recommend he stay on the same Hydrea dose for now. Thanks, BRM * Telephone Encounter - Nasir Garrett RN - 10/17/2021 5:57 PM EDT Patient did not qualify for Phlebotomy today Hct 44.1/he would like to make sure you are aware thathe is on a prednisone taper per Dr Fuchs and would like to know if he should stay on the same Hydrea dose. Please advise Nasir Garrett RN documented in this encounterSelect Medical [facility]06-23-2022 Miscellaneous Notes* Telephone Encounter - Imani Josué - 10/20/2021 11:25 AM EDT Patient's request for medication is as follows: Pending Prescriptions Disp Refills ERYTHROMYCIN 5 MG/GRAM (0.5 %) EYE OINTMENT 3.5 g 2 Sig: Use 1 application in the right eye daily at bedtime. MARTITA: No Prescription(s) as above. Please process accordingly. Imani Moses Patient says he is using the following medication QID. FV: 10/26/2021 (SDA) LV: 10/06/2021 Gabo Fuchs MD filed at 10/06/2021 3:03 PM Status: Signed Encounter Diagnosis ICD-10-CM 1. 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 S/P PKP (penetrating keratoplasty) Z94.7 3. 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 Exposure keratoconjunctivitis of right eye H16.211 follow-up non healing ulcer OD with multilayered AMG + PSTK - grafts appear well positioned continue erythromycin kd only decrease po pred to 10mg daily follow-up me 3 weeks next visit [facility] consider release tarsorrhaphy, discussed possible conversion to perm tarsorrhaphy for months+ to limit reulceration based on multiple melts and persistent neurotrophic dz I have confirmed and edited as necessary the relevant ophthalmic history, ROS, and the neuro exam findings as obtained by others. I have seen and examined this patient. I have discussed the case and the management of this patient's care with the Resident/Fellow, if applicable. I also have reviewed and agree with the assessment and plan as stated above and agree with all of its relevant components. Gabo Fuchs MD documented in this encounterSelect Medical [facility]06-20-2022 History of Present illness Narrative* Nasir Garrett RN - 10/17/2021 11:50 AM EDT Patient given a copy of his results, para,eters not met for Phlebo, patient verbalizes understanding Nasir Garrett RN * Tennille Eng RN - 10/17/2021 10:10 AM EDT Hct 44.1 today, does not meet parameters for phleb. Tennille Eng RN documented in this encounterSelect Medical [facility]06-10-2022 Miscellaneous Notes* Telephone Encounter - Emily Ta RN - 10/07/2021 12:19 PM EDT Pt confirms that he is taking 1 tab alternating w/ 2 tabs daily. Requests a 90 day supply be sent to [facility]. BRM: Script pended. Please review and approve. Thanks! Emily Ta RN * Telephone Encounter - Emily Ta RN - 10/07/2021 12:07 PM EDT Voicemail message received from pt requesting refill of his Hydrea. Call placed to pt to verify dose and pharmacy. No answer. Message left requesting call back. Emily Ta, RN documented in this encounterSelect Medical [facility]06-09-2022 History of Present illness Narrative* Gabo Fuchs MD - 10/06/2021 2:58 PM EDT Encounter Diagnosis ICD-10-CM 1. 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 S/P PKP (penetrating keratoplasty) Z94.7 3. 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 Exposure keratoconjunctivitis of right eye H16.211 follow-up non healing ulcer OD with multilayered AMG + PSTK - grafts appear well positioned continue erythromycin kd only decrease po pred to 10mg daily follow-up me 3 weeks next visit [facility] consider release tarsorrhaphy, discussed possible conversion to perm tarsorrhaphy for months+ to limit reulceration based on multiple melts and persistent neurotrophic dz I have confirmed and edited as necessary the relevant ophthalmic history, ROS, and the neuro exam findings as obtained by others. I have seen and examined this patient. I have discussed the case and the management of this patient's care with the Resident/Fellow, if applicable. I also have reviewed and agree with the assessment and plan as stated above and agree with all of its relevant components. Gabo Fuchs MD documented in this encounterSelect [facility]06-[facility]-2022 History of Present illness Narrative* Gabo Fuchs MD - 09/30/2021 12:55 PM EDT Encounter Diagnosis ICD-10-CM 1. 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 S/P PKP (penetrating keratoplasty) Z94.7 3. 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 Exposure keratoconjunctivitis of right eye H16.211 defect looks worse than described last visit tarsorrhaphy came out yesterday per patient recommend OR for multilayer AMG + temp tarsorrhaphy continue ceftaz bid + erythromycin kd in meantime occlusive patch with tegaderm placed in office continue pred 40mg every day - plan decrease after procedure as unclear if beneficial at this pointand patient developed some systemic side effects (weight gain, insomnia) I have confirmed and edited as necessary the relevant ophthalmic history, ROS, and the neuro exam findings as obtained by others. I have seen and examined this patient. I have discussed the case and the management of this patient's care with the Resident/Fellow, if applicable. I also have reviewed and agree with the assessment and plan as stated above and agree with all of its relevant components. Gabo Fuchs MD documented in this encounterSelect Medical [facility]05-24-2022 History of Present illness Narrative* Echo Lui MD - 09/20/2021 11:14 AM EDT Encounter Diagnosis ICD-10-CM 1. 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 S/P PKP (penetrating keratoplasty) Z94.7 3. 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 Two loose and exposed sutures nasally today Removed loose sutures Continue erythromycin kd externally to lid margin QID + PRN Ceftazidime TID for three days and then BID Continue prednisone PO to 40mg daily Shield at night Return precautions reviewed Continue GI prophylaxis (prilosec every day) Follow with Karlos next week I have confirmed and edited as necessary the relevant ophthalmic history, ROS, and the neuro exam findings as obtained by others. I have seen and examined this patient. I have discussed the case and the management of this patient's care with the Resident/Fellow, if applicable. I also have reviewed and agree with the assessment and plan as stated above and agree withall of its relevant components. Echo Lui MD September 20, 2021 11:15 AM documented in this encounterSelect Medical [facility]05-23-2022 History of Present illness Narrative* Nicolasa Donovan APRN.METER/[employer]LAY [employer]FTSMAN - 09/19/2021 10:17 AM EDT PATIENT NAME: Mak Garces DATE: 07/25/2021 PRIMARY CARE PHYSICIAN: Dr. Romulo Clark OTHER PHYSICIANS: Dr. Gabo Fuchs Portions of this encounter note have been copied from my note from 05/30/2021 and has been updated where appropriate, and reflect my current medical decision making from today. 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 INTERIM HISTORY: Mak Garces returns for scheduled follow-up. He remains on Hydrea 500 mg alternating with 1000 mg. Overall, he is tolerating the Hydrea fairly well. He denies any signs of bleedingor abnormal bruising. No signs of blood clotting. No leg pain or shortness of breath. He is questioning if he could possibly decrease the Hydrea to once daily. He denies fevers, chills and night sweats. He denies any palpable lumps or bumps. He is currently being treated for right eye issues. He was on prednisone 60 mg daily x10 days whichwas decreased on 09/15/2021 to 40 mg daily. The patient questions if the Hydrea is presenting his eye from healing. He has been being treated for the right eye issues for some time now. The eye beginsto heal but never completely heals. He is questioning if he should be seen by an autoimmune specialist. He remains on multiple vitamins including but not limited to vitamin B, vitamin C, vitamin D and zinc. MEDICATIONS: predniSONE (DELTASONE) 20 mg tablet Take 3 tablets by mouth once daily. erythromycin (ROMYCIN) 5 mg/gram (0.5 %) ophthalmic ointment Use 1 application in the right eye three times daily. moxifloxacin (VIGAMOX) 0.5 % ophthalmic solution Use 1 Drop in the right eye twice daily. hydroxyurea (HYDREA) 500 mg capsule Take 1 capsule by mouth twice daily. ZINC ORAL Take 140 mg by mouth. levocetirizine (XYZAL) 5 mg tablet Take 5 mg by mouth. ascorbic acid, vitamin C, (VITAMIN C) 500 mg tablet Take 500 mg by mouth once daily. vitamin B complex (B-PLEX ORAL) Take by mouth. olmesartan (BENICAR) 40 mg tablet 0.5 tablets once daily. levothyroxine (SYNTHROID) 150 mcg tablet Take 1 tablet by mouth once daily. fluticasone (FLONASE) 50 mcg/actuation nasal spray tamsulosin (FLOMAX) 0.4 mg Take 0.4 mg by mouth daily at bedtime. carboxymethylcellulose (REFRESH TEARS) 0.5 % drop Use 1 Drop in both eyes as needed. cefTAZidime ophthalmic solution 2.5% (25 mg/mL) (IP-CPD) Use 1 Drop in the right eye twice daily. ciprofloxacin HCl (CILOXAN) 0.3 % ophthalmic solution Use 1 Drop in the right eye four times daily. prednisoLONE acetate (PRED FORTE, ECONOPRED PLUS) 1 % ophthalmic suspension Use 1 Drop in the righteye four times daily. 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 HEENT: Negative for frequent or significant headaches. No changes in hearing, no nose bleeds or other nasal problems. Positive right eye issues. Respiratory: Negative for cough, wheezing or shortness of breath. Cardiovascular: Negative for chest pain, leg swelling or palpitations. GI: Negative for abdominal discomfort, blood in stools or black stools or change in bowel habits. : No history of dysuria, frequency or incontinence. Musculoskeletal: Negative for joint pain or swelling, back pain and muscle pain. Skin: Negative for lesions, rash and itching. Hematology/Lymphology: Negative for prolonged bleeding, bruising easily or swollen nodes. Neuro: No history of headaches, syncope, paralysis, seizures or tremors. PHYSICAL EXAM: Vitals: BP 154/82 Pulse 98 Temp 36.5 C (97.7 F) (Temporal) Resp 16 Ht 188 cm (6' 2.02 ) Wt 123.7 kg (272 lb 9.6 oz) SpO2 97% BMI 34.98 kg/m Exam limited to gross visualization where appropriate due to COVID-19. Gen.: This is an age-appropriate patient in no acute distress. Head: Appears atraumatic with no visible lesions. Eyes: Pupils equally round and reactive to light, extraocular muscles are intact. Neck: Supple. Mouth: Masked. Respiratory: Appears to be respiring comfortably. Neurologic: Nonfocal to gross visualization. Alert and oriented 3. Psychiatric: No evidence of inappropriate anxiety or depression. Skin: Visible areas of skin without rash, lesions, wounds or petechiae. 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 LABORATORY DATA:. Hemoglobin (g/dL) Date Value 09/19/2021 12.7 06/24/2021 12.1 Hematocrit (%) Date Value 09/19/2021 43.4 06/24/2021 40.2 WBC (k/uL) Date Value 09/19/2021 23.94 06/24/2021 15.87 Platelet Count (k/uL) Date Value 09/19/2021 352 06/24/2021 455 RADIOLOGY/OTHER STUDIES: 05/28/2017 MRI orbit IMPRESSION: Normal study. Known abnormality of orbital adnexa not appreciated on this examination. No intracranial masses. 05/11/2017 PET scan IMPRESSION: 1. HEAD/NECK: No FDG avid neoplastic process. No hypermetabolic mass, adenopathy, or fluid collection. 2. CHEST: No FDG avid neoplastic process. No hypermetabolic mass, adenopathy, or fluid collection. 3. ABDOMEN/PELVIS: No FDG avid neoplastic process. No hypermetabolic mass, adenopathy, or fluid collection. 4. EXTREMITIES/SKELETON: No FDG avid osseous process. ASSESSMENT/PLAN: 1. Polycythemia vera (HCC) - ICD9: 238.4, ICD10: D45 (primary diagnosis) Diagnosed September 2014 after presenting with chronic thrombocytosis and leukocytosis (and iron deficiency at the time). Initial evaluation revealed a positive JAK2 mutation. Primary treatment with Hydrea and aspirin started at the time of diagnosis. He has required intermittent phlebotomies to maintain hematocrit < 45, most recently May 2021. His current medications include Hydrea 1000 mg daily alternating with 500 mg daily, plus aspirin 81 mg daily. Currently the patient is clinically stable. The patient will continue as is with his current dose of Hydrea. We will check a CBC in 4 weeks, and arrange for phlebotomy if hematocrit greater than 45%. He will return in 8 weeks for follow-up andlabs. 2. 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 Status post primary treatment with bilateral conjunctival radiation therapy completed June 2017 (24 Galindo in 12 fractions). He has had no evidence of recurrent lymphoma, but has had multiple complications involving his eyes requiring multiple ophthalmologic procedures (7 onright eye, 2 on left eye). He will follow-up with ophthalmology as scheduled. 3. Acquired hypothyroidism - ICD9: 244.9, ICD10: E03.9 Stable on current medications, continue per PCP. Nicolasa Donovan APRN.METER/RELAY CRAFTSMAN documented in this encounterSelect [facility] History of Present illness Narrative* Ace Flores MD - 09/15/2021 11:46 AM EDT Encounter Diagnosis ICD-10-CM 1. 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 I have seen and examined this patient. I have discussed the case and the management of this patient's care with the Resident/Fellow, if applicable. I also have reviewed and agree with the assessment and plan as stated above and agree with all of its relevant components. Ace Flores MD documented in this encounterSelect [facility] History of Present illness Narrative* Gabo Fuchs MD - 09/07/2021 5:17 PM EDT Encounter Diagnosis ICD-10-CM 1. 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 Flores in case follow-up is needed while I am out next week will ask Dr. Lo to see on next week as follow-up if continues to improve on PO pred will need to consider intermediate steroid sparing agent and possible treatment as presumptive OCP recommend add GI prophylaxis (prilosec every day) next visit [facility] I have confirmed and edited as necessary the relevant ophthalmic history, ROS, and the neuro exam findings as obtained by others. I have seen and examined this patient. I have discussed the case and the management of this patient's care with the Resident/Fellow, if applicable. I also have reviewed and agree with the assessment and plan as stated above and agree with all of its relevant components. Gabo Fuchs MD documented in this encounterSelect [facility] History of Present illness Narrative* Gabo Fuchs MD - 09/07/2021 1:19 PM EDT Encounter Diagnosis ICD-10-CM 1. 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 I have seen and examined this patient. I have discussed the case and the management of this patient's care with the Resident/Fellow, if applicable. I also have reviewed and agree with the assessment and plan as stated above and agree with all of its relevant components. Gabo Fuchs MD documented in this encounterSelect [facility] Miscellaneous Notes* Telephone Encounter - Ruben Nieves - 09/05/2021 9:10 AM EDT Spoke with , patient has been scheduled to SDA at 12:00 today. * Telephone Encounter - Gabo Fuchs MD - 09/05/2021 8:42 AM EDT Ask him to come in today and I will see him through SDA. * Telephone Encounter - Ruben Nieves - 09/05/2021 8:31 AM EDT LV: 08/31/21 FV: 09/07/21 (Norma, ) Patient reports pain (5) OD, he has been holding eye all weekend. OS has been blood shot for two days. Gabo Fuchs MD filed at 08/31/2021 6:35 AM Status: Signed Encounter Diagnosis ICD-10-CM 1. 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 S/P PKP (penetrating keratoplasty) Z94.7 follow-up PKP complicated by nonhealing defect nasally surface appears to be slowly recovering nasally, graft margin is stable but two loose sutures remove remaining sutures, graft margin still feels secure continue moxi BID, erythromycin QID + PRN, hold steroids again if not recovering further consider return to OR to resuture margin + multilayered AMG, possible perm vs. temp tarsorrhaphy next visit [facility] I have confirmed and edited as necessary the relevant ophthalmic history, ROS, and the neuro exam findings as obtained by others. I have seen and examined this patient. I have discussed the case and the management of this patient's care with the Resident/Fellow, if applicable. I also have reviewed and agree with the assessment and plan as stated above and agree with all of its relevant components. Gabo Fuchs MD documented in this encounterSelect [facility] History of Present illness Narrative* Gabo Fuchs MD - 08/31/2021 6:32 AM EDT Encounter Diagnosis ICD-10-CM 1. 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 S/P PKP (penetrating keratoplasty) Z94.7 follow-up PKP complicated by nonhealing defect nasally surface appears to be slowly recovering nasally, graft margin is stable but two loose sutures remove remaining sutures, graft margin still feels secure continue moxi BID, erythromycin QID + PRN, hold steroids again if not recovering further consider return to OR to resuture margin + multilayered AMG, possible perm vs. temp tarsorrhaphy next visit [facility] I have confirmed and edited as necessary the relevant ophthalmic history, ROS, and the neuro exam findings as obtained by others. I have seen and examined this patient. I have discussed the case and the management of this patient's care with the Resident/Fellow, if applicable. I also have reviewed and agree with the assessment and plan as stated above and agree with all of its relevant components. Gabo Fuchs MD documented in this encounterSelect [facility] History of Present illness Narrative* Gabo Fuchs MD - 08/26/2021 2:32 PM EDT Encounter Diagnosis ICD-10-CM 1. 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 POW3 s/p PK OD for melt (08/05/21) s/p PKP/ECCE/avit OD persistent epithelial defect nasally essentially unchanged despite occlusive patching with tegadermand hiqhqlqt-urcjfveze-trbdwdlcnpgia kd only daily check cultures of abrasion for bacteria/fungal today remove tarsorrhaphy suture and place new nasal tarsorrhaphy and remove BCL (?mechanical component from BCL) follow-up 5 days discontinue steroids, start moxi BID OD, erythromycin kd to lid/eye QID/PRN discussed if not closing may need to return to OR for wound revision/AMG/repeat tarsorrhaphy OD next week next visit [facility] I have confirmed and edited as necessary the relevant ophthalmic history, ROS, and the neuro exam findings as obtained by others. I have seen and examined this patient. I have discussed the case and the management of this patient's care with the Resident/Fellow, if applicable. I also have reviewed and agree with the assessment and plan as stated above and agree with all of its relevant components. Gabo Fuchs MD documented in this encounterSelect [facility]04[facility] History of Present illness Narrative* Lissa Cassidy RN - 08/22/2021 9:35 AM EDT HCT 41.9. No phlebotomy needed today. Lissa Cassidy RN * Sharonda Tesfaye RN - 08/22/2021 9:33 AM EDTSummary: Phlebotomy No phlebotomy today. Parameters not met per order set. Pt to return to clinic as scheduled. Pt verbalized understanding. Ricki Tesfaye RN,BSN,OCN documented in this encounterSelect [facility]04-[facility] History of Present illness Narrative* Gabo Fuchs MD - 08/18/2021 9:32 AM EDT Encounter Diagnosis ICD-10-CM 1. S/P PKP (penetrating keratoplasty) Z94.7 2. Perforated corneal ulcer of right eye H16.071 3. 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 EPILATION OF TRICHIASIS, FORCEPS POW2 s/p PK OD for melt (08/05/21) s/p PKP/ECCE/avit OD also s/p entropion repair LLL -- good lid contour, 1 trichiatic lash - epilated epithelium appears closed except nasally with abrasion and completely loose suture from donor tissue despite 70% tarsorrhaphy in place ?mechanical - patient denies any eye rubbing but ?possible noctural issue (wears sleep apnea machine) recommend occlusive patching with tegaderm, apply only aroitbsv-hxokrbklr-kdomvnydiqspd kd once daily, eye shield at bedtime follow-up 1 week if still not healed may need to add nasal tarsorrhaphy possibly release temporally and convert to nasal only next visit [facility] I have confirmed and edited as necessary the relevant ophthalmic history, ROS, and the neuro exam findings as obtained by others. I have seen and examined this patient. I have discussed the case and the management of this patient's care with the Resident/Fellow, if applicable. I also have reviewed and agree with the assessment and plan as stated above and agree with all of its relevant components. Gabo Fuchs MD documented in this encounterSelect [facility]04-[facility]-2022 History of Present illness Narrative* Gabo Fuchs MD - 08/06/2021 2:14 PM EDT Encounter Diagnosis ICD-10-CM 1. Perforated corneal ulcer of right eye H16.071 2. 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 I have seen and examined this patient. I have discussed the case and the management of this patient's care with the Resident/Fellow, if applicable. I also have reviewed and agree with the assessment and plan as stated above and agree with all of its relevant components. Gabo Fuchs MD documented in this encounterSelect [facility]04-[facility] History of Present illness Narrative* Echo Lui MD - 08/03/2021 3:47 PM EDT Encounter Diagnosis ICD-10-CM 1. 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 S/P PKP (penetrating keratoplasty) Z94.7 3. 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 BCL fell out since last visit for about 1 month, but has been replaced. No clear infiltrate, no eye pain or significant injection or AC reaction. Will continue BCL as gapewill unlikely to hold with glue. Denies cold sores Valtrex 1g PO tid Start gent qid od Continue BCL for now Continue qgtsnarv-whksyktdo-djtawqriezvnr 1% qid od Remain off aspirin F/u tomorrow Plan for repeat PK Sunday with possible AMG and tars I have confirmed and edited as necessary the relevant ophthalmic history, ROS, and the neuro exam findings as obtained by others. I have seen and examined this patient. I have discussed the case and the management of this patient's care with the Resident/Fellow, if applicable. I also have reviewed and agree with the assessment and plan as stated above and agree withall of its relevant components. Echo Lui MD August 03, 2021 5:00 PM documented in this encounterSelect Medical [facility]03-28-2022 History of Present illness Narrative* Mario Siddiqui MD - 07/25/2021 8:48 AM EDT PATIENT NAME: Mak Garces DATE: 07/25/2021 PRIMARY CARE PHYSICIAN: Romulo Clark, OTHER PHYSICIANS: Dr. Gabo Fuchs Portions of this encounter note have been copied from my note from 05/30/2021 and has been updated where appropriate, and reflect my current medical decision making from today. 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 INTERIM HISTORY: Since the patient's last visit here he underwent a phlebotomy on 06/01/2021, which significantly dropped his hematocrit. Since then he has remained on Hydrea, currently 1000 mg alternating with 500 mg daily. He does have cutaneous toxicity, but otherwise is tolerating the Hydrea well. He recently underwent right eye surgery to remove cataracts, and will require additional surgery toplace new lenses in September or October. He is scheduled to have surgery for his left eyelid eyelashes on 07/28/2021. Other than chronic problems related to his eyes the patient feels well. No headaches or neurological symptoms. No signs of blood clots. MEDICATIONS: ciprofloxacin HCl (CILOXAN) 0.3 % ophthalmic solution Use 1 Drop in the right eye four times daily. neomycin/polymyxin b/dexametha(MAXITROL 3.5 MG/ML-10,000 UNIT/ML-0.1% EYE DROPS,SUSPENSION) Use 1 Drop in the right eye four times daily. dexAMETHasone (DECADRON) 6 mg tablet Take 6 mg by mouth once daily. hydroxyurea (HYDREA) 500 mg capsule Take 1 capsule by mouth twice daily. ZINC ORAL Take 140 mg by mouth. levocetirizine (XYZAL) 5 mg tablet Take 5 mg by mouth. ascorbic acid, vitamin C, (VITAMIN C) 500 mg tablet Take 500 mg by mouth once daily. vitamin B complex (B-PLEX ORAL) Take by mouth. erythromycin (ROMYCIN) 5 mg/gram (0.5 %) ophthalmic ointment Use 1 application in the right eye daily at bedtime. Apply 1/2 inch ribbon per application olmesartan (BENICAR) 40 mg tablet 0.5 tablets once daily. levothyroxine (SYNTHROID) 150 mcg tablet Take 1 tablet by mouth once daily. fluticasone (FLONASE) 50 mcg/actuation nasal spray tamsulosin (FLOMAX) 0.4 mg Take 0.4 mg by mouth daily at bedtime. erythromycin ophthalmic ointment In both eyes and on incisions four times a day X 1 wk then twice aday x 1 wk erythromycin ophthalmic ointment Apply 1/2 inch ribbon per application to incision and in eye four times a day X 1 wk then twice a day x 1 wk carboxymethylcellulose (REFRESH TEARS) 0.5 % drop Use 1 Drop in both eyes as needed. aspirin, enteric coated (ASPIRIN, ENTERIC COATED) 81 mg EC tablet Take 81 mg by mouth once daily. 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 HEENT: Negative for frequent or significant headaches, No changes in hearing or vision, no nose bleeds or other nasal problems RESPIRATORY: Negative for cough, wheezing or shortness of breath. CARDIOVASCULAR: Negative for chest pain, leg swelling or palpitations. GI: Negative for abdominal discomfort, blood in stools or black stools or change in bowel habits : No history of dysuria, frequency or incontinence MUSCULOSKELETAL: Negative for: joint pain or swelling, back pain and muscle pain SKIN: Negative for lesions, rash, and itching. HEMATOLOGY/LYMPHOLOGY: Negative for prolonged bleeding, bruising easily or swollen nodes. NEURO: No history of headaches, syncope, paralysis, seizures or tremors PHYSICAL EXAM: Vitals: BP 136/87 Pulse 83 Temp 36.7 C (98 F) (Temporal) Resp 16 Ht 188.1 cm (6' 2.06 ) Wt 128 kg (282 lb 3.2 oz) SpO2 99% BMI 36.18 kg/m General appearance: well appearing, alert, in no acute distress, well-hydrated, well nourished Skin: skin color, texture, turgor normal, no suspicious rashes or lesions Head: normal Eyes: Anicteric sclera. Pupils are equally round and reactive to light. Extraocular movements are intact. Ears: negative findings: external ears normal to inspection and palpation Oropharynx: negative Neck: Supple, no adenopathy; thyroid symmetric, normal size Lymph Nodes: No Submandibular, cervical, supraclavicular, axillary, or inguinal lymphadenopathy present Breast: NL Symmetry, No Masses/Tenderness/Discharge, No Skin Changes Back: no tenderness to palpation Lungs: clear to auscultation, no wheezing or rhonchi Heart: Negative. RRR without murmur, gallop, or rubs. No ectopy. Abdomen: Normal abdominal exam, Abdomen soft, non-tender. Bowel sounds normal. No masses, organomegaly Rectal: Not done Extremities: Extremities normal. No deformities, edema, or skin discoloration. Good capillary refill. Musculoskeletal: No joint swelling, deformity, or tenderness. Peripheral pulses: Normal PATHOLOGY: 04/16/2017 Biopsy right eye conjunctiva Small B cell neoplasm best classified as extranodal marginal zone lymphoma. LABORATORY DATA: . Hemoglobin (g/dL) Date Value 07/25/2021 12.8 06/24/2021 12.1 Hematocrit (%) Date Value 07/25/2021 43.2 06/24/2021 40.2 WBC (k/uL) Date Value 07/25/2021 11.17 06/24/2021 15.87 Platelet Count (k/uL) Date Value 07/25/2021 459 06/24/2021 455 RADIOLOGY/OTHER STUDIES: 05/28/2017 MRI orbit IMPRESSION: Normal study. Known abnormality of orbital adnexa not appreciated on this examination. No intracranial masses. 05/11/2017 PET scan IMPRESSION: 1. HEAD/NECK: No FDG avid neoplastic process. No hypermetabolic mass, adenopathy, or fluid collection. 2. CHEST: No FDG avid neoplastic process. No hypermetabolic mass, adenopathy, or fluid collection. 3. ABDOMEN/PELVIS: No FDG avid neoplastic process. No hypermetabolic mass, adenopathy, or fluid collection. 4. EXTREMITIES/SKELETON: No FDG avid osseous process. ASSESSMENT/PLAN: 1. Polycythemia vera (HCC) - ICD9: 238.4, ICD10: D45 (primary diagnosis) Diagnosed September 2014 after presenting with chronic thrombocytosis and leukocytosis (and iron deficiency at the time). Initial evaluation revealed a positive JAK2 mutation. Primary treatment with Hydrea and aspirin started at the time of diagnosis. He has required intermittent phlebotomies to maintain hematocrit < 45, most recently May 2021. His current medications include Hydrea 1000 mg daily alternating with 500 mg daily, plus aspirin 81 mg daily. Currently the patient is clinically stable. The patient will continue as is with his current dose of Hydrea. We will check a CBC in 4 weeks, and arrange for phlebotomy if hematocrit greater than 45%. Return in 8 weeks for follow-up and labs. 2. 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 Status post primary treatment with bilateral conjunctival radiation therapy completed June 2017 (24 Galindo in 12 fractions). He has had no evidence of recurrent lymphoma, but has had multiple complications involving his eyes requiring multiple ophthalmologic procedures (7 onright eye, 2 on left eye). He will follow-up with ophthalmology as scheduled. 3. Acquired hypothyroidism - ICD9: 244.9, ICD10: E03.9 Stable on current medications, continue per PCP. Mario Siddiqui MD documented in this encounterSelect Medical [facility] NotePatient Education Materials Follows:[facility]09-08-2021 NotePatient Education Materials Follows:[facility]08-13-2021 NotePatient Education Materials Follows:[facility]05-15-2018 History of Past illness Narrative* ProblemNoted DateResolved DatePerforated corneal ulcer of right eye Overview: Added automatically from request for surgery [id number] documented as of this encounter (statuses as of 07/25/2021) [facility] History of Past illness Narrative* ProblemNoted Date Resolved DatePerforated corneal ulcer of right eye Overview: Added automatically from request for surgery [id number] documented as of this encounter (statuses as of 08/03/2021) [facility] History of Past illness Narrative* ProblemNoted Date Resolved DatePerforated corneal ulcer of right eye Overview: Added automatically from request for surgery [id number] documented as of this encounter (statuses as of 08/03/2021) [address]15-2018 History of Past illness Narrative* ProblemNoted Date Resolved DatePerforated corneal ulcer of right eye Overview: Added automatically from request for surgery [id number] documented as of this encounter (statuses as of 08/06/2021) [facility]2018 History of Past illness Narrative* ProblemNoted Date Resolved DatePerforated corneal ulcer of right eye Overview: Added automatically from request for surgery [id number] documented as of this encounter (statuses as of 08/19/2021) [address]15-2018 History of Past illness Narrative* ProblemNoted Date Resolved DatePerforated corneal ulcer of right eye Overview: Added automatically from request for surgery [id number] documented as of this encounter (statuses as of 08/22/2021) [address]15-2018 History of Past illness Narrative* ProblemNoted Date Resolved DatePerforated corneal ulcer of right eye Overview: Added automatically from request for surgery [id number] documented as of this encounter (statuses as of 08/26/2021) [facility]2018 History of Past illness Narrative* ProblemNoted Date Resolved DatePerforated corneal ulcer of right eye Overview: Added automatically from request for surgery [id number] documented as of this encounter (statuses as of 08/31/2021) [facility]2018 History of Past illness Narrative* ProblemNoted Date Resolved DatePerforated corneal ulcer of right eye Overview: Added automatically from request for surgery [id number] documented as of this encounter (statuses as of 09/05/2021) [facility]2018 History of Past illness Narrative* ProblemNoted Date Resolved DatePerforated corneal ulcer of right eye Overview: Added automatically from request for surgery [id number] documented as of this encounter (statuses as of 09/07/2021) [facility]2018 History of Past illness Narrative* ProblemNoted Date Resolved DatePerforated corneal ulcer of right eye Overview: Added automatically from request for surgery [id number] documented as of this encounter (statuses as of 09/15/2021) [facility]2018 History of Past illness Narrative* ProblemNoted Date Resolved DatePerforated corneal ulcer of right eye Overview: Added automatically from request for surgery [id number] documented as of this encounter (statuses as of 09/19/2021) [facility]2018 History of Past illness Narrative* ProblemNoted Date Resolved DatePerforated corneal ulcer of right eye Overview: Added automatically from request for surgery [id number] documented as of this encounter (statuses as of 09/20/2021) [facility]2018 History of Past illness Narrative* ProblemNoted Date Resolved DatePerforated corneal ulcer of right eye Overview: Added automatically from request for surgery [id number] documented as of this encounter (statuses as of 09/30/2021) [facility]2018 History of Past illness Narrative* ProblemNoted Date Resolved DatePerforated corneal ulcer of right eye Overview: Added automatically from request for surgery [id number] documented as of this encounter (statuses as of 10/06/2021) [address]15-2018 History of Past illness Narrative* ProblemNoted Date Resolved DatePerforated corneal ulcer of right eye Overview: Added automatically from request for surgery [id number] documented as of this encounter (statuses as of 10/10/2021) [address]15-2018 History of Past illness Narrative* ProblemNoted Date Resolved DatePerforated corneal ulcer of right eye Overview: Added automatically from request for surgery [id number] documented as of this encounter (statuses as of 10/17/2021) [address]15-2018 History of Past illness Narrative* ProblemNoted Date Resolved DatePerforated corneal ulcer of right eye Overview: Added automatically from request for surgery [id number] documented as of this encounter (statuses as of 10/20/2021) [address]15-2018 History of Past illness Narrative* ProblemNoted Date Resolved DatePerforated corneal ulcer of right eye Overview: Added automatically from request for surgery [id number] documented as of this encounter (statuses as of 10/24/2021) [address]15-2018 History of Past illness Narrative* ProblemNoted Date Resolved DatePerforated corneal ulcer of right eye Overview: Added automatically from request for surgery [id number] documented as of this encounter (statuses as of 10/26/2021) [facility]2018 History of Past illness Narrative* ProblemNoted Date Resolved DatePerforated corneal ulcer of right eye Overview: Added automatically from request for surgery [id number] documented as of this encounter (statuses as of 11/14/2021) [facility]2018 History of Past illness Narrative* ProblemNoted Date Resolved DatePerforated corneal ulcer of right eye Overview: Added automatically from request for surgery [id number] documented as of this encounter (statuses as of 11/15/2021) [address]15-2018 History of Past illness Narrative* ProblemNoted Date Resolved DatePerforated corneal ulcer of right eye Overview: Added automatically from request for surgery [id number] documented as of this encounter (statuses as of 11/17/2021) [facility]2018 History of Past illness Narrative* ProblemNoted Date Resolved DatePerforated corneal ulcer of right eye Overview: Added automatically from request for surgery [id number] documented as of this encounter (statuses as of 11/24/2021) [facility]2018 History of Past illness Narrative* ProblemNoted Date Resolved DatePerforated corneal ulcer of right eye Overview: Added automatically from request for surgery [id number] documented as of this encounter (statuses as of 12/26/2021) [place] [address]15-2018 History of Past illness Narrative* ProblemNoted Date Resolved DatePerforated corneal ulcer of right eye Overview: Added automatically from request for surgery [id number] documented as of this encounter (statuses as of 12/26/2021) [facility]2018 History of Past illness Narrative* ProblemNoted Date Resolved DatePerforated corneal ulcer of right eye Overview: Added automatically from request for surgery [id number] documented as of this encounter (statuses as of 01/03/2022) [facility]2018 History of Past illness Narrative* ProblemNoted Date Resolved DatePerforated corneal ulcer of right eye Overview: Added automatically from request for surgery [id number] documented as of this encounter (statuses as of 01/05/2022) [address]15-2018 History of Past illness Narrative* ProblemNoted Date Resolved DatePerforated corneal ulcer of right eye Overview: Added automatically from request for surgery [id number] documented as of this encounter (statuses as of 01/06/2022) [facility]2018 History of Past illness Narrative* ProblemNoted Date Resolved DatePerforated corneal ulcer of right eye Overview: Added automatically from request for surgery [id number] documented as of this encounter (statuses as of 02/01/2022) [facility]2018 History of Past illness Narrative* ProblemNoted Date Resolved DatePerforated corneal ulcer of right eye Overview: Added automatically from request for surgery [id number] documented as of this encounter (statuses as of 02/08/2022) [facility]2018 History of Past illness Narrative* ProblemNoted Date Resolved DatePerforated corneal ulcer of right eye Overview: Added automatically from request for surgery [id number] documented as of this encounter (statuses as of 02/08/2022) [address]15-2018 History of Past illness Narrative* ProblemNoted Date Resolved DatePerforated corneal ulcer of right eye Overview: Added automatically from request for surgery [id number] documented as of this encounter (statuses as of 02/27/2022) [facility]2018 History of Past illness Narrative* ProblemNoted Date Resolved DatePerforated corneal ulcer of right eye Overview: Added automatically from request for surgery [id number] documented as of this encounter (statuses as of 03/01/2022) [facility]2018 History of Past illness Narrative* ProblemNoted Date Resolved DatePerforated corneal ulcer of right eye Overview: Added automatically from request for surgery [id number] documented as of this encounter (statuses as of 03/27/2022) [address]15-2018 History of Past illness Narrative* ProblemNoted Date Resolved DatePerforated corneal ulcer of right eye Overview: Added automatically from request for surgery [id number] documented as of this encounter (statuses as of 04/04/2022) [facility]2018 History of Past illness Narrative* ProblemNoted Date Resolved DatePerforated corneal ulcer of right eye Overview: Added automatically from request for surgery [id number] documented as of this encounter (statuses as of 04/16/2022) [address]15-2018 History of Past illness Narrative* ProblemNoted Date Resolved DatePerforated corneal ulcer of right eye Overview: Added automatically from request for surgery [id number] documented as of this encounter (statuses as of 05/04/2022) [address]15-2018 History of Past illness Narrative* ProblemNoted Date Resolved DatePerforated corneal ulcer of right eye Overview: Added automatically from request for surgery [id number] documented as of this encounter (statuses as of 05/16/2022) [facility]2018 History of Past illness Narrative* ProblemNoted Date Resolved DatePerforated corneal ulcer of right eye Overview: Added automatically from request for surgery [id number] documented as of this encounter (statuses as of 07/19/2022) [facility]2018 History of Past illness Narrative* ProblemNoted Date Resolved DatePerforated corneal ulcer of right eye Overview: Added automatically from request for surgery [id number] documented as of this encounter (statuses as of 07/20/2022) [facility]2018 History of Past illness Narrative* ProblemNoted Date Resolved DatePerforated corneal ulcer of right eye Overview: Added automatically from request for surgery [id number] documented as of this encounter (statuses as of 07/28/2022) [facility]2018 History of Past illness Narrative* ProblemNoted Date Resolved DatePerforated corneal ulcer of right eye Overview: Added automatically from request for surgery [id number] documented as of this encounter (statuses as of 08/03/2022) [facility]2018 History of Past illness Narrative* ProblemNoted Date Resolved DatePerforated corneal ulcer of right eye Overview: Added automatically from request for surgery [id number] documented as of this encounter (statuses as of 08/09/2022) [facility]2018 History of Past illness Narrative* ProblemNoted Date Resolved DatePerforated corneal ulcer of right eye Overview: Added automatically from request for surgery [id number] documented as of this encounter (statuses as of 08/17/2022) [address]15-2018 History of Past illness Narrative* ProblemNoted Date Resolved DatePerforated corneal ulcer of right eye Overview: Added automatically from request for surgery [id number] documented as of this encounter (statuses as of 08/18/2022) [facility]2018 History of Past illness Narrative* ProblemNoted Date Resolved DatePerforated corneal ulcer of right eye Overview: Added automatically from request for surgery [id number] documented as of this encounter (statuses as of 08/19/2022) [facility]2018 History of Past illness Narrative* ProblemNoted Date Resolved DatePerforated corneal ulcer of right eye Overview: Added automatically from request for surgery [id number] documented as of this encounter (statuses as of 08/21/2022) [facility]2018 History of Past illness Narrative* ProblemNoted Date Resolved DatePerforated corneal ulcer of right eye Overview: Added automatically from request for surgery [id number] documented as of this encounter (statuses as of 08/21/2022) [facility]2018 History of Past illness Narrative* ProblemNoted Date Resolved DatePerforated corneal ulcer of right eye Overview: Added automatically from request for surgery [id number] documented as of this encounter (statuses as of 09/27/2022) [facility]2018 History of Past illness Narrative* ProblemNoted Date Diagnosed DateResolved DatePerforated corneal ulcer of right eye09/11/2017 09/14/2017 Overview: Added automatically from request for surgery [id number] documented as of this encounter (statuses as of 11/07/2022) [facility]2018 History of Past illness Narrative* ProblemNoted Date Diagnosed DateResolved DatePerforated corneal ulcer of right eye09/11/2017 09/14/2017 Overview: Added automatically from request for surgery [id number] documented as of this encounter (statuses as of 11/30/2022) [facility]2018 History of Past illness Narrative* ProblemNoted Date Diagnosed DateResolved DatePerforated corneal ulcer of right eye09/11/2017 09/14/2017 Overview: Added automatically from request for surgery [id number] documented as of this encounter (statuses as of 12/12/2022) [facility]2018 History of Past illness Narrative* ProblemNoted Date Diagnosed DateResolved DatePerforated corneal ulcer of right eye09/11/2017 09/14/2017 Overview: Added automatically from request for surgery [id number] documented as of this encounter (statuses as of 12/27/2022) [facility]2018 History of Past illness Narrative* ProblemNoted Date Diagnosed DateResolved DatePerforated corneal ulcer of right eye09/11/2017 09/14/2017 Overview: Added automatically from request for surgery [id number] documented as of this encounter (statuses as of 03/13/2023) [facility]2018 History of Past illness Narrative* ProblemNoted Date Diagnosed DateResolved DatePerforated corneal ulcer of right eye09/11/2017 09/14/2017 Overview: Added automatically from request for surgery [id number] documented as of this encounter (statuses as of 03/13/2023) [facility]2018 History of Past illness Narrative* ProblemNoted Date Diagnosed DateResolved DatePerforated corneal ulcer of right eye09/11/2017 09/14/2017 Overview: Added automatically from request for surgery [id number] documented as of this encounter (statuses as of 03/14/2023) [address]15-2018 History of Past illness Narrative* ProblemNoted Date Diagnosed DateResolved DatePerforated corneal ulcer of right eye09/11/2017 09/14/2017 Overview: Added automatically from request for surgery [id number] documented as of this encounter (statuses as of 03/15/2023) [facility]2018 History of Past illness Narrative* ProblemNoted Date Diagnosed DateResolved DatePerforated corneal ulcer of right eye09/11/2017 09/14/2017 Overview: Added automatically from request for surgery [id number] documented as of this encounter (statuses as of 03/22/2023) [facility]2018 History of Past illness Narrative* ProblemNoted Date Diagnosed DateResolved DatePerforated corneal ulcer of right eye09/11/2017 09/14/2017 Overview: Added automatically from request for surgery [id number] documented as of this encounter (statuses as of 03/23/2023) [facility]2018 History of Past illness Narrative* ProblemNoted Date Diagnosed DateResolved DatePerforated corneal ulcer of right eye09/11/2017 09/14/2017 Overview: Added automatically from request for surgery [id number] documented as of this encounter (statuses as of 03/31/2023) [facility]2018 History of Past illness Narrative* ProblemNoted Date Diagnosed DateResolved DatePerforated corneal ulcer of right eye09/11/2017 09/14/2017 Overview: Added automatically from request for surgery [id number] documented as of this encounter (statuses as of 04/19/2023) [facility]2018 History of Past illness Narrative* ProblemNoted Date Diagnosed DateResolved DatePerforated corneal ulcer of right eye09/11/2017 09/14/2017 Overview: Added automatically from request for surgery [id number] documented as of this encounter (statuses as of 06/05/2023) [facility]2018 History of Past illness Narrative* ProblemNoted Date Diagnosed DateResolved DatePerforated corneal ulcer of right eye09/11/2017 09/14/2017 Overview: Added automatically from request for surgery [id number] documented as of this encounter (statuses as of 06/06/2023) [facility]2018 History of Past illness Narrative* ProblemNoted Date Diagnosed DateResolved DatePerforated corneal ulcer of right eye09/11/2017 09/14/2017 Overview: Added automatically from request for surgery [id number] documented as of this encounter (statuses as of 06/14/2023) [facility]2018 History of Past illness Narrative* ProblemNoted Date Diagnosed DateResolved DatePerforated corneal ulcer of right eye09/11/2017 09/14/2017 Overview: Added automatically from request for surgery [id number] documented as of this encounter (statuses as of 06/15/2023) [address]15-2018 History of Past illness Narrative* ProblemNoted Date Diagnosed DateResolved DatePerforated corneal ulcer of right eye09/11/2017 09/14/2017 Overview: Added automatically from request for surgery [id number] documented as of this encounter (statuses as of 07/06/2023) [facility]2018 History of Past illness Narrative* ProblemNoted Date Diagnosed DateResolved DatePerforated corneal ulcer of right eye09/11/2017 09/14/2017 Overview: Added automatically from request for surgery [id number] documented as of this encounter (statuses as of 07/17/2023) [address]15-2018 History of Past illness Narrative* ProblemNoted Date Diagnosed DateResolved DatePerforated corneal ulcer of right eye09/11/2017 09/14/2017 Overview: Added automatically from request for surgery [id number] documented as of this encounter (statuses as of 07/19/2023) [address]15-2018 History of Past illness Narrative* ProblemNoted Date Diagnosed DateResolved DatePerforated corneal ulcer of right eye09/11/2017 09/14/2017 Overview: Added automatically from request for surgery [id number] documented as of this encounter (statuses as of 07/20/2023) [place] [address]15[address]2018 History of Past illness Narrative* ProblemNoted Date Diagnosed DateResolved DatePerforated corneal ulcer of right eye09/11/2017 09/14/2017 Overview: Added automatically from request for surgery [id number] documented as of this encounter (statuses as of 07/21/2023) [facility]2018 History of Past illness Narrative* ProblemNoted Date Diagnosed DateResolved DatePerforated corneal ulcer of right eye09/11/2017 09/14/2017 Overview: Added automatically from request for surgery [id number] documented as of this encounter (statuses as of 07/24/2023) [facility]2018 History of Past illness Narrative* ProblemNoted Date Diagnosed DateResolved DatePerforated corneal ulcer of right eye09/11/2017 09/14/2017 Overview: Added automatically from request for surgery [id number] documented as of this encounter (statuses as of 08/17/2023) [facility] Diagnosis Polycythemia vera (HCC)- Primary documented in this encounter [facility]Evalunemours foundation noteNo assessment information availableSal[facility] Work Phone: Evaluation note* Diagnosis Perforated corneal ulcer of right eye- Primary Perforated corneal ulcer Exposure keratoconjunctivitis of right eye Exposure 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 Perforated corneal ulcer Exposure keratoconjunctivitis of right eye Exposure keratoconjunctivitis documented [facility] this [facility] Diagnosis Cornea scar- Primary Corneal opacity, unspecified 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 Neurotrophic 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 Perforated corneal ulcer Exposure keratoconjunctivitis of right eye Exposure keratoconjunctivitis documented [facility] this [facility] Diagnosis Perforated corneal ulcer of right eye- Primary Perforated corneal ulcer Exposure keratoconjunctivitis of right eye Exposure keratoconjunctivitis Neurotrophic keratoconjunctivitis of both eyes Neurotrophic keratoconjunctivitis Cornea scar Corneal opacity, unspecified 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 [facility] this [facility]* Diagnosis S/P PKP (penetrating keratoplasty)- Primary Cornea replaced by 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 Perforated corneal ulcer Exposure keratoconjunctivitis of right eye Exposure keratoconjunctivitis Neurotrophic keratoconjunctivitis of both eyes Neurotrophic keratoconjunctivitis Cornea scar Corneal opacity, unspecified Trichiasis without entropion left lower eyelid documented [facility] this [facility]* Diagnosis Polycythemia vera (HCC)- Primary [facility] this [facility]* Diagnosis Central corneal ulcer of right eye- Primary [place] corneal ulcer Exposure keratoconjunctivitis of right eye Exposure keratoconjunctivitis Neurotrophic keratoconjunctivitis of both eyes Neurotrophic keratoconjunctivitis [facility] Diagnosis Central corneal ulcer of right eye- Primary Central corneal ulcer Exposure keratoconjunctivitis of right eye Exposure keratoconjunctivitis Neurotrophic keratoconjunctivitis of both eyes Neurotrophic 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 [facility] Diagnosis Central corneal ulcer of right eye- Primary Central corneal ulcer Exposure keratoconjunctivitis of right eye Exposure 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 Trichiasis without entropion left lower eyelid documented [facility]* Diagnosis Central corneal ulcer of right eye- Primary Central corneal ulcer Exposure keratoconjunctivitis of right eye Exposure 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 Neurotrophic keratoconjunctivitis documented [facility] Diagnosis Neurotrophic keratoconjunctivitis of both eyes- Primary Neurotrophic keratoconjunctivitis Exposure keratoconjunctivitis of right eye Exposure keratoconjunctivitis Central corneal ulcer of right eye Central corneal ulcer [facility]* Diagnosis Polycythemia vera (HCC)- 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, face, and neck Acquired hypothyroidism Unspecified [facility] Neurotrophic keratoconjunctivitis of both eyes- Primary Neurotrophic 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 Central corneal ulcer [facility] Diagnosis Central corneal ulcer of right eye- Primary Central corneal ulcer 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 Neurotrophic keratoconjunctivitis Exposure keratoconjunctivitis of right eye Exposure keratoconjunctivitis documented in this [facility] Diagnosis Central corneal ulcer of right eye- Primary Central corneal ulcer 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 Neurotrophic keratoconjunctivitis Exposure keratoconjunctivitis of right eye Exposure keratoconjunctivitis [facility] Polycythemia vera (HCC)- Primary [facility]* Diagnosis S/P PKP (penetrating keratoplasty)- Primary 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, right Exposure keratoconjunctivitis of right eye Exposure keratoconjunctivitis [facility] Diagnosis Polycythemia vera (HCC)- 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, face, and neck Acquired hypothyroidism Unspecified hypothyroidism [facility] Diagnosis S/P PKP (penetrating keratoplasty)- Primary Cornea replaced by transplant Exposure keratoconjunctivitis of right eye Exposure keratoconjunctivitis Neurotrophic keratoconjunctivitis of right eye Neurotrophic keratoconjunctivitis documented in this [facility]* Diagnosis Polycythemia vera (HCC)- Primary documented in this [facility]* Diagnosis S/P PKP (penetrating keratoplasty)- Primary Cornea replaced by transplant Exposure keratoconjunctivitis of right eye Exposure keratoconjunctivitis Neurotrophic keratoconjunctivitis of right eye Neurotrophic keratoconjunctivitis Trichiasis of left lower eyelid without entropion Trichiasis of eyelid without entropion documented in this [facility]* Diagnosis Polycythemia vera (HCC)- 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, face, and neck [facility] Diagnosis Central corneal ulcer of right eye- Primary Central corneal ulcer 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 Exposure keratoconjunctivitis of right eye Exposure keratoconjunctivitis Neurotrophic keratoconjunctivitis of right eye Neurotrophic keratoconjunctivitis Trichiasis of left lower eyelid without entropion Trichiasis of eyelid without entropion [facility] Central corneal ulcer of right eye- Primary Central corneal ulcer 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 Trichiasis of left lower eyelid without entropion Trichiasis of eyelid without entropion [facility] Diagnosis Polycythemia vera (HCC)- Primary [facility] Diagnosis Trichiasis of right upper eyelid- Primary 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 Neurotrophic keratoconjunctivitis of right eye Neurotrophic keratoconjunctivitis 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 Central corneal ulcer Conjunctival abrasion, right, initial encounter [facility] Diagnosis Polycythemia vera (HCC)- 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, face, and neck Acquired hypothyroidism Unspecified hypothyroidism [facility] Diagnosis Trichiasis of right upper eyelid- Primary 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 Neurotrophic keratoconjunctivitis of right eye Neurotrophic keratoconjunctivitis 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 Central corneal ulcer [facility] Diagnosis Perforated corneal ulcer of right eye- Primary Perforated corneal ulcer Neurotrophic keratoconjunctivitis of right eye Neurotrophic keratoconjunctivitis 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, right eye Aphakia [facility] Diagnosis Perforated corneal ulcer of right eye- Primary Perforated corneal ulcer Trichiasis of right upper eyelid Neurotrophic keratoconjunctivitis of right eye Neurotrophic keratoconjunctivitis 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, right eye Aphakia documented [facility] Diagnosis Perforated corneal ulcer of right eye- Primary Perforated corneal ulcer Trichiasis of right upper eyelid Neurotrophic keratoconjunctivitis of right eye Neurotrophic keratoconjunctivitis 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 documented in this encounter [facility]* Diagnosis Polycythemia vera (HCC)- Primary documented in this encounter [facility]* Diagnosis Perforated corneal ulcer of right eye- Primary Perforated corneal ulcer documented in this encounter [facility]* Diagnosis Perforated corneal ulcer of right eye- Primary Perforated corneal ulcer Corneal scar, right eye Corneal opacity, unspecified documented in this encounter [facility]* Diagnosis Corneal scar, right eye- Primary Corneal opacity, unspecified Trichiasis without entropion of right upper eyelid Trichiasis of eyelid without entropion Trichiasis of left lower eyelid without entropion Trichiasis of eyelid without entropion 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 Neurotrophic keratoconjunctivitis Aphakia, right eye Aphakia 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 Exposure keratoconjunctivitis of right eye Exposure keratoconjunctivitis [facility] Diagnosis Corneal scar, right eye- Primary Corneal opacity, unspecified Trichiasis without entropion of right upper eyelid Trichiasis of eyelid without entropion Trichiasis of left lower eyelid without entropion Trichiasis of eyelid without entropion 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 Neurotrophic keratoconjunctivitis Aphakia, right eye Aphakia 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 Exposure keratoconjunctivitis of right eye Exposure keratoconjunctivitis documented in this encounter [facility]* Diagnosis Polycythemia vera (HCC)- Primary documented in this [facility]* Diagnosis Polycythemia vera (HCC)- 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, face, and neck Acquired hypothyroidism Unspecified hypothyroidism [facility] Diagnosis Central corneal ulcer of right eye- Primary Central corneal ulcer Corneal scar, right eye Corneal opacity, unspecified Trichiasis without entropion of right upper eyelid Trichiasis of eyelid without entropion Trichiasis of left lower eyelid without entropion Trichiasis of eyelid without entropion 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 Aphakia, right eye Aphakia Exposure keratoconjunctivitis of right eye Exposure keratoconjunctivitis Neurotrophic keratoconjunctivitis of right eye Neurotrophic keratoconjunctivitis documented in this [facility] Diagnosis Trichiasis without entropion of right upper eyelid- Primary Trichiasis of eyelid without entropion Central corneal ulcer of right eye Central corneal ulcer Corneal scar, right eye Corneal opacity, unspecified 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 Aphakia, right eye Aphakia documented in this encounter [facility]* Diagnosis Polycythemia vera (HCC)- Primary documented in this [facility]* Diagnosis Central corneal ulcer of right eye- Primary Central corneal ulcer Trichiasis without entropion of right upper eyelid Trichiasis of eyelid without entropion Trichiasis of left lower eyelid without entropion Trichiasis of eyelid without entropion Neurotrophic keratoconjunctivitis of right eye Neurotrophic keratoconjunctivitis Exposure keratoconjunctivitis of right eye Exposure 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 Aphakia, right eye Aphakia Trichiasis of right lower eyelid documented in this [facility]* Diagnosis Polycythemia vera (HCC)- Primary documented in this [facility]* Diagnosis Polycythemia vera (HCC)- 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, face, and neck Acquired hypothyroidism Unspecified hypothyroidism documented in this [facility]* Diagnosis Trichiasis without entropion of right upper eyelid- Primary Trichiasis of eyelid without entropion Trichiasis of left lower eyelid without entropion Trichiasis of eyelid without entropion Neurotrophic keratoconjunctivitis of right eye Neurotrophic keratoconjunctivitis Exposure keratoconjunctivitis of right eye Exposure 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 documented in this [facility]* Diagnosis Polycythemia vera (HCC)- Primary documented in this [facility]* Diagnosis Central corneal ulcer of right eye- Primary Central corneal ulcer Trichiasis without entropion of right upper eyelid Trichiasis of eyelid without entropion Trichiasis of right lower eyelid Neurotrophic keratoconjunctivitis of right eye Neurotrophic keratoconjunctivitis Exposure keratoconjunctivitis of right eye Exposure keratoconjunctivitis documented in this encounter [facility]* Diagnosis Central corneal ulcer of right eye- Primary Central corneal ulcer Trichiasis without entropion of right upper eyelid Trichiasis of eyelid without entropion Trichiasis of right lower eyelid Neurotrophic keratoconjunctivitis of right eye Neurotrophic keratoconjunctivitis Exposure keratoconjunctivitis of right eye Exposure 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 [facility] Diagnosis Onset Date Resolution Status MATT treated with [facility] Work Phone: Evaluation note* Diagnosis Central corneal ulcer of right eye- Primary Central corneal ulcer Exposure keratoconjunctivitis of left eye Exposure keratoconjunctivitis Aphakia, right eye Aphakia documented in this [facility]* Diagnosis Polycythemia vera (HCC)- 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, face, and neck Acquired hypothyroidism Unspecified hypothyroidism documented in this [facility]* Diagnosis 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 Exposure keratoconjunctivitis of right eye Exposure keratoconjunctivitis Trichiasis of left lower eyelid without entropion Trichiasis of eyelid without entropion 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, right eye Aphakia documented in this [facility]* Diagnosis Polycythemia vera (HCC)- Primary documented in this [facility]* Diagnosis Polycythemia vera (HCC)- Primary documented in this encounter [facility]* Diagnosis Polycythemia vera (HCC) [facility] Diagnosis 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 Exposure keratoconjunctivitis of right eye Exposure 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 Trichiasis of left lower eyelid without entropion Trichiasis of eyelid without entropion Trichiasis of right lower eyelid [facility] Diagnosis Polycythemia vera (HCC)- 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, face, and neck [facility] Diagnosis 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, right eye Aphakia Trichiasis of right upper eyelid [facility] Diagnosis Polycythemia vera (HCC)- 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, face, and neck [facility] Diagnosis Seborrheic keratosis Actinic keratosis Melanocytic nevus of trunk Benign neoplasm of skin of trunk, except scrotum Lentigines Capillary angioma Nevus, non-neoplastic Neoplasm of unspecified behavior of bone, soft tissue, and skin documented in this encounter [facility]* Diagnosis 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 Trichiasis of right upper eyelid documented in this encounter [facility]* Diagnosis Perforated corneal ulcer of right eye- Primary Perforated corneal ulcer Perforated corneal ulcer of right eye Perforated corneal ulcer [facility] Diagnosis 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 Trichiasis of right upper eyelid 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 Other vitreous opacities, right eye Aphakia, right eye Aphakia Hemorrhagic choroidal detachment of left eye Hemorrhagic choroidal detachment documented [facility] this [facility]* Diagnosis Basal cell carcinoma (BCC) of skin of nose documented in this encounter [facility] Work Phone: Evaluation note* Diagnosis Malignant melanoma of neck (Multi)- Primary documented in this encounter [facility] Work Phone: Evaluation note* Diagnosis 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 documented in this [facility]* Diagnosis 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 Neurotrophic keratoconjunctivitis of right eye Neurotrophic keratoconjunctivitis documented in this encounter [facility]* Diagnosis Pain in right eye- Primary Pain in or around eye Neurotrophic keratoconjunctivitis of right eye Neurotrophic keratoconjunctivitis documented in this [facility] Diagnosis Pain in right eye Pain in or around eye Neurotrophic keratoconjunctivitis of right eye Neurotrophic keratoconjunctivitis documented in this encounter [facility]* Diagnosis Basal cell carcinoma of skin of left upper limb, including shoulder- Primary Actinic keratosis [facility] Diagnosis Perforated corneal ulcer of right eye- Primary Perforated corneal ulcer Central corneal ulcer of right eye Central corneal ulcer Neurotrophic keratoconjunctivitis of right eye Neurotrophic 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 Exposure keratoconjunctivitis of right eye Exposure keratoconjunctivitis Hemorrhagic choroidal detachment of left eye Hemorrhagic choroidal detachment Aphakia, right eye Aphakia 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 Neurotrophic keratoconjunctivitis documented in this [facility] Diagnosis Primary hypertension (CMS/HCC)- Primary Unspecified essential hypertension Other specified types of non-hodgkin lymphoma, unspecified site (CMS/HCC) Obesity (BMI 30-39.9) Extranodal lymphoma (CMS/HCC) Polycythemia vera (CMS/HCC) Malignant melanoma of neck (CMS/HCC) Obstructive sleep apnea Obstructive sleep apnea (adult) (pediatric) Hyponatremia Hyposmolality and/or hyponatremia Acquired hypothyroidism (CMS/HCC) Unspecified hypothyroidism Syncope, unspecified syncope type Chest pain, unspecified type [facility] Perforated corneal ulcer of right eye- Primary Perforated corneal ulcer Neurotrophic keratoconjunctivitis of right eye Neurotrophic keratoconjunctivitis documented in this [facility]* Diagnosis 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 Neurotrophic keratoconjunctivitis Neurotrophic keratoconjunctivitis of right eye Neurotrophic keratoconjunctivitis documented in this [facility]* Diagnosis Perforated corneal ulcer of right eye- Primary Perforated corneal ulcer Hemorrhagic choroidal detachment of left eye Hemorrhagic choroidal detachment documented [facility] this [facility]* Diagnosis Anophthalmos of right eye- Primary Clinical anophthalmos, unspecified Post-operative state Other postprocedural status documented [facility] this [facility] Diagnosis Malignant melanoma of neck (Multi) documented in this encounter [facility] Work Phone: Evaluation note* Diagnosis Malignant melanoma of neck (Multi)- Primary Malignant melanoma of neck (Multi) MATT (obstructive sleep apnea) Obstructive sleep apnea (adult) (pediatric) Hypothyroidism Unspecified hypothyroidism documented in this encounter [facility] Work Phone: Evaluation note* Diagnosis Malignant melanoma of neck (Multi)- Primary Malignant melanoma of neck (Multi)- Primary Malignant melanoma of neck (Multi) documented in this encounter [facility] Work Phone: Evaluation note* Diagnosis Melanocytic nevus of trunk- Primary Benign neoplasm of skin of trunk, except scrotum Actinic keratosis Neoplasm of unspecified behavior of bone, soft tissue, and skin Capillary angioma Nevus, non-neoplastic Lentigines Seborrheic keratosis History of basal cell carcinoma Personal history of other malignant neoplasm of skin History of malignant melanoma of skin Personal history of malignant melanoma of skin [facility] Diagnosis Malignant melanoma of neck (Multi)- Primary Malignant melanoma of neck (Multi) documented in this encounter [facility] Work Phone: Evaluation note* Diagnosis Onset Date Resolution Status Admit Date MATT treated with [facility] acuteApril 2024 9:57am [facility] [facility] Work Phone: Evaluation note* Diagnosis Post-operative state- Primary Other postprocedural status Trichiasis of left lower eyelid without entropion Trichiasis of eyelid without entropion Polycythemia vera (HCC)- Primary [facility]* Diagnosis Polycythemia vera (HCC)- 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, face, and neck [facility] Diagnosis 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- Primary [facility] Diagnosis Malignant melanoma of neck (Multi)- Primary documented in this encounter [facility] Work Phone: Evaluation note* Diagnosis Routine general medical examination at a health care facility- Primary Obstructive sleep apnea Obstructive sleep apnea (adult) (pediatric) Primary hypertension (CMS/HCC) Unspecified essential hypertension Benign prostatic hyperplasia with urinary obstruction Acquired hypothyroidism (CMS/HCC) Unspecified hypothyroidism Obesity (BMI 30-39.9) Polycythemia vera Malignant melanoma of neck (CMS/HCC) Hyponatremia Hyposmolality and/or hyponatremia [facility]* Diagnosis Malignant melanoma of neck (Multi)- Primary documented in this encounter [facility] Work Phone: Evaluation note* Diagnosis Polycythemia vera (HCC)- Primary [facility] this [facility]* Diagnosis Polycythemia vera (HCC)- Primary documented in this encounter [facility]* Diagnosis Melanocytic nevus of trunk- Primary Benign neoplasm of skin of trunk, except scrotum Melanocytic nevus of lower extremity, unspecified laterality Other atopic dermatitis Seborrheic keratosis Lentigines Capillary angioma Nevus, non-neoplastic Skin tag Unspecified hypertrophic and atrophic condition of skin History of malignant melanoma of skin Personal history of malignant melanoma of skin History of basal cell carcinoma Personal history of other malignant neoplasm of skin History of nevus excision Actinic keratosis Neoplasm of unspecified behavior of bone, soft tissue, and skin [facility]* Diagnosis Polycythemia vera (HCC) documented in this [facility]* Diagnosis Seborrheic keratosis- Primary Melanocytic nevus of trunk Benign neoplasm of skin of trunk, except scrotum Lentigines Capillary angioma Nevus, non-neoplastic History of nevus excision History of basal cell carcinoma Personal history of other malignant neoplasm of skin History of malignant melanoma of skin Personal history of malignant melanoma of skin Melanocytic nevus of lower extremity, unspecified laterality Skin tag Unspecified hypertrophic and atrophic condition of skin Actinic keratosis History of SCC (squamous cell carcinoma) of skin Personal history of other malignant neoplasm of skin [facility] N[facility] - Reported* Type Description Date Medical History Obstructive sleep apnea (adult) (pediatric) Medical HistoryDependence on other enabling machines and devicesMedical History Lymphoma of eye regionMedical HistoryhypothyroidismSurgical History cholecystectomy DEQ Other Hospital Discharge instructions Additional Instructions Follow-up with your primary care doctor [facility]: Reason for visit Narrative* Imaging (Routine) - AuthorizedSpecialtyDiagnoses / ProceduresReferred By ContactReferred To ContactRadiology Diagnoses Malignant melanoma of neck (Multi) Procedures [place] [id number] [address] [id number] Phone: tel: fax: Referral IDStatusReasonStart DateExpiration DateVisits RequestedVisits [id number] Perform Procedure [facility] Work Phone: reason for visit Narrative* Imaging (Routine) - AuthorizedSpecialtyDiagnoses / ProceduresReferred By ContactReferred To ContactRadiology Diagnoses Malignant melanoma of neck (Multi) Procedures [place] [address] [place] [address] Phone: tel: fax: Referral IDStatusReasonStart DateExpiration DateVisits RequestedVisits [id number] Perform Procedure 2 [facility] Work Phone: Rebskc for visit Narrative* Auth/CertSpecialty Diagnoses / ProceduresReferred By ContactReferred To Contact Diagnoses Malignant melanoma of neck (Multi) Malignant melanoma of neck (Multi) [C43.4] Procedures CA EXCISION MALIGNANT LESION F/E/E/N/L >4.0 CM [place] [facility] Lymph Node Biopsy,; Wide local excision left neck melanoma, [place] [address] [place] [address] Phone: tel: fax: [facility] [place] [id number] [place] [phone] fax: Referral IDStatusReasonStart DateExpiration DateVisits RequestedVisits [id number] [facility] Work Phone: Reason for visit Narrative* Auth/CertSpecialty Diagnoses / ProceduresReferred By ContactReferred To Contact Diagnoses Malignant melanoma of neck (Multi) Malignant melanoma of neck (Multi) [C43.4] Procedures CA EXCISION MALIGNANT LESION F/E/E/N/L >4.0 CM LESION EXCISION, [place] [address] [place] [address] Phone: tel: fax: [facility] [place] [address] [place] [phone] fax: Referral IDStatusReasonStart DateExpiration DateVisits RequestedVisits [id number] [facility] Work Phone: Summary Purpose Family History No Family History Records Found Relationship Condition Age at Onset Recorded Date/T natividad family member Hypertension Unknown family memberFamily history of cholecystectomyUnknownDiabetes mellitusUnknown HypertensionUnknownHeart diseaseUnknownbrotherHypothyroidismUnknownNot Specified HypothyroidismUnknownnatural sonHistory of obstructive sleep apneaUnknownsister HypertensionUnknownHypothyroidismUnknown Relationship Condition Age at Onset Recorded Date/T natividad aunt Hypertension Unknown auntFamily history of cholecystectomyUnknownDiabetes mellitusUnknownHypertension UnknownHeart diseaseUnknownbrotherHypothyroidismUnknownmotherHypothyroidism UnknownsonHistory of obstructive sleep apneaUnknownsisterHypertensionUnknown HypothyroidismUnknown Advance Directives No Advanced Directives Records FoundDocuments on File TypeDate RecordedPatient RepresentativeExplanationAdvance Directive(s)05/05/2021 11:14 AMAdvance Directive(s)03/08/2021 12:27 PMAdvance Directive(s)06/08/2020 9:52 AMAdvance Directive(s)10/10/2018 12:06 PMAdvance Directive(s)09/27/2018 9:27 AM Advance Directive(s)01/17/2018 9:38 AMAdvance Directive(s)10/10/2017 10:52 AM Advance Directive(s)09/11/2017 10:30 AMAdvance Directive(s)04/10/2017 12:28 PM Advance Directive Response Recorded Date/ Time Advance Directives No May 10, 2017 3:47pm TypeDate RecordedPatient RepresentativeExplanationAdvance Directive(s)08/05/2021 8:56 AMAdvance Directive(s)08/04/2021 2:55 PMAdvance Directive(s)05/05/2021 11:14 AM Advance Directive(s)03/08/2021 12:27 PMAdvance Directive(s)06/08/2020 9:52 AM Advance Directive(s)10/10/2018 12:06 PMAdvance Directive(s)09/27/2018 9:27 AM Advance Directive(s)01/17/2018 9:38 AMAdvance Directive(s)10/10/2017 10:52 AM Advance Directive(s)09/11/2017 10:30 AMAdvance Directive(s)04/10/2017 12:28 PM TypeDate RecordedPatient RepresentativeExplanationAdvance Directive(s)09/28/2021 12:07 PMAdvance Directive(s)08/05/2021 8:56 AMAdvance Directive(s)08/04/2021 2:55 PM Advance Directive(s)05/05/2021 11:14 AMAdvance Directive(s)03/08/2021 12:27 PM Advance Directive(s)06/08/2020 9:52 AMAdvance Directive(s)10/10/2018 12:06 PM Advance Directive(s)09/27/2018 9:27 AMAdvance Directive(s)01/17/2018 9:38 AM Advance Directive(s)10/10/2017 10:52 AMAdvance Directive(s)09/11/2017 10:30 AM Advance Directive(s)04/10/2017 12:28 PMTypeDate RecordedPatient Head Irrigator ExplanationAdvance Directive(s)09/28/2021 12:07 PMAdvance Directive(s)08/05/2021 8:56 AMAdvance Directive(s)08/04/2021 2:55 PMAdvance Directive(s)05/05/2021 11:14 AM Advance Directive(s)03/08/2021 12:27 PMAdvance Directive(s)06/08/2020 9:52 AM Advance Directive(s)10/10/2018 12:06 PMAdvance Directive(s)09/27/2018 9:27 AM Advance Directive(s)01/17/2018 9:38 AMAdvance Directive(s)10/10/2017 10:52 AM Advance Directive(s)09/11/2017 10:30 AMAdvance Directive(s)04/10/2017 12:28 PM Advance Directive Response Recorded Date/ Time Advance Directives No July 22 9:44am Advance Directive Response Recorded Date/ Time Advance Directives No July 22 8:44am Chief Complaint and Reason for Visit Chief [facility] Chief Complaint Sleep apnea annual f ollow up Chief Complaint G47.33 I10 R55 R42 Chief Complaint G47.33 I10 R55 R42 MATT/ ANNUALReason for VisitOSA treated with BiPAP Chief Complaint Admit Date light headed, low blood pressure Februar y 2024 8:52am Chief Complaint Admit Date light headed, low blood pressure Februar y 2024 8:52am MATT, ANNUAL August 08, 2024 9:5 7am Reason for Visit Admit Date MATT treated with BiPAP August 08, 2024 9:57am Additional Source Comments (unrecognized sect ion and content) No Status Records FoundNo Status Records FoundNo Status Records FoundNo Status Records FoundNo Status Records FoundNo Status Records FoundNo Status Records FoundNo Status Records FoundNo Status Records Found INFORMATION SOURCE (unrecogn ized section and content) DATE CREATED AUTHOR 06/29/2021 [facility] DATE CREATED AUTHOR AUTHOR'S ORGANIZ ATION 11/20/2021 [facility] DATE CREATED AUTHOR AUTHOR'S ORGANIZ ATION 03/18/2022 [facility] DATE CREATED AUTHOR AUTHOR'S ORGANIZ ATION 06/09/2024 [facility] DATE CREATED AUTHOR AUTHOR'S ORGANIZ ATION 06/30/2024 [facility] DATE CREATED AUTHOR AUTHOR'S ORGANIZ ATION 07/07/2024 [facility] DATE CREATED AUTHOR AUTHOR'S ORGANIZ ATION 10/30/2024 [facility] DATE CREATED AUTHOR AUTHOR'S ORGANIZ ATION 02/01/2025 [facility] DATE CREATED AUTHOR AUTHOR'S ORGANIZ ATION 02/16/2025 [facility] EPIC Source Comments (unrecognize d section and content) In the event this informatio n is protected by the Federal Confidentiality of Alcohol and Drug Abuse Patient Records regulations: The Federal rules restrict any use of the information to criminally investigate or prosecute any alcohol or drug abuse patient.[facility] ShawIn the event this information is protected by the Federal Confidentiality of Alcohol and Drug Abuse Patient Records regulations: The Federal rules restrict any use of the information to criminally investigate or prosecute any alcohol or drug abuse patient.[facility] ShawIn the event this information is protected by the Federal Confidentiality of Alcohol and Drug Abuse Patient Records regulations: The Federal rules restrict any use of the information to criminally investigate or prosecute any alcohol or drug abuse patient.[facility] ShawIn the event this information is protected by the Federal Confidentiality of Alcohol and Drug Abuse Patient Records regulations: The Federal rules restrict any use of the information to criminally investigate or prosecute any alcohol or drug abuse patient.[facility] ShawIn the event this information is protected by the Federal Confidentiality of Alcohol and Drug Abuse Patient Records regulations: The Federal rules restrict any use of the information to criminally investigate or prosecute any alcohol or drug abuse patient.[facility] ShawIn the event this information is protected by the Federal Confidentiality of Alcohol and Drug Abuse Patient Records regulations: The Federal rules restrict any use of the information to criminally investigate or prosecute any alcohol or drug abuse patient.[facility] ShawIn the event this information is protected by the Federal Confidentiality of Alcohol and Drug Abuse Patient Records regulations: The Federal rules restrict any use of the information to criminally investigate or prosecute any alcohol or drug abuse patient.[facility] ShawIn the event this information is protected by the Federal Confidentiality of Alcohol and Drug Abuse Patient Records regulations: The Federal rules restrict any use of the information to criminally investigate or prosecute any alcohol or drug abuse patient.[facility] ShawIn the event this information is protected by the Federal Confidentiality of Alcohol and Drug Abuse Patient Records regulations: The Federal rules restrict any use of the information to criminally investigate or prosecute any alcohol or drug abuse patient.[facility] ShawIn the event this information is protected by the Federal Confidentiality of Alcohol and Drug Abuse Patient Records regulations: The Federal rules restrict any use of the information to criminally investigate or prosecute any alcohol or drug abuse patient.[facility] ShawIn the event this information is protected by the Federal Confidentiality of Alcohol and Drug Abuse Patient Records regulations: The Federal rules restrict any use of the information to criminally investigate or prosecute any alcohol or drug abuse patient.[facility] ShawIn the event this information is protected by the Federal Confidentiality of Alcohol and Drug Abuse Patient Records regulations: The Federal rules restrict any use of the information to criminally investigate or prosecute any alcohol or drug abuse patient.[facility] ShawIn the event this information is protected by the Federal Confidentiality of Alcohol and Drug Abuse Patient Records regulations: The Federal rules restrict any use of the information to criminally investigate or prosecute any alcohol or drug abuse patient.[facility] ShawIn the event this information is protected by the Federal Confidentiality of Alcohol and Drug Abuse Patient Records regulations: The Federal rules restrict any use of the information to criminally investigate or prosecute any alcohol or drug abuse patient.[facility] ShawIn the event this information is protected by the Federal Confidentiality of Alcohol and Drug Abuse Patient Records regulations: The Federal rules restrict any use of the information to criminally investigate or prosecute any alcohol or drug abuse patient.[facility] ShawIn the event this information is protected by the Federal Confidentiality of Alcohol and Drug Abuse Patient Records regulations: The Federal rules restrict any use of the information to criminally investigate or prosecute any alcohol or drug abuse patient.[facility] ShawIn the event this information is protected by the Federal Confidentiality of Alcohol and Drug Abuse Patient Records regulations: The Federal rules restrict any use of the information to criminally investigate or prosecute any alcohol or drug abuse patient.[facility] ShawIn the event this information is protected by the Federal Confidentiality of Alcohol and Drug Abuse Patient Records regulations: The Federal rules restrict any use of the information to criminally investigate or prosecute any alcohol or drug abuse patient.[facility] ShawIn the event this information is protected by the Federal Confidentiality of Alcohol and Drug Abuse Patient Records regulations: The Federal rules restrict any use of the information to criminally investigate or prosecute any alcohol or drug abuse patient.[facility] ShawIn the event this information is protected by the Federal Confidentiality of Alcohol and Drug Abuse Patient Records regulations: The Federal rules restrict any use of the information to criminally investigate or prosecute any alcohol or drug abuse patient.[facility] ShawIn the event this information is protected by the Federal Confidentiality of Alcohol and Drug Abuse Patient Records regulations: The Federal rules restrict any use of the information to criminally investigate or prosecute any alcohol or drug abuse patient.[facility] ShawIn the event this information is protected by the Federal Confidentiality of Alcohol and Drug Abuse Patient Records regulations: The Federal rules restrict any use of the information to criminally investigate or prosecute any alcohol or drug abuse patient.[facility] ShawIn the event this information is protected by the Federal Confidentiality of Alcohol and Drug Abuse Patient Records regulations: The Federal rules restrict any use of the information to criminally investigate or prosecute any alcohol or drug abuse patient.[facility] ShawIn the event this information is protected by the Federal Confidentiality of Alcohol and Drug Abuse Patient Records regulations: The Federal rules restrict any use of the information to criminally investigate or prosecute any alcohol or drug abuse patient.[facility] ShawIn the event this information is protected by the Federal Confidentiality of Alcohol and Drug Abuse Patient Records regulations: The Federal rules restrict any use of the information to criminally investigate or prosecute any alcohol or drug abuse patient.[facility] ShawIn the event this information is protected by the Federal Confidentiality of Alcohol and Drug Abuse Patient Records regulations: The Federal rules restrict any use of the information to criminally investigate or prosecute any alcohol or drug abuse patient.[facility] ShawIn the event this information is protected by the Federal Confidentiality of Alcohol and Drug Abuse Patient Records regulations: The Federal rules restrict any use of the information to criminally investigate or prosecute any alcohol or drug abuse patient.[facility] ShawIn the event this information is protected by the Federal Confidentiality of Alcohol and Drug Abuse Patient Records regulations: The Federal rules restrict any use of the information to criminally investigate or prosecute any alcohol or drug abuse patient.[facility] ShawIn the event this information is protected by the Federal Confidentiality of Alcohol and Drug Abuse Patient Records regulations: The Federal rules restrict any use of the information to criminally investigate or prosecute any alcohol or drug abuse patient.[facility] ShawIn the event this information is protected by the Federal Confidentiality of Alcohol and Drug Abuse Patient Records regulations: The Federal rules restrict any use of the information to criminally investigate or prosecute any alcohol or drug abuse patient.[facility] ShawIn the event this information is protected by the Federal Confidentiality of Alcohol and Drug Abuse Patient Records regulations: The Federal rules restrict any use of the information to criminally investigate or prosecute any alcohol or drug abuse patient.[facility] ShawIn the event this information is protected by the Federal Confidentiality of Alcohol and Drug Abuse Patient Records regulations: The Federal rules restrict any use of the information to criminally investigate or prosecute any alcohol or drug abuse patient.[facility] ShawIn the event this information is protected by the Federal Confidentiality of Alcohol and Drug Abuse Patient Records regulations: The Federal rules restrict any use of the information to criminally investigate or prosecute any alcohol or drug abuse patient.[facility] ShawIn the event this information is protected by the Federal Confidentiality of Alcohol and Drug Abuse Patient Records regulations: The Federal rules restrict any use of the information to criminally investigate or prosecute any alcohol or drug abuse patient.[facility] ShawIn the event this information is protected by the Federal Confidentiality of Alcohol and Drug Abuse Patient Records regulations: The Federal rules restrict any use of the information to criminally investigate or prosecute any alcohol or drug abuse patient.[facility] ShawIn the event this information is protected by the Federal Confidentiality of Alcohol and Drug Abuse Patient Records regulations: The Federal rules restrict any use of the information to criminally investigate or prosecute any alcohol or drug abuse patient.[facility] ShawIn the event this information is protected by the Federal Confidentiality of Alcohol and Drug Abuse Patient Records regulations: The Federal rules restrict any use of the information to criminally investigate or prosecute any alcohol or drug abuse patient.[facility] ShawIn the event this information is protected by the Federal Confidentiality of Alcohol and Drug Abuse Patient Records regulations: The Federal rules restrict any use of the information to criminally investigate or prosecute any alcohol or drug abuse patient.[facility] ShawIn the event this information is protected by the Federal Confidentiality of Alcohol and Drug Abuse Patient Records regulations: The Federal rules restrict any use of the information to criminally investigate or prosecute any alcohol or drug abuse patient.[facility] ShawIn the event this information is protected by the Federal Confidentiality of Alcohol and Drug Abuse Patient Records regulations: The Federal rules restrict any use of the information to criminally investigate or prosecute any alcohol or drug abuse patient.[facility] ShawIn the event this information is protected by the Federal Confidentiality of Alcohol and Drug Abuse Patient Records regulations: The Federal rules restrict any use of the information to criminally investigate or prosecute any alcohol or drug abuse patient.[facility] ShawIn the event this information is protected by the Federal Confidentiality of Alcohol and Drug Abuse Patient Records regulations: The Federal rules restrict any use of the information to criminally investigate or prosecute any alcohol or drug abuse patient.[facility] ShawIn the event this information is protected by the Federal Confidentiality of Alcohol and Drug Abuse Patient Records regulations: The Federal rules restrict any use of the information to criminally investigate or prosecute any alcohol or drug abuse patient.[facility], [facility] ShawIn the event this information is protected by the Federal Confidentiality of Alcohol and Drug Abuse Patient Records regulations: The Federal rules restrict any use of the information to criminally investigate or prosecute any alcohol or drug abuse patient.[facility] ShawIn the event this information is protected by the Federal Confidentiality of Alcohol and Drug Abuse Patient Records regulations: The Federal rules restrict any use of the information to criminally investigate or prosecute any alcohol or drug abuse patient.[facility] ShawIn the event this information is protected by the Federal Confidentiality of Alcohol and Drug Abuse Patient Records regulations: The Federal rules restrict any use of the information to criminally investigate or prosecute any alcohol or drug abuse patient.[facility] ShawIn the event this information is protected by the Federal Confidentiality of Alcohol and Drug Abuse Patient Records regulations: The Federal rules restrict any use of the information to criminally investigate or prosecute any alcohol or drug abuse patient.[facility] ShawIn the event this information is protected by the Federal Confidentiality of Alcohol and Drug Abuse Patient Records regulations: The Federal rules restrict any use of the information to criminally investigate or prosecute any alcohol or drug abuse patient.[facility] ShawIn the event this information is protected by the Federal Confidentiality of Alcohol and Drug Abuse Patient Records regulations: The Federal rules restrict any use of the information to criminally investigate or prosecute any alcohol or drug abuse patient.[facility] ShawIn the event this information is protected by the Federal Confidentiality of Alcohol and Drug Abuse Patient Records regulations: The Federal rules restrict any use of the information to criminally investigate or prosecute any alcohol or drug abuse patient.[facility] ShawIn the event this information is protected by the Federal Confidentiality of Alcohol and Drug Abuse Patient Records regulations: The Federal rules restrict any use of the information to criminally investigate or prosecute any alcohol or drug abuse patient.[facility] ShawIn the event this information is protected by the Federal Confidentiality of Alcohol and Drug Abuse Patient Records regulations: The Federal rules restrict any use of the information to criminally investigate or prosecute any alcohol or drug abuse patient.[facility] ShawIn the event this information is protected by the Federal Confidentiality of Alcohol and Drug Abuse Patient Records regulations: The Federal rules restrict any use of the information to criminally investigate or prosecute any alcohol or drug abuse patient.[facility] ShawIn the event this information is protected by the Federal Confidentiality of Alcohol and Drug Abuse Patient Records regulations: The Federal rules restrict any use of the information to criminally investigate or prosecute any alcohol or drug abuse patient.[facility] ShawIn the event this information is protected by the Federal Confidentiality of Alcohol and Drug Abuse Patient Records regulations: The Federal rules restrict any use of the information to criminally investigate or prosecute any alcohol or drug abuse patient.[facility] ShawIn the event this information is protected by the Federal Confidentiality of Alcohol and Drug Abuse Patient Records regulations: The Federal rules restrict any use of the information to criminally investigate or prosecute any alcohol or drug abuse patient.[facility] ShawIn the event this information is protected by the Federal Confidentiality of Alcohol and Drug Abuse Patient Records regulations: The Federal rules restrict any use of the information to criminally investigate or prosecute any alcohol or drug abuse patient.[facility] ShawIn the event this information is protected by the Federal Confidentiality of Alcohol and Drug Abuse Patient Records regulations: The Federal rules restrict any use of the information to criminally investigate or prosecute any alcohol or drug abuse patient.[facility] ShawIn the event this information is protected by the Federal Confidentiality of Alcohol and Drug Abuse Patient Records regulations: The Federal rules restrict any use of the information to criminally investigate or prosecute any alcohol or drug abuse patient.[facility] ShawIn the event this information is protected by the Federal Confidentiality of Alcohol and Drug Abuse Patient Records regulations: The Federal rules restrict any use of the information to criminally investigate or prosecute any alcohol or drug abuse patient.[facility] ShawIn the event this information is protected by the Federal Confidentiality of Alcohol and Drug Abuse Patient Records regulations: The Federal rules restrict any use of the information to criminally investigate or prosecute any alcohol or drug abuse patient.[facility] ShawIn the event this information is protected by the Federal Confidentiality of Alcohol and Drug Abuse Patient Records regulations: The Federal rules restrict any use of the information to criminally investigate or prosecute any alcohol or drug abuse patient.[facility] ShawIn the event this information is protected by the Federal Confidentiality of Alcohol and Drug Abuse Patient Records regulations: The Federal rules restrict any use of the information to criminally investigate or prosecute any alcohol or drug abuse patient.[facility] ShawIn the event this information is protected by the Federal Confidentiality of Alcohol and Drug Abuse Patient Records regulations: The Federal rules restrict any use of the information to criminally investigate or prosecute any alcohol or drug abuse patient.[facility] ShawIn the event this information is protected by the Federal Confidentiality of Alcohol and Drug Abuse Patient Records regulations: The Federal rules restrict any use of the information to criminally investigate or prosecute any alcohol or drug abuse patient.[facility] ShawIn the event this information is protected by the Federal Confidentiality of Alcohol and Drug Abuse Patient Records regulations: The Federal rules restrict any use of the information to criminally investigate or prosecute any alcohol or drug abuse patient.[facility] ShawIn the event this information is protected by the Federal Confidentiality of Alcohol and Drug Abuse Patient Records regulations: The Federal rules restrict any use of the information to criminally investigate or prosecute any alcohol or drug abuse patient.[facility] ShawIn the event this information is protected by the Federal Confidentiality of Alcohol and Drug Abuse Patient Records regulations: The Federal rules restrict any use of the information to criminally investigate or prosecute any alcohol or drug abuse patient.[facility] ShawIn the event this information is protected by the Federal Confidentiality of Alcohol and Drug Abuse Patient Records regulations: The Federal rules restrict any use of the information to criminally investigate or prosecute any alcohol or drug abuse patient.[facility] ShawIn the event this information is protected by the Federal Confidentiality of Alcohol and Drug Abuse Patient Records regulations: The Federal rules restrict any use of the information to criminally investigate or prosecute any alcohol or drug abuse patient.[facility] ShawIn the event this information is protected by the Federal Confidentiality of Alcohol and Drug Abuse Patient Records regulations: The Federal rules restrict any use of the information to criminally investigate or prosecute any alcohol or drug abuse patient.[facility] ShawIn the event this information is protected by the Federal Confidentiality of Alcohol and Drug Abuse Patient Records regulations: The Federal rules restrict any use of the information to criminally investigate or prosecute any alcohol or drug abuse patient.[facility] ShawIn the event this information is protected by the Federal Confidentiality of Alcohol and Drug Abuse Patient Records regulations: The Federal rules restrict any use of the information to criminally investigate or prosecute any alcohol or drug abuse patient.[facility] ShawIn the event this information is protected by the Federal Confidentiality of Alcohol and Drug Abuse Patient Records regulations: The Federal rules restrict any use of the information to criminally investigate or prosecute any alcohol or drug abuse patient.[facility] ShawIn the event this information is protected by the Federal Confidentiality of Alcohol and Drug Abuse Patient Records regulations: The Federal rules restrict any use of the information to criminally investigate or prosecute any alcohol or drug abuse patient.[facility] ShawIn the event this information is protected by the Federal Confidentiality of Alcohol and Drug Abuse Patient Records regulations: The Federal rules restrict any use of the information to criminally investigate or prosecute any alcohol or drug abuse patient.[facility] ShawIn the event this information is protected by the Federal Confidentiality of Alcohol and Drug Abuse Patient Records regulations: The Federal rules restrict any use of the information to criminally investigate or prosecute any alcohol or drug abuse patient.[facility] ShawIn the event this information is protected by the Federal Confidentiality of Alcohol and Drug Abuse Patient Records regulations: The Federal rules restrict any use of the information to criminally investigate or prosecute any alcohol or drug abuse patient.[facility] ShawIn the event this information is protected by the Federal Confidentiality of Alcohol and Drug Abuse Patient Records regulations: The Federal rules restrict any use of the information to criminally investigate or prosecute any alcohol or drug abuse patient.[facility] ShawIn the event this information is protected by the Federal Confidentiality of Alcohol and Drug Abuse Patient Records regulations: The Federal rules restrict any use of the information to criminally investigate or prosecute any alcohol or drug abuse patient.[facility] ShawIn the event this information is protected by the Federal Confidentiality of Alcohol and Drug Abuse Patient Records regulations: The Federal rules restrict any use of the information to criminally investigate or prosecute any alcohol or drug abuse patient.[facility] ShawIn the event this information is protected by the Federal Confidentiality of Alcohol and Drug Abuse Patient Records regulations: The Federal rules restrict any use of the information to criminally investigate or prosecute any alcohol or drug abuse patient.[facility] ShawIn the event this information is protected by the Federal Confidentiality of Alcohol and Drug Abuse Patient Records regulations: The Federal rules restrict any use of the information to criminally investigate or prosecute any alcohol or drug abuse patient.[facility] ShawIn the event this information is protected by the Federal Confidentiality of Alcohol and Drug Abuse Patient Records regulations: The Federal rules restrict any use of the information to criminally investigate or prosecute any alcohol or drug abuse patient.[facility] ShawIn the event this information is protected by the Federal Confidentiality of Alcohol and Drug Abuse Patient Records regulations: The Federal rules restrict any use of the information to criminally investigate or prosecute any alcohol or drug abuse patient.[facility] ShawIn the event this information is protected by the Federal Confidentiality of Alcohol and Drug Abuse Patient Records regulations: The Federal rules restrict any use of the information to criminally investigate or prosecute any alcohol or drug abuse patient.[facility] ShawIn the event this information is protected by the Federal Confidentiality of Alcohol and Drug Abuse Patient Records regulations: The Federal rules restrict any use of the information to criminally investigate or prosecute any alcohol or drug abuse patient.[facility] ShawIn the event this information is protected by the Federal Confidentiality of Alcohol and Drug Abuse Patient Records regulations: The Federal rules restrict any use of the information to criminally investigate or prosecute any alcohol or drug abuse patient.[facility] ShawIn the event this information is protected by the Federal Confidentiality of Alcohol and Drug Abuse Patient Records regulations: The Federal rules restrict any use of the information to criminally investigate or prosecute any alcohol or drug abuse patient.[facility] ShawIn the event this information is protected by the Federal Confidentiality of Alcohol and Drug Abuse Patient Records regulations: The Federal rules restrict any use of the information to criminally investigate or prosecute any alcohol or drug abuse patient.[facility] ShawIn the event this information is protected by the Federal Confidentiality of Alcohol and Drug Abuse Patient Records regulations: The Federal rules restrict any use of the information to criminally investigate or prosecute any alcohol or drug abuse patient.[facility] ShawIn the event this information is protected by the Federal Confidentiality of Alcohol and Drug Abuse Patient Records regulations: The Federal rules restrict any use of the information to criminally investigate or prosecute any alcohol or drug abuse patient.[facility] ShawIn the event this information is protected by the Federal Confidentiality of Alcohol and Drug Abuse Patient Records regulations: The Federal rules restrict any use of the information to criminally investigate or prosecute any alcohol or drug abuse patient.[facility] ShawIn the event this information is protected by the Federal Confidentiality of Alcohol and Drug Abuse Patient Records regulations: The Federal rules restrict any use of the information to criminally investigate or prosecute any alcohol or drug abuse patient.[facility] ShawIn the event this information is protected by the Federal Confidentiality of Alcohol and Drug Abuse Patient Records regulations: The Federal rules restrict any use of the information to criminally investigate or prosecute any alcohol or drug abuse patient.[facility] ShawIn the event this information is protected by the Federal Confidentiality of Alcohol and Drug Abuse Patient Records regulations: The Federal rules restrict any use of the information to criminally investigate or prosecute any alcohol or drug abuse patient.[facility] ShawIn the event this information is protected by the Federal Confidentiality of Alcohol and Drug Abuse Patient Records regulations: The Federal rules restrict any use of the information to criminally investigate or prosecute any alcohol or drug abuse patient.[facility] ShawIn the event this information is protected by the Federal Confidentiality of Alcohol and Drug Abuse Patient Records regulations: The Federal rules restrict any use of the information to criminally investigate or prosecute any alcohol or drug abuse patient.[facility] ShawIn the event this information is protected by the Federal Confidentiality of Alcohol and Drug Abuse Patient Records regulations: The Federal rules restrict any use of the information to criminally investigate or prosecute any alcohol or drug abuse patient.[facility] ShawIn the event this information is protected by the Federal Confidentiality of Alcohol and Drug Abuse Patient Records regulations: The Federal rules restrict any use of the information to criminally investigate or prosecute any alcohol or drug abuse patient.[facility] ShawIn the event this information is protected by the Federal Confidentiality of Alcohol and Drug Abuse Patient Records regulations: The Federal rules restrict any use of the information to criminally investigate or prosecute any alcohol or drug abuse patient.[facility] ShawIn the event this information is protected by the Federal Confidentiality of Alcohol and Drug Abuse Patient Records regulations: The Federal rules restrict any use of the information to criminally investigate or prosecute any alcohol or drug abuse patient.[facility] ShawIn the event this information is protected by the Federal Confidentiality of Alcohol and Drug Abuse Patient Records regulations: The Federal rules restrict any use of the information to criminally investigate or prosecute any alcohol or drug abuse patient.[facility] ShawIn the event this information is protected by the Federal Confidentiality of Alcohol and Drug Abuse Patient Records regulations: The Federal rules restrict any use of the information to criminally investigate or prosecute any alcohol or drug abuse patient.[facility] ShawIn the event this information is protected by the Federal Confidentiality of Alcohol and Drug Abuse Patient Records regulations: The Federal rules restrict any use of the information to criminally investigate or prosecute any alcohol or drug abuse patient.[facility] ShawIn the event this information is protected by the Federal Confidentiality of Alcohol and Drug Abuse Patient Records regulations: The Federal rules restrict any use of the information to criminally investigate or prosecute any alcohol or drug abuse patient.[facility] ShawIn the event this information is protected by the Federal Confidentiality of Alcohol and Drug Abuse Patient Records regulations: The Federal rules restrict any use of the information to criminally investigate or prosecute any alcohol or drug abuse patient.[facility] ShawIn the event this information is protected by the Federal Confidentiality of Alcohol and Drug Abuse Patient Records regulations: The Federal rules restrict any use of the information to criminally investigate or prosecute any alcohol or drug abuse patient.[facility] ShawIn the event this information is protected by the Federal Confidentiality of Alcohol and Drug Abuse Patient Records regulations: The Federal rules restrict any use of the information to criminally investigate or prosecute any alcohol or drug abuse patient.[facility] ShawIn the event this information is protected by the Federal Confidentiality of Alcohol and Drug Abuse Patient Records regulations: The Federal rules restrict any use of the information to criminally investigate or prosecute any alcohol or drug abuse patient.[facility] ShawIn the event this information is protected by the Federal Confidentiality of Alcohol and Drug Abuse Patient Records regulations: The Federal rules restrict any use of the information to criminally investigate or prosecute any alcohol or drug abuse patient.[facility] ShawIn the event this information is protected by the Federal Confidentiality of Alcohol and Drug Abuse Patient Records regulations: The Federal rules restrict any use of the information to criminally investigate or prosecute any alcohol or drug abuse patient.[facility] ShawIn the event this information is protected by the Federal Confidentiality of Alcohol and Drug Abuse Patient Records regulations: The Federal rules restrict any use of the information to criminally investigate or prosecute any alcohol or drug abuse patient.[facility] ShawIn the event this information is protected by the Federal Confidentiality of Alcohol and Drug Abuse Patient Records regulations: The Federal rules restrict any use of the information to criminally investigate or prosecute any alcohol or drug abuse patient.[facility] ShawIn the event this information is protected by the Federal Confidentiality of Alcohol and Drug Abuse Patient Records regulations: The Federal rules restrict any use of the information to criminally investigate or prosecute any alcohol or drug abuse patient.[facility] ShawIn the event this information is protected by the Federal Confidentiality of Alcohol and Drug Abuse Patient Records regulations: The Federal rules restrict any use of the information to criminally investigate or prosecute any alcohol or drug abuse patient.[facility] Reason for Visit (unrecogniz ed section and content) ReasonCommentsPRVFollow upSpecialtyDiagnoses / ProceduresReferred By Contact Referred To ContactLaboratory Medicine / LABORATORY MEDICINE Diagnoses 12 week follow up lab and possible phlebotomy Procedures LAB BLOOD DRAW Nicolasa Rhoades, YOUTH MINISTER.[facility] [address] [place] [address] Ileana [place] [facility] [place] [address] Referral IDStatusReasonStart DateExpiration DateVisits RequestedVisits [id number] Financial Clearance Required - Self Pay Patient Cleared - True Self-Pay required payment collected /[id number] Ulcer Follow UpSpecialtyDiagnoses / ProceduresReferred By ContactReferred To ContactOPHTHALMOLOGY Diagnoses Return in about 1 week (around 09/27/2021) for Dr. Fuchs . Cornea Procedures est adult Gabo Fuchs MD [address] [place] [address] Gabo Fuchs MD [address] [place] [address] Referral IDStatusReasonStart DateExpiration DateVisits RequestedVisits [id number] Patient Cleared - True Self-Pay required payment collected OON/Self Pay Override /[id number]rbDncfwaQaedxiopSkf Problem ODReason CommentsPost op complicationsReasonCommentsPost-op (Ophthalmology) Right EyeS/P OD KERATOPLASTY PENETRATING IN PSEUDOPHAKIA 2ReasonCommentsPost-op (Ophthalmology) Right Eye-s/p OD KERATOPLASTY PENETRATING IN PSEUDOPHAKIA 2ReasonCommentsPost-op (Ophthalmology) ODs/p PK OD for melt (08/05/21), s/p PKP/ECCE/avit ODReasonCommentsEye Pain ODReasonCommentsCentral corneal ulcer of right eye-s/p PK OD for melt (08/05/21), s/p PKP/ECCE/avit ODReasonComments Corneal Ulcer Follow UpODReasonCommentsPolycythemia vera8 week follow upReason CommentsPost-op (Ophthalmology) Right EyeReasonOnset DateCommentsRefill Request 10/07/2021HydreaSpecialtyDiagnoses / ProceduresReferred By ContactReferred To [facility] CANCER AP[facility] Diagnoses Polycythemia vera d45 Procedures REFERRAL TO [facility] FINANCIAL COUNSELOR Mario Siddiqui MD [address] [place] [address] [facility] [address] [place] [address] Referral IDStatusReasonStart DateExpiration DateVisits RequestedVisits [id number] Review Financial Clearance Required - OON Payor OON/Self Pay Override /[id number] DateCommentsRefill Zfnfojz87/23/2022Reason CommentsMedication QuestionReasonCommentspolycythemia veraSpecialtyDiagnoses / ProceduresReferred By ContactReferred To ContactS[facility] Diagnoses Polycythemia vera d45 Procedures REFERRAL TO CC FINANCIAL COUNSELOR Mario Siddiqui MD [address] [place] [address] [facility] [address] [place] [address] ReasonOnset DateCommentsRefill Wrjjhpj07/18/2022ReasonCommentsPost Op Follow Up ReasonCommentsPatient QuestionReasonCommentsResultsReasonCommentsAppointment ReasonOnset DateCommentsRefill Duyzumi24/05/2022ReasonCommentsPolycythemia vera6 week follow upReasonCommentsPost-op (Ophthalmology) Right EyePKP/ECCE/avit OD with subsequent AMG/temp tars ODReasonCommentsRefill RequestReasonCommentsfollow up right eyePKP/ECCE/avit OD with subsequent AMG/temp tars ODReasonComments Central corneal ulcer of right eyePKP/ECCE/avit OD with subsequent AMG/temp tars ODReasonCommentsCornea Transplant Follow UpTrichiasis Follow UpReasonComments Patient UpdateReasonCommentsCornea transplantAbrasionReasonCommentsPerforated Corneal Ulcer Follow UpReasonCommentsReturning Patient's CallReasonComments Perforated corneal ulcerReasonCommentsOrdersReasonOnset DateCommentsRefill Ayvihzb8503/13/2023ReasonCommentsPolycythemia vera (HCC)ReasonCommentsRed Eye Corneal scarReasonCommentsCentral corneal ulcer of right eyeCorneal scar, right eyeReasonOnset DateCommentsRefill Opbanle9903/23/2023SpecialtyDiagnoses / ProceduresReferred By ContactReferred To ContactLaboratory Medicine / LABORATORY MEDICINE Diagnoses 12 week follow up lab and possible phlebotomy Procedures LAB BLOOD DRAW Nicolasa Rhoades, SAMIA.[facility] [address] [place] [address] [facility] [place] [address] [address] ReasonCommentspolycythemia veraFollow upReasonCommentsCorneal Ulcer Follow Up Right EyeS/P: Epilation of Trichiasis OD 04/18/23ReasonCommentsEye Problem Right EyeReasonCommentsEye Pain Right EyeReasonCommentsCentral corneal ulcerRight Eye Trichiasis Follow UpRight Upper EyelidNeurotrophic keratoconjunctivitisRight Eye ReasonCommentsCentral corneal ulcer of right eyeReasonCommentsLab OrdersReason CommentsPolycythemia veraReasonOnset DateCommentsRefill Jgnlqiq57/06/2024Reason CommentsNeurotrophic keratoconjunctivitis of right eyeReasonCommentsHydrea RX problems with refillReasonCommentsNeurotrophic keratoconjunctitisReasonComments Skin CheckSpecialtyDiagnoses / ProceduresReferred By ContactReferred To Contact Dermatology Diagnoses Skin lesion Procedures CA OFFICE/OUTPATIENT [facility] 60 MINUTES Romulo Clark, [address] [place] [address] Phone: tel: fax: Taylor Marquez, YOUTH MINISTER-METER/RELAY CRAFTSMAN [address] [place] [address] Phone: tel: fax: Referral IDStatusReasonStart DateExpiration DateVisits RequestedVisits [id number] Specialty Services Required /[id number]xk keratoconjunctivitisrightReason CommentsNeurotrophic keratoconj.perforated corneaReasonComments[facility] Surgery SpecialtyDiagnoses / ProceduresReferred By ContactReferred To ContactDermatology Diagnoses Malignant melanoma of scalp and neck (Multi) Basal cell carcinoma of skin of other parts of face Serg Foster MD PhD [address] [facility] [address] [place] [address] Phone: tel: fax:[phone] Referral IDStatusReasonStart DateExpiration DateVisits RequestedVisits [id number] Specialty Services Required /[id number] Patient VisitReasonCommentsFollow Up For Corneal prforation ODReasonOnset DateCommentsRefill Xpamjoa9206/16/2024Reason CommentsFollow-upReasonCommentsNeurotrophic keratoconjunctivitisReasonM[facility] Vsicmx-hnNqrpyvEmuqwwgnDxygVdjetkClkqknpqDnfs-pn (Ophthalmology) Right EyeS/P EVISCERATION OF OCULAR CONTENTS W/ IMPLANT - Right with Marta Salazar MD on 06/23/2024ReasonCommentsPost-op VisitReasonCommentsPost OpReasonComments Medicare Annual Wellness Visit InitialReasonCommentsPolycythemia veraTOC/ follow upReasonCommentsSkin CheckSuspicious Skin LesionReasonOnset DateCommentsRefill Wsxixab2512/04/2024 Care Teams (unrecognized sec tion and content) Team Status: Active Member Role Status Dates Romulo Clark DO Primary Care Provider Active Team Status: Inactive Member Role Status Dates Romulo Clark DO Primary Care Provider Active Ivanna Samayoa NPAttending ProviderActiveTeam MemberRelationshipSpecialtyStart DateEnd Date Romulo Calrk [address] [facility] [address] [place] [address] PCP - GeneralFamily Tptfrjio54/11/17Team MemberRelationshipSpecialtyStart Date End Date Romulo Clark [address] [place] [address] PCP - GeneralFamily Pvejbdbi00/11/17am MemberRelationshipSpecialtyStart Date End Date Romulo Clark [address] [place] [address] PCP - GeneralFamily Phiwhslx70/11/17am MemberRelationshipSpecialtyStart Date End Date Romulo Clark [address] [place] [address] PCP - GeneralFamily Bgdnqetb11/11/17am MemberRelationshipSpecialtyStart Date End Date Romulo Clark [address] [place] [address] PCP - GeneralFamily Izqnatyv11/11/17am MemberRelationshipSpecialtyStart Date End Date Romulo Clark [address] [place] [address] PCP - GeneralFamily Vvcydebq51/11/17 MemberRelationshipSpecialtyStart Date End Date Romulo Clark [address] [place] [address] PCP - GeneralFamily Tumhflip91/11/17 MemberRelationshipSpecialtyStart Date End Date Romulo Clark [address] [place] [address] PCP - GeneralFamily Ufffspxe29/11/17Team MemberRelationshipSpecialtyStart Date End Date Romulo Clark [address] [place] [address] PCP - GeneralFamily Phcbzibp70/11/17Team MemberRelationshipSpecialtyStart Date End Date Romulo Clark [address] [place] [address] PCP - GeneralFamily Gefiausr09/11/17 MemberRelationshipSpecialtyStart Date End Date Romulo Clark [address] [place] [address] PCP - GeneralFamily Rzhlgzac74/11/17 MemberRelationshipSpecialtyStart Date End Date Romulo Clark [address] [place] [address] [facility] Mukfczdc78/11/17 MemberRelationshipSpecialtyStart Date End Date Romulo Clark [address] [place] [address] [facility] - [facility] Veyonsem39/11/17 MemberRelationshipSpecialtyStart Date End Date Romulo Clark [address] [place] [address] [facility] - [facility] Mjertpzh29/11/17 MemberRelationshipSpecialtyStart Date End Date Romulo Clark [address] [place] [address] PCP - GeneralFamily Pcuupszq65/11/17 MemberRelationshipSpecialtyStart Date End Date Romulo Clark [address] [place] [address] PCP - GeneralFamily Gfvejnbe02/11/17 MemberRelationshipSpecialtyStart Date End Date Romulo Clark [address] [place] [address] PCP - GeneralFamily Ubtvqxpz23/11/17 MemberRelationshipSpecialtyStart Date End Date Romulo Clark [address] [place] [address] [facility]04/09/17Te MemberRelationshipSpecialtyStart Date End Date Romulo Clark [address] [place] [address] (Fax) [facility] - [facility]04/09/17Te MemberRelationshipSpecialtyStart Date End Date Romulo Clark [address] [place] [address] (Fax) [facility]04/09/17Te MemberRelationshipSpecialtyStart Date End Date Romulo Clark [address] [place] [address] [facility]04/09/17Te MemberRelationshipSpecialtyStart Date End Date Romulo Clark [address] [place] [address] [facility]04/09/17Te MemberRelationshipSpecialtyStart Date End Date Romulo Clark [address] [place] [address] [facility] - [facility]04/09/17Te MemberRelationshipSpecialtyStart Date End Date Romulo Clark [address] [place] [address] (Fax) [facility]04/09/17Team MemberRelationshipSpecialtyStart Date End Date Romulo Clark [address] [place] [address] PCP - GeneralFamily Dbxvpbcp67/11/17Team MemberRelationshipSpecialtyStart Date End Date Romulo Clark [address] [place] [address] PCP - Generalmily Ihhbktcy15/11/17Team MemberRelationshipSpecialtyStart Date End Date Romulo Clark [address] [place] [address] PCP - Generalmily Ijsaonlx00/11/17Team MemberRelationshipSpecialtyStart Date End Date Romulo Clark [address] [place] [address] PCP - [facility] Yprvffzy04/11/17Team MemberRelationshipSpecialtyStart Date End Date Romulo Clark [address] [place] [address] PCP - Generalmi Wvrwhsqe70/11/17Team MemberRelationshipSpecialtyStart Date End Date Romulo Clark [address] [place] [address] PCP - Generalmily Rblpdihf64/11/17Team MemberRelationshipSpecialtyStart Date End Date Romulo Clark [address] [place] [address] PCP - Generalmily Cnthstrl90/11/17Team MemberRelationshipSpecialtyStart Date End Date Romulo Clark [address] [place] [address] PCP - Generalmily Zazpgajz21/11/17Team MemberRelationshipSpecialtyStart Date End Date Romulo Clark, DO [address] [place] [address] PCP - [facility] Qsljivjn50/11/17 MemberRelationshipSpecialtyStart Date End Date Romulo Clark, DO [address] [place] [address] PCP - [facility]04/09/17am MemberRelationshipSpecialtyStart Date End Date Romulo Clark, DO [address] [place] [address] PCP - [facility] Lrujbycc26/11/17am MemberRelationshipSpecialtyStart Date End Date Romulo Clark, DO [address] [place] [address] PCP - [facility] Cicmzmnv37/11/17 MemberRelationshipSpecialtyStart Date End Date Romulo Clark, DO [address] [place] [address] PCP - [facility] Upaxppkb26/11/17Team MemberRelationshipSpecialtyStart Date End Date Romulo Clark, DO [address] [place] [address] PCP - [facility] Lnopjbjd74/11/17am MemberRelationshipSpecialtyStart Date End Date Romulo Clark, DO [address] [place] [address] PCP - Generalmily Fdrvjrqm93/11/17Team MemberRelationshipSpecialtyStart Date End Date Romulo Clark, DO [address] [place] [address] PCP - [facility]04/09/17Te MemberRelationshipSpecialtyStart Date End Date Romulo Clark DO [address] [place] [address] PCP - [facility]04/09/17Te MemberRelationshipSpecialtyStart Date End Date Romulo Clark, DO [address] [place] [address] [facility] - [facility]04/09/17Te MemberRelationshipSpecialtyStart Date End Date Romulo Clark, DO [address] [place] [address] [facility]04/09/17Te MemberRelationshipSpecialtyStart Date End Date Romulo Clark DO [address] [place] [address] PCP - [facility]04/09/17Te MemberRelationshipSpecialtyStart Date End Date Romulo Clark, DO [address] [place] [address] PCP - [facility]04/09/17 Team Status: Inactive Member Role Status Dates Romulo Clark DO Primary Care Provi ashanti, Attending Provider Active Start: August 03, 2023 End: August 03, 2023 Team Status: Inactive Member Role Status Dates Romulo Clark DO Primary Care Provider Active Start: August 10, 2023 End: August 10, 2023Heidi SAMIA Rowell ACNP-BCAttending ProviderActiveStart: August 10, 2023 End: August 10, 2023Team MemberRelationshipSpecialtyStart DateEnd Date Romulo Clark, DO [address] [place] [address] PCP - [facility] Tjvhgeso58/11/17Team MemberRelationshipSpecialtyStart Date End Date Romulo Clark, DO [address] [place] [address] PCP - [facility] Cnsnwufb72/11/17Team MemberRelationshipSpecialtyStart Date End Date Romulo Clark DO [address] [place] [address] PCP - [facility] Medicine09/05/22Team MemberRelationshipSpecialtyStart DateEnd Date Romulo Clark, DO [address] [place] [address] [facility]09/05/22Team MemberRelationshipSpecialtyStart DateEnd Date Romulo Clark, DO [address] [place] [address] PCP - [facility] Nnfsptyb56/11/17Team MemberRelationshipSpecialtyStart Date End Date Romulo Clark, DO [address] [place] [address] [facility] Jhxbcyuk08/11/17Team MemberRelationshipSpecialtyStart Date End Date Romulo Clark, DO [address] [place] [address] [facility]09/05/22Team MemberRelationshipSpecialtyStart DateEnd Date Romulo Clark, DO [address] [place] [address] [facility]09/05/22Team MemberRelationshipSpecialtyStart DateEnd Date Romulo Clark, DO [address] [place] [address] PCP - [facility] Xjthqtqv19/11/17Team MemberRelationshipSpecialtyStart Date End Date Romulo Clark, DO [address] [place] [address] PCP - [facility] Dmelbhxs26/11/17 Romulo Clark, DO [address] [place] [address] [facility]erring[facility] Medicine06/05/24Te MemberRelationshipSpecialtyStart DateEnd Date Romulo Clark, DO [address] [place] [address] PCP - [facility] Uheccjpi77/11/17 Romulo Clark, DO [address] [place] [address] [facility]erring[facility] Medicine06/05/24Team MemberRelationshipSpecialtyStart DateEnd Date Romulo Clark, DO [address] [place] [address] PCP - GeneralFamily Cyhezpfk85/11/17 Romulo Clark DO [address] [place] [address] ReferringFami Medicine06/05/24Team MemberRelationshipSpecialtyStart DateEnd Date Romulo Clark DO [address] [place] [address] PCP - [facility] Fsdkjslo15/11/17 Romulo Clark DO [address] [place] [address] Referringmi Medicine06/05/24Team MemberRelationshipSpecialtyStart DateEnd Date Romulo Clark, [address] [place] [address] PCP - [facility] Gesgxxqw45/11/17 Romulo Clark, [address] [place] [address] [facility]erring[facility] Medicine06/05/24 Team Status: Inactive Member Role Status Dates Romulo Clark DO Primary Care Provider Active Start: June 17, 2024 End: June 17, 2024Wesley Newell DOEmergenkia ProviderActiveStart: June 17, 2024 End: June 17, 2024Team MemberRelationshipSpecialtyStart DateEnd Date Romulo Clark DO [address] [place] [address] [facility] - [facility] Medicine09/05/22 Romulo Clark DO [address] [place] [address] PCP - O [facility]06/06/24Team MemberRelationshipSpecialtyStart DateEnd Date Romulo Clark, DO [address] [place] [address] PCP - [facility]04/09/17 Romulo Clark, DO [address] [place] [address] [facility]06/05/24Te MemberRelationshipSpecialtyStart DateEnd Date Romulo Clark, DO [address] [place] [address] [facility] - [facility]09/05/22 Romulo Clark, DO [address] [place] [address] PCP - [facility]06/06/24Te MemberRelationshipSpecialtyStart DateEnd Date Romulo Clark, DO [address] [place] [address] [facility]04/09/17 Romulo Clark, DO [address] [place] [address] [facility]06/05/24Team MemberRelationshipSpecialtyStart DateEnd Date Romulo Clark, DO [address] [place] [address] PCP - GeneralFamily Hyzvygfz73/11/17 Romulo Clark, DO [address] [place] [address] [facility]erring[facility] Medicine06/05/24Team MemberRelationshipSpecialtyStart DateEnd Date Romulo Clark, DO [address] [place] [address] [facility] - [facility]09/05/22 Romulo Clark, DO [address] [place] [address] PCP - [facility]06/06/24Team MemberRelationshipSpecialtyStart DateEnd Date Romulo Clark, DO [address] [place] [address] [facility] - [facility] Zrqprtop26/11/17 Romulo Clark, DO [address] [place] [address] [facility]erring[facility] Medicine06/05/24Team MemberRelationshipSpecialtyStart DateEnd Date Romulo Clark, DO [address] [place] [address] PCP - [facility] Ldwcpqsk36/11/17 Romulo Clark, DO [address] [place] [address] [facility]erring[facility] Medicine06/05/24Team MemberRelationshipSpecialtyStart DateEnd Date Romulo Clark, DO [address] [place] [address] [facility] Cjxsrkja62/11/17 Romulo Clark, DO [address] [place] [address] [facility] Medicine06/05/24Team MemberRelationshipSpecialtyStart DateEnd Date Romulo Clark, DO [address] [place] [address] PCP - [facility] Medicine06/26/24Team MemberRelationshipSpecialtyStart DateEnd Date Romulo Clark, DO [address] [place] [address] PCP - [facility] Medicine06/26/24Team MemberRelationshipSpecialtyStart DateEnd Date Romulo Clark, DO [address] [place] [address] PCP - [facility] Medicine06/26/24Team MemberRelationshipSpecialtyStart DateEnd Date Romulo Clark, DO [address] [place] [address] PCP - [facility] Medicine06/26/24Team MemberRelationshipSpecialtyStart DateEnd Date Romulo Clark, DO [address] [place] [address] PCP - Generalmily Medicine09/05/22 Romulo Clark, DO [address] [place] [address] PCP - O [facility]06/06/24Team MemberRelationshipSpecialtyStart DateEnd Date Romulo Clark, DO [address] [place] [address] PCP - [facility]06/26/24 Team Status: Inactive Member Role Status Dates Romulo Clark DO Primary Care Provider Active Start: August 08, 2024 End: August 08, 2024Heidi SAMIA Rowell ACNP-BCAttending ProviderActiveStart: August 08, 2024 End: August 08, 2024Team MemberRelationshipSpecialtyStart DateEnd Date Romulo Clark, DO [address] [place] [address] PCP - [facility]09/05/22 Romulo Clark, DO [address] [place] [address] [facility] - [facility]06/06/24Team MemberRelationshipSpecialtyStart DateEnd Date Romulo Clark, DO [address] [place] [address] PCP - [facility]09/05/22 Romulo Clark, DO [address] [place] [address] PCP - [facility]06/06/24Team MemberRelationshipSpecialtyStart DateEnd Date Romulo Clark, DO [address] [place] [address] PCP - [facility]09/05/22 Romulo Clark, DO [address] [place] [address] PCP - [facility]06/06/24Team MemberRelationshipSpecialtyStart DateEnd Date Romulo Clark, DO [address] [place] [address] PCP - [facility] Medicine06/26/24Team MemberRelationshipSpecialtyStart DateEnd Date Romulo Clark, DO [address] [place] [address] [facility] - [facility]09/05/22 Romulo Clark, DO [address] [place] [address] PCP - [facility]06/06/24Team MemberRelationshipSpecialtyStart DateEnd Date Romulo Clark, DO [address] [place] [address] PCP - [facility] Kufhycdw71/11/17 Romulo Clark, DO [address] [place] [address] [facility]06/05/24Team MemberRelationshipSpecialtyStart DateEnd Date Romulo Clark, DO [address] [place] [address] PCP - [facility] Medicine06/26/24Team MemberRelationshipSpecialtyStart DateEnd Date Romulo Clark, DO [address] [place] [address] PCP - GeneralFamily Dcyondek62/11/17 Romulo Clark, DO [address] [place] [address] Referringmily Medicine06/05/24Team MemberRelationshipSpecialtyStart DateEnd Date Romulo Clark, DO [address] [place] [address] [facility]09/05/22 Romulo Clark, DO [address] [place] [address] PCP - [facility]06/06/24Team MemberRelationshipSpecialtyStart DateEnd Date Romulo Clark, DO [address] [place] [address] [facility] Pyvazgaz40/11/17 Romulo Clark, DO [address] [place] [address] [facility]erring[facility] Medicine06/05/24Team MemberRelationshipSpecialtyStart DateEnd Date Romulo Clark, DO [address] [place] [address] PCP - [facility] Medicine09/05/22 Romulo Clark, DO [address] [place] [address] PCP - [facility]CO [facility]06/06/24Team MemberRelationshipSpecialtyStart DateEnd Date Romulo Clark, DO [address] [place], [place] [id number] PCP - [facility]09/05/22 Romulo Clark, DO [address] [place] [address] PCP - [facility]06/06/24Team MemberRelationshipSpecialtyStart DateEnd Date Romulo Clark, DO [address] [place] [address] PCP - [facility]09/05/22 Romulo Clark, DO [address] [place] [address] PCP - [facility]06/06/24 Goals (unrecognized section and content) Goals may be documented in a n alternate sectionGoals may be documented in an alternate sectionNo InformationGoals may be documented in an alternate sectionGoals may be documented in an alternate sectionGoals may be documented in an alternate sectionGoals may be documented in an alternate section Continuous Active and Recently Administ ered Medications (unrecognized section and content) Medication Order/ lactated Ringer's infusion (CANCELED) 100 mL/hr, intravenous, Continuous, Starting on Abigail 07/03/24 at 0900, For 1 day, Recovery (only) * 0900 (Continued from OR - Provider: Melia Kwong RN) * 0945 (Stopped - Provider: Constance Mendosa RN) Medication Order/ bacitracin ointment (CANCELED) As needed, Starting on Abigail 07/03/24 at 0842, Intraprocedure * 0842 (Given - Provider: Mariluz Rubin MD) methylene blue (Provayblue) injection (CANCELED) As needed, Starting on Abigail 07/03/24 at 0842, Intraprocedure * 0842 (Given - Provider: Mariluz Rubin MD) sodium chloride 0.9 % irrigation solution (CANCELED) As needed, Starting on Abigail 07/03/24 at 0842, Intraprocedure * 0842 (Given - Provider: Mariluz Rubin MD) Medication Order504/504/01/2025 bacitracin ointment (CANCELED) As needed, Starting on Abigail 08/07/24 at 1044, Intraprocedure * 1044 (Given - Provider: Mariluz Rubin MD) lidocaine-epinephrine (Xylocaine W/EPI) 1 %-1:100,000 injection (CANCELED) As needed, Starting on Abigail 08/07/24 at 1050, Intraprocedure * 1050 (Given - Provider: Mariluz Rubin MD) FOR RECORDS PERTAINING TO PATIENTS WHO ARE OR HAVE BEEN ENROLLED IN A CHEMICAL DEPENDENCY/SUBSTANCEABUSE PROGRAM, SOME INFORMATION MAY BE OMITTED. This clinical summary was aggregated from multiple sources. Caution should be exercised in using it in the provision of clinical care. This summary normalizes information from multiple sources, and as a consequence, information in this document may materially change the coding, format and clinical context of patient data. In addition, data may be omitted in some cases. CLINICAL DECISIONS SHOULD BE BASED ON THE PRIMARY CLINICAL RECORDS. [facility] [employer] [facility]. provides no warranty or guarantee of the accuracy or completeness of information in this document.
[2025-02-18 11:27] LABS: Glucose Urine UA NEGATIVE (NEGATIVE)
[2025-02-18 12:22] LABS: Cast Seen? SEEN #/LPF (NONE SEEN); Crystals Seen? None Seen #/HPF (None Seen)
== END 2025-02-18 11:08 | disposition home or self-care (01) ==
LOC: LAB 11:08
PROVIDERS: PCP Family Medicine; Visit Provider Family Medicine
DX: R35.0 Frequency of micturition (principal)
CPT/HCPCS: 81001